=== PATIENT | male | born 1960 | race Caucasian/White ===

== ENCOUNTER 2018-11-03 05:13 | Emergency (ER) | payer OTHER ==
--- NOTE | 2018-11-03 06:06 | ED ---
General Adult HPI - General Source: patient Mode of arrival: wheelchair Limitations: no limitations <ShaeEttaquyen Mccann - Last Filed: 11/03/18 06:04> <Freddy Paez - Last Filed: 11/03/18 10:20> - General Chief complaint: GI Bleed Stated complaint: GI Bleed/Abdominal Pain Time Seen by Provider: 11/03/18 05:34 - History of Present Illness Initial comments: Dictation was produced using [employer] dictation software. please excuse any grammatical, word or spelling errors. Chief Complaint: 57-year-old male with past medical history of rectal cancer status post ileostomy, rectal surgery, colectomy presents with abdominal pain and bright red blood per rectum. History of Present Illness: Patient is a 57-year-old male with chief complaint of abdominal pain and bright red blood per rectum. Patient states he's been having intermittent bowels of GI bleeding. Patient states he was recently diagnosed with rectal cancer. July he had a rectal surgery. He reports that he had 10 cm removed from his rectum. He didn't had an ileostomy with ileostomy reversal. Patient states that his pain is mainly localized to his right abdomen. He denies any nausea or vomiting. The ROS documented in this emergency department record has been reviewed and confirmed by me. Those systems with pertinent positive or negative responses have been documented in the HPI. All other systems are other negative and/or noncontributory. PHYSICAL EXAM: General Impression: Alert and oriented x3, mild distress secondary to pain HEENT: Normocephalic atraumatic, extra-ocular movements intact, pupils equal and reactive to light bilaterally, mucous membranes moist. Cardiovascular: Heart regular rate and rhythm, S1&S2 audible, no murmurs, rubs or gallops Chest: Lungs clear to auscultation bilaterally, no rhonchi, no wheeze, no rales Abdomen: Diffuse abdominal tenderness worse in the right lower quadrant. Musculoskeletal: Pulses present and equal in all extremities, no peripheral edema Motor: Power 5/5 bilaterally, no focal deficits noted Neurological: CN II-XII grossly intact, no focal motor or sensory deficits noted Skin: Intact with no visualized rashes Psych: Normal affect and mood ED course: 57-year-old male presents with bright red blood per rectum and intermittent episodes of abdominal pain. As upon arrival shows heart rate of 102, rest of vital signs within acceptable limits. EKG interpretation: Ventricular rate 97, normal sinus rhythm, VT interval 144, care is 90, QTc 436. No VT prolongation, no QTC prolongation, no ST or T-wave changes noted. Overall, this EKG is unremarkable (Indra Kaufman) - Related Data Home Medications Medication Instructions Recorded Confirmed Docusate [Colace] 100 mg PO DAILY PRN 11/03/18 11/03/18 Ibuprofen [Motrin] 800 mg PO Q6H PRN 11/03/18 11/03/18 Lisinopril [Zestril] 10 mg PO DAILY 11/03/18 11/03/18 Loperamide HCl [Imodium A-D] 2 mg PO Q4H PRN 11/03/18 11/03/18 Allergies Allergy/AdvReac Type Severity Reaction Status Date / Time No Known Allergies Allergy Verified 11/03/18 08:51 Review of Systems ROS Other: All systems not noted in ROS Statement are negative. <Indra Kaufman - Last Filed: 11/03/18 06:04> ROS Other: All systems not noted in ROS Statement are negative. <Freddy Paez - Last Filed: 11/03/18 10:20> ROS Statement: Those systems with pertinent positive or pertinent negative responses have been documented in the HPI. Past Medical History Past Medical History: Cancer, Hypertension Additional Past Medical History / Comment(s): rectal, back pain, History of Any Multi-Drug Resistant Organisms: None Reported Past Surgical History: Appendectomy, Orthopedic Surgery Additional Past Surgical History / Comment(s): ileostomy with reversal, left elbow Past Psychological History: No Psychological Hx Reported Smoking Status: Former smoker Past Alcohol Use History: Rare Past Drug Use History: None Reported <Indra Kaufman - Last Filed: 11/03/18 06:04> General Exam Limitations: no limitations <Indra Kaufman - Last Filed: 11/03/18 06:04> Course Vital Signs 11/03/18 11/03/18 05:18 08:00 Temperature 98.9 F 97.9 F Pulse Rate 103 H 97 Respiratory 18 16 Rate Blood Pressure 155/84 166/98 O2 Sat by Pulse 98 96 Oximetry Medical Decision Making - Lab Data Result diagrams: 11/03/18 05:10 11/03/18 05:10 - Radiology Data Radiology results: report reviewed (I did review the imaging and report or is evidence of abnormal extraluminal air within an abnormal presacral soft tissue the suspected to be related to the patient's underlying rectal cancer.), image reviewed <Freddy Paez - Last Filed: 11/03/18 10:20> - Medical Decision Making I did discuss the eye with the patient. He was endorsed to me at shift change at 7 AM. This is pending lab and x-ray/CAT scan results CAT scan does show the evidence of extraluminal air within abnormal soft tissue in the presacral region. Patient will require transfer to [facility] in [place] where his surgeon Dr. Cast is at. I did discuss the case with Dr. Villalobos at [facility] emergency department was agreed to accept the patient transfer. Of note the patient has had more rectal bleeding since his arrival. He's had more abdominal pain. (Freddy Paez) - Lab Data Lab Results 11/03/18 11/03/18 11/03/18 Range/Units 05:10 05:10 05:10 WBC 7.3 (3.8-10.6) k/uL RBC 3.98 L (4.30-5.90) m/uL Hgb 10.1 L (13.0-17.5) gm/dL Hct 32.1 L (39.0-53.0) % MCV 80.7 (80.0-100.0) fL MCH 25.5 (25.0-35.0) pg MCHC 31.6 (31.0-37.0) g/dL RDW 14.7 (11.5-15.5) % Plt Count 253 (150-450) k/uL Neutrophils % 76 % Lymphocytes % 12 % Monocytes % 8 % Eosinophils % 2 % Basophils % 0 % Neutrophils # 5.6 (1.3-7.7) k/uL Lymphocytes # 0.9 L (1.0-4.8) k/uL Monocytes # 0.6 (0-1.0) k/uL Eosinophils # 0.2 (0-0.7) k/uL Basophils # 0.0 (0-0.2) k/uL Sodium 138 (137-145) mmol/L Potassium 4.0 (3.5-5.1) mmol/L Chloride 105 (98-107) mmol/L Carbon Dioxide 26 (22-30) mmol/L Anion Gap 7 mmol/L BUN 14 (9-20) mg/dL Creatinine 0.66 (0.66-1.25) mg/dL Est GFR (CKD-EPI)AfAm >90 (>60 ml/min/1.73 sqM) Est GFR (CKD-EPI)NonAf >90 (>60 ml/min/1.73 sqM) Glucose 119 H (74-99) mg/dL Calcium 8.8 (8.4-10.2) mg/dL Magnesium 2.0 (1.6-2.3) mg/dL Total Bilirubin 0.5 (0.2-1.3) mg/dL AST 15 L (17-59) U/L ALT 22 (21-72) U/L Alkaline Phosphatase 42 (38-126) U/L Total Protein 6.3 (6.3-8.2) g/dL Albumin 3.2 L (3.5-5.0) g/dL Stool Occult Blood (Negative) Blood Type A Positive Blood Type Recheck CABO Indicated Antibody Screen NEGATIVE Spec Expiration Date 11/06/2018 - 230911/03/18 Range/Units 08:09 WBC (3.8-10.6) k/uL RBC (4.30-5.90) m/uL Hgb (13.0-17.5) gm/dL Hct (39.0-53.0) % MCV (80.0-100.0) fL MCH (25.0-35.0) pg MCHC (31.0-37.0) g/dL RDW (11.5-15.5) % Plt Count (150-450) k/uL Neutrophils % % Lymphocytes % % Monocytes % % Eosinophils % % Basophils % % Neutrophils # (1.3-7.7) k/uL Lymphocytes # (1.0-4.8) k/uL Monocytes # (0-1.0) k/uL Eosinophils # (0-0.7) k/uL Basophils # (0-0.2) k/uL Sodium (137-145) mmol/L Potassium (3.5-5.1) mmol/L Chloride (98-107) mmol/L Carbon Dioxide (22-30) mmol/L Anion Gap mmol/L BUN (9-20) mg/dL Creatinine (0.66-1.25) mg/dL Est GFR (CKD-EPI)AfAm (>60 ml/min/1.73 sqM) Est GFR (CKD-EPI)NonAf (>60 ml/min/1.73 sqM) Glucose (74-99) mg/dL Calcium (8.4-10.2) mg/dL Magnesium (1.6-2.3) mg/dL Total Bilirubin (0.2-1.3) mg/dL AST (17-59) U/L ALT (21-72) U/L Alkaline Phosphatase (38-126) U/L Total Protein (6.3-8.2) g/dL Albumin (3.5-5.0) g/dL Stool Occult Blood Positive (Negative) Blood Type Blood Type Recheck Antibody Screen Spec Expiration Date Disposition <Indra Kaufman - Last Filed: 11/03/18 06:04> Is patient prescribed a controlled substance at d/c from ED?: No - Out of Hospital Transfer - Req. Specs Out of Hospital Transfer - Requested Specifics: Other Emergency Center <Freddy Paez - Last Filed: 11/03/18 10:20> Clinical Impression: Rectal bleeding, Hematochezia, Abdominal pain, Anemia, History of rectal cancer Disposition: OTHER INSTITUTION NOT DEFINED Condition: Serious Referrals: El Sheppard DO [Primary Care Provider] - 1-2 days
[2018-11-03 06:25] LABS: Basophils % (A) 0 %; Eosinophils # (A) 0.2 k/uL (0-0.7); Eosinophils % (A) 2 %; HCT 32.1 % (39.0-53.0); HGB 10.1 gm/dL (13.0-17.5); Lymphocytes # (A) 0.9 k/uL (1.0-4.8); Lymphocytes % (A) 12 %; MCH 25.5 pg (25.0-35.0); MCHC 31.6 g/dL (31.0-37.0); MCV 80.7 fL (80.0-100.0); Mean Platelet Volume 6.2; Monocytes # (A) 0.6 k/uL (0-1.0); Monocytes % (A) 8 %; Neutrophils # (A) 5.6 k/uL (1.3-7.7); Neutrophils % (A) 76 %; Platelet Count 253 k/uL (150-450); RBC 3.98 m/uL (4.30-5.90); RDW 14.7 % (11.5-15.5); WBC 7.3 k/uL (3.8-10.6)
[2018-11-03 06:36] LABS: ALT 22 U/L (21-72); AST 15 U/L (17-59); Albumin 3.2 g/dL (3.5-5.0); Alkaline Phosphatase 42 U/L (38-126); Anion Gap 7 mmol/L; Blood Urea Nitrogen 14 mg/dL (9-20); Calcium 8.8 mg/dL (8.4-10.2); Carbon Dioxide 26 mmol/L (22-30); Chloride 105 mmol/L (98-107); Glucose 119 mg/dL (74-99); Sodium 138 mmol/L (137-145); Total Bilirubin 0.5 mg/dL (0.2-1.3); Total Protein 6.3 g/dL (6.3-8.2)
[2018-11-03] MEDS ORDERED: fentaNYL (PF) 50 MCG/ML 2 ML AMP IV STA ×2 (07:34→10:18)
--- NOTE | 2018-11-03 07:35 | CT ---
EXAMINATION TYPE: CT abdomen pelvis w con DATE OF EXAM: 11/03/2018 COMPARISON: CT 08/29/2017, 08/16/2017 HISTORY: Right side swelling, pain, nausea, vomiting CT DLP: 2143.9 mGycm Automated exposure control for dose reduction was used. TECHNIQUE: Helical acquisition of images from the lung bases through the pelvis have been completed. CONTRAST: Performed without Oral Contrast and with IV Contrast, patient injected with 100 mL of Isovue 300. FINDINGS: LUNG BASES: No significant interval change is appreciated. Posterior diaphragmatic hernia on the righ t is noted, there is fat within the right lung base as on prior exam. No pleural or pericardial effus ion. AORTA: No significant abnormality is appreciated. LIVER/GB: No significant abnormality is appreciated. Colonic interposition noted anterior to the live r somewhat increased compared to prior exams. Subcentimeter hypodensity on axial image 29 within the posterior right lobe of the liver may been present on previous and is indeterminate Gallbladder is no rmal. PANCREAS: No significant abnormality is seen. SPLEEN: No significant abnormality is seen. ADRENALS: No significant abnormality is seen. KIDNEYS: Small hypodensity within the right kidney is stable laterally in likely represents cortical cyst. No hydronephrosis bilaterally. REPRODUCTIVE ORGANS: No significant interval change is seen, some calcification associated with the p rostate suspected BOWEL: Colonic stent is in place. Abnormal soft tissue present in the presacral location has develop ed in the interval. Some lucency is present within the abnormal presacral soft tissue, likely extrape ritoneal, there is soft tissue thickening of the colon along the distribution of the stent within the sigmoid. Anterior abdominal wall hernia is present in the right lower quadrant and has developed in the interval, suspect prior surgery at this level, surgical juan jose are present along the small bowel loops, no evident bowel obstruction. Bowel loops present within what may have been region of prior s urgical stoma and parastomal hernia. There are fluid-filled loops of small bowel without distention. FREE AIR: No Free Air visible. ASCITES: None visible. PELVIC ADENOPATHY: None visualized. RETROPERITONEAL ADENOPATHY: No Retroperitoneal Adenopathy visible. URINARY BLADDER: Thickening of the urinary bladder is noted, correlate to exclude cystitis versus po sttreatment change, chronic outlet obstruction OSSEOUS STRUCTURES: There are degenerative disc changes in the visualized spine. Arthropathy present in the right hip.. IMPRESSION: POSTOPERATIVE POSTPROCEDURAL CHANGES DESCRIBED. ABNORMAL EXTRALUMINAL AIR WITHIN THE ABNORMAL PRES ACRAL SOFT TISSUES, SUSPECT FINDINGS ARE RELATED TO UNDERLYING CARCINOMA. Follow-up may be of benefit .
[2018-11-03 10:30] VITALS: RESP 18
[2018-11-03 11:02] VITALS: BP 159/92; PULSE 91; TEMP 98.2
== END 2018-11-03 11:15 | disposition other institution (70) ==
LOC: EC 05:13
DX: K92.1 Melena (principal); D64.9 Anemia, unspecified; I10 Essential (primary) hypertension; Z87.891 Personal history of nicotine dependence; Z79.899 Other long term (current) drug therapy; Z85.048 Personal history of other malignant neoplasm of rectum, rectosigmoid junction, and anus; Z90.49 Acquired absence of other specified parts of digestive tract; Z98.890 Other specified postprocedural states
CPT/HCPCS: 36415; 93005; 86900; 86901; 80053; 83735; 85025; 86850; 82272; 74177; 99285; 96374; 96376; J3010; Q9967

== ENCOUNTER → 2018-11-08 | Outpatient (CLI) | payer OTHER | END | disposition home or self-care (01) | LOC: RADMRIMAIN 18:07 | PROVIDERS: ATTEND Family Medicine | DX: Z53.9 Procedure and treatment not carried out, unspecified reason (principal) ==

== ENCOUNTER → 2018-11-30 | Outpatient (CLI) | payer OTHER ==
--- NOTE | 2018-12-01 13:32 | PE ---
EXAMINATION TYPE: PET CT fusion skull to thigh DATE OF EXAM: 11/30/2018 COMPARISON: CT abdomen pelvis 11/03/2018, CT chest 06/29/2018 Prior PET/CT: None. Exam is labeled subsequent although no history is pro vided where the prior PET/CT has been performed. HISTORY: Rectal cancer TECHNIQUE: Following the intravenous administration of 13.537 mCi of F-18 FDG, whole body images are performed from the skull base to the midthigh. Images are reviewed on the computer in the coronal, axial, and sagittal planes. Reconstructed rotating images are created on independent workstation and reviewed on the computer. A localization and attenuation correction CT is performed in conjunction with the PET scan. DLP: 665.81 mGycm SCAN: Subsequent. Images are unavailable. Blood glucose: 112 mg/dL Average Mediastinum SUV: 1.26 Average Liver SUV: 2.42 FINDINGS: NECK: No suspicious uptake. There is uptake at the level of vocal cords which could be related to fo rmation during the time of the exam. THORAX: No abnormal uptake ABDOMEN: No abnormal uptake PELVIS: There is uptake within the distal sigmoid colon extending to the level the rectum. This appea rs to be the level of a stent. No suspicious uptake within adenopathy is evident. OSSEOUS STRUCTURES: No abnormal uptake LOCALIZATION CT: There is a right anterior pelvic wall herniation containing multiple loops of bowel. No obstruction is evident. COMPARISON: The ascending thoracic aorta at the level of main pulmonary artery is 3.6 cm. The main pu lmonary artery the bifurcation is 3.0 cm. Mild coronary artery calcification is present. Gestational pancreas is evident. IMPRESSION: 1. No suspicious uptake suggestive for metastatic disease. 2. There is uptake within the region of the stent which could be inflammatory in nature. Uptake withi n masslike areas are not identified.
== END ==
LOC: RADPETMAIN 15:27
PROVIDERS: ATTEND Internal Medicine Hematology & Oncology
DX: C20 Malignant neoplasm of rectum (principal)
CPT/HCPCS: 78815; A9552

== ENCOUNTER 2019-05-21 14:04 | Emergency (ER) | payer OTHER ==
[2019-05-21] MEDS ORDERED: ONDANSETRON 4 MG/2 ML VIAL IVP STA (14:57)
[2019-05-21] MEDS ORDERED: SODIUM CHLORIDE 0.9% 1,000 ML IV STA (14:57)
[2019-05-21] MEDS ORDERED: MORPHINE SULFATE 4 MG/ML SYRINGE IV STA (14:57)
[2019-05-21 15:09] LABS: Anisocytosis Slight; Basophils % (A) 0 %; Eosinophils % (A) 0 %; HCT 34.6 % (39.0-53.0); HGB 11.5 gm/dL (13.0-17.5); Lymphocytes # (A) 0.4 k/uL (1.0-4.8); Lymphocytes % (A) 4 %; MCH 26.7 pg (25.0-35.0); MCHC 33.1 g/dL (31.0-37.0); MCV 80.7 fL (80.0-100.0); Mean Platelet Volume 6.8; Monocytes # (A) 0.2 k/uL (0-1.0); Monocytes % (A) 2 %; Neutrophils # (A) 9.3 k/uL (1.3-7.7); Neutrophils % (A) 93 %; Platelet Count 281 k/uL (150-450); RBC 4.29 m/uL (4.30-5.90); RDW 17.2 % (11.5-15.5)
[2019-05-21 15:23] LABS: ALT 15 U/L (21-72); AST 18 U/L (17-59); African American GFR (CKD) >90 (>60 ml/min/1.73 sqM); Albumin 4.2 g/dL (3.5-5.0); Alkaline Phosphatase 66 U/L (38-126); Amylase 48 U/L (30-110); Anion Gap 9 mmol/L; Blood Urea Nitrogen 15 mg/dL (9-20); Calcium 9.7 mg/dL (8.4-10.2); Carbon Dioxide 23 mmol/L (22-30); Chloride 105 mmol/L (98-107); Glucose 175 mg/dL (74-99); Sodium 137 mmol/L (137-145); Total Bilirubin 0.5 mg/dL (0.2-1.3); Total Protein 7.7 g/dL (6.3-8.2)
--- NOTE | 2019-05-21 15:48 | ED ---
Nausea/Vomiting/Diarrhea HPI - General Chief complaint: Nausea/Vomiting/Diarrhea Stated complaint: N & V Time Seen by Provider: 05/21/19 14:13 Source: patient Mode of arrival: wheelchair Limitations: no limitations - History of Present Illness Initial comments: Patient is a 58-year-old male presenting to the emergency department with complaints of nausea, vomiting, abdominal pain 2 days. Patient has past medical history of rectal cancer with colon resection. Patient states the last 2 days he has been nauseous, vomiting and right sided abdominal pain. Patient has also been having diarrhea however that is his normal since his prior surgeries. Patient is denying fever although he has been having hot flashes along with chills on and off with the nausea. Patient denies any chest pain, shortness of breath. Patient denies any urinary complaints. Patient does have Donovan 10's at home that he takes twice a day for his continuous abdominal pain however he has been vomiting for the past 2 days and does not know if the pills in his system. Patient has no other complaints at this time. Upon arrival to ER, vital signs are stable. - Related Data Home Medications Medication Instructions Recorded Confirmed Lisinopril [Zestril] 10 mg PO DAILY 11/03/18 05/21/19 Loperamide HCl [Imodium A-D] 2 mg PO Q4H PRN 11/03/18 05/21/19 Diphenox-Atrop 2.5-0.025 mg 1 tab PO TID PRN 05/21/19 05/21/19 [Lomotil] Hydrocodone/Acetaminophen [Donovan 2 tab PO Q6HR PRN 05/21/19 05/21/19 10-325] Previous Rx's Medication Instructions Recorded Ondansetron Odt [Zofran Odt] 4 mg PO Q8HR PRN #10 tab 05/21/19 Allergies Allergy/AdvReac Type Severity Reaction Status Date / Time No Known Allergies Allergy Verified 05/21/19 14:41 Review of Systems ROS Statement: Those systems with pertinent positive or pertinent negative responses have been documented in the HPI. ROS Other: All systems not noted in ROS Statement are negative. Past Medical History Past Medical History: Cancer, Hypertension Additional Past Medical History / Comment(s): rectal, back pain, History of Any Multi-Drug Resistant Organisms: None Reported Past Surgical History: Appendectomy, Orthopedic Surgery Additional Past Surgical History / Comment(s): ileostomy with reversal, left elbow Past Psychological History: No Psychological Hx Reported Smoking Status: Former smoker Past Alcohol Use History: Rare Past Drug Use History: None Reported General Exam - General Exam Comments Initial Comments: GENERAL: Disheveled appearance, appears in mild distress secondary to abdominal pain, obese. HEAD: Atraumatic, normocephalic. EYES: Pupils equal round and reactive to light, extraocular movements intact, sclera anicteric, conjunctiva are normal. ENT: TMs normal, nares patent, oropharynx clear without exudates. Moist mucous membranes. NECK: Normal range of motion, supple without lymphadenopathy or JVD. LUNGS: Breath sounds clear to auscultation bilaterally and equal. No wheezes rales or rhonchi. HEART: Regular rate and rhythm without murmurs, rubs or gallops. ABDOMEN: Tenderness to palpation on the right upper quadrant and right side. There is some firmness to the right side surrounding the abdominal scars from prior surgeries. No erythema of the overlying skin. Soft, normoactive bowel sounds. No guarding, no rebound. : Deferred EXTREMITIES: Normal range of motion, no pitting or edema. No clubbing or cyanosis. NEUROLOGICAL: Cranial nerves II through XII grossly intact. Normal speech, normal gait. PSYCH: Normal mood, normal affect. SKIN: Warm, Dry, normal turgor, no rashes or lesions noted. Limitations: no limitations Course Vital Signs 05/21/19 05/21/19 05/21/19 14:06 16:42 18:02 Temperature 97.8 F 98.5 F Pulse Rate 95 77 79 Respiratory 16 16 18 Rate Blood Pressure 155/81 147/89 154/82 O2 Sat by Pulse 97 99 100 Oximetry Medical Decision Making - Medical Decision Making Patient is a 58-year-old male presenting with nausea, vomiting, abdominal pain 2 days. Patient has history of rectal cancer with resection. Upon arrival to ER, vital signs are stable. On exam patient has tenderness of the right upper quadrant. CBC, CMP are within normal limits. Lactic acid is 1.4. UA is normal, no signs of infection. CT of the abdomen shows no bowel obstruction. No suspicious or Acute findings on this study. CT was compared to previous in October 2018. Patient was given fluids, pain medication, Zofran. Patient reports improvement in symptoms. Patient will follow up with surgeon as discussed several lipoma. Patient was given copy of computed tomography scan to bring to appointment. Patient was also sent home with Zofran for nausea. Patient stable for discharge at this time. Return parameters were discussed with the patient he verbalizes understanding. Case discussed with Dr. Sesay. - Lab Data Result diagrams: 05/21/19 14:25 05/21/19 14:25 Lab Results 05/21/19 05/21/19 05/21/19 Range/Units 14:25 14:25 14:25 WBC 10.0 (3.8-10.6) k/uL RBC 4.29 L (4.30-5.90) m/uL Hgb 11.5 L (13.0-17.5) gm/dL Hct 34.6 L (39.0-53.0) % MCV 80.7 (80.0-100.0) fL MCH 26.7 (25.0-35.0) pg MCHC 33.1 (31.0-37.0) g/dL RDW 17.2 H (11.5-15.5) % Plt Count 281 (150-450) k/uL Neutrophils % 93 % Lymphocytes % 4 % Monocytes % 2 % Eosinophils % 0 % Basophils % 0 % Neutrophils # 9.3 H (1.3-7.7) k/uL Lymphocytes # 0.4 L (1.0-4.8) k/uL Monocytes # 0.2 (0-1.0) k/uL Eosinophils # 0.0 (0-0.7) k/uL Basophils # 0.0 (0-0.2) k/uL Anisocytosis Slight Sodium 137 (137-145) mmol/L Potassium 4.0 (3.5-5.1) mmol/L Chloride 105 (98-107) mmol/L Carbon Dioxide 23 (22-30) mmol/L Anion Gap 9 mmol/L BUN 15 (9-20) mg/dL Creatinine 0.80 (0.66-1.25) mg/dL Est GFR (CKD-EPI)AfAm >90 (>60 ml/min/1.73 sqM) Est GFR (CKD-EPI)NonAf >90 (>60 ml/min/1.73 sqM) Glucose 175 H (74-99) mg/dL Plasma Lactic Acid Gerry 1.4 (0.7-2.0) mmol/L Calcium 9.7 (8.4-10.2) mg/dL Total Bilirubin 0.5 (0.2-1.3) mg/dL AST 18 (17-59) U/L ALT 15 L (21-72) U/L Alkaline Phosphatase 66 (38-126) U/L Total Protein 7.7 (6.3-8.2) g/dL Albumin 4.2 (3.5-5.0) g/dL Amylase 48 (30-110) U/L Lipase 14 L (23-300) U/L Urine Color Urine Appearance (Clear) Urine pH (5.0-8.0) Ur Specific [employer] (1.001-1.035) Urine Protein (Negative) Urine Glucose (UA) (Negative) Urine Ketones (Negative) Urine Blood (Negative) Urine Nitrite (Negative) Urine Bilirubin (Negative) Urine Urobilinogen (<2.0) mg/dL Ur Leukocyte Esterase (Negative) 05/21/19 Range/Units 16:36 WBC (3.8-10.6) k/uL RBC (4.30-5.90) m/uL Hgb (13.0-17.5) gm/dL Hct (39.0-53.0) % MCV (80.0-100.0) fL MCH (25.0-35.0) pg MCHC (31.0-37.0) g/dL RDW (11.5-15.5) % Plt Count (150-450) k/uL Neutrophils % % Lymphocytes % % Monocytes % % Eosinophils % % Basophils % % Neutrophils # (1.3-7.7) k/uL Lymphocytes # (1.0-4.8) k/uL Monocytes # (0-1.0) k/uL Eosinophils # (0-0.7) k/uL Basophils # (0-0.2) k/uL Anisocytosis Sodium (137-145) mmol/L Potassium (3.5-5.1) mmol/L Chloride (98-107) mmol/L Carbon Dioxide (22-30) mmol/L Anion Gap mmol/L BUN (9-20) mg/dL Creatinine (0.66-1.25) mg/dL Est GFR (CKD-EPI)AfAm (>60 ml/min/1.73 sqM) Est GFR (CKD-EPI)NonAf (>60 ml/min/1.73 sqM) Glucose (74-99) mg/dL Plasma Lactic Acid Gerry (0.7-2.0) mmol/L Calcium (8.4-10.2) mg/dL Total Bilirubin (0.2-1.3) mg/dL AST (17-59) U/L ALT (21-72) U/L Alkaline Phosphatase (38-126) U/L Total Protein (6.3-8.2) g/dL Albumin (3.5-5.0) g/dL Amylase (30-110) U/L Lipase (23-300) U/L Urine Color Yellow Urine Appearance Clear (Clear) Urine pH 7.0 (5.0-8.0) Ur Specific [employer] >1.050 H (1.001-1.035) Urine Protein Trace H (Negative) Urine Glucose (UA) Negative (Negative) Urine Ketones Negative (Negative) Urine Blood Negative (Negative) Urine Nitrite Negative (Negative) Urine Bilirubin Negative (Negative) Urine Urobilinogen <2.0 (<2.0) mg/dL Ur Leukocyte Esterase Negative (Negative) Disposition Clinical Impression: Nausea & vomiting, Abdominal pain Disposition: HOME SELF-CARE Condition: Stable Instructions (If sedation given, give patient instructions): Abdominal Pain (ED) Additional Instructions: Please return to the Emergency Department if symptoms worsen or any other co ncerns. Follow up with surgeon as discussed. Bring CT with you. Take Zofran as needed for nausea. Prescriptions: Ondansetron Odt [Zofran Odt] 4 mg PO Q8HR PRN #10 tab PRN Reason: Nausea Is patient prescribed a controlled substance at d/c from ED?: No Referrals: Camden Meier MD [Primary Care Provider] - 1-2 days
--- NOTE | 2019-05-21 16:10 | CT ---
EXAMINATION TYPE: CT abdomen pelvis w con DATE OF EXAM: 05/21/2019 COMPARISON: CT abdomen and pelvis November 03, 2018 HISTORY: Abdominal pain with nausea and vomiting. History of rectal cancer. CT DLP: 2506.0 mGycm, Automated Exposure Control for Dose Reduction was Utilized. CONTRAST: CT scan of the abdomen and pelvis is performed without oral but with IV Contrast, patient injected wi th 100 mL of Isovue 300. FINDINGS: LUNG BASES: Posterior right diaphragmatic hernia redemonstrated. LIVER/GB: No significant abnormality is appreciated. PANCREAS: No significant abnormality is seen. SPLEEN: Splenomegaly redemonstrated measuring 13.7 cm long axis coronal image 64. ADRENALS: No significant abnormality is seen. KIDNEYS: Roughly 1.2 cm simple appearing cyst upper pole right kidney axial image 24 series 301. BOWEL: Evaluation bowel suboptimal secondary to lack of enteric contrast. No suspicious small or larg e bowel dilatation. Persistent right lower quadrant incisional hernia containing bowel that significa ntly changed from most recent CT. Surgical sutures in bowel loop at this level are redemonstrated. Persistent metallic stent in the sigmoid colon and rectum with ill-defined soft tissue presacral spac e near distal aspect of stent axial image 78 redemonstrated. This extends superiorly axial image 70. This has similar appearance to prior study. Neoplasm at this level is suspected. Slight interval prog ression cannot be excluded. No proximal obstruction noted suggesting patency of metallic stent. PROSTATE/SEMINAL VESICLES: No gross abnormality seen. LYMPH NODES: No greater than 1cm abdominal or pelvic lymph nodes are appreciated. OSSEOUS STRUCTURES: Severe superior joint space loss with [id number] formation and subchondral cyst ic change right hip is redemonstrated. OTHER: No significant additional abnormality is seen. IMPRESSION: No bowel obstruction. No suspicious new or acute findings identified on this study.
[2019-05-21 16:46] LABS: Appearance,Urine Clear (Clear); Bilirubin,Urine Negative (Negative); Blood,Urine Negative (Negative); Color,Urine Yellow; Glucose,Urine (UA) Negative (Negative); Ketones,Urine Negative (Negative); Leukocyte Esterase,Urine Negative (Negative); Nitrite,Urine Negative (Negative); Protein,Urine Trace (Negative); Urobilinogen,Urine <2.0 mg/dL (<2.0)
[2019-05-21] MEDS ORDERED: MORPHINE SULFATE 2 MG/ML SYRINGE IVP ONE (16:56)
[2019-05-21] MEDS ORDERED: METOCLOPRAMIDE 5 MG/ML 2 ML VIAL IVP STA (16:56)
[2019-05-21 17:04] LABS: Specific Gravity,Urine >1.050 (1.001-1.035)
[2019-05-21 18:03] VITALS: BP 154/82; PULSE 79; RESP 18; TEMP 98.5
== END 2019-05-21 18:02 | disposition home or self-care (01) ==
LOC: EC 14:04
DX: R10.11 Right upper quadrant pain (principal); R11.2 Nausea with vomiting, unspecified; R19.7 Diarrhea, unspecified; R68.83 Chills (without fever); I10 Essential (primary) hypertension; Z85.048 Personal history of other malignant neoplasm of rectum, rectosigmoid junction, and anus; Z90.49 Acquired absence of other specified parts of digestive tract; Z93.2 Ileostomy status; Z87.891 Personal history of nicotine dependence; Z79.899 Other long term (current) drug therapy
CPT/HCPCS: 36415; 80053; 82150; 83605; 83690; 85025; 81003; 74177; 99285; 96374; 96375 ×2; 96376; 96361 ×3; J2270 ×2; J2765; J2405; Q9967

== ENCOUNTER → 2019-10-02 | Outpatient (CLI) | payer OTHER ==
[2019-10-02 10:45] LABS: Basophils # (A) 0.1 k/uL (0-0.2); Basophils % (A) 1 %; Eosinophils # (A) 0.1 k/uL (0-0.7); Eosinophils % (A) 2 %; HCT 31.3 % (39.0-53.0); HGB 9.4 gm/dL (13.0-17.5); Hypochromasia Marked; Lymphocytes # (A) 0.9 k/uL (1.0-4.8); Lymphocytes % (A) 15 %; MCH 24.2 pg (25.0-35.0); MCHC 29.9 g/dL (31.0-37.0); MCV 80.7 fL (80.0-100.0); Mean Platelet Volume 6.6; Monocytes # (A) 0.5 k/uL (0-1.0); Monocytes % (A) 8 %; Neutrophils # (A) 4.6 k/uL (1.3-7.7); Neutrophils % (A) 72 %; Platelet Count 371 k/uL (150-450); RBC 3.87 m/uL (4.30-5.90); RDW 15.4 % (11.5-15.5); WBC 6.3 k/uL (3.8-10.6)
== END | disposition home or self-care (01) ==
LOC: LABPAT 09:14
PROVIDERS: ATTEND Surgery
DX: Z01.812 Encounter for preprocedural laboratory examination (principal); K43.0 Incisional hernia with obstruction, without gangrene; F17.200 Nicotine dependence, unspecified, uncomplicated; D64.9 Anemia, unspecified
CPT/HCPCS: 36415; 84132; 85025

== ENCOUNTER 2019-10-12 19:43 | Inpatient (IN) | payer OTHER ==
[2019-10-12] MEDS ORDERED: MORPHINE SULFATE 4 MG/ML SYRINGE IV STA (20:22)
[2019-10-12] MEDS ORDERED: PANTOPRAZOLE 40 MG/10 ML VIAL IVP STA (20:22)
[2019-10-12] MEDS ORDERED: SODIUM CHLORIDE 0.9% 1,000 ML IV STA (20:22)
[2019-10-12] MEDS ORDERED: SODIUM CHLORIDE 0.9% 500 ML 500 ML IV STA (20:22)
[2019-10-12] MEDS ORDERED: ONDANSETRON 4 MG/2 ML VIAL IVP STA (20:22)
[2019-10-12] MEDS ORDERED: MORPHINE SULFATE 4 MG/ML SYRINGE IVP PRN (20:22)
--- NOTE | 2019-10-12 20:22 | ED ---
Abdominal Pain HPI - General Chief Complaint: Abdominal Pain Stated Complaint: Abd pain Time Seen by Provider: 10/12/19 20:02 Source: patient, RN notes reviewed, old records reviewed Mode of arrival: ambulatory Limitations: no limitations - History of Present Illness Initial Comments: This is a 58-year-old male to the ER for evaluation abdominal pain with persistent nausea vomiting history of colon cancer, patient presenting for persistent nausea vomiting unable to take the medication patient is scheduled for surgery in the morning with hernia repair with Dr. Lawson. Please undulate his medications down persistent nausea vomiting MD Complaint: abdominal pain -: hour(s), days(s) Location: epigastric, suprapubic Radiation: epigastric, suprapubic Migration to: epigastric, suprapubic Severity: moderate Severity scale (1-10): 4 Quality: aching Consistency: intermittent Improves With: nothing Worsens With: nothing Associated Symptoms: nausea, vomiting, diarrhea Treatments Prior to Arrival: prescription analgesics - Related Data Home Medications Medication Instructions Recorded Confirmed Loperamide HCl [Imodium A-D] 2 mg PO Q4H PRN 11/03/18 10/08/19 Diphenox-Atrop 2.5-0.025 mg 1 tab PO TID PRN 05/21/19 10/08/19 [Lomotil] Hydrocodone/Acetaminophen [[place] 2 tab PO Q6HR PRN 05/21/19 10/08/19 10-325] Triamterene/Hydrochlorothiazid 1 each PO QAM 10/08/19 10/08/19 [Triamterene-Hctz 37.5-25 mg Tb] Allergies Allergy/AdvReac Type Severity Reaction Status Date / Time No Known Allergies Allergy Verified 10/12/19 19:47 Review of Systems ROS Statement: Those systems with pertinent positive or pertinent negative responses have been documented in the HPI. ROS Other: All systems not noted in ROS Statement are negative. Past Medical History Past Medical History: Cancer Additional Past Medical History / Comment(s): rectal, back pain, rectal/colon cancer History of Any Multi-Drug Resistant Organisms: None Reported Past Surgical History: Appendectomy, Orthopedic Surgery Additional Past Surgical History / Comment(s): ileostomy with reversal, left elbow Past Psychological History: No Psychological Hx Reported Smoking Status: Never smoker Past Alcohol Use History: Rare Past Drug Use History: None Reported General Exam Limitations: no limitations General appearance: alert, in no apparent distress Head exam: Present: atraumatic, normocephalic, normal inspection Eye exam: Present: normal appearance, PERRL, EOMI. Absent: scleral icterus, conjunctival injection, periorbital swelling ENT exam: Present: normal exam, mucous membranes moist Neck exam: Present: normal inspection. Absent: tenderness, meningismus, lymphadenopathy Respiratory exam: Present: normal lung sounds bilaterally. Absent: respiratory distress, wheezes, rales, rhonchi, stridor Cardiovascular Exam: Present: regular rate, normal rhythm, normal heart sounds. Absent: systolic murmur, diastolic murmur, rubs, gallop, clicks GI/Abdominal exam: Present: soft, normal bowel sounds. Absent: distended, tenderness, guarding, rebound, rigid Extremities exam: Present: normal inspection, full ROM, normal capillary refill. Absent: tenderness, pedal edema, joint swelling, calf tenderness Back exam: Present: normal inspection Neurological exam: Present: alert, oriented X3, CN II-XII intact Psychiatric exam: Present: normal affect, normal mood Skin exam: Present: warm, dry, intact, normal color. Absent: rash Course Vital Signs 10/12/19 19:45 Temperature 97.9 F Pulse Rate 127 H Respiratory 20 Rate Blood Pressure 155/83 O2 Sat by Pulse 97 Oximetry - Reevaluation(s) Reevaluation #1: 10/12/19 20:21 Medical records reviewed Reevaluation #2: 10/12/19 21:56 Patient still having significant pain persistent nausea and vomiting - Consultations Consultation #1: We'll admit to Dr. Lawson spoke with Dr. Trejo, Medical Decision Making - Medical Decision Making 58 male to the ER for evaluation large and small bowel ileus complication, patient does have known abdominal wall hernia scheduled for surgery tomorrow. Patient will keep surgery appointment will admit the hospital for symptom management - Lab Data Result diagrams: 10/12/19 20:23 10/12/19 20:23 Lab Results 10/12/19 10/12/19 10/12/19 Range/Units 20:23 20:23 20:23 WBC 10.0 (3.8-10.6) k/uL RBC 4.63 (4.30-5.90) m/uL Hgb 11.1 L (13.0-17.5) gm/dL Hct 36.0 L (39.0-53.0) % MCV 77.7 L (80.0-100.0) fL MCH 24.1 L (25.0-35.0) pg MCHC 31.0 (31.0-37.0) g/dL RDW 14.9 (11.5-15.5) % Plt Count 565 H (150-450) k/uL Neutrophils % 81 % Lymphocytes % 9 % Monocytes % 7 % Eosinophils % 0 % Basophils % 0 % Neutrophils # 8.1 H (1.3-7.7) k/uL Lymphocytes # 0.9 L (1.0-4.8) k/uL Monocytes # 0.7 (0-1.0) k/uL Eosinophils # 0.0 (0-0.7) k/uL Basophils # 0.0 (0-0.2) k/uL Hypochromasia Moderate PT (9.0-12.0) sec INR (<1.2) APTT (22.0-30.0) sec Sodium 135 L (137-145) mmol/L Potassium 4.2 (3.5-5.1) mmol/L Chloride 97 L (98-107) mmol/L Carbon Dioxide 24 (22-30) mmol/L Anion Gap 14 mmol/L BUN 21 H (9-20) mg/dL Creatinine 1.42 H (0.66-1.25) mg/dL Est GFR (CKD-EPI)AfAm 64 (>60 ml/min/1.73 sqM) Est GFR (CKD-EPI)NonAf 55 (>60 ml/min/1.73 sqM) Glucose 146 H (74-99) mg/dL Plasma Lactic Acid Gerry 1.5 (0.7-2.0) mmol/L Calcium 9.9 (8.4-10.2) mg/dL Total Bilirubin 0.7 (0.2-1.3) mg/dL AST 18 (17-59) U/L ALT 10 (4-49) U/L Alkaline Phosphatase 97 (38-126) U/L Creatine Kinase 36 L (55-170) U/L Total Protein 8.5 H (6.3-8.2) g/dL Albumin 4.4 (3.5-5.0) g/dL Amylase 47 (30-110) U/L Lipase 39 (23-300) U/L Urine Color Urine Appearance (Clear) Urine pH (5.0-8.0) Ur Specific [place] (1.001-1.035) Urine Protein (Negative) Urine Glucose (UA) (Negative) Urine Ketones (Negative) Urine Blood (Negative) Urine Nitrite (Negative) Urine Bilirubin (Negative) Urine Urobilinogen (<2.0) mg/dL Ur Leukocyte Esterase (Negative) Urine RBC (0-5) /hpf Urine WBC (0-5) /hpf Ur Squamous Epith Cells (0-4) /hpf Amorphous Sediment (None) /hpf Urine Bacteria (None) /hpf Hyaline Casts (0-2) /lpf Urine Mucus (None) /hpf 10/12/19 10/12/19 Range/Units 20:23 20:23 WBC (3.8-10.6) k/uL RBC (4.30-5.90) m/uL Hgb (13.0-17.5) gm/dL Hct (39.0-53.0) % MCV (80.0-100.0) fL MCH (25.0-35.0) pg MCHC (31.0-37.0) g/dL RDW (11.5-15.5) % Plt Count (150-450) k/uL Neutrophils % % Lymphocytes % % Monocytes % % Eosinophils % % Basophils % % Neutrophils # (1.3-7.7) k/uL Lymphocytes # (1.0-4.8) k/uL Monocytes # (0-1.0) k/uL Eosinophils # (0-0.7) k/uL Basophils # (0-0.2) k/uL Hypochromasia PT 11.1 (9.0-12.0) sec INR 1.1 (<1.2) APTT 25.7 (22.0-30.0) sec Sodium (137-145) mmol/L Potassium (3.5-5.1) mmol/L Chloride (98-107) mmol/L Carbon Dioxide (22-30) mmol/L Anion Gap mmol/L BUN (9-20) mg/dL Creatinine (0.66-1.25) mg/dL Est GFR (CKD-EPI)AfAm (>60 ml/min/1.73 sqM) Est GFR (CKD-EPI)NonAf (>60 ml/min/1.73 sqM) Glucose (74-99) mg/dL Plasma Lactic Acid Gerry (0.7-2.0) mmol/L Calcium (8.4-10.2) mg/dL Total Bilirubin (0.2-1.3) mg/dL AST (17-59) U/L ALT (4-49) U/L Alkaline Phosphatase (38-126) U/L Creatine Kinase (55-170) U/L Total Protein (6.3-8.2) g/dL Albumin (3.5-5.0) g/dL Amylase (30-110) U/L Lipase (23-300) U/L Urine Color Vivi Urine Appearance Slightly Cloudy (Clear) Urine pH 6.0 (5.0-8.0) Ur Specific [place] 1.030 (1.001-1.035) Urine Protein 1+ (Negative) Urine Glucose (UA) Negative (Negative) Urine Ketones Negative (Negative) Urine Blood Negative (Negative) Urine Nitrite Negative (Negative) Urine Bilirubin 1+ H (Negative) Urine Urobilinogen 2.0 (<2.0) mg/dL Ur Leukocyte Esterase Negative (Negative) Urine RBC 1 (0-5) /hpf Urine WBC 2 (0-5) /hpf Ur Squamous Epith Cells 1 (0-4) /hpf Amorphous Sediment Rare H (None) /hpf Urine Bacteria Rare H (None) /hpf Hyaline Casts 16 H (0-2) /lpf Urine Mucus Few H (None) /hpf - Radiology Data Radiology results: report reviewed (X-ray abdominal series chest social large and small bowel ileus), image reviewed Disposition Clinical Impression: Abdominal pain, Nausea & vomiting, Constipation, Abdominal hernia, Ileus Disposition: ADMITTED IP TO THIS [facility] Condition: Fair Is patient prescribed a controlled substance at d/c from ED?: No Referrals: None,Stated [REFERRING] - 1-2 days
[2019-10-12 20:45] LABS: Amorphous Sediment,Urine Rare /hpf; Bacteria,Urine Rare /hpf; Basophils % (A) 0 %; Color,Urine Amber; Eosinophils % (A) 0 %; HGB 11.1 gm/dL (13.0-17.5); Hyaline Casts,Urine 16 /lpf (0-2); Hypochromasia Moderate; Lymphocytes # (A) 0.9 k/uL (1.0-4.8); Lymphocytes % (A) 9 %; MCH 24.1 pg (25.0-35.0); MCV 77.7 fL (80.0-100.0); Mean Platelet Volume 6.6; Monocytes # (A) 0.7 k/uL (0-1.0); Monocytes % (A) 7 %; Mucus,Urine Few /hpf; Neutrophils # (A) 8.1 k/uL (1.3-7.7); Neutrophils % (A) 81 %; Platelet Count 565 k/uL (150-450); RBC 4.63 m/uL (4.30-5.90); RBC,Urine 1 /hpf (0-5); RDW 14.9 % (11.5-15.5); Squamous Epithelial Cell,Urine 1 /hpf (0-4); WBC,Urine 2 /hpf (0-5)
[2019-10-12 20:46] LABS: Appearance,Urine Slightly Cloudy (Clear); Bilirubin,Urine 1+ (Negative); Blood,Urine Negative (Negative); Glucose,Urine (UA) Negative (Negative); Ketones,Urine Negative (Negative); Protein,Urine 1+ (Negative)
[2019-10-12 20:47] LABS: Leukocyte Esterase,Urine Negative (Negative); Nitrite,Urine Negative (Negative)
[2019-10-12 20:52] LABS: INR 1.1 (<1.2); Partial Thromboplastin Time 25.7 sec (22.0-30.0); Prothrombin Time 11.1 sec (9.0-12.0)
[2019-10-12 20:53] LABS: Albumin 4.4 g/dL (3.5-5.0); Calcium 9.9 mg/dL (8.4-10.2); Potassium 4.2 mmol/L (3.5-5.1); Total Bilirubin 0.7 mg/dL (0.2-1.3); Total Protein 8.5 g/dL (6.3-8.2)
[2019-10-12] MEDS ORDERED: HYDROmorphone 1 MG/ML 1 ML SYRINGE IVP STA (21:45)
--- NOTE | 2019-10-12 21:45 | XR ---
EXAMINATION TYPE: XR abdomen acute w cxr DATE OF EXAM: 10/12/2019 COMPARISON: NONE HISTORY: Pain TECHNIQUE: 7 views FINDINGS: There is no heart failure nor confluent pneumonic infiltrate. There are some gas-filled dis tended loops of large bowel in the abdomen. I see no sign of free air. There are no pathologic calcif ications over the kidneys. There is a tubular device over the mid pelvis that should be correlated wi th the surgical history. This could be a stent. There is distended loop of small bowel in the mid abd omen. IMPRESSION: Large and small bowel ileus. No free air. No acute lung disease.
[2019-10-12] MEDS ORDERED: ONDANSETRON 4 MG/2 ML VIAL IVP PRN (21:55)
[2019-10-12] MEDS: SODIUM CHLORIDE 0.9% 1,000 ML IV STA (22:36)
[2019-10-12] MEDS: HYDROmorphone 1 MG/ML 1 ML SYRINGE IVP PRN (23:19)
[2019-10-13] MEDS: HYDROmorphone 1 MG/ML 1 ML SYRINGE IVP PRN ×7 (02:27→23:05)
[2019-10-13] MEDS: PANTOPRAZOLE 40 MG/10 ML VIAL IVP SCH (07:42)
[2019-10-13] MEDS: FAMOTIDINE 20 MG/2 ML VIAL IV SCH ×2 (09:10→21:00)
[2019-10-13] MEDS: IOPAMIDOL CONTRAST (ORAL USE) VIAL PO PRN ×2 (09:45→10:46)
--- NOTE | 2019-10-13 09:50 | P.GSHP ---
History of Present Illness H&P Date: 10/13/19 Chief Complaint: Abdominal pain 58-year-old male was known to our service. Patient has a history of rectal cancer. Underwent robotic low anterior resection. He had an ileostomy for protection of the anastomosis. At some point a stent was placed at the level of the patient's colorectal anastomosis. Apparently attempts at removing the stent have been unsuccessful. Patient has had complaints over the last several months of fecal incontinence with frequent frequent uncontrolled loose stools. Some vague abdominal pain. Increased pain at the site of a right sided abdominal wall hernia from ileostomy reversal. He was scheduled today to come in for repair incarcerated incisional hernia. Instead he came in yesterday with complaints of inability to tolerate food for the last 4 days. Frequent episodes of nausea and vomiting. Still having some intermittent loose stools. Feels more bloated. Abdominal x-rays show distended small bowel and colon. Stent visible. During our office evaluation the patient stated he was not willing to proceed with proctectomy with end ostomy. At this time the patient states he may be open to that option if an obstruction is taking place at the level of the stent. - Review of Systems Comment: The patient denies any acute changes in vision or hearing, no dysphagia or odynophagia, no chest pain or shortness of breath, no dysuria or hematuria, no headache, no runny nose, no rectal bleeding or melena, no unexplained weight loss Past Medical History Past Medical History: Cancer, Hyperlipidemia Additional Past Medical History / Comment(s): rectal, back pain, rectal/colon cancer History of Any Multi-Drug Resistant Organisms: None Reported Past Surgical History: Appendectomy, Orthopedic Surgery Additional Past Surgical History / Comment(s): ileostomy with reversal, left elbow Past Anesthesia/Blood Transfusion Reactions: No Reported Reaction Past Psychological History: No Psychological Hx Reported Smoking Status: Never smoker Past Alcohol Use History: Rare Past Drug Use History: None Reported - Past Family History Mother Family Medical History: Cancer, Diabetes Mellitus Additional Family Medical History / Comment(s): from liver cancer Father Family Medical History: Myocardial Infarction ([place]) Medications and Allergies Home Medications Medication Instructions Recorded Confirmed Type Loperamide HCl [Imodium A-D] 4 mg PO Q4H PRN 11/03/18 10/13/19 History Diphenox-Atrop 2.5-0.025 mg 1 tab PO TID PRN 05/21/19 10/13/19 History [Lomotil] Hydrocodone/Acetaminophen [[place] 2 tab PO Q6HR PRN 05/21/19 10/13/19 History 10-325] Triamterene/Hydrochlorothiazid 1 tab PO DAILY 10/08/19 10/13/19 History [Triamterene-Hctz 37.5-25 mg Tb] Allergies Allergy/AdvReac Type Severity Reaction Status Date / Time No Known Allergies Allergy Verified 10/13/19 08:35 Surgical - Exam Vital Signs Temp Pulse Resp BP Pulse Ox 97.9 F 127 H 20 155/83 97 10/12/19 19:45 10/12/19 19:45 10/12/19 19:45 10/12/19 19:45 10/12/19 19:45 Physical exam: General: Well-developed, well-nourished HEENT: Normocephalic, sclerae nonicteric Abdomen: Mildly distended, mild diffuse tenderness increase in the right side where his hernia is present, this is mostly reducible Extremities: No edema Neuro: Alert and oriented Results - Labs 10/12/19 20:23 10/12/19 20:23 Abnormal Lab Results - Last 24 Hours (Table) 10/12/19 10/12/19 10/12/19 Range/Units 20:23 20:23 20:23 Hgb 11.1 L (13.0-17.5) gm/dL Hct 36.0 L (39.0-53.0) % MCV 77.7 L (80.0-100.0) fL MCH 24.1 L (25.0-35.0) pg Plt Count 565 H (150-450) k/uL Neutrophils # 8.1 H (1.3-7.7) k/uL Lymphocytes # 0.9 L (1.0-4.8) k/uL Sodium 135 L (137-145) mmol/L Chloride 97 L (98-107) mmol/L BUN 21 H (9-20) mg/dL Creatinine 1.42 H (0.66-1.25) mg/dL Glucose 146 H (74-99) mg/dL Creatine Kinase 36 L (55-170) U/L Total Protein 8.5 H (6.3-8.2) g/dL Urine Bilirubin 1+ H (Negative) Amorphous Sediment Rare H (None) /hpf Urine Bacteria Rare H (None) /hpf Hyaline Casts 16 H (0-2) /lpf Urine Mucus Few H (None) /hpf Diabetes panel 10/12/19 Range/Units 20:23 Sodium 135 L (137-145) mmol/L Potassium 4.2 (3.5-5.1) mmol/L Chloride 97 L (98-107) mmol/L Carbon Dioxide 24 (22-30) mmol/L BUN 21 H (9-20) mg/dL Creatinine 1.42 H (0.66-1.25) mg/dL Glucose 146 H (74-99) mg/dL Calcium 9.9 (8.4-10.2) mg/dL AST 18 (17-59) U/L ALT 10 (4-49) U/L Alkaline Phosphatase 97 (38-126) U/L Total Protein 8.5 H (6.3-8.2) g/dL Albumin 4.4 (3.5-5.0) g/dL Calcium panel 10/12/19 Range/Units 20:23 Calcium 9.9 (8.4-10.2) mg/dL Albumin 4.4 (3.5-5.0) g/dL Pituitary panel 10/12/19 Range/Units 20:23 Sodium 135 L (137-145) mmol/L Potassium 4.2 (3.5-5.1) mmol/L Chloride 97 L (98-107) mmol/L Carbon Dioxide 24 (22-30) mmol/L BUN 21 H (9-20) mg/dL Creatinine 1.42 H (0.66-1.25) mg/dL Glucose 146 H (74-99) mg/dL Calcium 9.9 (8.4-10.2) mg/dL Adrenal panel 10/12/19 Range/Units 20:23 Sodium 135 L (137-145) mmol/L Potassium 4.2 (3.5-5.1) mmol/L Chloride 97 L (98-107) mmol/L Carbon Dioxide 24 (22-30) mmol/L BUN 21 H (9-20) mg/dL Creatinine 1.42 H (0.66-1.25) mg/dL Glucose 146 H (74-99) mg/dL Calcium 9.9 (8.4-10.2) mg/dL Total Bilirubin 0.7 (0.2-1.3) mg/dL AST 18 (17-59) U/L ALT 10 (4-49) U/L Alkaline Phosphatase 97 (38-126) U/L Total Protein 8.5 H (6.3-8.2) g/dL Albumin 4.4 (3.5-5.0) g/dL Assessment and Plan (1) Abdominal pain Narrative/Plan: 58-year-old male with history of rectal cancer. Rule out distal colonic obstruction at the site of the stent. We will have to postpone incisional hernia repair at this time given his presentation and admission for intractable nausea vomiting. CT abdomen and pelvis with oral IV and rectal contrast ordered. We'll consult the hospitalist as well. GI and DVT prophylaxis. IV analgesics ordered. Current Visit: Yes Status: Acute Code(s): R10.9 - UNSPECIFIED ABDOMINAL PAIN SNOMED Code(s): 83183499
[2019-10-13] MEDS: SODIUM CHLORIDE 0.9% 1,000 ML IV STA (10:44)
[2019-10-13] MEDS: KETOROLAC 30 MG/ML 1 ML VIAL IVP SCH ×3 (12:16→23:03)
--- NOTE | 2019-10-13 14:06 | CT ---
EXAMINATION TYPE: CT abdomen pelvis w con DATE OF EXAM: 10/13/2019 COMPARISON: 05/21/2019 HISTORY: Pt has history of rectal cancer with rectal stent placed. Abdominal pain. CT DLP: 2940.6 mGycm CONTRAST: CT scan of the abdomen and pelvis is performed with Oral Contrast and with IV Contrast, patient injec elkin with 100 mL of Isovue 300. FINDINGS: LUNG BASES-: No visible nodule. No infiltrate. LIVER/GB: No calcified gallstones. No space occupying hepatic lesion. Biliary tree is of normal ca liber. PANCREAS: No inflammation. No distinct mass. SPLEEN: No splenic enlargement. No lesion seen. ADRENALS: No nodule. No thickening. KIDNEYS/BLADDER: No hydronephrosis. No nephrolithiasis. Simple cyst right kidney. Urinary bladder g rossly unremarkable. BOWEL: Large anterior abdominal wall hernia to the right of midline containing several loops of small and large bowel. No evidence for obstruction. Rectal stent noted in place. Contrast is noted within the lumen of the stent. Obstruction distal to the stent is difficult to exclude. Clinical correlation is advised. No evidence for dilated bowel. Presacral soft tissue thickening. Normal bowel caliber. No inflammation. GENITAL ORGANS: No gross abnormality. LYMPH NODES: No greater than 1cm abdominal or pelvic lymph nodes are appreciated. AORTA: No significant abnormality. OSSEOUS STRUCTURES: No significant abnormality is seen. OTHER: No significant additional abnormality is seen. IMPRESSION: 1. . Rectal stent noted in place. Contrast is noted within the lumen of the stent. Obstruction distal to the stent is difficult to exclude. Clinical correlation is advised. No evidence for dilated bowel . Presacral soft tissue thickening.
[2019-10-13] MEDS: HEPARIN SODIUM,PORCINE 5,000 UNIT/ML 1 ML VIAL SQ SCH ×2 (16:28→23:04)
[2019-10-13] MEDS: SODIUM CHLORIDE 0.9% 1,000 ML IV SCH ×2 (16:29→23:14)
--- NOTE | 2019-10-13 16:41 | XR ---
EXAMINATION TYPE: XR chest 1V portable DATE OF EXAM: 10/13/2019 COMPARISON: Yesterday HISTORY: Heart failure TECHNIQUE: FINDINGS: Heart and mediastinum are normal. Lungs are clear. Diaphragm is normal. There is no heart f ailure. There is interposition of the hepatic flexure of the colon. There are no hilar masses. Bony t horax is intact. IMPRESSION: No active cardiopulmonary disease. No change.
[2019-10-13] MEDS ORDERED: PEG 3350-NA SULF,BICARB,CL/KCL 4,000 ML BOTTLE PO ONE (17:47)
--- NOTE | 2019-10-14 01:11 | CONS ---
CONSULTATION DATE OF SERVICE: 10/13/2019 REASON FOR CONSULTATION: Advice regarding hyperlipidemia with other multiple medical issues requested by Dr. Lawson. HISTORY OF PRESENT ILLNESS: This 58-year-old gentleman with past medical history of hyperlipidemia, history of rectal colon cancer, history of appendectomy, history of DJD being followed by Dr. El Sheppard in the outpatient setting previously and Dr. Verdugo currently, was admitted to [facility] with complaints of abdominal pain and also some diarrhea. The patient also had history of colon cancer. The patient also has some persistent nausea also. The patient was the patient was seen by Dr. Lawson. The patient also had an ileostomy and subsequently the patient also underwent stenting of the anastomotic site. The patient has some fecal incontinence and diarrhea also. The patient also had vague abdominal pain. CT scan of the abdomen and pelvis was done today by Dr. Lawson also which showed rectal stent noted in place and contrast noted within the lumen of the stent. Obstruction distal to the stent is difficult to exclude. The patient being closely monitored at this time. There is no history of fever, rigors. No headache, loss of consciousness, seizures at this time. PAST MEDICAL HISTORY: Of colon cancer, stenting as mentioned earlier, surgery, hyperlipidemia, history of back pain, history of appendectomy, history of degenerative joint disease. MEDICATIONS ARE: Home medications are: 1. Imodium p.r.n. 2. Triamterene hydrochlorothiazide 37.5/25 p.o. daily. 3. Diphenoxylate 2.5 t.i.d. p.r.n. 4. Hydrocodone 2 tablets q.6h p.r.n. ALLERGIES: None. FAMILY HISTORY: History of diabetes, history of liver cancer. SOCIAL HISTORY: No history of smoking. No history of alcohol intake. REVIEW OF SYSTEMS: ENT: No diminished nutrition cardiovascular no angina respiration GI mentioned earlier. GI: As mentioned nervous System numbness weakness allergy anastomosis: As mentioned hematology: As mentioned earlier. Endocrine history of diabetes hypothyroidism. CONSTITUTIONAL: As mentioned earlier. DERMATOLOGY: Negative. RHEUMATOLOGY negative. PSYCHIATRY as mentioned earlier. PHYSICAL EXAMINATION: Alert and oriented times two. Pulse is 75, blood pressure 130/70, respirations 16, temperature 97.9, pulse ox 98% on room air. Conjunctivae normal. Oral mucosa moist. Neck is no jugular venous distention. No carotid bruit. No lymph node enlargement. Cardiovascular system: No stenosis pressure in the bases. No rhonchi. No crackles. ABDOMEN: Soft, obese mild diffuse tenderness present. No guarding. No rigidity. No mass palpable. Bowel sounds diminished no ascites legs no edema no swelling. NERVOUS SYSTEM: Higher functions as mentioned earlier. Moves all 4 limbs no focal motor or sensory deficits. SKIN: No ulcer, no rashes joints no active arthropathy labs at this time shows this abdomen from the 7. ABDOMEN: Obese neck is tender. LABS: WBC 10, hemoglobin 11.1, MCV 77.7, sodium 130, potassium 4.2 creatinine is 1.42. The baseline creatinine was normal assessment. 1. Abdominal distention and pain, rule out subacute colonic obstruction. 2. History of colon cancer surgery and colonic stent/rectal stent. 3. Increased creatinine with acute renal failure with acute prerenal acute tubular necrosis. 4. Hyponatremia. 5. Anemia, microcytic. 6. Increased platelets. 7. Hyperlipidemia. 8. History of degenerative joint disease. 9. Obesity with body mass index 44.3. RECOMMENDATIONS AND DISCUSSION: This 58-year-old gentleman who presented with multiple complex medical issues, we will monitor the patient closely, continue the current management and DVT prophylaxis. Incentive spirometry. Otherwise, the acute abdominal series and CT scan are reviewed. Closely follow with Dr. Lawson. The ileus versus obstruction is being also considered. Please also had the final diagnosis #1 possible ileus thank otherwise we will continue to monitor. Chest x-ray has been ordered. There is no evidence of any infection currently, but however we will continue to monitor. IV fluids. Repeat labs in the morning. We will follow the patient closely with Dr. Lawson and thank you for letting us taking care of this patient. We will continue to monitor. Dr. Lawson is going to evaluate the CT scan of the abdomen is in of the office. MMODL / IJN: [id number] /
[2019-10-14] MEDS: HYDROmorphone 1 MG/ML 1 ML SYRINGE IVP PRN ×6 (02:05→19:28)
[2019-10-14] MEDS: KETOROLAC 30 MG/ML 1 ML VIAL IVP SCH ×3 (05:26→18:03)
[2019-10-14] MEDS: PANTOPRAZOLE 40 MG/10 ML VIAL IVP SCH (08:46)
[2019-10-14] MEDS: FAMOTIDINE 20 MG/2 ML VIAL IV SCH (08:46)
[2019-10-14 09:15] LABS: Basophils % (A) 0 %; Eosinophils # (A) 0.1 k/uL (0-0.7); Eosinophils % (A) 2 %; HCT 29.6 % (39.0-53.0); Hypochromasia Moderate; Lymphocytes % (A) 20 %; MCH 24.7 pg (25.0-35.0); MCHC 31.5 g/dL (31.0-37.0); MCV 78.3 fL (80.0-100.0); Mean Platelet Volume 7.2; Monocytes # (A) 0.6 k/uL (0-1.0); Monocytes % (A) 12 %; Neutrophils # (A) 3.1 k/uL (1.3-7.7); Neutrophils % (A) 63 %; Platelet Count 256 k/uL (150-450); RBC 3.78 m/uL (4.30-5.90); RDW 15.2 % (11.5-15.5); WBC 4.9 k/uL (3.8-10.6)
[2019-10-14 09:18] LABS: HGB 9.3 gm/dL (13.0-17.5)
[2019-10-14 10:09] LABS: ALT 8 U/L (4-49); AST 21 U/L (17-59); African American GFR (CKD) >90 (>60 ml/min/1.73 sqM); Albumin 3.6 g/dL (3.5-5.0); Alkaline Phosphatase 64 U/L (38-126); Anion Gap 9 mmol/L; Blood Urea Nitrogen 20 mg/dL (9-20); Calcium 8.9 mg/dL (8.4-10.2); Carbon Dioxide 22 mmol/L (22-30); Chloride 104 mmol/L (98-107); Glucose 85 mg/dL (74-99); Non-African American GFR(CKD) 80 (>60 ml/min/1.73 sqM); Potassium 3.6 mmol/L (3.5-5.1); Sodium 135 mmol/L (137-145); Total Bilirubin 0.5 mg/dL (0.2-1.3)
[2019-10-14] MEDS: HEPARIN SODIUM,PORCINE 5,000 UNIT/ML 1 ML VIAL SQ SCH ×2 (11:43→18:03)
[2019-10-14] MEDS: SODIUM CHLORIDE 0.9% 1,000 ML IV SCH (11:44)
[2019-10-14 12:15] LABS: Polychromasia Present
[2019-10-14 14:52] VITALS: RESP 16
[2019-10-14] MEDS ORDERED: PROPOFOL 10 MG/ML 20 ML VIAL IV ONE (14:56)
[2019-10-14] MEDS ORDERED: IV FLUID CONTINUATION 200 ML IV ONE (14:56)
--- NOTE | 2019-10-14 16:45 | P.PCN ---
Date of Procedure: 10/14/19 Procedure(s) Performed: PREOPERATIVE DIAGNOSIS: History of rectal cancer, change in bowel habits, colonic obstruction POSTOPERATIVE DIAGNOSIS: Stricture at colorectal anastomosis site PROCEDURE: Flexible proctoscopy with biopsy ANESTHESIA: MAC SURGEON: Dru Lawson M.D. SPECIMENS: Rectal stricture ENDOSCOPIC PROCEDURE: The patient was placed on the endoscopy table in the left decubitus position. The Olympus pediatric colonoscope was inserted into the anus and passed under direct visualization distal rectum where we immediately identified a colonic stent in place. The stent was actually causing occlusion of the lumen with angulation. I was able to direct the scope around the edge of that stent but as I passed the scope more proximally there was evidence of tissue ingrowth. Biopsies were taken of the tissue growing into the stent itself. This was creating a stricture and partial colonic obstruction. The stent itself at this point appears to be contributing to the obstruction. We were unable to advance the scope more proximally unfortunately. The stent was palpated with the digital exam at approximately 2-3 cm from the anal verge. The patient was taken to the recovery room in stable condition per anesthesia guidelines. RECOMMENDATIONS: At the completion of the procedure the findings were discussed in detail with the patient. I spoke to his colorectal surgeon at [facility] as well. At this point we have decided to work on transfer to their institution for definitive surgical care. Disposition: observation
--- NOTE | 2019-10-14 16:46 | P.DS ---
Providers Date of admission: 10/12/19 21:54 Expected date of discharge: 10/14/19 Attending physician: Dru Lawson Consults: 10/13/19 08:53 Consult Physician Routine Consulting Provider: Antonina Rodriguez Consult Reason/Comments: Medical management Do you want consulting provider notified?: Yes Primary care physician: Physician Nonstaff - Discharge Diagnosis(es) (1) Abdominal pain Patient admitted with intractable nausea and vomiting. Workup suggested possible distal colonic obstruction. CAT scan was performed showing contrast extending down to the rectum. There was slight luminal narrowing at the region of the splenic flexure. Patient has a history of rectal cancer and underwent previous laparoscopic [place] assisted low anterior resection. Following that a colonic stent was utilized. Patient has had progressive bowel incontinence and abdominal discomforts. Today endoscopy was performed which revealed a stricture at the anastomotic site with ingrowth into the luminal stent. Patient was thankful able to tolerate a good portion of his bowel prep however and was having liquid stools. Spoke with Dr. Cast at [facility]. Arrangements are being made for transfer to their institution for definitive surgical care given the complexity of this case. Patient is agreeable at this time. Current Visit: Yes Status: Acute Patient Condition at Discharge: Fair Plan - Discharge Summary Discharge Rx Participant: No New Discharge Prescriptions: No Action Loperamide HCl [Imodium A-D] 4 mg PO Q4H PRN PRN Reason: Loose Stool Hydrocodone/Acetaminophen [[place] 10-325] 2 tab PO Q6HR PRN PRN Reason: Pain Diphenox-Atrop 2.5-0.025 mg [Lomotil] 1 tab PO TID PRN PRN Reason: Diarrhea Triamterene/Hydrochlorothiazid [Triamterene-Hctz 37.5-25 mg Tb] 1 tab PO DAILY Discharge Medication List Loperamide HCl [Imodium A-D] 4 mg PO Q4H PRN 11/03/18 [History] Diphenox-Atrop 2.5-0.025 mg [Lomotil] 1 tab PO TID PRN 05/21/19 [History] Hydrocodone/Acetaminophen [[place] 10-325] 2 tab PO Q6HR PRN 05/21/19 [History] Triamterene/Hydrochlorothiazid [Triamterene-Hctz 37.5-25 mg Tb] 1 tab PO DAILY 10/08/19 [History] Follow up Appointment(s)/Referral(s): Dru Lawson MD [Medical Doctor] - 10/22/19 2:10 pm None,Stated [REFERRING] - 1-2 days
[2019-10-14 18:04] VITALS: BP 149/85; PULSE 78; TEMP 98.1
--- NOTE | 2019-10-15 03:31 | PN ---
PROGRESS NOTE DATE OF SERVICE: 10/14/2019 This is a 58-year-old gentleman who was admitted with abdominal distention and pain, suspected subacute colonic obstruction. The patient underwent a flexible proctoscopy with biopsy by Dr. Lawson and stricture with colorectal anastomosis noted. The patient is feeling much better. No chest pain. No palpitations. No fever. EXAM: Alert and oriented x3. Pulse 73, blood pressure 114/80, respiration 20, temperature normal, pulse ox 98% on room air. HEENT: Conjunctivae normal. Oral mucosa moist. NECK: No jugular venous distention. No lymph node enlargement. CARDIOVASCULAR: S1, S2. RESPIRATORY: Diminished breath sounds at the bases. A few scattered rhonchi. ABDOMEN: Soft. Mild diffuse discomfort. No mass palpable. LEGS: No edema, no swelling. NERVOUS SYSTEM: No focal deficits. LABS: WBC 4.2, hemoglobin 9.3, sodium is 135. ASSESSMENT: 1. Abdominal distention, pain, possibly subacute colonic obstruction secondary to stricture with colorectal anastomosis status post flexible proctoscopy and biopsy by Dr. Lawson. 2. History of colon cancer surgery and colonic stent or rectal stent. 3. Increased creatinine with acute renal failure with acute prerenal acute tubular necrosis with dehydration, present on admission, improved. 4. Hyponatremia. 5. Anemia, microcytic. 6. Increased platelets. 7. Hyperlipidemia. 8. History of degenerative joint disease. 9. Obesity with body mass index of 44.3. RECOMMENDATIONS AND DISCUSSION: Recommend to continue current medications, continue to monitor, symptomatic treatment. Otherwise, at this time I would recommend resume home medications. Closely follow with primary physician in the outpatient setting. The rest of the recommendations per surgery. Further recommendations to follow. MMODL / IJN: [id number] /
== END 2019-10-14 19:44 | disposition short-term general hospital (02) | DRG 388 ==
LOC: EC 19:43 → 6NMEDSUR 21:54
PROVIDERS: ADMIT Surgery; ATTEND Surgery
PROC: 0DBP8ZX Excision of Rectum, Via Natural or Artificial Opening Endoscopic, Diagnostic (ICD-10-PCS; principal; 2019-10-14 08:05)
DX: K56.690 Other partial intestinal obstruction (principal); N17.0 Acute kidney failure with tubular necrosis; Z68.41 Body mass index [BMI] 40.0-44.9, adult; E87.1 Hypo-osmolality and hyponatremia; Y83.2 Surgical operation with anastomosis, bypass or graft as the cause of abnormal reaction of the patient, or of later complication, without mention of misadventure at the time of the procedure; Y73.3 Surgical instruments, materials and gastroenterology and urology devices (including sutures) associated with adverse incidents; E66.01 Morbid (severe) obesity due to excess calories; E78.5 Hyperlipidemia, unspecified; D50.9 Iron deficiency anemia, unspecified; E86.0 Dehydration; K43.2 Incisional hernia without obstruction or gangrene; Z80.0 Family history of malignant neoplasm of digestive organs; Z82.49 Family history of ischemic heart disease and other diseases of the circulatory system; Z83.3 Family history of diabetes mellitus; Z85.048 Personal history of other malignant neoplasm of rectum, rectosigmoid junction, and anus; Z90.49 Acquired absence of other specified parts of digestive tract; M19.90 Unspecified osteoarthritis, unspecified site; Z79.899 Other long term (current) drug therapy
CPT/HCPCS: 36415; 45300; 71045; 74022; 74177; 80053; 81001; 82150; 82378; 82550; 83605; 83690; 85025; 85610; 85730; 87324; 88305; 96361; 96374; 96375; 99285

== ENCOUNTER 2019-11-17 13:40 | Emergency (ER) | payer OTHER ==
[2019-11-17 13:55] VITALS: TEMP 99
[2019-11-17] MEDS ORDERED: ONDANSETRON 4 MG/2 ML VIAL IVP STA (13:56)
[2019-11-17] MEDS ORDERED: HYDROmorphone 0.5 MG/0.5 ML SYRINGE IVP STA (13:56)
[2019-11-17] MEDS ORDERED: SODIUM CHLORIDE 0.9% 1,000 ML IV STA (13:56)
--- NOTE | 2019-11-17 14:24 | ED ---
Abdominal Pain HPI - General Chief Complaint: Abdominal Pain Stated Complaint: Abdominal pain Time Seen by Provider: 11/17/19 13:48 Source: patient, RN notes reviewed Mode of arrival: ambulatory Limitations: no limitations - History of Present Illness Initial Comments: This a 59-year-old male presents emergency department via EMS chief complaint of abdominal pain. Patient states this started on Sunday after he tripped getting out of his recliner and falling onto a table. Patient went to right lower sided abdominal pain. Patient does admit that he had surgery 5 weeks ago at [facility] by Dr. Ramirez. Patient states that he follows up with Dr. ramirez for postsurgical follow-up. Patient states that he cannot tolerate the pain. He's had little to no output today and his colostomy bag. Patient reports no fevers chills he still slight nausea no dysuria no hematuria denies any chest pain or shortness breath. - Related Data Home Medications Medication Instructions Recorded Confirmed Loperamide HCl [Imodium A-D] 4 mg PO Q4H PRN 11/03/18 10/13/19 Diphenox-Atrop 2.5-0.025 mg 1 tab PO TID PRN 05/21/19 10/13/19 [Lomotil] Hydrocodone/Acetaminophen [[place] 2 tab PO Q6HR PRN 05/21/19 10/13/19 10-325] Triamterene/Hydrochlorothiazid 1 tab PO DAILY 10/08/19 10/13/19 [Triamterene-Hctz 37.5-25 mg Tb] Previous Rx's Medication Instructions Recorded HYDROcodone/APAP 10-325MG [[place] 1 tab PO Q6HR PRN 3 Days #12 tab 11/17/19 10-325] Allergies Allergy/AdvReac Type Severity Reaction Status Date / Time No Known Allergies Allergy Verified 11/17/19 13:55 Review of Systems ROS Statement: Those systems with pertinent positive or pertinent negative responses have been documented in the HPI. ROS Other: All systems not noted in ROS Statement are negative. Past Medical History Past Medical History: Cancer, Hyperlipidemia Additional Past Medical History / Comment(s): rectal, back pain, rectal/colon cancer History of Any Multi-Drug Resistant Organisms: None Reported Past Surgical History: Appendectomy, Orthopedic Surgery Additional Past Surgical History / Comment(s): ileostomy with reversal, left elbow Past Anesthesia/Blood Transfusion Reactions: No Reported Reaction Past Psychological History: No Psychological Hx Reported Smoking Status: Never smoker Past Alcohol Use History: Rare Past Drug Use History: None Reported - Past Family History Mother Family Medical History: Cancer, Diabetes Mellitus Additional Family Medical History / Comment(s): from liver cancer Father Family Medical History: Myocardial Infarction ([place]) General Exam Limitations: no limitations General appearance: alert, in no apparent distress Head exam: Present: atraumatic, normocephalic, normal inspection Eye exam: Present: normal appearance, PERRL, EOMI. Absent: scleral icterus, conjunctival injection, periorbital swelling ENT exam: Present: normal exam, normal oropharynx, mucous membranes moist Respiratory exam: Present: normal lung sounds bilaterally. Absent: respiratory distress, wheezes, rales, rhonchi, stridor Cardiovascular Exam: Present: regular rate, normal rhythm, normal heart sounds. Absent: systolic murmur, diastolic murmur, rubs, gallop, clicks GI/Abdominal exam: Present: soft, tenderness (Moderate tenderness primarily the right side of the abdomen and though he does have mild diffuse there is well- healed midabdominal incision, colostomy on the left), normal bowel sounds. Absent: distended, guarding, rebound, rigid Back exam: Absent: CVA tenderness (R), CVA tenderness (L) Neurological exam: Present: alert, oriented X3 Skin exam: Present: warm, dry, intact, normal color. Absent: rash Course Vital Signs 11/17/19 11/17/19 11/17/19 13:47 13:51 14:00 Temperature 99.0 F Pulse Rate 95 86 Respiratory 20 16 Rate Blood Pressure 135/78 122/89 O2 Sat by Pulse 98 98 98 Oximetry 11/17/19 15:00 Temperature Pulse Rate 86 Respiratory 19 Rate Blood Pressure 127/88 O2 Sat by Pulse 97 Oximetry Medical Decision Making - Medical Decision Making 59-year-old male presents emergency department for fall, abdominal pain. Tremaine hoskins's CT was reviewed and reviewed by Dr. Lawson who feel there is no acute changes. Patient lab work is essentially unremarkable and at that his baseline. Patient's pain will be treated from his abdominal contusion from the fall. Patient is advised follow-up with his surgeon, primary care physician and return for any worsening symptoms. - Lab Data Result diagrams: 11/17/19 14:56 11/17/19 14:56 Lab Results 11/17/19 11/17/19 Range/Units 14:56 14:56 WBC 9.4 (3.8-10.6) k/uL RBC 4.04 L (4.30-5.90) m/uL Hgb 9.5 L (13.0-17.5) gm/dL Hct 31.4 L (39.0-53.0) % MCV 77.7 L (80.0-100.0) fL MCH 23.5 L (25.0-35.0) pg MCHC 30.2 L (31.0-37.0) g/dL RDW 15.0 (11.5-15.5) % Plt Count 413 (150-450) k/uL Neutrophils % 83 % Lymphocytes % 7 % Monocytes % 7 % Eosinophils % 0 % Basophils % 0 % Neutrophils # 7.9 H (1.3-7.7) k/uL Lymphocytes # 0.7 L (1.0-4.8) k/uL Monocytes # 0.7 (0-1.0) k/uL Eosinophils # 0.0 (0-0.7) k/uL Basophils # 0.0 (0-0.2) k/uL Hypochromasia Marked Poikilocytosis Slight Sodium 139 (137-145) mmol/L Potassium 3.7 (3.5-5.1) mmol/L Chloride 98 (98-107) mmol/L Carbon Dioxide 31 H (22-30) mmol/L Anion Gap 10 mmol/L BUN 27 H (9-20) mg/dL Creatinine 1.03 (0.66-1.25) mg/dL Est GFR (CKD-EPI)AfAm >90 (>60 ml/min/1.73 sqM) Est GFR (CKD-EPI)NonAf 81 (>60 ml/min/1.73 sqM) Glucose 140 H (74-99) mg/dL Calcium 9.6 (8.4-10.2) mg/dL Total Bilirubin 0.5 (0.2-1.3) mg/dL AST 20 (17-59) U/L ALT 12 (4-49) U/L Alkaline Phosphatase 68 (38-126) U/L Total Protein 7.8 (6.3-8.2) g/dL Albumin 4.4 (3.5-5.0) g/dL Lipase 26 (23-300) U/L Disposition Clinical Impression: Abdominal pain, Abdominal contusion Disposition: HOME SELF-CARE Condition: Stable Instructions (If sedation given, give patient instructions): Abdominal Pain (ED) Additional Instructions: Please return to the Emergency Department if symptoms worsen or any other concerns. Prescriptions: HYDROcodone/APAP 10-325MG [[place] 10-325] 1 tab PO Q6HR PRN 3 Days #12 tab PRN Reason: pain Is patient prescribed a controlled substance at d/c from ED?: Yes When asked, does pt state using other controlled substances?: Yes If prescribed controlled substance>3 days was MAPS reviewed?: Prescribed <3 Days If opioid is for acute pain is fill amount 7 days or less?: Yes If Rx opioid, was Start Talking consent form obtained?: Yes Referrals: Nonstaff,Physician [Primary Care Provider] - 1-2 days Time of Disposition: 15:57
--- NOTE | 2019-11-17 15:05 | CT ---
EXAMINATION TYPE: CT abdomen pelvis w con DATE OF EXAM: 11/17/2019 COMPARISON: 10/13/2019 HISTORY: Generalized pain. Post Op colostomy CT DLP: 2256.9 mGycm Automated exposure control for dose reduction was used. TECHNIQUE: Helical acquisition of images was performed from the lung bases through the pelvis. CONTRAST: Performed without Oral Contrast and with IV Contrast, patient injected with 100 mL of Isovue 300. FINDINGS: Lack of oral contrast limits evaluation of the hollow viscera. LUNG BASES: Faint 2 mm right middle lobe pulmonary nodule is unchanged from the prior on series 204 i mage 1. Fat-containing posterior right diaphragmatic hernia is redemonstrated. Minimal amount of prob able retroareolar gynecomastia. LIVER/GB: No focal hepatic lesion is seen. No intrahepatic biliary ductal dilatation. No radiopaque c alculi in the gallbladder on CT. PANCREAS: No significant abnormality is seen. SPLEEN: No splenomegaly. ADRENALS: No new nodule or thickening. KIDNEYS: 1.2 cm right renal cyst is seen in the superior pole. Kidneys enhance symmetrically without hydronephrosis. ADENOPATHY: No greater than 1 cm short axis lymph node in the abdomen or pelvis. OSSEOUS STRUCTURES: Advanced arthropathy of the right femoral acetabular joint with mild on the left . Overall mild multilevel degenerative disc disease of the visualized spine. Vertebral body heights a re similar to the prior. BOWEL: Rectal stent extends into the sigmoid colon. There appears to be extraluminal air in the pres acral space with a small fluid collection measuring approximately 1.9 cm however sacral soft tissue t hickening and edema posterior to this make evaluation difficult. Extraluminal air appears to be exten ding from the stent on coronal image 67. There is air however does appear to be present on the prior examination. Overall there are smaller size of the pocket of air. The sigmoid colon just proximal to the stent is nondistended with surrounding inflammatory fat stranding. Inflammatory fat stranding als o surrounds the distal transverse colon leading to the newly placed left-sided colostomy. Multifocal mesenteric fat stranding such as on image 45 could relate to fat necrosis or postoperative change. La rge right paracentral ventral hernia defect has a wide neck fissuring 8.5 cm. This contains loops of large and small bowel as seen on the prior. Mildly dilated proximal duodenum. Incisional fluid collec tion in the low abdomen on image 69 measures 3.2 x 1.9 cm and likely represents a small seroma. OTHER: Minimal atherosclerosis of the abdominal aorta and its branches. IMPRESSION: 1. EXTRALUMINAL COLLECTION OF AIR AND SOFT TISSUE THICKENING IN THE PRESACRAL SPACE IS SMALLER THAN O N THE PRIOR OF 10/13/2019. CONNECTION IS SEEN THROUGH THE RECTOSIGMOID STENT REPRESENTING A SINUS TRAC T AND LOCULATED PNEUMOPERITONEUM. ABSCESS COULD BE CONSIDERED IN THE APPROPRIATE CLINICAL SETTING. 2. POSTOPERATIVE INCISIONAL FLUID COLLECTION IN THE LOW VENTRAL MIDLINE ABDOMEN LIKELY REPRESENTS A S MALL SEROMA. 3. DILATED DILATED LOOPS OF PROXIMAL SMALL BOWEL, LIKELY ILEUS. NEW LEFT-SIDED COLOSTOMY. SIMILAR LAR GE AND SMALL BOWEL CONTAINING RIGHT PARACENTRAL VENTRAL ABDOMINAL HERNIA. 4. FAINT SUBCENTIMETER RIGHT MIDDLE LOBE PULMONARY NODULE.
[2019-11-17 15:11] LABS: Basophils % (A) 0 %; Eosinophils % (A) 0 %; HCT 31.4 % (39.0-53.0); HGB 9.5 gm/dL (13.0-17.5); Hypochromasia Marked; Lymphocytes # (A) 0.7 k/uL (1.0-4.8); Lymphocytes % (A) 7 %; MCH 23.5 pg (25.0-35.0); MCHC 30.2 g/dL (31.0-37.0); MCV 77.7 fL (80.0-100.0); Mean Platelet Volume 6.1; Monocytes # (A) 0.7 k/uL (0-1.0); Monocytes % (A) 7 %; Neutrophils # (A) 7.9 k/uL (1.3-7.7); Neutrophils % (A) 83 %; Platelet Count 413 k/uL (150-450); Poikilocytosis Slight; RBC 4.04 m/uL (4.30-5.90); WBC 9.4 k/uL (3.8-10.6)
[2019-11-17 15:17] VITALS: BP 127/88
[2019-11-17 15:17] LABS: ALT 12 U/L (4-49); AST 20 U/L (17-59); African American GFR (CKD) >90 (>60 ml/min/1.73 sqM); Albumin 4.4 g/dL (3.5-5.0); Alkaline Phosphatase 68 U/L (38-126); Anion Gap 10 mmol/L; Blood Urea Nitrogen 27 mg/dL (9-20); Calcium 9.6 mg/dL (8.4-10.2); Carbon Dioxide 31 mmol/L (22-30); Chloride 98 mmol/L (98-107); Glucose 140 mg/dL (74-99); Non-African American GFR(CKD) 81 (>60 ml/min/1.73 sqM); Potassium 3.7 mmol/L (3.5-5.1); Sodium 139 mmol/L (137-145); Total Bilirubin 0.5 mg/dL (0.2-1.3); Total Protein 7.8 g/dL (6.3-8.2)
[2019-11-17] MEDS ORDERED: HYDROmorphone 1 MG/ML 1 ML SYRINGE IVP STA (15:56)
[2019-11-17 16:40] VITALS: PULSE 82; RESP 16
== END 2019-11-17 16:37 | disposition home or self-care (01) ==
LOC: EC 13:40
DX: S30.1XXA Contusion of abdominal wall, initial encounter (principal); Z93.3 Colostomy status; Z79.899 Other long term (current) drug therapy; Z85.048 Personal history of other malignant neoplasm of rectum, rectosigmoid junction, and anus; Z90.89 Acquired absence of other organs; W01.0XXA Fall on same level from slipping, tripping and stumbling without subsequent striking against object, initial encounter
CPT/HCPCS: 36415; 80053; 83690; 85025; 74177; 99285; 96374; 96375; 96376; 96361; J2405; J1170 ×2; Q9967

== ENCOUNTER 2019-11-18 09:49 | Inpatient (IN) | payer OTHER ==
[2019-11-18] MEDS ORDERED: HYDROmorphone 1 MG/ML 1 ML SYRINGE IVP STA ×2 (10:26→11:42)
[2019-11-18] MEDS ORDERED: ONDANSETRON 4 MG/2 ML VIAL IVP STA ×2 (10:26→11:42)
[2019-11-18] MEDS ORDERED: SODIUM CHLORIDE 0.9% 1,000 ML IV STA (10:26)
[2019-11-18] MEDS ORDERED: FAMOTIDINE 20 MG/2 ML VIAL IV STA (10:27)
--- NOTE | 2019-11-18 10:30 | ED ---
General Adult HPI - General Chief complaint: Abdominal Pain Stated complaint: Vomiting Time Seen by Provider: 11/18/19 10:12 Source: patient, RN notes reviewed Mode of arrival: wheelchair Limitations: no limitations - History of Present Illness Initial comments: Patient is a pleasant 39-year-old male presenting to the emergency department with nausea vomiting and abdominal discomfort. Onset of symptoms was 3-4 days ago. Patient has vomited over 6 times daily. Patient states limited oral intake. Patient states also limited output from his colostomy bag. Patient does have diffuse abdominal discomfort. Patient did have a history of rectal cancer with removal and ileostomy. Patient did have reversal and then had colostomy. No fevers. - Related Data Home Medications Medication Instructions Recorded Confirmed Loperamide HCl [Imodium A-D] 4 mg PO Q4H PRN 11/03/18 11/18/19 Diphenox-Atrop 2.5-0.025 mg 1 tab PO TID PRN 05/21/19 11/18/19 [Lomotil] Hydrocodone/Acetaminophen [[place] 2 tab PO Q6HR PRN 05/21/19 11/18/19 10-325] Triamterene/Hydrochlorothiazid 1 tab PO DAILY 10/08/19 11/18/19 [Triamterene-Hctz 37.5-25 mg Tb] Docusate Sodium [Dok] 100 mg PO DAILY PRN 11/18/19 11/18/19 Famotidine 20 mg PO BID 11/18/19 11/18/19 Ferrous Gluconate 324 mg PO BID 11/18/19 11/18/19 Gabapentin [Neurontin] 300 mg PO TID 11/18/19 11/18/19 Simethicone Chew [Mylicon Chew] 80 mg PO BID 11/18/19 11/18/19 oxyCODONE-APAP 10-325MG [Percocet 1 tab PO Q6H PRN 11/18/19 11/18/19 10-325 mg] Allergies Allergy/AdvReac Type Severity Reaction Status Date / Time No Known Allergies Allergy Verified 11/18/19 11:30 Review of Systems ROS Statement: Those systems with pertinent positive or pertinent negative responses have been documented in the HPI. ROS Other: All systems not noted in ROS Statement are negative. Constitutional: Denies: fever Eyes: Denies: eye pain ENT: Denies: ear pain Respiratory: Denies: cough Cardiovascular: Denies: chest pain Endocrine: Denies: fatigue Gastrointestinal: Reports: abdominal pain, nausea, vomiting Genitourinary: Denies: dysuria Skin: Denies: rash Neurological: Denies: weakness Past Medical History Past Medical History: Cancer, Hyperlipidemia Additional Past Medical History / Comment(s): rectal, back pain, rectal/colon cancer History of Any Multi-Drug Resistant Organisms: None Reported Past Surgical History: Appendectomy, Orthopedic Surgery Additional Past Surgical History / Comment(s): ileostomy with reversal, left elbow colostomy Past Anesthesia/Blood Transfusion Reactions: No Reported Reaction Past Psychological History: No Psychological Hx Reported Smoking Status: Never smoker Past Alcohol Use History: Rare Past Drug Use History: None Reported - Past Family History Mother Family Medical History: Cancer, Diabetes Mellitus Additional Family Medical History / Comment(s): from liver cancer Father Family Medical History: Myocardial Infarction ([place]) General Exam Limitations: no limitations General appearance: alert, in no apparent distress, obese Head exam: Present: normocephalic Eye exam: Present: normal appearance Neck exam: Present: normal inspection Respiratory exam: Present: normal lung sounds bilaterally Cardiovascular Exam: Present: regular rate, normal rhythm Expanded Peripheral pulses: 2+: Dorsalis Pedis (R), Dorsalis Pedis (L) GI/Abdominal exam: Present: soft, tenderness (Mild to moderate diffuse tender), normal bowel sounds. Absent: distended, guarding, rebound, rigid, pulsatile mass Extremities exam: Present: normal inspection Neurological exam: Present: alert Psychiatric exam: Present: normal affect, normal mood Skin exam: Present: normal color Course Vital Signs 11/18/19 09:55 Temperature 98.0 F Pulse Rate 77 Respiratory 18 Rate Blood Pressure 148/79 O2 Sat by Pulse 97 Oximetry EKG Findings - EKG Comments: EKG Findings:: Normal sinus rhythm 78. MN 144. QRS 94. QT 392. QTC 446. Normal axis. Normal QRS. No acute ST change. Medical Decision Making - Medical Decision Making Patient reevaluated and still complaining of abdominal pain and nausea. Case discussed with Dr. Coyle, who will admit his patient. - Lab Data Result diagrams: 11/18/19 10:23 11/18/19 10:23 Lab Results 03/24/20 03/24/20 03/24/20 Range/Units 10:23 10:23 10:23 WBC 9.0 (3.8-10.6) k/uL RBC 4.07 L (4.30-5.90) m/uL Hgb 9.6 L (13.0-17.5) gm/dL Hct 31.2 L (39.0-53.0) % MCV 76.5 L (80.0-100.0) fL MCH 23.7 L (25.0-35.0) pg MCHC 30.9 L (31.0-37.0) g/dL RDW 15.7 H (11.5-15.5) % Plt Count 372 (150-450) k/uL Neutrophils % 88 % Lymphocytes % 6 % Monocytes % 4 % Eosinophils % 1 % Basophils % 0 % Neutrophils # 7.9 H (1.3-7.7) k/uL Lymphocytes # 0.5 L (1.0-4.8) k/uL Monocytes # 0.4 (0-1.0) k/uL Eosinophils # 0.1 (0-0.7) k/uL Basophils # 0.0 (0-0.2) k/uL Hypochromasia Moderate Poikilocytosis Slight Microcytosis Slight PT 10.8 (9.0-12.0) sec INR 1.0 (<1.2) APTT 23.3 (22.0-30.0) sec Sodium (137-145) mmol/L Potassium (3.5-5.1) mmol/L Chloride (98-107) mmol/L Carbon Dioxide (22-30) mmol/L Anion Gap mmol/L BUN (9-20) mg/dL Creatinine (0.66-1.25) mg/dL Est GFR (CKD-EPI)AfAm (>60 ml/min/1.73 sqM) Est GFR (CKD-EPI)NonAf (>60 ml/min/1.73 sqM) Glucose (74-99) mg/dL Calcium (8.4-10.2) mg/dL Total Bilirubin (0.2-1.3) mg/dL AST (17-59) U/L ALT (4-49) U/L Alkaline Phosphatase (38-126) U/L Total Creatine Kinase (55-170) U/L CK-MB (CK-2) (0.0-2.4) ng/mL CK-MB (CK-2) Rel Index Troponin I (0.000-0.034) ng/mL Total Protein (6.3-8.2) g/dL Albumin (3.5-5.0) g/dL Amylase (30-110) U/L Lipase (23-300) U/L Urine Color Yellow Urine Appearance Clear (Clear) Urine pH 6.0 (5.0-8.0) Ur Specific [place] 1.027 (1.001-1.035) Urine Protein Trace H (Negative) Urine Glucose (UA) Negative (Negative) Urine Ketones Negative (Negative) Urine Blood Negative (Negative) Urine Nitrite Negative (Negative) Urine Bilirubin Negative (Negative) Urine Urobilinogen <2.0 (<2.0) mg/dL Ur Leukocyte Esterase Negative (Negative) 11/18/19 11/18/19 Range/Units 10:23 10:23 WBC (3.8-10.6) k/uL RBC (4.30-5.90) m/uL Hgb (13.0-17.5) gm/dL Hct (39.0-53.0) % MCV (80.0-100.0) fL MCH (25.0-35.0) pg MCHC (31.0-37.0) g/dL RDW (11.5-15.5) % Plt Count (150-450) k/uL Neutrophils % % Lymphocytes % % Monocytes % % Eosinophils % % Basophils % % Neutrophils # (1.3-7.7) k/uL Lymphocytes # (1.0-4.8) k/uL Monocytes # (0-1.0) k/uL Eosinophils # (0-0.7) k/uL Basophils # (0-0.2) k/uL Hypochromasia Poikilocytosis Microcytosis PT (9.0-12.0) sec INR (<1.2) APTT (22.0-30.0) sec Sodium 136 L (137-145) mmol/L Potassium 3.6 (3.5-5.1) mmol/L Chloride 99 (98-107) mmol/L Carbon Dioxide 25 (22-30) mmol/L Anion Gap 12 mmol/L BUN 25 H (9-20) mg/dL Creatinine 0.97 (0.66-1.25) mg/dL Est GFR (CKD-EPI)AfAm >90 (>60 ml/min/1.73 sqM) Est GFR (CKD-EPI)NonAf 87 (>60 ml/min/1.73 sqM) Glucose 150 H (74-99) mg/dL Calcium 9.7 (8.4-10.2) mg/dL Total Bilirubin 0.7 (0.2-1.3) mg/dL AST 25 (17-59) U/L ALT 13 (4-49) U/L Alkaline Phosphatase 71 (38-126) U/L Total Creatine Kinase 42 L (55-170) U/L CK-MB (CK-2) <0.2 (0.0-2.4) ng/mL CK-MB (CK-2) Rel Index Troponin I <0.012 (0.000-0.034) ng/mL Total Protein 7.8 (6.3-8.2) g/dL Albumin 4.4 (3.5-5.0) g/dL Amylase 48 (30-110) U/L Lipase 48 (23-300) U/L Urine Color Urine Appearance (Clear) Urine pH (5.0-8.0) Ur Specific [place] (1.001-1.035) Urine Protein (Negative) Urine Glucose (UA) (Negative) Urine Ketones (Negative) Urine Blood (Negative) Urine Nitrite (Negative) Urine Bilirubin (Negative) Urine Urobilinogen (<2.0) mg/dL Ur Leukocyte Esterase (Negative) Disposition Clinical Impression: Ileus, Abdominal pain, Vomiting Disposition: ADMITTED IP TO THIS HOSP Is patient prescribed a controlled substance at d/c from ED?: No Referrals: Nonstaff,Physician [Primary Care Provider] - 1-2 days Decision Time: 11:59
[2019-11-18 10:47] LABS: Basophils % (A) 0 %; Eosinophils # (A) 0.1 k/uL (0-0.7); Eosinophils % (A) 1 %; HCT 31.2 % (39.0-53.0); HGB 9.6 gm/dL (13.0-17.5); Hypochromasia Moderate; Lymphocytes # (A) 0.5 k/uL (1.0-4.8); Lymphocytes % (A) 6 %; MCH 23.7 pg (25.0-35.0); MCHC 30.9 g/dL (31.0-37.0); MCV 76.5 fL (80.0-100.0); Mean Platelet Volume 6.2; Microcytosis Slight; Monocytes # (A) 0.4 k/uL (0-1.0); Monocytes % (A) 4 %; Neutrophils # (A) 7.9 k/uL (1.3-7.7); Neutrophils % (A) 88 %; Platelet Count 372 k/uL (150-450); Poikilocytosis Slight; RBC 4.07 m/uL (4.30-5.90); RDW 15.7 % (11.5-15.5)
[2019-11-18 10:49] LABS: Appearance,Urine Clear (Clear); Bilirubin,Urine Negative (Negative); Blood,Urine Negative (Negative); Color,Urine Yellow; Glucose,Urine (UA) Negative (Negative); Ketones,Urine Negative (Negative); Leukocyte Esterase,Urine Negative (Negative); Nitrite,Urine Negative (Negative); Protein,Urine Trace (Negative); Specific Gravity,Urine 1.027 (1.001-1.035); Urobilinogen,Urine <2.0 mg/dL (<2.0)
--- NOTE | 2019-11-18 10:53 | XR ---
EXAMINATION TYPE: XR KUB DATE OF EXAM: 11/18/2019 10:44 AM CLINICAL HISTORY: Postop colostomy with generalized pain. TECHNIQUE: Two Upright KUB images of the abdomen are obtained. COMPARISON: CT abdomen and pelvis from yesterday. FINDINGS: Scattered gas is seen in non-distended stomach epigastric region. Gas is seen in nondistend ed small and large bowel loops. Metallic rectal stent in place overlying pelvis. Left mid abdominal o stomy not well-visualized on plain film. Punctate densities left upper to mid abdomen of uncertain et iology. Surgical sutures in the bowel loop right pelvis near iliac crest correspond to the lateral ve ntral wall hernia. Lung bases remain clear. No pneumoperitoneum. IMPRESSION: Overall fairly nonobstructive bowel gas pattern remains present.
[2019-11-18 10:57] LABS: ALT 13 U/L (4-49); AST 25 U/L (17-59); African American GFR (CKD) >90 (>60 ml/min/1.73 sqM); Albumin 4.4 g/dL (3.5-5.0); Alkaline Phosphatase 71 U/L (38-126); Amylase 48 U/L (30-110); Anion Gap 12 mmol/L; Blood Urea Nitrogen 25 mg/dL (9-20); Calcium 9.7 mg/dL (8.4-10.2); Carbon Dioxide 25 mmol/L (22-30); Chloride 99 mmol/L (98-107); Glucose 150 mg/dL (74-99); Non-African American GFR(CKD) 87 (>60 ml/min/1.73 sqM); Potassium 3.6 mmol/L (3.5-5.1); Sodium 136 mmol/L (137-145); Total Bilirubin 0.7 mg/dL (0.2-1.3); Total Protein 7.8 g/dL (6.3-8.2)
[2019-11-18 11:04] LABS: Partial Thromboplastin Time 23.3 sec (22.0-30.0); Prothrombin Time 10.8 sec (9.0-12.0)
[2019-11-18 11:07] LABS: Creatine Kinase 42 U/L (55-170)
[2019-11-18 11:20] LABS: Creatine Kinase MB <0.2 ng/mL (0.0-2.4); Troponin I <0.012 ng/mL (0.000-0.034)
[2019-11-18] MEDS ORDERED: NALOXONE 0.4 MG/ML 1 ML VIAL IV PRN (12:00)
[2019-11-18] MEDS ORDERED: MAGNESIUM HYDROXIDE 2,400 MG/10 ML CUP PO PRN (14:12)
[2019-11-18] MEDS ORDERED: HYDROcodone/APAP 7.5-325MG 1 EACH TAB PO PRN (14:12)
[2019-11-18] MEDS: HYDROmorphone 1 MG/ML 1 ML SYRINGE IVP PRN ×4 (14:12→23:09)
--- NOTE | 2019-11-18 14:18 | P.GSHP ---
History of Present Illness H&P Date: 11/18/19 Chief Complaint: Abdominal pain 59-year-old male known to our service. Was recently hospitalized one month ago with partial colonic obstruction and abdominal pain. Was found to have obstruction near the level of the previous anastomosis in the low pelvis. Was transferred to [facility] and underwent open diverting loop colostomy. Had been doing fairly well. Was seen in the office last week. His juan jose were removed. Apparently yesterday early he fell at home. He says he struck the right side of his abdomen on a table. He was in the ER with abdominal pain. CAT scan was obtained which showed a small amount of air adjacent to the rectal anastomosis which was for the most part unchanged may be slightly improved from the previous. The ostomy was in place. No evidence of bowel obstruction was seen. A small amount of inflammatory change along the midline incision likely postsurgical. The hernia itself appeared without significant changes. Patient has a hernia right side of his abdomen. Comes back to the ER today once again complaining of pain in now stating that he cannot tolerate liquids. Frequent vomiting. Unable to tolerate his oral pain medications. Decreased ostomy function. X-rays were reviewed. No definite obstruction seen. States his hernia actually feels better than normal and not as large as it had previously been. - Review of Systems Comment: The patient denies any acute changes in vision or hearing, no dysphagia or odynophagia, no chest pain or shortness of breath, no dysuria or hematuria, no headache, no runny nose, no rectal bleeding or melena, no unexplained weight loss Past Medical History Past Medical History: Cancer, Hyperlipidemia Additional Past Medical History / Comment(s): rectal, back pain, rectal/colon cancer History of Any Multi-Drug Resistant Organisms: None Reported Past Surgical History: Appendectomy, Orthopedic Surgery Additional Past Surgical History / Comment(s): ileostomy with reversal, left elbow colostomy Past Anesthesia/Blood Transfusion Reactions: No Reported Reaction Past Psychological History: No Psychological Hx Reported Smoking Status: Never smoker Past Alcohol Use History: Rare Past Drug Use History: None Reported - Past Family History Mother Family Medical History: Cancer, Diabetes Mellitus Additional Family Medical History / Comment(s): from liver cancer Father Family Medical History: Myocardial Infarction ([place]) Medications and Allergies Home Medications Medication Instructions Recorded Confirmed Type Loperamide HCl [Imodium A-D] 4 mg PO Q4H PRN 11/03/18 11/18/19 History Diphenox-Atrop 2.5-0.025 mg 1 tab PO TID PRN 05/21/19 11/18/19 History [Lomotil] Hydrocodone/Acetaminophen [L[place]itte 2 tab PO Q6HR PRN 05/21/19 11/18/19 History 10-325] Triamterene/Hydrochlorothiazid 1 tab PO DAILY 10/08/19 11/18/19 History [Triamterene-Hctz 37.5-25 mg Tb] Docusate Sodium [Dok] 100 mg PO DAILY PRN 11/18/19 11/18/19 History Famotidine 20 mg PO BID 11/18/19 11/18/19 History Ferrous Gluconate 324 mg PO BID 11/18/19 11/18/19 History Gabapentin [Neurontin] 300 mg PO TID 11/18/19 11/18/19 History Simethicone Chew [Mylicon Chew] 80 mg PO BID 11/18/19 11/18/19 History oxyCODONE-APAP 10-325MG [Percocet 1 tab PO Q6H PRN 11/18/19 11/18/19 History 10-325 mg] Allergies Allergy/AdvReac Type Severity Reaction Status Date / Time No Known Allergies Allergy Verified 11/18/19 11:30 Surgical - Exam Vital Signs Temp Pulse Resp BP Pulse Ox 98.0 F 77 18 148/79 97 11/18/19 09:55 11/18/19 09:55 11/18/19 09:55 11/18/19 09:55 11/18/19 09:55 Physical exam: General: Well-developed, well-nourished HEENT: Normocephalic, sclerae nonicteric Abdomen: Mild diffuse tenderness, midline incision clean and dry, left-sided ostomy with bridge in place, hernia reducible and without significant tenderness Extremities: No edema Neuro: Alert and oriented Results - Labs 11/18/19 10:23 11/18/19 10:23 Abnormal Lab Results - Last 24 Hours (Table) 11/18/19 11/18/19 11/18/19 Range/Units 10:23 10:23 10:23 RBC 4.07 L (4.30-5.90) m/uL Hgb 9.6 L (13.0-17.5) gm/dL Hct 31.2 L (39.0-53.0) % MCV 76.5 L (80.0-100.0) fL MCH 23.7 L (25.0-35.0) pg MCHC 30.9 L (31.0-37.0) g/dL RDW 15.7 H (11.5-15.5) % Neutrophils # 7.9 H (1.3-7.7) k/uL Lymphocytes # 0.5 L (1.0-4.8) k/uL Sodium 136 L (137-145) mmol/L BUN 25 H (9-20) mg/dL Glucose 150 H (74-99) mg/dL Total Creatine Kinase (55-170) U/L Urine Protein Trace H (Negative) 11/18/19 Range/Units 10:23 RBC (4.30-5.90) m/uL Hgb (13.0-17.5) gm/dL Hct (39.0-53.0) % MCV (80.0-100.0) fL MCH (25.0-35.0) pg MCHC (31.0-37.0) g/dL RDW (11.5-15.5) % Neutrophils # (1.3-7.7) k/uL Lymphocytes # (1.0-4.8) k/uL Sodium (137-145) mmol/L BUN (9-20) mg/dL Glucose (74-99) mg/dL Total Creatine Kinase 42 L (55-170) U/L Urine Protein (Negative) Diabetes panel 11/18/19 Range/Units 10:23 Sodium 136 L (137-145) mmol/L Potassium 3.6 (3.5-5.1) mmol/L Chloride 99 (98-107) mmol/L Carbon Dioxide 25 (22-30) mmol/L BUN 25 H (9-20) mg/dL Creatinine 0.97 (0.66-1.25) mg/dL Glucose 150 H (74-99) mg/dL Calcium 9.7 (8.4-10.2) mg/dL AST 25 (17-59) U/L ALT 13 (4-49) U/L Alkaline Phosphatase 71 (38-126) U/L Total Protein 7.8 (6.3-8.2) g/dL Albumin 4.4 (3.5-5.0) g/dL Calcium panel 11/18/19 Range/Units 10:23 Calcium 9.7 (8.4-10.2) mg/dL Albumin 4.4 (3.5-5.0) g/dL Pituitary panel 11/18/19 Range/Units 10:23 Sodium 136 L (137-145) mmol/L Potassium 3.6 (3.5-5.1) mmol/L Chloride 99 (98-107) mmol/L Carbon Dioxide 25 (22-30) mmol/L BUN 25 H (9-20) mg/dL Creatinine 0.97 (0.66-1.25) mg/dL Glucose 150 H (74-99) mg/dL Calcium 9.7 (8.4-10.2) mg/dL Adrenal panel 11/18/19 Range/Units 10:23 Sodium 136 L (137-145) mmol/L Potassium 3.6 (3.5-5.1) mmol/L Chloride 99 (98-107) mmol/L Carbon Dioxide 25 (22-30) mmol/L BUN 25 H (9-20) mg/dL Creatinine 0.97 (0.66-1.25) mg/dL Glucose 150 H (74-99) mg/dL Calcium 9.7 (8.4-10.2) mg/dL Total Bilirubin 0.7 (0.2-1.3) mg/dL AST 25 (17-59) U/L ALT 13 (4-49) U/L Alkaline Phosphatase 71 (38-126) U/L Total Protein 7.8 (6.3-8.2) g/dL Albumin 4.4 (3.5-5.0) g/dL Assessment and Plan (1) Nausea & vomiting Narrative/Plan: 59-year-old male admitted with intractable pain and intractable nausea and vomiting. Continue IV hydration. Optimize analgesics. One dose of milk of magnesia order at this time. Continue clear liquids. Repeat abdominal x-rays tomorrow. Underlying bowel obstruction seems unlikely but not completely excluded. We'll follow closely. Hospitalist consult placed. Current Visit: No Status: Acute Code(s): R11.2 - NAUSEA WITH VOMITING, UNSPECIFIED SNOMED Code(s): 33219767
[2019-11-18] MEDS ORDERED: HEPARIN SODIUM,PORCINE 5,000 UNIT/ML 1 ML VIAL SQ SCH (16:00)
[2019-11-18] MEDS: KETOROLAC 30 MG/ML 1 ML VIAL IVP SCH (16:53)
[2019-11-18] MEDS: ONDANSETRON 4 MG/2 ML VIAL IVP PRN (20:13)
[2019-11-18] MEDS: SODIUM CHLORIDE 0.9% 1,000 ML IV SCH (20:37)
[2019-11-18] MEDS: oxyCODONE-APAP 10-325MG 1 EACH TAB PO PRN (21:47)
--- NOTE | 2019-11-18 22:38 | P.CONS ---
History of Present Illness - Reason for Consult Consult date: 11/18/19 Medical management of hypertension and other medical problems - Chief Complaint Abdominal pain, nausea and vomiting - History of Present Illness Patient is a 59-year-old male with a known history of colon/rectal cancer status post colectomy, history of ileostomy placement and reversal, hypertension came to ER with the complaints of intractable nausea vomiting and abdominal pain. Patient had colonic obstruction about a month ago and was transferred to [facility] where he underwent divering loop colostomy. Patient initially presented to ER after he fell at home yesterday. Patient says that she fell on on the table and hit his right side of the abdomen. Patient presented to ER wit h abdominal pain. CT of the abdomen pelvis was done which showed extraluminal collection of air and soft tissue thickening in the presacral space is smaller than on the prior.. Inflammatory change along the midline incision likely postsurgical. Patient has a hernia on the right side of the abdomen. Patient was sent home with improvement in pain while in the ER. Patient present back to the hospital due to intractable nausea vomiting and abdominal pain. Denied any blood in the vomitus. Yellowish and bile colored. Denied any aspiration. No chest pain. Patient denied any fever or chills. No cough or sputum production. No diarrhea. No leg swelling. No headache or dizziness or lightheadedness. X-rays of the abdomen showed overall nonobstructive bowel gas pattern. WBC 9.0 and hemoglobin 9.6, MCV 76.5.,platelets 372, sodium 136 and potassium 3.6 and BUN 25 Review of Systems Constitutional: Patient denies any fever or chills . No generalized weakness or weight loss. Abdomen: Patient does have nausea vomiting and abdominal pain. No diarrhea. Cardiovascular: Patient denies any chest pain or short of breath no palpitations. Respiratory: patient denied any cough is from production. No shortness of breath Neurologic: Patient denied any numbness or tingling headache. Musculoskeletal: Patient denies any complaints of joint swelling or deformity. Skin: Negative Psychiatric: Negative Endocrine: No heat or cold intolerance. No recent weight gain. Genitourinary: No dysuria or hematuria. All other 14 point ROS negative except the above Past Medical History Past Medical History: Cancer, Hyperlipidemia Additional Past Medical History / Comment(s): rectal, back pain, rectal/colon cancer History of Any Multi-Drug Resistant Organisms: None Reported Past Surgical History: Appendectomy, Orthopedic Surgery Additional Past Surgical History / Comment(s): ileostomy with reversal, left elbow colostomy Past Anesthesia/Blood Transfusion Reactions: No Reported Reaction Past Psychological History: No Psychological Hx Reported Smoking Status: Never smoker Past Alcohol Use History: Rare Past Drug Use History: None Reported - Past Family History Mother Family Medical History: Cancer, Diabetes Mellitus Additional Family Medical History / Comment(s): from liver cancer Father Family Medical History: Myocardial Infarction ([place]) Medications and Allergies Home Medications Medication Instructions Recorded Confirmed Type Loperamide HCl [Imodium A-D] 4 mg PO Q4H PRN 11/03/18 11/18/19 History Diphenox-Atrop 2.5-0.025 mg 1 tab PO TID PRN 05/21/19 11/18/19 History [Lomotil] Hydrocodone/Acetaminophen [Joanna 2 tab PO Q6HR PRN 05/21/19 11/18/19 History 10-325] Triamterene/Hydrochlorothiazid 1 tab PO DAILY 10/08/19 11/18/19 History [Triamterene-Hctz 37.5-25 mg Tb] Docusate Sodium [Dok] 100 mg PO DAILY PRN 11/18/19 11/18/19 History Famotidine 20 mg PO BID 11/18/19 11/18/19 History Ferrous Gluconate 324 mg PO BID 11/18/19 11/18/19 History Gabapentin [Neurontin] 300 mg PO TID 11/18/19 11/18/19 History Simethicone Chew [Mylicon Chew] 80 mg PO BID 11/18/19 11/18/19 History oxyCODONE-APAP 10-325MG [Percocet 1 tab PO Q6H PRN 11/18/19 11/18/19 History 10-325 mg] Allergies Allergy/AdvReac Type Severity Reaction Status Date / Time No Known Allergies Allergy Verified 11/18/19 11:30 Physical Exam Vitals: Vital Signs Temp Pulse Pulse Resp BP BP Pulse Ox 11/18/19 19:20 98.5 F 77 144/77 97 11/18/19 14:57 98.0 F 80 18 157/70 97 11/18/19 13:56 18 11/18/19 12:40 97.9 F 77 18 153/77 96 03/24/20 12:35 97.9 F 77 18 153/77 96 11/18/19 12:03 82 16 126/70 97 11/18/19 09:55 98.0 F 77 18 148/79 97 Intake and Output 11/18/19 11/18/19 11/18/19 06:59 14:59 22:59 Other: Weight 142.882 kg PHYSICAL EXAMINATION: Patient is lying in the bed comfortably, no acute distress, awake alert and oriented.. HEENT: Normocephalic. Neck is supple. Pupils reactive. Nostrils clear. Oral cavity is moist. Ears reveal no drainage. Neck reveals no JVD, carotid bruits, or thyromegaly. CHEST EXAMINATION: Trachea is central. Symmetrical expansion. Bibasilar diminished air entry. Lung dean clear to auscultation and percussion. CARDIAC: Normal S1, S2 with no gallops. No murmurs ABDOMEN: Soft. Midline incision is healing well. Bowel sounds present. Mild lower abdominal tenderness. No guarding no rigidity. No organomegaly. No abdominal bruits. Extremities: reveal no edema. No clubbing or cyanosis Neurologically awake, alert, oriented x3 with well-coordinated movements. No focal deficits noted Skin: No rash or skin lesions. Psychiatric: Coperative. Nonsuicidal Musculoskeletal: No joint swelling or deformity. Normal range of motion. Results CBC & Chem 7: 11/18/19 10:23 11/18/19 10:23 Labs: Abnormal Lab Results - Last 24 Hours (Table) 11/18/19 11/18/19 11/18/19 Range/Units 10:23 10:23 10:23 RBC 4.07 L (4.30-5.90) m/uL Hgb 9.6 L (13.0-17.5) gm/dL Hct 31.2 L (39.0-53.0) % MCV 76.5 L (80.0-100.0) fL MCH 23.7 L (25.0-35.0) pg MCHC 30.9 L (31.0-37.0) g/dL RDW 15.7 H (11.5-15.5) % Neutrophils # 7.9 H (1.3-7.7) k/uL Lymphocytes # 0.5 L (1.0-4.8) k/uL Sodium 136 L (137-145) mmol/L BUN 25 H (9-20) mg/dL Glucose 150 H (74-99) mg/dL Total Creatine Kinase (55-170) U/L Urine Protein Trace H (Negative) 11/18/19 Range/Units 10:23 RBC (4.30-5.90) m/uL Hgb (13.0-17.5) gm/dL Hct (39.0-53.0) % MCV (80.0-100.0) fL MCH (25.0-35.0) pg MCHC (31.0-37.0) g/dL RDW (11.5-15.5) % Neutrophils # (1.3-7.7) k/uL Lymphocytes # (1.0-4.8) k/uL Sodium (137-145) mmol/L BUN (9-20) mg/dL Glucose (74-99) mg/dL Total Creatine Kinase 42 L (55-170) U/L Urine Protein (Negative) Assessment and Plan Assessment: Intractable nausea and vomiting due to proximal small bowel ileus. Improved now. Abdominal pain status post fall at home on his right side of the abdomen. CT abdomen showed extraluminal air collection is smaller than previous study. Hypertension uncontrolled Microcytic iron deficiency anemia Recent history of colonic obstruction status post open diverting loop colostomy at [facility] one month ago History of colon cancer status post colectomy with history of ileostomy and reversal Hyperlipidemia DVT prophylaxis with heparin subcu Plan: Patient will be continued on IV hydration and pain management with Dilaudid. Patient was started on clear liquid diet. Symptomatic management for nausea and vomiting. Will hold hydrochlorothiazide/triamterene due to volume depletion. Will start on losartan 25 mg daily if the blood pressure is not controlled. We will check iron profile. May need IV iron infusion. Patient is already taking ferrous sulfate pills at home. Monitor his H&H. Will continue to follow with you and further recommendations based on the clinical course. Thank you for your consult.. Time with Patient: Greater than 30
[2019-11-19] MEDS: KETOROLAC 30 MG/ML 1 ML VIAL IVP SCH ×4 (00:20→17:07)
[2019-11-19] MEDS: SODIUM CHLORIDE 0.9% 1,000 ML IV SCH ×2 (00:22→17:08)
[2019-11-19] MEDS: HYDROmorphone 1 MG/ML 1 ML SYRINGE IVP PRN ×2 (02:30→06:51)
[2019-11-19] MEDS: ONDANSETRON 4 MG/2 ML VIAL IVP PRN ×4 (05:52→20:43)
[2019-11-19] MEDS: PANTOPRAZOLE 40 MG/10 ML VIAL IV SCH (06:53)
[2019-11-19] MEDS: HEPARIN SODIUM,PORCINE 5,000 UNIT/ML 1 ML VIAL SQ SCH ×2 (06:54→20:33)
[2019-11-19] MEDS: GABAPENTIN 300 MG CAP PO SCH ×3 (06:56→21:59)
[2019-11-19] MEDS: LOSARTAN 25 MG TAB PO SCH (06:56)
[2019-11-19 07:03] LABS: Basophils % (A) 0 %; Eosinophils # (A) 0.1 k/uL (0-0.7); Eosinophils % (A) 1 %; HCT 28.2 % (39.0-53.0); HGB 8.4 gm/dL (13.0-17.5); Hypochromasia Marked; Lymphocytes # (A) 1.2 k/uL (1.0-4.8); Lymphocytes % (A) 20 %; MCH 23.5 pg (25.0-35.0); MCHC 29.7 g/dL (31.0-37.0); Mean Platelet Volume 7.3; Monocytes # (A) 0.5 k/uL (0-1.0); Monocytes % (A) 8 %; Neutrophils # (A) 4.2 k/uL (1.3-7.7); Neutrophils % (A) 68 %; Platelet Count 266 k/uL (150-450); RBC 3.57 m/uL (4.30-5.90); RDW 15.5 % (11.5-15.5); WBC 6.1 k/uL (3.8-10.6)
[2019-11-19 07:16] LABS: Albumin 3.7 g/dL (3.5-5.0); Calcium 8.8 mg/dL (8.4-10.2); Potassium 3.4 mmol/L (3.5-5.1); Total Bilirubin 0.6 mg/dL (0.2-1.3); Total Protein 6.8 g/dL (6.3-8.2)
--- NOTE | 2019-11-19 08:20 | XR ---
EXAMINATION TYPE: XR abdomen 2V DATE OF EXAM: 11/19/2019 CLINICAL DATA: 59-year-old male intractable vomiting, [facility] COMPARISON: 11/18/2019 FINDINGS: Lung bases are clear. No evidence for free intraperitoneal air. Left lower quadrant colostomy is demonstrated. Numerous air-fluid levels right hemiabdomen seem to be localized to the colon. No definite dilated sm all bowel. Rectosigmoid metallic stent redemonstrated in the pelvis. 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 IMPRESSION: 1. Air-fluid levels within the right side of the abdomen appear to be primarily within the colon sugg esting progressive ileus. 2. Given surgical change here and the patient's known right ventral abdominal wall hernia, developing bowel obstruction with transition point at the hernia is not excluded at this time. Radiographic fol low-up recommended. 3. Known left lower quadrant colostomy and rectosigmoid metallic stent.
[2019-11-19] MEDS ORDERED: HYDROmorphone 0.5 MG/0.5 ML SYRINGE IVP STA (08:44)
[2019-11-19] MEDS ORDERED: ONDANSETRON 8 MG in SODIUM CHLORIDE 0.9% 50 ML IVPB ONE (08:46)
[2019-11-19] MEDS: oxyCODONE-APAP 10-325MG 1 EACH TAB PO PRN ×2 (09:16→21:59)
[2019-11-19] MEDS ORDERED: HYDROmorphone 1 MG/ML 1 ML SYRINGE IVP PRN ×2 (09:22→09:25)
[2019-11-19] MEDS ORDERED: HYDROmorphone 0.5 MG/0.5 ML SYRINGE IVP PRN (09:22)
--- NOTE | 2019-11-19 09:42 | P.PN ---
Subjective Progress Note Date: 11/19/19 Principal diagnosis: Ileus Patient had an episode of vomiting during the evening. He is having some loose stool through the ostomy. Still having some abdominal discomfort. Requesting more pain medications. Today's x-rays do show some air-fluid levels which is different from yesterday. Colonic ileus suspected per radiology. Pain seems to be more localized right lower quadrant today. Patient himself admits he has a hard time feeling the hernia. White blood cell count normal. Objective - Vital Signs Vital signs: Vital Signs Temp 98.1 F 11/19/19 06:45 Pulse 67 11/19/19 06:45 Resp 16 11/19/19 07:39 BP 148/74 11/19/19 06:45 Pulse Ox 97 11/19/19 06:45 Intake & Output 11/18/19 11/19/19 11/19/19 18:59 06:59 18:59 Intake Total 480 Balance 480 Weight 142.882 kg Intake: Oral 480 Other: # Voids 1 - Exam Abdomen: Soft, nondistended, mild right-sided tenderness, hernia difficult to palpate with certainty - Labs CBC & Chem 7: 11/19/19 06:18 11/19/19 06:18 Labs: Abnormal Lab Results - Last 24 Hours (Table) 11/18/19 11/18/19 11/18/19 Range/Units 10:23 10:23 10:23 RBC 4.07 L (4.30-5.90) m/uL Hgb 9.6 L (13.0-17.5) gm/dL Hct 31.2 L (39.0-53.0) % MCV 76.5 L (80.0-100.0) fL MCH 23.7 L (25.0-35.0) pg MCHC 30.9 L (31.0-37.0) g/dL RDW 15.7 H (11.5-15.5) % Neutrophils # 7.9 H (1.3-7.7) k/uL Lymphocytes # 0.5 L (1.0-4.8) k/uL Sodium 136 L (137-145) mmol/L Potassium (3.5-5.1) mmol/L Chloride (98-107) mmol/L BUN 25 H (9-20) mg/dL Glucose 150 H (74-99) mg/dL Total Creatine Kinase (55-170) U/L Urine Protein Trace H (Negative) 11/18/19 11/19/19 11/19/19 Range/Units 10:23 06:18 06:18 RBC 3.57 L (4.30-5.90) m/uL Hgb 8.4 L (13.0-17.5) gm/dL Hct 28.2 L (39.0-53.0) % MCV 79.0 L (80.0-100.0) fL MCH 23.5 L (25.0-35.0) pg MCHC 29.7 L (31.0-37.0) g/dL RDW (11.5-15.5) % Neutrophils # (1.3-7.7) k/uL Lymphocytes # (1.0-4.8) k/uL Sodium 135 L (137-145) mmol/L Potassium 3.4 L (3.5-5.1) mmol/L Chloride 97 L (98-107) mmol/L BUN 28 H (9-20) mg/dL Glucose 101 H (74-99) mg/dL Total Creatine Kinase 42 L (55-170) U/L Urine Protein (Negative) Assessment and Plan (1) Nausea & vomiting Narrative/Plan: Continue clear liquids. Increase activity. Ostomy nurse evaluation requested. Increase analgesics. If symptoms persist we'll repeat CAT scan. Hopefully bowel function will continue improving. Current Visit: No Status: Acute Code(s): R11.2 - NAUSEA WITH VOMITING, UNS PECIFIED SNOMED Code(s): 39870598
[2019-11-19] MEDS ORDERED: POTASSIUM CHLORIDE ER 20 MEQ TAB.ER PO STA (09:59)
[2019-11-19] MEDS ORDERED: POTASSIUM CHLORIDE 10 MEQ in WATER FOR INJECTION 1 100ML.BAG IVPB SCH (10:00)
[2019-11-19 10:35] LABS: % Iron Saturation 11.7 (15.00-50.00)
[2019-11-19] MEDS: HYDROmorphone 2 MG/ML 1 ML SYRINGE IVP PRN ×5 (11:05→23:23)
[2019-11-19 11:39] VITALS: BMI 45.1
[2019-11-19] MEDS ORDERED: Potassium Replacement Protocol 1 EACH MISC MISCELLANE PRN (12:10)
[2019-11-19] MEDS: SODIUM FERRIC GLUCONAT-SUCROSE 125 MG in SODIUM CHLORIDE 0.9% 100 ML IVPB SCH (12:40)
--- NOTE | 2019-11-19 22:29 | P.PN ---
Subjective Progress Note Date: 11/19/19 Principal diagnosis: Intractable nausea and vomiting due to ileus Patient is a 59-year-old male with a known history of colon/rectal cancer status post colectomy, history of ileostomy placement and reversal, hypertension came to ER with the complaints of intractable nausea vomiting and abdominal pain. Patient had colonic obstruction about a month ago and was transferred to [facility] where he underwent divering loop colostomy. Patient initially presented to ER after he fell at home yesterday. Patient says that she fell on on the table and hit his right side of the abdomen. Patient presented to ER with abdominal pain. CT of the abdomen pelvis was done which showed extraluminal collection of air and soft tissue thickening in the presacral space is smaller than on the prior.. Inflammatory change along the midline incision likely postsurgical. Patient has a hernia on the right side of the abdomen. Patient was sent home with improvement in pain while in the ER. Patient present back to the hospital due to intractable nausea vomiting and abdominal pain. Denied any blood in the vomitus. Yellowish and bile colored. Denied any aspiration. No chest pain. Patient denied any fever or chills. No cough or sputum production. No diarrhea. No leg swelling. No headache or dizziness or lightheadedness. X-rays of the abdomen showed overall nonobstructive bowel gas pattern. WBC 9.0 and hemoglobin 9.6, MCV 76.5.,platelets 372, sodium 136 and potassium 3. 6 and BUN 25 11/19/2019 Patient says that his nausea is better today. Wants to eat soft diet. Abd ominal pain is still present but improved compared to yesterday. Still requiring IV pain medications. Hemoglobin level is 8.4. Patient will be started on IV iron 3 dose while in the hospital due to iron deficiency. No complaints of chest pain. No episodes of vomiting today. No shortness of breath. Potassium is 3.4 which is being replaced. Abdominal x-ray showed air fluid levels within the right side of the abdomen appears to be primarily within the colon suggesting progressive ileus. Anticipate discharge next 24-48 hours with more clinical improvement. Current medications reviewed. Objective - Vital Signs Vital signs: Vital Signs Temp 98.1 F 11/19/19 06:45 Pulse 67 11/19/19 06:45 Resp 16 11/19/19 07:39 BP 148/74 11/19/19 06:45 Pulse Ox 97 11/19/19 06:45 Intake & Output 11/18/19 11/19/19 11/19/19 18:59 06:59 18:59 Intake Total 480 Balance 480 Weight 142.882 kg 142.882 kg Intake: Oral 480 Other: # Voids 1 - Exam PHYSICAL EXAMINATION: Patient is lying in the bed comfortably, no acute distress, awake alert and oriented.. HEENT: Normocephalic. Neck is supple. Pupils reactive. Nostrils clear. Oral cavity is moist. Ears reveal no drainage. Neck reveals no JVD, carotid bruits, or thyromegaly. CHEST EXAMINATION: Trachea is central. Symmetrical expansion. Bibasilar diminished air entry. Lung dean clear to auscultation and percussion. CARDIAC: Normal S1, S2 with no gallops. No murmurs ABDOMEN: Soft. Midline incision is healing well. Bowel sounds present. Mild lower abdominal tenderness. No guarding no rigidity. Left-sided colostomy bag in place. No organomegaly. No abdominal bruits. Extremities: reveal no edema. No clubbing or cyanosis Neurologically awake, alert, oriented x3 with well-coordinated movements. No focal deficits noted Skin: No rash or skin lesions. Psychiatric: Coperative. Nonsuicidal Musculoskeletal: No joint swelling or deformity. Normal range of motion. - Labs CBC & Chem 7: 11/19/19 06:18 11/19/19 06:18 Labs: Abnormal Lab Results - Last 24 Hours (Table) 11/19/19 11/19/19 Range/Units 06:18 06:18 RBC 3.57 L (4.30-5.90) m/uL Hgb 8.4 L (13.0-17.5) gm/dL Hct 28.2 L (39.0-53.0) % MCV 79.0 L (80.0-100.0) fL MCH 23.5 L (25.0-35.0) pg MCHC 29.7 L (31.0-37.0) g/dL Sodium 135 L (137-145) mmol/L Potassium 3.4 L (3.5-5.1) mmol/L Chloride 97 L (98-107) mmol/L BUN 28 H (9-20) mg/dL Glucose 101 H (74-99) mg/dL Iron 42 L (65-175) ug/dL % Saturation 11.70 L (15.00-50.00) Assessment and Plan Assessment: Intractable nausea and vomiting due to proximal small bowel ileus. Improved now. Abdominal pain status post fall at home on his right side of the abdomen. CT abdomen showed extraluminal air collection is smaller than previous study. Hypertension uncontrolled Microcytic iron deficiency anemia Recent history of colonic obstruction status post open diverting loop colostomy at [facility] one month ago History of colon cancer status post colectomy with history of ileostomy and reversal Hyperlipidemia DVT prophylaxis with heparin subcu Plan: Patient will be continued on IV hydration and pain management with Dilaudid. Patient was started on clear liquid diet. Symptomatic management for nausea and vomiting. Will hold hydrochlorothiazide/triamterene due to volume depletion. Started on losartan 25 mg daily. Patient does have iron deficiency. Started on IV iron infusion while in the hospital. Patient is already taking ferrous sulfate pills at home. Monitor his H&H. Will continue to follow with you and further recommendations based on the clinical course. Thank you for your consult.. Time with Patient: Greater than 30
[2019-11-20] MEDS: KETOROLAC 30 MG/ML 1 ML VIAL IVP SCH ×3 (00:15→13:29)
[2019-11-20] MEDS: SODIUM CHLORIDE 0.9% 1,000 ML IV SCH ×3 (00:17→20:22)
[2019-11-20] MEDS: HYDROmorphone 2 MG/ML 1 ML SYRINGE IVP PRN ×7 (02:03→22:56)
[2019-11-20] MEDS: oxyCODONE-APAP 10-325MG 1 EACH TAB PO PRN ×2 (07:30→21:19)
[2019-11-20] MEDS: GABAPENTIN 300 MG CAP PO SCH ×3 (07:32→21:20)
[2019-11-20] MEDS: LOSARTAN 25 MG TAB PO SCH (07:32)
[2019-11-20] MEDS: HEPARIN SODIUM,PORCINE 5,000 UNIT/ML 1 ML VIAL SQ SCH ×2 (07:32→19:44)
[2019-11-20] MEDS ORDERED: KETOROLAC 30 MG/ML 1 ML VIAL IM ONE (09:08)
[2019-11-20] MEDS: SODIUM FERRIC GLUCONAT-SUCROSE 125 MG in SODIUM CHLORIDE 0.9% 100 ML IVPB SCH ×2 (09:56→10:52)
[2019-11-20] MEDS: PANTOPRAZOLE 40 MG/10 ML VIAL IV SCH (09:56)
--- NOTE | 2019-11-20 11:32 | P.PN ---
<Lisa Williamson - Last Filed: 11/20/19 11:28> Subjective Progress Note Date: 11/20/19 CHIEF COMPLAINT: Ileus HISTORY OF PRESENT ILLNESS: Patient examined this morning at the bedside. Patient lost IV access overnight and was unable to receive his Dilaudid. He is reporting uncontrolled pain this morning. He reports a few episodes of emesis overnight and this morning. However, nursing did not witness this. He has a very small amount of liquid stool in his ostomy. PHYSICAL EXAM: VITAL SIGNS: Reviewed. GENERAL: Well-developed in no acute distress. HEENT: No sclera icterus. Extraocular movements grossly intact. Moist buccal mucosa. Head is atraumatic, normocephalic. ABDOMEN: Soft. Nondistended. Ostomy with small amount of liquid stool. No gas in bag. Tenderness with palpation. Right worse than left. NEUROLOGIC: Alert and oriented. Cranial nerves II through XII grossly intact. ASSESSMENT: 1. Abdominal pain PLAN: -Discussed NG tube with patient. Patient adamantly refusing -Obtain Midline IV -Pain control. Toradol x 1 IM until PIV access is obtained. Then continue Dilaudid and Toradol IV -Obtain CT abdomen pelvis with IV and oral contrast. Await results Nurse practitioner note has been reviewed by physician. Signing provider agrees with the documented findings, assessment, and plan of care. Objective - Vital Signs Vital signs: Vital Signs Temp 98.2 F 11/20/19 07:00 Pulse 72 11/20/19 08:00 Resp 17 11/20/19 08:00 BP 157/71 11/20/19 07:00 Pulse Ox 98 11/20/19 07:00 Intake & Output 11/19/19 11/20/19 11/20/19 18:59 06:59 18:59 Intake Total 600 Output Total 400 Balance 200 Weight 142.882 kg Intake: Intake, IV Titration 600 Amount Sodium Ferric Gluconat- 600 Sucrose 125 mg In Sodium Chloride 0.9% 100 ml @ 100 mls/hr IVPB DAILY [facility] Rx#:[id number] Output: Stool 400 Other: # Voids 2 - Labs CBC & Chem 7: 11/19/19 06:18 11/19/19 06:18 <Dru Lawson - Last Filed: 11/20/19 16:01> Subjective As above. Patient had increased pain this morning. Doing much better now. He did have some stool through the ostomy. He tolerated both doses of his oral contrast without significant difficulty. CAT scan reviewed. Contrast has not made it to the small bowel within the large right-sided hernia however no definitive obstruction seen. There is moderate air in the transverse colon proximal to his ostomy. We'll resume full liquid diet. Advance as tolerated. Will check an x-ray tomorrow to evaluate the extent of contrast passage. Objective - Vital Signs Vital signs: Vital Signs Temp 98.3 F 11/20/19 14:58 Pulse 60 11/20/19 14:58 Resp 17 11/20/19 14:58 BP 153/70 11/20/19 14:58 Pulse Ox 98 11/20/19 14:58 Intake & Output 11/19/19 11/20/19 11/20/19 18:59 06:59 18:59 Intake Total 600 100 Output Total 400 Balance 200 100 Weight 142.882 kg Intake: Intake, IV Titration 600 100 Amount Sodium Ferric Gluconat- 600 100 Sucrose 125 mg In Sodium Chloride 0.9% 100 ml @ 100 mls/hr IVPB DAILY [facility] Rx#:[id number] Output: Stool 400 Other: # Voids 2 - Labs CBC & Chem 7: 11/19/19 06:18 11/19/19 06:18 Assessment and Plan (1) Nausea & vomiting Current Visit: No Status: Acute Code(s): R11.2 - NAUSEA WITH VOMITING, UNSPECIFIED SNOMED Code(s): 72015157
[2019-11-20] MEDS: IOPAMIDOL CONTRAST (ORAL USE) VIAL PO PRN ×2 (13:23→14:32)
--- NOTE | 2019-11-20 15:36 | CT ---
EXAMINATION TYPE: CT abdomen pelvis w con DATE OF EXAM: 11/20/2019 COMPARISON: CT abdomen and pelvis 3 days ago and older CTs. HISTORY: abdominal pain, r/o obstruction CT DLP: 2662.6 mGycm, Automated Exposure Control for Dose Reduction was Utilized. CONTRAST: CT scan of the abdomen and pelvis is performed with oral and with IV Contrast, patient injected with 100 mL of Isovue 300. FINDINGS: LUNG BASES: Persistent posterior right basilar diaphragmatic Bochdalek type hernia. LIVER/GB: No significant abnormality is appreciated. PANCREAS: No significant abnormality is seen. SPLEEN: No significant abnormality is seen. ADRENALS: No significant abnormality is seen. KIDNEYS: Their is 1.2 cm simple appearing thin-walled cyst laterally upper to midpole level right kid yohan delayed axial image 27. BOWEL: On current study oral contrast only extends into distal small bowel loops throughout the abdom en and pelvis. There is persistent right lateral wide neck ventral wall hernia containing nondistende d small bowel loops. Surgical sutures noted involving herniated small bowel loop. No suspicious dilat ation. Persistent left mid abdominal colostomy. Persistent sigmoid rectal stump with metallic sigmoid rectal metallic stent. Persistent abnormal soft tissue presacral space possible residual neoplasm. S ome nonspecific foci of air near the distal portion of metallic stent next image 83 for reference are redemonstrated. Developing infection at this level cannot be excluded. Small air-fluid level superio r to the second 68 is unchanged from prior and could reflect sinus track and loculated pneumoperitone um versus focal abscess. PROSTATE/SEMINAL VESICLES: Prostate gland not well seen similar to prior. LYMPH NODES: No greater than 1cm abdominal or pelvic lymph nodes are appreciated. OSSEOUS STRUCTURES: Advanced degenerative change right hip joint with marked joint space loss and bon e-on-bone formation with subchondral cystic change. OTHER: Overlying midline vertical scar mid abdomen through the pelvis. Small thin-walled fluid collec tion near image 67 is fairly stable favoring postsurgical seroma. IMPRESSION: 1. No significant change from most recent prior CT. No new bowel obstruction.
[2019-11-20] MEDS: ONDANSETRON 4 MG/2 ML VIAL IVP PRN (19:56)
[2019-11-21] MEDS: HYDROmorphone 2 MG/ML 1 ML SYRINGE IVP PRN ×8 (02:01→22:44)
[2019-11-21] MEDS: SODIUM CHLORIDE 0.9% 1,000 ML IV SCH ×3 (05:06→21:17)
[2019-11-21] MEDS: oxyCODONE-APAP 10-325MG 1 EACH TAB PO PRN (06:00)
[2019-11-21] MEDS: PANTOPRAZOLE 40 MG/10 ML VIAL IV SCH (08:04)
[2019-11-21] MEDS: GABAPENTIN 300 MG CAP PO SCH ×3 (08:04→21:15)
[2019-11-21] MEDS: LOSARTAN 25 MG TAB PO SCH (08:04)
[2019-11-21] MEDS: HEPARIN SODIUM,PORCINE 5,000 UNIT/ML 1 ML VIAL SQ SCH ×2 (08:04→19:49)
--- NOTE | 2019-11-21 09:13 | P.PN ---
Subjective Progress Note Date: 11/21/19 Principal diagnosis: Ileus The patient says his ostomy appliance fell off last night. There was some liquid stool within it. Denies any significant pain currently. Had 1 episode of vomiting he states last night. He apparently was eating well yesterday afternoon. Today's x-rays show that the contrast has made into the transverse colon. No significant bowel dilation appreciated at this time. Objective - Vital Signs Vital signs: Vital Signs Temp 98.9 F 11/21/19 07:21 Pulse 94 11/21/19 08:10 Resp 20 11/21/19 08:10 BP 143/78 11/21/19 07:21 Pulse Ox 98 11/21/19 07:21 Intake & Output 11/20/19 11/21/19 11/21/19 18:59 06:59 18:59 Intake Total 100 480 Output Total 400 Balance -300 480 Intake: Intake, IV Titration 100 Amount Sodium Ferric Gluconat- 100 Sucrose 125 mg In Sodium Chloride 0.9% 100 ml @ 100 mls/hr IVPB DAILY [facility] Rx#:[id number] Oral 480 Output: Stool 400 Other: # Voids 1 - Exam Abdomen: Soft, nondistended, hernia unchanged unable to fully reduce - Labs CBC & Chem 7: 11/19/19 06:18 11/19/19 06:18 Assessment and Plan (1) Nausea & vomiting Narrative/Plan: Continue low fiber diet. Possible discharge over the weekend if he tolerates h is diet. Certainly the patient will require repair of this incarcerated incisional hernia. Would like to hold off further so that this can be performed on an elective basis with more time between the hernia repair and his recent laparotomy incision. We'll provide another dose of milk of magnesia today. Increase activity. Current Visit: No Status: Acute Code(s): R11.2 - NAUSEA WITH VOMITING, UNSPECIFIED SNOMED Code(s): 64128213
--- NOTE | 2019-11-21 09:14 | XR ---
EXAMINATION TYPE: XR abdomen 2V DATE OF EXAM: 11/21/2019 CLINICAL DATA: 59-year-old male with ileus, H COMPARISON: 11/19/2019 FINDINGS: Lung bases are clear. No evidence for free intraperitoneal air. Small air-fluid levels right mid and lower abdomen. Oral contrast has progressed into the colon no. T he descending colon is dilated at 8.0 cm with bird beak tapering noted prior to the left lower quadra nt colostomy, suspected transient given appearance on the 11/20/2019 CT. Metallic rectosigmoid stent redemonstrated in the pelvis. 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 IMPRESSION: 1. Oral contrast progressed into the colon. 2. Left lower quadrant colostomy. There is dilatation of the descending colon at 8.0 cm with bird jess k tapering noted prior to the left lower quadrant colostomy, suspected transient change given appeara nce on CT of 11/20/2019 (showing no obstructing lesion at this site). Radiographic follow-up recommend ed. 3. This dilatation along with some small air-fluid levels in the right mid and lower abdomen suspecte d to relate to ileus.
[2019-11-21] MEDS: SODIUM FERRIC GLUCONAT-SUCROSE 125 MG in SODIUM CHLORIDE 0.9% 100 ML IVPB SCH (09:32)
[2019-11-21] MEDS: ONDANSETRON 4 MG/2 ML VIAL IVP PRN ×2 (10:41→19:49)
[2019-11-21 14:59] VITALS: RESP 18
--- NOTE | 2019-11-21 23:18 | P.PN ---
Subjective Progress Note Date: 11/20/19 Principal diagnosis: Intractable nausea and vomiting due to ileus Patient is a 59-year-old male with a known history of colon/rectal cancer status post colectomy, history of ileostomy placement and reversal, hypertension came to ER with the complaints of intractable nausea vomiting and abdominal pain. Patient had colonic obstruction about a month ago and was transferred to [facility] where he underwent divering loop colostomy. Patient initially presented to ER after he fell at home yesterday. Patient says that she fell on on the table and hit his right side of the abdomen. Patient presented to ER with abdominal pain. CT of the abdomen pelvis was done which showed extraluminal collection of air and soft tissue thickening in the presacral space is smaller than on the prior.. Inflammatory change along the midline incision likely postsurgical. Patient has a hernia on the right side of the abdomen. Patient was sent home with improvement in pain while in the ER. Patient present back to the hospital due to intractable nausea vomiting and abdominal pain. Denied any blood in the vomitus. Yellowish and bile colored. Denied any aspiration. No chest pain. Patient denied any fever or chills. No cough or sputum production. No diarrhea. No leg swelling. No headache or dizziness or lightheadedness. X-rays of the abdomen showed overall nonobstructive bowel gas pattern. WBC 9.0 and hemoglobin 9.6, MCV 76.5.,platelets 372, sodium 136 and potassium 3. 6 and BUN 25 11/19/2019 Patient says that his nausea is better today. Wants to eat soft diet. Abd ominal pain is still present but improved compared to yesterday. Still requiring IV pain medications. Hemoglobin level is 8.4. Patient will be started on IV iron 3 dose while in the hospital due to iron deficiency. No complaints of chest pain. No episodes of vomiting today. No shortness of breath. Potassium is 3.4 which is being replaced. Abdominal x-ray showed air fluid levels within the right side of the abdomen appears to be primarily within the colon suggesting progressive ileus. Anticipate discharge next 24-48 hours with more clinical improvement. 11/20/2019 Patient is complaining of abdominal pain still. Patient did have episode of emesis this morning. Patient lost his IV line last night and is requesting pain medications. Colostomy bag contents minimal liquid stool. CT of the abdomen pelvis was ordered. Otherwise patient is afebrile. No complaints of chest pain or shortness breath. No headache or dizziness or lightheadedness. Current medications reviewed. Objective - Vital Signs Vital signs: Vital Signs Temp 98.2 F 11/20/19 07:00 Pulse 72 11/20/19 08:00 Resp 17 11/20/19 08:00 BP 157/71 11/20/19 07:00 Pulse Ox 98 11/20/19 07:00 Intake & Output 11/19/19 11/20/19 11/20/19 18:59 06:59 18:59 Intake Total 600 Output Total 400 Balance 200 Weight 142.882 kg Intake: Intake, IV Titration 600 Amount Sodium Ferric Gluconat- 600 Sucrose 125 mg In Sodium Chloride 0.9% 100 ml @ 100 mls/hr IVPB DAILY [facility] Rx#:[id number] Output: Stool 400 Other: # Voids 2 - Exam PHYSICAL EXAMINATION: Patient is lying in the bed comfortably, no acute distress, awake alert and oriented.. HEENT: Normocephalic. Neck is supple. Pupils reactive. Nostrils clear. Oral cavity is moist. Ears reveal no drainage. Neck reveals no JVD, carotid bruits, or thyromegaly. CHEST EXAMINATION: Trachea is central. Symmetrical expansion. Bibasilar diminished air entry. Lung dean clear to auscultation and percussion. CARDIAC: Normal S1, S2 with no gallops. No murmurs ABDOMEN: Soft. Midline incision is healing well. Bowel sounds present. Mild lower abdominal tenderness. No guarding no rigidity. Left-sided colostomy bag in place. No organomegaly. No abdominal bruits. Extremities: reveal no edema. No clubbing or cyanosis Neurologically awake, alert, oriented x3 with well-coordinated movements. No focal deficits noted Skin: No rash or skin lesions. Psychiatric: Coperative. Nonsuicidal Musculoskeletal: No joint swelling or deformity. Normal range of motion. - Labs CBC & Chem 7: 11/19/19 06:18 11/19/19 06:18 Assessment and Plan Assessment: Intractable nausea and vomiting due to proximal small bowel ileus. Improved now. Abdominal pain status post fall at home on his right side of the abdomen. CT abdomen showed extraluminal air collection is smaller than previous study. Hypertension uncontrolled Microcytic iron deficiency anemia Recent history of colonic obstruction status post open diverting loop colostomy at [facility] one month ago History of colon cancer status post colectomy with history of ileostomy and reversal Hyperlipidemia DVT prophylaxis with heparin subcu Plan: Patient will be continued on IV hydration and pain management with Dilaudid. Patient was started on clear liquid diet. Symptomatic management for nausea and vomiting. Will hold hydrochlorothiazide/triamterene due to volume depletion. Started on losartan 25 mg daily. Patient does have iron deficiency. Started on IV iron infusion while in the hospital. Patient is already taking ferrous sulfate pills at home. Monitor his H&H. Will continue to follow with you and further recommendations based on the clinical course. Thank you for your consult.. Time with Patient: Greater than 30
--- NOTE | 2019-11-21 23:21 | P.PN ---
Subjective Progress Note Date: 11/21/19 Principal diagnosis: Intractable nausea and vomiting due to ileus Patient is a 59-year-old male with a known history of colon/rectal cancer status post colectomy, history of ileostomy placement and reversal, hypertension came to ER with the complaints of intractable nausea vomiting and abdominal pain. Patient had colonic obstruction about a month ago and was transferred to [facility] where he underwent divering loop colostomy. Patient initially presented to ER after he fell at home yesterday. Patient says that she fell on on the table and hit his right side of the abdomen. Patient presented to ER with abdominal pain. CT of the abdomen pelvis was done which showed extraluminal collection of air and soft tissue thickening in the presacral space is smaller than on the prior.. Inflammatory change along the midline incision likely postsurgical. Patient has a hernia on the right side of the abdomen. Patient was sent home with improvement in pain while in the ER. Patient present back to the hospital due to intractable nausea vomiting and abdominal pain. Denied any blood in the vomitus. Yellowish and bile colored. Denied any aspiration. No chest pain. Patient denied any fever or chills. No cough or sputum production. No diarrhea. No leg swelling. No headache or dizziness or lightheadedness. X-rays of the abdomen showed overall nonobstructive bowel gas pattern. WBC 9.0 and hemoglobin 9.6, MCV 76.5.,platelets 372, sodium 136 and potassium 3. 6 and BUN 25 11/19/2019 Patient says that his nausea is better today. Wants to eat soft diet. Abd ominal pain is still present but improved compared to yesterday. Still requiring IV pain medications. Hemoglobin level is 8.4. Patient will be started on IV iron 3 dose while in the hospital due to iron deficiency. No complaints of chest pain. No episodes of vomiting today. No shortness of breath. Potassium is 3.4 which is being replaced. Abdominal x-ray showed air fluid levels within the right side of the abdomen appears to be primarily within the colon suggesting progressive ileus. Anticipate discharge next 24-48 hours with more clinical improvement. 11/20/2019 Patient is complaining of abdominal pain still. Patient did have episode of emesis this morning. Patient lost his IV line last night and is requesting pain medications. Colostomy bag contents minimal liquid stool. CT of the abdomen pelvis was ordered. Otherwise patient is afebrile. No complaints of chest pain or shortness breath. No headache or dizziness or lightheadedness. 11/21/2019 Patient says that his abdominal pain is better today. Patient did have large bowel movement in the colostomy bag. Was started on diet and will be advanced as tolerated. Patient has been afebrile. Repeat CT abdomen showed no new changes. Abdominal x-ray done today is still showing ileus. Patient does have right lateral abdominal wall hernia. No chest pain or shortness of breath. No headache or dizziness or lightheadedness. Current medications reviewed. Objective - Vital Signs Vital signs: Vital Signs Temp 98.9 F 11/21/19 07:21 Pulse 94 11/21/19 08:10 Resp 20 11/21/19 08:10 BP 143/78 11/21/19 07:21 Pulse Ox 98 11/21/19 07:21 Intake & Output 11/20/19 11/21/19 11/21/19 18:59 06:59 18:59 Intake Total 100 480 Output Total 400 Balance -300 480 Weight 142.882 kg Intake: Intake, IV Titration 100 Amount Sodium Ferric Gluconat- 100 Sucrose 125 mg In Sodium Chloride 0.9% 100 ml @ 100 mls/hr IVPB DAILY [facility] Rx#:[id number] Oral 480 Output: Stool 400 Other: # Voids 1 - Exam PHYSICAL EXAMINATION: Patient is lying in the bed comfortably, no acute distress, awake alert and oriented.. HEENT: Normocephalic. Neck is supple. Pupils reactive. Nostrils clear. Oral cavity is moist. Ears reveal no drainage. Neck reveals no JVD, carotid bruits, or thyromegaly. CHEST EXAMINATION: Trachea is central. Symmetrical expansion. Bibasilar diminished air entry. Lung dean clear to auscultation and percussion. CARDIAC: Normal S1, S2 with no gallops. No murmurs ABDOMEN: Soft. Midline incision is healing well. Bowel sounds present. Mild lower abdominal tenderness. No guarding no rigidity. Left-sided colostomy bag in place. No organomegaly. No abdominal bruits. Extremities: reveal no edema. No clubbing or cyanosis Neurologically awake, alert, oriented x3 with well-coordinated movements. No focal deficits noted Skin: No rash or skin lesions. Psychiatric: Coperative. Nonsuicidal Musculoskeletal: No joint swelling or deformity. Normal range of motion. - Labs CBC & Chem 7: 11/19/19 06:18 11/19/19 06:18 Assessment and Plan Assessment: Intractable nausea and vomiting due to proximal small bowel ileus. Improved now. Abdominal pain status post fall at home on his right side of the abdomen. CT a bdomen showed extraluminal air collection is smaller than previous study. Right-sided abdominal wall hernia Hypertension uncontrolled Microcytic iron deficiency anemia Recent history of colonic obstruction status post open diverting loop colostomy at [facility] one month ago History of colon cancer status post colectomy with history of ileostomy and reversal Hyperlipidemia DVT prophylaxis with heparin subcu Plan: Patient will be continued on IV hydration and pain management with Dilaudid. Patient was started on clear liquid diet. Symptomatic management for nausea and vomiting. Will hold hydrochlorothiazide/triamterene due to volume depletion. Started on losartan 25 mg daily. Patient does have iron deficiency. Started on IV iron infusion while in the hospital. Patient is already taking ferrous sulfate pills at home. Monitor his H&H. Will continue to follow with you and further recommendations based on the clinical course. Time with Patient: Greater than 30
[2019-11-22] MEDS: oxyCODONE-APAP 10-325MG 1 EACH TAB PO PRN ×2 (00:27→07:15)
[2019-11-22] MEDS: HYDROmorphone 2 MG/ML 1 ML SYRINGE IVP PRN ×2 (01:54→04:47)
[2019-11-22] MEDS: HEPARIN SODIUM,PORCINE 5,000 UNIT/ML 1 ML VIAL SQ SCH (07:15)
[2019-11-22] MEDS: GABAPENTIN 300 MG CAP PO SCH (07:15)
[2019-11-22] MEDS: LOSARTAN 25 MG TAB PO SCH (07:15)
[2019-11-22 07:24] VITALS: BP 185/84; PULSE 82; TEMP 97.8
[2019-11-22] MEDS ORDERED: PANTOPRAZOLE 40 MG TABLET PO SCH (07:30)
--- NOTE | 2019-12-03 00:27 | P.PN ---
Subjective Progress Note Date: 11/22/19 Principal diagnosis: Intractable nausea and vomiting due to ileus Patient is a 59-year-old male with a known history of colon/rectal cancer status post colectomy, history of ileostomy placement and reversal, hypertension came to ER with the complaints of intractable nausea vomiting and abdominal pain. Patient had colonic obstruction about a month ago and was transferred to [facility] where he underwent divering loop colostomy. Patient initially presented to ER after he fell at home yesterday. Patient says that she fell on on the table and hit his right side of the abdomen. Patient presented to ER with abdominal pain. CT of the abdomen pelvis was done which showed extraluminal collection of air and soft tissue thickening in the presacral space is smaller than on the prior.. Inflammatory change along the midline incision likely postsurgical. Patient has a hernia on the right side of the abdomen. Patient was sent home with improvement in pain while in the ER. Patient present back to the hospital due to intractable nausea vomiting and abdominal pain. Denied any blood in the vomitus. Yellowish and bile colored. Denied any aspiration. No chest pain. Patient denied any fever or chills. No cough or sputum production. No diarrhea. No leg swelling. No headache or dizziness or lightheadedness. X-rays of the abdomen showed overall nonobstructive bowel gas pattern. WBC 9.0 and hemoglobin 9.6, MCV 76.5.,platelets 372, sodium 136 and potassium 3. 6 and BUN 25 11/19/2019 Patient says that his nausea is better today. Wants to eat soft diet. Abd ominal pain is still present but improved compared to yesterday. Still requiring IV pain medications. Hemoglobin level is 8.4. Patient will be started on IV iron 3 dose while in the hospital due to iron deficiency. No complaints of chest pain. No episodes of vomiting today. No shortness of breath. Potassium is 3.4 which is being replaced. Abdominal x-ray showed air fluid levels within the right side of the abdomen appears to be primarily within the colon suggesting progressive ileus. Anticipate discharge next 24-48 hours with more clinical improvement. 11/20/2019 Patient is complaining of abdominal pain still. Patient did have episode of emesis this morning. Patient lost his IV line last night and is requesting pain medications. Colostomy bag contents minimal liquid stool. CT of the abdomen pelvis was ordered. Otherwise patient is afebrile. No complaints of chest pain or shortness breath. No headache or dizziness or lightheadedness. 11/21/2019 Patient says that his abdominal pain is better today. Patient did have large bowel movement in the colostomy bag. Was started on diet and will be advanced as tolerated. Patient has been afebrile. Repeat CT abdomen showed no new changes. Abdominal x-ray done today is still showing ileus. Patient does have right lateral abdominal wall hernia. No chest pain or shortness of breath. No headache or dizziness or lightheadedness. 11/22/2019 Patient denied any complaints of chest pain or shortness of breath. Patient does have stool in the colostomy back. Nausea much improved. Still complains of right-sided abdominal pain but much improved. No headache or dizziness or lightheadedness. No acute overnight issues. Patient has been afebrile. Possible discharge home today. Current medications reviewed. Objective - Vital Signs Vital signs: Vital Signs Temp 97.8 F 11/22/19 07:00 Pulse 82 11/22/19 07:00 Resp 18 11/22/19 07:00 BP 185/84 11/22/19 07:00 Pulse Ox 99 11/22/19 07:00 Intake & Output 11/21/19 11/22/19 11/22/19 18:59 06:59 18:59 Weight 142.882 kg Other: # Voids 1 1 # Bowel Movements 1 - Exam PHYSICAL EXAMINATION: Patient is lying in the bed comfortably, no acute distress, awake alert and oriented.. HEENT: Normocephalic. Neck is supple. Pupils reactive. Nostrils clear. Oral cavity is moist. Ears reveal no drainage. Neck reveals no JVD, carotid bruits, or thyromegaly. CHEST EXAMINATION: Trachea is central. Symmetrical expansion. Bibasilar dimin ished air entry. Lung dean clear to auscultation and percussion. CARDIAC: Normal S1, S2 with no gallops. No murmurs ABDOMEN: Soft. Midline incision is healing well. Bowel sounds present. Mild lower abdominal tenderness. No guarding no rigidity. Left-sided colostomy bag in place. No organomegaly. No abdominal bruits. Extremities: reveal no edema. No clubbing or cyanosis Neurologically awake, alert, oriented x3 with well-coordinated movements. No focal deficits noted Skin: No rash or skin lesions. Psychiatric: Coperative. Nonsuicidal Musculoskeletal: No joint swelling or deformity. Normal range of motion. - Labs CBC & Chem 7: 11/19/19 06:18 11/19/19 06:18 Assessment and Plan Assessment: Intractable nausea and vomiting due to proximal small bowel ileus. Improved now. Abdominal pain status post fall at home on his right side of the abdomen. CT abdomen showed extraluminal air collection is smaller than previous study. Right-sided abdominal wall hernia Hypertension uncontrolled Microcytic iron deficiency anemia Recent history of colonic obstruction status post open diverting loop colostomy at [facility] one month ago History of colon cancer status post colectomy with history of ileostomy and reversal Hyperlipidemia DVT prophylaxis with heparin subcu Plan: Patient will be continued on IV hydration and pain management with Dilaudid. Patient was started on clear liquid diet and advanced as tolerated.. Symptomatic management for nausea and vomiting. Will hold hydrochlorothiazide/triamterene due to volume depletion. Started on losartan 25 mg daily. Patient does have iron deficiency. Started on IV iron infusion while in the hospital. Given 3 doses. Patient is already taking ferrous sulfate pills at home. Monitor his H&H. Will continue to follow with you and further recommendations based on the clinical course. Time with Patient: Greater than 30
--- NOTE | 2019-12-03 00:30 | P.DS ---
Providers Date of admission: 11/18/19 12:01 Expected date of discharge: 11/22/19 Attending physician: Dru Lawson Consults: 11/18/19 12:00 Consult Physician Urgent Consulting Provider: Antonina Rodriguez Consult Reason/Comments: medical care Do you want consulting provider notified?: Yes Primary care physician: Physician Nonstaff Hospital Course: Discharge diagnosis Intractable nausea and vomiting due to proximal small bowel ileus. Improved now. Abdominal pain status post fall at home on his right side of the abdomen. CT abdomen showed extraluminal air collection is smaller than previous study. Right-sided abdominal wall hernia Hypertension uncontrolled Microcytic iron deficiency anemia Recent history of colonic obstruction status post open diverting loop colostomy at [facility] one month ago History of colon cancer status post colectomy with history of ileostomy and reversal Hyperlipidemia DVT prophylaxis with heparin subcu Hospital course Patient is a 59-year-old male with a known history of colon/rectal cancer status post colectomy, history of ileostomy placement and reversal, hypertension came to ER with the complaints of intractable nausea vomiting and abdominal pain. Patient had colonic obstruction about a month ago and was transferred to [facility] where he underwent divering loop colostomy. Patient initially presented to ER after he fell at home yesterday. Patient says that she fell on on the table and hit his right side of the abdomen. Patient presented to ER with abdominal pain. CT of the abdomen pelvis was done which showed extraluminal collection of air and soft tissue thickening in the presacral space is smaller than on the prior.. Inflammatory change along the midline incision likely postsurgical. Patient has a hernia on the right side of the abdomen. Patient was sent home with improvement in pain while in the ER. Patient present back to the hospital due to intractable nausea vomiting and abdominal pain. De nied any blood in the vomitus. Yellowish and bile colored. Denied any aspiration. No chest pain. Patient denied any fever or chills. No cough or sputum production. No diarrhea. No leg swelling. No headache or dizziness or lightheadedness. X-rays of the abdomen showed overall nonobstructive bowel gas pattern. WBC 9.0 and hemoglobin 9.6, MCV 76.5.,platelets 372, sodium 136 and potassium 3.6 and BUN 25 11/19/2019 Patient says that his nausea is better today. Wants to eat soft diet. Abdominal pain is still present but improved compared to yesterday. Still requiring IV pain medications. Hemoglobin level is 8.4. Patient will be started on IV iron 3 dose while in the hospital due to iron deficiency. No complaints of chest pain. No episodes of vomiting today. No shortness of breath. Potassium is 3.4 which is being replaced. Abdominal x-ray showed air fluid levels within the right side of the abdomen appears to be primarily within the colon suggesting progressive ileus. Anticipate discharge next 24-48 hours with more clinical improvement. 11/20/2019 Patient is complaining of abdominal pain still. Patient did have episode of emesis this morning. Patient lost his IV line last night and is requesting pain medications. Colostomy bag contents minimal liquid stool. CT of the abdomen pelvis was ordered. Otherwise patient is afebrile. No complaints of chest pain or shortness breath. No headache or dizziness or lightheadedness. 11/21/2019 Patient says that his abdominal pain is better today. Patient did have large bowel movement in the colostomy bag. Was started on diet and will be advanced as tolerated. Patient has been afebrile. Repeat CT abdomen showed no new changes. Abdominal x-ray done today is still showing ileus. Patient does have right lateral abdominal wall hernia. No chest pain or shortness of breath. No headache or dizziness or lightheadedness. 11/22/2019 Patient denied any complaints of chest pain or shortness of breath. Patient does have stool in the colostomy back. Nausea much improved. Still complains of right-sided abdominal pain but much improved. No headache or dizziness or lightheadedness. No acute overnight issues. Patient has been afebrile. Possible discharge home today. Patient left AMA before seen by surgery. Patient Condition at Discharge: Fair Plan - Discharge Summary New Discharge Prescriptions: Continue Loperamide HCl [Imodium A-D] 2 - 4 mg PO Q4H PRN PRN Reason: Loose Stool Diphenox-Atrop 2.5-0.025 mg [Lomotil] 1 tab PO TID PRN PRN Reason: Diarrhea Triamterene/Hydrochlorothiazid [Triamterene-Hctz 37.5-25 mg Tb] 1 tab PO DAILY Gabapentin [Neurontin] 300 mg PO TID Famotidine 20 mg PO BID Docusate Sodium [Dok] 100 mg PO DAILY PRN PRN Reason: Constipation Ferrous Gluconate 324 mg PO BID Simethicone Chew [Mylicon Chew] 80 mg PO BID PRN PRN Reason: GAS Discontinued Hydrocodone/Acetaminophen [[place] 10-325] 2 tab PO Q6HR PRN PRN Reason: Pain No Action HYDROcodone/APAP 10-325MG [[place] 10-325] 2 tab PO Q6HR PRN PRN Reason: Pain/Discomfort Discharge Medication List Loperamide HCl [Imodium A-D] 2 - 4 mg PO Q4H PRN 11/03/18 [History] Diphenox-Atrop 2.5-0.025 mg [Lomotil] 1 tab PO TID PRN 05/21/19 [History] Triamterene/Hydrochlorothiazid [Triamterene-Hctz 37.5-25 mg Tb] 1 tab PO DAILY 10/08/19 [History] Docusate Sodium [Dok] 100 mg PO DAILY PRN 11/18/19 [History] Famotidine 20 mg PO BID 11/18/19 [History] Ferrous Gluconate 324 mg PO BID 11/18/19 [History] Gabapentin [Neurontin] 300 mg PO TID 11/18/19 [History] Simethicone Chew [Mylicon Chew] 80 mg PO BID PRN 11/18/19 [History] HYDROcodone/APAP 10-325MG [[place] 10-325] 2 tab PO Q6HR PRN 12/02/19 [History] Follow up Appointment(s)/Referral(s): Dru Lawson MD [Medical Doctor] - 1 Week Nonstaff,Physician [Primary Care Provider] - 1-2 days Patient Instructions/Handouts: Low Fiber Diet (DC), Ileus (DC) Activity/Diet/Wound Care/Special Instructions: [facility]: #[phone] Discharge Disposition: Left Against Medical Advice
== END 2019-11-22 08:02 | disposition left against medical advice (07) | DRG 389 ==
LOC: EC 09:49 → 4SSUR 12:00 → OBSVTOIN 12:01 → 4SSUR 11-21 11:08
PROVIDERS: ADMIT Surgery; ATTEND Surgery
PROC: 05HF33Z Insertion of Infusion Device into Left Cephalic Vein, Percutaneous Approach (ICD-10-PCS; principal; 2019-11-20 12:30)
DX: K56.7 Ileus, unspecified (principal); K43.0 Incisional hernia with obstruction, without gangrene; D50.9 Iron deficiency anemia, unspecified; E78.5 Hyperlipidemia, unspecified; I10 Essential (primary) hypertension; W19.XXXA Unspecified fall, initial encounter; W22.03XA Walked into furniture, initial encounter; Y92.009 Unspecified place in unspecified non-institutional (private) residence as the place of occurrence of the external cause; Z79.899 Other long term (current) drug therapy; Z80.0 Family history of malignant neoplasm of digestive organs; Z82.49 Family history of ischemic heart disease and other diseases of the circulatory system; Z83.3 Family history of diabetes mellitus; Z85.048 Personal history of other malignant neoplasm of rectum, rectosigmoid junction, and anus; Z90.49 Acquired absence of other specified parts of digestive tract; Z93.3 Colostomy status
CPT/HCPCS: 36410; 36415; 74018; 74019; 74177; 76937; 80053; 81003; 82150; 82550; 82553; 83540; 83550; 83690; 84443; 84466; 84484; 85025; 85610; 85730; 87324; 93005; 96361; 96374; 96375; 96376; 99285

== ENCOUNTER 2019-12-01 09:17 | Observation (INO) | payer OTHER ==
[2019-12-01] MEDS ORDERED: SODIUM CHLORIDE 0.9% 500 ML 500 ML IV ONE (09:53)
[2019-12-01] MEDS ORDERED: HYDROmorphone 0.5 MG/0.5 ML SYRINGE IVP STA ×2 (09:53→12:35)
[2019-12-01] MEDS ORDERED: ONDANSETRON 4 MG/2 ML VIAL IVP STA ×3 (09:53→12:57)
[2019-12-01 10:25] LABS: Appearance,Urine Clear (Clear); Bilirubin,Urine Negative (Negative); Blood,Urine Negative (Negative); Color,Urine Yellow; Glucose,Urine (UA) Negative (Negative); Ketones,Urine Negative (Negative); Leukocyte Esterase,Urine Negative (Negative); Nitrite,Urine Negative (Negative); Protein,Urine Trace (Negative); Specific Gravity,Urine 1.023 (1.001-1.035); Urobilinogen,Urine <2.0 mg/dL (<2.0)
[2019-12-01 10:25] LABS: Anisocytosis Slight; Basophils % (A) 0 %; Eosinophils # (A) 0.1 k/uL (0-0.7); Eosinophils % (A) 1 %; HCT 35.6 % (39.0-53.0); Hypochromasia Moderate; Lymphocytes # (A) 0.8 k/uL (1.0-4.8); Lymphocytes % (A) 7 %; MCH 24.5 pg (25.0-35.0); MCHC 30.8 g/dL (31.0-37.0); MCV 79.5 fL (80.0-100.0); Mean Platelet Volume 6.8; Microcytosis Slight; Monocytes # (A) 0.5 k/uL (0-1.0); Monocytes % (A) 5 %; Neutrophils # (A) 9.2 k/uL (1.3-7.7); Neutrophils % (A) 86 %; Platelet Count 313 k/uL (150-450); RBC 4.48 m/uL (4.30-5.90); RDW 17.4 % (11.5-15.5); WBC 10.7 k/uL (3.8-10.6)
--- NOTE | 2019-12-01 10:31 | ED ---
Abdominal Pain HPI - General Source: patient Mode of arrival: wheelchair Limitations: physical limitation <Leigh Ann Fuentes - Last Filed: 12/01/19 14:38> <Dayanara Jones - Last Filed: 12/06/19 11:49> - General Chief Complaint: Abdominal Pain Stated Complaint: vomiting/stomach pain Time Seen by Provider: 12/01/19 09:35 - History of Present Illness Initial Comments: 59-year-old male presenting today for chief complaint of diffuse abdominal pain, vomiting x 1 day. Patient states she has had multiple abdominal surgeries within the past year. Last one approximately 1-1/2 months ago. Patient states that he has had decreased ostomy output and now has vomiting anytime he tries to eat. He states his profound nausea. Denies bloody output, dark output. Denies emesis chest pain shortness of breath. He states that the pain at time radiates to his testicles. Scrotal thickening on US no torsion. Patient CT no acute findings, appears stable. Dr. Lawson consulted who reviewed CT he states he does not see concerning findings from surgical standpoint. Patient lactic acid WNL. WBC within acceptable limits. Patient states he cannot take the pain/nausea after multiple does of medications and will be admitted for symptomatic control. Dr. Jones agreeable to this care plan and admission. (Leigh Ann Fuentes) - Related Data Home Medications Medication Instructions Recorded Confirmed Triamterene/Hydrochlorothiazid 1 tab PO DAILY 10/08/19 12/01/19 [Triamterene-Hctz 37.5-25 mg Tb] Famotidine 20 mg PO BID 11/18/19 12/01/19 Ferrous Gluconate 324 mg PO BID 11/18/19 12/01/19 Gabapentin [Neurontin] 300 mg PO TID 11/18/19 12/01/19 Simethicone Chew [Mylicon Chew] 80 mg PO BID PRN 11/18/19 12/01/19 Previous Rx's Medication Instructions Recorded HYDROcodone/APAP 10-325MG [[place] 2 each PO Q6H PRN #20 tab 12/03/19 10-325] Ondansetron [Zofran] 4 mg PO Q8HR PRN #60 tab 12/03/19 Polyethylene Glycol 3350 [Miralax] 17 gm PO BID PRN #527 gm 12/03/19 Allergies Allergy/AdvReac Type Severity Reaction Status Date / Time No Known Allergies Allergy Verified 12/01/19 12:04 Review of Systems ROS Other: All systems not noted in ROS Statement are negative. <Leigh Ann Fuentes - Last Filed: 12/01/19 14:38> ROS Other: All systems not noted in ROS Statement are negative. <Dayanara Jones - Last Filed: 12/06/19 11:49> ROS Statement: Those systems with pertinent positive or pertinent negative responses have been documented in the HPI. Past Medical History Past Medical History: Cancer Additional Past Medical History / Comment(s): rectal, back pain, rectal/colon cancer History of Any Multi-Drug Resistant Organisms: None Reported Past Surgical History: Appendectomy, Orthopedic Surgery Additional Past Surgical History / Comment(s): ileostomy with reversal, left elbow, colostomy Past Anesthesia/Blood Transfusion Reactions: No Reported Reaction Past Psychological History: No Psychological Hx Reported Smoking Status: Never smoker Past Alcohol Use History: Rare Past Drug Use History: None Reported - Past Family History Mother Family Medical History: Cancer, Diabetes Mellitus Additional Family Medical History / Comment(s): from liver cancer Father Family Medical History: Myocardial Infarction ([place]) <Leigh Ann Fuentes - Last Filed: 12/01/19 14:38> General Exam Limitations: physical limitation <Leigh Ann Fuentes - Last Filed: 12/01/19 14:38> - General Exam Comments Initial Comments: General: The patient is awake and alert,appears uncomfortable. Eye: +3 mm pupils are equal, round and reactive to light, extra-ocular movements are intact. No nystagmus. There is normal conjunctiva bilaterally. No signs of icterus. Ears, nose, mouth and throat: There are moist mucous membranes and no oral lesions. Neck: The neck is supple, there is no tenderness or JVD. Cardiovascular: There is a regular rate and rhythm. No murmur, rub or gallop is appreciated. Respiratory: Lungs are clear to auscultation, respirations are non-labored, breath sounds are equal. No wheezes, stridor, rales, or rhonchi. Gastrointestinal: Ostomy bag left side of abdomen, there is abdomen without masses or organomegaly noted. There is no rebound or guarding present. Musculoskeletal: Normal ROM, no tenderness. Strength 5/5. Sensation intact. Radial pulses equal bilaterally 2+. Neurological: A&O x 3. CN II-XII intact grossly, There are no obvious motor or sensory deficits. Coordination appears grossly intact. Speech is normal. Skin: Skin is warm and dry and no rashes or lesions are noted. No LE edema. Psychiatric: Cooperative, appropriate mood & affect, normal judgment. (Leigh Ann Fuentes) Course Vital Signs 12/01/19 12/01/19 12/01/19 09:25 11:26 14:23 Temperature 98.2 F Pulse Rate 103 H 74 98 Respiratory 18 16 18 Rate Blood Pressure 142/93 141/73 136/88 O2 Sat by Pulse 96 98 100 Oximetry Medical Decision Making - Lab Data Result diagrams: 12/01/19 10:01 12/01/19 10:01 <Leigh Ann Fuentes - Last Filed: 12/01/19 14:38> - Lab Data Result diagrams: 12/03/19 06:07 12/03/19 06:07 <Dayanara Jones - Last Filed: 12/06/19 11:49> - Medical Decision Making 59-year-old male presenting today for chief complaint of intractable developing nausea/abdominal pain ongoing for the past day. CT revealed no significant acute findings. We did discuss the case with Dr. Coyle who wanted patient medically admitted if he was unable to control symptoms in the emergency Department. Otherwise there is no surgical intervention warranted at this time. Patient states that he does not want to go home and does not feel safe he states that he'll be right back in the emergency department. I will admit intra ctable nausea and abdominal pain despite IV analgesics and and antiemetics. Dr. Jones who spoke with Dr Khanna is agreeable to admission and care plan. (Leigh Ann Fuentes) I was available for consultation in the emergency department. The history and physical exam were done by the midlevel provider. I was consulted for this patients care. I reviewed the case with the midlevel provider and based on their presentation of the patient, I agree with the assessment, medical decision making and plan of care as documented. Chart was dictated using [employer] dictation software. Attempts were made to correct any dictation errors however some typographical errors may persist. (Dayanara Jones) - Lab Data Lab Results 12/01/19 12/01/19 12/01/19 Range/Units 09:35 10:01 10:01 WBC 10.7 H (3.8-10.6) k/uL RBC 4.48 (4.30-5.90) m/uL Hgb 11.0 L (13.0-17.5) gm/dL Hct 35.6 L (39.0-53.0) % MCV 79.5 L (80.0-100.0) fL MCH 24.5 L (25.0-35.0) pg MCHC 30.8 L (31.0-37.0) g/dL RDW 17.4 H (11.5-15.5) % Plt Count 313 (150-450) k/uL Neutrophils % 86 % Lymphocytes % 7 % Monocytes % 5 % Eosinophils % 1 % Basophils % 0 % Neutrophils # 9.2 H (1.3-7.7) k/uL Lymphocytes # 0.8 L (1.0-4.8) k/uL Monocytes # 0.5 (0-1.0) k/uL Eosinophils # 0.1 (0-0.7) k/uL Basophils # 0.0 (0-0.2) k/uL Hypochromasia Moderate Anisocytosis Slight Microcytosis Slight Sodium 136 L (137-145) mmol/L Potassium 4.3 (3.5-5.1) mmol/L Chloride 102 (98-107) mmol/L Carbon Dioxide 22 (22-30) mmol/L Anion Gap 12 mmol/L BUN 20 (9-20) mg/dL Creatinine 0.90 (0.66-1.25) mg/dL Est GFR (CKD-EPI)AfAm >90 (>60 ml/min/1.73 sqM) Est GFR (CKD-EPI)NonAf >90 (>60 ml/min/1.73 sqM) Glucose 160 H (74-99) mg/dL Plasma Lactic Acid Gerry (0.7-2.0) mmol/L Calcium 10.0 (8.4-10.2) mg/dL Phosphorus 3.6 (2.5-4.5) mg/dL Magnesium 2.1 (1.6-2.3) mg/dL Total Bilirubin 0.3 (0.2-1.3) mg/dL AST 17 (17-59) U/L ALT 9 (4-49) U/L Alkaline Phosphatase 75 (38-126) U/L Total Protein 8.0 (6.3-8.2) g/dL Albumin 4.5 (3.5-5.0) g/dL Amylase 55 (30-110) U/L Lipase 30 (23-300) U/L Urine Color Yellow Urine Appearance Clear (Clear) Urine pH 5.0 (5.0-8.0) Ur Specific [place] 1.023 (1.001-1.035) Urine Protein Trace H (Negative) Urine Glucose (UA) Negative (Negative) Urine Ketones Negative (Negative) Urine Blood Negative (Negative) Urine Nitrite Negative (Negative) Urine Bilirubin Negative (Negative) Urine Urobilinogen <2.0 (<2.0) mg/dL Ur Leukocyte Esterase Negative (Negative) Acetone, Qual Negative (Negative) 12/01/19 12/03/19 12/03/19 Range/Units 12:24 06:07 06:07 WBC 4.5 (3.8-10.6) k/uL RBC 3.64 L (4.30-5.90) m/uL Hgb 9.0 L D (13.0-17.5) gm/dL Hct 29.1 L (39.0-53.0) % MCV 79.8 L (80.0-100.0) fL MCH 24.7 L (25.0-35.0) pg MCHC 30.9 L (31.0-37.0) g/dL RDW 17.4 H (11.5-15.5) % Plt Count 195 (150-450) k/uL Neutrophils % 65 % Lymphocytes % 21 % Monocytes % 11 % Eosinophils % 2 % Basophils % 0 % Neutrophils # 2.9 (1.3-7.7) k/uL Lymphocytes # 0.9 L (1.0-4.8) k/uL Monocytes # 0.5 (0-1.0) k/uL Eosinophils # 0.1 (0-0.7) k/uL Basophils # 0.0 (0-0.2) k/uL Hypochromasia Moderate Anisocytosis Slight Microcytosis Slight Sodium 134 L (137-145) mmol/L Potassium 4.2 (3.5-5.1) mmol/L Chloride 105 (98-107) mmol/L Carbon Dioxide 26 (22-30) mmol/L Anion Gap 3 mmol/L BUN 16 (9-20) mg/dL Creatinine 0.76 (0.66-1.25) mg/dL Est GFR (CKD-EPI)AfAm >90 (>60 ml/min/1.73 sqM) Est GFR (CKD-EPI)NonAf >90 (>60 ml/min/1.73 sqM) Glucose 115 H (74-99) mg/dL Plasma Lactic Acid Gerry 0.9 (0.7-2.0) mmol/L Calcium 8.7 (8.4-10.2) mg/dL Phosphorus (2.5-4.5) mg/dL Magnesium (1.6-2.3) mg/dL Total Bilirubin (0.2-1.3) mg/dL AST (17-59) U/L ALT (4-49) U/L Alkaline Phosphatase (38-126) U/L Total Protein (6.3-8.2) g/dL Albumin (3.5-5.0) g/dL Amylase (30-110) U/L Lipase (23-300) U/L Urine Color Urine Appearance (Clear) Urine pH (5.0-8.0) Ur Specific [place] (1.001-1.035) Urine Protein (Negative) Urine Glucose (UA) (Negative) Urine Ketones (Negative) Urine Blood (Negative) Urine Nitrite (Negative) Urine Bilirubin (Negative) Urine Urobilinogen (<2.0) mg/dL Ur Leukocyte Esterase (Negative) Acetone, Qual (Negative) Disposition Is patient prescribed a controlled substance at d/c from ED?: No Time of Disposition: 14:14 Decision to Admit Reason: Admit from EC Decision Date: 12/01/19 Decision Time: 14:14 <Leigh Ann Fuentes - Last Filed: 12/01/19 14:38> <Dayanara Jones - Last Filed: 12/06/19 11:49> Clinical Impression: Abdominal pain, Nausea & vomiting, Intractable abdominal pain Disposition: ADMITTED IP TO THIS [facility] Condition: Stable
[2019-12-01 10:40] LABS: ALT 9 U/L (4-49); AST 17 U/L (17-59); African American GFR (CKD) >90 (>60 ml/min/1.73 sqM); Albumin 4.5 g/dL (3.5-5.0); Alkaline Phosphatase 75 U/L (38-126); Amylase 55 U/L (30-110); Anion Gap 12 mmol/L; Blood Urea Nitrogen 20 mg/dL (9-20); Carbon Dioxide 22 mmol/L (22-30); Chloride 102 mmol/L (98-107); Glucose 160 mg/dL (74-99); Magnesium 2.1 mg/dL (1.6-2.3); Non-African American GFR(CKD) >90 (>60 ml/min/1.73 sqM); Phosphorus 3.6 mg/dL (2.5-4.5); Potassium 4.3 mmol/L (3.5-5.1); Sodium 136 mmol/L (137-145); Total Bilirubin 0.3 mg/dL (0.2-1.3)
--- NOTE | 2019-12-01 11:11 | CT ---
EXAMINATION TYPE: CT abdomen pelvis w con DATE OF EXAM: 12/01/2019 COMPARISON: 11/20/2019 HISTORY: Abdominal pain, acute nonlocalized CT DLP: 1923.4 mGycm Automated exposure control for dose reduction was used. TECHNIQUE: Helical acquisition of images was performed from the lung bases through the pelvis. CONTRAST: Performed without Oral Contrast and with IV Contrast, patient injected with 100 ml mL of Isovue 300. FINDINGS: LUNG BASES: Lung bases are clear. Persistent Bochdalek and Morgagni hernias. Initially seen faint rig ht middle lobe nodules not seen on today's exam. LIVER/GB: No significant abnormality is appreciated. No cholelithiasis on CT. PANCREAS: Pancreatic parenchyma atrophy of the pancreatic head and uncinate process. No ductal dilata tion seen. SPLEEN: No splenomegaly. ADRENALS: No nodularity or thickening. KIDNEYS: 1.2 cm right superior pole renal cyst. No hydronephrosis of either kidney. ADENOPATHY: No greater than 1 cm short axis lymph nodes seen in the abdomen or pelvis. OSSEOUS STRUCTURES: Advanced arthropathy of the right hip is seen with [id number] articulation and cranial lateral subluxation. Mild multilevel degenerative change of the spine. BOWEL: There remains a wide necked right paracentral is enteric fat, small bowel, and large bowel co ntaining ventral abdominal hernia with a neck measuring 8.3 cm. And surgical sutures are seen of one of the herniated loops of small bowel. Left mid abdominal colostomy is redemonstrated. Postsurgical f at stranding of the ventral lateral midline abdomen. Similar-appearing fat stranding of the near midl ine and left paracentral mesenteric fat such as on image 43. Rectosigmoid stent is present with air intraluminally and debris intraluminally. Mild fat stranding i s seen surrounding the stent although unchanged from the prior. Again there is perforation or sinus t ract of the superior aspect of the distal stent on sagittal image 85. This is also unchanged in the p rior and contiguous with abnormal soft tissue thickening of the presacral space. IMPRESSION: 1. Stable presacral soft tissue density with air seen extraluminally outside of the distal aspect of the rectosigmoid stent. Air could be loculated pneumoperitoneum or sinus tract to a presacral fluid c ollection/possible abscess in the appropriate clinical setting. However findings are unchanged from t he prior of 11/20/2019 and 11/17/2019. 2. Minimal fat stranding of the sigmoid colon and in the left paracentral mesentery also unchanged fr om the prior. Reactive fat stranding of the sigmoid colon is suspected and developing fat necrosis of the mesentery is suspected. 3. Similar large and small bowel containing right paracentral ventral hernia as well as diaphragmatic hernias.
[2019-12-01] MEDS ORDERED: PIPERACILLIN-TAZOBACTAM 3.375 GM in SODIUM CHLORIDE 0.9% 100 ML IVPB STA (11:27)
--- NOTE | 2019-12-01 12:31 | US ---
EXAMINATION TYPE: US scrotum with doppler. TECHNIQUE: Grayscale and color Doppler Duplex imaging performed of the scrotum. DATE OF EXAM: 12/01/2019 COMPARISON: NONE CLINICAL HISTORY: 59-year-old male testicular pain. FINDINGS: EXAM MEASUREMENTS: TESTICLES: Right Testicle: 4.7 X 2.1 X 2.9 cm Left Testicle: 4.2 X 2.0 X 2.9 cm The testicular parenchyma appears mildly heterogeneous bilaterally without focal lesion. EPIDIDYMIS HEAD: Right Epididymis: 1.0 cm Left Epididymis: 1.0 cm Doppler performed to assess for testicular vascularity; good bilateral color flow and waveforms are s een. There is no evidence of testicular torsion. Presence of hydroceles: No Presence of varicoceles: No Mild scrotal skin thickening. IMPRESSION: 1. Testicles are symmetric without hyperemia. Also, no sonographic evidence for testicular torsion. H owever, there is mild heterogeneity to the testicular parenchyma probably technical due to mild scrot al skin thickening. Follow-up as clinically indicated. 2. No sizable hydrocele or varicocele.
[2019-12-01] MEDS ORDERED: NALOXONE 0.4 MG/ML 1 ML VIAL IV PRN (14:12)
[2019-12-01] MEDS: SODIUM CHLORIDE 0.9% 1,000 ML IV SCH (14:21)
[2019-12-01] MEDS: HYDROmorphone 0.5 MG/0.5 ML SYRINGE IVP PRN ×3 (17:01→23:02)
[2019-12-01] MEDS: ONDANSETRON 4 MG/2 ML VIAL IVP PRN (19:35)
[2019-12-02] MEDS: SODIUM CHLORIDE 0.9% 1,000 ML IV SCH ×3 (00:59→19:24)
[2019-12-02] MEDS: HYDROmorphone 0.5 MG/0.5 ML SYRINGE IVP PRN ×4 (01:59→11:36)
[2019-12-02] MEDS: ONDANSETRON 4 MG/2 ML VIAL IVP PRN ×2 (03:52→11:42)
[2019-12-02] MEDS ORDERED: MAGNESIUM CITRATE 296 ML BOTTLE PO ONE (10:07)
--- NOTE | 2019-12-02 10:07 | P.GSCN ---
History of Present Illness Consult date: 12/02/19 Reason for Consult: Abdominal pain History of present illness: 59-year-old male known to our service. Patient with history of rectal carcinoma . Underwent low anterior resection. Developed a stricture at the anastomotic site. Developed a hernia at his temporary ileostomy site. Stricture was treated with a stent. Unfortunately the stent he has led to partial obstruction at the anastomosis. This resulted in the patient recently having a diverting loop colostomy at [facility] approximately 6 weeks ago. Patient was hospitalized 9 days ago with similar complaints of pain. He had fallen. Pain was more on the right side at that time. He did have episodes of nausea vomiting and decreased ostomy output at that time as well. His workup last visit did not demonstrate any definite obstruction at his large incisional hernia. His ostomy output improved during his last visit. He was tolerating a diet and actually left the hospital AGAINST MEDICAL ADVICE. Patient returns now with complaints of pain again. Decreased ostomy output and frequent episodes of vomiting. No witnessed vomiting in the hospital. Ostomy does have minimal loose stool. Patient states the stools he was having through the ostomy were larger and more firm. CAT scan from yesterday was reviewed. There is some formed stool in the transverse colon and I suspect the patient has issues with constipation contributing to his pain, decreased ostomy output, and nausea and vomiting. Review of Systems The patient denies any acute changes in vision or hearing, no dysphagia or odynophagia, no chest pain or shortness of breath, no dysuria or hematuria, no headache, no runny nose, no rectal bleeding or melena, no unexplained weight loss Past Medical History Past Medical History: Cancer, GERD/Reflux, Osteoarthritis (OA) Additional Past Medical History / Comment(s): Pt recently admitted to [facility] on 11/18/19 with a fall/struck R side abdomin/abdominal pain/vomiting/decrease ostomy function/incisional abdominal hernia. Other hx: Rectal cancer approximately 2 yrs ago with colectomy/ileostomy then reversal/chem pills and radiation, recent partial colonic obstruction-pt sent to [place] and had diverting loop colostomy, chronic low back pain, arthritis in multiple joints, neuropathy bilateral feet/toes and R hand, iron deficiency anemia. History of Any Multi-Drug Resistant Organisms: None Reported Past Surgical History: Appendectomy, Bowel Resection, Orthopedic Surgery, Tonsillectomy Additional Past Surgical History / Comment(s): Colectomy/ileostomy with reversal, diverting loop colostomy, colonoscopies, L elbow bursa surgery Past Anesthesia/Blood Transfusion Reactions: No Reported Reaction Past Psychological History: No Psychological Hx Reported Additional Psychological History / Comment(s): Pt resides in an apartment alone. He has home care thru [facility] but states they have not been very reliable. Pt has a cane which he uses prn. He drives. Smoking Status: Former smoker Past Alcohol Use History: Rare Additional Past Alcohol Use History / Comment(s): Pt started smoking as a teen and quit in 1998. Past Drug Use History: None Reported - Past Family History Mother Family Medical History: Cancer, Diabetes Mellitus Additional Family Medical History / Comment(s): from liver cancer Father Family Medical History: Myocardial Infarction ([place]) Additional Family Medical History / Comment(s): Pt has not spoken to his father in years and does not know much of his medical hx. Medications and Allergies Home Medications Medication Instructions Recorded Confirmed Type Loperamide HCl [Imodium A-D] 2 - 4 mg PO Q4H PRN 11/03/18 12/01/19 History Diphenox-Atrop 2.5-0.025 mg 1 tab PO TID PRN 05/21/19 12/01/19 History [Lomotil] Triamterene/Hydrochlorothiazid 1 tab PO DAILY 10/08/19 12/01/19 History [Triamterene-Hctz 37.5-25 mg Tb] Docusate Sodium [Dok] 100 mg PO DAILY PRN 11/18/19 12/01/19 History Famotidine 20 mg PO BID 11/18/19 12/01/19 History Ferrous Gluconate 324 mg PO BID 11/18/19 12/01/19 History Gabapentin [Neurontin] 300 mg PO TID 11/18/19 12/01/19 History Simethicone Chew [Mylicon Chew] 80 mg PO BID PRN 11/18/19 12/01/19 History oxyCODONE-APAP 10-325MG [Percocet 1 tab PO Q6H PRN 11/18/19 12/01/19 History 10-325 mg] Allergies Allergy/AdvReac Type Severity Reaction Status Date / Time No Known Allergies Allergy Verified 12/01/19 12:04 Surgical - Exam Vital Signs Temp Pulse Resp BP Pulse Ox 98.2 F 103 H 18 142/93 96 12/01/19 09:25 12/01/19 09:25 12/01/19 09:25 12/01/19 09:25 12/01/19 09:25 Physical exam: General: Well-developed, well-nourished HEENT: Normocephalic, sclerae nonicteric Abdomen: Mild tenderness diffusely, nondistended, ostomy appliance intact, minimal output Extremities: No edema Neuro: Alert and oriented Results - Labs 12/01/19 10:01 12/01/19 10:01 Abnormal Lab Results - Last 24 Hours (Table) 12/01/19 12/01/19 12/01/19 Range/Units 09:35 10:01 10:01 WBC 10.7 H (3.8-10.6) k/uL Hgb 11.0 L (13.0-17.5) gm/dL Hct 35.6 L (39.0-53.0) % MCV 79.5 L (80.0-100.0) fL MCH 24.5 L (25.0-35.0) pg MCHC 30.8 L (31.0-37.0) g/dL RDW 17.4 H (11.5-15.5) % Neutrophils # 9.2 H (1.3-7.7) k/uL Lymphocytes # 0.8 L (1.0-4.8) k/uL Sodium 136 L (137-145) mmol/L Glucose 160 H (74-99) mg/dL Urine Protein Trace H (Negative) Diabetes panel 12/01/19 Range/Units 10:01 Sodium 136 L (137-145) mmol/L Potassium 4.3 (3.5-5.1) mmol/L Chloride 102 (98-107) mmol/L Carbon Dioxide 22 (22-30) mmol/L BUN 20 (9-20) mg/dL Creatinine 0.90 (0.66-1.25) mg/dL Glucose 160 H (74-99) mg/dL Calcium 10.0 (8.4-10.2) mg/dL AST 17 (17-59) U/L ALT 9 (4-49) U/L Alkaline Phosphatase 75 (38-126) U/L Total Protein 8.0 (6.3-8.2) g/dL Albumin 4.5 (3.5-5.0) g/dL Calcium panel 12/01/19 Range/Units 10:01 Calcium 10.0 (8.4-10.2) mg/dL Phosphorus 3.6 (2.5-4.5) mg/dL Albumin 4.5 (3.5-5.0) g/dL Pituitary panel 12/01/19 Range/Units 10:01 Sodium 136 L (137-145) mmol/L Potassium 4.3 (3.5-5.1) mmol/L Chloride 102 (98-107) mmol/L Carbon Dioxide 22 (22-30) mmol/L BUN 20 (9-20) mg/dL Creatinine 0.90 (0.66-1.25) mg/dL Glucose 160 H (74-99) mg/dL Calcium 10.0 (8.4-10.2) mg/dL Adrenal panel 12/01/19 Range/Units 10:01 Sodium 136 L (137-145) mmol/L Potassium 4.3 (3.5-5.1) mmol/L Chloride 102 (98-107) mmol/L Carbon Dioxide 22 (22-30) mmol/L BUN 20 (9-20) mg/dL Creatinine 0.90 (0.66-1.25) mg/dL Glucose 160 H (74-99) mg/dL Calcium 10.0 (8.4-10.2) mg/dL Total Bilirubin 0.3 (0.2-1.3) mg/dL AST 17 (17-59) U/L ALT 9 (4-49) U/L Alkaline Phosphatase 75 (38-126) U/L Total Protein 8.0 (6.3-8.2) g/dL Albumin 4.5 (3.5-5.0) g/dL Assessment and Plan (1) Abdominal pain Narrative/Plan: 59-year-old male with ongoing issues with abdominal pain. Suspect his current issues are exacerbated by constipation. We'll provide partial dose of magnesium citrate. Will evaluate his ostomy site with ostomy nurse later today or tomorrow. We believe he may still have a bridge present beneath the loop ostomy. Continue optimizing pain control. No surgical intervention planned at this time. Current Visit: Yes Status: Acute Code(s): R10.9 - UNSPECIFIED ABDOMINAL PAIN SNOMED Code(s): 78779596
[2019-12-02] MEDS ORDERED: KETOROLAC 30 MG/ML 1 ML VIAL IVP PRN ×2 (11:07→11:30)
[2019-12-02] MEDS ORDERED: DOCUSATE 100 MG CAP PO PRN (11:09)
[2019-12-02] MEDS ORDERED: SIMETHICONE 80 MG CHEWABLE PO PRN (11:09)
[2019-12-02] MEDS ORDERED: oxyCODONE-APAP 10-325MG 1 EACH TAB PO PRN (11:09)
[2019-12-02 11:32] VITALS: BMI 46.0
--- NOTE | 2019-12-02 11:49 | P.HPIM ---
History of Present Illness 59-year-old the female had a history of rectal carcinoma underwent anterior resection in the past which was subsequently complicated by obstruction at the anastomotic site patient underwent a colostomy after that. Patient was recently discharged from the hospital actually left AGAINST MEDICAL ADVICE came in with complaints of severe abdominal pain without any output from the ostomy CAT scan of the abdomen was opted which showed some pneumoperitoneum from his previous surgeries which is not new. Patient had very minimal stool last night. Patient is on multiple medications that can cause constipation including the very high doses of narcotics at home in spite of extensive counseling patient still doesn't want to quit taking narcotics patient is also on Lomotil and Imodium apparently has not been taking his medications. Patient was evaluated by general surgery and they started him on magnesium citrate. Patient had multiple episodes of vomiting at home no vomiting here. Patient was comparing of severe abdominal pain mostly in the left lower quadrant area where she where he has a colostomy bag. Patient is morbidly obese. Review of Systems REVIEW OF SYSTEMS: CONSTITUTIONAL: No fever, no malaise, no fatigue. HEENT: No recent visual problems or hearing problems. Denied any sore throat. CARDIOVASCULAR: No chest pain, orthopnea, PND, no palpitations, no syncope. PULMONARY: No shortness of breath, no cough, no hemoptysis. GASTROINTESTINAL: As mentioned in HPI NEUROLOGICAL: No headaches, no weakness, no numbness. HEMATOLOGICAL: Denies any bleeding or petechiae. GENITOURINARY: Denies any burning micturition, frequency, or urgency. MUSCULOSKELETAL/RHEUMATOLOGICAL: Denies any joint pain, swelling, or any muscle pain. ENDOCRINE: Denies any polyuria or polydipsia. The rest of the 14-point review of systems is negative. Past Medical History Past Medical History: Cancer, GERD/Reflux, Osteoarthritis (OA) Additional Past Medical History / Comment(s): Pt recently admitted to [facility] on 11/18/19 with a fall/struck R side abdomin/abdominal pain/vomiting/decrease ostomy function/incisional abdominal hernia. Other hx: Rectal cancer approximately 2 yrs ago with colectomy/ileostomy then reversal/chem pills and radiation, recent partial colonic obstruction-pt sent to [facility] and had diverting loop colostomy, chronic low back pain, arthritis in multiple joints, neuropathy bilateral feet/toes and R hand, iron deficiency anemia. History of Any Multi-Drug Resistant Organisms: None Reported Past Surgical History: Appendectomy, Bowel Resection, Orthopedic Surgery, Tonsillectomy Additional Past Surgical History / Comment(s): Colectomy/ileostomy with reversal, diverting loop colostomy, colonoscopies, L elbow bursa surgery Past Anesthesia/Blood Transfusion Reactions: No Reported Reaction Past Psychological History: No Psychological Hx Reported Additional Psychological History / Comment(s): Pt resides in an apartment alone. He has home care thru [facility] but states they have not been very reliable. Pt has a cane which he uses prn. He drives. Smoking Status: Former smoker Past Alcohol Use History: Rare Additional Past Alcohol Use History / Comment(s): Pt started smoking as a teen and quit in 1998. Past Drug Use History: None Reported - Past Family History Mother Family Medical History: Cancer, Diabetes Mellitus Additional Family Medical History / Comment(s): from liver cancer Father Family Medical History: Myocardial Infarction ([place]) Additional Family Medical History / Comment(s): Pt has not spoken to his father in years and does not know much of his medical hx. Medications and Allergies Home Medications Medication Instructions Recorded Confirmed Type Loperamide HCl [Imodium A-D] 2 - 4 mg PO Q4H PRN 11/03/18 12/01/19 History Diphenox-Atrop 2.5-0.025 mg 1 tab PO TID PRN 05/21/19 12/01/19 History [Lomotil] Triamterene/Hydrochlorothiazid 1 tab PO DAILY 10/08/19 12/01/19 History [Triamterene-Hctz 37.5-25 mg Tb] Docusate Sodium [Dok] 100 mg PO DAILY PRN 11/18/19 12/01/19 History Famotidine 20 mg PO BID 11/18/19 12/01/19 History Ferrous Gluconate 324 mg PO BID 11/18/19 12/01/19 History Gabapentin [Neurontin] 300 mg PO TID 11/18/19 12/01/19 History Simethicone Chew [Mylicon Chew] 80 mg PO BID PRN 11/18/19 12/01/19 History oxyCODONE-APAP 10-325MG [Percocet 1 tab PO Q6H PRN 11/18/19 12/01/19 History 10-325 mg] Allergies Allergy/AdvReac Type Severity Reaction Status Date / Time No Known Allergies Allergy Verified 12/01/19 12:04 Physical Exam Vitals: Vital Signs Temp Pulse Pulse Resp BP BP Pulse Ox 12/02/19 05:00 98.1 F 70 18 134/70 98 12/01/19 21:00 98.3 F 80 16 148/82 97 12/01/19 17:01 98.2 F 86 17 125/78 99 12/01/19 14:23 98 18 136/88 100 Intake and Output 12/01/19 12/02/19 12/02/19 22:59 06:59 14:59 Intake Total 980 800 Balance 980 800 Intake: Intake, IV Titration 400 800 Amount Sodium Chloride 0.9% 1, 400 800 000 ml @ 100 mls/hr IV . Q10H [facility] Rx#:[id number] Oral 580 Other: Voiding Method Toilet Weight 141.521 kg 141.521 kg PHYSICAL EXAMINATION: GENERAL: The patient is alert and oriented x3, not in any acute distress. Obese HEENT: Pupils are round and equally reacting to light. EOMI. No scleral icterus. No conjunctival pallor. Normocephalic, atraumatic. No pharyngeal erythema. No thyromegaly. CARDIOVASCULAR: S1 and S2 present. No murmurs, rubs, or gallops. PULMONARY: Chest is clear to auscultation, no wheezing or crackles. ABDOMEN: Soft, patient has an intact colostomy with sluggish bowel sounds and tenderness MUSCULOSKELETAL: No joint swelling or deformity. EXTREMITIES: No cyanosis, clubbing, or pedal edema. NEUROLOGICAL: Gross neurological examination did not reveal any focal deficits. SKIN: No rashes. Results CBC & Chem 7: 12/01/19 10:01 12/01/19 10:01 Thrombosis Risk Factor Assmnt - Choose All That Apply Any of the Below Risk Factors Present?: Yes Each Factor Represents 1 point: Age 41-60 years, Obesity (BMI >25) Other Risk Factors: Yes Each Risk Factor Represents 2 Points: Malignancy Other congenital or acquired thrombophilia - If yes, enter type in comment: No Thrombosis Risk Factor Assessment Total Risk Factor Score: 4 Thrombosis Risk Factor Assessment Level: Moderate Risk Assessment and Plan Plan: -Abdominal pain secondary to constipation: Patient was started on magnesium citrate, Dilaudid will be discontinued patient was started on his home dose of [place] and alert Toradol in spite of extensive counseling patient still wants to take his [place]. Patient will be continued on IV fluids -Rectal sigmoid cancer: For which patient follows with oncology as an outpatient. -Morbid obesity -Gastroesophageal reflux disease -Peripheral neuropathy from his chronic back pain from his obesity -Hypertension hold off on diuretics as patient is actually receiving IV fluids at this time -DVT prophylaxis with Lovenox subcutaneous
[2019-12-02] MEDS: HYDROcodone/APAP 10-325MG 1 EACH TAB PO PRN ×2 (13:17→19:24)
[2019-12-02] MEDS: ENOXAPARIN 40 MG/0.4 ML SYRINGE SQ SCH (16:27)
[2019-12-02] MEDS: GABAPENTIN 300 MG CAP PO SCH ×2 (16:27→22:59)
[2019-12-02] MEDS: FAMOTIDINE 20 MG TAB PO SCH (19:25)
[2019-12-03] MEDS: HYDROcodone/APAP 10-325MG 1 EACH TAB PO PRN ×2 (01:37→08:15)
[2019-12-03] MEDS: ONDANSETRON 4 MG/2 ML VIAL IVP PRN (01:38)
[2019-12-03 07:35] LABS: African American GFR (CKD) >90 (>60 ml/min/1.73 sqM); Anion Gap 3 mmol/L; Blood Urea Nitrogen 16 mg/dL (9-20); Calcium 8.7 mg/dL (8.4-10.2); Carbon Dioxide 26 mmol/L (22-30); Chloride 105 mmol/L (98-107); Glucose 115 mg/dL (74-99); Non-African American GFR(CKD) >90 (>60 ml/min/1.73 sqM); Potassium 4.2 mmol/L (3.5-5.1); Sodium 134 mmol/L (137-145)
[2019-12-03 08:09] LABS: Anisocytosis Slight; Basophils % (A) 0 %; Eosinophils # (A) 0.1 k/uL (0-0.7); Eosinophils % (A) 2 %; HCT 29.1 % (39.0-53.0); Hypochromasia Moderate; Lymphocytes # (A) 0.9 k/uL (1.0-4.8); Lymphocytes % (A) 21 %; MCH 24.7 pg (25.0-35.0); MCHC 30.9 g/dL (31.0-37.0); MCV 79.8 fL (80.0-100.0); Mean Platelet Volume 7.9; Microcytosis Slight; Monocytes # (A) 0.5 k/uL (0-1.0); Monocytes % (A) 11 %; Neutrophils # (A) 2.9 k/uL (1.3-7.7); Neutrophils % (A) 65 %; Platelet Count 195 k/uL (150-450); RBC 3.64 m/uL (4.30-5.90); RDW 17.4 % (11.5-15.5); WBC 4.5 k/uL (3.8-10.6)
[2019-12-03] MEDS: GABAPENTIN 300 MG CAP PO SCH (08:16)
[2019-12-03] MEDS: ENOXAPARIN 40 MG/0.4 ML SYRINGE SQ SCH (08:16)
[2019-12-03] MEDS: FAMOTIDINE 20 MG TAB PO SCH (08:16)
[2019-12-03] MEDS: SODIUM CHLORIDE 0.9% 1,000 ML IV SCH (08:20)
--- NOTE | 2019-12-03 10:46 | P.PN ---
Subjective Progress Note Date: 12/03/19 Principal diagnosis: Abdominal pain Patient evaluated at the bedside with ostomy nurse. No nausea vomiting overnight. Pain is improved. He did have a large volume of liquid stool through the colostomy. Labs noted. Objective - Vital Signs Vital signs: Vital Signs Temp 97.8 F 12/03/19 05:00 Pulse 77 12/03/19 08:40 Resp 18 12/03/19 08:40 BP 133/83 12/03/19 05:00 Pulse Ox 100 12/03/19 05:00 Intake & Output 12/02/19 12/03/19 12/03/19 18:59 06:59 18:59 Intake Total 1200 1100 Output Total 100 0 Balance 1100 1100 0 Weight 141.521 kg Intake: Intake, IV Titration 800 1100 Amount Sodium Chloride 0.9% 1, 800 1100 000 ml @ 100 mls/hr IV . Q10H [facility] Rx#:[id number] Oral 400 Output: Stool 100 0 Other: Voiding Method Toilet Toilet - Exam Abdomen: Soft, nondistended, mild tenderness, ostomy bag removed, no peristomal skin excoriation, no bridge in place, ostomy itself retracted somewhat, digital evaluation of proximal and distal limb reveal no obstruction for a distance of approximately 5 cm, no hard stools encountered - Labs CBC & Chem 7: 12/03/19 06:07 12/03/19 06:07 Labs: Abnormal Lab Results - Last 24 Hours (Table) 12/03/19 12/03/19 Range/Units 06:07 06:07 RBC 3.64 L (4.30-5.90) m/uL Hgb 9.0 L D (13.0-17.5) gm/dL Hct 29.1 L (39.0-53.0) % MCV 79.8 L (80.0-100.0) fL MCH 24.7 L (25.0-35.0) pg MCHC 30.9 L (31.0-37.0) g/dL RDW 17.4 H (11.5-15.5) % Lymphocytes # 0.9 L (1.0-4.8) k/uL Sodium 134 L (137-145) mmol/L Glucose 115 H (74-99) mg/dL Microbiology - Last 24 Hours (Table) 12/01/19 12:24 Blood Culture - Preliminary Blood No Growth after 24 hours Assessment and Plan (1) Abdominal pain Narrative/Plan: Continue oral analgesics. Increase diet. May discharge her tolerates. Stressed to the patient that daily stool softeners and increased hydration is required post discharge. Prescription for Zofran will be provided. Current Visit: Yes Status: Acute Code(s): R10.9 - UNSPECIFIED ABDOMINAL PAIN SNOMED Code(s): 42876849
[2019-12-03 11:47] VITALS: BP 161/81; PULSE 68; RESP 17; TEMP 98
--- NOTE | 2019-12-03 12:49 | P.DS ---
Providers Date of admission: 12/03/19 08:51 Expected date of discharge: 12/03/19 Attending physician: Jered Dykes Primary care physician: Physician Nonstaff Hospital Course: Final Diagnosis -Abdominal pain secondary to constipation -Rectal sigmoid cancer -Morbid obesity -Gastroesophageal reflux disease -Peripheral neuropathy from his chronic back pain from his obesity -Hypertension -DVT prophylaxis Discharge disposition Patient is being discharged in a stable condition with guarded prognosis to home and will have [facility] setting. Patient will follow- up with Dr. lawson in the outpatient setting along with primary care provider upon discharge. Total time taken 35 minutes. History of present illness This is a 59-year-old male who was recently admitted with severe abdominal pain without any output from the ostomy and was being closely monitored. Patient was seen and evaluated Dr. Lawson. Patient was also seen and thoroughly educated by the ileostomy nurse Fanny Villarreal. Patient states he had a horrible experience with [facility] and is requesting [facility] upon discharge. Patient is also requesting a hospital bed due to his recent surgeries and cancer and inability to get in and out of his own bed. Patient also chronically takes a lot of pain medications which is most likely the cause of constipation and discussed with the patient at length about minimizing those medications. Patient also instructed to discontinue Lomotil and Imodium and was given a prescription for MiraLAX and is to continue with his daily. Patient also instructed to increase his oral intake and activity as tolerated and not just lay in the bed all day. Patient had some stool output that was yellowish brown in the ostomy bag with no hard stool noted and is instructed to continue with a low fiber diet. Patient will follow-up with Dr. lawson in the outpatient setting in 1-2 weeks. Currently no reports of chest pain, palpitations, or shortness of breath. Patient is afebrile. No reports of nausea or vomiting and patient is tolerating diet. Patient will be discharged home this afternoon. On exam vital signs are stable. Temp is 98F, pulse is 68, respirations are 17, blood pressure is 161/81, oxygen saturation is 98% on room air. Cardio S1, S2 are present. Respiratory system shows clear to auscultation. Abdomen is soft, obese, and nontender. Left side ostomy noted with brownish yellow stool. Nervous system shows no focal deficits. Please refer to medication reconciliation sheet for a list of medications. Health Concerns: Colostomy Care recommendations Please refer to detailed notes in Colostomy care instructions for Home Care Last pouching system change: 12.02.2019 Current ostomy Care Instructions as of 12.02.2019: No sting prep to peristomal skin (around the stoma) ([facility]) Mandy seal around stoma (5 from hospital) Additional Mandy into skin creases Convatec flange #[id number] (May need additional convex flange) (4 from [facility]) [facility]c [id number] Drain the pouch in the bathroom when the pouch is 1/2 to 1/3 full Change the entire pouching system every 3-5 days unless otherwise directed by your doctor Best time of the day to change as a routine pouching system change is in the lead etl developer Mr Sevilla is receiving ostomy care supplies from [facility] and also samples will be sent from [facility] [place] directly to home in 5-7 days Home Health please establish potential new script for osotmy supplies as Mr Sevilla progresses and what works for his ostomy care the best Patient Condition at Discharge: Stable Plan - Discharge Summary Discharge Rx Participant: No New Discharge Prescriptions: New Ondansetron [Zofran] 4 mg PO Q8HR PRN #60 tab PRN Reason: Nausea And Vomiting Polyethylene Glycol 3350 [Miralax] 17 gm PO BID PRN #527 gm PRN Reason: Constipation HYDROcodone/APAP 10-325MG [[place] 10-325] 2 each PO Q6H PRN #20 tab PRN Reason: Pain Continue Triamterene/Hydrochlorothiazid [Triamterene-Hctz 37.5-25 mg Tb] 1 tab PO DAILY Gabapentin [Neurontin] 300 mg PO TID Famotidine 20 mg PO BID Ferrous Gluconate 324 mg PO BID Simethicone Chew [Mylicon Chew] 80 mg PO BID PRN PRN Reason: GAS Discontinued Loperamide HCl [Imodium A-D] 2 - 4 mg PO Q4H PRN PRN Reason: Loose Stool Diphenox-Atrop 2.5-0.025 mg [Lomotil] 1 tab PO TID PRN PRN Reason: Diarrhea Docusate Sodium [Dok] 100 mg PO DAILY PRN PRN Reason: Constipation HYDROcodone/APAP 10-325MG [[place] 10-325] 2 tab PO Q6HR PRN PRN Reason: Pain/Discomfort Discharge Medication List Triamterene/Hydrochlorothiazid [Triamterene-Hctz 37.5-25 mg Tb] 1 tab PO DAILY 10/08/19 [History] Famotidine 20 mg PO BID 11/18/19 [History] Ferrous Gluconate 324 mg PO BID 11/18/19 [History] Gabapentin [Neurontin] 300 mg PO TID 11/18/19 [History] Simethicone Chew [Mylicon Chew] 80 mg PO BID PRN 11/18/19 [History] HYDROcodone/APAP 10-325MG [[place] 10-325] 2 each PO Q6H PRN #20 tab 12/03/19 [Rx] Ondansetron [Zofran] 4 mg PO Q8HR PRN #60 tab 12/03/19 [Rx] Polyethylene Glycol 3350 [Miralax] 17 gm PO BID PRN #527 gm 12/03/19 [Rx] Follow up Appointment(s)/Referral(s): Dru Lawson MD [Medical Doctor] - 12/10/19 11:30 am (This is a phone appointment Dr. Lawson will be calling you at this time, the number may come up as blocked) [facility],Equipment [NON-STAFF] - [facility], [NON-STAFF] - Patient Instructions/Handouts: Hydrocodone/Acetaminophen (By mouth), Ondansetron (By mouth), Polyethylene Glycol 3350 (By mouth), Abdominal Pain (ED) Activity/Diet/Wound Care/Special Instructions: [facility] will deliver a hospital bed to patient's house after discharge. DIET lOW FIBER Activity limited until seen by Dr. Ontiveros Disposition: HOME WITH HOME HEALTH SERVICES
== END 2019-12-03 12:48 | disposition home health service (06) ==
LOC: EC 09:17 → 5NMEDONC 15:54 → OBSVTOIN 12-03 08:51 → INTOOBSV 12-03 08:51 → UNDODISIN 12-03 12:48
PROVIDERS: ADMIT Internal Medicine; ATTEND Internal Medicine
DX: K59.00 Constipation, unspecified (principal); Z93.3 Colostomy status; K21.9 Gastro-esophageal reflux disease without esophagitis; G62.9 Polyneuropathy, unspecified; D50.9 Iron deficiency anemia, unspecified; G89.29 Other chronic pain; M54.5 Low back pain; K43.9 Ventral hernia without obstruction or gangrene; K44.9 Diaphragmatic hernia without obstruction or gangrene; M19.90 Unspecified osteoarthritis, unspecified site; E66.01 Morbid (severe) obesity due to excess calories; Z68.42 Body mass index [BMI] 45.0-49.9, adult; I10 Essential (primary) hypertension; Z91.14 Patient's other noncompliance with medication regimen; Z79.891 Long term (current) use of opiate analgesic; Z79.899 Other long term (current) drug therapy; Z90.49 Acquired absence of other specified parts of digestive tract; Z98.890 Other specified postprocedural states; Z85.048 Personal history of other malignant neoplasm of rectum, rectosigmoid junction, and anus; Z87.891 Personal history of nicotine dependence; Z92.3 Personal history of irradiation; Z91.81 History of falling; Z82.49 Family history of ischemic heart disease and other diseases of the circulatory system; Z83.3 Family history of diabetes mellitus; Z80.0 Family history of malignant neoplasm of digestive organs
CPT/HCPCS: 96376 ×4; 96361 ×2; 96366 ×2; 96372 ×2; 96375 ×2; 96365; 99285; 36415; 80053; 80048; 82150; 82009; 83605; 83690; 83735; 84100; 85025 ×2; 81003; 87040; 93975; 76870; 74177; G0378 ×3; J2543; J2405 ×3; J1650 ×2; J1885; J1170 ×2; Q9967; 96374

== ENCOUNTER 2019-12-13 21:06 | Inpatient (IN) | payer OTHER ==
[2019-12-13] MEDS ORDERED: SODIUM CHLORIDE 0.9% 1,000 ML IV STA (21:21)
[2019-12-13] MEDS ORDERED: HYDROmorphone 1 MG/ML 1 ML SYRINGE IVP STA ×2 (21:21→22:59)
[2019-12-13] MEDS ORDERED: diphenhydrAMINE 50 MG/ML 1 ML VIAL IVP STA (21:21)
[2019-12-13] MEDS ORDERED: ONDANSETRON 4 MG/2 ML VIAL IVP STA (21:21)
--- NOTE | 2019-12-13 21:49 | ED ---
Abdominal Pain HPI - General Source: patient Mode of arrival: wheelchair Limitations: no limitations <Magdalena Altamirano - Last Filed: 12/13/19 23:38> <Dayanara Jones - Last Filed: 12/15/19 23:40> - General Chief Complaint: Abdominal Pain Stated Complaint: Vomiting Time Seen by Provider: 12/13/19 21:14 - History of Present Illness Initial Comments: 59-year-old male patient with past medical history significant for rectal cancer with colostomy placed 5 weeks ago presents to the emergency department today for evaluation of right lower abdominal pain. Patient also reporting vomiting for the last 3-4 days. States he is unable to keep down any food or fluids. He is having minimal output in his colostomy. Denies any bloody or black output. Patient states he has been having similar symptoms including the abdominal pain and vomiting intermittently over the last 2 years. Patient states that he is having chills but denies any fever. Denies any chest pain or shortness of breath. Denies cough or congestion. Patient did speak with his surgeon Dr. Lawson prior to coming in and states that he wanted him admitted. Patient denies any recent rash, cough, back pain, numbness, tingling, dizziness, weakness, hematuria, dysuria, urinary urgency, urinary frequency, headache, visual changes, or any other complaints. (Magdalena Altamirano) - Related Data Home Medications Medication Instructions Recorded Confirmed Triamterene/Hydrochlorothiazid 1 tab PO DAILY 10/08/19 12/14/19 [Triamterene-Hctz 37.5-25 mg Tb] Famotidine 20 mg PO BID PRN 11/18/19 12/14/19 Simethicone Chew [Mylicon Chew] 80 mg PO BID PRN 11/18/19 12/14/19 Docusate [Colace] 100 mg PO DAILY PRN 12/14/19 12/14/19 HYDROcodone/APAP 10-325MG [[place] 2 tab PO Q6H PRN 12/14/19 12/14/19 10-325] Ondansetron [Zofran ODT] 4 mg PO Q6H PRN 12/14/19 12/14/19 Previous Rx's Medication Instructions Recorded Polyethylene Glycol 3350 [Miralax] 17 gm PO BID PRN #527 gm 12/03/19 Allergies Allergy/AdvReac Type Severity Reaction Status Date / Time No Known Allergies Allergy Verified 12/14/19 09:08 Review of Systems ROS Other: All systems not noted in ROS Statement are negative. <Magdalena Altamirano - Last Filed: 12/13/19 23:38> ROS Other: All systems not noted in ROS Statement are negative. <Dayanara Jones - Last Filed: 12/15/19 23:40> ROS Statement: Those systems with pertinent positive or pertinent negative responses have been documented in the HPI. Past Medical History Past Medical History: Cancer, GERD/Reflux, Osteoarthritis (OA) Additional Past Medical History / Comment(s): Pt recently admitted to [facility] on with a fall/struck R side abdomin/abdominal pain/vomiting/decrease ostomy function/incisional abdominal hernia. Other hx: Rectal cancer approximately 2 yrs ago with colectomy/ileostomy then reversal/chem pills and radiation, recent partial colonic obstruction-pt sent to [place] and had diverting loop colostomy, chronic low back pain, arthritis in multiple joints, neuropathy bilateral feet/toes and R hand, iron deficiency anemia. History of Any Multi-Drug Resistant Organisms: None Reported Past Surgical History: Appendectomy, Bowel Resection, Orthopedic Surgery, Tonsillectomy Additional Past Surgical History / Comment(s): Colectomy/ileostomy with reversal, diverting loop colostomy, colonoscopies, L elbow bursa surgery Past Anesthesia/Blood Transfusion Reactions: No Reported Reaction Past Psychological History: No Psychological Hx Reported Smoking Status: Former smoker Past Alcohol Use History: Rare Past Drug Use History: None Reported - Past Family History Mother Family Medical History: Cancer, Diabetes Mellitus Additional Family Medical History / Comment(s): from liver cancer Father Family Medical History: Myocardial Infarction ([place]) Additional Family Medical History / Comment(s): Pt has not spoken to his father in years and does not know much of his medical hx. <Magdalena Altamirano - Last Filed: 12/13/19 23:38> General Exam Limitations: no limitations General appearance: alert, in no apparent distress, other (This is a well-developed, well-nourished adult male patient in mild distress related to pain. Vital signs upon presentation are temperature 98.2F, pulse 107, respirations 18, blood pressure 154/90, pulse ox 99% on room air.) Eye exam: Present: normal appearance, PERRL, EOMI. Absent: scleral icterus, conjunctival injection, periorbital swelling ENT exam: Present: normal exam, normal oropharynx, mucous membranes moist Respiratory exam: Present: normal lung sounds bilaterally. Absent: respiratory distress, wheezes, rales, rhonchi, stridor Cardiovascular Exam: Present: regular rate, normal rhythm, normal heart sounds. Absent: systolic murmur, diastolic murmur, rubs, gallop, clicks GI/Abdominal exam: Present: soft, tenderness (Tenderness over the entirety of the abdomen), normal bowel sounds. Absent: distended, guarding, rebound, rigid Neurological exam: Present: alert, oriented X3, CN II-XII intact Psychiatric exam: Present: normal affect, normal mood Skin exam: Present: warm, dry, intact, normal color. Absent: rash <Magdalena Altamirano - Last Filed: 12/13/19 23:38> Course Vital Signs 12/13/19 12/13/19 21:07 23:09 Temperature 98.2 F Pulse Rate 107 H 91 Respiratory 18 18 Rate Blood Pressure 154/90 118/69 O2 Sat by Pulse 99 99 Oximetry Medical Decision Making - Lab Data Result diagrams: 12/13/19 21:32 12/13/19 21:32 - EKG Data -: EKG Interpreted by Ma - Radiology Data Radiology results: report reviewed, image reviewed <Magdalena Altamirano - Last Filed: 12/13/19 23:38> - Lab Data Result diagrams: 12/13/19 21:32 12/13/19 21:32 <Dayanara Jones - Last Filed: 12/15/19 23:40> - Medical Decision Making 59-year-old male patient presents to the emergency department today for evaluation of abdominal pain and vomiting. Physical examination did reveal generalized abdominal tenderness. Minimal output in his colostomy. Vital signs were stable with no major abnormalities. Labs reviewed and are relatively unremarkable. Patient continued to have pain and vomiting. He will be admitted for intractable nausea and vomiting. Dr. Lawson will be consulted. Patient is agreeable to this plan. He was admitted to Dr. Dykes on 12/03/19, he will be returned to this service. (Bantle,Magdalena M) I was available for consultation in the emergency department. The history and physical exam were done by the midlevel provider. I was consulted for this patients care. I reviewed the case with the midlevel provider and based on their presentation of the patient, I agree with the assessment, medical decision making and plan of care as documented. Chart was dictated using [email or web address] dictation software. Attempts were made to correct any dictation errors however some typographical errors may persist. Patient was seen during a national state of emergency due to the Covid-19 pandemic. (Dayanara Jones) - Lab Data Lab Results 12/13/19 12/13/19 12/13/19 Range/Units 21:32 21:32 21:32 WBC 9.6 (3.8-10.6) k/uL RBC 4.91 (4.30-5.90) m/uL Hgb 12.2 L D (13.0-17.5) gm/dL Hct 39.1 (39.0-53.0) % MCV 79.6 L (80.0-100.0) fL MCH 24.8 L (25.0-35.0) pg MCHC 31.2 (31.0-37.0) g/dL RDW 17.3 H (11.5-15.5) % Plt Count 353 (150-450) k/uL Neutrophils % 79 % Lymphocytes % 10 % Monocytes % 8 % Eosinophils % 1 % Basophils % 0 % Neutrophils # 7.6 (1.3-7.7) k/uL Lymphocytes # 0.9 L (1.0-4.8) k/uL Monocytes # 0.8 (0-1.0) k/uL Eosinophils # 0.1 (0-0.7) k/uL Basophils # 0.0 (0-0.2) k/uL Hypochromasia Slight Anisocytosis Slight Microcytosis Slight Sodium 138 (137-145) mmol/L Potassium 3.8 (3.5-5.1) mmol/L Chloride 100 (98-107) mmol/L Carbon Dioxide 23 (22-30) mmol/L Anion Gap 15 mmol/L BUN 22 H (9-20) mg/dL Creatinine 1.04 (0.66-1.25) mg/dL Est GFR (CKD-EPI)AfAm >90 (>60 ml/min/1.73 sqM) Est GFR (CKD-EPI)NonAf 80 (>60 ml/min/1.73 sqM) Glucose 148 H (74-99) mg/dL Calcium 10.2 (8.4-10.2) mg/dL Total Bilirubin 0.5 (0.2-1.3) mg/dL AST 19 (17-59) U/L ALT 11 (4-49) U/L Alkaline Phosphatase 68 (38-126) U/L Troponin I (0.000-0.034) ng/mL Total Protein 8.6 H (6.3-8.2) g/dL Albumin 5.0 (3.5-5.0) g/dL Amylase 53 (30-110) U/L Lipase 40 (23-300) U/L Urine Color Yellow Urine Appearance Clear (Clear) Urine pH 5.5 (5.0-8.0) Ur Specific [place] 1.021 (1.001-1.035) Urine Protein Trace H (Negative) Urine Glucose (UA) Negative (Negative) Urine Ketones Negative (Negative) Urine Blood Negative (Negative) Urine Nitrite Negative (Negative) Urine Bilirubin Negative (Negative) Urine Urobilinogen <2.0 (<2.0) mg/dL Ur Leukocyte Esterase Negative (Negative) 12/13/19 Range/Units 21:32 WBC (3.8-10.6) k/uL RBC (4.30-5.90) m/uL Hgb (13.0-17.5) gm/dL Hct (39.0-53.0) % MCV (80.0-100.0) fL MCH (25.0-35.0) pg MCHC (31.0-37.0) g/dL RDW (11.5-15.5) % Plt Count (150-450) k/uL Neutrophils % % Lymphocytes % % Monocytes % % Eosinophils % % Basophils % % Neutrophils # (1.3-7.7) k/uL Lymphocytes # (1.0-4.8) k/uL Monocytes # (0-1.0) k/uL Eosinophils # (0-0.7) k/uL Basophils # (0-0.2) k/uL Hypochromasia Anisocytosis Microcytosis Sodium (137-145) mmol/L Potassium (3.5-5.1) mmol/L Chloride (98-107) mmol/L Carbon Dioxide (22-30) mmol/L Anion Gap mmol/L BUN (9-20) mg/dL Creatinine (0.66-1.25) mg/dL Est GFR (CKD-EPI)AfAm (>60 ml/min/1.73 sqM) Est GFR (CKD-EPI)NonAf (>60 ml/min/1.73 sqM) Glucose (74-99) mg/dL Calcium (8.4-10.2) mg/dL Total Bilirubin (0.2-1.3) mg/dL AST (17-59) U/L ALT (4-49) U/L Alkaline Phosphatase (38-126) U/L Troponin I <0.012 (0.000-0.034) ng/mL Total Protein (6.3-8.2) g/dL Albumin (3.5-5.0) g/dL Amylase (30-110) U/L Lipase (23-300) U/L Urine Color Urine Appearance (Clear) Urine pH (5.0-8.0) Ur Specific [place] (1.001-1.035) Urine Protein (Negative) Urine Glucose (UA) (Negative) Urine Ketones (Negative) Urine Blood (Negative) Urine Nitrite (Negative) Urine Bilirubin (Negative) Urine Urobilinogen (<2.0) mg/dL Ur Leukocyte Esterase (Negative) - EKG Data EKG Comments: EKG obtained at 2120 shows sinus tachycardia at a ventricular rate of 118, VA interval 128, QRS duration 90, QT 324, QTC 454. No evidence of ST elevation or depression. (Magdalena Altamirano) - Radiology Data KUB x-ray was performed. Report was reviewed in its entirety. Impression by Dr. Ho shows nonacute abdomen. No bowel obstruction. No adverse change compared to last exam. (Magdalena Altamirano) Disposition Decision to Admit Reason: Admit from EC Decision Date: 12/13/19 Decision Time: 23:17 <Magdalena Altamirano - Last Filed: 12/13/19 23:38> <Dayanara Jones - Last Filed: 12/15/19 23:40> Clinical Impression: Intractable abdominal pain, Intractable vomiting Disposition: ADMITTED IP TO THIS [facility] Condition: Serious
[2019-12-13 22:00] LABS: Anisocytosis Slight; Basophils % (A) 0 %; Eosinophils # (A) 0.1 k/uL (0-0.7); Eosinophils % (A) 1 %; HCT 39.1 % (39.0-53.0); Hypochromasia Slight; Lymphocytes # (A) 0.9 k/uL (1.0-4.8); Lymphocytes % (A) 10 %; MCH 24.8 pg (25.0-35.0); MCHC 31.2 g/dL (31.0-37.0); MCV 79.6 fL (80.0-100.0); Mean Platelet Volume 6.8; Microcytosis Slight; Monocytes # (A) 0.8 k/uL (0-1.0); Monocytes % (A) 8 %; Neutrophils # (A) 7.6 k/uL (1.3-7.7); Neutrophils % (A) 79 %; Platelet Count 353 k/uL (150-450); RBC 4.91 m/uL (4.30-5.90); RDW 17.3 % (11.5-15.5); WBC 9.6 k/uL (3.8-10.6)
[2019-12-13 22:05] LABS: Appearance,Urine Clear (Clear); Bilirubin,Urine Negative (Negative); Blood,Urine Negative (Negative); Color,Urine Yellow; Glucose,Urine (UA) Negative (Negative); Ketones,Urine Negative (Negative); Leukocyte Esterase,Urine Negative (Negative); Nitrite,Urine Negative (Negative); PH, Urine 5.5 (5.0-8.0); Protein,Urine Trace (Negative); Specific Gravity,Urine 1.021 (1.001-1.035); Urobilinogen,Urine <2.0 mg/dL (<2.0)
[2019-12-13 22:11] LABS: ALT 11 U/L (4-49); AST 19 U/L (17-59); African American GFR (CKD) >90 (>60 ml/min/1.73 sqM); Alkaline Phosphatase 68 U/L (38-126); Amylase 53 U/L (30-110); Anion Gap 15 mmol/L; Blood Urea Nitrogen 22 mg/dL (9-20); Calcium 10.2 mg/dL (8.4-10.2); Carbon Dioxide 23 mmol/L (22-30); Chloride 100 mmol/L (98-107); Glucose 148 mg/dL (74-99); Non-African American GFR(CKD) 80 (>60 ml/min/1.73 sqM); Potassium 3.8 mmol/L (3.5-5.1); Sodium 138 mmol/L (137-145); Total Bilirubin 0.5 mg/dL (0.2-1.3); Total Protein 8.6 g/dL (6.3-8.2)
[2019-12-13 22:13] LABS: HGB 12.2 gm/dL (13.0-17.5)
--- NOTE | 2019-12-13 22:21 | XR ---
EXAMINATION TYPE: XR KUB DATE OF EXAM: 12/13/2019 COMPARISON: 11/21/2019 HISTORY: Abdominal pain TECHNIQUE: FINDINGS: 2 views upright were obtained. Bowel gas pattern is normal. There is no sign of intestinal obstruction or pneumoperitoneum. Fecal pattern is normal. Lung bases are clear. There are no patholog ic calcifications. There is a stent apparently in the sigmoid colon. IMPRESSION: Nonacute abdomen. No bowel obstruction. No adverse change compared to last exam.
[2019-12-13] MEDS ORDERED: ONDANSETRON 4 MG/2 ML VIAL IVP PRN (23:00)
[2019-12-13] MEDS ORDERED: NALOXONE 0.4 MG/ML 1 ML VIAL IV PRN (23:00)
[2019-12-13] MEDS: SODIUM CHLORIDE 0.9% 1,000 ML IV SCH (23:07)
[2019-12-14] MEDS: HYDROmorphone 1 MG/ML 1 ML SYRINGE IVP PRN ×6 (01:46→21:21)
[2019-12-14] MEDS ORDERED: POLYETHYLENE GLYCOL 3350 17 GM POWD.PACK PO PRN (11:21)
[2019-12-14] MEDS ORDERED: SIMETHICONE 80 MG CHEWABLE PO PRN (11:21)
[2019-12-14] MEDS ORDERED: DOCUSATE 100 MG CAP PO PRN (11:21)
[2019-12-14] MEDS ORDERED: ONDANSETRON ODT 4 MG TAB PO PRN (11:21)
[2019-12-14] MEDS: ONDANSETRON 4 MG/2 ML VIAL IVP PRN ×3 (12:11→21:21)
[2019-12-14] MEDS: HYDROcodone/APAP 10-325MG 1 EACH TAB PO PRN ×2 (12:29→19:25)
--- NOTE | 2019-12-14 12:34 | P.HPIM ---
History of Present Illness 59-year-old with history of rectal cancer in a colostomy in his cancer is in remission came in with compensative multiple episodes of nausea vomiting. Patient had a KUB x-ray which did not show any bowel obstruction. Patient denied any fever chills. Patient has multiple hospitalizations for similar complaints in the past at the time patient was treated for constipation and patient was discharged home patient this time says he is not constipated he didn't move his bowels today. Patient didn't have any vomiting that wasn't ev idenced by nursing staff but is still complaining of nausea patient was started on Zofran patient is also on Protonix. Patient denied any fever fever chills. Patient has nonspecific diffuse abdominal pain which is moderate in severity without any significant subjective tenderness Review of Systems REVIEW OF SYSTEMS: CONSTITUTIONAL: No fever, no malaise, no fatigue. HEENT: No recent visual problems or hearing problems. Denied any sore throat. CARDIOVASCULAR: No chest pain, orthopnea, PND, no palpitations, no syncope. PULMONARY: No shortness of breath, no cough, no hemoptysis. GASTROINTESTINAL: As mentioned in HPI NEUROLOGICAL: No headaches, no weakness, no numbness. HEMATOLOGICAL: Denies any bleeding or petechiae. GENITOURINARY: Denies any burning micturition, frequency, or urgency. MUSCULOSKELETAL/RHEUMATOLOGICAL: Denies any joint pain, swelling, or any muscle pain. ENDOCRINE: Denies any polyuria or polydipsia. The rest of the 14-point review of systems is negative. Past Medical History Past Medical History: Cancer, GERD/Reflux, Osteoarthritis (OA) Additional Past Medical History / Comment(s): Pt recently admitted to [facility] on 12/01/19 with a fall/struck R side abdomin/abdominal pain/vomiting/decrease ostomy function/incisional abdominal hernia. Other hx: Rectal cancer approximately 2 yrs ago with colectomy/ileostomy then reversal/chem pills and radiation, recent partial colonic obstruction-pt sent to [place] and had diverting loop colostomy, chronic low back pain, arthritis in multiple joints, neuropathy bilateral feet/toes and R hand, iron deficiency anemia. History of Any Multi-Drug Resistant Organisms: None Reported Past Surgical History: Appendectomy, Bowel Resection, Orthopedic Surgery, Tonsillectomy Additional Past Surgical History / Comment(s): Colectomy/ileostomy with reve rsal, diverting loop colostomy, colonoscopies, L elbow bursa surgery Past Anesthesia/Blood Transfusion Reactions: No Reported Reaction Past Psychological History: No Psychological Hx Reported Additional Psychological History / Comment(s): Pt resides in an apartment alone. He has home care thru [facility] but states they have not been very reliable. Pt has a cane which he uses prn. He drives. Smoking Status: Former smoker Past Alcohol Use History: Rare Additional Past Alcohol Use History / Comment(s): Pt started smoking as a teen and quit in 1998. Past Drug Use History: None Reported - Past Family History Mother Family Medical History: Cancer, Diabetes Mellitus Additional Family Medical History / Comment(s): from liver cancer Father Family Medical History: Myocardial Infarction ([place]) Additional Family Medical History / Comment(s): Pt has not spoken to his father in years and does not know much of his medical hx. Medications and Allergies Home Medications Medication Instructions Recorded Confirmed Type Triamterene/Hydrochlorothiazid 1 tab PO DAILY 10/08/19 12/14/19 History [Triamterene-Hctz 37.5-25 mg Tb] Famotidine 20 mg PO BID PRN 11/18/19 12/14/19 History Simethicone Chew [Mylicon Chew] 80 mg PO BID PRN 11/18/19 12/14/19 History Polyethylene Glycol 3350 [Miralax] 17 gm PO BID PRN #527 gm 12/03/19 12/14/19 Rx Docusate [Colace] 100 mg PO DAILY PRN 12/14/19 12/14/19 History HYDROcodone/APAP 10-325MG [[place] 2 tab PO Q6H PRN 12/14/19 12/14/19 History 10-325] Ondansetron [Zofran ODT] 4 mg PO Q6H PRN 12/14/19 12/14/19 History Allergies Allergy/AdvReac Type Severity Reaction Status Date / Time No Known Allergies Allergy Verified 12/14/19 09:08 Physical Exam Vitals: Vital Signs Temp Pulse Pulse Resp BP BP Pulse Ox 12/14/19 11:16 98.1 F 71 16 137/83 98 12/14/19 07:56 73 16 12/14/19 05:23 97.9 F 73 16 130/77 97 12/14/19 00:22 96.7 F L 99 16 133/81 90 L 12/13/19 23:09 91 18 118/69 99 12/13/19 21:07 98.2 F 107 H 18 154/90 99 Intake and Output 12/13/19 12/14/19 12/14/19 22:59 06:59 14:59 Intake Total 600 Balance 600 Intake: Intake, IV Titration 600 Amount Sodium Chloride 0.9% 1, 600 000 ml @ 75 mls/hr IV . [id number] [facility] Rx#:[id number] Other: Voiding Method Toilet Toilet Weight 141.521 kg 134 kg PHYSICAL EXAMINATION: GENERAL: The patient is alert and oriented x3, not in any acute distress. Obese HEENT: Pupils are round and equally reacting to light. EOMI. No scleral icterus. No conjunctival pallor. Normocephalic, atraumatic. No pharyngeal erythema. No thyromegaly. CARDIOVASCULAR: S1 and S2 present. No murmurs, rubs, or gallops. PULMONARY: Chest is clear to auscultation, no wheezing or crackles. ABDOMEN: Soft, nontender, nondistended, normoactive bowel sounds. No palpable organomegaly. Patient has a colostomy bag on the left side MUSCULOSKELETAL: No joint swelling or deformity. EXTREMITIES: No cyanosis, clubbing, or pedal edema. NEUROLOGICAL: Gross neurological examination did not reveal any focal deficits. SKIN: No rashes. Results CBC & Chem 7: 12/13/19 21:32 12/13/19 21:32 Labs: Abnormal Lab Results - Last 24 Hours (Table) 12/13/19 12/13/19 12/13/19 Range/Units 21:32 21:32 21:32 Hgb 12.2 L D (13.0-17.5) gm/dL MCV 79.6 L (80.0-100.0) fL MCH 24.8 L (25.0-35.0) pg RDW 17.3 H (11.5-15.5) % Lymphocytes # 0.9 L (1.0-4.8) k/uL BUN 22 H (9-20) mg/dL Glucose 148 H (74-99) mg/dL Total Protein 8.6 H (6.3-8.2) g/dL Urine Protein Trace H (Negative) Thrombosis Risk Factor Assmnt - Choose All That Apply Each Factor Represents 1 point: Age 41-60 years, Obesity (BMI >25) Other Risk Factors: No Other congenital or acquired thrombophilia - If yes, enter type in comment: No Thrombosis Risk Factor Assessment Total Risk Factor Score: 2 Thrombosis Risk Factor Assessment Level: Low Risk Assessment and Plan Plan: -Nausea vomiting: Vomiting resolved patient will be started on Protonix, etiology is not clear no evidence of bowel obstruction. Patient will be treated symptomatically there may be a psychosomatic competent. General surgery was consulted. -Recommend rectosigmoid cancer status post colectomy with a colostomy bag patient doesn't have a much of stool in that bad today. -Morbid obesity -Gastroesophageal reflux disease -Chronic low back pain with neuropathy Hypertension -DVT prophylaxis with subcutaneous heparin
[2019-12-14 12:41] VITALS: BMI 43.6
--- NOTE | 2019-12-14 13:30 | P.GSCN ---
History of Present Illness Consult date: 12/14/19 Reason for Consult: Nausea, abdominal pain History of present illness: Is a 59-year-old male with history of rectal cancer. Patient has had complaints of nausea and abdominal pain. Apparently has a known incisional hernia. Patient states his pain was worsened yesterday. He was admitted through the emergency room for complaints of abdominal pain. His abdominal x-ray shows a nonspecific abdomen. Patient a previous CAT scan performed in November 30. He has evidence of a rectosigmoid stent. He also has a large paracentral ventral hernia containing small bowel. Past Medical History Past Medical History: Cancer, GERD/Reflux, Osteoarthritis (OA) Additional Past Medical History / Comment(s): Pt recently admitted to [facility] on 12/01/19 with a fall/struck R side abdomin/abdominal pain/vomiting/decrease ostomy function/incisional abdominal hernia. Other hx: Rectal cancer approximately 2 yrs ago with colectomy/ileostomy then reversal/chem pills and radiation, recent partial colonic obstruction-pt sent to [place] and had diverting loop colostomy, chronic low back pain, arthritis in multiple joints, neuropathy bilateral feet/toes and R hand, iron deficiency anemia. History of Any Multi-Drug Resistant Organisms: None Reported Past Surgical History: Appendectomy, Bowel Resection, Orthopedic Surgery, Tonsillectomy Additional Past Surgical History / Comment(s): Colectomy/ileostomy with revers al, diverting loop colostomy, colonoscopies, L elbow bursa surgery Past Anesthesia/Blood Transfusion Reactions: No Reported Reaction Past Psychological History: No Psychological Hx Reported Additional Psychological History / Comment(s): Pt resides in an apartment alone. He has home care thru [facility] but states they have not been very reliable. Pt has a cane which he uses prn. He drives. Smoking Status: Former smoker Past Alcohol Use History: Rare Additional Past Alcohol Use History / Comment(s): Pt started smoking as a teen and quit in 1998. Past Drug Use History: None Reported - Past Family History Mother Family Medical History: Cancer, Diabetes Mellitus Additional Family Medical History / Comment(s): from liver cancer Father Family Medical History: Myocardial Infarction (IA) Additional Family Medical History / Comment(s): Pt has not spoken to his father in years and does not know much of his medical hx. Medications and Allergies Home Medications Medication Instructions Recorded Confirmed Type Triamterene/Hydrochlorothiazid 1 tab PO DAILY 10/08/19 12/14/19 History [Triamterene-Hctz 37.5-25 mg Tb] Famotidine 20 mg PO BID PRN 11/18/19 12/14/19 History Simethicone Chew [Mylicon Chew] 80 mg PO BID PRN 11/18/19 12/14/19 History Polyethylene Glycol 3350 [Miralax] 17 gm PO BID PRN #527 gm 12/03/19 12/14/19 Rx Docusate [Colace] 100 mg PO DAILY PRN 12/14/19 12/14/19 History HYDROcodone/APAP 10-325MG [[place] 2 tab PO Q6H PRN 12/14/19 12/14/19 History 10-325] Ondansetron [Zofran ODT] 4 mg PO Q6H PRN 12/14/19 12/14/19 History Allergies Allergy/AdvReac Type Severity Reaction Status Date / Time No Known Allergies Allergy Verified 12/14/19 09:08 Surgical - Exam Vital Signs Temp Pulse Resp BP Pulse Ox 98.2 F 107 H 18 154/90 99 12/13/19 21:07 12/13/19 21:07 12/13/19 21:07 12/13/19 21:07 12/13/19 21:07 - General well developed, no distress - Eyes PERRL - ENT normal pinna - Neck no masses - Respiratory normal expansion - Cardiovascular Rhythm: regular - Abdomen Mild tenderness throughout. Patient has multiple well-healed laparotomy scars. Abdomen: soft Results - Labs 12/13/19 21:32 12/13/19 21:32 Abnormal Lab Results - Last 24 Hours (Table) 12/13/19 12/13/19 12/13/19 Range/Units 21:32 21:32 21:32 Hgb 12.2 L D (13.0-17.5) gm/dL MCV 79.6 L (80.0-100.0) fL MCH 24.8 L (25.0-35.0) pg RDW 17.3 H (11.5-15.5) % Lymphocytes # 0.9 L (1.0-4.8) k/uL BUN 22 H (9-20) mg/dL Glucose 148 H (74-99) mg/dL Total Protein 8.6 H (6.3-8.2) g/dL Urine Protein Trace H (Negative) Diabetes panel 12/13/19 Range/Units 21:32 Sodium 138 (137-145) mmol/L Potassium 3.8 (3.5-5.1) mmol/L Chloride 100 (98-107) mmol/L Carbon Dioxide 23 (22-30) mmol/L BUN 22 H (9-20) mg/dL Creatinine 1.04 (0.66-1.25) mg/dL Glucose 148 H (74-99) mg/dL Calcium 10.2 (8.4-10.2) mg/dL AST 19 (17-59) U/L ALT 11 (4-49) U/L Alkaline Phosphatase 68 (38-126) U/L Total Protein 8.6 H (6.3-8.2) g/dL Albumin 5.0 (3.5-5.0) g/dL Calcium panel 12/13/19 Range/Units 21:32 Calcium 10.2 (8.4-10.2) mg/dL Albumin 5.0 (3.5-5.0) g/dL Pituitary panel 12/13/19 Range/Units 21:32 Sodium 138 (137-145) mmol/L Potassium 3.8 (3.5-5.1) mmol/L Chloride 100 (98-107) mmol/L Carbon Dioxide 23 (22-30) mmol/L BUN 22 H (9-20) mg/dL Creatinine 1.04 (0.66-1.25) mg/dL Glucose 148 H (74-99) mg/dL Calcium 10.2 (8.4-10.2) mg/dL Adrenal panel 12/13/19 Range/Units 21:32 Sodium 138 (137-145) mmol/L Potassium 3.8 (3.5-5.1) mmol/L Chloride 100 (98-107) mmol/L Carbon Dioxide 23 (22-30) mmol/L BUN 22 H (9-20) mg/dL Creatinine 1.04 (0.66-1.25) mg/dL Glucose 148 H (74-99) mg/dL Calcium 10.2 (8.4-10.2) mg/dL Total Bilirubin 0.5 (0.2-1.3) mg/dL AST 19 (17-59) U/L ALT 11 (4-49) U/L Alkaline Phosphatase 68 (38-126) U/L Total Protein 8.6 H (6.3-8.2) g/dL Albumin 5.0 (3.5-5.0) g/dL Assessment and Plan Assessment: Chronic pain Nausea Patient will be observed. Dr. Coyle will reevaluate the patient in the a.m.
[2019-12-14] MEDS: HEPARIN SODIUM,PORCINE 5,000 UNIT/ML 1 ML VIAL SQ SCH (15:50)
[2019-12-14] MEDS: PANTOPRAZOLE 40 MG/10 ML VIAL IVP SCH (15:55)
[2019-12-14] MEDS: SODIUM CHLORIDE 0.9% 1,000 ML IV SCH (16:01)
[2019-12-15] MEDS: SODIUM CHLORIDE 0.9% 1,000 ML IV SCH ×2 (00:31→14:00)
[2019-12-15] MEDS: HEPARIN SODIUM,PORCINE 5,000 UNIT/ML 1 ML VIAL SQ SCH ×3 (01:28→17:36)
[2019-12-15] MEDS: ONDANSETRON 4 MG/2 ML VIAL IVP PRN ×6 (01:29→21:52)
[2019-12-15] MEDS: HYDROmorphone 1 MG/ML 1 ML SYRINGE IVP PRN ×6 (01:29→21:52)
[2019-12-15] MEDS: HYDROcodone/APAP 10-325MG 1 EACH TAB PO PRN ×4 (03:02→23:01)
[2019-12-15] MEDS: PANTOPRAZOLE 40 MG/10 ML VIAL IVP SCH (08:28)
--- NOTE | 2019-12-15 09:51 | P.PN ---
<Lisa Williamson - Last Filed: 12/15/19 09:47> Subjective Progress Note Date: 12/15/19 CHIEF COMPLAINT: Abdominal pain HISTORY OF PRESENT ILLNESS: Patient examined this morning at the bedside. Patient reports persistent pain to right lower quadrant. He reports nausea. Denies emesis. He states he only had a very small amount of liquid out of his ostomy for the last two days. He is requiring IV narcotics to control his pain. PHYSICAL EXAM: VITAL SIGNS: Reviewed. GENERAL: Well-developed in no acute distress. HEENT: No sclera icterus. Extraocular movements grossly intact. Moist buccal mucosa. Head is atraumatic, normocephalic. ABDOMEN: Soft. Nondistended. Tenderness with palpation to right lower quadrant. Old healed surgical scars. Ostomy noted without gas or stool. NEUROLOGIC: Alert and oriented. Cranial nerves II through XII grossly intact. ASSESSMENT: 1. Abdominal pain, nausea 2. History of rectal cancer PLAN: -Continue clear liquid diet as tolerated -Continue antiemetics -Pain control. Continue IV Dilaudid -Patient will be re-evaluated by Dr. Lawson this afternoon. Nurse practitioner note has been reviewed by physician. Signing provider agrees with the documented findings, assessment, and plan of care. Objective - Vital Signs Vital signs: Vital Signs Temp 97.9 F 12/15/19 04:29 Pulse 76 12/15/19 04:29 Resp 16 12/15/19 04:29 BP 162/72 12/15/19 04:29 Pulse Ox 99 12/15/19 04:29 Intake & Output 12/14/19 12/15/19 12/15/19 18:59 06:59 18:59 Intake Total 160 1490 Balance 160 1490 Weight 134 kg Intake: IV 900 Sodium Chloride 0.9% 1, 900 000 ml @ 75 mls/hr IV . [id number] [facility] Rx#:[id number] Oral 160 590 Other: Voiding Method Toilet Toilet # Voids 3 2 - Labs CBC & Chem 7: 12/13/19 21:32 12/13/19 21:32 <Dru Lawson - Last Filed: 12/15/19 10:12> Subjective As above. Patient with ongoing nausea. No emesis since he presented to the hospital. Ostomy function remains diminished. Etiology of the patient's recurrent outs of nausea and vomiting with decreased bowel function unclear but could be related to the patient's incisional hernia. We'll repeat CT abdomen and pelvis with contrast at this time. Objective - Vital Signs Vital signs: Vital Signs Temp 97.9 F 12/15/19 04:29 Pulse 76 12/15/19 04:29 Resp 16 12/15/19 04:29 BP 162/72 12/15/19 04:29 Pulse Ox 99 12/15/19 04:29 Intake & Output 12/14/19 12/15/19 12/15/19 18:59 06:59 18:59 Intake Total 160 1490 Balance 160 1490 Weight 134 kg Intake: IV 900 Sodium Chloride 0.9% 1, 900 000 ml @ 75 mls/hr IV . [id number] [facility] Rx#:[id number] Oral 160 590 Other: Voiding Method Toilet Toilet # Voids 3 2 - Labs CBC & Chem 7: 12/13/19 21:32 12/13/19 21:32
[2019-12-15] MEDS: IOPAMIDOL CONTRAST (ORAL USE) VIAL PO PRN ×2 (11:04→12:12)
--- NOTE | 2019-12-15 13:33 | P.PN ---
Subjective Progress Note Date: 12/15/19 Principal diagnosis: 59-year-old with history of rectal cancer in a colostomy in his cancer is in remission came in with compensative multiple episodes of nausea vomiting. Patient had a KUB x-ray which did not show any bowel obstruction. Patient denied any fever chills. Patient has multiple hospitalizations for similar complaints in the past at the time patient was treated for constipation and patient was discharged home patient this time says he is not constipated he didn 't move his bowels today. Patient didn't have any vomiting that wasn't evidenced by nursing staff but is still complaining of nausea patient was started on Zofran patient is also on Protonix. Patient denied any fever fever chills. Patient has nonspecific diffuse abdominal pain which is moderate in severity without any significant subjective tenderness 12/15/2019 Patient is seen and evaluated in follow-up today. Patient states he continues to have nausea although no vomiting associated. Patient states he also is having almost no output in the colostomy and told nursing staff that he drained a small amount of liquid stool last night with no output today noted. Patient continues to have abdominal discomfort and is awaiting CT of the abdomen and pelvis. Surgery is following. Currently no reports of chest pain, shortness of breath, or palpitations. Patient is afebrile. Objective - Vital Signs Vital signs: Vital Signs Temp 97.6 F 12/15/19 13:00 Pulse 82 12/15/19 13:00 Resp 16 12/15/19 13:00 BP 140/67 12/15/19 13:00 Pulse Ox 99 12/15/19 13:00 Intake & Output 12/14/19 12/15/19 12/15/19 18:59 06:59 18:59 Intake Total 160 1490 650 Balance 160 1490 650 Weight 134 kg Intake: IV 900 650 Sodium Chloride 0.9% 1, 900 650 000 ml @ 75 mls/hr IV . [id number] [facility] Rx#:[id number] Oral 160 590 Other: Voiding Method Toilet Toilet # Voids 3 2 2 - Exam GENERAL: The patient is alert and oriented x3, not in any acute distress. Obese HEENT: Pupils are round and equally reacting to light. EOMI. No scleral icterus. No conjunctival pallor. Normocephalic, atraumatic. No pharyngeal erythema. No thyromegaly. CARDIOVASCULAR: S1 and S2 present. No murmurs, rubs, or gallops. PULMONARY: Chest is clear to auscultation, no wheezing or crackles. ABDOMEN: Soft, nontender, nondistended, normoactive bowel sounds. No palpable organomegaly. Patient has a colostomy bag on the left side MUSCULOSKELETAL: No joint swelling or deformity. EXTREMITIES: No cyanosis, clubbing, or pedal edema. NEUROLOGICAL: Gross neurological examination did not reveal any focal deficits. SKIN: No rashes. - Labs CBC & Chem 7: 12/13/19 21:32 12/13/19 21:32 Assessment and Plan Assessment: -Nausea vomiting: Vomiting resolved patient will be started on Protonix, etiology is not clear no evidence of bowel obstruction. Patient will be treated symptomatically there may be a psychosomatic component. Surgery is following and awaiting report of the CAT scan of the abdomen pelvis. -Recent rectosigmoid cancer status post colectomy with a colostomy bag. No output noted in the colostomy bag today -Morbid obesity -Gastroesophageal reflux disease -Chronic low back pain with neuropathy -Hypertension -DVT prophylaxis with subcutaneous heparin Plan: Continue with current medications, management, and symptomatic treatment. Awaiting CT abdomen pelvis. Surgery is following. To continue with clear liquids at this time. Further recommendations to follow. Avoid IV narcotics as much as possible.
--- NOTE | 2019-12-15 13:43 | P.PN ---
Progress Note - Text Progress Note Date: 12/15/19 Patient went for CAT scan this morning with contrast. CAT scan was reviewed with the radiologist by phone. Patient does have some dilated small bowel loops proximally again raising the suspicion that partial small bowel obstruction is contributing to his intermittent episodes of intractable nausea vomiting and diminished ostomy output. No high-grade obstruction is seen at this point. Patient with 4 admissions in the last month with repetitive CAT scans not showing high-grade obstruction. At this point after speaking with the patient in detail I believe its best to proceed with repair of this incarcerated incisional hernia with mesh in the hopes that it will prevent these recurrent e pisodes of suspected bowel obstructions. Risks of bleeding, infection, recurrence, bladder and bowel injury, numbness, nerve injury, possible need for bowel resection were discussed with the patient. The patient understands and wishes to proceed.
--- NOTE | 2019-12-15 13:49 | CT ---
EXAMINATION TYPE: CT abdomen pelvis w con DATE OF EXAM: 12/15/2019 COMPARISON: 12/01/2019, 11/17/2019, 10/13/2019 INDICATION: obstruction, hernia DLP: 2248.4 mGycm, Automated exposure control for dose reduction was used. CONTRAST: 100 mL of Isovue 300. Study performed with Oral Contrast TECHNIQUE: Axial images were obtained from above the diaphragm to the pubic rami in the axial plane a t 5 mm thick sections. Reconstructed images are reviewed on the computer in the coronal plane. FINDINGS: Limited CT sections are obtained the lung bases. The lung bases are clear. There is reflux in the d istal esophagus during this exam. CT ABDOMEN: Liver: Normal Spleen: Normal Pancreas: Normal Adrenal glands: The adrenal glands are normal. Gallbladder: Normal Kidneys: There is a 1.9 cm hypodense area within the posterior inferior left kidney this may be proje ctional. This is not as well identified on prior examinations consider follow-up with ultrasound. No hydronephrosis is present. There is a 1.4 cm cyst on the posterior lateral right kidney measuring 1 2 Hounsfield units. Delayed images were obtained through the kidneys, this hypodense area within the posterior lateral right inferior kidney has a more normal appearance on the delayed images. Aorta: Mild Vascular calcification is within the aorta. Inferior vena cava: Normal. CT PELVIS: There is a large right anterior abdominal wall hernia containing multiple loops of small bowel. Estim ated opening on this examination is 7.8 cm. Multiple contrast filled loops of small bowel are present which have slight prominence. A small bowel anastomosis is in the lateral right hernia but does not appear obstructed at the anastomosis. These small bowel loops however are prominent and greater than present on the 11/17/2019 examination but less prominent than the 10/13/2019 and 12/01/2019 comparisons. It is noted by history the patient has been nothing by mouth for 2 days which may be decompressing po ssible mild small bowel obstruction through this region. In the coronal plane the proximal jejunal lo ops of bowel have slight prominence and extends towards the hernia. The distal ileal loops of bowel a ppear decompressed in relation to the jejunum. Oral contrast extends to the cecum. Transverse colon appears normal. The descending colon is decompre ssed to the ostomy. The ostomy loops of bowel are patent and nondilated left lower quadrant. There is some mild mesenteric inflammatory change in the left upper quadrant of the abdomen within th e mesentery. Example image series 3 image 41. This measures approximately 6 cm. This could be relate d to some mesenteric entrapment within the abdominal cavity. This has been present previously on 11/16 and 12/01/2019 but is not evident in 10/13/2019. Some beam hardening artifact from the dense degenerative hips may be present causing some limitation in the lower pelvis for evaluation. There is a rectal stent present within the proximal rectum extending to the sigmoid colon to nearly t he descending colon. Proximal portion appears normal. Adjacent to the distal portion is a small amoun t of air, present previously. There appear to be diffuse inflammatory changes within the perirectal f at. These findings been present on 12/01/2019 exam and 11/17/2019 exam. Phlegmon formation would be with in the differential. Discrete abscess is not identified. Appendix: Not identified. Suspicious dilated tubular structure is not identified. Urinary bladder: Normal. Genitourinary structures: Prostate is not well visualized but does not appear enlarged. Osseous structures: No suspicious lytic or sclerotic lesions. Advanced degenerative changes with dest ruction are evident at the right hip. Some degenerative changes at the left hip. Degenerative disc ch anges are present L5-S1. Communications: Preliminary results were discussed with Dr. Lawson by Dr. Calix by telephone approxi mately 1330 hours 12/15/2019. IMPRESSIONS: 1. 1.9 cm hypodense area within the posterior lateral inferior pole right kidney may be projectional . This is not clearly identified previously, the renal contours may be similar to prior exams. Consid er follow-up with ultrasound. 2. Some prominence of the small bowel loops within the right upper quadrant compared to the intra-abd ominal ileum. Partial small bowel obstruction should be considered. This does not appear to be relate d to the anastomosis within the hernia sac but may be related to the hernia itself. 3. Chronic changes at the distal aspect of the rectal stent. Phlegmon should be considered. Discrete abscess formation is not identified.
[2019-12-16] MEDS: HEPARIN SODIUM,PORCINE 5,000 UNIT/ML 1 ML VIAL SQ SCH ×4 (00:07→23:04)
[2019-12-16] MEDS: HYDROmorphone 1 MG/ML 1 ML SYRINGE IVP PRN ×6 (01:55→22:20)
[2019-12-16] MEDS: ONDANSETRON 4 MG/2 ML VIAL IVP PRN ×2 (01:55→06:05)
[2019-12-16] MEDS: HYDROcodone/APAP 10-325MG 1 EACH TAB PO PRN ×3 (04:56→23:04)
[2019-12-16] MEDS: SODIUM CHLORIDE 0.9% 1,000 ML IV SCH ×2 (04:57→20:20)
[2019-12-16] MEDS ORDERED: DEXAMETHASONE SOD PHOSPHATE 10 MG/ML 1 ML VIAL IV ONE (06:27)
[2019-12-16] MEDS ORDERED: ONDANSETRON 4 MG/2 ML VIAL IVP ONE (06:27)
[2019-12-16] MEDS ORDERED: HYDROmorphone 0.5 MG/0.5 ML SYRINGE IVP PRN (06:27)
[2019-12-16] MEDS: PANTOPRAZOLE 40 MG/10 ML VIAL IVP SCH (10:04)
[2019-12-16] MEDS ORDERED: IV FLUID CONTINUATION 1,000 ML IV ONE (11:05)
[2019-12-16] MEDS ORDERED: ceFAZolin 3 GM in SODIUM CHLORIDE 0.9% 100 ML IVPB STA (12:07)
[2019-12-16] MEDS ORDERED: HYDROmorphone (PF) 1 MG/ML ONE (12:17)
[2019-12-16] MEDS ORDERED: LIDOCAINE 1% INJ 10MG/ML (20 ML MDV) ONE (12:17)
[2019-12-16] MEDS ORDERED: KETAMINE 10 MG/ML 20 ML VIAL ONE (12:17)
[2019-12-16] MEDS ORDERED: GLYCOPYRROLATE 0.2 MG/ML 2 ML VIAL ONE (12:17)
[2019-12-16] MEDS ORDERED: MIDAZOLAM 2 MG/2 ML VIAL ONE (12:17)
[2019-12-16] MEDS ORDERED: PROPOFOL 10 MG/ML 20 ML VIAL IV ONE (12:17)
[2019-12-16] MEDS ORDERED: NEOSTIGMINE 1 MG/ML 10 ML VIAL ONE (12:17)
[2019-12-16] MEDS ORDERED: ROCURONIUM BROMIDE 10 MG/ML 5 ML VIAL IV ONE (12:17)
[2019-12-16] MEDS ORDERED: fentaNYL (PF) 50 MCG/ML 2 ML AMP ONE (12:17)
[2019-12-16] MEDS ORDERED: SUCCINYLCHOLINE CHLORIDE 100 MG/5 ML SYR IV ONE (12:17)
[2019-12-16] MEDS ORDERED: LACTATED RINGERS 1,000 ML IV ONE (12:22)
[2019-12-16] MEDS ORDERED: BUPIVACAIN-EPI 0.25%-1:200,000 30 ML VIAL SQ ONE (13:50)
[2019-12-16] MEDS ORDERED: HYDROmorphone 1 MG/ML 1 ML SYRINGE IVP PRN (14:44)
[2019-12-16] MEDS ORDERED: HYDROmorphone 1 MG/ML 1 ML SYRINGE IVP ONE ×7 (14:45→15:55)
[2019-12-16] MEDS ORDERED: NALOXONE 0.4 MG/ML 1 ML VIAL IV PRN (14:45)
[2019-12-16] MEDS ORDERED: KETOROLAC 30 MG/ML 1 ML VIAL IVP ONE ×2 (14:50→16:00)
--- NOTE | 2019-12-16 14:51 | P.OP ---
Date of Procedure: 12/16/19 Procedure(s) Performed: PREOPERATIVE DIAGNOSIS: Incarcerated incisional hernia POSTOPERATIVE DIAGNOSIS: Same PROCEDURE: Incarcerated incisional hernia repair with mesh, enterolysis SURGEON: Renny EBL: 50 mL ANESTHESIA: Gen. COMPLICATIONS: None OPERATIVE PROCEDURE: Patient placed on the operating table in the supine position. Preoperative Ocasio catheter was placed. Abdomen was prepped and draped in usual sterile fashion. A Ray-Verna was placed over the colostomy and an Tegaderm was placed over that. Following that the Ioban was utilized. The previous transverse incision in the right mid quadrant was re-incised lengthening medially and laterally. Dissection through the subcutaneous fat took place. The large hernia sac was encountered. There were actually 2 defects in the fascia as suspected from the preoperative CAT scan. The hernia sac was carefully dissected back to the fascia. This was fully excised. The portion of attenuated fascia between the 2 defects was excised as well. Lysis of adhesions between the hernia sac and the small bowel loops took place using both sharp dissection and blunt dissection. No serosal tears were seen. There was viability noted to the bowel. There was no definite site of obstruction identified. I would estimate approximately 12 inches of bowel was present within the hernia sac however. The hernia defect then was measured. This was oval-shaped and oriented horizontally. This measured 9 x 6 cm. The 11 x 14 cm Ventrio mesh was utilized. This was placed beneath the fascia and secured to the fascia using trans-fascial 0 Ethibond sutures. Following that the midline fascia was reapproximated using [id number] #2 Ethibond sutures. A drain was placed anterior to the fascial closure exiting through the right lower quadrant. This was sutured to the skin using a 3-0 silk stitch. The subcutaneous tissues were closed using 2-0 and 3-0 Vicryl sutures. The skin was closed using juan jose. Sterile dressings were applied. DISPOSITION: Stable to recovery room
--- NOTE | 2019-12-16 15:04 | P.PN ---
Subjective Progress Note Date: 12/16/19 Principal diagnosis: 59-year-old with history of rectal cancer in a colostomy in his cancer is in remission came in with compensative multiple episodes of nausea vomiting. Patient had a KUB x-ray which did not show any bowel obstruction. Patient denied any fever chills. Patient has multiple hospitalizations for similar complaints in the past at the time patient was treated for constipation and patient was discharged home patient this time says he is not constipated he didn 't move his bowels today. Patient didn't have any vomiting that wasn't evidenced by nursing staff but is still complaining of nausea patient was started on Zofran patient is also on Protonix. Patient denied any fever fever chills. Patient has nonspecific diffuse abdominal pain which is moderate in severity without any significant subjective tenderness 12/15/2019 Patient is seen and evaluated in follow-up today. Patient states he continues to have nausea although no vomiting associated. Patient states he also is having almost no output in the colostomy and told nursing staff that he drained a small amount of liquid stool last night with no output today noted. Patient continues to have abdominal discomfort and is awaiting CT of the abdomen and pelvis. Surgery is following. Currently no reports of chest pain, shortness of breath, or palpitations. Patient is afebrile. 12/16/2019 Patient is seen and evaluated in follow-up today and continues to have abdominal discomfort and underwent CT of the abdomen and pelvis showing a large right anterior abdominal wall hernia containing multiple loops of small bowel. Patient is scheduled to undergo hernia repair in the morning with Dr. talbert. Patient continues to have very minimal liquid stool output noted in the colostomy. Currently no reports of chest pain, shortness of breath, or palpitations. Patient is afebrile. No reports of vomiting the patient continues to have nausea. Patient requesting pain medications often before at scheduled time. Patient stated to have increased amounts of pain medication ready status post surgery as he was told he will be having extreme amounts of pain. Patient appears to be pain seeking at times. Objective - Vital Signs Vital signs: Vital Signs Temp 97.1 F L 12/16/19 11:13 Pulse 82 12/16/19 11:13 Resp 18 12/16/19 11:13 BP 134/65 12/16/19 11:13 Pulse Ox 98 12/16/19 11:13 Intake & Output 12/15/19 12/16/19 12/16/19 18:59 06:59 18:59 Intake Total 650 900 Balance 650 900 Weight 134 kg Intake: IV 650 900 Sodium Chloride 0.9% 1, 650 900 000 ml @ 75 mls/hr IV . [id number] [facility] Rx#:[id number] Other: Voiding Method Toilet # Voids 2 3 # Bowel Movements 3 - Exam GENERAL: The patient is alert and oriented x3, not in any acute distress. Obese HEENT: Pupils are round and equally reacting to light. EOMI. No scleral icterus. No conjunctival pallor. Normocephalic, atraumatic. No pharyngeal erythema. No thyromegaly. CARDIOVASCULAR: S1 and S2 present. No murmurs, rubs, or gallops. PULMONARY: Chest is clear to auscultation, no wheezing or crackles. ABDOMEN: Soft, nontender, nondistended, normoactive bowel sounds. No palpable organomegaly. Patient has a colostomy bag on the left side with a minimal amount of liquid brown stool noted MUSCULOSKELETAL: No joint swelling or deformity. EXTREMITIES: No cyanosis, clubbing, or pedal edema. NEUROLOGICAL: Gross neurological examination did not reveal any focal deficits. SKIN: No rashes. - Labs CBC & Chem 7: 12/13/19 21:32 12/13/19 21:32 Assessment and Plan Assessment: -Nausea vomiting: Vomiting resolved patient will be started on Protonix, etiology is not clear no evidence of bowel obstruction. Patient will be treated symptomatically there may be a psychosomatic component. Surgery is following and awaiting to undergo hernia repair as noted on CAT scan with Dr. talbert -Recent rectosigmoid cancer status post colectomy with a colostomy bag. Scant a mount of liquid brown stool noted in the colostomy bag today -Morbid obesity -Gastroesophageal reflux disease -Chronic low back pain with neuropathy -Hypertension -DVT prophylaxis with subcutaneous heparin Plan: Continue with current medications, management, and symptomatic treatment. Awaiting incisional hernia repair with Dr. Talbert today. Surgery is following. Patient is nothing by mouth. Further recommendations to follow. Avoid IV narcotics as much as possible.
[2019-12-16] MEDS ORDERED: fentaNYL (PF) 50 MCG/ML 2 ML AMP IVP ONE ×2 (15:05→15:14)
[2019-12-16] MEDS ORDERED: HYDROmorphone 0.5 MG/0.5 ML SYRINGE IVP ONE (16:10)
[2019-12-16] MEDS ORDERED: SODIUM CHLORIDE 0.9% 1,000 ML IV ONE (16:15)
[2019-12-16] MEDS: KETOROLAC 30 MG/ML 1 ML VIAL IVP SCH ×2 (16:45→23:04)
[2019-12-16] MEDS: LACTATED RINGERS 1,000 ML IV SCH (19:11)
[2019-12-17] MEDS: HYDROmorphone 1 MG/ML 1 ML SYRINGE IVP PRN ×12 (00:20→23:28)
[2019-12-17] MEDS: HYDROcodone/APAP 10-325MG 1 EACH TAB PO PRN ×3 (05:30→20:18)
[2019-12-17] MEDS: KETOROLAC 30 MG/ML 1 ML VIAL IVP SCH ×4 (05:30→23:26)
[2019-12-17] MEDS: LACTATED RINGERS 1,000 ML IV SCH (05:32)
[2019-12-17] MEDS: SODIUM CHLORIDE 0.9% 1,000 ML IV SCH ×2 (06:29→20:20)
[2019-12-17 07:08] LABS: Anisocytosis Slight; Basophils % (A) 0 %; Eosinophils % (A) 0 %; HCT 31.8 % (39.0-53.0); Hypochromasia Moderate; Lymphocytes # (A) 0.4 k/uL (1.0-4.8); Lymphocytes % (A) 5 %; MCH 25.3 pg (25.0-35.0); MCHC 31.4 g/dL (31.0-37.0); MCV 80.7 fL (80.0-100.0); Mean Platelet Volume 7.3; Monocytes # (A) 0.5 k/uL (0-1.0); Monocytes % (A) 6 %; Neutrophils # (A) 7.3 k/uL (1.3-7.7); Neutrophils % (A) 88 %; Platelet Count 185 k/uL (150-450); RBC 3.94 m/uL (4.30-5.90); RDW 16.8 % (11.5-15.5); WBC 8.3 k/uL (3.8-10.6)
[2019-12-17 07:17] LABS: African American GFR (CKD) >90 (>60 ml/min/1.73 sqM); Anion Gap 8 mmol/L; Blood Urea Nitrogen 9 mg/dL (9-20); Calcium 8.9 mg/dL (8.4-10.2); Carbon Dioxide 23 mmol/L (22-30); Chloride 104 mmol/L (98-107); Glucose 134 mg/dL (74-99); Non-African American GFR(CKD) >90 (>60 ml/min/1.73 sqM); Potassium 4.2 mmol/L (3.5-5.1); Sodium 135 mmol/L (137-145)
[2019-12-17] MEDS: HEPARIN SODIUM,PORCINE 5,000 UNIT/ML 1 ML VIAL SQ SCH ×3 (08:45→23:28)
[2019-12-17] MEDS: PANTOPRAZOLE 40 MG/10 ML VIAL IVP SCH (08:46)
--- NOTE | 2019-12-17 10:08 | P.PN ---
<Lisa Williamson Carter - Last Filed: 12/17/19 10:06> Subjective Progress Note Date: 12/17/19 CHIEF COMPLAINT: Abdominal pain HISTORY OF PRESENT ILLNESS: Patient is status post repair of incarcerated incisional hernia with mesh and enterolysis. POD #1. Patient examined at the bedside this morning. Patient reports uncontrolled pain overnight and this morning. Patient refused epidural insertion yesterday. Still refusing epidural this morning despite his pain. He is tolerating clear liquid diet. Reports minimal nausea. No vomiting. Ostomy with small amount of stool noted. Vital s igns stable. Heart rate low 100s. He is afebrile. WBC 8.3. Hemoglobin 10.0. PHYSICAL EXAM: VITAL SIGNS: Reviewed. GENERAL: Well-developed in no acute distress. HEENT: No sclera icterus. Extraocular movements grossly intact. Moist buccal mucosa. Head is atraumatic, normocephalic. ABDOMEN: Soft. Nondistended. Dressing clean dry and intact. JANET drain with serosanguineous drainage. Ostomy with small amount of stool noted. Abdominal binder present. NEUROLOGIC: Alert and oriented. Cranial nerves II through XII grossly intact. ASSESSMENT: 1. Abdominal pain, nausea 2. History of rectal cancer 3. Incarcerated incisional hernia PLAN: -Continue clear liquid diet as tolerated -Pain control. Patient refusing epidural. Continue IV Dilaudid and IV Toradol -Add incentive spirometry -Increase activity as tolerated. Patient reporting he does not think he can get OOB today and into the chair. Will consult PT/OT -Monitor JANET drain output -Continue harrison catheter for today. Anticipate discontinuing catheter tomorrow Nurse practitioner note has been reviewed by physician. Signing provider agrees with the documented findings, assessment, and plan of care. Objective - Vital Signs Vital signs: Vital Signs Temp 98.1 F 12/17/19 05:00 Pulse 102 H 12/17/19 05:00 Resp 18 12/17/19 05:00 BP 152/78 12/17/19 05:00 Pulse Ox 95 12/17/19 05:00 Intake & Output 12/16/19 12/17/19 12/17/19 18:59 06:59 18:59 Intake Total 2300 1140 Output Total 400 775 Balance 1900 365 Weight 134 kg Intake: IV 2300 900 Sodium Chloride 0.9% 1, 300 900 000 ml @ 75 mls/hr IV . [id number] [facility] Rx#:[id number] Oral 240 Output: Gastric Drainage 0 Drainage 75 Right Abdomen 75 Urine 350 700 Uretheral (Harrison) 700 Estimated Blood Loss 50 Other: Voiding Method Toilet Indwelling Catheter # Voids 3 - Labs CBC & Chem 7: 12/17/19 05:49 12/17/19 05:49 Labs: Abnormal Lab Results - Last 24 Hours (Table) 12/17/19 12/17/19 Range/Units 05:49 05:49 RBC 3.94 L (4.30-5.90) m/uL Hgb 10.0 L D (13.0-17.5) gm/dL Hct 31.8 L (39.0-53.0) % RDW 16.8 H (11.5-15.5) % Lymphocytes # 0.4 L (1.0-4.8) k/uL Sodium 135 L (137-145) mmol/L Glucose 134 H (74-99) mg/dL <Dru Lawson - Last Filed: 12/17/19 18:47> Subjective As above. Patient's pain has improved since surgery. Liquid stools and ostomy. Some nausea but no vomiting. He is hungry. Will advance diet. Continue increasing activity. Harrison catheter will be removed. Objective - Vital Signs Vital signs: Vital Signs Temp 97.9 F 12/17/19 11:41 Pulse 88 12/17/19 11:41 Resp 18 12/17/19 11:41 BP 139/75 12/17/19 11:41 Pulse Ox 95 12/17/19 11:41 Intake & Output 12/16/19 12/17/19 12/17/19 18:59 06:59 18:59 Intake Total 2300 1140 600 Output Total 160 334 6779 Balance 1900 365 -740 Weight 134 kg 134 kg Intake: IV 2300 900 600 Sodium Chloride 0.9% 1, 300 900 600 000 ml @ 75 mls/hr IV . [id number] [facility] Rx#:[id number] Oral 240 Output: Gastric Drainage 0 Drainage 75 40 Right Abdomen 75 40 Urine 445 180 2139 Uretheral (Harrison) 700 1300 Estimated Blood Loss 50 Other: Voiding Method Toilet Indwelling Catheter Indwelling Catheter # Voids 3 - Labs CBC & Chem 7: 12/17/19 05:49 12/17/19 05:49 Labs: Abnormal Lab Results - Last 24 Hours (Table) 12/17/19 12/17/19 Range/Units 05:49 05:49 RBC 3.94 L (4.30-5.90) m/uL Hgb 10.0 L D (13.0-17.5) gm/dL Hct 31.8 L (39.0-53.0) % RDW 16.8 H (11.5-15.5) % Lymphocytes # 0.4 L (1.0-4.8) k/uL Sodium 135 L (137-145) mmol/L Glucose 134 H (74-99) mg/dL
[2019-12-17] MEDS: SENNOSIDES 8.6 MG TAB PO SCH ×2 (10:56→20:18)
--- NOTE | 2019-12-17 13:01 | P.PN ---
Subjective Progress Note Date: 12/17/19 Principal diagnosis: 59-year-old with history of rectal cancer in a colostomy in his cancer is in remission came in with compensative multiple episodes of nausea vomiting. Patient had a KUB x-ray which did not show any bowel obstruction. Patient denied any fever chills. Patient has multiple hospitalizations for similar complaints in the past at the time patient was treated for constipation and patient was discharged home patient this time says he is not constipated he didn 't move his bowels today. Patient didn't have any vomiting that wasn't evidenced by nursing staff but is still complaining of nausea patient was started on Zofran patient is also on Protonix. Patient denied any fever fever chills. Patient has nonspecific diffuse abdominal pain which is moderate in severity without any significant subjective tenderness 12/15/2019 Patient is seen and evaluated in follow-up today. Patient states he continues to have nausea although no vomiting associated. Patient states he also is having almost no output in the colostomy and told nursing staff that he drained a small amount of liquid stool last night with no output today noted. Patient continues to have abdominal discomfort and is awaiting CT of the abdomen and pelvis. Surgery is following. Currently no reports of chest pain, shortness of breath, or palpitations. Patient is afebrile. 12/16/2019 Patient is seen and evaluated in follow-up today and continues to have abdominal discomfort and underwent CT of the abdomen and pelvis showing a large right anterior abdominal wall hernia containing multiple loops of small bowel. Patient is scheduled to undergo hernia repair in the morning with Dr. talbert. Patient continues to have very minimal liquid stool output noted in the colostomy. Currently no reports of chest pain, shortness of breath, or palpitations. Patient is afebrile. No reports of vomiting the patient continues to have nausea. Patient requesting pain medications often before at scheduled time. Patient stated to have increased amounts of pain medication ready status post surgery as he was told he will be having extreme amounts of pain. Patient appears to be pain seeking at times. 12/17/2019 Patient is seen in follow-up today status post car serrated incisional hernia repair and is being closely monitored. Patient continues to have severe abdominal discomfort noted on the right lower and mid abdominal area. Patient remains on clear liquids and states he has not been eating very much as he has continued nausea with no active vomiting. Patient continues to request pain medications and is currently receiving IV Dilaudid every 2 hours as needed. Currently no reports of chest pain, shortness of breath, or palpitations. Patient is afebrile. Discussed with the patient about increasing activity as tolerated and getting up out of the bed and he states he is unable to due to the severe amount of pain. Patient also instructed to continue using incentive spi rometer at least 10 times every hour while awake and patient states he does not like to use the incentive spirometer. Discussed with the patient about the risks versus benefits and patient verbalizes understanding. Recent labs and vital signs within normal limits. Objective - Vital Signs Vital signs: Vital Signs Temp 97.9 F 12/17/19 11:41 Pulse 88 12/17/19 11:41 Resp 18 12/17/19 11:41 BP 139/75 12/17/19 11:41 Pulse Ox 95 12/17/19 11:41 Intake & Output 12/16/19 12/17/19 12/17/19 18:59 06:59 18:59 Intake Total 2300 1140 Output Total 400 775 Balance 1900 365 Weight 134 kg 134 kg Intake: IV 2300 900 Sodium Chloride 0.9% 1, 300 900 000 ml @ 75 mls/hr IV . [id number] [facility] Rx#:[id number] Oral 240 Output: Gastric Drainage 0 Drainage 75 Right Abdomen 75 Urine 350 700 Uretheral (Ocasio) 700 Estimated Blood Loss 50 Other: Voiding Method Toilet Indwelling Catheter Indwelling Catheter # Voids 3 - Exam GENERAL: The patient is alert and oriented x3, not in any acute distress. Obese HEENT: Pupils are round and equally reacting to light. EOMI. No scleral icterus. No conjunctival pallor. Normocephalic, atraumatic. No pharyngeal erythema. No thyromegaly. CARDIOVASCULAR: S1 and S2 present. No murmurs, rubs, or gallops. PULMONARY: Chest is clear to auscultation, no wheezing or crackles. ABDOMEN: Soft, tender upon palpation, obese, nondistended, hypoactive bowel sounds. No palpable organomegaly. Patient has a colostomy bag on the left side with a minimal amount of liquid brown stool noted. JANET drain noted of the right lower quadrant MUSCULOSKELETAL: No joint swelling or deformity. EXTREMITIES: No cyanosis, clubbing, or pedal edema. NEUROLOGICAL: Gross neurological examination did not reveal any focal deficits. SKIN: No rashes. - Labs CBC & Chem 7: 12/17/19 05:49 12/17/19 05:49 Labs: Abnormal Lab Results - Last 24 Hours (Table) 12/17/19 12/17/19 Range/Units 05:49 05:49 RBC 3.94 L (4.30-5.90) m/uL Hgb 10.0 L D (13.0-17.5) gm/dL Hct 31.8 L (39.0-53.0) % RDW 16.8 H (11.5-15.5) % Lymphocytes # 0.4 L (1.0-4.8) k/uL Sodium 135 L (137-145) mmol/L Glucose 134 H (74-99) mg/dL Assessment and Plan Assessment: -Nausea vomiting: Vomiting resolved patient will be started on Protonix, e tiology is not clear no evidence of bowel obstruction. Patient will be treated symptomatically there may be a psychosomatic component. Surgery is following. Patient underwent incarcerated incisional hernia repair with Dr. 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 Scant amount of liquid brown stool noted in the colostomy bag today -Morbid obesity -Gastroesophageal reflux disease -Chronic low back pain with neuropathy -Hypertension -DVT prophylaxis with subcutaneous heparin Plan: Continue with current medications, management, and symptomatic treatment. Postop day #1 for incisional hernia repair. Discussed with the patient at length about increasing activity and getting up out of the bed along with the use of incentive spirometer at least 10 times every hour while awake. Surgery is following. Patient diet is now clear liquids and tolerating with intermittent periods of nausea. No active vomiting noted. Further recommendations to follow. Avoid IV narcotics as much as possible.
[2019-12-18] MEDS: HYDROmorphone 1 MG/ML 1 ML SYRINGE IVP PRN ×10 (01:28→22:40)
[2019-12-18] MEDS: HYDROcodone/APAP 10-325MG 1 EACH TAB PO PRN ×4 (02:30→22:33)
[2019-12-18] MEDS: KETOROLAC 30 MG/ML 1 ML VIAL IVP SCH ×2 (05:48→11:14)
[2019-12-18] MEDS: SODIUM CHLORIDE 0.9% 1,000 ML IV SCH (07:50)
[2019-12-18] MEDS: PANTOPRAZOLE 40 MG/10 ML VIAL IVP SCH (07:51)
[2019-12-18] MEDS: SENNOSIDES 8.6 MG TAB PO SCH ×2 (07:51→20:17)
[2019-12-18] MEDS: HEPARIN SODIUM,PORCINE 5,000 UNIT/ML 1 ML VIAL SQ SCH ×2 (07:51→16:00)
[2019-12-18] MEDS: LACTATED RINGERS 1,000 ML IV SCH (07:52)
--- NOTE | 2019-12-18 09:22 | P.PN ---
<Lisa Williamson Carter - Last Filed: 12/18/19 09:15> Subjective Progress Note Date: 12/18/19 CHIEF COMPLAINT: Abdominal pain HISTORY OF PRESENT ILLNESS: Patient is status post repair of incarcerated incisional hernia with mesh and enterolysis. POD #2. Patient examined at the bedside this morning. Patient reports abdominal pain this morning but states it is slightly improved from yesterday. He is receiving [place] and Dilaudid. Ocasio catheter was removed yesterday. Patient is voiding without difficulty. He is tolerating diet without nausea or vomiting. Ostomy with stool noted. He has been ambulating in the room. Vital signs stable. He is afebrile. PHYSICAL EXAM: VITAL SIGNS: Reviewed. GENERAL: Well-developed in no acute distress. HEENT: No sclera icterus. Extraocular movements grossly intact. Moist buccal mucosa. Head is atraumatic, normocephalic. ABDOMEN: Soft. Nondistended. Dressing clean dry and intact. JANET drain with serosanguineous drainage. Ostomy with stool and gas noted. Abdominal binder present. NEUROLOGIC: Alert and oriented. Cranial nerves II through XII grossly intact. ASSESSMENT: 1. Abdominal pain, nausea 2. History of rectal cancer 3. Incarcerated incisional hernia PLAN: -Continue diet as tolerated -Pain control. Patient refused epidural. Continue IV Dilaudid and [place]. Patient refusing Toradol. -Incentive spirometry -Continue activity as tolerated -Monitor JANET drain output -Patient requesting to speak with Fanny Villarreal today regarding his ostomy. Voicemail left for Fanny regarding request. Nurse practitioner note has been reviewed by physician. Signing provider agrees with the documented findings, assessment, and plan of care. Objective - Vital Signs Vital signs: Vital Signs Temp 97.8 F 12/18/19 05:00 Pulse 87 12/18/19 05:00 Resp 18 12/18/19 05:00 BP 177/87 12/18/19 05:00 Pulse Ox 94 L 12/18/19 05:00 Intake & Output 12/17/19 12/18/19 12/18/19 18:59 06:59 18:59 Intake Total 600 1190 Output Total 1340 Balance -740 1190 Weight 134 kg Intake: IV 600 600 Sodium Chloride 0.9% 1, 600 600 000 ml @ 75 mls/hr IV . [id number] [facility] Rx#:[id number] Oral 590 Output: Drainage 40 Right Abdomen 40 Urine 1300 Uretheral (Ocasio) 1300 Other: Voiding Method Indwelling Catheter Indwelling Catheter Urinal - Labs CBC & Chem 7: 12/17/19 05:49 12/17/19 05:49 <Dru Lawson - Last Filed: 12/18/19 12:54> Subjective As above. Patient seems to be doing better. Pain is better controlled. He is out of bed in the chair. Tolerating diet. Start weaning pain meds tomorrow. Objective - Vital Signs Vital signs: Vital Signs Temp 97.5 F L 12/18/19 11:49 Pulse 77 12/18/19 11:49 Resp 17 12/18/19 11:49 BP 172/78 12/18/19 11:49 Pulse Ox 96 12/18/19 11:49 Intake & Output 12/17/19 12/18/19 12/18/19 18:59 06:59 18:59 Intake Total 600 1190 Output Total 1340 Balance -740 1190 Weight 134 kg 134 kg Intake: IV 600 600 Sodium Chloride 0.9% 1, 600 600 000 ml @ 75 mls/hr IV . [id number] [facility] Rx#:[id number] Oral 590 Output: Drainage 40 Right Abdomen 40 Urine 1300 Uretheral (Ocasio) 1300 Other: Voiding Method Indwelling Catheter Indwelling Catheter Urinal - Labs CBC & Chem 7: 12/17/19 05:49 12/17/19 05:49
--- NOTE | 2019-12-18 10:27 | P.PN ---
Subjective Progress Note Date: 12/18/19 Principal diagnosis: 59-year-old with history of rectal cancer in a colostomy in his cancer is in remission came in with compensative multiple episodes of nausea vomiting. Patient had a KUB x-ray which did not show any bowel obstruction. Patient denied any fever chills. Patient has multiple hospitalizations for similar complaints in the past at the time patient was treated for constipation and patient was discharged home patient this time says he is not constipated he didn 't move his bowels today. Patient didn't have any vomiting that wasn't evidenced by nursing staff but is still complaining of nausea patient was started on Zofran patient is also on Protonix. Patient denied any fever fever chills. Patient has nonspecific diffuse abdominal pain which is moderate in severity without any significant subjective tenderness 12/15/2019 Patient is seen and evaluated in follow-up today. Patient states he continues to have nausea although no vomiting associated. Patient states he also is having almost no output in the colostomy and told nursing staff that he drained a small amount of liquid stool last night with no output today noted. Patient continues to have abdominal discomfort and is awaiting CT of the abdomen and pelvis. Surgery is following. Currently no reports of chest pain, shortness of breath, or palpitations. Patient is afebrile. 12/16/2019 Patient is seen and evaluated in follow-up today and continues to have abdominal discomfort and underwent CT of the abdomen and pelvis showing a large right anterior abdominal wall hernia containing multiple loops of small bowel. Patient is scheduled to undergo hernia repair in the morning with Dr. talbert. Patient continues to have very minimal liquid stool output noted in the colostomy. Currently no reports of chest pain, shortness of breath, or palpitations. Patient is afebrile. No reports of vomiting the patient continues to have nausea. Patient requesting pain medications often before at scheduled time. Patient stated to have increased amounts of pain medication ready status post surgery as he was told he will be having extreme amounts of pain. Patient appears to be pain seeking at times. 12/17/2019 Patient is seen in follow-up today status post car serrated incisional hernia repair and is being closely monitored. Patient continues to have severe abdominal discomfort noted on the right lower and mid abdominal area. Patient remains on clear liquids and states he has not been eating very much as he has continued nausea with no active vomiting. Patient continues to request pain medications and is currently receiving IV Dilaudid every 2 hours as needed. Currently no reports of chest pain, shortness of breath, or palpitations. Patient is afebrile. Discussed with the patient about increasing activity as tolerated and getting up out of the bed and he states he is unable to due to the severe amount of pain. Patient also instructed to continue using incentive spi rometer at least 10 times every hour while awake and patient states he does not like to use the incentive spirometer. Discussed with the patient about the risks versus benefits and patient verbalizes understanding. Recent labs and vital signs within normal limits. 12/18/2019 Patient is seen and evaluated in follow-up after just walking down to the nursing station and down the entire hallway requesting pain medications with a steady gait. Patient has been up in the chair and abdominal binder is noted. Patient continues to have severe 10/10 pain he states and has been receiving Dilaudid every 2 hours although requesting it every hour and a half along with [place] 2 tabs every 6 hours and requesting that as well. Patient also has Toradol ordered but is refusing. Patient is on a dysphagia 3 chopped diet and tolerating with no reports of nausea or vomiting noted. Patient does have some stool and gas noted in the ostomy. Patient requesting another consult with Fanny Villarreal ostomy nurse. No reports of chest pain, shortness of breath, or palpitations. Patient is afebrile. JANET drain noted with serosanguinous fluid. Objective - Vital Signs Vital signs: Vital Signs Temp 97.8 F 12/18/19 05:00 Pulse 87 12/18/19 05:00 Resp 18 12/18/19 05:00 BP 177/87 12/18/19 05:00 Pulse Ox 94 L 12/18/19 05:00 Intake & Output 12/17/19 12/18/19 12/18/19 18:59 06:59 18:59 Intake Total 600 1190 Output Total 1340 Balance -740 1190 Weight 134 kg Intake: IV 600 600 Sodium Chloride 0.9% 1, 600 600 000 ml @ 75 mls/hr IV . [id number] [facility] Rx#:[id number] Oral 590 Output: Drainage 40 Right Abdomen 40 Urine 1300 Uretheral (Ocasio) 1300 Other: Voiding Method Indwelling Catheter Indwelling Catheter Urinal - Exam GENERAL: The patient is alert and oriented x3, not in any acute distress. Obese HEENT: Pupils are round and equally reacting to light. EOMI. No scleral icterus. No conjunctival pallor. Normocephalic, atraumatic. No pharyngeal erythema. No thyromegaly. CARDIOVASCULAR: S1 and S2 present. No murmurs, rubs, or gallops. PULMONARY: Chest is clear to auscultation, no wheezing or crackles. ABDOMEN: Soft, tender upon palpation, obese, nondistended, positive bowel sounds noted. No palpable organomegaly. Patient has a colostomy bag on the left side with liquid brown stool noted. JANET drain noted of the right lower quadrant of serosanguineous fluid MUSCULOSKELETAL: No joint swelling or deformity. EXTREMITIES: No cyanosis, clubbing, or pedal edema. NEUROLOGICAL: Gross neurological examination did not reveal any focal deficits. SKIN: No rashes. - Labs CBC & Chem 7: 12/17/19 05:49 12/17/19 05:49 Assessment and Plan Assessment: -Nausea vomiting: Vomiting resolved Patient underwent incarcerated incisional hernia repair with Dr. 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 liquid brown stool and gas noted in the colostomy bag today -Morbid obesity -Gastroesophageal reflux disease -Chronic low back pain with neuropathy -Hypertension -DVT prophylaxis with subcutaneous heparin Plan: Continue with current medications, management, and symptomatic treatment. Postop day #2 for incisional hernia repair. Patient has been increasing activity and has been up and out of the bed with no issues. Patient is using abdominal binder. Ocasio catheter removed and patient has been urinating with no reports of dysuria or retention. Surgery is following. Patient diet advanced to dysphagia 3 chopped and tolerating with no reports of nausea or vomiting. Patient continues to request IV pain medication along with [place] sooner than recommended and has attempted to fire current nurse as he states she has not been bringing his pain medications on time. Patient often becoming belligerent with staff about pain medications. Patient requesting another consult with Fanny Villarreal ostomy nurse and is pending at this time. Further recommendations to follow. Avoid IV narcotics as much as possible. Possible discharge in 24-48 hours.
[2019-12-19] MEDS: HEPARIN SODIUM,PORCINE 5,000 UNIT/ML 1 ML VIAL SQ SCH ×4 (00:04→22:43)
[2019-12-19] MEDS: HYDROcodone/APAP 10-325MG 1 EACH TAB PO PRN ×4 (00:04→22:43)
[2019-12-19] MEDS: HYDROmorphone 1 MG/ML 1 ML SYRINGE IVP PRN ×11 (01:06→23:43)
[2019-12-19] MEDS: SODIUM CHLORIDE 0.9% 1,000 ML IV SCH ×2 (04:04→12:26)
[2019-12-19] MEDS: PANTOPRAZOLE 40 MG/10 ML VIAL IVP SCH (07:39)
[2019-12-19] MEDS: SENNOSIDES 8.6 MG TAB PO SCH ×2 (07:39→21:26)
[2019-12-19] MEDS: LACTATED RINGERS 1,000 ML IV SCH (07:40)
--- NOTE | 2019-12-19 09:28 | P.PN ---
<Lisa Williamson - Last Filed: 12/19/19 11:03> Subjective Progress Note Date: 12/19/19 CHIEF COMPLAINT: Abdominal pain HISTORY OF PRESENT ILLNESS: Patient is status post repair of incarcerated incisional hernia with mesh and enterolysis. POD #3. Patient examined at the bedside this morning. Patient reports improvement in pain overall. He is receiving [place] and Dilaudid. Patient states he is not ready to have his Dilaudid dosing decreased today. He is ambulating in his room. Tolerating diet. No nausea or vomiting. Ostomy with stool noted. Vital signs stable. He is afebrile. PHYSICAL EXAM: VITAL SIGNS: Reviewed. GENERAL: Well-developed in no acute distress. HEENT: No sclera icterus. Extraocular movements grossly intact. Moist buccal mucosa. Head is atraumatic, normocephalic. ABDOMEN: Soft. Nondistended. Dressing clean dry and intact. JAENT drain with serosanguineous drainage. Ostomy with stool and gas noted. Abdominal binder present. NEUROLOGIC: Alert and oriented. Cranial nerves II through XII grossly intact. ASSESSMENT: 1. Abdominal pain, nausea 2. History of rectal cancer 3. Incarcerated incisional hernia PLAN: -Continue diet as tolerated -Pain control. Patient refused epidural and Toradol. Continue IV Dilaudid and [place]. Patient states he is not ready to have his dilaudid dosing decreased today. He is agreeable to decreasing this tomorrow. Will decrease Dilaudid from Q2 hours to Q3 hours starting tomorrow -Incentive spirometry -Continue activity as tolerated -Monitor JANET drain output -Spoke with Dayanara Williamson RN, who will come see patient today regarding his ostomy per his request Nurse practitioner note has been reviewed by physician. Signing provider agrees with the documented findings, assessment, and plan of care. Objective - Vital Signs Vital signs: Vital Signs Temp 98 F 12/19/19 04:51 Pulse 81 12/19/19 04:51 Resp 18 12/19/19 04:51 BP 164/89 12/19/19 04:51 Pulse Ox 97 12/19/19 04:51 Intake & Output 12/18/19 12/19/19 12/19/19 18:59 06:59 18:59 Intake Total 160 220 Output Total 70 Balance 160 150 Weight 134 kg Intake: Intake, IV Titration 160 220 Amount Lactated Ringers 1,000 ml 160 220 @ 20 mls/hr IV .Q24H [facility] Rx#:[id number] Output: Drainage 70 Right Abdomen 70 Other: Voiding Method Urinal Urinal - Labs CBC & Chem 7: 12/17/19 05:49 12/17/19 05:49 <Dru Lawson - Last Filed: 12/19/19 11:12> Subjective Patient doing better today. Pain is improving. No nausea or vomiting. Ostomy function. Begin weaning Dilaudid tomorrow. Anticipate discharge Sunday. Hopefully can discharge drain before removal. Objective - Vital Signs Vital signs: Vital Signs Temp 98 F 12/19/19 04:51 Pulse 81 12/19/19 04:51 Resp 18 12/19/19 04:51 BP 164/89 12/19/19 04:51 Pulse Ox 97 12/19/19 04:51 Intake & Output 12/18/19 12/19/19 12/19/19 18:59 06:59 18:59 Intake Total 160 220 Output Total 70 Balance 160 150 Weight 134 kg Intake: Intake, IV Titration 160 220 Amount Lactated Ringers 1,000 ml 160 220 @ 20 mls/hr IV .Q24H [facility] Rx#:[id number] Output: Drainage 70 Right Abdomen 70 Other: Voiding Method Urinal Urinal Urinal - Labs CBC & Chem 7: 12/17/19 05:49 12/17/19 05:49
[2019-12-19] MEDS: TRIAMTERENE-HCTZ 37.5-25MG 1 EACH TAB PO SCH (13:11)
--- NOTE | 2019-12-19 15:39 | P.PN ---
Subjective Progress Note Date: 12/19/19 Principal diagnosis: 59-year-old with history of rectal cancer in a colostomy in his cancer is in remission came in with compensative multiple episodes of nausea vomiting. Patient had a KUB x-ray which did not show any bowel obstruction. Patient denied any fever chills. Patient has multiple hospitalizations for similar complaints in the past at the time patient was treated for constipation and patient was discharged home patient this time says he is not constipated he didn 't move his bowels today. Patient didn't have any vomiting that wasn't evidenced by nursing staff but is still complaining of nausea patient was started on Zofran patient is also on Protonix. Patient denied any fever fever chills. Patient has nonspecific diffuse abdominal pain which is moderate in severity without any significant subjective tenderness 12/15/2019 Patient is seen and evaluated in follow-up today. Patient states he continues to have nausea although no vomiting associated. Patient states he also is having almost no output in the colostomy and told nursing staff that he drained a small amount of liquid stool last night with no output today noted. Patient continues to have abdominal discomfort and is awaiting CT of the abdomen and pelvis. Surgery is following. Currently no reports of chest pain, shortness of breath, or palpitations. Patient is afebrile. 12/16/2019 Patient is seen and evaluated in follow-up today and continues to have abdominal discomfort and underwent CT of the abdomen and pelvis showing a large right anterior abdominal wall hernia containing multiple loops of small bowel. Patient is scheduled to undergo hernia repair in the morning with Dr. talbert. Patient continues to have very minimal liquid stool output noted in the colostomy. Currently no reports of chest pain, shortness of breath, or palpitations. Patient is afebrile. No reports of vomiting the patient continues to have nausea. Patient requesting pain medications often before at scheduled time. Patient stated to have increased amounts of pain medication ready status post surgery as he was told he will be having extreme amounts of pain. Patient appears to be pain seeking at times. 12/17/2019 Patient is seen in follow-up today status post car serrated incisional hernia repair and is being closely monitored. Patient continues to have severe abdominal discomfort noted on the right lower and mid abdominal area. Patient remains on clear liquids and states he has not been eating very much as he has continued nausea with no active vomiting. Patient continues to request pain medications and is currently receiving IV Dilaudid every 2 hours as needed. Currently no reports of chest pain, shortness of breath, or palpitations. Patient is afebrile. Discussed with the patient about increasing activity as tolerated and getting up out of the bed and he states he is unable to due to the severe amount of pain. Patient also instructed to continue using incentive spi rometer at least 10 times every hour while awake and patient states he does not like to use the incentive spirometer. Discussed with the patient about the risks versus benefits and patient verbalizes understanding. Recent labs and vital signs within normal limits. 12/18/2019 Patient is seen and evaluated in follow-up after just walking down to the nursing station and down the entire hallway requesting pain medications with a steady gait. Patient has been up in the chair and abdominal binder is noted. Patient continues to have severe 10/10 pain he states and has been receiving Dilaudid every 2 hours although requesting it every hour and a half along with [place] 2 tabs every 6 hours and requesting that as well. Patient also has Toradol ordered but is refusing. Patient is on a dysphagia 3 chopped diet and tolerating with no reports of nausea or vomiting noted. Patient does have some stool and gas noted in the ostomy. Patient requesting another consult with Fanny Villarreal ostomy nurse. No reports of chest pain, shortness of breath, or palpitations. Patient is afebrile. JANET drain noted with serosanguinous fluid. 12/19/2019 Patient is seen in follow-up today and has been increasing activity as tolerated. Patient has been up to the bathroom and has been sitting in the chair and states he feels better in the chair. Patient continues to use abdominal binder. Patient continues to be an IV pain medications along with oral narcotics and discussed with the patient at length about lengthening the time in between IV narcotic use as he will not be going home with this. Patient verbalized understanding. Patient states he tends to have more pain when increasing activity although knows he has to keep moving in order to get better. Some brown loose stool noted in the ostomy and patient is tolerating diet. No reports of nausea or vomiting noted. Patient currently denies any chest pain, shortness of breath, or palpitations. Patient is afebrile. Will continue to monitor closely. Will repeat a.m. labs. JANET drain noted and will monitor output closely. Objective - Vital Signs Vital signs: Vital Signs Temp 97.5 F L 12/19/19 11:02 Pulse 78 12/19/19 11:02 Resp 16 12/19/19 11:02 BP 141/68 12/19/19 11:02 Pulse Ox 98 12/19/19 11:02 Intake & Output 12/18/19 12/19/19 12/19/19 18:59 06:59 18:59 Intake Total 160 220 Output Total 70 15 Balance 160 150 -15 Weight 134 kg Intake: Intake, IV Titration 160 220 Amount Lactated Ringers 1,000 ml 160 220 @ 20 mls/hr IV .Q24H [facility] Rx#:[id number] Output: Drainage 70 15 Right Abdomen 70 15 Other: Voiding Method Urinal Urinal Urinal # Voids 2 - Exam GENERAL: The patient is alert and oriented x3, not in any acute distress. Obese HEENT: Pupils are round and equally reacting to light. EOMI. No scleral icterus. No conjunctival pallor. Normocephalic, atraumatic. No pharyngeal erythema. No thyromegaly. CARDIOVASCULAR: S1 and S2 present. No murmurs, rubs, or gallops. PULMONARY: Chest is clear to auscultation, no wheezing or crackles. ABDOMEN: Soft, tender upon palpation, obese, nondistended, positive bowel sounds noted. No palpable organomegaly. Patient has a colostomy bag on the left side with liquid brown stool noted. JANET drain noted of the right lower quadrant of serosanguineous fluid MUSCULOSKELETAL: No joint swelling or deformity. EXTREMITIES: No cyanosis, clubbing, or pedal edema. NEUROLOGICAL: Gross neurological examination did not reveal any focal deficits. SKIN: No rashes. - Labs CBC & Chem 7: 12/17/19 05:49 12/17/19 05:49 Assessment and Plan Assessment: -Nausea vomiting: Vomiting resolved Patient underwent incarcerated incisional hernia repair with Dr. 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 liquid brown stool and gas noted in the colostomy bag today -Morbid obesity -Gastroesophageal reflux disease -Chronic low back pain with neuropathy -Hypertension -DVT prophylaxis with subcutaneous heparin Plan: Continue with current medications, management, and symptomatic treatment. Postop day #3 for incisional hernia repair. Patient has been increasing activity and has been up and out of the bed with no issues. Patient is using abdominal binder. Surgery is following. Patient diet advanced to dysphagia 3 chopped and tolerating with no reports of nausea or vomiting. Patient continues to request IV pain medication along with Bryan sooner than recommended. Patient states he is stretching the use of IV narcotics out a little longer. Discussed with the patient at length about limiting the amount of IV narcotics as he will not be going home with these upon discharge. Will increase the length between dosages starting tomorrow. Further recommendations to follow. Avoid IV narcotics as much as possible.
[2019-12-19] MEDS: ONDANSETRON 4 MG/2 ML VIAL IVP PRN (21:29)
[2019-12-20] MEDS: HYDROmorphone 1 MG/ML 1 ML SYRINGE IVP PRN ×7 (02:49→20:43)
[2019-12-20] MEDS: SODIUM CHLORIDE 0.9% 1,000 ML IV SCH ×2 (02:51→12:27)
[2019-12-20] MEDS: LACTATED RINGERS 1,000 ML IV SCH (05:15)
[2019-12-20] MEDS ORDERED: HYDROmorphone 1 MG/ML 1 ML SYRINGE IVP PRN (06:00)
[2019-12-20] MEDS: HYDROcodone/APAP 10-325MG 1 EACH TAB PO PRN ×3 (06:08→18:16)
[2019-12-20 06:29] LABS: African American GFR (CKD) >90 (>60 ml/min/1.73 sqM); Anion Gap 8 mmol/L; Anisocytosis Slight; Basophils % (A) 0 %; Blood Urea Nitrogen 12 mg/dL (9-20); Calcium 9.6 mg/dL (8.4-10.2); Carbon Dioxide 31 mmol/L (22-30); Chloride 98 mmol/L (98-107); Eosinophils # (A) 0.1 k/uL (0-0.7); Eosinophils % (A) 2 %; Glucose 100 mg/dL (74-99); HCT 32.4 % (39.0-53.0); Hypochromasia Marked; Lymphocytes # (A) 0.8 k/uL (1.0-4.8); Lymphocytes % (A) 16 %; MCH 25.3 pg (25.0-35.0); MCHC 30.8 g/dL (31.0-37.0); Mean Platelet Volume 6.8; Monocytes # (A) 0.5 k/uL (0-1.0); Monocytes % (A) 9 %; Neutrophils # (A) 3.4 k/uL (1.3-7.7); Neutrophils % (A) 71 %; Non-African American GFR(CKD) >90 (>60 ml/min/1.73 sqM); Platelet Count 193 k/uL (150-450); Potassium 4.6 mmol/L (3.5-5.1); RBC 3.95 m/uL (4.30-5.90); RDW 17.2 % (11.5-15.5); Sodium 137 mmol/L (137-145); WBC 4.8 k/uL (3.8-10.6)
[2019-12-20] MEDS: TRIAMTERENE-HCTZ 37.5-25MG 1 EACH TAB PO SCH (08:03)
[2019-12-20] MEDS: SENNOSIDES 8.6 MG TAB PO SCH ×2 (08:03→20:43)
[2019-12-20] MEDS: PANTOPRAZOLE 40 MG/10 ML VIAL IVP SCH (08:03)
[2019-12-20] MEDS: HEPARIN SODIUM,PORCINE 5,000 UNIT/ML 1 ML VIAL SQ SCH ×2 (08:03→15:46)
--- NOTE | 2019-12-20 13:04 | P.PN ---
Subjective Progress Note Date: 12/20/19 CHIEF COMPLAINT: Incarcerated incisional hernia HISTORY OF PRESENT ILLNESS: The patient is a 59-year-old male status post repair of incarcerated incisional hernia, 12/16/2019. He is postoperative day 4. He is tolerating diet. He has chronic pain syndrome. He complains of constant incisional pain. He does report the abdominal binder did help however prohibited output from his ostomy bag. He has discontinued his abdominal binder. Currently he is being weaned off Dilaudid IV. Patient reports moderate pain since decreasing his scheduled Dilaudid of every 1 hour to every 3 hours. ROS: No reports of nausea and vomiting. Has bowel movements via ostomy. No fevers or chills. No new chest pain. PHYSICAL EXAM: VITAL SIGNS: Reviewed CONSTITUTIONAL: Well developed and in no acute distress. EYES: Conjuctivae without sclera icterus. Extraocular movements grossly intact. HEAD, EARS, NOSE, THROAT: Moist buccal mucosa. Head is atraumatic, normocephalic. Hears conversational speech. No nasal drainage. NECK: Supple. No RESPIRATORY: Non-labored respirations and equal bilateral excursions. CARDIOVASCULAR: Palpable 2+ radial pulses. ABDOMEN: Patient discontinued abdominal binder. Incision intact. Ostomy patent. MUSCULOSKELETAL: No gross deformity of the lower extremities noted. SKIN: Good skin turgor. Well perfused. NEUROLOGIC: Cranial nerves II through XII grossly intact. No focal or lateralizing signs. PSYCH: Appropriate affect. Alert and oriented to person, place and time. CLINICAL LABS: White blood cell count normal ASSESSMENT: 1. Incisional hernia status post repair 2. Personal history of rectal cancer with ostomy now reversed 3. Chronic pain needs PLAN: 1. He has complex chronic pain needs where he may benefit from a pain specialist. 2. In the interim, continued Dilaudid per weaning schedule Objective - Vital Signs Vital signs: Vital Signs Temp 98.9 F 12/20/19 12:13 Pulse 84 12/20/19 12:13 Resp 14 12/20/19 12:13 BP 137/70 12/20/19 12:13 Pulse Ox 96 12/20/19 12:13 Intake & Output 12/19/19 12/20/19 12/20/19 18:59 06:59 18:59 Intake Total 545 Output Total 80 50 Balance -80 495 Intake: Intake, IV Titration 545 Amount Sodium Chloride 0.9% 1, 545 000 ml @ 75 mls/hr IV . [id number] [facility] Rx#:[id number] Output: Drainage 30 50 Right Abdomen 30 50 Urine 50 Other: Voiding Method Urinal Urinal Urinal # Voids 2 1 - Labs CBC & Chem 7: 12/20/19 05:40 12/20/19 05:40 Labs: Abnormal Lab Results - Last 24 Hours (Table) 12/20/19 12/20/19 Range/Units 05:40 05:40 RBC 3.95 L (4.30-5.90) m/uL Hgb 10.0 L (13.0-17.5) gm/dL Hct 32.4 L (39.0-53.0) % MCHC 30.8 L (31.0-37.0) g/dL RDW 17.2 H (11.5-15.5) % Lymphocytes # 0.8 L (1.0-4.8) k/uL Carbon Dioxide 31 H (22-30) mmol/L Glucose 100 H (74-99) mg/dL Assessment and Plan (1) Incisional hernia of anterior abdominal wall with obstruction Current Visit: Yes Status: Acute Code(s): K43.0 - INCISIONAL HERNIA WITH OBSTRUCTION, WITHOUT GANGRENE SNOMED Code(s): 742821849 (2) Chronic pain syndrome Current Visit: Yes Status: Acute Code(s): G89.4 - CHRONIC PAIN SYNDROME SNOMED Code(s): 054066947 (3) History of rectal cancer Current Visit: Yes Status: Acute Code(s): Z85.048 - PRSNL HX OF MALIG NEOPLM OF RECTUM, RECTOSIG JUNCT, AND ANUS SNOMED Code(s): 053503082 (4) Morbid obesity due to excess calories Current Visit: Yes Status: Acute Code(s): E66.01 - MORBID (SEVERE) OBESITY DUE TO EXCESS CALORIES SNOMED Code(s): 585539662 (5) BMI 40.0-44.9, adult Current Visit: Yes Status: Acute Code(s): Z68.41 - BODY MASS INDEX (BMI) 40.0-44.9, ADULT SNOMED Code(s): 102124903 (6) History of creation of ostomy Current Visit: Yes Status: Acute Code(s): Z93.9 - ARTIFICIAL OPENING STATUS, UNSPECIFIED SNOMED Code(s): 328929280
[2019-12-21] MEDS: HEPARIN SODIUM,PORCINE 5,000 UNIT/ML 1 ML VIAL SQ SCH ×4 (00:12→23:54)
[2019-12-21] MEDS: HYDROcodone/APAP 10-325MG 1 EACH TAB PO PRN ×5 (00:12→23:54)
[2019-12-21] MEDS: HYDROmorphone 1 MG/ML 1 ML SYRINGE IVP PRN ×8 (00:59→22:52)
[2019-12-21] MEDS: SODIUM CHLORIDE 0.9% 1,000 ML IV SCH ×2 (04:03→17:03)
[2019-12-21] MEDS: LACTATED RINGERS 1,000 ML IV SCH (05:14)
[2019-12-21] MEDS: SENNOSIDES 8.6 MG TAB PO SCH ×2 (07:36→20:44)
[2019-12-21] MEDS: PANTOPRAZOLE 40 MG/10 ML VIAL IVP SCH (07:37)
[2019-12-21] MEDS: TRIAMTERENE-HCTZ 37.5-25MG 1 EACH TAB PO SCH (07:43)
[2019-12-21] MEDS: ONDANSETRON 4 MG/2 ML VIAL IVP PRN ×3 (13:50→23:54)
--- NOTE | 2019-12-21 16:44 | P.PN ---
Subjective Progress Note Date: 12/21/19 CHIEF COMPLAINT: Incarcerated incisional hernia HISTORY OF PRESENT ILLNESS: The patient is a 59-year-old male status post repair of incarcerated incisional hernia, 12/16/2019. He is postoperative day 5. He reports difficulty with pain management however at the time of my assessment, he reports improvement of his pain management with oral [place] including Dilaudid. He reports his pain is worse with movement. He was offered additional alternatives including assessment with pain specialist and/or Toradol for which he declined. ROS: No reports of nausea and vomiting. Has bowel movements via ostomy. No fevers or chills. No new chest pain. PHYSICAL EXAM: VITAL SIGNS: Reviewed CONSTITUTIONAL: Well developed and in no acute distress. EYES: Conjuctivae without sclera icterus. Extraocular movements grossly intact. HEAD, EARS, NOSE, THROAT: Moist buccal mucosa. Head is atraumatic, no rmocephalic. Hears conversational speech. No nasal drainage. NECK: Supple. No RESPIRATORY: Non-labored respirations and equal bilateral excursions. CARDIOVASCULAR: Palpable 2+ radial pulses. ABDOMEN: Dressing clean dry and intact. Ostomy. An function. MUSCULOSKELETAL: No gross deformity of the lower extremities noted. SKIN: Good skin turgor. Well perfused. NEUROLOGIC: Cranial nerves II through XII grossly intact. No focal or lateralizing signs. PSYCH: Appropriate affect. Alert and oriented to person, place and time. CLINICAL LABS: White blood cell count normal ASSESSMENT: 1. Incisional hernia status post repair 2. Personal history of rectal cancer with ostomy now reversed 3. Chronic pain syndrome PLAN: 1. His at home pain needs were assessed where he confirms having adequate pain management for home. 2. Continue current pain regimen. Objective - Vital Signs Vital signs: Vital Signs Temp 97.8 F 12/21/19 12:13 Pulse 81 12/21/19 12:13 Resp 16 12/21/19 12:13 BP 134/62 12/21/19 12:13 Pulse Ox 95 12/21/19 12:13 Intake & Output 12/20/19 12/21/19 12/21/19 18:59 06:59 18:59 Intake Total 600 140 600 Output Total 50 Balance 600 140 550 Weight 134 kg Intake: IV 600 140 600 Sodium Chloride 0.9% 1, 600 140 600 000 ml @ 75 mls/hr IV . [id number] [facility] Rx#:[id number] Output: Urine 50 Other: Voiding Method Urinal Urinal Urinal # Voids 2 3 2 - Labs CBC & Chem 7: 12/20/19 05:40 12/20/19 05:40 Assessment and Plan (1) Incisional hernia of anterior abdominal wall with obstruction Current Visit: Yes Status: Acute Code(s): K43.0 - INCISIONAL HERNIA WITH OB STRUCTION, WITHOUT GANGRENE SNOMED Code(s): 720372663 (2) Chronic pain syndrome Current Visit: Yes Status: Acute Code(s): G89.4 - CHRONIC PAIN SYNDROME SNOMED Code(s): 537696940 (3) History of rectal cancer Current Visit: Yes Status: Acute Code(s): Z85.048 - PRSNL HX OF MALIG NEOPLM OF RECTUM, RECTOSIG JUNCT, AND ANUS SNOMED Code(s): 970488520 (4) Morbid obesity due to excess calories Current Visit: Yes Status: Acute Code(s): E66.01 - MORBID (SEVERE) OBESITY DUE TO EXCESS CALORIES SNOMED Code(s): 562308072 (5) BMI 40.0-44.9, adult Current Visit: Yes Status: Acute Code(s): Z68.41 - BODY MASS INDEX (BMI) 40.0-44.9, ADULT SNOMED Code(s): 463770574 (6) History of creation of ostomy Current Visit: Yes Status: Acute Code(s): Z93.9 - ARTIFICIAL OPENING STATUS, UNSPECIFIED SNOMED Code(s): 381848673
[2019-12-22] MEDS: LACTATED RINGERS 1,000 ML IV SCH (01:23)
--- NOTE | 2019-12-22 01:38 | P.PN ---
Subjective Progress Note Date: 12/20/19 Principal diagnosis: incarcerated incisional hernia repair 59-year-old with history of rectal cancer in a colostomy in his cancer is in remission came in with compensative multiple episodes of nausea vomiting. Patient had a KUB x-ray which did not show any bowel obstruction. Patient denied any fever chills. Patient has multiple hospitalizations for similar complaints in the past at the time patient was treated for constipation and patient was discharged home patient this time says he is not constipated he didn't move his bowels today. Patient didn't have any vomiting that wasn't evidenced by nursing staff but is still complaining of nausea patient was started on Zofran patient is also on Protonix. Patient denied any fever fever chills. Patient has nonspecific diffuse abdominal pain which is moderate in severity without any significant subjective tenderness 12/15/2019 Patient is seen and evaluated in follow-up today. Patient states he continues to have nausea although no vomiting associated. Patient states he also is having almost no output in the colostomy and told nursing staff that he drained a small amount of liquid stool last night with no output today noted. Patient continues to have abdominal discomfort and is awaiting CT of the abdomen and pe lvis. Surgery is following. Currently no reports of chest pain, shortness of breath, or palpitations. Patient is afebrile. 12/16/2019 Patient is seen and evaluated in follow-up today and continues to have abdominal discomfort and underwent CT of the abdomen and pelvis showing a large right anterior abdominal wall hernia containing multiple loops of small bowel. Patient is scheduled to undergo hernia repair in the morning with Dr. talbert. Patient continues to have very minimal liquid stool output noted in the colostomy. Currently no reports of chest pain, shortness of breath, or palpitations. Patient is afebrile. No reports of vomiting the patient continues to have nausea. Patient requesting pain medications often before at scheduled time. Patient stated to have increased amounts of pain medication ready status post surgery as he was told he will be having extreme amounts of pain. Patient appears to be pain seeking at times. 12/17/2019 Patient is seen in follow-up today status post car serrated incisional hernia repair and is being closely monitored. Patient continues to have severe abdominal discomfort noted on the right lower and mid abdominal area. Patient remains on clear liquids and states he has not been eating very much as he has continued nausea with no active vomiting. Patient continues to request pain medications and is currently receiving IV Dilaudid every 2 hours as needed. Currently no reports of chest pain, shortness of breath, or palpitations. Patient is afebrile. Discussed with the patient about increasing activity as tolerated and getting up out of the bed and he states he is unable to due to the severe amount of pain. Patient also instructed to continue using incentive spirometer at least 10 times every hour while awake and patient states he does not like to use the incentive spirometer. Discussed with the patient about the risks versus benefits and patient verbalizes understanding. Recent labs and vital signs within normal limits. 12/18/2019 Patient is seen and evaluated in follow-up after just walking down to the nursing station and down the entire hallway requesting pain medications with a steady gait. Patient has been up in the chair and abdominal binder is noted. Patient continues to have severe 10/10 pain he states and has been receiving Dilaudid every 2 hours although requesting it every hour and a half along with [place] 2 tabs every 6 hours and requesting that as well. Patient also has Toradol ordered but is refusing. Patient is on a dysphagia 3 chopped diet and tolerating with no reports of nausea or vomiting noted. Patient does have some stool and gas noted in the ostomy. Patient requesting another consult with Fanny Villarreal ostomy nurse. No reports of chest pain, shortness of breath, or palpitations. Patient is afebrile. JANET drain noted with serosanguinous fluid. 12/19/2019 Patient is seen in follow-up today and has been increasing activity as tolerated. Patient has been up to the bathroom and has been sitting in the chair and states he feels better in the chair. Patient continues to use abdominal binder. Patient continues to be an IV pain medications along with oral narcotics and discussed with the patient at length about lengthening the time in between IV narcotic use as he will not be going home with this. Patient verbalized understanding. Patient states he tends to have more pain when increasing activity although knows he has to keep moving in order to get better. Some brown loose stool noted in the ostomy and patient is tolerating diet. No reports of nausea or vomiting noted. Patient currently denies any chest pain, shortness of breath, or palpitations. Patient is afebrile. Will continue to monitor closely. Will repeat a.m. labs. JANET drain noted and will monitor output closely. 12/20/2019 Patient is currently sitting in a chair comfortably. Still complaining of constant incisional pain. No complaints of chest pain or shortness of breath. We will avoid IV narcotic pain medications. Abdominal binder was discontinued. Patient has been afebrile. No nausea vomiting or diarrhea. Tolerating oral diet. General surgery is following. Current medications reviewed. Objective - Vital Signs Vital signs: Vital Signs Temp 98.0 F 12/20/19 20:30 Pulse 87 12/20/19 20:30 Resp 16 12/20/19 20:30 BP 148/83 12/20/19 20:30 Pulse Ox 97 12/20/19 20:30 Intake & Output 12/20/19 12/20/19 12/21/19 06:59 18:59 06:59 Intake Total 545 600 Output Total 50 Balance 495 600 Intake: IV 600 Sodium Chloride 0.9% 1, 600 000 ml @ 75 mls/hr IV . [id number] [facility] Rx#:[id number] Intake, IV Titration 545 Amount Sodium Chloride 0.9% 1, 545 000 ml @ 75 mls/hr IV . [id number] [facility] Rx#:[id number] Output: Drainage 50 Right Abdomen 50 Other: Voiding Method Urinal Urinal # Voids 1 2 - Exam GENERAL: The patient is alert and oriented x3, not in any acute distress. Obese HEENT: Pupils are round and equally reacting to light. EOMI. No scleral icterus. No conjunctival pallor. Normocephalic, atraumatic. No pharyngeal erythema. No thyromegaly. CARDIOVASCULAR: S1 and S2 present. No murmurs, rubs, or gallops. PULMONARY: Chest is clear to auscultation, no wheezing or crackles. ABDOMEN: Soft, tender upon palpation, obese, nondistended, positive bowel sounds noted. No palpable organomegaly. Patient has a colostomy bag on the left side with liquid brown stool noted. JANET drain noted of the right lower quadrant of serosanguineous fluid MUSCULOSKELETAL: No joint swelling or deformity. EXTREMITIES: No cyanosis, clubbing, or pedal edema. NEUROLOGICAL: Gross neurological examination did not reveal any focal deficits. SKIN: No rashes. - Labs CBC & Chem 7: 12/20/19 05:40 12/20/19 05:40 Labs: Abnormal Lab Results - Last 24 Hours (Table) 12/20/19 12/20/19 Range/Units 05:40 05:40 RBC 3.95 L (4.30-5.90) m/uL Hgb 10.0 L (13.0-17.5) gm/dL Hct 32.4 L (39.0-53.0) % MCHC 30.8 L (31.0-37.0) g/dL RDW 17.2 H (11.5-15.5) % Lymphocytes # 0.8 L (1.0-4.8) k/uL Carbon Dioxide 31 H (22-30) mmol/L Glucose 100 H (74-99) mg/dL Assessment and Plan Assessment: -Nausea vomiting: Vomiting resolved Patient underwent incarcerated incisional hernia repair with Dr. 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 liquid brown stool and gas noted in the colostomy bag today -Morbid obesity -Gastroesophageal reflux disease -Chronic low back pain with neuropathy -Hypertension -DVT prophylaxis with subcutaneous heparin Plan: Continue with current medications, management, and symptomatic treatment. Postop day #4 for incisional hernia repair. Patient has been increasing activity and has been up and out of the bed with no issues. Patient is using abdominal binder. Surgery is following. Patient diet advanced to dysphagia 3 chopped and tolerating with no reports of nausea or vomiting. Patient continues to request IV pain medication along with [place] sooner than recommended. Patient states he is stretching the use of IV narcotics out a little longer. Discussed with the patient at length about limiting the amount of IV narcotics as he will not be going home with these upon discharge. Will increase the length between dosages starting tomorrow. Further recommendations to follow. Avoid IV narcotics as much as possible. Time with Patient: Greater than 30
--- NOTE | 2019-12-22 01:42 | P.PN ---
Subjective Progress Note Date: 12/21/19 Principal diagnosis: incarcerated incisional hernia repair 59-year-old with history of rectal cancer in a colostomy in his cancer is in remission came in with compensative multiple episodes of nausea vomiting. Patient had a KUB x-ray which did not show any bowel obstruction. Patient denied any fever chills. Patient has multiple hospitalizations for similar complaints in the past at the time patient was treated for constipation and patient was discharged home patient this time says he is not constipated he didn't move his bowels today. Patient didn't have any vomiting that wasn't evidenced by nursing staff but is still complaining of nausea patient was started on Zofran patient is also on Protonix. Patient denied any fever fever chills. Patient has nonspecific diffuse abdominal pain which is moderate in severity without any significant subjective tenderness 12/15/2019 Patient is seen and evaluated in follow-up today. Patient states he continues to have nausea although no vomiting associated. Patient states he also is having almost no output in the colostomy and told nursing staff that he drained a small amount of liquid stool last night with no output today noted. Patient continues to have abdominal discomfort and is awaiting CT of the abdomen and pe lvis. Surgery is following. Currently no reports of chest pain, shortness of breath, or palpitations. Patient is afebrile. 12/16/2019 Patient is seen and evaluated in follow-up today and continues to have abdominal discomfort and underwent CT of the abdomen and pelvis showing a large right anterior abdominal wall hernia containing multiple loops of small bowel. Patient is scheduled to undergo hernia repair in the morning with Dr. talbert. Patient continues to have very minimal liquid stool output noted in the colostomy. Currently no reports of chest pain, shortness of breath, or palpitations. Patient is afebrile. No reports of vomiting the patient continues to have nausea. Patient requesting pain medications often before at scheduled time. Patient stated to have increased amounts of pain medication ready status post surgery as he was told he will be having extreme amounts of pain. Patient appears to be pain seeking at times. 12/17/2019 Patient is seen in follow-up today status post car serrated incisional hernia repair and is being closely monitored. Patient continues to have severe abdominal discomfort noted on the right lower and mid abdominal area. Patient remains on clear liquids and states he has not been eating very much as he has continued nausea with no active vomiting. Patient continues to request pain medications and is currently receiving IV Dilaudid every 2 hours as needed. Currently no reports of chest pain, shortness of breath, or palpitations. Patient is afebrile. Discussed with the patient about increasing activity as tolerated and getting up out of the bed and he states he is unable to due to the severe amount of pain. Patient also instructed to continue using incentive spirometer at least 10 times every hour while awake and patient states he does not like to use the incentive spirometer. Discussed with the patient about the risks versus benefits and patient verbalizes understanding. Recent labs and vital signs within normal limits. 12/18/2019 Patient is seen and evaluated in follow-up after just walking down to the nursing station and down the entire hallway requesting pain medications with a steady gait. Patient has been up in the chair and abdominal binder is noted. Patient continues to have severe 10/10 pain he states and has been receiving Dilaudid every 2 hours although requesting it every hour and a half along with [place] 2 tabs every 6 hours and requesting that as well. Patient also has Toradol ordered but is refusing. Patient is on a dysphagia 3 chopped diet and tolerating with no reports of nausea or vomiting noted. Patient does have some stool and gas noted in the ostomy. Patient requesting another consult with Fanny Villarreal ostomy nurse. No reports of chest pain, shortness of breath, or palpitations. Patient is afebrile. JANET drain noted with serosanguinous fluid. 12/19/2019 Patient is seen in follow-up today and has been increasing activity as tolerated. Patient has been up to the bathroom and has been sitting in the chair and states he feels better in the chair. Patient continues to use abdominal binder. Patient continues to be an IV pain medications along with oral narcotics and discussed with the patient at length about lengthening the time in between IV narcotic use as he will not be going home with this. Patient verbalized understanding. Patient states he tends to have more pain when increasing activity although knows he has to keep moving in order to get better. Some brown loose stool noted in the ostomy and patient is tolerating diet. No reports of nausea or vomiting noted. Patient currently denies any chest pain, shortness of breath, or palpitations. Patient is afebrile. Will continue to monitor closely. Will repeat a.m. labs. JANET drain noted and will monitor output closely. 12/20/2019 Patient is currently sitting in a chair comfortably. Still complaining of constant incisional pain. No complaints of chest pain or shortness of breath. We will avoid IV narcotic pain medications. Abdominal binder was discontinued. Patient has been afebrile. No nausea vomiting or diarrhea. Tolerating oral diet. General surgery is following. 12/21/2019 Patient is still complaining of incisional pain. Requesting IV pain medications. Currently on [place] 10 every 6 hours and also Dilaudid 1 mg daily 3. Patient is to see pain specialist. General surgery is on board. Otherwise patient was advised to increase activity. Output in the colostomy bag was n oted. Patient has been afebrile. Follow-up repeat labs tomorrow. Anticipate discharge in next 1-2 days. Current medications reviewed. Objective - Vital Signs Vital signs: Vital Signs Temp 97.9 F 12/21/19 21:25 Pulse 99 12/21/19 21:25 Resp 20 12/21/19 21:25 BP 169/98 12/21/19 21:25 Pulse Ox 95 12/21/19 21:25 Intake & Output 12/21/19 12/21/19 12/22/19 06:59 18:59 06:59 Intake Total 140 600 Output Total 50 Balance 140 550 Weight 134 kg Intake: IV 140 600 Sodium Chloride 0.9% 1, 140 600 000 ml @ 75 mls/hr IV . [id number] [facility] Rx#:[id number] Output: Urine 50 Other: Voiding Method Urinal Urinal # Voids 3 2 - Exam GENERAL: The patient is alert and oriented x3, not in any acute distress. Obese HEENT: Pupils are round and equally reacting to light. EOMI. No scleral icterus. No conjunctival pallor. Normocephalic, atraumatic. No pharyngeal erythema. No thyromegaly. CARDIOVASCULAR: S1 and S2 present. No murmurs, rubs, or gallops. PULMONARY: Chest is clear to auscultation, no wheezing or crackles. ABDOMEN: Soft, tender upon palpation, obese, nondistended, positive bowel sounds noted. No palpable organomegaly. Patient has a colostomy bag on the left side with liquid brown stool noted. JANET drain noted of the right lower quadrant of serosanguineous fluid MUSCULOSKELETAL: No joint swelling or deformity. EXTREMITIES: No cyanosis, clubbing, or pedal edema. NEUROLOGICAL: Gross neurological examination did not reveal any focal deficits. SKIN: No rashes. - Labs CBC & Chem 7: 12/20/19 05:40 12/20/19 05:40 Assessment and Plan Assessment: -Nausea vomiting: Vomiting resolved Patient underwent incarcerated incisional hernia repair with Dr. 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 liquid brown stool and gas noted in the colostomy bag today -Morbid obesity -Gastroesophageal reflux disease -Chronic low back pain with neuropathy -Hypertension -DVT prophylaxis with subcutaneous heparin Plan: Continue with current medications, management, and symptomatic treatment. Postop day #5 for incisional hernia repair. Patient has been increasing activity and has been up and out of the bed with no issues. diet advanced to dysphagia 3 chopped and tolerating with no reports of nausea or vomiting. Patient continues to request IV pain medication along with [place] sooner than recommended. Patient states he is stretching the use of IV narcotics out a li ttle longer. Discussed with the patient at length about limiting the amount of IV narcotics as he will not be going home with these upon discharge. Will increase the length between dosages. Further recommendations to follow. Avoid IV narcotics as much as possible. Time with Patient: Greater than 30
[2019-12-22] MEDS: HYDROmorphone 1 MG/ML 1 ML SYRINGE IVP PRN ×7 (03:17→23:28)
[2019-12-22] MEDS: ONDANSETRON 4 MG/2 ML VIAL IVP PRN ×2 (03:17→11:07)
[2019-12-22 06:25] LABS: Anisocytosis Slight; Basophils % (A) 0 %; Eosinophils % (A) 0 %; HCT 34.4 % (39.0-53.0); HGB 10.3 gm/dL (13.0-17.5); Hypochromasia Marked; Lymphocytes # (A) 0.5 k/uL (1.0-4.8); Lymphocytes % (A) 8 %; MCH 24.5 pg (25.0-35.0); MCV 81.8 fL (80.0-100.0); Mean Platelet Volume 6.9; Monocytes # (A) 0.6 k/uL (0-1.0); Monocytes % (A) 9 %; Neutrophils # (A) 5.5 k/uL (1.3-7.7); Neutrophils % (A) 82 %; Platelet Count 246 k/uL (150-450); RBC 4.21 m/uL (4.30-5.90); RDW 16.7 % (11.5-15.5); WBC 6.7 k/uL (3.8-10.6)
[2019-12-22 06:34] LABS: African American GFR (CKD) >90 (>60 ml/min/1.73 sqM); Anion Gap 8 mmol/L; Blood Urea Nitrogen 13 mg/dL (9-20); Calcium 9.6 mg/dL (8.4-10.2); Carbon Dioxide 30 mmol/L (22-30); Chloride 96 mmol/L (98-107); Glucose 136 mg/dL (74-99); Non-African American GFR(CKD) >90 (>60 ml/min/1.73 sqM); Potassium 4.2 mmol/L (3.5-5.1); Sodium 134 mmol/L (137-145)
[2019-12-22] MEDS: SENNOSIDES 8.6 MG TAB PO SCH ×2 (07:05→20:51)
[2019-12-22] MEDS: HEPARIN SODIUM,PORCINE 5,000 UNIT/ML 1 ML VIAL SQ SCH ×3 (07:05→23:27)
[2019-12-22] MEDS: TRIAMTERENE-HCTZ 37.5-25MG 1 EACH TAB PO SCH (07:06)
[2019-12-22] MEDS ORDERED: PANTOPRAZOLE 40 MG TABLET PO SCH (09:00)
--- NOTE | 2019-12-22 09:40 | P.PN ---
Subjective Progress Note Date: 12/22/19 Principal diagnosis: Incarcerated hernia Patient was doing well up until yesterday afternoon or evening when he began experiencing nausea and subsequent he had some vomiting. Feels nauseated still. Ostomy function has been diminished. JANET drain output minimal. Labs noted. No fevers. No tachycardia. Objective - Vital Signs Vital signs: Vital Signs Temp 98.8 F 12/22/19 05:00 Pulse 95 12/22/19 05:00 Resp 12 12/22/19 05:00 BP 161/84 12/22/19 05:00 Pulse Ox 96 12/22/19 05:00 Intake & Output 12/21/19 12/22/19 12/22/19 18:59 06:59 18:59 Intake Total 600 1200 Output Total 50 200 Balance 550 1000 Weight 134 kg Intake: IV 600 900 Sodium Chloride 0.9% 1, 600 900 000 ml @ 75 mls/hr IV . [id number] [facility] Rx#:[id number] Oral 300 Output: Drainage 0 Right Abdomen 0 Urine 50 Stool 0 Oral Regurgitation 200 Other: Voiding Method Urinal Urinal # Voids 2 1 - Exam Abdomen: Soft, nondistended, dressing clean and dry, JANET serous, mild incisional tenderness, ostomy with small amount of stool - Labs CBC & Chem 7: 12/22/19 05:39 12/22/19 05:39 Labs: Abnormal Lab Results - Last 24 Hours (Table) 12/22/19 12/22/19 Range/Units 05:39 05:39 RBC 4.21 L (4.30-5.90) m/uL Hgb 10.3 L (13.0-17.5) gm/dL Hct 34.4 L (39.0-53.0) % MCH 24.5 L (25.0-35.0) pg MCHC 30.0 L (31.0-37.0) g/dL RDW 16.7 H (11.5-15.5) % Lymphocytes # 0.5 L (1.0-4.8) k/uL Sodium 134 L (137-145) mmol/L Chloride 96 L (98-107) mmol/L Glucose 136 H (74-99) mg/dL Assessment and Plan (1) Incisional hernia of anterior abdominal wall with obstruction Narrative/Plan: Patient with episodes of nausea and vomiting. Check abdominal x-rays. Switch to clear liquids for now. We'll remove JANET drain given the minimal output. Continue ambulation. Current Visit: Yes Status: Acute Code(s): K43.0 - INCISIONAL HERNIA WITH OBSTRUCTION, WITHOUT GANGRENE SNOMED Code(s): 888661031
[2019-12-22] MEDS: SODIUM CHLORIDE 0.9% 1,000 ML IV SCH ×2 (10:25→23:28)
--- NOTE | 2019-12-22 11:44 | XR ---
EXAMINATION TYPE: XR abdomen 2V DATE OF EXAM: 12/22/2019 11:27 AM CLINICAL HISTORY: Recent hernia surgery. Nausea and vomiting and right-sided abdominal pain today. TECHNIQUE: Single supine KUB image of the abdomen is obtained. COMPARISON: 12/13/2019. FINDINGS: Rectal stent is seen. Contrast from the recent CT has progressed in the colon. There are di lated loops of small bowel measuring up to 4.2 cm. Mild progression from the prior x-ray of 12/13/2019 . Evaluation for pneumoperitoneum is somewhat limited given the right basilar airspace disease. No bay spicious calcification in the abdomen or pelvis. Scattered air-fluid levels in the midline abdomen. R ectal sutures are incidentally noted. Moderate degenerative changes spine. Left-sided ostomy is seen. Advanced degenerative change of the right hip. IMPRESSION: 1. Progression in caliber of small bowel in comparison to the prior 12/13/2019. Small bowel obstructio n versus postop ileus are considerations. 2. Advanced arthropathy of the right hip. 3. Right basilar airspace disease may be on the basis of postoperative atelectasis.
[2019-12-22] MEDS: METOCLOPRAMIDE 5 MG/ML 2 ML VIAL IVP SCH ×3 (12:00→23:28)
[2019-12-22] MEDS: HYDROcodone/APAP 10-325MG 1 EACH TAB PO PRN (12:00)
[2019-12-22] MEDS ORDERED: MAGNESIUM CITRATE 296 ML BOTTLE PO ONE (13:05)
--- NOTE | 2019-12-22 14:22 | XR ---
EXAMINATION TYPE: XR chest 1V portable DATE OF EXAM: 12/22/2019 Comparison: 10/13/2019 Clinical History: 59-year-old male pneumonia Findings: Heart normal size. Aorta and pulmonary vasculature within normal limits. Redemonstrated Chilaiditi sy ndrome. Low lung volumes. Strandy lower lung atelectasis. No consolidation or pleural effusion otherw ise seen. Impression: Hypoventilatory changes. Chilaiditi syndrome. Some strandy lower lung atelectasis.
[2019-12-22 14:51] LABS: ALT 8 U/L (4-49); AST 14 U/L (17-59); African American GFR (CKD) >90 (>60 ml/min/1.73 sqM); Albumin 3.9 g/dL (3.5-5.0); Alkaline Phosphatase 54 U/L (38-126); Anion Gap 8 mmol/L; Blood Urea Nitrogen 15 mg/dL (9-20); Calcium 9.4 mg/dL (8.4-10.2); Carbon Dioxide 30 mmol/L (22-30); Chloride 96 mmol/L (98-107); Glucose 114 mg/dL (74-99); Non-African American GFR(CKD) >90 (>60 ml/min/1.73 sqM); Potassium 4.1 mmol/L (3.5-5.1); Sodium 134 mmol/L (137-145); Total Bilirubin 0.5 mg/dL (0.2-1.3); Total Protein 6.9 g/dL (6.3-8.2)
--- NOTE | 2019-12-22 15:18 | P.PN ---
Subjective Progress Note Date: 12/22/19 Principal diagnosis: 59-year-old with history of rectal cancer in a colostomy in his cancer is in remission came in with compensative multiple episodes of nausea vomiting. Patient had a KUB x-ray which did not show any bowel obstruction. Patient denied any fever chills. Patient has multiple hospitalizations for similar complaints in the past at the time patient was treated for constipation and patient was discharged home patient this time says he is not constipated he didn 't move his bowels today. Patient didn't have any vomiting that wasn't evidenced by nursing staff but is still complaining of nausea patient was started on Zofran patient is also on Protonix. Patient denied any fever fever chills. Patient has nonspecific diffuse abdominal pain which is moderate in severity without any significant subjective tenderness 12/15/2019 Patient is seen and evaluated in follow-up today. Patient states he continues to have nausea although no vomiting associated. Patient states he also is having almost no output in the colostomy and told nursing staff that he drained a small amount of liquid stool last night with no output today noted. Patient continues to have abdominal discomfort and is awaiting CT of the abdomen and pelvis. Surgery is following. Currently no reports of chest pain, shortness of breath, or palpitations. Patient is afebrile. 12/16/2019 Patient is seen and evaluated in follow-up today and continues to have abdominal discomfort and underwent CT of the abdomen and pelvis showing a large right anterior abdominal wall hernia containing multiple loops of small bowel. Patient is scheduled to undergo hernia repair in the morning with Dr. talbert. Patient continues to have very minimal liquid stool output noted in the colostomy. Currently no reports of chest pain, shortness of breath, or palpitations. Patient is afebrile. No reports of vomiting the patient continues to have nausea. Patient requesting pain medications often before at scheduled time. Patient stated to have increased amounts of pain medication ready status post surgery as he was told he will be having extreme amounts of pain. Patient appears to be pain seeking at times. 12/17/2019 Patient is seen in follow-up today status post car serrated incisional hernia repair and is being closely monitored. Patient continues to have severe abdominal discomfort noted on the right lower and mid abdominal area. Patient remains on clear liquids and states he has not been eating very much as he has continued nausea with no active vomiting. Patient continues to request pain medications and is currently receiving IV Dilaudid every 2 hours as needed. Currently no reports of chest pain, shortness of breath, or palpitations. Patient is afebrile. Discussed with the patient about increasing activity as tolerated and getting up out of the bed and he states he is unable to due to the severe amount of pain. Patient also instructed to continue using incentive spi rometer at least 10 times every hour while awake and patient states he does not like to use the incentive spirometer. Discussed with the patient about the risks versus benefits and patient verbalizes understanding. Recent labs and vital signs within normal limits. 12/18/2019 Patient is seen and evaluated in follow-up after just walking down to the nursing station and down the entire hallway requesting pain medications with a steady gait. Patient has been up in the chair and abdominal binder is noted. Patient continues to have severe 10/10 pain he states and has been receiving Dilaudid every 2 hours although requesting it every hour and a half along with Ceres 2 tabs every 6 hours and requesting that as well. Patient also has Toradol ordered but is refusing. Patient is on a dysphagia 3 chopped diet and tolerating with no reports of nausea or vomiting noted. Patient does have some stool and gas noted in the ostomy. Patient requesting another consult with Fanny Villarreal ostomy nurse. No reports of chest pain, shortness of breath, or palpitations. Patient is afebrile. JANET drain noted with serosanguinous fluid. 12/19/2019 Patient is seen in follow-up today and has been increasing activity as tolerated. Patient has been up to the bathroom and has been sitting in the chair and states he feels better in the chair. Patient continues to use abdominal binder. Patient continues to be an IV pain medications along with oral narcotics and discussed with the patient at length about lengthening the time in between IV narcotic use as he will not be going home with this. Patient verbalized understanding. Patient states he tends to have more pain when increasing activity although knows he has to keep moving in order to get better. Some brown loose stool noted in the ostomy and patient is tolerating diet. No reports of nausea or vomiting noted. Patient currently denies any chest pain, shortness of breath, or palpitations. Patient is afebrile. Will continue to monitor closely. Will repeat a.m. labs. JANET drain noted and will monitor output closely. 12/20/2019 Patient is currently sitting in a chair comfortably. Still complaining of constant incisional pain. No complaints of chest pain or shortness of breath. We will avoid IV narcotic pain medications. Abdominal binder was discontinued. Patient has been afebrile. No nausea vomiting or diarrhea. Tolerating oral diet. General surgery is following. 12/21/2019 Patient is still complaining of incisional pain. Requesting IV pain medications. Currently on Ceres 10 every 6 hours and also Dilaudid 1 mg daily 3. Patient is to see pain specialist. General surgery is on board. Otherwise patient was advised to increase activity. Output in the colostomy bag was noted. Patient has been afebrile. Follow-up repeat labs tomorrow. Anticipate discharge in next 1-2 days. 12/22/2019 Patient is seen and evaluated in follow-up and states he has had some increased nausea and vomiting since last night and has not been tolerating diet. Surgery is following. Patient continues to have incisional pain and low output in the ostomy and is refusing anything by mouth at this time. Patient states he feels increasing pain and generalized weakness. Patient states he is having some shortness of breath and feels it is due to the pain in his abdomen. Patient underwent abdominal x-ray showing a progression in the caliber of small bowel in comparison to the previous x-ray with consideration of possible small bowel obstruction versus postop ileus along with advanced arthropathy of the right hip and some right basilar airspace disease which may be likely due to postoperative atelectasis. 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 Discussed With the patient about the importance of using the marian ntive spirometer although he states he does not like to use it. No reports of chest pain. Patient is afebrile. Review of systems: Constitutional: Reports generalized weakness and fatigue, no reports of fevers or chills Cardiovascular: No reports of chest pain or palpitations Respiratory: Reports mild shortness of breath, no reports of cough GI: Reports nausea, vomiting, decreased colostomy output : No reports of dysuria or retention Neurovascular: Reports generalized weakness, no reports of numbness Active Medications Hydrocodone Bitart/Acetaminophen (Ceres 5-325) 1 each PO Q6HR PRN PRN Reason: Pain Heparin Sodium (Porcine) (Heparin) 5,000 unit SQ Q8HR [facility] Last Admin: 12/22/19 07:05 Dose: 5,000 unit Documented by: Hydromorphone HCl (Dilaudid) 1 mg IVP Q3HR PRN PRN Reason: Pain Last Admin: 12/22/19 13:40 Dose: 1 mg Documented by: Sodium Chloride (Saline 0.9%) 1,000 mls @ 75 mls/hr IV .[id number] [facility] Last Admin: 12/22/19 10:25 Dose: 75 mls/hr Documented by: Lactated Ringer's (Lactated Ringers) 1,000 mls @ 20 mls/hr IV .Q24H [facility] Last Admin: 12/22/19 01:23 Dose: Not Given Documented by: Metoclopramide HCl (Reglan) 10 mg IVP Q6HR [facility] Last Admin: 12/22/19 12:00 Dose: 10 mg Documented by: Naloxone HCl (Narcan) 0.2 mg IV Q2M PRN PRN Reason: Opioid Reversal Ondansetron HCl (Zofran Odt) 4 mg PO Q6H PRN PRN Reason: Nausea Ondansetron HCl (Zofran) 4 mg IVP Q4HR PRN PRN Reason: Nausea And Vomiting Last Admin: 12/22/19 11:07 Dose: 4 mg Documented by: Pantoprazole Sodium (Protonix) 40 mg IVP BID [facility] Polyethylene Glycol (Miralax) 17 gm PO BID PRN PRN Reason: Constipation Senna (Senokot) 8.6 mg PO BID [facility] Last Admin: 12/22/19 07:05 Dose: 8.6 mg Documented by: Simethicone (Mylicon Chew) 80 mg PO BID PRN PRN Reason: GAS Triamterene/HCTZ (Maxzide-25) 1 each PO DAILY [facility] Last Admin: 12/22/19 07:06 Dose: 1 each Documented by: : No reports of dysuria or retention Neurovascular: Reports generalized weakness, no reports of numbness Objective - Vital Signs Vital signs: Vital Signs Temp 98.8 F 12/22/19 05:00 Pulse 95 12/22/19 05:00 Resp 12 12/22/19 05:00 BP 161/84 12/22/19 05:00 Pulse Ox 96 12/22/19 05:00 Intake & Output 12/21/19 12/22/19 12/22/19 18:59 06:59 18:59 Intake Total 600 1200 Output Total 50 200 Balance 550 1000 Weight 134 kg Intake: IV 600 900 Sodium Chloride 0.9% 1, 600 900 000 ml @ 75 mls/hr IV . [id number] [facility] Rx#:[id number] Oral 300 Output: Drainage 0 Right Abdomen 0 Urine 50 Stool 0 Oral Regurgitation 200 Other: Voiding Method Urinal Urinal # Voids 2 1 - Exam GENERAL: The patient is alert and oriented x3, awake. Obese. Temp is 98.8F, pulse is 95, respirations are 12, blood pressure is 161/84, oxygen saturation is 96% on room air. HEENT: Pupils are round and equally reacting to light. EOMI. No scleral icterus. No conjunctival pallor. Normocephalic, atraumatic. No pharyngeal erythema. No thyromegaly. CARDIOVASCULAR: S1 and S2 present. No murmurs, rubs, or gallops. PULMONARY: Diminished breath sounds at the bases with no wheezing or crackles noted. ABDOMEN: Soft, tender upon palpation, obese, nondistended, positive bowel sounds noted. No palpable organomegaly. Patient has a colostomy bag on the left side with minimal liquid brown stool noted. JANET drain noted of the right lower quadrant of minimal serous fluid, scheduled to be removed today. MUSCULOSKELETAL: No joint swelling or deformity. EXTREMITIES: No cyanosis, clubbing, or pedal edema. NEUROLOGICAL: Gross neurological examination did not reveal any focal deficits. SKIN: No rashes. - Labs CBC & Chem 7: 12/22/19 05:39 12/22/19 14:00 Labs: Abnormal Lab Results - Last 24 Hours (Table) 12/22/19 12/22/19 12/22/19 Range/Units 05:39 05:39 14:00 RBC 4.21 L (4.30-5.90) m/uL Hgb 10.3 L (13.0-17.5) gm/dL Hct 34.4 L (39.0-53.0) % MCH 24.5 L (25.0-35.0) pg MCHC 30.0 L (31.0-37.0) g/dL RDW 16.7 H (11.5-15.5) % Lymphocytes # 0.5 L (1.0-4.8) k/uL Sodium 134 L 134 L (137-145) mmol/L Chloride 96 L 96 L (98-107) mmol/L Glucose 136 H 114 H (74-99) mg/dL AST 14 L (17-59) U/L Assessment and Plan Assessment: -Nausea vomiting: Patient underwent incarcerated incisional hernia repair with Dr. 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 Minimal liquid brown stool noted in the colostomy bag today -Morbid obesity -Gastroesophageal reflux disease -Chronic low back pain with neuropathy -Hypertension -DVT prophylaxis with subcutaneous heparin Plan: Continue with current medications, management, and symptomatic treatment. Posto p day #6 for incisional hernia repair. Patient having increasing abdominal discomfort along with nausea and vomiting that started last night. Patient underwent abdominal and chest x-ray as mentioned previously. Surgery following. Discussed with the patient about continuing to use incentive spirometer at least 10 times every hour while awake and the importance of it. Patient's diet decreased to clear liquids patient has been refusing all by mouth food and medications. Further recommendations to follow.
[2019-12-22] MEDS: PANTOPRAZOLE 40 MG/10 ML VIAL IVP SCH ×2 (15:51→20:52)
[2019-12-22] MEDS ORDERED: PANTOPRAZOLE 40 MG/10 ML VIAL IVP SCH (21:00)
[2019-12-23] MEDS: HYDROmorphone 1 MG/ML 1 ML SYRINGE IVP PRN ×7 (03:42→23:00)
[2019-12-23] MEDS: METOCLOPRAMIDE 5 MG/ML 2 ML VIAL IVP SCH ×4 (05:54→23:00)
[2019-12-23] MEDS: LACTATED RINGERS 1,000 ML IV SCH (06:48)
[2019-12-23 08:00] LABS: Anisocytosis Slight; Basophils % (A) 0 %; Eosinophils # (A) 0.1 k/uL (0-0.7); Eosinophils % (A) 2 %; HCT 32.3 % (39.0-53.0); HGB 9.8 gm/dL (13.0-17.5); Hypochromasia Marked; Lymphocytes # (A) 0.8 k/uL (1.0-4.8); Lymphocytes % (A) 17 %; MCH 25.1 pg (25.0-35.0); MCHC 30.4 g/dL (31.0-37.0); MCV 82.5 fL (80.0-100.0); Mean Platelet Volume 7.3; Monocytes # (A) 0.4 k/uL (0-1.0); Monocytes % (A) 8 %; Neutrophils # (A) 3.4 k/uL (1.3-7.7); Neutrophils % (A) 72 %; Platelet Count 182 k/uL (150-450); RBC 3.91 m/uL (4.30-5.90); RDW 16.7 % (11.5-15.5); WBC 4.7 k/uL (3.8-10.6)
--- NOTE | 2019-12-23 08:08 | CDI ---
Documentation Clarification Form Date: 12/23/2019 07:57:13 AM From: Mikala PayneSimpsonTYLER pereira, CCDS Admit Date: 12/15/2019 02:06:00 PM Patient Name: Jose Sevilla Visit Number: [id number] Discharge Date: ATTENTION: The Clinical Documentation Specialists (CDI) and [facility] Coding Staff appreciate your assistance in clarifying documentation. Please respond to the clarification below the line at the bottom and electronically sign. The CDI & [facility] Coding staff will review the response and follow-up if needed. Please note: Queries are made part of the Legal Health Record. If you have any questions, please contact the author of this message via ITS. Dr. Antonina Rodriguez: Patient is a 59 yo male with a history of rectal cancer in remission, status post colostomy who presented to the on 12/12 with abdominal pain & intractable nausea, vomiting & chills, no fever or SOB. Admitted as Observation. Coronavirus test was done on 12/21: Not detected. Patient history/risk factors: Rectal Cancer, GERD, Hypertension, Polyneuropathy, Osteoarthritis, Former smoker. Clinical Indicators: Diagnosed with an incarcerated incisional abdominal wall hernia without obstruction on 12/14, admitted as Inpatient and underwent repair of hernia with mesh on 12/15. VS 12/14: stable. Labs 12/12 (OBS): Hgb 12.2*, BUN 22^, Glucose 148^. 12/16: Hgb 10.0*, Na 135*, Glucose 134^. COVID 19 12/21: Negative Treatment 12/12: IV Dilaudid, IV Zofran, IV fluid bolus 1,000 mls @ 999/hr. 12/15: IV Decadron, IV Zofran, IV Cefazolin, IV Dilaudid, IV Fentanyl, IV Toradol. Consult: Surgery for repair of incisional hernia. In order to capture the severity of condition, please clarify if the above treatment/clinical indicators signify: COVID-19 Suspected COVID-19 ruled out Other, please specify Unable to determine (Last Form Revision: October 2019) COVID-19 [facility]
--- NOTE | 2019-12-23 08:26 | XR ---
EXAMINATION TYPE: XR abdomen 2V DATE OF EXAM: 12/23/2019 CLINICAL DATA: 59-year-old male nausea and vomiting, [facility] COMPARISON: 12/22/2019 FINDINGS: There seems to be persistent colon interposed below the right hemidiaphragm. Air-fluid levels at the hepatic flexure of the colon and throughout small bowel loops. Small bowel is dilated up to 6.0 cm ve rsus 6.3 cm, previously. Moderate stool left side of the colon. Metallic rectal stent remains in place. End-stage degenerative change of the right hip. IMPRESSION: Gassy abdomen with air-fluid levels throughout the colon and small bowel. Small bowel loops measure u p to 6.0 cm versus 6.3 cm, previously. Given involvement of the colon as well, marked generalized ile us is favored over obstruction.
[2019-12-23] MEDS: SENNOSIDES 8.6 MG TAB PO SCH ×2 (09:25→20:49)
[2019-12-23] MEDS: HEPARIN SODIUM,PORCINE 5,000 UNIT/ML 1 ML VIAL SQ SCH ×3 (09:25→23:00)
[2019-12-23] MEDS: TRIAMTERENE-HCTZ 37.5-25MG 1 EACH TAB PO SCH (09:26)
[2019-12-23] MEDS: PANTOPRAZOLE 40 MG/10 ML VIAL IVP SCH ×2 (09:26→20:50)
[2019-12-23] MEDS ORDERED: MAGNESIUM CITRATE 296 ML BOTTLE PO ONE (09:31)
--- NOTE | 2019-12-23 09:33 | P.PN ---
Subjective Progress Note Date: 12/23/19 Principal diagnosis: Incarcerated hernia Patient with no further vomiting since yesterday. He did drink one quarter of his citrate of magnesia yesterday without vomiting or significant increase in pain. He did have some firmer stool in the ostomy bag. Reviewing the x-rays from yesterday does suggest some constipation with in the colon just proximal to his loop colostomy. Some dilated small bowel loops and dilated colonic loops also noted. JANET drain out. He is afebrile. Objective - Vital Signs Vital signs: Vital Signs Temp 97.9 F 12/23/19 04:31 Pulse 82 12/23/19 08:25 Resp 18 12/23/19 08:25 BP 139/73 12/23/19 04:31 Pulse Ox 96 12/23/19 04:31 Intake & Output 12/22/19 12/23/19 12/23/19 18:59 06:59 18:59 Intake Total 600 825 Output Total 0 Balance 600 825 0 Intake: IV 600 825 Sodium Chloride 0.9% 1, 600 825 000 ml @ 75 mls/hr IV . [id number] [facility] Rx#:[id number] Output: Stool 0 Other: Voiding Method Urinal Urinal # Voids 3 - Exam Abdomen: Soft, mild tenderness, mild distention, ostomy with stool - Labs CBC & Chem 7: 12/23/19 06:00 12/22/19 14:00 Labs: Abnormal Lab Results - Last 24 Hours (Table) 12/22/19 12/23/19 Range/Units 14:00 06:00 RBC 3.91 L (4.30-5.90) m/uL Hgb 9.8 L (13.0-17.5) gm/dL Hct 32.3 L (39.0-53.0) % MCHC 30.4 L (31.0-37.0) g/dL RDW 16.7 H (11.5-15.5) % Lymphocytes # 0.8 L (1.0-4.8) k/uL Sodium 134 L (137-145) mmol/L Chloride 96 L (98-107) mmol/L Glucose 114 H (74-99) mg/dL AST 14 L (17-59) U/L Assessment and Plan (1) Incisional hernia of anterior abdominal wall with obstruction Narrative/Plan: X-rays yesterday reviewed. Constipation proximal to the ostomy appear to be continuing to his symptoms. He tolerated one quarter bottle of magnesium citrate. We'll provide one half bottle today and see how he tolerates that. Continue other stool softeners. Increase diet to full liquids. Current Visit: Yes Status: Acute Code(s): K43.0 - INCISIONAL HERNIA WITH OBSTRUCTION, WITHOUT GANGRENE SNOMED Code(s): 269350141
[2019-12-23] MEDS: ONDANSETRON 4 MG/2 ML VIAL IVP PRN ×2 (10:21→16:39)
[2019-12-23] MEDS: SODIUM CHLORIDE 0.9% 1,000 ML IV SCH ×2 (13:14→20:52)
[2019-12-23] MEDS: HYDROcodone/APAP 5-325MG 1 EACH TAB PO PRN (14:30)
--- NOTE | 2019-12-23 14:47 | P.PN ---
Subjective Progress Note Date: 12/23/19 Principal diagnosis: 59-year-old with history of rectal cancer in a colostomy in his cancer is in remission came in with compensative multiple episodes of nausea vomiting. Patient had a KUB x-ray which did not show any bowel obstruction. Patient denied any fever chills. Patient has multiple hospitalizations for similar complaints in the past at the time patient was treated for constipation and patient was discharged home patient this time says he is not constipated he didn 't move his bowels today. Patient didn't have any vomiting that wasn't evidenced by nursing staff but is still complaining of nausea patient was started on Zofran patient is also on Protonix. Patient denied any fever fever chills. Patient has nonspecific diffuse abdominal pain which is moderate in severity without any significant subjective tenderness 12/15/2019 Patient is seen and evaluated in follow-up today. Patient states he continues to have nausea although no vomiting associated. Patient states he also is having almost no output in the colostomy and told nursing staff that he drained a small amount of liquid stool last night with no output today noted. Patient continues to have abdominal discomfort and is awaiting CT of the abdomen and pelvis. Surgery is following. Currently no reports of chest pain, shortness of breath, or palpitations. Patient is afebrile. 12/16/2019 Patient is seen and evaluated in follow-up today and continues to have abdominal discomfort and underwent CT of the abdomen and pelvis showing a large right anterior abdominal wall hernia containing multiple loops of small bowel. Patient is scheduled to undergo hernia repair in the morning with Dr. talbert. Patient continues to have very minimal liquid stool output noted in the colostomy. Currently no reports of chest pain, shortness of breath, or palpitations. Patient is afebrile. No reports of vomiting the patient continues to have nausea. Patient requesting pain medications often before at scheduled time. Patient stated to have increased amounts of pain medication ready status post surgery as he was told he will be having extreme amounts of pain. Patient appears to be pain seeking at times. 12/17/2019 Patient is seen in follow-up today status post car serrated incisional hernia repair and is being closely monitored. Patient continues to have severe abdominal discomfort noted on the right lower and mid abdominal area. Patient remains on clear liquids and states he has not been eating very much as he has continued nausea with no active vomiting. Patient continues to request pain medications and is currently receiving IV Dilaudid every 2 hours as needed. Currently no reports of chest pain, shortness of breath, or palpitations. Patient is afebrile. Discussed with the patient about increasing activity as tolerated and getting up out of the bed and he states he is unable to due to the severe amount of pain. Patient also instructed to continue using incentive spi rometer at least 10 times every hour while awake and patient states he does not like to use the incentive spirometer. Discussed with the patient about the risks versus benefits and patient verbalizes understanding. Recent labs and vital signs within normal limits. 12/18/2019 Patient is seen and evaluated in follow-up after just walking down to the nursing station and down the entire hallway requesting pain medications with a steady gait. Patient has been up in the chair and abdominal binder is noted. Patient continues to have severe 10/10 pain he states and has been receiving Dilaudid every 2 hours although requesting it every hour and a half along with [place] 2 tabs every 6 hours and requesting that as well. Patient also has Toradol ordered but is refusing. Patient is on a dysphagia 3 chopped diet and tolerating with no reports of nausea or vomiting noted. Patient does have some stool and gas noted in the ostomy. Patient requesting another consult with Fanny Villarreal ostomy nurse. No reports of chest pain, shortness of breath, or palpitations. Patient is afebrile. JANET drain noted with serosanguinous fluid. 12/19/2019 Patient is seen in follow-up today and has been increasing activity as tolerated. Patient has been up to the bathroom and has been sitting in the chair and states he feels better in the chair. Patient continues to use abdominal binder. Patient continues to be an IV pain medications along with oral narcotics and discussed with the patient at length about lengthening the time in between IV narcotic use as he will not be going home with this. Patient verbalized understanding. Patient states he tends to have more pain when increasing activity although knows he has to keep moving in order to get better. Some brown loose stool noted in the ostomy and patient is tolerating diet. No reports of nausea or vomiting noted. Patient currently denies any chest pain, shortness of breath, or palpitations. Patient is afebrile. Will continue to monitor closely. Will repeat a.m. labs. JANET drain noted and will monitor output closely. 12/20/2019 Patient is currently sitting in a chair comfortably. Still complaining of constant incisional pain. No complaints of chest pain or shortness of breath. We will avoid IV narcotic pain medications. Abdominal binder was discontinued. Patient has been afebrile. No nausea vomiting or diarrhea. Tolerating oral diet. General surgery is following. 12/21/2019 Patient is still complaining of incisional pain. Requesting IV pain medications. Currently on [place] 10 every 6 hours and also Dilaudid 1 mg daily 3. Patient is to see pain specialist. General surgery is on board. Otherwise patient was advised to increase activity. Output in the colostomy bag was noted. Patient has been afebrile. Follow-up repeat labs tomorrow. Anticipate discharge in next 1-2 days. 12/22/2019 Patient is seen and evaluated in follow-up and states he has had some increased nausea and vomiting since last night and has not been tolerating diet. Surgery is following. Patient continues to have incisional pain and low output in the ostomy and is refusing anything by mouth at this time. Patient states he feels increasing pain and generalized weakness. Patient states he is having some shortness of breath and feels it is due to the pain in his abdomen. Patient underwent abdominal x-ray showing a progression in the caliber of small bowel in comparison to the previous x-ray with consideration of possible small bowel obstruction versus postop ileus along with advanced arthropathy of the right hip and some right basilar airspace disease which may be likely due to postoperative atelectasis. 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 Discussed With the patient about the importance of using the marian ntive spirometer although he states he does not like to use it. No reports of chest pain. Patient is afebrile. 12/23/2019 Patient is seen in follow-up today and reports continued abdominal discomfort and has been refusing diet. Patient also reports minimal stool output of the ostomy although this morning's abdominal x-ray shows moderate stool noted at the left side of the colon along with gas and air-fluid levels throughout the colon and small bowel. Patient has been refusing to allow nursing staff to assess and evaluate the stool output although there is gas and brown stool noted in the ostomy. Patient states he has intermittent nausea and vomiting has resolved but has not been eating. Patient's activity has decreased in patient remains in bed most of the day and refuses to get out of the bed stating his abdominal pain is too severe. Patient has been refusing oral narcotic medications and requesting only IV medications. Per nursing staff patient did request his [place] this aft ernoon shortly after receiving Dilaudid. Surgery is evaluating the patient and recommending a repeated episode of citrate of magnesia along with Senokot to maintain current bowel regimen. Will continue to monitor closely. Review of systems: Constitutional: Reports generalized weakness and fatigue, no reports of fevers or chills Cardiovascular: No reports of chest pain or palpitations Respiratory: No reports of shortness of breath, no reports of cough GI: Reports nausea, no reports of vomiting, reports continued decreased colostomy output : No reports of dysuria or retention Neurovascular: Reports generalized weakness, no reports of numbness Active Medications Hydrocodone Bitart/Acetaminophen ([place] 5-325) 1 each PO Q6HR PRN PRN Reason: Pain Last Admin: 12/23/19 14:30 Dose: 1 each Documented by: Heparin Sodium (Porcine) (Heparin) 5,000 unit SQ Q8HR [facility] Last Admin: 12/23/19 09:25 Dose: 5,000 unit Documented by: Hydromorphone HCl (Dilaudid) 1 mg IVP Q3HR PRN PRN Reason: Pain Last Admin: 12/23/19 13:27 Dose: 1 mg Documented by: Sodium Chloride (Saline 0.9%) 1,000 mls @ 75 mls/hr IV .[id number] [facility] Last Admin: 12/23/19 13:14 Dose: 75 mls/hr Documented by: Lactated Ringer's (Lactated Ringers) 1,000 mls @ 20 mls/hr IV .Q24H [facility] Last Admin: 12/23/19 06:48 Dose: Not Given Documented by: Magnesium Hydroxide (Milk Of Magnesia) 2,400 mg PO DAILY [facility] Metoclopramide HCl (Reglan) 10 mg IVP Q6HR [facility] Last Admin: 12/23/19 13:14 Dose: 10 mg Documented by: Naloxone HCl (Narcan) 0.2 mg IV Q2M PRN PRN Reason: Opioid Reversal Ondansetron HCl (Zofran Odt) 4 mg PO Q6H PRN PRN Reason: Nausea Ondansetron HCl (Zofran) 4 mg IVP Q4HR PRN PRN Reason: Nausea And Vomiting Last Admin: 12/23/19 10:21 Dose: 4 mg Documented by: Pantoprazole Sodium (Protonix) 40 mg IVP BID [facility] Last Admin: 12/23/19 09:26 Dose: 40 mg Documented by: Polyethylene Glycol (Miralax) 17 gm PO BID PRN PRN Reason: Constipation Senna (Senokot) 8.6 mg PO BID [facility] Last Admin: 12/23/19 09:25 Dose: 8.6 mg Documented by: Simethicone (Mylicon Chew) 80 mg PO BID PRN PRN Reason: GAS Triamterene/HCTZ (Maxzide-25) 1 each PO DAILY [facility] Last Admin: 12/23/19 09:26 Dose: 1 each Documented by: Objective - Vital Signs Vital signs: Vital Signs Temp 98.4 F 12/23/19 12:19 Pulse 93 12/23/19 12:19 Resp 17 12/23/19 12:19 BP 171/82 12/23/19 12:19 Pulse Ox 98 12/23/19 12:19 Intake & Output 12/22/19 12/23/19 12/23/19 18:59 06:59 18:59 Intake Total 600 825 240 Output Total 0 Balance 600 825 240 Intake: IV 600 825 Sodium Chloride 0.9% 1, 600 825 000 ml @ 75 mls/hr IV . [id number] [facility] Rx#:[id number] Oral 240 Output: Stool 0 Other: Voiding Method Urinal Urinal # Voids 3 3 - Exam GENERAL: The patient is alert and oriented x3, awake. Obese. Temp is 97.9F, pulse is 80, respirations are 18, blood pressure is 139/73, oxygen saturation is 96% on room air. HEENT: Pupils are round and equally reacting to light. EOMI. No scleral icterus. No conjunctival pallor. Normocephalic, atraumatic. No pharyngeal erythema. No thyromegaly. CARDIOVASCULAR: S1 and S2 present. No murmurs, rubs, or gallops. PULMONARY: Diminished breath sounds at the bases with no wheezing or crackles noted. ABDOMEN: Soft, tender upon palpation, obese, nondistended, positive bowel sounds noted. No palpable organomegaly. Patient has a colostomy bag on the left side with small semi-formed brown stool noted along with gas. MUSCULOSKELETAL: No joint swelling or deformity. EXTREMITIES: No cyanosis, clubbing, or pedal edema. NEUROLOGICAL: Gross neurological examination did not reveal any focal deficits. SKIN: No rashes. - Labs CBC & Chem 7: 12/23/19 06:00 12/22/19 14:00 Labs: Abnormal Lab Results - Last 24 Hours (Table) 12/22/19 12/23/19 Range/Units 14:00 06:00 RBC 3.91 L (4.30-5.90) m/uL Hgb 9.8 L (13.0-17.5) gm/dL Hct 32.3 L (39.0-53.0) % MCHC 30.4 L (31.0-37.0) g/dL RDW 16.7 H (11.5-15.5) % Lymphocytes # 0.8 L (1.0-4.8) k/uL Sodium 134 L (137-145) mmol/L Chloride 96 L (98-107) mmol/L Glucose 114 H (74-99) mg/dL AST 14 L (17-59) U/L Assessment and Plan Assessment: -Nausea vomiting: Patient underwent incarcerated incisional hernia repair with Dr. Talbert postop day 7 -Recent rectosigmoid cancer status post colectomy with a colostomy bag. Small semi-formed brown stool noted in the colostomy bag today -Covid 19 ruled out, testing was negative -Morbid obesity -Gastroesophageal reflux disease -Chronic low back pain with neuropathy -Hypertension -DVT prophylaxis with subcutaneous heparin Plan: Continue with current medications, management, and symptomatic treatment. P ostop day #7 for incisional hernia repair. Repeat abdominal x-ray continues to show gassy abdomen with air-fluid levels throughout the colon and small bowel with small bowel loops with possible generalized ileus favored over obstruction with some constipation. Surgery following. Patient to continue with bowel regimen and advancing diet to full liquids as vomiting has resolved. Discussed with the patient about continuing to use incentive spirometer at least 10 times every hour while awake and the importance of it. Further recommendations to follow.
[2019-12-24] MEDS: HYDROcodone/APAP 5-325MG 1 EACH TAB PO PRN ×3 (02:02→14:57)
[2019-12-24] MEDS: HYDROmorphone 1 MG/ML 1 ML SYRINGE IVP PRN ×6 (04:50→21:09)
[2019-12-24] MEDS: LACTATED RINGERS 1,000 ML IV SCH (05:48)
[2019-12-24 06:42] LABS: Anisocytosis Slight; Basophils % (A) 0 %; Eosinophils # (A) 0.1 k/uL (0-0.7); Eosinophils % (A) 2 %; HCT 31.2 % (39.0-53.0); HGB 9.6 gm/dL (13.0-17.5); Hypochromasia Marked; Lymphocytes # (A) 0.6 k/uL (1.0-4.8); Lymphocytes % (A) 14 %; MCH 25.1 pg (25.0-35.0); MCHC 30.6 g/dL (31.0-37.0); Mean Platelet Volume 7.3; Monocytes # (A) 0.5 k/uL (0-1.0); Monocytes % (A) 10 %; Neutrophils # (A) 3.3 k/uL (1.3-7.7); Neutrophils % (A) 72 %; Platelet Count 186 k/uL (150-450); RBC 3.81 m/uL (4.30-5.90); RDW 16.6 % (11.5-15.5); WBC 4.6 k/uL (3.8-10.6)
--- NOTE | 2019-12-24 09:21 | P.PN ---
<Lisa Williamson - Last Filed: 12/24/19 09:18> Subjective Progress Note Date: 12/24/19 CHIEF COMPLAINT: Abdominal pain HISTORY OF PRESENT ILLNESS: Patient is status post repair of incarcerated incisional hernia with mesh and enterolysis. Patient examined at the bedside this morning. Patient reports pain is tolerable. Receiving IV Dilaudid and [place]. He is tolerating full liquid diet. However, his intake remains very poor. No nausea or vomiting. Ostomy was changed yesterday per patient because it came apart. He reports stool in his ostomy last night. Vital signs stable. He is afebrile. PHYSICAL EXAM: VITAL SIGNS: Reviewed. GENERAL: Well-developed in no acute distress. HEENT: No sclera icterus. Extraocular movements grossly intact. Moist buccal mucosa. Head is atraumatic, normocephalic. ABDOMEN: Soft. Nondistended. Dressing clean dry and intact. Ostomy intact. NEUROLOGIC: Alert and oriented. Cranial nerves II through XII grossly intact. ASSESSMENT: 1. Abdominal pain, nausea 2. History of rectal cancer 3. Incarcerated incisional hernia 4. Ileus PLAN: -Continue diet -Pain control -Incentive spirometry -Continue activity as tolerated Nurse practitioner note has been reviewed by physician. Signing provider agrees with the documented findings, assessment, and plan of care. Objective - Vital Signs Vital signs: Vital Signs Temp 98.3 F 12/24/19 05:00 Pulse 89 12/24/19 05:00 Resp 18 12/24/19 05:00 BP 157/80 12/24/19 05:00 Pulse Ox 98 12/24/19 05:00 Intake & Output 12/23/19 12/24/19 12/24/19 18:59 06:59 18:59 Intake Total 240 1500 Output Total 700 Balance -460 1500 Intake: IV 900 Sodium Chloride 0.9% 1, 900 000 ml @ 75 mls/hr IV . [id number] [facility] Rx#:[id number] Oral 240 600 Output: Urine 100 Stool 600 Other: Voiding Method Urinal Urinal # Voids 4 2 # Bowel Movements 2 1 - Labs CBC & Chem 7: 12/24/19 06:05 12/22/19 14:00 Labs: Abnormal Lab Results - Last 24 Hours (Table) 12/24/19 Range/Units 06:05 RBC 3.81 L (4.30-5.90) m/uL Hgb 9.6 L (13.0-17.5) gm/dL Hct 31.2 L (39.0-53.0) % MCHC 30.6 L (31.0-37.0) g/dL RDW 16.6 H (11.5-15.5) % Lymphocytes # 0.6 L (1.0-4.8) k/uL <Dru Lawson - Last Filed: 12/24/19 15:21> Subjective As above. Patient with little appetite. Pain is about the same. Did have more ostomy output last night. No significant stool currently. We'll check CT abdomen and pelvis to rule out worsening obstruction. If that study appears improved advance diet. Discussed pain medication with the patient. We will discontinue IV narcotics tomorrow pending CAT scan results. Objective - Vital Signs Vital signs: Vital Signs Temp 98.3 F 12/24/19 05:00 Pulse 93 12/24/19 08:00 Resp 18 12/24/19 08:00 BP 157/80 12/24/19 05:00 Pulse Ox 98 12/24/19 05:00 Intake & Output 12/23/19 12/24/19 12/24/19 18:59 06:59 18:59 Intake Total 240 1500 600 Output Total 700 300 Balance -460 1500 300 Intake: IV 900 600 Sodium Chloride 0.9% 1, 900 600 000 ml @ 75 mls/hr IV . [id number] [facility] Rx#:[id number] Oral 240 600 Output: Urine 100 Stool 600 300 Other: Voiding Method Urinal Urinal Urinal # Voids 4 2 # Bowel Movements 2 1 - Labs CBC & Chem 7: 12/24/19 06:05 12/22/19 14:00 Labs: Abnormal Lab Results - Last 24 Hours (Table) 12/24/19 Range/Units 06:05 RBC 3.81 L (4.30-5.90) m/uL Hgb 9.6 L (13.0-17.5) gm/dL Hct 31.2 L (39.0-53.0) % MCHC 30.6 L (31.0-37.0) g/dL RDW 16.6 H (11.5-15.5) % Lymphocytes # 0.6 L (1.0-4.8) k/uL Assessment and Plan (1) Incisional hernia of anterior abdominal wall with obstruction Current Visit: Yes Status: Acute Code(s): K43.0 - INCISIONAL HERNIA WITH OBSTRUCTION, WITHOUT GANGRENE SNOMED Code(s): 993384155
[2019-12-24] MEDS: HEPARIN SODIUM,PORCINE 5,000 UNIT/ML 1 ML VIAL SQ SCH ×2 (09:32→17:55)
[2019-12-24] MEDS: METOCLOPRAMIDE 5 MG/ML 2 ML VIAL IVP SCH ×4 (09:32→23:59)
[2019-12-24] MEDS: SENNOSIDES 8.6 MG TAB PO SCH ×2 (09:32→21:08)
[2019-12-24] MEDS: TRIAMTERENE-HCTZ 37.5-25MG 1 EACH TAB PO SCH (09:34)
[2019-12-24] MEDS: PANTOPRAZOLE 40 MG/10 ML VIAL IVP SCH ×2 (09:34→21:08)
[2019-12-24] MEDS: MAGNESIUM HYDROXIDE 2,400 MG/10 ML CUP PO SCH (09:41)
[2019-12-24] MEDS: SODIUM CHLORIDE 0.9% 1,000 ML IV SCH (12:12)
--- NOTE | 2019-12-24 15:07 | P.PN ---
Subjective Progress Note Date: 12/24/19 Principal diagnosis: 59-year-old with history of rectal cancer in a colostomy in his cancer is in remission came in with compensative multiple episodes of nausea vomiting. Patient had a KUB x-ray which did not show any bowel obstruction. Patient denied any fever chills. Patient has multiple hospitalizations for similar complaints in the past at the time patient was treated for constipation and patient was discharged home patient this time says he is not constipated he didn 't move his bowels today. Patient didn't have any vomiting that wasn't evidenced by nursing staff but is still complaining of nausea patient was started on Zofran patient is also on Protonix. Patient denied any fever fever chills. Patient has nonspecific diffuse abdominal pain which is moderate in severity without any significant subjective tenderness 12/15/2019 Patient is seen and evaluated in follow-up today. Patient states he continues to have nausea although no vomiting associated. Patient states he also is having almost no output in the colostomy and told nursing staff that he drained a small amount of liquid stool last night with no output today noted. Patient continues to have abdominal discomfort and is awaiting CT of the abdomen and pelvis. Surgery is following. Currently no reports of chest pain, shortness of breath, or palpitations. Patient is afebrile. 12/16/2019 Patient is seen and evaluated in follow-up today and continues to have abdominal discomfort and underwent CT of the abdomen and pelvis showing a large right anterior abdominal wall hernia containing multiple loops of small bowel. Patient is scheduled to undergo hernia repair in the morning with Dr. talbert. Patient continues to have very minimal liquid stool output noted in the colostomy. Currently no reports of chest pain, shortness of breath, or palpitations. Patient is afebrile. No reports of vomiting the patient continues to have nausea. Patient requesting pain medications often before at scheduled time. Patient stated to have increased amounts of pain medication ready status post surgery as he was told he will be having extreme amounts of pain. Patient appears to be pain seeking at times. 12/17/2019 Patient is seen in follow-up today status post car serrated incisional hernia repair and is being closely monitored. Patient continues to have severe abdominal discomfort noted on the right lower and mid abdominal area. Patient remains on clear liquids and states he has not been eating very much as he has continued nausea with no active vomiting. Patient continues to request pain medications and is currently receiving IV Dilaudid every 2 hours as needed. Currently no reports of chest pain, shortness of breath, or palpitations. Patient is afebrile. Discussed with the patient about increasing activity as tolerated and getting up out of the bed and he states he is unable to due to the severe amount of pain. Patient also instructed to continue using incentive spi rometer at least 10 times every hour while awake and patient states he does not like to use the incentive spirometer. Discussed with the patient about the risks versus benefits and patient verbalizes understanding. Recent labs and vital signs within normal limits. 12/18/2019 Patient is seen and evaluated in follow-up after just walking down to the nursing station and down the entire hallway requesting pain medications with a steady gait. Patient has been up in the chair and abdominal binder is noted. Patient continues to have severe 10/10 pain he states and has been receiving Dilaudid every 2 hours although requesting it every hour and a half along with [place] 2 tabs every 6 hours and requesting that as well. Patient also has Toradol ordered but is refusing. Patient is on a dysphagia 3 chopped diet and tolerating with no reports of nausea or vomiting noted. Patient does have some stool and gas noted in the ostomy. Patient requesting another consult with Fanny Villarreal ostomy nurse. No reports of chest pain, shortness of breath, or palpitations. Patient is afebrile. JANET drain noted with serosanguinous fluid. 12/19/2019 Patient is seen in follow-up today and has been increasing activity as tolerated. Patient has been up to the bathroom and has been sitting in the chair and states he feels better in the chair. Patient continues to use abdominal binder. Patient continues to be an IV pain medications along with oral narcotics and discussed with the patient at length about lengthening the time in between IV narcotic use as he will not be going home with this. Patient verbalized understanding. Patient states he tends to have more pain when increasing activity although knows he has to keep moving in order to get better. Some brown loose stool noted in the ostomy and patient is tolerating diet. No reports of nausea or vomiting noted. Patient currently denies any chest pain, shortness of breath, or palpitations. Patient is afebrile. Will continue to monitor closely. Will repeat a.m. labs. JANET drain noted and will monitor output closely. 12/20/2019 Patient is currently sitting in a chair comfortably. Still complaining of constant incisional pain. No complaints of chest pain or shortness of breath. We will avoid IV narcotic pain medications. Abdominal binder was discontinued. Patient has been afebrile. No nausea vomiting or diarrhea. Tolerating oral diet. General surgery is following. 12/21/2019 Patient is still complaining of incisional pain. Requesting IV pain medications. Currently on [place] 10 every 6 hours and also Dilaudid 1 mg daily 3. Patient is to see pain specialist. General surgery is on board. Otherwise patient was advised to increase activity. Output in the colostomy bag was noted. Patient has been afebrile. Follow-up repeat labs tomorrow. Anticipate discharge in next 1-2 days. 12/22/2019 Patient is seen and evaluated in follow-up and states he has had some increased nausea and vomiting since last night and has not been tolerating diet. Surgery is following. Patient continues to have incisional pain and low output in the ostomy and is refusing anything by mouth at this time. Patient states he feels increasing pain and generalized weakness. Patient states he is having some shortness of breath and feels it is due to the pain in his abdomen. Patient underwent abdominal x-ray showing a progression in the caliber of small bowel in comparison to the previous x-ray with consideration of possible small bowel obstruction versus postop ileus along with advanced arthropathy of the right hip and some right basilar airspace disease which may be likely due to postoperative atelectasis. 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 Discussed With the patient about the importance of using the marian ntive spirometer although he states he does not like to use it. No reports of chest pain. Patient is afebrile. 12/23/2019 Patient is seen in follow-up today and reports continued abdominal discomfort and has been refusing diet. Patient also reports minimal stool output of the ostomy although this morning's abdominal x-ray shows moderate stool noted at the left side of the colon along with gas and air-fluid levels throughout the colon and small bowel. Patient has been refusing to allow nursing staff to assess and evaluate the stool output although there is gas and brown stool noted in the ostomy. Patient states he has intermittent nausea and vomiting has resolved but has not been eating. Patient's activity has decreased in patient remains in bed most of the day and refuses to get out of the bed stating his abdominal pain is too severe. Patient has been refusing oral narcotic medications and requesting only IV medications. Per nursing staff patient did request his [place]fu this aft ernoon shortly after receiving Dilaudid. Surgery is evaluating the patient and recommending a repeated episode of citrate of magnesia along with Senokot to maintain current bowel regimen. Will continue to monitor closely. 12/24/2019 Patient is seen in follow-up today and continues to report abdominal discomfort with generalized weakness and fatigue. Patient states that he has been having nausea but the vomiting has resolved. Patient has had stool output noted in the ostomy. Patient is tolerating clear liquids but has not been eating and is only been taking sips of water. Patient has been refusing to get out of the bed as he states the abdominal discomfort is severe when attempting to move. Discussed with the patient at length about getting up and increasing activity and patient states he does not have the energy to do so. Discussed with the patient about eating and the importance of nutrition to maintain proper energy levels and promote healing. Patient states he has no appetite and does not care for any of the food here. Patient does not have a recorded history of depression and denies any suicidal ideation at this time although is repeatedly asking to leave the windows closed, lights off and door shut. Surgery is following. Will continue monitor closely. Review of systems: Constitutional: Reports generalized weakness and fatigue, no reports of fevers or chills Cardiovascular: No reports of chest pain or palpitations Respiratory: No reports of shortness of breath, no reports of cough GI: Reports nausea, no reports of vomiting, reports continued decreased col ostomy output : No reports of dysuria or retention Neurovascular: Reports generalized weakness, no reports of numbness Active Medications Hydrocodone Bitart/Acetaminophen ([place]fu 5-325) 1 each PO Q6HR PRN PRN Reason: Pain Last Admin: 12/24/19 14:57 Dose: 1 each Documented by: Heparin Sodium (Porcine) (Heparin) 5,000 unit SQ Q8HR JOY Last Admin: 12/24/19 09:32 Dose: 5,000 unit Documented by: Hydromorphone HCl (Dilaudid) 1 mg IVP Q3HR PRN PRN Reason: Pain Last Admin: 12/24/19 14:58 Dose: 1 mg Documented by: Sodium Chloride (Saline 0.9%) 1,000 mls @ 75 mls/hr IV .[id number] [facility] Last Admin: 12/24/19 12:12 Dose: 75 mls/hr Documented by: Lactated Ringer's (Lactated Ringers) 1,000 mls @ 20 mls/hr IV .Q24H [facility] Last Admin: 12/24/19 05:48 Dose: Not Given Documented by: Magnesium Hydroxide (Milk Of Magnesia) 2,400 mg PO DAILY [facility] Last Admin: 12/24/19 09:41 Dose: Not Given Documented by: Metoclopramide HCl (Reglan) 10 mg IVP Q6HR [facility] Last Admin: 12/24/19 12:08 Dose: 10 mg Documented by: Naloxone HCl (Narcan) 0.2 mg IV Q2M PRN PRN Reason: Opioid Reversal Ondansetron HCl (Zofran Odt) 4 mg PO Q6H PRN PRN Reason: Nausea Ondansetron HCl (Zofran) 4 mg IVP Q4HR PRN PRN Reason: Nausea And Vomiting Last Admin: 12/23/19 16:39 Dose: 4 mg Documented by: Pantoprazole Sodium (Protonix) 40 mg IVP BID [facility] Last Admin: 12/24/19 09:34 Dose: 40 mg Documented by: Polyethylene Glycol (Miralax) 17 gm PO BID PRN PRN Reason: Constipation Senna (Senokot) 8.6 mg PO BID [facility] Last Admin: 12/24/19 09:32 Dose: 8.6 mg Documented by: Simethicone (Mylicon Chew) 80 mg PO BID PRN PRN Reason: GAS Triamterene/HCTZ (Maxzide-25) 1 each PO DAILY [facility] Last Admin: 12/24/19 09:34 Dose: 1 each Documented by: Objective - Vital Signs Vital signs: Vital Signs Temp 98.3 F 12/24/19 05:00 Pulse 93 12/24/19 08:00 Resp 18 12/24/19 08:00 BP 157/80 12/24/19 05:00 Pulse Ox 98 12/24/19 05:00 Intake & Output 12/23/19 12/24/19 12/24/19 18:59 06:59 18:59 Intake Total 240 1500 Output Total 700 300 Balance -460 1500 -300 Intake: IV 900 Sodium Chloride 0.9% 1, 900 000 ml @ 75 mls/hr IV . [id number] JOY Rx#:[id number] Oral 240 600 Output: Urine 100 Stool 600 300 Other: Voiding Method Urinal Urinal Urinal # Voids 4 2 # Bowel Movements 2 1 - Exam GENERAL: The patient is alert and oriented x3, awake. Obese. Temp is 98.3F, p ulse is 89, respirations are 18, blood pressure is 157/80, oxygen saturation is 98% on room air. HEENT: Pupils are round and equally reacting to light. EOMI. No scleral icterus. No conjunctival pallor. Normocephalic, atraumatic. No pharyngeal erythema. No thyromegaly. CARDIOVASCULAR: S1 and S2 present. No murmurs, rubs, or gallops. PULMONARY: Diminished breath sounds at the bases with no wheezing or crackles noted. ABDOMEN: Soft, tender upon palpation, obese, nondistended, positive bowel sounds noted. No palpable organomegaly. Patient has a colostomy bag on the left side with semi-formed brown stool noted along with gas. MUSCULOSKELETAL: No joint swelling or deformity. EXTREMITIES: No cyanosis, clubbing, or pedal edema. NEUROLOGICAL: Gross neurological examination did not reveal any focal deficits. SKIN: No rashes. - Labs CBC & Chem 7: 12/24/19 06:05 12/22/19 14:00 Labs: Abnormal Lab Results - Last 24 Hours (Table) 12/24/19 Range/Units 06:05 RBC 3.81 L (4.30-5.90) m/uL Hgb 9.6 L (13.0-17.5) gm/dL Hct 31.2 L (39.0-53.0) % MCHC 30.6 L (31.0-37.0) g/dL RDW 16.6 H (11.5-15.5) % Lymphocytes # 0.6 L (1.0-4.8) k/uL Assessment and Plan Assessment: -Nausea vomiting: Patient underwent incarcerated incisional hernia repair with Dr. 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 semi- formed brown stool noted in the colostomy bag today -Covid 19 ruled out, testing was negative -Morbid obesity -Gastroesophageal reflux disease -Chronic low back pain with neuropathy -Hypertension -DVT prophylaxis with subcutaneous heparin Plan: Continue with current medications, management, and symptomatic treatment. Postop day #8 for incisional hernia repair. Surgery following. Patient to continue with bowel regimen and advancing diet to full liquids as vomiting has resolved. Discussed with the patient about continuing to use incentive spirometer at least 10 times every hour while awake and the importance of it. Also discussed with the patient about increasing activity in the importance of eating. Patient states he does not have an appetite and does not care for the food here. Further recommendations to follow. Possible discharge in 24-48 hours.
[2019-12-24] MEDS: IOPAMIDOL CONTRAST (ORAL USE) VIAL PO PRN ×2 (15:40→16:33)
--- NOTE | 2019-12-24 17:52 | CT ---
EXAMINATION TYPE: CT abdomen pelvis w con DATE OF EXAM: 12/24/2019 COMPARISON: 12/15/2019 and 11/20/2019 HISTORY: bowel obstruction. Abdominal pain. CT DLP: 2228.1 mGycm Automated exposure control for dose reduction was used. TECHNIQUE: Helical acquisition of images was performed from the lung bases through the pelvis. CONTRAST: Performed with Oral Contrast and with IV Contrast, patient injected with 100 mL of Isovue 300. FINDINGS: LUNG BASES: Posterior right fat containing diaphragmatic hernia is present. LIVER/GB: Liver is of unremarkable enhancement and morphology. No radiopaque gallstones in the gallbl adder. Minimal nonspecific fat stranding at the inferior right hepatic margin also near the adjacent loops of small bowel and large bowel. PANCREAS: Pancreatic parenchymal atrophy is seen throughout. No ductal dilatation. SPLEEN: Spleen is slightly prominent in size measuring 13.3 cm in craniocaudal dimension although johnson s not yet meet criteria for splenomegaly. ADRENALS: No significant abnormality is seen. KIDNEYS: Probable right renal cyst with pseudoenhancement is redemonstrated measuring proximally 1.4 cm of the superior pole. Cystic nature could be confirmed with ultrasound. No hydronephrosis of eithe r kidney. FREE AIR: Extraluminal air is again redemonstrated adjacent to the rectal stent as seen on multiple p rior exams. ADENOPATHY: No greater than 1 cm short axis lymph node in the abdomen or pelvis. OSSEOUS STRUCTURES: Then advanced degenerative change with destruction is seen of the right hip and to a lesser degree of the left hip with degenerative disc disease of the spine. There is irregularity of the anterior margin of the sacrum abutting the presacral space soft tissue thickening and air. BOWEL: There is redemonstration of extraluminal air adjacent to the rectal and sigmoid stent as well as thickening of the presacral space stable in measurement from the prior exam measuring approximate ly 3.1 cm in greatest thickness on series 3 image 76. There has been surgical closure of the previously seen right abdominal wall bowel containing hernia w ith inflammatory fat stranding of the abdominal wall and mesenteric fat including at the inferior mar gin of the liver, presumed to be postsurgical. No well-defined fluid collection at this time. Likely early fat necrosis within the left paracentral abdomen on series 3 image 50. Left-sided ostomy remain s. Mildly dilated loops of small bowel are seen within the right sided abdomen measuring up to 3.5 cm. O ral contrast progresses through the majority of the small bowel loops however oral contrast has not y et extend to the colon. Anastomotic site at the anterior margin the liver is seen. No distinct transi tion point is noted. Again rectal stent is noted to be filled with debris. IMPRESSION: 1. MILDLY DILATED LOOPS OF SMALL BOWEL MEASURE UP TO 3.5 CM. CONTRAST DOES NOT YET EXTEND INTO THE NO NDILATED COLON. NO TRANSITION POINT SEEN. FINDINGS ARE FAVORED TO REPRESENT POSTSURGICAL ILEUS WITH R ECENT RIGHT VENTRAL ABDOMINAL WALL HERNIA CLOSURE. SERIAL ABDOMINAL RADIOGRAPHS COULD ENSURE PROGRESS ION OF CONTRAST INTO THE COLON EXCLUDING OBSTRUCTION. 2. SIMILAR FINDINGS OF PRESACRAL SPACE THICKENING AND POSSIBLE SINUS TRACT. SUBTLE IRREGULARITY OF TH E ANTERIOR CORTEX OF THE SACRUM IS ALSO SEEN THAT MAY BE REACTIVE OR RELATE TO OSTEOMYELITIS IN THE A PPROPRIATE CLINICAL SETTING. 3. POSTSURGICAL CHANGE OF THE VENTRAL ABDOMEN AND MESENTERY WITH PROBABLE FAT NECROSIS IN THE LEFT PA RACENTRAL ABDOMEN UNCHANGED FROM THE PRIOR.
[2019-12-25] MEDS: LACTATED RINGERS 1,000 ML IV SCH (00:02)
[2019-12-25] MEDS: METOCLOPRAMIDE 5 MG/ML 2 ML VIAL IVP SCH ×5 (00:02→23:28)
[2019-12-25] MEDS: HYDROmorphone 1 MG/ML 1 ML SYRINGE IVP PRN ×3 (00:14→07:32)
[2019-12-25] MEDS: TRIAMTERENE-HCTZ 37.5-25MG 1 EACH TAB PO SCH (07:30)
[2019-12-25] MEDS: HEPARIN SODIUM,PORCINE 5,000 UNIT/ML 1 ML VIAL SQ SCH ×4 (07:31→23:28)
[2019-12-25] MEDS: PANTOPRAZOLE 40 MG/10 ML VIAL IVP SCH ×2 (07:31→20:01)
[2019-12-25] MEDS: MAGNESIUM HYDROXIDE 2,400 MG/10 ML CUP PO SCH (07:31)
[2019-12-25] MEDS: HYDROcodone/APAP 5-325MG 1 EACH TAB PO PRN (07:31)
[2019-12-25] MEDS: SENNOSIDES 8.6 MG TAB PO SCH ×2 (07:32→20:00)
[2019-12-25 09:34] LABS: Anisocytosis Slight; Basophils % (A) 0 %; Eosinophils # (A) 0.2 k/uL (0-0.7); Eosinophils % (A) 3 %; HCT 33.2 % (39.0-53.0); HGB 10.3 gm/dL (13.0-17.5); Hypochromasia Marked; Lymphocytes # (A) 0.7 k/uL (1.0-4.8); Lymphocytes % (A) 12 %; MCH 25.7 pg (25.0-35.0); MCHC 31.1 g/dL (31.0-37.0); MCV 82.8 fL (80.0-100.0); Mean Platelet Volume 6.9; Monocytes # (A) 0.5 k/uL (0-1.0); Monocytes % (A) 8 %; Neutrophils # (A) 4.6 k/uL (1.3-7.7); Neutrophils % (A) 76 %; Platelet Count 231 k/uL (150-450); RBC 4.01 m/uL (4.30-5.90); RDW 16.3 % (11.5-15.5); WBC 6.1 k/uL (3.8-10.6)
--- NOTE | 2019-12-25 09:48 | P.PN ---
<WilliamsonLisa Carter - Last Filed: 12/25/19 09:46> Subjective Progress Note Date: 12/25/19 CHIEF COMPLAINT: Abdominal pain HISTORY OF PRESENT ILLNESS: Patient is status post repair of incarcerated incisional hernia with mesh and enterolysis. Patient examined at the bedside this morning. Patient reports pain is tolerable. Patient continues to report decreased oral intake. Denies nausea or vomiting. Ostomy changed this morning with the help of Fanny Villarreal. Patient reports stool in ostomy prior to appliance being changed. CT scan from yesterday reviewed by Dr. Lawson. Vital s igns stable. PHYSICAL EXAM: VITAL SIGNS: Reviewed. GENERAL: Well-developed in no acute distress. HEENT: No sclera icterus. Extraocular movements grossly intact. Moist buccal mucosa. Head is atraumatic, normocephalic. ABDOMEN: Soft. Nondistended. Dressing clean dry and intact. Ostomy intact. NEUROLOGIC: Alert and oriented. Cranial nerves II through XII grossly intact. ASSESSMENT: 1. Abdominal pain, nausea 2. History of rectal cancer 3. Incarcerated incisional hernia 4. Ileus PLAN: -Advance diet -Pain control. Discontinue Dilaudid. Continue [place] PRN -Incentive spirometry -Continue activity as tolerated Nurse practitioner note has been reviewed by physician. Signing provider agrees with the documented findings, assessment, and plan of care. Objective - Vital Signs Vital signs: Vital Signs Temp 98.3 F 12/25/19 04:00 Pulse 90 12/25/19 07:45 Resp 20 12/25/19 07:45 BP 126/78 12/25/19 04:00 Pulse Ox 94 L 12/25/19 04:00 Intake & Output 12/24/19 12/25/19 12/25/19 18:59 06:59 18:59 Intake Total 600 1900 Output Total 600 40 Balance 0 1900 -40 Intake: IV 600 600 Sodium Chloride 0.9% 1, 600 600 000 ml @ 75 mls/hr IV . [id number] JOY Rx#:[id number] Intake, IV Titration 600 Amount Sodium Chloride 0.9% 1, 600 000 ml @ 75 mls/hr IV . [id number] JOY Rx#:[id number] Oral 700 Output: Stool 600 40 Other: Voiding Method Urinal Urinal Urinal # Voids 2 # Bowel Movements 2 - Labs CBC & Chem 7: 12/25/19 09:09 12/22/19 14:00 Labs: Abnormal Lab Results - Last 24 Hours (Table) 12/25/19 Range/Units 09:09 RBC 4.01 L (4.30-5.90) m/uL Hgb 10.3 L (13.0-17.5) gm/dL Hct 33.2 L (39.0-53.0) % RDW 16.3 H (11.5-15.5) % Lymphocytes # 0.7 L (1.0-4.8) k/uL <Dru Lawson - Last Filed: 12/25/19 13:18> Subjective As above. Computed tomography scan reviewed. No definite obstruction or source of abdominal pain identified at this time. Still having some liquid stool. Appetite remains diminished. Patient begging for Dilaudid at this point. I informed him that at this point we will try controlling his pain with oral analgesics only. I did offer NSAIDs including Toradol but he refuses. We'll continue [place] only. Monitor appetite and oral intake. Objective - Vital Signs Vital signs: Vital Signs Temp 98.3 F 12/25/19 04:00 Pulse 90 12/25/19 07:45 Resp 20 12/25/19 07:45 BP 126/78 12/25/19 04:00 Pulse Ox 94 L 12/25/19 04:00 Intake & Output 12/24/19 12/25/19 12/25/19 18:59 06:59 18:59 Intake Total 600 1900 Output Total 600 40 Balance 0 1900 -40 Intake: IV 600 600 Sodium Chloride 0.9% 1, 600 600 000 ml @ 75 mls/hr IV . [id number] JOY Rx#:[id number] Intake, IV Titration 600 Amount Sodium Chloride 0.9% 1, 600 000 ml @ 75 mls/hr IV . [id number] JOY Rx#:[id number] Oral 700 Output: Stool 600 40 Other: Voiding Method Urinal Urinal Urinal # Voids 2 # Bowel Movements 2 - Labs CBC & Chem 7: 12/25/19 09:09 12/25/19 09:09 Labs: Abnormal Lab Results - Last 24 Hours (Table) 12/25/19 12/25/19 Range/Units 09:09 09:09 RBC 4.01 L (4.30-5.90) m/uL Hgb 10.3 L (13.0-17.5) gm/dL Hct 33.2 L (39.0-53.0) % RDW 16.3 H (11.5-15.5) % Lymphocytes # 0.7 L (1.0-4.8) k/uL Sodium 135 L (137-145) mmol/L Glucose 131 H (74-99) mg/dL Assessment and Plan (1) Incisional hernia of anterior abdominal wall with obstruction Current Visit: Yes Status: Acute Code(s): K43.0 - INCISIONAL HERNIA WITH OBSTRUCTION, WITHOUT GANGRENE SNOMED Code(s): 652143309
[2019-12-25 09:49] LABS: African American GFR (CKD) >90 (>60 ml/min/1.73 sqM); Anion Gap 8 mmol/L; Blood Urea Nitrogen 10 mg/dL (9-20); Calcium 9.4 mg/dL (8.4-10.2); Carbon Dioxide 28 mmol/L (22-30); Chloride 99 mmol/L (98-107); Glucose 131 mg/dL (74-99); Non-African American GFR(CKD) >90 (>60 ml/min/1.73 sqM); Potassium 4.1 mmol/L (3.5-5.1); Sodium 135 mmol/L (137-145)
[2019-12-25] MEDS: HYDROcodone/APAP 10-325MG 1 EACH TAB PO PRN ×3 (11:06→22:40)
[2019-12-25] MEDS: ONDANSETRON 4 MG/2 ML VIAL IVP PRN ×3 (13:02→20:43)
--- NOTE | 2019-12-25 15:46 | P.PN ---
Subjective Progress Note Date: 12/25/19 Principal diagnosis: 59-year-old with history of rectal cancer in a colostomy in his cancer is in remission came in with compensative multiple episodes of nausea vomiting. Patient had a KUB x-ray which did not show any bowel obstruction. Patient denied any fever chills. Patient has multiple hospitalizations for similar complaints in the past at the time patient was treated for constipation and patient was discharged home patient this time says he is not constipated he didn 't move his bowels today. Patient didn't have any vomiting that wasn't evidenced by nursing staff but is still complaining of nausea patient was started on Zofran patient is also on Protonix. Patient denied any fever fever chills. Patient has nonspecific diffuse abdominal pain which is moderate in severity without any significant subjective tenderness 12/15/2019 Patient is seen and evaluated in follow-up today. Patient states he continues to have nausea although no vomiting associated. Patient states he also is having almost no output in the colostomy and told nursing staff that he drained a small amount of liquid stool last night with no output today noted. Patient continues to have abdominal discomfort and is awaiting CT of the abdomen and pelvis. Surgery is following. Currently no reports of chest pain, shortness of breath, or palpitations. Patient is afebrile. 12/16/2019 Patient is seen and evaluated in follow-up today and continues to have abdominal discomfort and underwent CT of the abdomen and pelvis showing a large right anterior abdominal wall hernia containing multiple loops of small bowel. Patient is scheduled to undergo hernia repair in the morning with Dr. talbert. Patient continues to have very minimal liquid stool output noted in the colostomy. Currently no reports of chest pain, shortness of breath, or palpitations. Patient is afebrile. No reports of vomiting the patient continues to have nausea. Patient requesting pain medications often before at scheduled time. Patient stated to have increased amounts of pain medication ready status post surgery as he was told he will be having extreme amounts of pain. Patient appears to be pain seeking at times. 12/17/2019 Patient is seen in follow-up today status post car serrated incisional hernia repair and is being closely monitored. Patient continues to have severe abdominal discomfort noted on the right lower and mid abdominal area. Patient remains on clear liquids and states he has not been eating very much as he has continued nausea with no active vomiting. Patient continues to request pain medications and is currently receiving IV Dilaudid every 2 hours as needed. Currently no reports of chest pain, shortness of breath, or palpitations. Patient is afebrile. Discussed with the patient about increasing activity as tolerated and getting up out of the bed and he states he is unable to due to the severe amount of pain. Patient also instructed to continue using incentive spi rometer at least 10 times every hour while awake and patient states he does not like to use the incentive spirometer. Discussed with the patient about the risks versus benefits and patient verbalizes understanding. Recent labs and vital signs within normal limits. 12/18/2019 Patient is seen and evaluated in follow-up after just walking down to the nursing station and down the entire hallway requesting pain medications with a steady gait. Patient has been up in the chair and abdominal binder is noted. Patient continues to have severe 10/10 pain he states and has been receiving Dilaudid every 2 hours although requesting it every hour and a half along with [place] 2 tabs every 6 hours and requesting that as well. Patient also has Toradol ordered but is refusing. Patient is on a dysphagia 3 chopped diet and tolerating with no reports of nausea or vomiting noted. Patient does have some stool and gas noted in the ostomy. Patient requesting another consult with Fanny Villarreal ostomy nurse. No reports of chest pain, shortness of breath, or palpitations. Patient is afebrile. JANET drain noted with serosanguinous fluid. 12/19/2019 Patient is seen in follow-up today and has been increasing activity as tolerated. Patient has been up to the bathroom and has been sitting in the chair and states he feels better in the chair. Patient continues to use abdominal binder. Patient continues to be an IV pain medications along with oral narcotics and discussed with the patient at length about lengthening the time in between IV narcotic use as he will not be going home with this. Patient verbalized understanding. Patient states he tends to have more pain when increasing activity although knows he has to keep moving in order to get better. Some brown loose stool noted in the ostomy and patient is tolerating diet. No reports of nausea or vomiting noted. Patient currently denies any chest pain, shortness of breath, or palpitations. Patient is afebrile. Will continue to monitor closely. Will repeat a.m. labs. JANET drain noted and will monitor output closely. 12/20/2019 Patient is currently sitting in a chair comfortably. Still complaining of constant incisional pain. No complaints of chest pain or shortness of breath. We will avoid IV narcotic pain medications. Abdominal binder was discontinued. Patient has been afebrile. No nausea vomiting or diarrhea. Tolerating oral diet. General surgery is following. 12/21/2019 Patient is still complaining of incisional pain. Requesting IV pain medications. Currently on [place] 10 every 6 hours and also Dilaudid 1 mg daily 3. Patient is to see pain specialist. General surgery is on board. Otherwise patient was advised to increase activity. Output in the colostomy bag was noted. Patient has been afebrile. Follow-up repeat labs tomorrow. Anticipate discharge in next 1-2 days. 12/22/2019 Patient is seen and evaluated in follow-up and states he has had some increased nausea and vomiting since last night and has not been tolerating diet. Surgery is following. Patient continues to have incisional pain and low output in the ostomy and is refusing anything by mouth at this time. Patient states he feels increasing pain and generalized weakness. Patient states he is having some shortness of breath and feels it is due to the pain in his abdomen. Patient underwent abdominal x-ray showing a progression in the caliber of small bowel in comparison to the previous x-ray with consideration of possible small bowel obstruction versus postop ileus along with advanced arthropathy of the right hip and some right basilar airspace disease which may be likely due to postoperative atelectasis. 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 Discussed With the patient about the importance of using the marian ntive spirometer although he states he does not like to use it. No reports of chest pain. Patient is afebrile. 12/23/2019 Patient is seen in follow-up today and reports continued abdominal discomfort and has been refusing diet. Patient also reports minimal stool output of the ostomy although this morning's abdominal x-ray shows moderate stool noted at the left side of the colon along with gas and air-fluid levels throughout the colon and small bowel. Patient has been refusing to allow nursing staff to assess and evaluate the stool output although there is gas and brown stool noted in the ostomy. Patient states he has intermittent nausea and vomiting has resolved but has not been eating. Patient's activity has decreased in patient remains in bed most of the day and refuses to get out of the bed stating his abdominal pain is too severe. Patient has been refusing oral narcotic medications and requesting only IV medications. Per nursing staff patient did request his [place] this aft ernoon shortly after receiving Dilaudid. Surgery is evaluating the patient and recommending a repeated episode of citrate of magnesia along with Senokot to maintain current bowel regimen. Will continue to monitor closely. 12/24/2019 Patient is seen in follow-up today and continues to report abdominal discomfort with generalized weakness and fatigue. Patient states that he has been having nausea but the vomiting has resolved. Patient has had stool output noted in the ostomy. Patient is tolerating clear liquids but has not been eating and is only been taking sips of water. Patient has been refusing to get out of the bed as he states the abdominal discomfort is severe when attempting to move. Discussed with the patient at length about getting up and increasing activity and patient states he does not have the energy to do so. Discussed with the patient about eating and the importance of nutrition to maintain proper energy levels and promote healing. Patient states he has no appetite and does not care for any of the food here. Patient does not have a recorded history of depression and denies any suicidal ideation at this time although is repeatedly asking to leave the windows closed, lights off and door shut. Surgery is following. Will continue monitor closely. 12/25/2019 Patient is seen and evaluated in follow-up today and has been slowly increasing activity and is up in the chair at this time. Patient continues to have abdominal discomfort and having more discomfort with the abdominal binder and refusing to use the binder at this time. Patient's intake continues to be poor and requesting an advance in diet. Diet will be advanced to low fiber diet and will monitor closely. Patient continues to request that no one enters the room, door remain shut, window remains closed and is very tearful at times. A psychiatry consult was placed and is pending at this time. Patient denies any suicidal ideations although is expressing feelings of depression and anxiety. Surgery is following. Patient underwent a repeat CT of the abdomen yesterday showing no definite obstruction noted. Patient continues to have some liquid stool noted in the ostomy and states he was having issues with the ostomy bag leaking and unclicking throughout the night. Fanny Villarreal ostomy nurse in to see the patient with continued education on ostomy care. Review of systems: Constitutional: Reports generalized weakness and fatigue, no reports of fevers or chills Cardiovascular: No reports of chest pain or palpitations Respiratory: No reports of shortness of breath, no reports of cough GI: Reports intermittent nausea, no reports of vomiting : No reports of dysuria or retention Neurovascular: Reports generalized weakness, no reports of numbness Active Medications Hydrocodone Bitart/Acetaminophen ([place] 10) 2 each PO Q6H PRN PRN Reason: Pain Last Admin: 12/25/19 11:06 Dose: 2 each Documented by: Heparin Sodium (Porcine) (Heparin) 5,000 unit SQ Q8HR [facility] Last Admin: 12/25/19 07:31 Dose: 5,000 unit Documented by: Sodium Chloride (Saline 0.9%) 1,000 mls @ 75 mls/hr IV .[id number] [facility] Last Admin: 12/25/19 00:00 Dose: 75 mls/hr Documented by: Lactated Ringer's (Lactated Ringers) 1,000 mls @ 20 mls/hr IV .Q24H [facility] Last Admin: 12/25/19 00:02 Dose: Not Given Documented by: Magnesium Hydroxide (Milk Of Magnesia) 2,400 mg PO DAILY [facility] Last Admin: 12/25/19 07:31 Dose: Not Given Documented by: Metoclopramide HCl (Reglan) 10 mg IVP Q6HR [facility] Last Admin: 12/25/19 10:35 Dose: Not Given Documented by: Naloxone HCl (Narcan) 0.2 mg IV Q2M PRN PRN Reason: Opioid Reversal Ondansetron HCl (Zofran Odt) 4 mg PO Q6H PRN PRN Reason: Nausea Ondansetron HCl (Zofran) 4 mg IVP Q4HR PRN PRN Reason: Nausea And Vomiting Last Admin: 12/25/19 13:02 Dose: 4 mg Documented by: Pantoprazole Sodium (Protonix) 40 mg IVP BID [facility] Last Admin: 12/25/19 07:31 Dose: 40 mg Documented by: Polyethylene Glycol (Miralax) 17 gm PO BID PRN PRN Reason: Constipation Senna (Senokot) 8.6 mg PO BID [facility] Last Admin: 12/25/19 07:32 Dose: Not Given Documented by: Simethicone (Mylicon Chew) 80 mg PO BID PRN PRN Reason: GAS Triamterene/HCTZ (Maxzide-25) 1 each PO DAILY [facility] Last Admin: 12/25/19 07:30 Dose: 1 each Documented by: Objective - Vital Signs Vital signs: Vital Signs Temp 98.3 F 12/25/19 04:00 Pulse 90 12/25/19 07:45 Resp 20 12/25/19 07:45 BP 126/78 12/25/19 04:00 Pulse Ox 94 L 12/25/19 04:00 Intake & Output 12/24/19 12/25/19 12/25/19 18:59 06:59 18:59 Intake Total 600 1900 Output Total 600 40 Balance 0 1900 -40 Intake: IV 600 600 Sodium Chloride 0.9% 1, 600 600 000 ml @ 75 mls/hr IV . [id number] [facility] Rx#:[id number] Intake, IV Titration 600 Amount Sodium Chloride 0.9% 1, 600 000 ml @ 75 mls/hr IV . [id number] [facility] Rx#:[id number] Oral 700 Output: Stool 600 40 Other: Voiding Method Urinal Urinal Urinal # Voids 2 # Bowel Movements 2 - Exam GENERAL: The patient is alert and oriented x3, awake. Obese. Temp is 98.3F, pulse is 90, respirations are 20, blood pressure is 126/78, oxygen saturation is 94% on room air. HEENT: Pupils are round and equally reacting to light. EOMI. No scleral icterus. No conjunctival pallor. Normocephalic, atraumatic. No pharyngeal erythema. No thyromegaly. CARDIOVASCULAR: S1 and S2 present. No murmurs, rubs, or gallops. PULMONARY: Diminished breath sounds at the bases with no wheezing or crackles noted. ABDOMEN: Soft, tender upon palpation of the right mid quadrant area, obese, nondistended, positive bowel sounds noted. No palpable organomegaly. Patient has a colostomy bag on the left side with diffuse brown stool noted along with gas. MUSCULOSKELETAL: No joint swelling or deformity. EXTREMITIES: No cyanosis, clubbing, or pedal edema. NEUROLOGICAL: Gross neurological examination did not reveal any focal deficits. SKIN: No rashes. - Labs CBC & Chem 7: 12/25/19 09:09 12/25/19 09:09 Labs: Abnormal Lab Results - Last 24 Hours (Table) 12/25/19 12/25/19 Range/Units 09:09 09:09 RBC 4.01 L (4.30-5.90) m/uL Hgb 10.3 L (13.0-17.5) gm/dL Hct 33.2 L (39.0-53.0) % RDW 16.3 H (11.5-15.5) % Lymphocytes # 0.7 L (1.0-4.8) k/uL Sodium 135 L (137-145) mmol/L Glucose 131 H (74-99) mg/dL Assessment and Plan Assessment: -Nausea vomiting: Patient underwent incarcerated incisional hernia repair with Dr. Talbert postop day 9 -Recent rectosigmoid cancer status post colectomy with a colostomy bag. Loose brown stool noted in the colostomy bag today -Covid 19 ruled out, testing was negative -Possible depression/anxiety -Morbid obesity -Gastroesophageal reflux disease -Chronic low back pain with neuropathy -Hypertension -DVT prophylaxis with subcutaneous heparin Plan: Continue with current medications, management, and symptomatic treatment. Postop day #9 for incisional hernia repair. Surgery following. Patient to continue with bowel regimen and advancing diet to low fiber. Discussed with the patient about continuing to use incentive spirometer at least 10 times every hour while awake and the importance of it. Also discussed with the patient about increasing activity in the importance of eating. Diet is being advanced and will continue to monitor intake. Psychiatry consulted and pending at this time. IV pain medications have been discontinued and to continue with oral analgesics at this time. Further recommendations to follow. Possible discharge in 24-48 hours.
[2019-12-25] MEDS: SODIUM CHLORIDE 0.9% 1,000 ML IV SCH ×2 (17:02)
[2019-12-26] MEDS: ONDANSETRON 4 MG/2 ML VIAL IVP PRN ×2 (00:33→04:25)
[2019-12-26] MEDS: METOCLOPRAMIDE 5 MG/ML 2 ML VIAL IVP SCH ×2 (04:23→08:13)
[2019-12-26] MEDS: HYDROcodone/APAP 10-325MG 1 EACH TAB PO PRN ×2 (04:25→09:22)
[2019-12-26] MEDS: HEPARIN SODIUM,PORCINE 5,000 UNIT/ML 1 ML VIAL SQ SCH (08:02)
[2019-12-26] MEDS: TRIAMTERENE-HCTZ 37.5-25MG 1 EACH TAB PO SCH (08:02)
[2019-12-26] MEDS: MAGNESIUM HYDROXIDE 2,400 MG/10 ML CUP PO SCH (08:02)
[2019-12-26] MEDS: SENNOSIDES 8.6 MG TAB PO SCH (08:02)
[2019-12-26] MEDS: PANTOPRAZOLE 40 MG/10 ML VIAL IVP SCH (08:02)
[2019-12-26] MEDS: SODIUM CHLORIDE 0.9% 1,000 ML IV SCH (08:03)
[2019-12-26] MEDS: LACTATED RINGERS 1,000 ML IV SCH (08:03)
[2019-12-26 08:12] VITALS: BP 157/84; PULSE 72; RESP 16; TEMP 97.7
--- NOTE | 2019-12-26 09:03 | P.CN ---
Psychiatric Consult - . Consult date: 12/26/19 Consult:: 12/26/19 08:34 IDENTIFYING DATA: This patient is a 59-year-old male, who currently lives alone in an apartment has no kids is and collects Social Security. HISTORY OF PRESENT ILLNESS: The patient presented to the hospital with intractable nausea and vomiting as he has a history of rectal cancer. Patient has had multiple hospitalizations for similar complaints. He has abdominal pain and was having poor oral intake and was apparently noted to be tearful at times and irritable and also requesting that people don't come into his room and keep the door shut. Psychiatry is consulted for "possible depression and anxiety". He appeared to be somewhat irritable and question as to why resume writer was coming to speak with him this morning. Patient did however agree to be interviewed. He states that "I'm just bored here and wanted go home". He states that he has been through the surgery about 2 weeks ago and states that he is feeling a bit better today. He states that he was able to tolerate his food this morning and feels less nauseous and less pain today. He claims that he does have some "down days" however also try to minimize it and states that "so does everybody else". He endorsed very mild anxiety and states that it is doing better. He states that he does have some friends as support for him back home however says that he has no other family in the area. He states that his sleep has been fine and he claims that his appetite has been improving. He denies any worthlessness hopelessness or guilt. He claims that he was tearful the other day because there was a complication with his bag and he had stool all over himself. At this time patient denies any suicidal or homical ideations, intent or plan. Patient denies any auditory, visual hallucinations and denies any paranoia or delusions. Patients denies using any recreational drugs including cigarettes and alcohol. Patient endorsed future plans that he has when he gets out of the hospital. PAST PSYCHIATRIC HISTORY: Patient denies any psychiatric history or any outpatient psychiatric follow-up. He states that he's never been on any psychiatric medications in the past. He denies any hospitalizations or any suicide attempts in the past. PAST MEDICAL HISTORY: Rectal cancer, GERD, osteoporosis, hypertension. ALLERGIES: as per EMR. CHEMICAL DEPENDENCY HISTORY: as per HPI. FAMILY PSYCHIATRIC/SUBSTANCE USE HISTORY: denies SOCIAL HISTORY: He states that he was born and raised in [place] and currently lives in [facility] in an apartment and states that he completed high school. 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 He denies having any kids is and currently lives alone in apartment and collects Social Security. MENTAL STATUS EXAM: General Appearance: Patient appears to be stated age is alert, irritable at times and demanding. Patient appears to have fair hygiene and grooming wearing hospital gown with fair eye contact. Behavior: Patient is calmly lying in bed without any agitated behavior. Guarded at times and demanding. Speech: Patient's speech is fluent and nonpressured. Mood/Affect: Patient reports their mood is "fine now", affect is congruent and constricted. Suicidality/Homicidality: Patient denies having any suicidal or homicidal ideation intent or plan. Perceptions: Patient denies any visual hallucinations and denies any auditory hallucinations Though content/process: There is no evidence of any delusional thought content and thought process is linear and goal-directed. Future oriented. Memory and concentration: AOX3, grossly intact for the purposes of this session. Can spell "WORLD" backwards Judgment and insight: Limited IMPRESSIONS: Adjustment disorder with depressed mood PLAN: -At this time patient DOES NOT meet criteria for inpatient psychiatric admission. Irritability and demanding traits are likely related to personality and circumstances of being in the hospital and going through surgery/pain along with attempting to adjust to his new medical/physical condition. -Would recommend the following medication changes/additions: Would not recommend antidepressant medications at this time and patient endorsed that he did not want to be started on new medications. -Psychiatry will sign off at this point, please contact with any questions. 12/26/19 08:49
--- NOTE | 2019-12-26 11:05 | P.PN ---
Subjective Progress Note Date: 12/26/19 Principal diagnosis: Incarcerated hernia Patient seems to be doing better today. Tolerated diet without nausea or vomiting. Ostomy with liquid stools. He is very anxious now to be discharged. Still having some abdominal discomfort although he believes he can tolerate and manage his pain better at home. He is afebrile. Psychiatric consult identified and appreciated. Objective - Vital Signs Vital signs: Vital Signs Temp 97.7 F 12/26/19 07:38 Pulse 72 12/26/19 07:38 Resp 16 12/26/19 07:38 BP 157/84 12/26/19 07:38 Pulse Ox 99 12/26/19 07:38 Intake & Output 12/25/19 12/26/19 12/26/19 18:59 06:59 18:59 Intake Total 600 Output Total 180 Balance 420 Weight 134 kg Intake: IV 600 Sodium Chloride 0.9% 1, 600 000 ml @ 75 mls/hr IV . [id number] [facility] Rx#:[id number] Output: Urine 100 Stool 80 Other: Voiding Method Urinal Urinal # Voids 2 2 - Exam Abdomen: Soft, nondistended, incision clean and dry, mild tenderness, ostomy functioning - Labs CBC & Chem 7: 12/25/19 09:09 12/25/19 09:09 Assessment and Plan (1) Incisional hernia of anterior abdominal wall with obstruction Narrative/Plan: Patient seems to be doing better at this time. Recommend that he continue his stool softeners post discharge. He will resume his oral [place] at home. Follow- up in the office 1 week. Current Visit: Yes Status: Acute Code(s): K43.0 - INCISIONAL HERNIA WITH OBSTRUCTION, WITHOUT GANGRENE SNOMED Code(s): 701766102
--- NOTE | 2019-12-26 13:04 | P.DS ---
Providers Date of admission: 12/15/19 14:06 Expected date of discharge: 12/26/19 Attending physician: Jered Dykes Consults: 12/13/19 23:00 Consult Physician Routine Consulting Provider: Dru Lawson Consult Reason/Comments: Intractable abdominal pain; Intractable vomiting Do you want consulting provider notified?: Yes 12/16/19 19:08 Consult to Anesthesia Routine Consulting Provider: Anesthesia,Services Consult Reason/Comments: epidural for pain managment 12/25/19 12:02 Consult Physician Urgent Consulting Provider: Vj Pitts Consult Reason/Comments: possible depression/ anxiety Do you want consulting provider notified?: Yes Primary care physician: Stated None Hospital Course: Final diagnosis -Nausea vomiting -Status post incarcerated incisional hernia repair -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 Patient will continue with home care in the outpatient setting. Patient will follow-up with Dr. Connors in the outpatient setting upon discharge. Patient also instructed to follow-up with surgery Dr. Lawson in the outpatient setting in 1 week as scheduled. Total time taken is 35 minutes. History of present illness This is a 59-year-old male who came in and was admitted with multiple episodes of nausea and vomiting along with extreme abdominal discomfort and was being closely monitored. Surgery following. Patient has a history of multiple hospitalizations for similar complaints along with constipation and decreased output from the ostomy. During hospitalization patient underwent CT of the abdomen showing a large right anterior abdominal wall hernia containing multiple loops of the small bowel and patient underwent incarcerated incisional hernia repair with Dr. Lawson. Patient was on clear liquids and started on a bowel regimen and was slowly advanced in diet although patient continued to have increased episodes of nausea with some vomiting. Repeat abdominal x-rays showed no concerns for obstruction. Patient continued to show depressive like symptoms although states he was not suicidal or homicidal. Evaluated by psychiatry recommending outpatient follow-up. Patient refusing any antidepressant medications. Patient's diet was advanced and tolerating showing semi-formed stool output noted of the colostomy. Will continue with milk of magnesia along with Senokot and instructed to decrease narcotic medication use in the outpatient setting. Patient will continue with home care and will be following surgery in the outpatient setting along with primary care provider Dr. Connors out of [place]. Currently patient denies any chest pain, shortness of breath, or palpitations. Patient is afebrile. No reports of nausea or vomiting and patient is tolerating diet. Patient will be discharged today. Guarded prognosis. On exam vital signs are stable. Temp is 97.7 F, pulse is 72, respirations are 16, blood pressure is 157/84 and oxygen saturation is 99% on room air. Cardio S1, S2 are muffled. Respiratory system shows diminished breath sounds at the bases no wheezing or rhonchi noted. Abdomen is soft, obese, and nontender. Abdominal incision is dry with no surrounding erythema noted. Nervous system shows no focal deficits. Please refer to medication reconciliation sheet for a list of medications. Patient Condition at Discharge: Stable Plan - Discharge Summary Discharge Rx Participant: No New Discharge Prescriptions: New Magnesium Hydroxide [Milk of Magnesia Concentrate] 2,400 mg PO DAILY #120 ml Sennosides [Senokot] 8.6 mg PO BID #30 tab Continue Triamterene/Hydrochlorothiazid [Triamterene-Hctz 37.5-25 mg Tb] 1 tab PO DAILY Famotidine 20 mg PO BID PRN PRN Reason: stomach acid Simethicone Chew [Mylicon Chew] 80 mg PO BID PRN PRN Reason: GAS Polyethylene Glycol 3350 [Miralax] 17 gm PO BID PRN #527 gm PRN Reason: Constipation Ondansetron [Zofran ODT] 4 mg PO Q6H PRN PRN Reason: Nausea Docusate [Colace] 100 mg PO DAILY PRN PRN Reason: Constipation HYDROcodone/APAP 10-325MG [[place] 10-325] 2 tab PO Q6H PRN #16 tab PRN Reason: Pain Discharge Medication List Triamterene/Hydrochlorothiazid [Triamterene-Hctz 37.5-25 mg Tb] 1 tab PO DAILY 10/08/19 [History] Famotidine 20 mg PO BID PRN 11/18/19 [History] Simethicone Chew [Mylicon Chew] 80 mg PO BID PRN 11/18/19 [History] Polyethylene Glycol 3350 [Miralax] 17 gm PO BID PRN #527 gm 12/03/19 [Rx] Docusate [Colace] 100 mg PO DAILY PRN 12/14/19 [History] Ondansetron [Zofran ODT] 4 mg PO Q6H PRN 12/14/19 [History] HYDROcodone/APAP 10-325MG [[place] 10-325] 2 tab PO Q6H PRN #16 tab 12/26/19 [Rx] Magnesium Hydroxide [Milk of Magnesia Concentrate] 2,400 mg PO DAILY #120 ml 12/26/19 [Rx] Sennosides [Senokot] 8.6 mg PO BID #30 tab 12/26/19 [Rx] Follow up Appointment(s)/Referral(s): Dru Lawson MD [Medical Doctor] - 01/01/20 9:00 am [facility], [NON-STAFF] - As Needed Patient Instructions/Handouts: Hydrocodone/Acetaminophen (By mouth), Magnesium Hydroxide (By mouth), Colostomy Care (GEN) Activity/Diet/Wound Care/Special Instructions: Colostomy Care Recommendations Last Appliance pouching system change: 12.25.2019 In hospital ostomy supplies: Coloplast Convex flange cut to fit #[id number] (3) from hospital Ostomy belts (4) from hospital No sting prep (12) from the hospital Osotmy powder(1) Mandy seals (4) from the hospital Mr skelton utilizes [employer] brand at home, Home Health please arrnage the necessary equivalent supplies for home Continue current diet Activity Limited until follow-up Follow-up with primary care provider upon discharge Follow-up with surgery in the outpatient setting Continue with home care Discharge Disposition: HOME WITH HOME HEALTH SERVICES
[2019-12-26] MEDS ORDERED: PANTOPRAZOLE 40 MG TABLET PO SCH (21:00)
== END 2019-12-26 12:03 | disposition home health service (06) | DRG 336 ==
LOC: EC 21:06 → 5NMEDONC 23:00 → OBSVTOIN 12-15 14:06
PROVIDERS: ADMIT Internal Medicine; ATTEND Internal Medicine
PROC: 0WUF0JZ Supplement Abdominal Wall with Synthetic Substitute, Open Approach (ICD-10-PCS; principal; 2019-12-16 12:00)
PROC: 0DN80ZZ Release Small Intestine, Open Approach (ICD-10-PCS; principal; 2019-12-16 12:00)
DX: K43.0 Incisional hernia with obstruction, without gangrene (principal); Z68.41 Body mass index [BMI] 40.0-44.9, adult; J98.11 Atelectasis; K56.7 Ileus, unspecified; Q43.3 Congenital malformations of intestinal fixation; E66.01 Morbid (severe) obesity due to excess calories; Z20.828 Contact with and (suspected) exposure to other viral communicable diseases; K66.0 Peritoneal adhesions (postprocedural) (postinfection); F43.21 Adjustment disorder with depressed mood; I10 Essential (primary) hypertension; G62.9 Polyneuropathy, unspecified; K21.9 Gastro-esophageal reflux disease without esophagitis; M19.90 Unspecified osteoarthritis, unspecified site; M54.5 Low back pain; G89.4 Chronic pain syndrome; D50.9 Iron deficiency anemia, unspecified; Z93.3 Colostomy status; Z79.899 Other long term (current) drug therapy; Z85.048 Personal history of other malignant neoplasm of rectum, rectosigmoid junction, and anus; Z87.891 Personal history of nicotine dependence; Z90.49 Acquired absence of other specified parts of digestive tract; Z98.890 Other specified postprocedural states; Z80.0 Family history of malignant neoplasm of digestive organs; Z83.3 Family history of diabetes mellitus; Z82.49 Family history of ischemic heart disease and other diseases of the circulatory system
CPT/HCPCS: 36415; 71045; 74018; 74019; 74177; 80048; 80053; 81003; 82150; 83690; 84484; 85025; 87635; 88302; 93005; 96361; 96374; 96375; 96376; 99285

== ENCOUNTER 2020-03-01 16:04 | Inpatient (IN) | payer OTHER ==
[2020-03-01] MEDS ORDERED: ONDANSETRON 4 MG/2 ML VIAL IVP STA (16:39)
[2020-03-01] MEDS ORDERED: SODIUM CHLORIDE 0.9% 1,000 ML IV STA ×2 (16:39)
[2020-03-01] MEDS ORDERED: MORPHINE SULFATE 4 MG/ML SYRINGE IV STA (16:39)
[2020-03-01] MEDS ORDERED: PANTOPRAZOLE 40 MG/10 ML VIAL IVP STA (16:39)
--- NOTE | 2020-03-01 16:39 | ED ---
Abdominal Pain HPI - General Chief Complaint: Abdominal Pain Stated Complaint: vomiting Time Seen by Provider: 03/01/20 16:39 Source: patient, RN notes reviewed, old records reviewed Mode of arrival: wheelchair Limitations: no limitations - History of Present Illness Initial Comments: This is a 59-year-old male DF for evaluation patient presents today for evaluation regards to abdominal pain. Patient has history of severe abdominal pain history of cancer multiple abdominal surgeries. Mild nausea with vomiting vomiting no fevers. Patient also admits to diarrhea currently. Denies known sick contacts or patients with Diogo SANCHEZ Complaint: abdominal pain, other (Diarrhea) -: days(s) (3) Location: diffuse Radiation: none Migration to: epigastric, suprapubic Severity: severe Severity scale (1-10): 8 Quality: aching Consistency: constant Improves With: nothing Worsens With: nothing Associated Symptoms: nausea, vomiting, diarrhea - Related Data Home Medications Medication Instructions Recorded Confirmed Triamterene/Hydrochlorothiazid 1 tab PO DAILY 10/08/19 12/14/19 [Triamterene-Hctz 37.5-25 mg Tb] Famotidine 20 mg PO BID PRN 11/18/19 12/14/19 Simethicone Chew [Mylicon Chew] 80 mg PO BID PRN 11/18/19 12/14/19 Docusate [Colace] 100 mg PO DAILY PRN 12/14/19 12/14/19 Ondansetron [Zofran ODT] 4 mg PO Q6H PRN 12/14/19 12/14/19 Previous Rx's Medication Instructions Recorded Polyethylene Glycol 3350 [Miralax] 17 gm PO BID PRN #527 gm 12/03/19 HYDROcodone/APAP 10-325MG [[place] 2 tab PO Q6H PRN #16 tab 12/26/19 10-325] Magnesium Hydroxide [Milk of 2,400 mg PO DAILY #120 ml 12/26/19 Magnesia Concentrate] Sennosides [Senokot] 8.6 mg PO BID #30 tab 12/26/19 Allergies Allergy/AdvReac Type Severity Reaction Status Date / Time No Known Allergies Allergy Verified 03/01/20 16:16 Review of Systems ROS Statement: Those systems with pertinent positive or pertinent negative responses have been documented in the HPI. ROS Other: All systems not noted in ROS Statement are negative. Past Medical History Past Medical History: Cancer, GERD/Reflux, Osteoarthritis (OA) Additional Past Medical History / Comment(s): Pt recently admitted to [facility] on 12/01/19 with a fall/struck R side abdomin/abdominal pain/vomiting/decrease ostomy function/incisional abdominal hernia. Other hx: Rectal cancer approximately 2 yrs ago with colectomy/ileostomy then reversal/chem pills and radiation, recent partial colonic obstruction-pt sent to [facility] and had diverting loop colostomy, chronic low back pain, arthritis in multiple joints, neuropathy bilateral feet/toes and R hand, iron deficiency anemia. History of Any Multi-Drug Resistant Organisms: None Reported Past Surgical History: Appendectomy, Bowel Resection, Orthopedic Surgery, Tonsillectomy Additional Past Surgical History / Comment(s): Colectomy/ileostomy with reversal, diverting loop colostomy, colonoscopies, L elbow bursa surgery, double hernioa repair Past Anesthesia/Blood Transfusion Reactions: No Reported Reaction Past Psychological History: No Psychological Hx Reported Smoking Status: Former smoker Past Alcohol Use History: Rare Past Drug Use History: None Reported - Past Family History Mother Family Medical History: Cancer, Diabetes Mellitus Additional Family Medical History / Comment(s): from liver cancer Father Family Medical History: Myocardial Infarction ([place]) Additional Family Medical History / Comment(s): Pt has not spoken to his father in years and does not know much of his medical hx. General Exam Limitations: no limitations General appearance: alert, in no apparent distress Head exam: Present: atraumatic, normocephalic, normal inspection Eye exam: Present: normal appearance, PERRL, EOMI. Absent: scleral icterus, conjunctival injection, periorbital swelling ENT exam: Present: normal exam, mucous membranes moist Neck exam: Present: normal inspection. Absent: tenderness, meningismus, lymphad enopathy Respiratory exam: Present: normal lung sounds bilaterally. Absent: respiratory distress, wheezes, rales, rhonchi, stridor Cardiovascular Exam: Present: normal rhythm, tachycardia, normal heart sounds. Absent: systolic murmur, diastolic murmur, rubs, gallop, clicks GI/Abdominal exam: Present: soft, normal bowel sounds. Absent: distended, tenderness, guarding, rebound, rigid Extremities exam: Present: normal inspection, full ROM, normal capillary refill. Absent: tenderness, pedal edema, joint swelling, calf tenderness Back exam: Present: normal inspection Neurological exam: Present: alert, oriented X3, CN II-XII intact Psychiatric exam: Present: normal affect, normal mood Skin exam: Present: warm, dry, intact, normal color. Absent: rash Course Vital Signs 03/01/20 03/01/20 16:16 17:18 Temperature 98.4 F Pulse Rate 126 H 102 H Respiratory 16 20 Rate Blood Pressure 127/78 O2 Sat by Pulse 95 97 Oximetry - Reevaluation(s) Reevaluation #1: 03/01/20 17:14 Medical records reviewed Reevaluation #2: 03/01/20 19:32 Patient still having intractable pain here in the ER - Consultations Consultation #1: Spoke with sound agrees to admit Medical Decision Making - Medical Decision Making 59 male DF for evaluation intractable abdominal pain with nausea vomiting [place] for observation survey she regarding symptomatic therapy - Lab Data Result diagrams: 03/01/20 17:14 03/01/20 17:14 Lab Results 03/01/20 03/01/20 03/01/20 Range/Units 17:14 17:14 17:14 WBC 12.2 H (3.8-10.6) k/uL RBC 5.24 (4.30-5.90) m/uL Hgb 13.2 (13.0-17.5) gm/dL Hct 41.9 (39.0-53.0) % MCV 80.0 (80.0-100.0) fL MCH 25.3 (25.0-35.0) pg MCHC 31.6 (31.0-37.0) g/dL RDW 15.2 (11.5-15.5) % Plt Count 363 (150-450) k/uL Neutrophils % 88 % Lymphocytes % 6 % Monocytes % 4 % Eosinophils % 2 % Basophils % 0 % Neutrophils # 10.8 H (1.3-7.7) k/uL Lymphocytes # 0.7 L (1.0-4.8) k/uL Monocytes # 0.4 (0-1.0) k/uL Eosinophils # 0.2 (0-0.7) k/uL Basophils # 0.0 (0-0.2) k/uL Hypochromasia Slight Sodium 136 L (137-145) mmol/L Potassium 4.8 (3.5-5.1) mmol/L Chloride 101 (98-107) mmol/L Carbon Dioxide 20 L (22-30) mmol/L Anion Gap 15 mmol/L BUN 24 H (9-20) mg/dL Creatinine 1.25 (0.66-1.25) mg/dL Est GFR (CKD-EPI)AfAm 74 (>60 ml/min/1.73 sqM) Est GFR (CKD-EPI)NonAf 64 (>60 ml/min/1.73 sqM) Glucose 153 H (74-99) mg/dL Plasma Lactic Acid Gerry 1.3 (0.7-2.0) mmol/L Calcium 10.4 H (8.4-10.2) mg/dL Total Bilirubin 1.1 (0.2-1.3) mg/dL AST 30 (17-59) U/L ALT 12 (4-49) U/L Alkaline Phosphatase 67 (38-126) U/L Total Protein 8.6 H (6.3-8.2) g/dL Albumin 5.1 H (3.5-5.0) g/dL Amylase 51 (30-110) U/L Lipase 32 (23-300) U/L - Radiology Data Radiology results: report reviewed (CT pelvis does show a lot of old chronic changes possible abscess by rectal stent), image reviewed Disposition Clinical Impression: Nausea & vomiting, Abdominal pain, Morbid obesity due to excess calories, Intractable vomiting, Ileus, Intractable abdominal pain Disposition: ADMITTED IP TO THIS [facility] Condition: Good Is patient prescribed a controlled substance at d/c from ED?: No Referrals: Josiah Connors DO [Primary Care Provider] - 1-2 days
[2020-03-01 17:33] LABS: Basophils % (A) 0 %; Eosinophils # (A) 0.2 k/uL (0-0.7); Eosinophils % (A) 2 %; HCT 41.9 % (39.0-53.0); HGB 13.2 gm/dL (13.0-17.5); Hypochromasia Slight; Lymphocytes # (A) 0.7 k/uL (1.0-4.8); Lymphocytes % (A) 6 %; MCH 25.3 pg (25.0-35.0); MCHC 31.6 g/dL (31.0-37.0); Mean Platelet Volume 6.3; Monocytes # (A) 0.4 k/uL (0-1.0); Monocytes % (A) 4 %; Neutrophils # (A) 10.8 k/uL (1.3-7.7); Neutrophils % (A) 88 %; Platelet Count 363 k/uL (150-450); RBC 5.24 m/uL (4.30-5.90); RDW 15.2 % (11.5-15.5); WBC 12.2 k/uL (3.8-10.6)
[2020-03-01 17:42] LABS: Albumin 5.1 g/dL (3.5-5.0); Calcium 10.4 mg/dL (8.4-10.2); Potassium 4.8 mmol/L (3.5-5.1); Total Bilirubin 1.1 mg/dL (0.2-1.3); Total Protein 8.6 g/dL (6.3-8.2)
[2020-03-01] MEDS ORDERED: HYDROmorphone 1 MG/ML 1 ML SYRINGE IVP STA (18:05)
--- NOTE | 2020-03-01 19:22 | CT ---
EXAMINATION TYPE: CT abdomen pelvis w con DATE OF EXAM: 03/01/2020 COMPARISON: 12/24/2019 INDICATION: ABDOMINAL PAIN AND VOMITING DLP: 2439.9 mGycm, Automated exposure control for dose reduction was used. CONTRAST: 100 mL of Isovue 300. Study performed without Oral Contrast TECHNIQUE: Axial images were obtained from above the diaphragm to the pubic rami in the axial plane a t 5 mm thick sections. Reconstructed images are reviewed on the computer in the coronal plane. FINDINGS: Limited CT sections are obtained the lung bases. The lung bases are clear. CT ABDOMEN: Liver: Normal Spleen: Normal Pancreas: Normal Adrenal glands: The adrenal glands are normal. Gallbladder: Normal Kidneys: No masses are evident. No hydronephrosis is present. There is a 1.3 cm cyst measuring -5 H [place] units within the lateral mid right kidney. Delayed images were obtained through the kidney s, which remain unremarkable. Aorta: Normal Inferior vena cava: Normal. CT PELVIS: Postsurgical changes within loops of bowel are evident. There is a rectal stent present. There is pre sacral soft tissue thickening. Just posterior and superior to the stent is a slightly hypodense colle ction with a couple tiny amounts of air likely is a small abscess. Image 201 image 64. This measures 2.3 cm in diameter. Of the sacrum at this level has a slightly irregular border. Osteomyelitis is not excluded. Findings appear similar to the November exam There is an ostomy in the left lower quadrant. Small bowel loops in the right lower quadrant are slig htly prominent without significant dilatation. Remaining loops of bowel appear decompressed. The mesenteric fat changes in the left upper quadrant are stable. Appendix: Absent Urinary bladder: Decompressed. Urinary bladder as visualized appears unremarkable. Genitourinary structures: Prostate is small or possibly absent. Osseous structures: No suspicious lytic or sclerotic lesions. IMPRESSIONS: 1. Chronic presacral thickening contains a slightly hypodense area with a couple small amounts of ai r adjacent to the distal rectal stent could be a small 2.3 cm abscess. 2. Mild left right small bowel ileus versus normal bowel. No transition point or additional changes s uggest obstruction are evident. 3. Stable right renal cyst
[2020-03-01] MEDS ORDERED: HYDROmorphone 0.5 MG/0.5 ML SYRINGE IVP STA (21:33)
[2020-03-01] MEDS: HYDROmorphone 1 MG/ML 1 ML SYRINGE IVP PRN (23:29)
--- NOTE | 2020-03-02 00:48 | P.HPIM ---
History of Present Illness H&P Date: 03/01/20 Patient is a 59-year-old male with a PMH of rectal cancer in remission, incisional hernia status post repair 11/2019, status post colostomy presented to the ED with complaints of abdominal pain. He reports that ever since undergoing his colostomy formation, he has had a chronic constant diffuse abdominal pain, rated at 8 out of 10, radiating throughout the abdomen, improves with [place] at home. He notes that despite using his [place], he has episodes where his pain is significantly worsened, with no alleviating features. The patient notes that during these episodes of heightened pain, he also has associated nausea with intractable vomiting. He reports multiple daily episodes of emesis with i nability to tolerate liquids or solids for the past 3-4 days. Denied hematemesis or bloody stools. Denied diarrhea, chest pain, or shortness of breath. Denied cough, fever, or chills. The patient is also very concerned about his colostomy bag since it has been interfering with his life and wants to know if it could be reversed. In the emergency room, a CT abdomen and pelvis revealed findings suspicious for a possible chronic presacral abscess, mild small bowel ileus along with a stable right renal cyst. Laboratory evaluation revealed a WBC count of 12.2, hemoglobin 13.2, platelets 363, sodium 136, potassium 4.8, CO2 20, BUN 24, creatinine 1.25, lactic acid 1.3, alkaline phosphatase 67, with calcium 10.4. Review of Systems Pertinent positives and negatives as discussed in HPI, a complete review of systems was performed and all other systems are negative. Past Medical History Past Medical History: Cancer, GERD/Reflux, Osteoarthritis (OA) Additional Past Medical History / Comment(s): Pt recently admitted to [facility] on 12/01/19 with a fall/struck R side abdomin/abdominal pain/vomiting/decrease ostomy function/incisional abdominal hernia. Other hx: Rectal cancer approximately 2 yrs ago with colectomy/ileostomy then reversal/chem pills and radiation, recent partial colonic obstruction-pt sent to [facility] and had diverting loop colostomy, chronic low back pain, arthritis in multiple joints, neuropathy bilateral feet/toes and R hand, iron deficiency anemia. History of Any Multi-Drug Resistant Organisms: None Reported Past Surgical History: Appendectomy, Bowel Resection, Orthopedic Surgery, Tonsillectomy Additional Past Surgical History / Comment(s): Colectomy/ileostomy with reversal, diverting loop colostomy, colonoscopies, L elbow bursa surgery, double hernioa repair Past Anesthesia/Blood Transfusion Reactions: No Reported Reaction Past Psychological History: No Psychological Hx Reported Smoking Status: Former smoker Past Alcohol Use History: Rare Past Drug Use History: None Reported - Past Family History Mother Family Medical History: Cancer, Diabetes Mellitus Additional Family Medical History / Comment(s): from liver cancer Father Family Medical History: Myocardial Infarction ([place]) Additional Family Medical History / Comment(s): Pt has not spoken to his father in years and does not know much of his medical hx. Medications and Allergies Home Medications Medication Instructions Recorded Confirmed Type Triamterene/Hydrochlorothiazid 1 tab PO DAILY 10/08/19 03/01/20 History [Triamterene-Hctz 37.5-25 mg Tb] Docusate [Colace] 100 mg PO DAILY 12/14/19 03/01/20 History Ondansetron [Zofran ODT] 4 mg PO TID PRN 12/14/19 03/01/20 History HYDROcodone/APAP 10-325MG [[place] 2 tab PO Q6H PRN #16 tab 12/26/19 03/01/20 Rx 10-325] Allergies Allergy/AdvReac Type Severity Reaction Status Date / Time No Known Allergies Allergy Verified 03/01/20 19:49 Physical Exam Vitals: Vital Signs Temp Pulse Resp BP Pulse Ox 03/01/20 20:15 82 16 128/86 99 03/01/20 17:18 102 H 20 97 03/01/20 16:16 98.4 F 126 H 16 127/78 95 Intake and Output 03/01/20 03/01/20 03/02/20 14:59 22:59 06:59 Other: Weight 140.614 kg General: non toxic, no distress, appears at stated age, morbidly obese Derm: no unusual rashes/lesions no unusual ecchymoses, warm, dry Head: atraumatic, normocephalic, symmetric Eyes: EOMI, no lid lag, anicteric sclera, pupils equal round reactive to light ENT: Nose and ears atraumatic, no thrush, no pharyngeal erythema Neck: No thyromegaly, no cervical lymphadenopathy, trachea midline, supple Mouth: no lip lesion, mucus membranes moist Cardiovascular: S1S2 reg, no murmur, positive posterior tibial pulse bilateral, no edema, capillary refill less than 2 seconds Lungs: CTA bilateral, no rhonchi, no rales , no accessory muscle use Abdominal: soft, colostomy bag without stool, diffuse mild abdominal tenderness to palpation, no guarding, no appreciable organomegaly, normal bowel sounds Ext: no gross muscle atrophy, muscle strength 5 out of 5 in all 4 extremities grossly, no contractures, Neuro: CN II-XI grossly intact, light touch intact all 4 extremities, finger to nose within normal limits, Psych: Alert, oriented, appropriate affect Results CBC & Chem 7: 03/01/20 17:14 03/01/20 17:14 Labs: Abnormal Lab Results - Last 24 Hours (Table) 03/01/20 03/01/20 Range/Units 17:14 17:14 WBC 12.2 H (3.8-10.6) k/uL Neutrophils # 10.8 H (1.3-7.7) k/uL Lymphocytes # 0.7 L (1.0-4.8) k/uL Sodium 136 L (137-145) mmol/L Carbon Dioxide 20 L (22-30) mmol/L BUN 24 H (9-20) mg/dL Glucose 153 H (74-99) mg/dL Calcium 10.4 H (8.4-10.2) mg/dL Total Protein 8.6 H (6.3-8.2) g/dL Albumin 5.1 H (3.5-5.0) g/dL Assessment and Plan Plan: Abdominal pain with intractable nausea and vomiting, unclear etiology due to the chronicity of the pain -Unclear significance of the presacral findings -Continue with pain control with Dilaudid -Anti-emetics -Consult surgery -Hold off on antibiotics for now History of rectal cancer status post chemotherapy and radiation -Now in remission as per patient Leukocytosis -Possibly secondary to dehydration and acute distress -Monitor for now Prerenal azotemia -Likely due to dehydration and poor oral intake -Continue with IV fluids Hypercalcemia, likely due to dehydration -Monitor BMP for now DVT prophylaxis -Lovenox The patient is admitted with an anticipated less than 2 midnight stay for evaluation of abdominal pain CODE STATUS: Full Code Discussed with: Patient Anticipated discharge date: 1-[address]: Home A total of 35 minutes was spent on the care of this complex patient more than 50% of the time was spent in counseling and care coordination.
[2020-03-02] MEDS: ONDANSETRON 4 MG/2 ML VIAL IVP PRN ×3 (01:22→16:47)
[2020-03-02] MEDS: HYDROmorphone 1 MG/ML 1 ML SYRINGE IVP PRN ×5 (03:59→20:35)
[2020-03-02 07:04] LABS: HCT 36.7 % (39.0-53.0); HGB 11.4 gm/dL (13.0-17.5); Hypochromasia Marked; MCH 25.8 pg (25.0-35.0); MCHC 31.1 g/dL (31.0-37.0); MCV 82.8 fL (80.0-100.0); Mean Platelet Volume 6.7; Platelet Count 256 k/uL (150-450); RBC 4.44 m/uL (4.30-5.90); RDW 15.1 % (11.5-15.5); WBC 8.7 k/uL (3.8-10.6)
[2020-03-02 07:24] LABS: Calcium 9.6 mg/dL (8.4-10.2); Potassium 4.1 mmol/L (3.5-5.1)
[2020-03-02] MEDS: DOCUSATE 100 MG CAP PO SCH ×2 (08:38→08:44)
[2020-03-02] MEDS: ENOXAPARIN 40 MG/0.4 ML SYRINGE SQ SCH (08:44)
[2020-03-02] MEDS ORDERED: TRIAMTERENE-HCTZ 37.5-25MG 1 EACH TAB PO SCH (09:00)
--- NOTE | 2020-03-02 11:23 | P.GSCN ---
<Lisa Williamson - Last Filed: 03/02/20 11:05> History of Present Illness Consult date: 03/02/20 Reason for Consult: Abdominal pain Requesting physician: Luis Hopkins History of present illness: CHIEF COMPLAINT: Abdominal pain HISTORY OF PRESENT ILLNESS: 59-year-old male with history of rectal cancer who has a colostomy and a previous rectal stent. Patient recently underwent incarcerated incisional hernia repair with mesh on 12/16/[address] Lawson. Patient presented to the ER with a chief complaint of abdominal pain. He reports the pain is generalized over his entire abdomen. He reports decreased oral intake for the past few days. Reports he has had stool output from his ostomy. PAST MEDICAL HISTORY: See list. PAST SURGICAL HISTORY: See list. SOCIAL HISTORY: No illicit drug use. REVIEW OF SYSTEMS: CONSTITUTIONAL: Denies fever or chills. HEENT: Denies blurred vision, vision changes, or eye pain. Denies hemoptysis CARDIOVASCULAR: Denies chest pain or pressure. RESPIRATORY: No shortness of breath. GASTROINTESTINAL: Refer to [facility] for pertinent findings HEMATOLOGIC: Denies bleeding disorders. GENITOURINARY: Denies any blood in urine. SKIN: Denies pruitis. Denies rash. PHYSICAL EXAM: VITAL SIGNS: Reviewed. GENERAL: Well-developed in no acute distress. HEENT: No sclera icterus. Extraocular movements grossly intact. Moist buccal mucosa. Head is atraumatic, normocephalic. ABDOMEN: Soft. Nondistended. Mild tenderness. Ostomy noted. NEUROLOGIC: Alert and oriented. Cranial nerves II through XII grossly intact. LABORATORY DATA: WBC 8.7. Hemoglobin 11.4. Platelet count 256. IMAGING: CT abdomen and pelvis: Chronic presacral thickening contains a slightly hypodense area with a couple small amounts of air adjacent to the distal rectal stent could be small 2.3cm abscess. Mild left right small bowel ileus versus normal bowel. No transition point or additional changes suggestive of obstruction. ASSESSMENT: 1. Acute on chronic abdominal pain 2. History of incisional hernia repair, November 2019 3. History of rectal cancer with rectal stent and colostomy PLAN: Full liquid diet as tolerated Patient requesting to have colostomy reversed. Patient encouraged to follow up with his surgeon who performed colostomy at Dr Lawson will re-evaluate patient this afternoon. Further recommendations pending. Nurse practitioner note has been reviewed by physician. Signing provider agrees with the documented findings, assessment, and plan of care. Past Medical History Past Medical History: Cancer, GERD/Reflux, Osteoarthritis (OA) Additional Past Medical History / Comment(s): Pt recently admitted to [facility] on 12/01/19 with a fall/struck R side abdomin/abdominal pain/vomiting/decrease ostomy function/incisional abdominal hernia. Other hx: Rectal cancer approximately 2 yrs ago with colectomy/ileostomy then reversal/chem pills and radiation, recent partial colonic obstruction-pt sent to [place] and had diverting loop colostomy, chronic low back pain, arthritis in multiple joints, neuropathy bilateral feet/toes and R hand, iron deficiency anemia. History of Any Multi-Drug Resistant Organisms: None Reported Past Surgical History: Appendectomy, Bowel Resection, Orthopedic Surgery, Tonsillectomy Additional Past Surgical History / Comment(s): Colectomy/ileostomy with reversal, diverting loop colostomy, colonoscopies, L elbow bursa surgery, double hernioa repair Past Anesthesia/Blood Transfusion Reactions: No Reported Reaction Past Psychological History: No Psychological Hx Reported Smoking Status: Former smoker Past Alcohol Use History: Rare Past Drug Use History: None Reported - Past Family History Mother Family Medical History: Cancer, Diabetes Mellitus Additional Family Medical History / Comment(s): from liver cancer Father Family Medical History: Myocardial Infarction (MD) Additional Family Medical History / Comment(s): Pt has not spoken to his father in years and does not know much of his medical hx. Medications and Allergies Home Medications Medication Instructions Recorded Confirmed Type Triamterene/Hydrochlorothiazid 1 tab PO DAILY 10/08/19 03/01/20 History [Triamterene-Hctz 37.5-25 mg Tb] Docusate [Colace] 100 mg PO DAILY 12/14/19 03/01/20 History Ondansetron [Zofran ODT] 4 mg PO TID PRN 12/14/19 03/01/20 History HYDROcodone/APAP 10-325MG [[place] 2 tab PO Q6H PRN #16 tab 12/26/19 03/01/20 Rx 10-325] Allergies Allergy/AdvReac Type Severity Reaction Status Date / Time No Known Allergies Allergy Verified 03/01/20 19:49 Surgical - Exam Vital Signs Temp Pulse Resp BP Pulse Ox 98.4 F 126 H 16 127/78 95 03/01/20 16:16 03/01/20 16:16 03/01/20 16:16 03/01/20 16:16 03/01/20 16:16 Results - Labs 03/02/20 06:51 03/02/20 06:51 Abnormal Lab Results - Last 24 Hours (Table) 03/01/20 03/01/20 03/02/20 Range/Units 17:14 17:14 06:51 WBC 12.2 H (3.8-10.6) k/uL Hgb 11.4 L (13.0-17.5) gm/dL Hct 36.7 L (39.0-53.0) % Neutrophils # 10.8 H (1.3-7.7) k/uL Lymphocytes # 0.7 L (1.0-4.8) k/uL Sodium 136 L (137-145) mmol/L Carbon Dioxide 20 L (22-30) mmol/L BUN 24 H (9-20) mg/dL Creatinine (0.66-1.25) mg/dL Glucose 153 H (74-99) mg/dL Calcium 10.4 H (8.4-10.2) mg/dL Total Protein 8.6 H (6.3-8.2) g/dL Albumin 5.1 H (3.5-5.0) g/dL 03/02/20 Range/Units 06:51 WBC (3.8-10.6) k/uL Hgb (13.0-17.5) gm/dL Hct (39.0-53.0) % Neutrophils # (1.3-7.7) k/uL Lymphocytes # (1.0-4.8) k/uL Sodium 134 L (137-145) mmol/L Carbon Dioxide (22-30) mmol/L BUN 27 H (9-20) mg/dL Creatinine 1.48 H (0.66-1.25) mg/dL Glucose 125 H (74-99) mg/dL Calcium (8.4-10.2) mg/dL Total Protein (6.3-8.2) g/dL Albumin (3.5-5.0) g/dL Diabetes panel 03/01/20 03/02/20 Range/Units 17:14 06:51 Sodium 136 L 134 L (137-145) mmol/L Potassium 4.8 4.1 (3.5-5.1) mmol/L Chloride 101 99 (98-107) mmol/L Carbon Dioxide 20 L 24 (22-30) mmol/L BUN 24 H 27 H (9-20) mg/dL Creatinine 1.25 1.48 H (0.66-1.25) mg/dL Glucose 153 H 125 H (74-99) mg/dL Calcium 10.4 H 9.6 (8.4-10.2) mg/dL AST 30 (17-59) U/L ALT 12 (4-49) U/L Alkaline Phosphatase 67 (38-126) U/L Total Protein 8.6 H (6.3-8.2) g/dL Albumin 5.1 H (3.5-5.0) g/dL Calcium panel 03/01/20 03/02/20 Range/Units 17:14 06:51 Calcium 10.4 H 9.6 (8.4-10.2) mg/dL Albumin 5.1 H (3.5-5.0) g/dL Pituitary panel 03/01/20 03/02/20 Range/Units 17:14 06:51 Sodium 136 L 134 L (137-145) mmol/L Potassium 4.8 4.1 (3.5-5.1) mmol/L Chloride 101 99 (98-107) mmol/L Carbon Dioxide 20 L 24 (22-30) mmol/L BUN 24 H 27 H (9-20) mg/dL Creatinine 1.25 1.48 H (0.66-1.25) mg/dL Glucose 153 H 125 H (74-99) mg/dL Calcium 10.4 H 9.6 (8.4-10.2) mg/dL Adrenal panel 03/01/20 03/02/20 Range/Units 17:14 06:51 Sodium 136 L 134 L (137-145) mmol/L Potassium 4.8 4.1 (3.5-5.1) mmol/L Chloride 101 99 (98-107) mmol/L Carbon Dioxide 20 L 24 (22-30) mmol/L BUN 24 H 27 H (9-20) mg/dL Creatinine 1.25 1.48 H (0.66-1.25) mg/dL Glucose 153 H 125 H (74-99) mg/dL Calcium 10.4 H 9.6 (8.4-10.2) mg/dL Total Bilirubin 1.1 (0.2-1.3) mg/dL AST 30 (17-59) U/L ALT 12 (4-49) U/L Alkaline Phosphatase 67 (38-126) U/L Total Protein 8.6 H (6.3-8.2) g/dL Albumin 5.1 H (3.5-5.0) g/dL <Dru Lawson - Last Filed: 03/02/20 13:44> History of Present Illness History of present illness: As above. Continue stool softeners. Etiology for the patient's ongoing nausea and pain unclear. Previously he had symptoms like this when he was constipated however CAT scan not showing any significant stool burden currently. May discharge home if patient tolerates diet and pain is improved. Plan outpatient referral to tertiary care colorectal post discharge to discuss future ostomy reversal. Surgical - Exam Vital Signs Temp Pulse Resp BP Pulse Ox 98.4 F 126 H 16 127/78 95 03/01/20 16:16 03/01/20 16:16 03/01/20 16:16 03/01/20 16:16 03/01/20 16:16 Results - Labs 03/02/20 06:51 03/02/20 06:51 Abnormal Lab Results - Last 24 Hours (Table) 03/01/20 03/01/20 03/02/20 Range/Units 17:14 17:14 06:51 WBC 12.2 H (3.8-10.6) k/uL Hgb 11.4 L (13.0-17.5) gm/dL Hct 36.7 L (39.0-53.0) % Neutrophils # 10.8 H (1.3-7.7) k/uL Lymphocytes # 0.7 L (1.0-4.8) k/uL Sodium 136 L (137-145) mmol/L Carbon Dioxide 20 L (22-30) mmol/L BUN 24 H (9-20) mg/dL Creatinine (0.66-1.25) mg/dL Glucose 153 H (74-99) mg/dL Calcium 10.4 H (8.4-10.2) mg/dL Total Protein 8.6 H (6.3-8.2) g/dL Albumin 5.1 H (3.5-5.0) g/dL 03/02/20 Range/Units 06:51 WBC (3.8-10.6) k/uL Hgb (13.0-17.5) gm/dL Hct (39.0-53.0) % Neutrophils # (1.3-7.7) k/uL Lymphocytes # (1.0-4.8) k/uL Sodium 134 L (137-145) mmol/L Carbon Dioxide (22-30) mmol/L BUN 27 H (9-20) mg/dL Creatinine 1.48 H (0.66-1.25) mg/dL Glucose 125 H (74-99) mg/dL Calcium (8.4-10.2) mg/dL Total Protein (6.3-8.2) g/dL Albumin (3.5-5.0) g/dL Diabetes panel 03/01/20 03/02/20 Range/Units 17:14 06:51 Sodium 136 L 134 L (137-145) mmol/L Potassium 4.8 4.1 (3.5-5.1) mmol/L Chloride 101 99 (98-107) mmol/L Carbon Dioxide 20 L 24 (22-30) mmol/L BUN 24 H 27 H (9-20) mg/dL Creatinine 1.25 1.48 H (0.66-1.25) mg/dL Glucose 153 H 125 H (74-99) mg/dL Calcium 10.4 H 9.6 (8.4-10.2) mg/dL AST 30 (17-59) U/L ALT 12 (4-49) U/L Alkaline Phosphatase 67 (38-126) U/L Total Protein 8.6 H (6.3-8.2) g/dL Albumin 5.1 H (3.5-5.0) g/dL Calcium panel 03/01/20 03/02/20 Range/Units 17:14 06:51 Calcium 10.4 H 9.6 (8.4-10.2) mg/dL Albumin 5.1 H (3.5-5.0) g/dL Pituitary panel 03/01/20 03/02/20 Range/Units 17:14 06:51 Sodium 136 L 134 L (137-145) mmol/L Potassium 4.8 4.1 (3.5-5.1) mmol/L Chloride 101 99 (98-107) mmol/L Carbon Dioxide 20 L 24 (22-30) mmol/L BUN 24 H 27 H (9-20) mg/dL Creatinine 1.25 1.48 H (0.66-1.25) mg/dL Glucose 153 H 125 H (74-99) mg/dL Calcium 10.4 H 9.6 (8.4-10.2) mg/dL Adrenal panel 03/01/20 03/02/20 Range/Units 17:14 06:51 Sodium 136 L 134 L (137-145) mmol/L Potassium 4.8 4.1 (3.5-5.1) mmol/L Chloride 101 99 (98-107) mmol/L Carbon Dioxide 20 L 24 (22-30) mmol/L BUN 24 H 27 H (9-20) mg/dL Creatinine 1.25 1.48 H (0.66-1.25) mg/dL Glucose 153 H 125 H (74-99) mg/dL Calcium 10.4 H 9.6 (8.4-10.2) mg/dL Total Bilirubin 1.1 (0.2-1.3) mg/dL AST 30 (17-59) U/L ALT 12 (4-49) U/L Alkaline Phosphatase 67 (38-126) U/L Total Protein 8.6 H (6.3-8.2) g/dL Albumin 5.1 H (3.5-5.0) g/dL
--- NOTE | 2020-03-02 13:35 | P.PN ---
Subjective Progress Note Date: 03/02/20 Principal diagnosis: Abdominal pain Patient was seen and examined. No acute events overnight. Patient reports 7-8 out of 10 severity generalized abdominal pain is diffuse throughout his abdomen. Patient reports rectal pain. He denies any difficulty urinating or dysuria. He said he gets this once in a while. He also reports some nausea but no vomiting. He denies any chest pain, shortness breath or palpitations. No fever or chills. Wanting his colostomy reversed. Objective - Vital Signs Vital signs: Vital Signs Temp 97.8 F 03/02/20 08:00 Pulse 70 03/02/20 08:00 Resp 16 03/02/20 08:00 BP 114/72 03/02/20 08:00 Pulse Ox 96 03/02/20 08:00 Intake & Output 03/01/20 03/02/20 03/02/20 18:59 06:59 18:59 Weight 140.614 kg 140.6 kg Other: # Voids 1 # Bowel Movements 1 - Exam General: [non toxic], [no distress], [appears at stated age] Derm: [warm], [dry] Head: [atraumatic], [normocephalic], [symmetric] Eyes: [EOMI], [no lid lag], [anicteric sclera] Mouth: [no lip lesion], [mucus membranes moist] Cardiovascular: [S1S2 reg], [no murmur], [positive DP pulse bilateral], Lungs: [CTA bilateral], [no rhonchi, no rales] , [no accessory muscle use] Abdominal: [soft], [generalized tenderness in all 4 quadrants without rebound], [no guarding], [no appreciable organomegaly], colostomy intact without stool left side Ext: [no gross muscle atrophy], [no edema], [no contractures] Neuro: [no focal neuro deficits] Psych: [Alert], [oriented], [appropriate affect] - Labs CBC & Chem 7: 03/02/20 06:51 03/02/20 06:51 Labs: Abnormal Lab Results - Last 24 Hours (Table) 03/01/20 03/01/20 03/02/20 Range/Units 17:14 17:14 06:51 WBC 12.2 H (3.8-10.6) k/uL Hgb 11.4 L (13.0-17.5) gm/dL Hct 36.7 L (39.0-53.0) % Neutrophils # 10.8 H (1.3-7.7) k/uL Lymphocytes # 0.7 L (1.0-4.8) k/uL Sodium 136 L (137-145) mmol/L Carbon Dioxide 20 L (22-30) mmol/L BUN 24 H (9-20) mg/dL Creatinine (0.66-1.25) mg/dL Glucose 153 H (74-99) mg/dL Calcium 10.4 H (8.4-10.2) mg/dL Total Protein 8.6 H (6.3-8.2) g/dL Albumin 5.1 H (3.5-5.0) g/dL 03/02/20 Range/Units 06:51 WBC (3.8-10.6) k/uL Hgb (13.0-17.5) gm/dL Hct (39.0-53.0) % Neutrophils # (1.3-7.7) k/uL Lymphocytes # (1.0-4.8) k/uL Sodium 134 L (137-145) mmol/L Carbon Dioxide (22-30) mmol/L BUN 27 H (9-20) mg/dL Creatinine 1.48 H (0.66-1.25) mg/dL Glucose 125 H (74-99) mg/dL Calcium (8.4-10.2) mg/dL Total Protein (6.3-8.2) g/dL Albumin (3.5-5.0) g/dL Assessment and Plan Assessment: Abdominal pain with intractable nausea and vomiting, unclear etiology due to the chronicity of the pain -Unclear significance of the presacral findings -Continue with pain control with Dilaudid -Anti-emetics -Consult surgery -Hold off on antibiotics for now Acute kidney injury -BUN 27, creatinine 1.47 -Likely due to dehydration -Continue IV hydration and avoid nephrotoxins -Repeat BMP tomorrow morning History of rectal cancer status post chemotherapy and radiation -Now in remission as per patient DVT prophylaxis -Lovenox Resolved: Leukcytosis, Hypercalcemia
[2020-03-02] MEDS: SODIUM CHLORIDE 0.9% 1,000 ML IV SCH (16:29)
[2020-03-03] MEDS: HYDROmorphone 1 MG/ML 1 ML SYRINGE IVP PRN ×6 (00:36→21:39)
[2020-03-03] MEDS: ONDANSETRON 4 MG/2 ML VIAL IVP PRN ×4 (01:16→21:38)
[2020-03-03] MEDS: SODIUM CHLORIDE 0.9% 1,000 ML IV SCH ×2 (04:34→18:09)
[2020-03-03] MEDS: ENOXAPARIN 40 MG/0.4 ML SYRINGE SQ SCH ×2 (07:33→07:34)
[2020-03-03] MEDS: DOCUSATE 100 MG CAP PO SCH (07:33)
--- NOTE | 2020-03-03 12:24 | P.PN ---
Subjective Progress Note Date: 03/03/20 Principal diagnosis: Abdominal pain Patient was seen and examined. No acute events overnight. Patient reports 8 out of 10 severity generalized abdominal pain is diffuse throughout his abdomen. Patient reports rectal pain. He denies any difficulty urinating or dysuria. Pain is slightly improved from yesterday though still very persistent. He also reports some nausea but no vomiting. He denies any chest pain, shortness breath or palpitations. No fever or chills. Wanting his colostomy reversed. Objective - Vital Signs Vital signs: Vital Signs Temp 97.7 F 03/03/20 08:00 Pulse 77 03/03/20 08:00 Resp 19 03/03/20 08:00 BP 116/77 03/03/20 08:00 Pulse Ox 97 03/03/20 08:00 Intake & Output 03/02/20 03/03/20 03/03/20 18:59 06:59 18:59 Weight 139.8 kg Other: # Voids 1 # Bowel Movements 1 - Exam General: [non toxic], [no distress], [appears at stated age] Derm: [warm], [dry] Head: [atraumatic], [normocephalic], [symmetric] Eyes: [EOMI], [no lid lag], [anicteric sclera] Mouth: [no lip lesion], [mucus membranes moist] Cardiovascular: [S1S2 reg], [no murmur], [positive DP pulse bilateral], Lungs: [CTA bilateral], [no rhonchi, no rales] , [no accessory muscle use] Abdominal: [soft], [generalized tenderness in all 4 quadrants without rebound], [no guarding], [no appreciable organomegaly], colostomy intact without stool left side Ext: [no gross muscle atrophy], [no edema], [no contractures] Neuro: [no focal neuro deficits] Psych: [Alert], [oriented], [appropriate affect] - Labs CBC & Chem 7: 03/02/20 06:51 03/02/20 06:51 Assessment and Plan Assessment: Abdominal pain with intractable nausea and vomiting, unclear etiology due to the chronicity of the pain, possible radiation-induced prostatitis -Unclear significance of the presacral findings -Change Dilaudid from 1 mg every 4 hours as needed to every 3 hours and add [place] 10 2 tabs every 6 hours scheduled -Check urinalysis reflux to urine culture -Anti-emetics -Consult surgery -Hold off on antibiotics for now Acute kidney injury -BUN 27, creatinine 1.48 -Likely due to dehydration -Continue IV hydration and avoid nephrotoxins -Repeat BMP tomorrow morning Anemia -Likely dilutional, continue to monitor History of rectal cancer status post chemotherapy and radiation -Now in remission as per patient DVT prophylaxis -Lovenox Resolved: Leukcytosis, Hypercalcemia
[2020-03-03] MEDS: HYDROcodone/APAP 10-325MG 1 EACH TAB PO PRN ×2 (13:42→20:17)
[2020-03-03] MEDS ORDERED: ONDANSETRON 4 MG/2 ML VIAL IVP PRN (14:43)
--- NOTE | 2020-03-03 18:33 | PN ---
PROGRESS NOTE INTERVAL HISTORY: Patient is doing well today. Pain seems to be somewhat improved. His white blood cell count yesterday was normalized. The patient says he still feels nauseated, however. No vomiting. Tolerating liquid diet currently. Abdomen: Soft, nondistended. Mild tenderness. No palpable hernias. IMPRESSION/PLAN: [id number] male with ongoing abdominal pain. Etiology unclear. Patient quite anxious overall. Patient interested in colostomy reversal, which is unfortunately not possible at this time. Will arrange outpatient colorectal surgery evaluation. May discharge if tolerates diet and pain control. MMODL / IJN: [id number] /
[2020-03-03 20:16] LABS: Appearance,Urine Cloudy (Clear); Bacteria,Urine Rare /hpf; Bilirubin,Urine Negative (Negative); Blood,Urine Negative (Negative); Color,Urine Yellow; Glucose,Urine (UA) Negative (Negative); Hyaline Casts,Urine 1 /lpf (0-2); Ketones,Urine Negative (Negative); Leukocyte Esterase,Urine Negative (Negative); Mucus,Urine Few /hpf; Nitrite,Urine Negative (Negative); PH, Urine 5.5 (5.0-8.0); Protein,Urine Trace (Negative); RBC,Urine 1 /hpf (0-5); Specific Gravity,Urine 1.028 (1.001-1.035); Urobilinogen,Urine <2.0 mg/dL (<2.0); WBC,Urine 2 /hpf (0-5)
[2020-03-04] MEDS: HYDROcodone/APAP 10-325MG 1 EACH TAB PO SCH ×3 (05:42→14:33)
[2020-03-04] MEDS: SODIUM CHLORIDE 0.9% 1,000 ML IV SCH (06:26)
[2020-03-04 06:36] LABS: Basophils % (A) 0 %; Eosinophils # (A) 0.2 k/uL (0-0.7); Eosinophils % (A) 3 %; HCT 33.1 % (39.0-53.0); HGB 10.3 gm/dL (13.0-17.5); Hypochromasia Marked; Lymphocytes # (A) 0.9 k/uL (1.0-4.8); Lymphocytes % (A) 17 %; MCH 25.9 pg (25.0-35.0); MCHC 31.2 g/dL (31.0-37.0); Mean Platelet Volume 6.9; Monocytes # (A) 0.5 k/uL (0-1.0); Monocytes % (A) 9 %; Neutrophils # (A) 3.9 k/uL (1.3-7.7); Neutrophils % (A) 69 %; Platelet Count 199 k/uL (150-450); RBC 3.99 m/uL (4.30-5.90); RDW 14.8 % (11.5-15.5); WBC 5.6 k/uL (3.8-10.6)
[2020-03-04 06:46] LABS: African American GFR (CKD) >90 (>60 ml/min/1.73 sqM); Anion Gap 8 mmol/L; Blood Urea Nitrogen 18 mg/dL (9-20); Calcium 8.6 mg/dL (8.4-10.2); Carbon Dioxide 25 mmol/L (22-30); Chloride 99 mmol/L (98-107); Glucose 102 mg/dL (74-99); Non-African American GFR(CKD) 88 (>60 ml/min/1.73 sqM); Potassium 4.4 mmol/L (3.5-5.1); Sodium 132 mmol/L (137-145)
[2020-03-04] MEDS: HYDROmorphone 1 MG/ML 1 ML SYRINGE IVP PRN ×3 (06:56→13:36)
[2020-03-04] MEDS: DOCUSATE 100 MG CAP PO SCH (08:03)
--- NOTE | 2020-03-04 15:35 | P.PN ---
Subjective Patient still complaining of abdominal pain, nausea, and vomiting. He tolerated this morning that he vomited his breakfast. Nursing staff did not confirm that. I would reassess him in the afternoon and he informed me that he was unable to keep his lunch down. He is having output from ileostomy. He said that his abdominal pain is better compared to yesterday. He denies any fever or chills. Objective - Vital Signs Vital signs: Vital Signs Temp 97.7 F 03/04/20 11:52 Pulse 68 03/04/20 11:52 Resp 12 03/04/20 11:52 BP 109/73 03/04/20 11:52 Pulse Ox 97 03/04/20 11:52 Intake & Output 03/03/20 03/04/20 03/04/20 18:59 06:59 18:59 Other: Voiding Method Toilet Toilet # Voids 2 1 # Bowel Movements 1 - Exam General: The patient is awake and alert, in no distress Eye: there is normal conjunctiva bilaterally. Neck: The neck is supple, there is no JVD. Cardiovascular: Normal S1-S2, no S3-S4, no murmurs. Respiratory: Lungs clear to auscultation bilaterally Gastrointestinal: Abdomen is soft, nontender. Ostomy in place. Musculoskeletal: There is no pedal edema. Neurological:. Speech is normal. Skin: Skin is warm and dry - Labs CBC & Chem 7: 03/04/20 06:12 03/04/20 06:12 Labs: Abnormal Lab Results - Last 24 Hours (Table) 03/03/20 03/04/20 03/04/20 Range/Units 19:50 06:12 06:12 RBC 3.99 L (4.30-5.90) m/uL Hgb 10.3 L (13.0-17.5) gm/dL Hct 33.1 L (39.0-53.0) % Lymphocytes # 0.9 L (1.0-4.8) k/uL Sodium 132 L (137-145) mmol/L Glucose 102 H (74-99) mg/dL Urine Protein Trace H (Negative) Urine Bacteria Rare H (None) /hpf Urine Mucus Few H (None) /hpf Assessment and Plan Assessment: Abdominal pain with intractable nausea and vomiting, unclear etiology due to the chronicity of the pain -Computed tomography scan of the abdomen that has not reviewed by general surgery -Unclear significance of the presacral findings -Change Dilaudid from 1 mg every 4 hours as needed to every 3 hours and add [place] 10 2 tabs every 6 hours scheduled -urinalysis unremarkable -Anti-emetics -Surgery following closely, appreciate recommendation. Patient cleared for discharge home when stable. Acute kidney injury -resolved with IV fluid hydration Anemia -Likely dilutional, continue to monitor History of rectal cancer status post chemotherapy and radiation -Now in remission as per patient DVT prophylaxis -Lovenox
--- NOTE | 2020-03-05 07:40 | P.DS ---
Providers Date of admission: 03/04/20 09:35 Expected date of discharge: 03/05/20 Attending physician: Luis Hopkins MD Consults: 03/02/20 04:08 Consult Physician Routine Consulting Provider: Dru Lawson Reason/Comments: abdominal pain with colostomy Do you want consulting provider notified?: Yes, Notify in am Primary care physician: Josiah Connors DO Hospital Course: This is a 59-year-old male with past medical history noted below who presented to the hospital with vague abdominal pain and reported nausea. Patient was placed on observation. No actual source of his pain was identified. Patient was adamant that he is not comfortable to go home and wanted to stay in the hospital for pain management. After discontinuing his IV pain medication, patient decided to leave the hospital AGAINST MEDICAL ADVICE. His list of his medical problems. Abdominal pain with intractable nausea and vomiting, unclear etiology due to the chronicity of the pain -Computed tomography scan of the abdomen that has not reviewed by general surgery -Unclear significance of the presacral findings -urinalysis unremarkable -Surgery following closely, appreciate recommendation. Patient cleared for discharge home when stable. Acute kidney injury -resolved with IV fluid hydration Anemia -Likely dilutional, continue to monitor History of rectal cancer status post chemotherapy and radiation -Now in remission as per patient Patient Condition at Discharge: Fair Plan - Discharge Summary Discharge Rx Participant: No New Discharge Prescriptions: No Action Triamterene/Hydrochlorothiazid [Triamterene-Hctz 37.5-25 mg Tb] 1 tab PO DAILY Ondansetron [Zofran ODT] 4 mg PO TID PRN PRN Reason: Nausea Docusate [Colace] 100 mg PO DAILY HYDROcodone/APAP 10-325MG [[place] 10-325] 2 tab PO Q6H PRN #16 tab PRN Reason: Pain Discharge Medication List Triamterene/Hydrochlorothiazid [Triamterene-Hctz 37.5-25 mg Tb] 1 tab PO DAILY 10/08/19 [History] Docusate [Colace] 100 mg PO DAILY 12/14/19 [History] Ondansetron [Zofran ODT] 4 mg PO TID PRN 12/14/19 [History] HYDROcodone/APAP 10-325MG [[place] 10-325] 2 tab PO Q6H PRN #16 tab 12/26/19 [Rx] Follow up Appointment(s)/Referral(s): Josiah Connors DO [Primary Care Provider] - 1-2 days Discharge Disposition: Left Against Medical Advice
[2020-03-05 08:14] VITALS: BP 109/73; PULSE 68; RESP 12; TEMP 97.7
== END 2020-03-04 16:55 | disposition left against medical advice (07) | DRG 392 ==
LOC: EC 16:04 → 1SOBS 19:26 → OBSVTOIN 03-04 09:35
PROVIDERS: ADMIT Internal Medicine; ATTEND Internal Medicine
PROC: 05HF33Z Insertion of Infusion Device into Left Cephalic Vein, Percutaneous Approach (ICD-10-PCS; principal; 2020-03-02 10:50)
DX: R10.84 Generalized abdominal pain (principal); Z68.41 Body mass index [BMI] 40.0-44.9, adult; N17.9 Acute kidney failure, unspecified; Z11.59 Encounter for screening for other viral diseases; E66.01 Morbid (severe) obesity due to excess calories; Z93.3 Colostomy status; R19.7 Diarrhea, unspecified; K21.9 Gastro-esophageal reflux disease without esophagitis; G89.29 Other chronic pain; G62.9 Polyneuropathy, unspecified; M54.5 Low back pain; M15.9 Polyosteoarthritis, unspecified; D72.829 Elevated white blood cell count, unspecified; E86.0 Dehydration; R79.89 Other specified abnormal findings of blood chemistry; E83.52 Hypercalcemia; R11.2 Nausea with vomiting, unspecified; K62.89 Other specified diseases of anus and rectum; D50.9 Iron deficiency anemia, unspecified; Z79.899 Other long term (current) drug therapy; Z85.048 Personal history of other malignant neoplasm of rectum, rectosigmoid junction, and anus; Z90.49 Acquired absence of other specified parts of digestive tract; Z98.890 Other specified postprocedural states; Z87.891 Personal history of nicotine dependence; Z92.21 Personal history of antineoplastic chemotherapy; Z92.3 Personal history of irradiation; Z83.3 Family history of diabetes mellitus; Z80.0 Family history of malignant neoplasm of digestive organs; Z82.49 Family history of ischemic heart disease and other diseases of the circulatory system
CPT/HCPCS: 36410; 74177; 76937; 80048; 80053; 81001; 82150; 83605; 83690; 85025; 85027; 96361; 96374; 96375; 99285

== ENCOUNTER 2020-05-11 16:02 | Inpatient (IN) | payer OTHER ==
[2020-05-11] MEDS ORDERED: METOCLOPRAMIDE 5 MG/ML 2 ML VIAL IVP STA (16:12)
[2020-05-11] MEDS ORDERED: SODIUM CHLORIDE 0.9% 1,000 ML IV STA (16:12)
[2020-05-11] MEDS ORDERED: FAMOTIDINE 20 MG/2 ML VIAL IV STA (16:13)
[2020-05-11] MEDS ORDERED: HYDROmorphone 1 MG/ML 1 ML SYRINGE IVP STA (16:13)
--- NOTE | 2020-05-11 16:15 | ED ---
General Adult HPI - General Stated complaint: Nausea Vomiting Time Seen by Provider: 05/11/20 16:05 Source: patient, EMS, RN notes reviewed, old records reviewed Mode of arrival: EMS Limitations: no limitations - History of Present Illness Initial comments: Patient is a pleasant 59-year-old male presenting to the emergency Department with complaints of nausea vomiting and abdominal discomfort. Onset of symptoms was around 36 hours ago. Patient has had nausea with around 15 episodes of emesis. Patient has had some diarrhea, up to 10 times. Patient has abdominal discomfort, more in the lower abdomen. Patient has had similar episodes approximate 6 or 8 times. Patient was in the hospital here month ago. Patient was also in [place] however etiology has been undetermined. No fever. - Related Data Home Medications Medication Instructions Recorded Confirmed Triamterene/Hydrochlorothiazid 1 tab PO DAILY 10/08/19 03/01/20 [Triamterene-Hctz 37.5-25 mg Tb] Docusate [Colace] 100 mg PO DAILY 12/14/19 03/01/20 Ondansetron [Zofran ODT] 4 mg PO TID PRN 12/14/19 03/01/20 Previous Rx's Medication Instructions Recorded HYDROcodone/APAP 10-325MG [[place] 2 tab PO Q6H PRN #16 tab 12/26/19 10-325] Allergies Allergy/AdvReac Type Severity Reaction Status Date / Time No Known Allergies Allergy Verified 05/11/20 16:17 Review of Systems ROS Statement: Those systems with pertinent positive or pertinent negative responses have been documented in the HPI. ROS Other: All systems not noted in ROS Statement are negative. Constitutional: Denies: fever Eyes: Denies: eye pain ENT: Denies: ear pain Respiratory: Denies: cough Cardiovascular: Denies: chest pain Endocrine: Denies: fatigue Gastrointestinal: Reports: as per HPI, abdominal pain, nausea, vomiting, diarrhea Genitourinary: Denies: dysuria Musculoskeletal: Denies: back pain Skin: Denies: rash Neurological: Denies: weakness Past Medical History Past Medical History: Cancer, GERD/Reflux, Osteoarthritis (OA) Additional Past Medical History / Comment(s): Pt recently admitted to [facility] on 12/01/19 with a fall/struck R side abdomin/abdominal pain/vomiting/decrease ostomy function/incisional abdominal hernia. Other hx: Rectal cancer approximately 2 yrs ago with colectomy/ileostomy then reversal/chem pills and radiation, recent partial colonic obstruction-pt sent to [place] and had divert ing loop colostomy, chronic low back pain, arthritis in multiple joints, neuropathy bilateral feet/toes and R hand, iron deficiency anemia. History of Any Multi-Drug Resistant Organisms: None Reported Past Surgical History: Appendectomy, Bowel Resection, Orthopedic Surgery, Tonsillectomy Additional Past Surgical History / Comment(s): Colectomy/ileostomy with reversal, diverting loop colostomy, colonoscopies, L elbow bursa surgery, double hernioa repair Past Anesthesia/Blood Transfusion Reactions: No Reported Reaction Past Psychological History: No Psychological Hx Reported Past Alcohol Use History: Rare Past Drug Use History: None Reported - Past Family History Mother Family Medical History: Cancer, Diabetes Mellitus Additional Family Medical History / Comment(s): from liver cancer Father Family Medical History: Myocardial Infarction ([place]) Additional Family Medical History / Comment(s): Pt has not spoken to his father in years and does not know much of his medical hx. General Exam Limitations: no limitations General appearance: alert, in no apparent distress, obese Head exam: Present: normocephalic Eye exam: Present: normal appearance, PERRL ENT exam: Present: normal oropharynx Neck exam: Present: normal inspection Respiratory exam: Present: normal lung sounds bilaterally Cardiovascular Exam: Present: regular rate, normal rhythm Expanded Peripheral pulses: 2+: Dorsalis Pedis (R), Dorsalis Pedis (L) GI/Abdominal exam: Present: soft, tenderness (Moderate tenderness lower abdomen). Absent: distended Extremities exam: Present: normal inspection Neurological exam: Present: alert Psychiatric exam: Present: normal affect, normal mood Skin exam: Present: normal color Course Vital Signs 05/11/20 05/11/20 16:18 17:50 Temperature 100.1 F H 98.0 F Pulse Rate 95 99 Respiratory 18 18 Rate Blood Pressure 133/78 124/89 O2 Sat by Pulse 96 97 Oximetry Medical Decision Making - Medical Decision Making Patient was reevaluated and states some improvement with pain medication. Patient states he does not feel well and does not feel he go home. Case was discussed with Dr. Coyle who did not feel patient needed surgical admission but would consult if medicine was going to admit. Case was discussed with Dr. Rodriguez, covering for hospital call, who will admit. Patient was updated. - Lab Data Result diagrams: 05/11/20 16:31 05/11/20 16:31 Lab Results 05/11/20 05/11/20 05/11/20 Range/Units 16:31 16:31 16:31 WBC 7.9 (3.8-10.6) k/uL RBC 4.59 (4.30-5.90) m/uL Hgb 11.5 L (13.0-17.5) gm/dL Hct 36.9 L (39.0-53.0) % MCV 80.3 (80.0-100.0) fL MCH 25.0 (25.0-35.0) pg MCHC 31.2 (31.0-37.0) g/dL RDW 14.1 (11.5-15.5) % Plt Count 418 (150-450) k/uL Neutrophils % 79 % Lymphocytes % 8 % Monocytes % 11 % Eosinophils % 0 % Basophils % 0 % Neutrophils # 6.2 (1.3-7.7) k/uL Lymphocytes # 0.6 L (1.0-4.8) k/uL Monocytes # 0.9 (0-1.0) k/uL Eosinophils # 0.0 (0-0.7) k/uL Basophils # 0.0 (0-0.2) k/uL Hypochromasia Slight PT 10.8 (9.0-12.0) sec INR 1.0 (<1.2) APTT 24.0 (22.0-30.0) sec Sodium 137 (137-145) mmol/L Potassium 4.0 (3.5-5.1) mmol/L Chloride 96 L (98-107) mmol/L Carbon Dioxide 29 (22-30) mmol/L Anion Gap 12 mmol/L BUN 23 H (9-20) mg/dL Creatinine 0.95 (0.66-1.25) mg/dL Est GFR (CKD-EPI)AfAm >90 (>60 ml/min/1.73 sqM) Est GFR (CKD-EPI)NonAf 89 (>60 ml/min/1.73 sqM) Glucose 164 H (74-99) mg/dL Calcium 9.9 (8.4-10.2) mg/dL Total Bilirubin 0.6 (0.2-1.3) mg/dL AST 17 (17-59) U/L ALT 11 (4-49) U/L Alkaline Phosphatase 68 (38-126) U/L Total Protein 7.9 (6.3-8.2) g/dL Albumin 4.2 (3.5-5.0) g/dL Amylase 35 (30-110) U/L Lipase 27 (23-300) U/L - Radiology Data Radiology results: report reviewed (Computed tomography scan of the abdomen pelvis shows no acute process) Disposition Clinical Impression: Abdominal pain Disposition: ADMITTED IP TO THIS HOSP Is patient prescribed a controlled substance at d/c from ED?: No Referrals: Josiah Connors DO [Primary Care Provider] - 1-2 days Decision Time: 19:03
[2020-05-11 16:48] LABS: Basophils % (A) 0 %; Eosinophils % (A) 0 %; HCT 36.9 % (39.0-53.0); HGB 11.5 gm/dL (13.0-17.5); Hypochromasia Slight; Lymphocytes # (A) 0.6 k/uL (1.0-4.8); Lymphocytes % (A) 8 %; MCHC 31.2 g/dL (31.0-37.0); MCV 80.3 fL (80.0-100.0); Mean Platelet Volume 6.5; Monocytes # (A) 0.9 k/uL (0-1.0); Monocytes % (A) 11 %; Neutrophils # (A) 6.2 k/uL (1.3-7.7); Neutrophils % (A) 79 %; Platelet Count 418 k/uL (150-450); RBC 4.59 m/uL (4.30-5.90); RDW 14.1 % (11.5-15.5); WBC 7.9 k/uL (3.8-10.6)
[2020-05-11 16:57] LABS: Prothrombin Time 10.8 sec (9.0-12.0)
[2020-05-11 17:00] LABS: ALT 11 U/L (4-49); AST 17 U/L (17-59); African American GFR (CKD) >90 (>60 ml/min/1.73 sqM); Albumin 4.2 g/dL (3.5-5.0); Alkaline Phosphatase 68 U/L (38-126); Amylase 35 U/L (30-110); Anion Gap 12 mmol/L; Blood Urea Nitrogen 23 mg/dL (9-20); Calcium 9.9 mg/dL (8.4-10.2); Carbon Dioxide 29 mmol/L (22-30); Chloride 96 mmol/L (98-107); Glucose 164 mg/dL (74-99); Non-African American GFR(CKD) 89 (>60 ml/min/1.73 sqM); Sodium 137 mmol/L (137-145); Total Bilirubin 0.6 mg/dL (0.2-1.3); Total Protein 7.9 g/dL (6.3-8.2)
--- NOTE | 2020-05-11 17:09 | CT ---
EXAMINATION TYPE: CT abdomen pelvis w con DATE OF EXAM: 05/11/2020 COMPARISON: 03/01/2020 HISTORY: Abdominal pain, vomiting CT DLP: 2317.2 mGycm Automated exposure control for dose reduction was used. CONTRAST: Performed with IV Contrast, patient injected with 100 mL of Isovue 300. Lung bases are clear. There is no pleural effusion. Heart size is normal. There is no pericardial eff usion. There are surgical clips at the hepatic flexure of the colon. Spleen is intact. Stomach is int act. There is no pancreatic mass. Gallbladder appears normal. The bile ducts are not dilated. There i s a large lipoma at the right posterior lung base adjacent to the diaphragm and posterior pleura. There is no adrenal mass. Kidneys show satisfactory contrast opacification. There is no hydronephrosi s. Delayed images show normal renal excretion. There is no retroperitoneal adenopathy. Ureters are no t dilated. There is 4 cm somewhat rounded fat density mass in the anterior abdomen on the left side t hat is probably omental lipoma. There is 1.5 cm cyst lateral right kidney. There is increased subcutaneous density on the left side consistent with previous ostomy. There is st ent in the sigmoid colon. There is gas down to the rectum. I see no sign of a bowel obstruction. Ther e is no mesenteric edema. The vertebra have normal alignment. There is T12 30% anterior wedging uncha nged. There is disc space narrowing at L5-S1 with spurring. I see no focal bone destruction. The bony pelvis is intact. There is sclerosis and destructive changes at the right hip joint consistent with chronic avascular necrosis. IMPRESSION: There is reversal of the left side colostomy compared to old exam. No evidence of bowel obstruction. There is lipoma of the omentum on the left side and also lipoma of the pleura in the right lower lobe unchanged compared to old exam.
[2020-05-11] MEDS ORDERED: NALOXONE 0.4 MG/ML 1 ML VIAL IV PRN (19:03)
[2020-05-11] MEDS ORDERED: HYDROmorphone 0.5 MG/0.5 ML SYRINGE IVP PRN (19:03)
[2020-05-11] MEDS: HYDROmorphone 1 MG/ML 1 ML SYRINGE IVP PRN ×2 (19:10→21:21)
[2020-05-11] MEDS ORDERED: TEMAZEPAM 15 MG CAP PO PRN (19:39)
[2020-05-11] MEDS ORDERED: ALPRAZolam 0.25 MG TAB PO PRN (19:39)
--- NOTE | 2020-05-11 20:11 | XR ---
EXAMINATION TYPE: XR chest 1V portable DATE OF EXAM: 05/11/2020 COMPARISON: 12/22/2019 HISTORY: Short of breath TECHNIQUE: FINDINGS: There is no heart failure nor confluent pneumonic infiltrate. Costophrenic angles are clear . There are no hilar masses. IMPRESSION: No active cardiopulmonary disease. Normal heart. No adverse change.
--- NOTE | 2020-05-11 20:19 | HP ---
HISTORY AND PHYSICAL DATE OF SERVICE: 05/11/2020 CHIEF COMPLAINTS: Nausea, vomiting and abdominal pain. HISTORY OF PRESENT ILLNESS: This 59-year-old gentleman with a past medical history of multiple medical problems, including recurrent nausea, vomiting, history of incarcerated incisional hernia repair, history of rectosigmoid cancer with colectomy and colostomy bag, history of depression, GERD, chronic low back pain, hypertension, being followed by Dr. Connors in the outpatient setting, was admitted a couple of months ago. The patient had multiple surgeries. Dr. Lawson is following the patient in the outpatient setting. The patient was complaining of nausea, vomiting, diarrhea for the last 4 or 5 days with severe abdominal pain which is diffusely situated. The hemoglobin is 11.5. The patient had a CT scan of the abdomen and pelvis in the ER which was reviewed personally by me and showed reversal of left-sided colostomy compared to the old exam. No evidence of any bowel obstruction. Lipoma of the omentum on the left side and lipoma of the pleura on the right lower lobe, unchanged. No acute findings are noted. There is no history of any fever, rigor or chills. No history of headache, loss of consciousness, seizures. PAST MEDICAL HISTORY: History of multiple abdominal surgeries, history of GERD, history of DJD, incisional abdominal hernias, appendectomy, bowel resection. HOME MEDICATIONS: 1. Simethicone 40 mg daily p.r.n. 2. Pepcid 20 mg p.o. b.i.d. 3. Triamterene/hydrochlorothiazide 37.5/25 mg p.o. daily. 4. Prilosec 20 mg p.o. daily. 5. [place] 10 mg two tablets q.6 p.r.n. 6. Colace 100 mg daily p.r.n. ALLERGIES: NONE. FAMILY HISTORY: History of diabetes mellitus and liver cancer in the family. SOCIAL HISTORY: Previous history of smoking. No current smoking or alcohol intake. REVIEW OF SYSTEMS: ENT: No diminished hearing. No diminished vision. CARDIOVASCULAR SYSTEM: No angina, palpitations. RESPIRATORY SYSTEM: No cough, hemoptysis. GI: As mentioned earlier. : No dysuria or retention. NERVOUS SYSTEM: No numbness, weakness. ALLERGY/IMMUNOLOGY: No asthma, hayfever. MUSCULOSKELETAL: As mentioned earlier. HEMATOLOGY/ONCOLOGY: No history of anemia. ENDOCRINE: No history of diabetes, hypothyroidism. CONSTITUTIONAL: As mentioned earlier. DERMATOLOGY: Negative. RHEUMATOLOGY: Negative. PSYCHIATRY: As mentioned earlier. PHYSICAL EXAMINATION: Patient alert and oriented x3. Pulse 92, blood pressure 146/80, respiration 18, temperature 98 degrees, T-max 100.1, pulse ox 98% on room air. HEENT: Conjunctivae normal. Oral mucosa moist. NECK: No jugular venous distention. No carotid bruit. No lymph node enlargement. CARDIOVASCULAR SYSTEM: S1, S2 muffled. No S3. No S4. RESPIRATORY SYSTEM: Breath sounds diminished at the bases. No rhonchi. No crackles. ABDOMEN: Soft. Status post multiple abdominal surgeries. Healed scars present. Diffuse tenderness present. No guarding. No rigidity. No mass palpable. No ascites. Bowel sounds diminished. LEGS: No edema. No swelling. NERVOUS SYSTEM: Higher functions as mentioned earlier. Moves all 4 limbs. No focal motor or sensory deficit. LYMPHATICS: No lymph node palpable in neck, axillae or groin. SKIN: No ulcer, rash, bleeding. JOINTS: No active deforming arthropathy. LABS: WBC 7.2, hemoglobin 11.5, sodium 137, potassium 4, glucose 164. ASSESSMENT: 1. Diffuse abdominal pain, nausea, vomiting, diarrhea; possibly viral gastroenteritis. 2. Fever, for evaluation. 3. Anemia, normocytic anemia of chronic disease. 4. History of colon cancer, status post colectomy, colostomy reversal. 5. Gastroesophageal reflux disease. 6. Degenerative joint disease. 7. History of incisional hernia repair. 8. History of partial colonic obstruction, treated at [facility] with diverting loop colostomy. 9. History of chronic low back pain. 10.History of degenerative joint disease. 11.History of tonsillectomy. 12.Remote history of nicotine dependence. 13.Obesity with body mass index 45. 14.FULL CODE. RECOMMENDATIONS AND DISCUSSION: In this 59-year-old gentleman who presented with multiple complex medical issues, we will monitor the patient closely, continue the current medications, continue symptomatic treatment. Will initiate the home medications and keep the patient n.p.o. Surgical consultation. CT scan noted. The patient was tested for COVID in the past, but I would probably repeat the COVID testing also. Continue to monitor. Prognosis guarded because of multiple complex medical issues. Further recommendations to follow. A copy of this dictation is being forwarded to Dr. Connors, who is the primary physician. MMODL / IJN: [id number] /
[2020-05-11] MEDS: SODIUM CHLORIDE 0.9% 1,000 ML IV SCH (21:21)
[2020-05-12] MEDS: HYDROmorphone 1 MG/ML 1 ML SYRINGE IVP PRN ×9 (00:18→23:58)
[2020-05-12] MEDS: ONDANSETRON 4 MG/2 ML VIAL IVP PRN ×2 (01:27→16:02)
[2020-05-12] MEDS: SIMETHICONE 40 MG/0.6 ML DROPS 2,000 MG/30 ML BOTTLE PO PRN (01:28)
[2020-05-12] MEDS: SODIUM CHLORIDE 0.9% 1,000 ML IV SCH ×3 (03:13→14:14)
[2020-05-12] MEDS: PANTOPRAZOLE 40 MG/10 ML VIAL IV SCH (07:51)
[2020-05-12] MEDS: TRIAMTERENE-HCTZ 37.5-25MG 1 EACH TAB PO SCH (07:51)
[2020-05-12 09:10] LABS: Basophils % (A) 1 %; Eosinophils % (A) 1 %; HCT 32.4 % (39.0-53.0); Hypochromasia Marked; Lymphocytes % (A) 19 %; MCH 24.9 pg (25.0-35.0); MCHC 30.3 g/dL (31.0-37.0); MCV 82.4 fL (80.0-100.0); Mean Platelet Volume 6.6; Monocytes # (A) 0.7 k/uL (0-1.0); Monocytes % (A) 14 %; Neutrophils # (A) 3.3 k/uL (1.3-7.7); Neutrophils % (A) 63 %; Platelet Count 280 k/uL (150-450); RBC 3.94 m/uL (4.30-5.90); RDW 14.1 % (11.5-15.5); WBC 5.2 k/uL (3.8-10.6)
[2020-05-12 09:20] LABS: HGB 9.8 gm/dL (13.0-17.5)
[2020-05-12 09:25] LABS: African American GFR (CKD) >90 (>60 ml/min/1.73 sqM); Anion Gap 8 mmol/L; Blood Urea Nitrogen 23 mg/dL (9-20); Calcium 9.1 mg/dL (8.4-10.2); Carbon Dioxide 28 mmol/L (22-30); Chloride 100 mmol/L (98-107); Glucose 122 mg/dL (74-99); Non-African American GFR(CKD) >90 (>60 ml/min/1.73 sqM); Potassium 3.9 mmol/L (3.5-5.1); Sodium 136 mmol/L (137-145)
--- NOTE | 2020-05-12 13:43 | P.GSCN ---
<Korin Rasmussen - Last Filed: 05/12/20 13:27> History of Present Illness Consult date: 05/12/20 History of present illness: CHIEF COMPLAINT: Abdominal pain with nausea, vomiting and diarrhea HISTORY OF PRESENT ILLNESS: This is a 59-year-old male with history of rectal cancer with lower anterior resection with chemo and radiation treatment. He developed a stricture at the anastomotic site and developed a hernia at his temporary ileostomy site. Stricture was treated with a stent. Unfortunately the stent lead to partial obstruction at the anastomosis. The patient then required a diverting loop colostomy at [facility]. Patient had the colostomy reversed in February at [facility]. Patient presents to the emergency room with complaints of nausea, vomiting, diarrhea and abdominal pain. Patient is had symptoms over the last 4 days. He does report the pain is located in the lower abdomen. Patient had computed tomography scan of the abdomen completed which was reviewed by Dr. Lawson. No evidence of obstruction. Patient does report having chills. He did have a low-grade temp of 100.1. He has had similar symptoms in the past. Patient denies any recent traveling or sick cont acts. PAST MEDICAL HISTORY: See list. PAST SURGICAL HISTORY: See list. MEDICATIONS: See list. ALLERGIES: See list. SOCIAL HISTORY: No illicit drug use. REVIEW OF SYSTEMS: CONSTITUTIONAL: Denies fever or chills. HEENT: Denies blurred vision, vision changes, or eye pain. Denies hemoptysis CARDIOVASCULAR: Denies chest pain or pressure. RESPIRATORY: No shortness of breath. GASTROINTESTINAL: See HPI for pertinent findings HEMATOLOGIC: Denies bleeding disorders. GENITOURINARY: Denies any blood in urine or increased urinary frequency. SKIN: Denies pruitis. Denies rash. PHYSICAL EXAM: VITAL SIGNS: Reviewed GENERAL: Well-developed in no acute distress. HEENT: No sclera icterus. Extraocular movements grossly intact. Moist buccal mucosa. Head is atraumatic, normocephalic. No nasal drainage. ABDOMEN: Soft. Obese. Nondistended. Diffuse tenderness with palpation NEUROLOGIC: Alert and oriented. Cranial nerves II through XII grossly intact. LABORATORY DATA: WBC 5.2 hemoglobin 9.8 platelets 280 AST 17 ALT 11 lipase 27 IMAGING: Computed tomography scan there is reversal of the left side colostomy compares to old exam. No evidence of bowel obstruction. There is lipoma of the omentum on the left side and also lipoma of the pleural right lower lobe unchanged. ASSESSMENT: 1. Abdominal pain 2. Nausea, vomiting and diarrhea 3. Morbid obesity 4. History of rectal cancer status post lower anterior resection with chemo and radiation treatment. 5. History of Bowel obstruction with diverting loop colostomy. Status post reversal of colostomy in February at [facility] PLAN: -Start patient on a clear liquid diet -No plans for surgical intervention Physician [employer] note has been reviewed by physician. Signing provider agrees with the documented findings, assessment, and plan of care. Past Medical History Past Medical History: Cancer, GERD/Reflux, Osteoarthritis (OA) Additional Past Medical History / Comment(s): Pt admitted to [facility] on 12/01/19 with a fall/struck R side abdomin/abdominal pain/vomiting/decrease ostomy function/incisional abdominal hernia. Other hx: Rectal cancer 2017 with colectomy/ileostomy then reversal/chemo pills and radiation, partial colonic obstruction-pt sent to [place] and had diverting loop colostomy, chronic low back pain, arthritis in multiple joints, neuropathy bilateral feet/toes and R hand, iron deficiency anemia. History of Any Multi-Drug Resistant Organisms: None Reported Past Surgical History: Appendectomy, Bowel Resection, Orthopedic Surgery, Tonsillectomy Additional Past Surgical History / Comment(s): Colectomy/ileostomy with reversal, diverting loop colostomy, colonoscopies, L elbow bursa surgery, double hernia repair Past Anesthesia/Blood Transfusion Reactions: No Reported Reaction Past Psychological History: No Psychological Hx Reported Additional Psychological History / Comment(s): Pt resides in an apartment alone. Pt has a cane which he uses prn. He drives. Smoking Status: Former smoker Past Alcohol Use History: Rare Past Drug Use History: None Reported - Past Family History Mother Family Medical History: Cancer, Diabetes Mellitus Additional Family Medical History / Comment(s): from liver cancer Father Family Medical History: Myocardial Infarction ([place]) Additional Family Medical History / Comment(s): Pt has not spoken to his father in years and does not know much of his medical hx. Medications and Allergies Home Medications Medication Instructions Recorded Confirmed Type Triamterene/Hydrochlorothiazid 1 tab PO DAILY 10/08/19 05/11/20 History [Triamterene-Hctz 37.5-25 mg Tb] Docusate [Colace] 100 mg PO DAILY PRN 12/14/19 05/11/20 History HYDROcodone/APAP 10-325MG [[place] 2 tab PO Q6H PRN #16 tab 12/26/19 05/11/20 Rx 10-325] Famotidine [Pepcid] 20 mg PO BID 05/11/20 05/11/20 History Omeprazole [PriLOSEC] 20 mg PO BID-W/MEALS 05/11/20 05/11/20 History Simethicone [Infants' Mylicon] 40 mg PO DAILY PRN 05/11/20 05/11/20 History Allergies Allergy/AdvReac Type Severity Reaction Status Date / Time No Known Allergies Allergy Verified 05/11/20 20:45 Surgical - Exam Vital Signs Temp Pulse Resp BP Pulse Ox 100.1 F H 95 18 133/78 96 05/11/20 16:18 05/11/20 16:18 05/11/20 16:18 05/11/20 16:18 05/11/20 16:18 Results - Labs 05/12/20 08:42 05/12/20 08:42 Abnormal Lab Results - Last 24 Hours (Table) 05/11/20 05/11/20 05/11/20 Range/Units 16:31 16:31 16:31 RBC (4.30-5.90) m/uL Hgb 11.5 L (13.0-17.5) gm/dL Hct 36.9 L (39.0-53.0) % MCH (25.0-35.0) pg MCHC (31.0-37.0) g/dL Lymphocytes # 0.6 L (1.0-4.8) k/uL ESR 96 H (0-15) mm/hr Sodium (137-145) mmol/L Chloride 96 L (98-107) mmol/L BUN 23 H (9-20) mg/dL Glucose 164 H (74-99) mg/dL C-Reactive Protein (<10.0) mg/L 05/11/20 05/12/20 05/12/20 Range/Units 16:31 08:42 08:42 RBC 3.94 L (4.30-5.90) m/uL Hgb 9.8 L D (13.0-17.5) gm/dL Hct 32.4 L (39.0-53.0) % MCH 24.9 L (25.0-35.0) pg MCHC 30.3 L (31.0-37.0) g/dL Lymphocytes # (1.0-4.8) k/uL ESR (0-15) mm/hr Sodium 136 L (137-145) mmol/L Chloride (98-107) mmol/L BUN 23 H (9-20) mg/dL Glucose 122 H (74-99) mg/dL C-Reactive Protein 56.1 H (<10.0) mg/L Diabetes panel 05/11/20 05/12/20 Range/Units 16:31 08:42 Sodium 137 136 L (137-145) mmol/L Potassium 4.0 3.9 (3.5-5.1) mmol/L Chloride 96 L 100 (98-107) mmol/L Carbon Dioxide 29 28 (22-30) mmol/L BUN 23 H 23 H (9-20) mg/dL Creatinine 0.95 0.82 (0.66-1.25) mg/dL Glucose 164 H 122 H (74-99) mg/dL Calcium 9.9 9.1 (8.4-10.2) mg/dL AST 17 (17-59) U/L ALT 11 (4-49) U/L Alkaline Phosphatase 68 (38-126) U/L Total Protein 7.9 (6.3-8.2) g/dL Albumin 4.2 (3.5-5.0) g/dL Calcium panel 05/11/20 05/12/20 Range/Units 16:31 08:42 Calcium 9.9 9.1 (8.4-10.2) mg/dL Albumin 4.2 (3.5-5.0) g/dL Pituitary panel 05/11/20 05/12/20 Range/Units 16:31 08:42 Sodium 137 136 L (137-145) mmol/L Potassium 4.0 3.9 (3.5-5.1) mmol/L Chloride 96 L 100 (98-107) mmol/L Carbon Dioxide 29 28 (22-30) mmol/L BUN 23 H 23 H (9-20) mg/dL Creatinine 0.95 0.82 (0.66-1.25) mg/dL Glucose 164 H 122 H (74-99) mg/dL Calcium 9.9 9.1 (8.4-10.2) mg/dL Adrenal panel 05/11/20 05/12/20 Range/Units 16:31 08:42 Sodium 137 136 L (137-145) mmol/L Potassium 4.0 3.9 (3.5-5.1) mmol/L Chloride 96 L 100 (98-107) mmol/L Carbon Dioxide 29 28 (22-30) mmol/L BUN 23 H 23 H (9-20) mg/dL Creatinine 0.95 0.82 (0.66-1.25) mg/dL Glucose 164 H 122 H (74-99) mg/dL Calcium 9.9 9.1 (8.4-10.2) mg/dL Total Bilirubin 0.6 (0.2-1.3) mg/dL AST 17 (17-59) U/L ALT 11 (4-49) U/L Alkaline Phosphatase 68 (38-126) U/L Total Protein 7.9 (6.3-8.2) g/dL Albumin 4.2 (3.5-5.0) g/dL <Dru Lawson - Last Filed: 05/12/20 18:22> History of Present Illness History of present illness: As above. Patient with nausea vomiting and diarrhea. Apparently colostomy was recently reversed. CAT scan shows no obvious abnormalities. We'll follow. Surgical - Exam Vital Signs Temp Pulse Resp BP Pulse Ox 100.1 F H 95 18 133/78 96 05/11/20 16:18 05/11/20 16:18 05/11/20 16:18 05/11/20 16:18 05/11/20 16:18 Results - Labs 05/12/20 08:42 05/12/20 08:42 Abnormal Lab Results - Last 24 Hours (Table) 05/11/20 05/11/20 05/12/20 Range/Units 16:31 16:31 08:42 RBC 3.94 L (4.30-5.90) m/uL Hgb 9.8 L D (13.0-17.5) gm/dL Hct 32.4 L (39.0-53.0) % MCH 24.9 L (25.0-35.0) pg MCHC 30.3 L (31.0-37.0) g/dL ESR 96 H (0-15) mm/hr Sodium (137-145) mmol/L BUN (9-20) mg/dL Glucose (74-99) mg/dL C-Reactive Protein 56.1 H (<10.0) mg/L Urine Opiates Screen (NotDetected) 05/12/20 05/12/20 Range/Units 08:42 Unknown RBC (4.30-5.90) m/uL Hgb (13.0-17.5) gm/dL Hct (39.0-53.0) % MCH (25.0-35.0) pg MCHC (31.0-37.0) g/dL ESR (0-15) mm/hr Sodium 136 L (137-145) mmol/L BUN 23 H (9-20) mg/dL Glucose 122 H (74-99) mg/dL C-Reactive Protein (<10.0) mg/L Urine Opiates Screen Detected H (NotDetected) Diabetes panel 05/12/20 Range/Units 08:42 Sodium 136 L (137-145) mmol/L Potassium 3.9 (3.5-5.1) mmol/L Chloride 100 (98-107) mmol/L Carbon Dioxide 28 (22-30) mmol/L BUN 23 H (9-20) mg/dL Creatinine 0.82 (0.66-1.25) mg/dL Glucose 122 H (74-99) mg/dL Calcium 9.1 (8.4-10.2) mg/dL Calcium panel 05/12/20 Range/Units 08:42 Calcium 9.1 (8.4-10.2) mg/dL Pituitary panel 05/12/20 Range/Units 08:42 Sodium 136 L (137-145) mmol/L Potassium 3.9 (3.5-5.1) mmol/L Chloride 100 (98-107) mmol/L Carbon Dioxide 28 (22-30) mmol/L BUN 23 H (9-20) mg/dL Creatinine 0.82 (0.66-1.25) mg/dL Glucose 122 H (74-99) mg/dL Calcium 9.1 (8.4-10.2) mg/dL Adrenal panel 09/16/20 Range/Units 08:42 Sodium 136 L (137-145) mmol/L Potassium 3.9 (3.5-5.1) mmol/L Chloride 100 (98-107) mmol/L Carbon Dioxide 28 (22-30) mmol/L BUN 23 H (9-20) mg/dL Creatinine 0.82 (0.66-1.25) mg/dL Glucose 122 H (74-99) mg/dL Calcium 9.1 (8.4-10.2) mg/dL
[2020-05-12 14:59] VITALS: BMI 45.0
--- NOTE | 2020-05-12 15:11 | PN ---
PROGRESS NOTE DATE OF SERVICE: 05/12/2020 This is a 59-year-old gentleman, admitted with diffuse abdominal pain, nausea, vomiting, is being evaluated for enteritis. The patient also had some fever. The patient also had elevated ESR and CRP also. Dr. Lawson has seen the patient previously. Patient had multiple surgeries previously including diverting colostomy. Patient is being closely monitored and empiric treatment has been offered. PAST MEDICAL HISTORY: Reviewed. REVIEW OF SYSTEMS: CARDIOVASCULAR SYSTEM: No angina. RESPIRATION: As mentioned earlier. GI: As mentioned earlier. : No dysuria. NERVOUS SYSTEM; No numbness or weakness. CURRENT MEDICATIONS: Reviewed include: 1. Echo. 2. Xanax. 3. Dilaudid. 4. Narcan. 5. Zofran. 6. Protonix. 7. Restoril. 8. Maxzide. PHYSICAL EXAM: Patient is alert oriented x3. Pulse 70, blood pressure 130/76, respiration 14, temperature 97.7, pulse ox 98% on room air. HEENT: Oral mucosa moist. NECK: No jugular venous distention. No lymph node enlargement. CARDIOVASCULAR SYSTEM: S1, S2, muffled. RESPIRATION: Breath sounds diminished at the bases, a few scattered rhonchi, no crackles. ABDOMEN: Soft, mild diffuse discomfort. LEGS: No edema. No swelling. NERVOUS SYSTEM: No focal deficits. LABS: WBC 5.8, hemoglobin is 9.2, sodium 136. ASSESSMENT: 1. Diffuse abdominal pain, nausea, vomiting, diarrhea, possibly acute enteritis or acute colitis. 2. Fever for evaluation. 3. Anemia, normocytic anemia of chronic disease. 4. History of colon cancer, status post colectomy and colostomy reversal. 5. Gastroesophageal reflux disease. 6. Degenerative joint disease. 7. History of incisional hernia repair. 8. History of partial colonic obstruction treated at [facility] with diverting loop colostomy. 9. History of chronic low back pain. 10.History of degenerative joint disease. 11.History of tonsillectomy. 12.Remote history of nicotine dependence. 13.Obesity with body mass index of 45. 14.FULL CODE. RECOMMENDATION: Recommend to continue current medications, continue symptomatic treatment, otherwise will follow closely with Surgery. Will also obtain Gastroenterology consultation. Monitor blood sugars closely and continue the current medications. Guarded prognosis. Further recommendations to follow. Cut down the IV fluids. MMODL / IJN: [id number] /
[2020-05-12] MEDS: HYDROcodone/APAP 10-325MG 1 EACH TAB PO PRN ×2 (15:59→21:06)
[2020-05-12 16:56] LABS: Appearance,Urine Clear (Clear); Bilirubin,Urine Negative (Negative); Blood,Urine Negative (Negative); Color,Urine Yellow; Glucose,Urine (UA) Negative (Negative); Ketones,Urine Negative (Negative); Leukocyte Esterase,Urine Negative (Negative); Nitrite,Urine Negative (Negative); Protein,Urine Negative (Negative)
[2020-05-12 17:17] LABS: Phencyclidine Screen,Urine Not Detected (NotDetected); Urn Cannabinoid Scrn Not Detected (NotDetected)
[2020-05-12 17:18] LABS: Amphetamine Screen,Urine Not Detected (NotDetected); Barbiturate Screen,Urine Not Detected (NotDetected); Benzodiazepines Screen,Urine Not Detected (NotDetected); Cocaine Screen,Urine Not Detected (NotDetected); Methadone Screen, Urine Not Detected (NotDetected); Opiate Screen,Urine Detected (NotDetected); Oxycodone Screen, Urine Not Detected (NotDetected); Tricyclic Antidepressant,Urine Not Detected (NotDetected)
[2020-05-13] MEDS: HYDROcodone/APAP 10-325MG 1 EACH TAB PO PRN ×4 (02:59→20:49)
[2020-05-13] MEDS: HYDROmorphone 1 MG/ML 1 ML SYRINGE IVP PRN ×7 (03:00→21:41)
[2020-05-13] MEDS: ONDANSETRON 4 MG/2 ML VIAL IVP PRN ×2 (07:01)
[2020-05-13] MEDS: PANTOPRAZOLE 40 MG/10 ML VIAL IV SCH (08:46)
[2020-05-13 08:55] LABS: Basophils % (A) 1 %; Eosinophils # (A) 0.1 k/uL (0-0.7); Eosinophils % (A) 2 %; HCT 29.4 % (39.0-53.0); HGB 9.2 gm/dL (13.0-17.5); Hypochromasia Moderate; Lymphocytes # (A) 0.8 k/uL (1.0-4.8); Lymphocytes % (A) 16 %; MCH 25.1 pg (25.0-35.0); MCHC 31.2 g/dL (31.0-37.0); MCV 80.3 fL (80.0-100.0); Mean Platelet Volume 6.2; Monocytes # (A) 0.5 k/uL (0-1.0); Monocytes % (A) 10 %; Neutrophils # (A) 3.3 k/uL (1.3-7.7); Neutrophils % (A) 69 %; Platelet Count 207 k/uL (150-450); RBC 3.66 m/uL (4.30-5.90); RDW 14.3 % (11.5-15.5); WBC 4.7 k/uL (3.8-10.6)
[2020-05-13 09:11] LABS: African American GFR (CKD) >90 (>60 ml/min/1.73 sqM); Anion Gap 6 mmol/L; Blood Urea Nitrogen 14 mg/dL (9-20); Calcium 8.8 mg/dL (8.4-10.2); Carbon Dioxide 29 mmol/L (22-30); Chloride 100 mmol/L (98-107); Glucose 101 mg/dL (74-99); Non-African American GFR(CKD) >90 (>60 ml/min/1.73 sqM); Potassium 3.9 mmol/L (3.5-5.1); Sodium 135 mmol/L (137-145)
[2020-05-13] MEDS: SODIUM CHLORIDE 0.9% 1,000 ML IV SCH (10:15)
[2020-05-13] MEDS: TRIAMTERENE-HCTZ 37.5-25MG 1 EACH TAB PO SCH (10:16)
--- NOTE | 2020-05-13 12:51 | P.PN ---
Subjective Progress Note Date: 05/13/20 Principal diagnosis: Abdominal pain Patient still having pain. He states he needs to "get over the hump of pain ". He is very concerned about being discharged before his pain is resolved. Patient does admit that he has been taking too much pain medications both at home and during his hospital stay. C. diff was negative. Consult GI has been placed. He has not vomiting. Appetite remains diminished. Tolerating some liquids. White blood cell count remains normal. Objective - Vital Signs Vital signs: Vital Signs Temp 98.1 F 05/13/20 09:00 Pulse 79 05/13/20 09:00 Resp 20 05/13/20 09:00 BP 126/65 05/13/20 09:00 Pulse Ox 97 05/13/20 09:00 Intake & Output 05/12/20 05/13/20 05/13/20 18:59 06:59 18:59 Weight 138.346 kg Other: Voiding Method Toilet Toilet # Voids 2 1 # Bowel Movements 2 1 - Exam Abdomen: Soft, nondistended, mild tenderness at recent incision site, no erythema - Labs CBC & Chem 7: 05/13/20 08:40 05/13/20 08:40 Labs: Abnormal Lab Results - Last 24 Hours (Table) 05/12/20 05/13/20 05/13/20 Range/Units Unknown 08:40 08:40 RBC 3.66 L (4.30-5.90) m/uL Hgb 9.2 L (13.0-17.5) gm/dL Hct 29.4 L (39.0-53.0) % Lymphocytes # 0.8 L (1.0-4.8) k/uL Sodium 135 L (137-145) mmol/L Glucose 101 H (74-99) mg/dL Urine Opiates Screen Detected H (NotDetected) Assessment and Plan (1) Abdominal pain Narrative/Plan: Patient with chronic pain. No abnormalities on recent CAT scan to explain his symptoms. Advance diet as tolerated. No surgical intervention planned. If the patient's pain recurs I did notify the patient he should follow up with his surgical team at [facility] to discuss further. Await GI evaluation. Current Visit: Yes Status: Acute Code(s): R10.9 - UNSPECIFIED ABDOMINAL PAIN SNOMED Code(s): 01294265
--- NOTE | 2020-05-13 13:12 | PN ---
PROGRESS NOTE DATE OF SERVICE: 05/13/2020 This is a 59-year-old gentleman who was admitted with abdominal pain, has been evaluated for inflammatory bowel disease. Surgery and gastroenterology following the patient. No chest pain. No palpitations. Patient still has abdominal pain. No diarrhea is reported. PHYSICAL EXAMINATION: Alert and oriented. Pulse 79, blood pressure 120/62, respiration 20, temperature 98.1, pulse ox 97% on room air. HEENT: Conjunctivae normal. NECK: No jugular venous distension. CARDIOVASCULAR SYSTEM: S1, S2, muffled. RESPIRATION: Breath sounds diminished at the bases, no rhonchi, no crackles. ABDOMEN: Soft, mild diffuse tenderness. LEGS: No edema, no swelling. LABS: WBC is 4.2, hemoglobin 9.2, sodium is 135. ASSESSMENT: 1. Diffuse abdominal pain, nausea and diarrhea, possibly acute enteritis or acute colitis, rule out inflammatory bowel disease. 2. Fever for evaluation. 3. Anemia, normocytic anemia of chronic disease. 4. History of colon cancer, status post colectomy and colostomy reversal. 5. GERD. 6. DJD. 7. History of incisional hernia repair. 8. History of partial colonic obstruction treated at [facility] with diverting loop colostomy. 9. History of chronic low back pain. 10.History of tonsillectomy. 11.Remote history of nicotine dependence. 12.Obesity with body mass index of 45. 13.FULL CODE. RECOMMENDATION: Recommend to continue current medications, current management and symptomatic treatment, otherwise, continue with the pain medications. Sedimentation rate and CRP are elevated. Will await the evaluation by Gastroenterology. Guarded prognosis. Further recommendations to follow. MMODL / IJN: [id number] /
[2020-05-13] MEDS: KETOROLAC 15 MG/ML 1 ML VIAL IVP SCH ×2 (13:28→20:50)
[2020-05-13] MEDS ORDERED: DICYCLOMINE 20 MG TAB PO PRN (14:04)
[2020-05-13] MEDS ORDERED: DICYCLOMINE 10 MG CAP PO PRN (14:07)
--- NOTE | 2020-05-14 00:01 | CONS ---
CONSULTATION DATE OF DICTATION: 05/13/2020 REASON FOR CONSULTATION: Nausea, vomiting, abdominal pain and diarrhea. HISTORY OF PRESENT ILLNESS: The patient is a 59-year-old pleasant white male who was diagnosed with rectal cancer towards the end of 2016 and subsequently underwent chemo radiation followed by low anterior resection with a temporary ileostomy at [facility]. 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 Since his initial surgery, the patient has been having severe lower abdominal pain with intermittent episodes of nausea, vomiting, and diarrhea. He is being followed by at [facility]/Colorectal Surgery Department. The patient states that the pain is mostly in the lower abdominal area with no aggravating or relieving factors. He has nausea, vomiting once or twice a week and some days more intense. He usually has diarrhea with bowel movements 4 to 5 a day which are loose to watery in consistency, but no rectal bleeding. Pain is always in the suprapubic and left lower quadrant area. Occasionally it radiates to the epigastric area. On review of the records, he did have a flexible sigmoidoscopy by Dr. Lawson in September of this year that showed presence of colonic metal stent of the anastomosis with partial occlusion. During this hospitalization, the patient did have a CT of the abdomen and pelvis done that showed no evidence of bowel obstruction. PAST MEDICAL HISTORY: Rectal cancer status post chemo radiation followed by surgery as described above, history of gastroesophageal reflux disease, degenerative joint disease, abdominal hernia repair. PAST SURGICAL HISTORY: Abdominal hernia repair, appendectomy, low anterior resection with initial ileostomy subsequently reversal of the ileostomy. HOME MEDICATIONS: Home medications include Pepcid, simethicone, triamterene hydrochlorothiazide, [place], Colace, Prilosec. ALLERGIES: None. SOCIAL HISTORY: No smoking. No alcohol use. FAMILY HISTORY: Mother has diabetes mellitus. Father had liver cancer. REVIEW OF SYSTEMS: CARDIOPULMONARY: He denies any chest pain or shortness of breath. GENITOURINARY: No dysuria or hematuria. MUSCULOSKELETAL: Unremarkable. SKIN: Unremarkable. ENDOCRINE: Unremarkable. PSYCHIATRIC: Unremarkable. NEUROLOGY: Unremarkable. ENT/VISION: Unremarkable. CONSTITUTIONAL: A 50 pound weight loss. No fever, chills, night sweats. ONCOLOGY: As mentioned above. PHYSICAL EXAMINATION: He appears comfortable. No apparent distress. Vital signs are stable. Blood pressure 138/84, pulse rate 86 per minute and afebrile. HEENT EXAMINATION: Unremarkable. Conjunctivae pink. Sclerae anicteric. Oral cavity, no lesions. NECK: No JVD or lymph node enlargement. CHEST: Clear to auscultation. HEART: Regular rate and rhythm. ABDOMEN: Soft, it was nontender, nondistended. There was minimal tenderness in the left lower quadrant area. Rest of the abdomen is benign. EXTREMITIES: No pedal edema. SKIN: No rashes. NEUROLOGIC: Alert and oriented x3. No focal deficits. LABS: WBC 4.7, hemoglobin 9.2, platelets normal. Basic metabolic panel is within normal limits. AST and ALT of , respectively. T-bilirubin and alkaline phosphatase normal. Amylase and lipase are normal. BUN 14, creatinine 0.80. CT of the abdomen and pelvis done in the emergency room yesterday evidence of stent in the sigmoid colon, no evidence of bowel obstruction, no mesenteric edema noted. IMPRESSION: 1. Chronic lower abdominal pain with intermittent episodes of nausea, vomiting, and diarrhea for the last 2 years duration. The patient symptoms have been going on since his initial surgery about a year and a half ago. 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 He underwent reversal of his ileostomy a month ago at [facility]. Recent CAT scan of the abdomen done yesterday did not show any evidence of bowel obstruction and patent colonic stent. Etiology of his abdominal pain remains unclear at this time. 2. History of rectal cancer, status post chemo radiation followed by low anterior resection a year ago at [facility]. 3. Normocytic anemia. 4. Gastroesophageal reflux disease. 5. History of hypertension. RECOMMENDATIONS: 1. Will give him a trial of Bentyl 10 mg 4 times daily as needed. 2. Continue with high-fiber diet and fiber supplements as needed. 3. If he continues to have persistent symptoms, may benefit from a flexible sigmoidoscopy. 4. Advance diet as tolerated. 5. The plan was discussed with the patient as well as Dr. Lawson. Thank you for this consultation. MMODL / IJN: [id number] /
[2020-05-14] MEDS: SODIUM CHLORIDE 0.9% 1,000 ML IV SCH ×3 (00:36→15:47)
[2020-05-14] MEDS: HYDROmorphone 1 MG/ML 1 ML SYRINGE IVP PRN ×5 (00:39→12:43)
[2020-05-14] MEDS: KETOROLAC 15 MG/ML 1 ML VIAL IVP SCH ×4 (01:23→20:33)
[2020-05-14] MEDS: HYDROcodone/APAP 10-325MG 1 EACH TAB PO PRN ×4 (02:32→21:30)
[2020-05-14] MEDS: ONDANSETRON 4 MG/2 ML VIAL IVP PRN (07:48)
[2020-05-14] MEDS: TRIAMTERENE-HCTZ 37.5-25MG 1 EACH TAB PO SCH (08:54)
[2020-05-14] MEDS: PANTOPRAZOLE 40 MG/10 ML VIAL IV SCH (08:54)
[2020-05-14] MEDS: SIMETHICONE 40 MG/0.6 ML DROPS 2,000 MG/30 ML BOTTLE PO PRN ×2 (08:55→17:28)
--- NOTE | 2020-05-14 11:22 | P.PN ---
<Korin Rasmussen - Last Filed: 05/14/20 11:08> Subjective Progress Note Date: 05/14/20 CHIEF COMPLAINT: Abdominal pain HISTORY OF PRESENT ILLNESS: Patient is still reporting lower abdominal pain. He is reporting nausea and no vomiting. He reports 2 episodes of diarrhea yesterday that were small. He is asking if his diet can be advanced. He is currently on clears. He would like to eat a grilled cheese sandwich. He is afebrile. GI service added Jaspal. PHYSICAL EXAM: VITAL SIGNS: Reviewed. GENERAL: Well-developed in no acute distress. HEENT: No sclera icterus. Extraocular movements grossly intact. Moist buccal mucosa. Head is atraumatic, normocephalic. ABDOMEN: Soft. Mild lower abdominal tenderness. Nondistended NEUROLOGIC: Alert and oriented. Cranial nerves II through XII grossly intact. ASSESSMENT: 1. Abdominal pain: Patient with chronic pain. No abnormalities on recent CAT scan to explain his symptoms. 2. Nausea, vomiting and diarrhea 3. Morbid obesity 4. History of rectal cancer status post lower anterior resection with chemo and radiation treatment. 5. History of Bowel obstruction with diverting loop colostomy. Status post reversal of colostomy in February at [facility] PLAN: -Advance diet to a low fiber diet -No surgical intervention planned -Discussed decreasing the amount of pain medications patient takes -If pain continues to recur patient has been informed that he should follow-up with his surgical team at [facility] to discuss further Physician Assembly Lead Person note has been reviewed by physician. Signing provider agrees with the documented findings, assessment, and plan of care. Objective - Vital Signs Vital signs: Vital Signs Temp 98 F 05/14/20 09:00 Pulse 71 05/14/20 09:00 Resp 18 05/14/20 09:00 BP 120/59 05/14/20 09:00 Pulse Ox 97 05/14/20 09:00 Intake & Output 05/13/20 05/14/20 05/14/20 18:59 06:59 18:59 Intake Total 340 480 600 Balance 340 480 600 Intake: Oral 240 480 600 Other 100 Other: Voiding Method Toilet # Voids 1 # Bowel Movements 1 - Labs CBC & Chem 7: 05/13/20 08:40 05/13/20 08:40 Labs: Microbiology - Last 24 Hours (Table) 05/13/20 12:20 Stool Culture - Preliminary Stool <Dru Lawson - Last Filed: 05/14/20 14:13> Subjective As above. Patient still having pain although admits now that he does have an issue with narcotic dependence. He is tolerating small volumes of food. He did have a bowel movement. Stools remain loose. Continue Bentyl. No surgical intervention planned. Objective - Vital Signs Vital signs: Vital Signs Temp 98 F 05/14/20 09:00 Pulse 71 05/14/20 09:00 Resp 18 05/14/20 09:00 BP 120/59 05/14/20 09:00 Pulse Ox 97 05/14/20 09:00 Intake & Output 05/13/20 05/14/20 05/14/20 18:59 06:59 18:59 Intake Total 340 480 800 Balance 340 480 800 Intake: Oral 240 480 800 Other 100 Other: Voiding Method Toilet # Voids 1 # Bowel Movements 1 - Labs CBC & Chem 7: 05/14/20 11:30 05/14/20 11:30 Labs: Abnormal Lab Results - Last 24 Hours (Table) 05/14/20 05/14/20 Range/Units 11:30 11:30 RBC 3.98 L (4.30-5.90) m/uL Hgb 9.8 L (13.0-17.5) gm/dL Hct 32.1 L (39.0-53.0) % MCH 24.5 L (25.0-35.0) pg MCHC 30.4 L (31.0-37.0) g/dL Lymphocytes # 0.7 L (1.0-4.8) k/uL Sodium 135 L (137-145) mmol/L Microbiology - Last 24 Hours (Table) 05/13/20 12:20 Stool Culture - Preliminary Stool Assessment and Plan (1) Abdominal pain Current Visit: Yes Status: Acute Code(s): R10.9 - UNSPECIFIED ABDOMINAL PAIN SNOMED Code(s): 18359644
[2020-05-14 11:49] LABS: Basophils % (A) 1 %; Eosinophils # (A) 0.1 k/uL (0-0.7); Eosinophils % (A) 3 %; HCT 32.1 % (39.0-53.0); HGB 9.8 gm/dL (13.0-17.5); Hypochromasia Moderate; Lymphocytes # (A) 0.7 k/uL (1.0-4.8); Lymphocytes % (A) 15 %; MCH 24.5 pg (25.0-35.0); MCHC 30.4 g/dL (31.0-37.0); MCV 80.6 fL (80.0-100.0); Mean Platelet Volume 6.5; Monocytes # (A) 0.4 k/uL (0-1.0); Monocytes % (A) 9 %; Neutrophils # (A) 3.2 k/uL (1.3-7.7); Neutrophils % (A) 71 %; Platelet Count 217 k/uL (150-450); RBC 3.98 m/uL (4.30-5.90); RDW 14.4 % (11.5-15.5); WBC 4.5 k/uL (3.8-10.6)
[2020-05-14 12:02] LABS: African American GFR (CKD) >90 (>60 ml/min/1.73 sqM); Anion Gap 8 mmol/L; Blood Urea Nitrogen 10 mg/dL (9-20); Calcium 8.8 mg/dL (8.4-10.2); Carbon Dioxide 27 mmol/L (22-30); Chloride 100 mmol/L (98-107); Glucose 92 mg/dL (74-99); Non-African American GFR(CKD) >90 (>60 ml/min/1.73 sqM); Potassium 3.6 mmol/L (3.5-5.1); Sodium 135 mmol/L (137-145)
--- NOTE | 2020-05-14 12:35 | P.PN ---
Subjective Progress Note Date: 05/14/20 Principal diagnosis: Nausea, vomiting, abdominal pain and diarrhea This is a 59-year-old male who was diagnosed with rectal cancer to 2016 subsequently underwent chemoradiation followed by low anterior resection with temporary ileostomy at [facility]. 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 Since his initial surgery he has been having complaints of nausea, vomiting, and diarrhea. He states he goes small amounts up to 10 times a day. He is being followed at [facility] with a colorectal surgeon. He also had a flexible sigmoidoscopy by Dr. Coyle in September 2019 that showed presence of the colonic metal stent of the anastomosis with partial occlusion. He states today he still has diffuse abdominal pain, he is not having any vomiting, still has some small loose bowel movements. Objective - Vital Signs Vital signs: Vital Signs Temp 98 F 05/14/20 09:00 Pulse 71 05/14/20 09:00 Resp 18 05/14/20 09:00 BP 120/59 05/14/20 09:00 Pulse Ox 97 05/14/20 09:00 Intake & Output 05/13/20 05/14/20 05/14/20 18:59 06:59 18:59 Intake Total 340 480 600 Balance 340 480 600 Intake: Oral 240 480 600 Other 100 Other: Voiding Method Toilet # Voids 1 # Bowel Movements 1 - Exam General appearance: The patient is alert, oriented, in no acute distress. HET: Head is normocephalic and atraumatic. [place]. Sclerae anicteric. Neck: Supple without lymphadenopathy. Trachea midline. Abdomen: Soft, use tenderness, nondistended with bowel sounds. No palpable organomegaly or masses. Extremities: Normal skin color and turgor. No pedal edema. Skin: No rashes Neurological: No focal deficits. Alert and oriented 3. - Labs CBC & Chem 7: 05/14/20 11:30 05/14/20 11:30 Labs: Abnormal Lab Results - Last 24 Hours (Table) 05/14/20 05/14/20 Range/Units 11:30 11:30 RBC 3.98 L (4.30-5.90) m/uL Hgb 9.8 L (13.0-17.5) gm/dL Hct 32.1 L (39.0-53.0) % MCH 24.5 L (25.0-35.0) pg MCHC 30.4 L (31.0-37.0) g/dL Lymphocytes # 0.7 L (1.0-4.8) k/uL Sodium 135 L (137-145) mmol/L Microbiology - Last 24 Hours (Table) 05/13/20 12:20 Stool Culture - Preliminary Stool Assessment and Plan Assessment: 1. Chronic lower abdominal pain with intermittent episodes nausea, vomiting, and diarrhea for last 2 years duration. The patient symptoms have been going on since her initial surgery about a year and apical. 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 He underwent reversal of his ileostomy a month ago at [facility]. Recent CAT scan of the abdomen done yesterday did not show any evidence of bowel obstruction and patent colonic stent. Etiology of his abdominal pain remains unclear at this time. 2. History of rectal cancer, status post chemoradiation followed by low anterior resection a year ago at [facility]. 3. Normocytic anemia 4. Gastroesophageal reflux disease. 5. History of hypertension Plan: 1. Trial of Bentyl 10 mg 4 times daily, will decrease to BID and send script for home 2. Continue with high-fiber diet and fiber supplements as needed 3. If he continues to have persistent symptoms, may benefit from a flexible sigmoid endoscopy in the future 4. Advance diet as tolerated 5. The plan was discussed with the patient as well as Dr. Lawson 6. Thank you For this consultation The impression and plan of care has been dictated as directed. Dr. Karissa Johnson I performed a history and examination of this patient, discussed the same with the dictator. I agree with the dictator's note ,documented as a scribe. Any additional findings or plans will be noted.
[2020-05-14] MEDS ORDERED: DICYCLOMINE 10 MG CAP PO SCH (13:00)
[2020-05-14] MEDS ORDERED: DICYCLOMINE 10 MG CAP PO PRN (15:01)
--- NOTE | 2020-05-14 16:23 | P.PN ---
Subjective Progress Note Date: 05/14/20 Principal diagnosis: Nausea, vomiting, diarrhea/abdominal pain 59-year-old male who was diagnosed with rectal cancer to 2017 subsequently underwent chemoradiation followed by low anterior resection with temporary ileostomy at [facility]. 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 Since his initial surgery he has been having complaints of nausea, vomiting, and diarrhea. He states he goes small amounts up to 10 times a day. He is being followed at [facility] with a colorectal surgeon. He also had a flexible sigmoidoscopy by Dr. Coyle in September 2019 that showed presence of the colonic metal stent of the anastomosis with partial occlusion. 05/14/2020 Patient is seen and evaluated in room at bedside; continues to complain of severe abdominal pain; workup including CT of the abdomen done this admission shows patent colonic stent and no evidence of bowel obstruction; patient is being followed by surgery and GI; patient reports that he discussed his care with Dr. Rodriguez yesterday and he anticipates feeling better tomorrow and will be able to go home tomorrow; patient requests all his pain medications to continue as currently ordered; we had detailed discussion about pain management and advised patient that he has to be tapered off of IV pain medications in preparation for discharge tomorrow; he then requests pain medications to continue as they are till tonight with tapered to started tonight when he will be sleeping and won't be able to feel the pain Patient does not appear to be any acute distress at this time; we will proceed to Dilaudid from every 3 to every 6 hours; patient recommended outpatient follow-up with pain management Objective - Vital Signs Vital signs: Vital Signs Temp 98 F 05/14/20 09:00 Pulse 71 05/14/20 09:00 Resp 18 05/14/20 09:00 BP 120/59 05/14/20 09:00 Pulse Ox 97 05/14/20 09:00 Intake & Output 05/13/20 05/14/20 05/14/20 18:59 06:59 18:59 Intake Total 340 480 600 Balance 340 480 600 Intake: Oral 240 480 600 Other 100 Other: Voiding Method Toilet # Voids 1 # Bowel Movements 1 - Exam General appearance: The patient is alert, oriented, in no acute distress. HET: Head is normocephalic and atraumatic. [place]. Sclerae anicteric. Neck: Supple without lymphadenopathy. Trachea midline. Abdomen: Soft, mild diffuse tenderness, nondistended with bowel sounds. No palpable organomegaly or masses. Extremities: Normal skin color and turgor. No pedal edema. Skin: No rashes Neurological: No focal deficits. Alert and oriented 3. - Labs CBC & Chem 7: 05/14/20 11:30 05/14/20 11:30 Labs: Abnormal Lab Results - Last 24 Hours (Table) 05/14/20 05/14/20 Range/Units 11:30 11:30 RBC 3.98 L (4.30-5.90) m/uL Hgb 9.8 L (13.0-17.5) gm/dL Hct 32.1 L (39.0-53.0) % MCH 24.5 L (25.0-35.0) pg MCHC 30.4 L (31.0-37.0) g/dL Lymphocytes # 0.7 L (1.0-4.8) k/uL Sodium 135 L (137-145) mmol/L Microbiology - Last 24 Hours (Table) 05/13/20 12:20 Stool Culture - Preliminary Stool Assessment and Plan Assessment: 1. Chronic lower abdominal pain with intermittent episodes nausea, vomiting, and diarrhea for last 2 years duration. The patient symptoms have been going on since her initial surgery about a year and apical. 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 He underwent reversal of his ileostomy a month ago at [facility]. Recent CAT scan of the abdomen done this admission did not show any evidence of bowel obstruction and patent colonic stent. Etiology of his abdominal pain remains unclear at this time. 2. History of rectal cancer, status post chemoradiation followed by low anterior resection a year ago at [facility]. 3. Normocytic anemia; stable at baseline 4. Gastroesophageal reflux disease. 5. History of hypertension Plan: 1. Trial of Bentyl 10 mg 4 times daily 2. Continue with high-fiber diet and fiber supplements as needed 3. If he continues to have persistent symptoms, may benefit from a flexible sigmoid endoscopy 4. Advance diet as tolerated
[2020-05-15] MEDS: KETOROLAC 15 MG/ML 1 ML VIAL IVP SCH ×3 (01:14→12:39)
[2020-05-15] MEDS: HYDROmorphone 1 MG/ML 1 ML SYRINGE IVP PRN ×3 (01:15→12:49)
[2020-05-15 03:08] VITALS: RESP 16
[2020-05-15] MEDS: SIMETHICONE 40 MG/0.6 ML DROPS 2,000 MG/30 ML BOTTLE PO PRN (05:38)
[2020-05-15] MEDS: HYDROcodone/APAP 10-325MG 1 EACH TAB PO PRN ×2 (08:23→14:01)
[2020-05-15] MEDS: TRIAMTERENE-HCTZ 37.5-25MG 1 EACH TAB PO SCH (08:52)
--- NOTE | 2020-05-15 10:22 | PN ---
PROGRESS NOTE DATE OF DICTATION: May 15, 2020 Patient is a 59-year-old pleasant white male admitted to the hospital with severe lower abdominal pain and persistent diarrhea with intermittent nausea, vomiting. He has history of rectal cancer status post radiation and chemo followed by surgery and recently underwent reversal of surgery a month ago. He has a colonic stent at the site of anastomotic stricture that was placed a year ago at [facility]. The patient was started on Bentyl 10 mg 4 times daily and his symptoms are slightly improved. He still has some nausea, vomiting. Still has abdominal pain. PHYSICAL EXAMINATION: Appears comfortable. VITAL SIGNS: Stable. Blood pressure 129/84, pulse rate 71, temperature 98.4. HEENT examination unremarkable. Conjunctivae pink. Sclerae anicteric. Oral cavity no lesions. Neck no JVD. No lymph node enlargement. Chest was clear to auscultation. HEART: Regular rate and rhythm. ABDOMEN: Soft. Bowel sounds are positive. Mild tenderness in the left lower quadrant and suprapubic area. Extremities: No pedal edema. NEUROLOGIC: Alert and oriented x3. No focal deficits. LABS: From today WBC 4.5, hemoglobin 9.8, platelets normal. Basic metabolic panel is within normal limits. IMPRESSION: 1. Persistent lower abdominal pain for the last 2 years duration. Symptoms started after his initial surgery for rectal cancer. He had multiple surgeries since then including colonic stent placement for anastomotic stricture done about a year ago. During this hospitalization, CT of the abdomen did not show any evidence of colonic obstruction. The patient was started on Bentyl 10 mg 4 times daily to be taken as needed and she is feeling better. 2. Nausea and vomiting, improving. 3. History of rectal cancer as described above. RECOMMENDATIONS: 1. Continue with pain medications as needed. 2. Bentyl as needed. 3. Advance diet as tolerated. 4. Increase ambulation. 5. He can be discharged home today and was advised to follow up with his [place] doctor in 1-2 weeks following discharge from the hospital. MMODL / IJN: [id number] /
[2020-05-15 14:07] VITALS: BP 117/58; PULSE 85; TEMP 98
== END 2020-05-15 15:10 | disposition home or self-care (01) | DRG 392 ==
LOC: EC 16:02 → 1SOBS 19:03 → OBSVTOIN 05-12 11:48
PROVIDERS: ADMIT Hospitalist; ATTEND Hospitalist
DX: R10.9 Unspecified abdominal pain (principal); Z68.42 Body mass index [BMI] 45.0-49.9, adult; F11.20 Opioid dependence, uncomplicated; R11.2 Nausea with vomiting, unspecified; R19.7 Diarrhea, unspecified; D17.5 Benign lipomatous neoplasm of intra-abdominal organs; D63.8 Anemia in other chronic diseases classified elsewhere; E66.01 Morbid (severe) obesity due to excess calories; G89.29 Other chronic pain; I10 Essential (primary) hypertension; M54.9 Dorsalgia, unspecified; K21.9 Gastro-esophageal reflux disease without esophagitis; Z80.0 Family history of malignant neoplasm of digestive organs; Z82.49 Family history of ischemic heart disease and other diseases of the circulatory system; Z83.3 Family history of diabetes mellitus; Z85.048 Personal history of other malignant neoplasm of rectum, rectosigmoid junction, and anus; Z87.891 Personal history of nicotine dependence; Z90.49 Acquired absence of other specified parts of digestive tract; Z20.828 Contact with and (suspected) exposure to other viral communicable diseases; Z92.21 Personal history of antineoplastic chemotherapy; Z92.3 Personal history of irradiation; Z90.89 Acquired absence of other organs; Z96.89 Presence of other specified functional implants; D50.9 Iron deficiency anemia, unspecified; M15.9 Polyosteoarthritis, unspecified; Z60.2 Problems related to living alone; G62.9 Polyneuropathy, unspecified
CPT/HCPCS: 36415; 71045; 74177; 80048; 80053; 80306; 81003; 82150; 83690; 85025; 85610; 85652; 85730; 86140; 87045; 87046; 87324; 96361; 96374; 96375; 96376; 99285

== ENCOUNTER 2020-05-27 13:51 | Inpatient (IN) | payer OTHER ==
[2020-05-27] MEDS ORDERED: SODIUM CHLORIDE 0.9% 1,000 ML IV STA (14:42)
[2020-05-27] MEDS ORDERED: ONDANSETRON 4 MG/2 ML VIAL IVP STA (14:42)
[2020-05-27] MEDS ORDERED: HYDROmorphone 0.5 MG/0.5 ML SYRINGE IVP STA ×3 (14:42→18:01)
--- NOTE | 2020-05-27 14:45 | ED ---
General Adult HPI - General Chief complaint: Abdominal Pain Stated complaint: Abdominal Pain Time Seen by Provider: 05/27/20 14:19 Source: patient, RN notes reviewed Mode of arrival: wheelchair Limitations: no limitations - History of Present Illness Initial comments: 59-year-old male with a past medical history of colon cancer with resection, GERD presents to the emergency room for a chief complaint of abdominal pain. Patient reports he has had significant lower abdominal pain for the past 3 days. States he has not been able to keep down fluids. Patient reports it is his whole abdomen. Patient denies diarrhea. Does admit to nausea vomiting. Denies melena or hematochezia. Patient has no other complaints at this time including shortness of breath, chest pain, headache, or visual changes. - Related Data Home Medications Medication Instructions Recorded Confirmed Triamterene/Hydrochlorothiazid 1 tab PO DAILY 10/08/19 05/27/20 [Triamterene-Hctz 37.5-25 mg Tb] Docusate [Colace] 100 mg PO DAILY PRN 12/14/19 05/27/20 Famotidine [Pepcid] 20 mg PO BID 05/11/20 05/27/20 Omeprazole [PriLOSEC] 20 mg PO BID-W/MEALS 05/11/20 05/27/20 Simethicone [Infants' Mylicon] 40 mg PO DAILY PRN 05/11/20 05/27/20 Ondansetron [Zofran ODT] 4 mg PO Q6H PRN 05/27/20 05/27/20 Previous Rx's Medication Instructions Recorded HYDROcodone/APAP 10-325MG [Maxwell 2 tab PO Q6H PRN #16 tab 12/26/19 10-325] Dicyclomine [Bentyl] 10 mg PO BID PRN #60 cap 05/14/20 Allergies Allergy/AdvReac Type Severity Reaction Status Date / Time No Known Allergies Allergy Verified 05/27/20 16:34 Review of Systems ROS Statement: Those systems with pertinent positive or pertinent negative responses have been documented in the HPI. ROS Other: All systems not noted in ROS Statement are negative. Past Medical History Past Medical History: Cancer, GERD/Reflux, Osteoarthritis (OA) Additional Past Medical History / Comment(s): Pt admitted to [facility] on 12/01/19 with a fall/struck R side abdomin/abdominal pain/vomiting/decrease ostomy function/incisional abdominal hernia. Other hx: Rectal cancer 2017 with colectomy/ileostomy then reversal/chemo pills and radiation, partial colonic obstruction-pt sent to [facility] and had diverting loop colostomy, chronic low back pain, arthritis in multiple joints, neuropathy bilateral feet/toes and R hand, iron deficiency anemia. History of Any Multi-Drug Resistant Organisms: None Reported Past Surgical History: Appendectomy, Bowel Resection, Orthopedic Surgery, Tonsillectomy Additional Past Surgical History / Comment(s): Colectomy/ileostomy with reversal, diverting loop colostomy, colonoscopies, L elbow bursa surgery, double hernia repair Past Anesthesia/Blood Transfusion Reactions: No Reported Reaction Past Psychological History: No Psychological Hx Reported Smoking Status: Former smoker Past Alcohol Use History: Rare Past Drug Use History: None Reported - Past Family History Mother Family Medical History: Cancer, Diabetes Mellitus Additional Family Medical History / Comment(s): from liver cancer Father Family Medical History: Myocardial Infarction ([place]) Additional Family Medical History / Comment(s): Pt has not spoken to his father in years and does not know much of his medical hx. General Exam Limitations: no limitations General appearance: alert, in no apparent distress Head exam: Present: atraumatic, normocephalic, normal inspection Eye exam: Present: normal appearance, PERRL, EOMI. Absent: scleral icterus, conjunctival injection, periorbital swelling ENT exam: Present: normal exam, mucous membranes moist Neck exam: Present: normal inspection, full ROM. Absent: tenderness, meningismus, lymphadenopathy Respiratory exam: Present: normal lung sounds bilaterally. Absent: respiratory distress, wheezes, rales, rhonchi, stridor Cardiovascular Exam: Present: regular rate, normal rhythm, normal heart sounds. Absent: systolic murmur, diastolic murmur, rubs, gallop, clicks GI/Abdominal exam: Present: soft, tenderness (Generalized abdominal tenderness.), normal bowel sounds. Absent: distended, guarding, rebound, rigid Neurological exam: Present: alert Course Vital Signs 05/27/20 05/27/20 05/27/20 14:07 15:34 16:02 Temperature 100.1 F H 1000 F H 100.0 F H Pulse Rate 118 H 112 H Respiratory 18 16 Rate Blood Pressure 114/78 145/91 O2 Sat by Pulse 97 98 Oximetry 05/27/20 16:48 Temperature 99.8 F H Pulse Rate 103 H Respiratory 14 Rate Blood Pressure 139/90 O2 Sat by Pulse 96 Oximetry Medical Decision Making - Medical Decision Making Patient presents with a low-grade fever here in the emergency room. CBC shows a normal white blood cell count. CMP does show evidence of dehydration with a BUN to creatinine ratio of 22. Urinalysis is unremarkable. CT abdomen and pelvis shows improving subcutaneous inflammatory change and a prior ostomy port. At this time origin of fever is unknown. Given patient's comp located history and current associated abdominal pain he will be admitted with the surgery consultation on board. - Lab Data Result diagrams: 05/27/20 15:26 05/27/20 15:26 Lab Results 05/27/20 05/27/20 05/27/20 Range/Units 15:26 15:26 15:26 WBC 9.5 (3.8-10.6) k/uL RBC 4.57 (4.30-5.90) m/uL Hgb 11.2 L (13.0-17.5) gm/dL Hct 35.6 L (39.0-53.0) % MCV 78.0 L (80.0-100.0) fL MCH 24.4 L (25.0-35.0) pg MCHC 31.3 (31.0-37.0) g/dL RDW 14.6 (11.5-15.5) % Plt Count 454 H D (150-450) k/uL Neutrophils % 80 % Lymphocytes % 10 % Monocytes % 9 % Eosinophils % 0 % Basophils % 0 % Neutrophils # 7.6 (1.3-7.7) k/uL Lymphocytes # 0.9 L (1.0-4.8) k/uL Monocytes # 0.9 (0-1.0) k/uL Eosinophils # 0.0 (0-0.7) k/uL Basophils # 0.0 (0-0.2) k/uL Hypochromasia Slight Sodium 135 L (137-145) mmol/L Potassium 4.0 (3.5-5.1) mmol/L Chloride 98 (98-107) mmol/L Carbon Dioxide 23 (22-30) mmol/L Anion Gap 14 mmol/L BUN 24 H (9-20) mg/dL Creatinine 1.07 (0.66-1.25) mg/dL Est GFR (CKD-EPI)AfAm 89 (>60 ml/min/1.73 sqM) Est GFR (CKD-EPI)NonAf 77 (>60 ml/min/1.73 sqM) Glucose 146 H (74-99) mg/dL Plasma Lactic Acid Gerry 2.1 H* (0.7-2.0) mmol/L Calcium 10.1 (8.4-10.2) mg/dL Total Bilirubin 0.9 (0.2-1.3) mg/dL AST 17 (17-59) U/L ALT 9 (4-49) U/L Alkaline Phosphatase 69 (38-126) U/L Total Protein 8.0 (6.3-8.2) g/dL Albumin 4.3 (3.5-5.0) g/dL Amylase 36 (30-110) U/L Lipase 20 L (23-300) U/L Urine Color Urine Appearance (Clear) Urine pH (5.0-8.0) Ur Specific [place] (1.001-1.035) Urine Protein (Negative) Urine Glucose (UA) (Negative) Urine Ketones (Negative) Urine Blood (Negative) Urine Nitrite (Negative) Urine Bilirubin (Negative) Urine Urobilinogen (<2.0) mg/dL Ur Leukocyte Esterase (Negative) 05/27/20 Range/Units 16:48 WBC (3.8-10.6) k/uL RBC (4.30-5.90) m/uL Hgb (13.0-17.5) gm/dL Hct (39.0-53.0) % MCV (80.0-100.0) fL MCH (25.0-35.0) pg MCHC (31.0-37.0) g/dL RDW (11.5-15.5) % Plt Count (150-450) k/uL Neutrophils % % Lymphocytes % % Monocytes % % Eosinophils % % Basophils % % Neutrophils # (1.3-7.7) k/uL Lymphocytes # (1.0-4.8) k/uL Monocytes # (0-1.0) k/uL Eosinophils # (0-0.7) k/uL Basophils # (0-0.2) k/uL Hypochromasia Sodium (137-145) mmol/L Potassium (3.5-5.1) mmol/L Chloride (98-107) mmol/L Carbon Dioxide (22-30) mmol/L Anion Gap mmol/L BUN (9-20) mg/dL Creatinine (0.66-1.25) mg/dL Est GFR (CKD-EPI)AfAm (>60 ml/min/1.73 sqM) Est GFR (CKD-EPI)NonAf (>60 ml/min/1.73 sqM) Glucose (74-99) mg/dL Plasma Lactic Acid Gerry (0.7-2.0) mmol/L Calcium (8.4-10.2) mg/dL Total Bilirubin (0.2-1.3) mg/dL AST (17-59) U/L ALT (4-49) U/L Alkaline Phosphatase (38-126) U/L Total Protein (6.3-8.2) g/dL Albumin (3.5-5.0) g/dL Amylase (30-110) U/L Lipase (23-300) U/L Urine Color Yellow Urine Appearance Clear (Clear) Urine pH 6.0 (5.0-8.0) Ur Specific [place] >1.050 H (1.001-1.035) Urine Protein Trace H (Negative) Urine Glucose (UA) Negative (Negative) Urine Ketones Negative (Negative) Urine Blood Negative (Negative) Urine Nitrite Negative (Negative) Urine Bilirubin Negative (Negative) Urine Urobilinogen 2.0 (<2.0) mg/dL Ur Leukocyte Esterase Negative (Negative) Disposition Clinical Impression: Abdominal pain, Fever Disposition: ADMITTED IP TO THIS HOSP Is patient prescribed a controlled substance at d/c from ED?: No Referrals: Josiah Connors DO [Primary Care Provider] - 1-2 days Time of Disposition: 18:03
[2020-05-27] MEDS ORDERED: ACETAMINOPHEN TAB 500 MG TAB PO STA (15:58)
[2020-05-27 16:22] LABS: Albumin 4.3 g/dL (3.5-5.0); Calcium 10.1 mg/dL (8.4-10.2); Total Bilirubin 0.9 mg/dL (0.2-1.3)
[2020-05-27 16:35] LABS: Basophils % (A) 0 %; Eosinophils % (A) 0 %; HCT 35.6 % (39.0-53.0); HGB 11.2 gm/dL (13.0-17.5); Hypochromasia Slight; Lymphocytes # (A) 0.9 k/uL (1.0-4.8); Lymphocytes % (A) 10 %; MCH 24.4 pg (25.0-35.0); MCHC 31.3 g/dL (31.0-37.0); Mean Platelet Volume 6.4; Monocytes # (A) 0.9 k/uL (0-1.0); Monocytes % (A) 9 %; Neutrophils # (A) 7.6 k/uL (1.3-7.7); Neutrophils % (A) 80 %; RBC 4.57 m/uL (4.30-5.90); RDW 14.6 % (11.5-15.5); WBC 9.5 k/uL (3.8-10.6)
[2020-05-27 16:39] LABS: Platelet Count 454 k/uL (150-450)
--- NOTE | 2020-05-27 16:41 | CT ---
EXAMINATION TYPE: CT abdomen pelvis w con DATE OF EXAM: 05/27/2020 COMPARISON: 05/11/2020 INDICATION: generalized abdominal pain DLP: 2549.2 mGycm, Automated exposure control for dose reduction was used. CONTRAST: 100 mL of Isovue 300. Study performed without Oral Contrast TECHNIQUE: Axial images were obtained from above the diaphragm to the pubic rami in the axial plane a t 5 mm thick sections. Reconstructed images are reviewed on the computer in the coronal plane. FINDINGS: Limited CT sections are obtained the lung bases. The lung bases are clear. CT ABDOMEN: Liver: Normal Spleen: Normal Pancreas: Mild atrophy with some mild fatty infiltration Adrenal glands: The adrenal glands are normal. Gallbladder: Normal Kidneys: No masses are evident. No hydronephrosis is present. No cysts are present. Delayed images were obtained through the kidneys, which remain unremarkable. Aorta: Vascular calcification is within the aorta. Inferior vena cava: Normal. CT PELVIS: There is improving inflammatory change in the talus tissues left lower quadrant. Recto sig moid stent is evident. Loops of bowel within the abdomen and pelvis are normal. There are loops of bowel which are incom pletely distended or lack oral contrast limiting their evaluation. Appendix: Not identified. No suspicious tubular structures or inflammatory changes are evident. Urinary bladder: Normal. Genitourinary structures: Prostate is normal Osseous structures: No suspicious lytic or sclerotic lesions. There are advanced degenerative changes at the right hip. Degenerative disc changes are at L5-S1. Some facet hypertrophy is present L5-S1 IMPRESSIONS: 1. Sigmoid stent remains in position. 2. Improving subcutaneous inflammatory change and a prior ostomy port
[2020-05-27 17:48] LABS: Appearance,Urine Clear (Clear); Bilirubin,Urine Negative (Negative); Blood,Urine Negative (Negative); Color,Urine Yellow; Glucose,Urine (UA) Negative (Negative); Ketones,Urine Negative (Negative); Leukocyte Esterase,Urine Negative (Negative); Nitrite,Urine Negative (Negative); Protein,Urine Trace (Negative)
[2020-05-27 17:49] LABS: Specific Gravity,Urine >1.050 (1.001-1.035)
[2020-05-27] MEDS ORDERED: NALOXONE 0.4 MG/ML 1 ML VIAL IV PRN (17:59)
[2020-05-27] MEDS ORDERED: HYDROmorphone 0.5 MG/0.5 ML SYRINGE IVP PRN (17:59)
[2020-05-27] MEDS: SODIUM CHLORIDE 0.9% 1,000 ML IV SCH (20:57)
[2020-05-27] MEDS: HYDROcodone/APAP 5-325MG 1 EACH TAB PO PRN (22:16)
[2020-05-27] MEDS ORDERED: DICYCLOMINE 10 MG CAP PO PRN (22:58)
[2020-05-27] MEDS ORDERED: DOCUSATE 100 MG CAP PO PRN (22:58)
[2020-05-27] MEDS: HYDROmorphone 0.5 MG/0.5 ML SYRINGE IVP PRN (23:42)
[2020-05-28] MEDS: HYDROmorphone 0.5 MG/0.5 ML SYRINGE IVP PRN ×11 (01:43→22:00)
[2020-05-28] MEDS: ONDANSETRON 4 MG/2 ML VIAL IVP PRN ×3 (02:11→18:06)
--- NOTE | 2020-05-28 03:01 | HP ---
HISTORY AND PHYSICAL CHIEF COMPLAINT: Abdominal pain. HISTORY OF PRESENT ILLNESS: This 59-year-old gentleman with a past medical history of colon cancer, GERD, history of sigmoid stent, history of appendectomy, history of bowel resection being followed by Dr. Connors and Dr. Lawson in the outpatient setting had multiple admissions for abdominal pain. The patient was complaining of abdominal pain in the lower part of the abdomen. The patient for the last 3 days the patient is unable to keep down fluids and the pain is radiating to the whole abdomen. There is no history of hematochezia or melena. Patient called Dr. Lawson's office and directed to [facility] for further evaluation and treatment. A CAT scan of the abdomen showed sigmoid stent remains in position, improving subcutaneous inflammatory changes and a prior ostomy port was also noted. There is no history of fever, rigors, chills at this time. PAST MEDICAL HISTORY: History of GERD, DJD, history of appendectomy, history of bowel resection, sigmoid stent. MEDICATIONS: Medications are: 1. Zofran. 2. Triamterene. 3. Simethicone. 4. Omeprazole. 5. Hydrocodone. 6. Pepcid. 7. Colace. 8. Bentyl. ALLERGIES: None. FAMILY HISTORY: History of cancer, diabetes mellitus in the family, liver cancer. SOCIAL HISTORY: Previous history of smoking. No history of current smoking or alcohol intake. REVIEW OF SYSTEMS: ENT: No diminished hearing or diminished vision. CARDIOVASCULAR SYSTEM: No angina. RESPIRATORY SYSTEM: No cough. GI: No nausea. : No dysuria. NERVOUS SYSTEM: No numbness or weakness. ALLERGY/IMMUNOLOGY: No asthma. MUSCULOSKELETAL: As mentioned earlier. HEMATOLOGY/ONCOLOGY: No history of anemia. ENDOCRINE: No history of diabetes or hypothyroidism. CONSTITUTIONAL: As mentioned earlier. DERMATOLOGY: Negative. RHEUMATOLOGY: Negative. PSYCHIATRY: As mentioned earlier. PHYSICAL EXAMINATION: The patient is alert and oriented x3. Pulse is 92, blood pressure 132/83, respiration 14, temperature 100 degrees, pulse ox 98% on room air. HEENT: Conjunctivae normal. NECK: No jugular venous distention. CARDIOVASCULAR: S1, S2 muffled. RESPIRATORY: Breath sounds diminished at the bases. No rhonchi, no crackles. ABDOMEN: Soft. Mild diffuse tenderness present. Abdomen is obese. No guarding or rigidity. No mass palpable. LEGS: No edema. No swelling. NERVOUS SYSTEM: No focal deficits. LABS: WBC 9.5, hemoglobin 11.2. Sodium is 135. Lactic acid 2.1. ASSESSMENT: 1. Diffuse abdominal pain, rule out acute diverticulitis or ischemic bowel. 2. Fever. 3. Chronic abdominal pain. 4. Hyponatremia. 5. Elevated lactic acid. 6. Anemia, microcytic. 7. Increased platelets. 8. Gastroesophageal reflux disease. 9. Degenerative joint disease. 10.History of colon cancer and surgery, bowel resection. 11.History of colectomy, ileostomy, which was reversed. 12.History of sigmoid stent. 13.History of bowel resection. 14.Obesity with body mass of 45.2. 15.FULL CODE. RECOMMENDATIONS AND DISCUSSION: This 59-year-old gentleman presented with multiple complex medical issues, we will monitor the patient closely. Continue the current medications. Continue symptomatic treatment. At this time I will obtain cultures and use empiric antibiotic treatment, symptomatic treatment. Otherwise, closely follow with Dr. Lawson. Guarded prognosis because of multiple complex medical issues. Resume home medications. Further recommendations to follow. I discussed with the patient. A copy of dictation forwarded to Dr. Connors. MMLYLA / MELISSAN: [id number] /
[2020-05-28] MEDS: HYDROcodone/APAP 5-325MG 1 EACH TAB PO PRN ×4 (03:46→21:59)
[2020-05-28] MEDS: TRIAMTERENE-HCTZ 37.5-25MG 1 EACH TAB PO SCH (07:47)
[2020-05-28] MEDS: FAMOTIDINE 20 MG TAB PO SCH ×2 (07:47→19:57)
[2020-05-28] MEDS ORDERED: SIMETHICONE 40 MG/0.6 ML DROPS 2,000 MG/30 ML BOTTLE PO PRN (09:00)
[2020-05-28] MEDS: SODIUM CHLORIDE 0.9% 1,000 ML IV SCH ×3 (09:58→19:58)
--- NOTE | 2020-05-28 11:49 | P.GSCN ---
<Korin Rasmussen - Last Filed: 05/28/20 11:37> History of Present Illness Consult date: 05/28/20 History of present illness: CHIEF COMPLAINT: Abdominal pain with vomiting and diarrhea x 3 days HISTORY OF PRESENT ILLNESS: This is a 59-year-old male with a known history of rectal cancer with lower anterior resection with chemo and radiation treatment. He developed stricture at the anastomotic site and developed hernia at his temporary ileostomy site. Stricture was treated with a stent which is still retained. Unfortunately the stent lead to partial obstruction at the anastomosis. The patient then required diverting loop colostomy at [facility]. Patient had colostomy reversed in February at [place]. Patient was recently hospitalized and [facility] in April with abdominal pain nausea, vomiting and diarrhea. He returns again with diffuse abdominal pain with nausea, vomiting and diarrhea for 3 days. Patient also has been having low-grade temperatures of 100.1. Patient denies any sick contacts or any recent traveling. He reports that his emesis is mostly bile or food products. His last episode of emesis was yesterday. He's had multiple episodes of diarrhea. He does report a few streaks of blood in both the emesis and stools. Patient had computed tomography scan of the abdomen and pelvis showing sigmoid stent remains in position. Improving subcutaneous inflammatory change and a prior ostomy port. White count normal at 9.5 lactic was 2.1 and now normalized. PAST MEDICAL HISTORY: See list. PAST SURGICAL HISTORY: See list. MEDICATIONS: See list. ALLERGIES: See list. SOCIAL HISTORY: No illicit drug use. REVIEW OF SYSTEMS: CONSTITUTIONAL: Denies fever or chills. HEENT: Denies blurred vision, vision changes, or eye pain. Denies hemoptysis CARDIOVASCULAR: Denies chest pain or pressure. RESPIRATORY: No shortness of breath. GASTROINTESTINAL: See HPI for pertinent findings HEMATOLOGIC: Denies bleeding disorders. GENITOURINARY: Denies any blood in urine or increased urinary frequency. SKIN: Denies pruitis. Denies rash. PHYSICAL EXAM: VITAL SIGNS: Reviewed GENERAL: Well-developed in no acute distress. HEENT: No sclera icterus. Extraocular movements grossly intact. Moist buccal mucosa. Head is atraumatic, normocephalic. No nasal drainage. ABDOMEN: Soft. Obese. Nondistended. Diffuse abdominal tenderness NEUROLOGIC: Alert and oriented. Cranial nerves II through XII grossly intact. LABORATORY DATA: WBC 9.5 hemoglobin 11.2 platelets are 454 sodium 135 potassium 4.0 BUN 24 creatinine 1.07 lactic 2.1 down to 0.8 AST 17 ALT 9 lipase 20 UA negative IMAGING: Computed tomography scan of abdomen and pelvis showing sigmoid stent remains in position and improving subcutaneous inflammatory change and a prior ostomy port ASSESSMENT: 1. Abdominal pain with nausea, vomiting and diarrhea. Computed tomography scan showed no evidence of obstruction. Did reveal improving subcutaneous inflammatory change. 2. Morbid obesity 3. History of rectal cancer status post low anterior resection with chemo and radiation treatments 4. History of bowel obstruction with diverting loop colostomy. Status post reversal of colostomy in February at [facility] PLAN: -Recommend consult during infectious disease regarding fever -Start patient on a clear liquid diet -No plans for surgical intervention Physician [employer] Technician note has been reviewed by physician. Signing provider agrees with the documented findings, assessment, and plan of care. Past Medical History Past Medical History: Cancer, GERD/Reflux, Osteoarthritis (OA) Additional Past Medical History / Comment(s): Pt admitted to [facility] on 12/01/19 with a fall/struck R side abdomin/abdominal pain/vomiting/decrease ostomy function/incisional abdominal hernia. Other hx: Rectal cancer 2017 with c olectomy/ileostomy then reversal/chemo pills and radiation, partial colonic obstruction-pt sent to [place] and had diverting loop colostomy, chronic low back pain, arthritis in multiple joints, neuropathy bilateral feet/toes and R hand, iron deficiency anemia. History of Any Multi-Drug Resistant Organisms: None Reported Past Surgical History: Appendectomy, Bowel Resection, Orthopedic Surgery, Tonsillectomy Additional Past Surgical History / Comment(s): Colectomy/ileostomy with reversal, diverting loop colostomy, colonoscopies, L elbow bursa surgery, double hernia repair Past Anesthesia/Blood Transfusion Reactions: No Reported Reaction Past Psychological History: No Psychological Hx Reported Additional Psychological History / Comment(s): Pt resides in an apartment alone. Pt has a cane which he uses prn. He drives. Smoking Status: Former smoker Past Alcohol Use History: Rare Additional Past Alcohol Use History / Comment(s): Pt started smoking as a teen and quit in 1998. Past Drug Use History: None Reported - Past Family History Mother Family Medical History: Cancer, Diabetes Mellitus Additional Family Medical History / Comment(s): from liver cancer Father Family Medical History: Myocardial Infarction ([place]) Additional Family Medical History / Comment(s): Pt has not spoken to his father in years and does not know much of his medical hx. Medications and Allergies Home Medications Medication Instructions Recorded Confirmed Type Triamterene/Hydrochlorothiazid 1 tab PO DAILY 10/08/19 05/27/20 History [Triamterene-Hctz 37.5-25 mg Tb] Docusate [Colace] 100 mg PO DAILY PRN 12/14/19 05/27/20 History HYDROcodone/APAP 10-325MG [[place] 2 tab PO Q6H PRN #16 tab 12/26/19 05/27/20 Rx 10-325] Famotidine [Pepcid] 20 mg PO BID 05/11/20 05/27/20 History Omeprazole [PriLOSEC] 20 mg PO BID-W/MEALS 05/11/20 05/27/20 History Simethicone [Infants' Mylicon] 40 mg PO DAILY PRN 05/11/20 05/27/20 History Dicyclomine [Bentyl] 10 mg PO BID PRN #60 cap 05/14/20 05/27/20 Rx Ondansetron [Zofran ODT] 4 mg PO Q6H PRN 05/27/20 05/27/20 History Allergies Allergy/AdvReac Type Severity Reaction Status Date / Time No Known Allergies Allergy Verified 05/27/20 16:34 Surgical - Exam Vital Signs Temp Pulse Resp BP Pulse Ox 100.1 F H 118 H 18 114/78 97 05/27/20 14:07 05/27/20 14:07 05/27/20 14:07 05/27/20 14:07 05/27/20 14:07 Results - Labs 05/27/20 15:26 05/27/20 15:26 Abnormal Lab Results - Last 24 Hours (Table) 05/27/20 05/27/20 05/27/20 Range/Units 15:26 15:26 15:26 Hgb 11.2 L (13.0-17.5) gm/dL Hct 35.6 L (39.0-53.0) % MCV 78.0 L (80.0-100.0) fL MCH 24.4 L (25.0-35.0) pg Plt Count 454 H D (150-450) k/uL Lymphocytes # 0.9 L (1.0-4.8) k/uL Sodium 135 L (137-145) mmol/L BUN 24 H (9-20) mg/dL Glucose 146 H (74-99) mg/dL Plasma Lactic Acid Gerry 2.1 H* (0.7-2.0) mmol/L Lipase 20 L (23-300) U/L Ur Specific [place] (1.001-1.035) Urine Protein (Negative) 05/27/20 Range/Units 16:48 Hgb (13.0-17.5) gm/dL Hct (39.0-53.0) % MCV (80.0-100.0) fL MCH (25.0-35.0) pg Plt Count (150-450) k/uL Lymphocytes # (1.0-4.8) k/uL Sodium (137-145) mmol/L BUN (9-20) mg/dL Glucose (74-99) mg/dL Plasma Lactic Acid Gerry (0.7-2.0) mmol/L Lipase (23-300) U/L Ur Specific [place] >1.050 H (1.001-1.035) Urine Protein Trace H (Negative) Diabetes panel 05/27/20 Range/Units 15:26 Sodium 135 L (137-145) mmol/L Potassium 4.0 (3.5-5.1) mmol/L Chloride 98 (98-107) mmol/L Carbon Dioxide 23 (22-30) mmol/L BUN 24 H (9-20) mg/dL Creatinine 1.07 (0.66-1.25) mg/dL Glucose 146 H (74-99) mg/dL Calcium 10.1 (8.4-10.2) mg/dL AST 17 (17-59) U/L ALT 9 (4-49) U/L Alkaline Phosphatase 69 (38-126) U/L Total Protein 8.0 (6.3-8.2) g/dL Albumin 4.3 (3.5-5.0) g/dL Calcium panel 05/27/20 Range/Units 15:26 Calcium 10.1 (8.4-10.2) mg/dL Albumin 4.3 (3.5-5.0) g/dL Pituitary panel 05/27/20 Range/Units 15:26 Sodium 135 L (137-145) mmol/L Potassium 4.0 (3.5-5.1) mmol/L Chloride 98 (98-107) mmol/L Carbon Dioxide 23 (22-30) mmol/L BUN 24 H (9-20) mg/dL Creatinine 1.07 (0.66-1.25) mg/dL Glucose 146 H (74-99) mg/dL Calcium 10.1 (8.4-10.2) mg/dL Adrenal panel 05/27/20 Range/Units 15:26 Sodium 135 L (137-145) mmol/L Potassium 4.0 (3.5-5.1) mmol/L Chloride 98 (98-107) mmol/L Carbon Dioxide 23 (22-30) mmol/L BUN 24 H (9-20) mg/dL Creatinine 1.07 (0.66-1.25) mg/dL Glucose 146 H (74-99) mg/dL Calcium 10.1 (8.4-10.2) mg/dL Total Bilirubin 0.9 (0.2-1.3) mg/dL AST 17 (17-59) U/L ALT 9 (4-49) U/L Alkaline Phosphatase 69 (38-126) U/L Total Protein 8.0 (6.3-8.2) g/dL Albumin 4.3 (3.5-5.0) g/dL <Dru Lawson - Last Filed: 05/28/20 14:07> History of Present Illness History of present illness: As above. Patient well known to our service. Patient presents with recurrent pain and fevers. Has been tolerating diet. Has been having bowel function. CAT scan reviewed. Patient with continuous inflammatory changes around the stent in the pelvis. This could be the source of recent fevers. Consider infectious disease consult. No surgical intervention planned at this time. Surgical - Exam Vital Signs Temp Pulse Resp BP Pulse Ox 100.1 F H 118 H 18 114/78 97 05/27/20 14:07 05/27/20 14:07 05/27/20 14:07 05/27/20 14:07 05/27/20 14:07 Results - Labs 05/27/20 15:26 05/27/20 15:26 Abnormal Lab Results - Last 24 Hours (Table) 05/27/20 05/27/20 05/27/20 Range/Units 15:26 15:26 15:26 Hgb 11.2 L (13.0-17.5) gm/dL Hct 35.6 L (39.0-53.0) % MCV 78.0 L (80.0-100.0) fL MCH 24.4 L (25.0-35.0) pg Plt Count 454 H D (150-450) k/uL Lymphocytes # 0.9 L (1.0-4.8) k/uL Sodium 135 L (137-145) mmol/L BUN 24 H (9-20) mg/dL Glucose 146 H (74-99) mg/dL Plasma Lactic Acid Gerry 2.1 H* (0.7-2.0) mmol/L Lipase 20 L (23-300) U/L Ur Specific [place] (1.001-1.035) Urine Protein (Negative) 05/27/20 Range/Units 16:48 Hgb (13.0-17.5) gm/dL Hct (39.0-53.0) % MCV (80.0-100.0) fL MCH (25.0-35.0) pg Plt Count (150-450) k/uL Lymphocytes # (1.0-4.8) k/uL Sodium (137-145) mmol/L BUN (9-20) mg/dL Glucose (74-99) mg/dL Plasma Lactic Acid Gerry (0.7-2.0) mmol/L Lipase (23-300) U/L Ur Specific [place] >1.050 H (1.001-1.035) Urine Protein Trace H (Negative) Diabetes panel 05/27/20 Range/Units 15:26 Sodium 135 L (137-145) mmol/L Potassium 4.0 (3.5-5.1) mmol/L Chloride 98 (98-107) mmol/L Carbon Dioxide 23 (22-30) mmol/L BUN 24 H (9-20) mg/dL Creatinine 1.07 (0.66-1.25) mg/dL Glucose 146 H (74-99) mg/dL Calcium 10.1 (8.4-10.2) mg/dL AST 17 (17-59) U/L ALT 9 (4-49) U/L Alkaline Phosphatase 69 (38-126) U/L Total Protein 8.0 (6.3-8.2) g/dL Albumin 4.3 (3.5-5.0) g/dL Calcium panel 05/27/20 Range/Units 15:26 Calcium 10.1 (8.4-10.2) mg/dL Albumin 4.3 (3.5-5.0) g/dL Pituitary panel 05/27/20 Range/Units 15:26 Sodium 135 L (137-145) mmol/L Potassium 4.0 (3.5-5.1) mmol/L Chloride 98 (98-107) mmol/L Carbon Dioxide 23 (22-30) mmol/L BUN 24 H (9-20) mg/dL Creatinine 1.07 (0.66-1.25) mg/dL Glucose 146 H (74-99) mg/dL Calcium 10.1 (8.4-10.2) mg/dL Adrenal panel 05/27/20 Range/Units 15:26 Sodium 135 L (137-145) mmol/L Potassium 4.0 (3.5-5.1) mmol/L Chloride 98 (98-107) mmol/L Carbon Dioxide 23 (22-30) mmol/L BUN 24 H (9-20) mg/dL Creatinine 1.07 (0.66-1.25) mg/dL Glucose 146 H (74-99) mg/dL Calcium 10.1 (8.4-10.2) mg/dL Total Bilirubin 0.9 (0.2-1.3) mg/dL AST 17 (17-59) U/L ALT 9 (4-49) U/L Alkaline Phosphatase 69 (38-126) U/L Total Protein 8.0 (6.3-8.2) g/dL Albumin 4.3 (3.5-5.0) g/dL
[2020-05-28] MEDS: PIPERACILLIN-TAZOBACTAM 3.375 GM in SODIUM CHLORIDE 0.9% 100 ML IVPB SCH ×2 (11:55→19:57)
[2020-05-28] MEDS: LOPERAMIDE 2 MG CAP PO PRN (16:08)
[2020-05-28 17:29] LABS: INR 1.1 (<1.2); Prothrombin Time 11.4 sec (9.0-12.0)
--- NOTE | 2020-05-28 18:29 | PN ---
PROGRESS NOTE DATE OF SERVICE: 05/28/2020 This 59 -year-old gentleman with past medical history of multiple medical problems admitted with abdominal pain. The patient had colostomy and ileostomy with reversal also. Patient had surgery. Dr. Lawson is following the patient closely. The patient is started on empiric antibiotics for possibly diverticulitis also. Past medical history reviewed. REVIEW OF SYSTEMS: Cardiovascular system: No angina. RESPIRATORY: As mentioned earlier. GI: As mentioned earlier. : No dysuria. NERVOUS SYSTEM: No numbness or weakness. CURRENT MEDICATIONS: Reviewed and include: Nov[place], Bentyl, Colace, Pepcid, Dilaudid, Imodium, Narcan, Zofran and Zosyn, Maxzide. PHYSICAL EXAM: Patient is alert, oriented x3. Pulse 72, blood pressure 120/70, respiration 20, temp 98.4. Pulse ox 98% on room air. HEENT: Conjunctivae normal. NECK: No JVD. CARDIOVASCULAR SYSTEM: S1, S2 muffled. RESPIRATORY SYSTEM: Breath sounds diminished at the bases. A few rhonchi. No crackles. ABDOMEN: Soft, obese, mild diffuse tenderness especially lower part. LEGS are no edema. No swelling. NERVOUS SYSTEM: No focal deficits. LABS: WBC 9.3, hemoglobin 11.2, sodium 135, C difficile negative. ASSESSMENT: 1. Diffuse lower abdominal pain, rule out acute diverticulitis, rule out ischemic bowel. 2. Fever. 3. Chronic abdominal pain. 4. Hyponatremia. 5. Elevated lactic acid. 6. Anemia, microcytic. 7. Increased platelets. 8. Gastroesophageal reflux disease. 9. Degenerative joint disease. 10.History of colon cancer surgery, bowel resection. 11.Colectomy, colostomy and ileostomy which was reversed. 12.History of sigmoid stent. 13.History of bowel resection. 14.Obesity with body mass index of 45.9. 15.FULL CODE. RECOMMENDATIONS AND DISCUSSION: Recommend to continue current medications, symptomatic treatment and continue with antibiotics. Surgical impression appreciated. Guarded prognosis. We will order sed rate and ERCP also. Further recommendations to follow. DVT prophylaxis. Proton pump inhibitors. MMODL / IJN: [id number] /
[2020-05-29] MEDS: HYDROmorphone 0.5 MG/0.5 ML SYRINGE IVP PRN ×12 (00:05→22:57)
[2020-05-29] MEDS: HYDROcodone/APAP 5-325MG 1 EACH TAB PO PRN ×4 (04:27→22:57)
[2020-05-29] MEDS: PIPERACILLIN-TAZOBACTAM 3.375 GM in SODIUM CHLORIDE 0.9% 100 ML IVPB SCH ×3 (04:28→20:54)
[2020-05-29 05:31] LABS: Basophils % (A) 0 %; Eosinophils # (A) 0.1 k/uL (0-0.7); Eosinophils % (A) 2 %; HCT 29.1 % (39.0-53.0); Hypochromasia Marked; Lymphocytes # (A) 0.7 k/uL (1.0-4.8); Lymphocytes % (A) 17 %; MCH 24.6 pg (25.0-35.0); MCHC 30.6 g/dL (31.0-37.0); MCV 80.4 fL (80.0-100.0); Mean Platelet Volume 6.8; Monocytes # (A) 0.4 k/uL (0-1.0); Monocytes % (A) 9 %; Neutrophils % (A) 71 %; Platelet Count 259 k/uL (150-450); RBC 3.62 m/uL (4.30-5.90); RDW 14.6 % (11.5-15.5); WBC 4.2 k/uL (3.8-10.6)
[2020-05-29 05:34] LABS: HGB 8.9 gm/dL (13.0-17.5)
[2020-05-29] MEDS: ONDANSETRON 4 MG/2 ML VIAL IVP PRN (06:30)
[2020-05-29] MEDS: FAMOTIDINE 20 MG TAB PO SCH ×2 (08:42→20:55)
[2020-05-29] MEDS: TRIAMTERENE-HCTZ 37.5-25MG 1 EACH TAB PO SCH (08:43)
[2020-05-29] MEDS: LOPERAMIDE 2 MG CAP PO PRN (08:51)
[2020-05-29 09:12] LABS: African American GFR (CKD) 109.5 (60.0-200.0); Anion Gap 7.4 mmol/L (4.00-12.00); BUN/Creat Ratio 16.67 Ratio (12.00-20.00); Calcium 8.6 mg/dL (8.7-10.3); Carbon Dioxide 27.6 mmol/L (21.6-31.8); Non-African American GFR(CKD) 94.5 (60.0-200.0); Potassium 3.6 mmol/L (3.5-5.5)
--- NOTE | 2020-05-29 09:45 | P.PN ---
Progress Note - Text Progress Note Date: 05/29/20 The patient resting comfortably in his bed. He is requesting pain medication. On exam vital signs are stable. Abdomen is soft. There is some tenderness in the lower quadrants. History of rectal cancer with chronic abdominal pain. No surgical intervention is planned. Patient denies by the medical service.
[2020-05-29] MEDS: SODIUM CHLORIDE 0.9% 1,000 ML IV SCH ×2 (14:48→20:58)
--- NOTE | 2020-05-29 17:37 | PN ---
PROGRESS NOTE DATE OF SERVICE: 05/29/2020 This 59-year-old gentleman who was admitted with diffuse abdominal pain is being closely monitored. The patient evaluated for colitis. No chest pain. No palpitations. No fever. PHYSICAL EXAMINATION: Alert and oriented times three. Pulse 65, blood pressure 133/78, respiration 18. Temperature 97.8, pulse ox 97% on room air. HEENT: Conjunctivae normal. NECK: No JVD. CARDIOVASCULAR: S1, S2 muffled. RESPIRATORY SYSTEM: Breath sounds diminished at the bases. No rhonchi. No crackles. ABDOMEN: Soft. Mild diffuse tenderness present. LEGS are no edema. No swelling. NERVOUS SYSTEM: No focal deficits. LABS: Hemoglobin 8.9. ESR is 99. C-reactive protein 61.6. Abdominal and pelvis CT scan showed sigmoid stent inversion improving subcutaneous inflammatory changes. ASSESSMENT: 1. Diffuse lower abdominal pain, possibly diverticulitis, rule out ischemic bowel or colitis. 2. Continued fever. 3. Chronic abdominal pain. 4. Hyponatremia. 5. Inflammatory changes around the previous ostomy sites subcutaneously. 6. Elevated lactic acid. 7. Anemia microcytic. 8. Increased platelets. 9. Gastroesophageal reflux disease. 10.Degenerative joint disease. 11.History of colon cancer surgery with resection. 12.Colectomy, colostomy, ileostomy which was reversed. 13.History of sigmoid stent. 14.History of bowel resection. 15.Obesity with body mass index of 45.9. 16.FULL CODE. RECOMMENDATIONS AND DISCUSSION: I recommend to continue current medications, continue to monitor. Symptomatic treatment. Otherwise, at this time, I would recommend continue the current antibiotics. Closely follow with surgery. I would also obtain a gastroenterology consultation as well. Further recommendations to follow. MMODL / IJN: [id number] /
[2020-05-30] MEDS: HYDROmorphone 0.5 MG/0.5 ML SYRINGE IVP PRN ×10 (01:01→21:58)
[2020-05-30] MEDS: PIPERACILLIN-TAZOBACTAM 3.375 GM in SODIUM CHLORIDE 0.9% 100 ML IVPB SCH ×3 (03:11→20:03)
[2020-05-30] MEDS: HYDROcodone/APAP 5-325MG 1 EACH TAB PO PRN ×4 (05:13→23:26)
[2020-05-30 05:26] LABS: Basophils % (A) 0 %; Eosinophils # (A) 0.1 k/uL (0-0.7); Eosinophils % (A) 3 %; HCT 29.3 % (39.0-53.0); HGB 9.2 gm/dL (13.0-17.5); Hypochromasia Moderate; Lymphocytes # (A) 0.9 k/uL (1.0-4.8); Lymphocytes % (A) 18 %; MCH 25.1 pg (25.0-35.0); MCHC 31.3 g/dL (31.0-37.0); MCV 80.4 fL (80.0-100.0); Mean Platelet Volume 6.1; Monocytes # (A) 0.5 k/uL (0-1.0); Monocytes % (A) 10 %; Neutrophils # (A) 3.2 k/uL (1.3-7.7); Neutrophils % (A) 68 %; Platelet Count 268 k/uL (150-450); RBC 3.64 m/uL (4.30-5.90); RDW 14.7 % (11.5-15.5); WBC 4.7 k/uL (3.8-10.6)
[2020-05-30] MEDS: SODIUM CHLORIDE 0.9% 1,000 ML IV SCH ×2 (06:20→15:17)
[2020-05-30] MEDS: TRIAMTERENE-HCTZ 37.5-25MG 1 EACH TAB PO SCH (08:09)
[2020-05-30] MEDS: FAMOTIDINE 20 MG TAB PO SCH ×2 (08:09→20:00)
--- NOTE | 2020-05-30 09:49 | P.PN ---
Progress Note - Text Progress Note Date: 05/30/20 The patient still complaining of intense abdominal pain. He is also asking for more to eat. On exam her lesser stable. Abdomen soft. Metastatic colon cancer. Chronic abdominal pain. Patient will have his diet advanced.
[2020-05-30] MEDS: DICYCLOMINE 10 MG CAP PO SCH ×3 (11:27→21:58)
[2020-05-30 11:33] LABS: African American GFR (CKD) 109.5 (60.0-200.0); Anion Gap 8.9 mmol/L (4.00-12.00); Calcium 8.7 mg/dL (8.7-10.3); Carbon Dioxide 26.1 mmol/L (21.6-31.8); Non-African American GFR(CKD) 94.5 (60.0-200.0); Potassium 3.8 mmol/L (3.5-5.5)
[2020-05-30] MEDS: methylPREDNISolone SOD SUCCI 125 MG/2 ML VIAL IV SCH ×3 (12:44→23:27)
--- NOTE | 2020-05-30 13:42 | CONS ---
CONSULTATION DATE OF DICTATION: May 30, 2020. REASON FOR CONSULTATION: Abdominal pain, nausea, vomiting, and diarrhea. HISTORY OF PRESENT ILLNESS: The patient is a 59-year-old white male who was diagnosed with rectal cancer in July of 2019 and subsequently underwent chemoradiation followed by a low anterior resection at [facility]. Subsequently he developed anastomotic stricture for which he underwent a stent placement. Around the same time, he had a temporary ileostomy and that was subsequently reversed. For the last 2 years, he has been having continuous chronic lower abdominal pain associated with nausea, vomiting, diarrhea requiring multiple hospitalizations. He follows with Dr. Lawson on an outpatient basis. At one point, he had a flexible sigmoidoscopy by Dr. Lawson the early part of this year that showed obstruction of the stent from tumor growth. Subsequently, he was seen at [facility]. The patient cannot give all complete details. He was just discharged from the hospital 2 weeks ago at which time he was admitted with the same symptoms. Now he presents with lower abdominal cramping pain, nausea, vomiting, bowel movements anywhere from 10-12 a day which are loose to watery in consistency. No blood or mucus in the stool. He denies any fever, chills, night sweats. He did have a CT of the abdomen and pelvis done 3 days ago that showed sigmoid stent in place, improving subcutaneous inflammatory changes at the prior ostomy site. PAST MEDICAL HISTORY: Significant for rectal cancer diagnosed in July of 2018, history of degenerative joint disease, hypertension, hyperlipidemia, gastroesophageal reflux disease. MEDICATIONS: At home, Zofran, Triamterene, hydrochlorothiazide, simethicone, omeprazole, hydrocodone, Pepcid, Colace, Bentyl. ALLERGIES: None. SOCIAL HISTORY: No smoking. No alcohol use. FAMILY HISTORY: Dad has diabetes mellitus. REVIEW OF SYSTEMS: CARDIOPULMONARY: No chest pain or shortness of breath. : No dysuria or hematuria. MUSCULOSKELETAL unremarkable other than chronic back pain. NEUROLOGY unremarkable. PSYCHIATRIC unremarkable. ENT/VISION: Unremarkable. CONSTITUTIONAL: No recent weight loss. No fever, chills, or night sweats. GI as mentioned above. HEMATOLOGY as mentioned above. ONCOLOGY as mentioned above. PHYSICAL EXAMINATION: He appears comfortable. No apparent distress. Vital signs stable blood pressure is 133/75, pulse rate 65, temperature 97.8. HEENT examination unremarkable. Conjunctivae pink. Sclerae anicteric. Oral cavity no lesions. NECK no JVD or lymph node enlargement. CHEST was clear to auscultation. HEART: Regular rate and rhythm. ABDOMEN: Obese. Bowel sounds are positive. No organomegaly. EXTREMITIES: No pedal edema. SKIN no rashes. NEUROLOGIC: Alert and oriented x3. No focal deficits. LABS: WBC 4.7, hemoglobin 9.2, platelets normal. Basic metabolic panel is within normal limits. C-difficile toxin is negative. CRP is 61.6. IMPRESSION: 1. Chronic lower abdominal pain associated with nausea, vomiting, and diarrhea of unclear etiology. Patient has been having these symptoms for the last 2 years since his surgery with low anterior resection at [facility] sometime in early part of 2019. 2. Stenosis of the anastomosis, status post stent placement at [facility] a year ago. Recent CT scan of the abdomen did not show any colonic obstruction and stent was in place. 3. History of rectal cancer diagnosed in July of 2018, status post chemo radiation followed by surgery. RECOMMENDATIONS: 1. Start on Bentyl 10 mg 4 times daily. 2. Continue with symptomatic and supportive care. 3. Advance diet as tolerated. 4. Pain medications as needed. 5. We will follow with you closely. Thank you for this consultation. MMODL / IJN: [id number] /
[2020-05-30] MEDS: LOPERAMIDE 2 MG CAP PO PRN ×2 (15:20→21:58)
--- NOTE | 2020-05-30 16:35 | PN ---
PROGRESS NOTE DATE OF SERVICE: 05/30/2020 This is a 59-year-old gentleman admitted with diffuse abdominal pain. The patient had rather chronic abdominal pain. Patient has seen multiple consultants. Dr. Lawson and Dr. Johnson saw the patient. Dr. Johnson possibly recommended testing previously which the patient refused. Bentyl was initiated by Dr. Johnson. ESR and CRP are elevated. Empiric steroids have been initiated. No chest pain. No palpitations. No fever. PHYSICAL EXAMINATION: GENERAL: Patient is alert and oriented times three. VITAL SIGNS: Pulse 76, blood pressure 134/70, respirations 15, temperature 97.2, pulse ox 98% on room air HEENT: Conjunctivae normal. NECK: No jugular venous distention. RESPIRATORY: Breath sounds diminished at the bases. No rhonchi, no crackles. HEART: S1 and S2, muffled. ABDOMEN: Soft, obese, mild diffuse tenderness in the lower quadrants. EXTREMITIES: No edema, no swelling. NERVOUS: No focal deficits. LABS: Hemoglobin 9.2. C difficile is negative. ASSESSMENT: 1. Diffuse lower abdominal pain, possible diverticulitis, possibly colitis. 2. Continued fever. 3. Chronic abdominal pain. 4. Hyponatremia. 5. Inflammatory changes around the previous ostomy site subcutaneously. 6. Elevated lactic acid. 7. Anemia, microcytic. 8. Increased platelets. 9. Gastroesophageal reflux disease. 10.Degenerative joint disease. 11.History of colon cancer surgery with resection. 12.History of colectomy, colostomy, ileostomy which was reversed. 13.History of sigmoid stent. 14.History of bowel resection. 15.Obesity with body mass index of 44.9. 16.FULL CODE. RECOMMENDATIONS AND DISCUSSION: I recommend to continue current medications, continue with monitoring and symptomatic treatment. Otherwise, at this time, Bentyl was initiated and IV steroids. Monitor blood sugars closely. Closely follow with Dr. Johnson. Further recommendations to follow. Monitor Accu-Cheks. MMODL / IJN: [id number] /
[2020-05-30 17:27] LABS: Glucose,Whole Blood 204 mg/dL (75-99)
[2020-05-30] MEDS: INSULIN ASPART (NovoLOG) 100 UNIT/ML VIAL SQ SCH ×2 (17:33→20:12)
[2020-05-30 20:04] LABS: Glucose,Whole Blood 223 mg/dL (75-99)
[2020-05-30 21:27] VITALS: RESP 16
[2020-05-31] MEDS: HYDROmorphone 0.5 MG/0.5 ML SYRINGE IVP PRN ×6 (02:05→10:18)
[2020-05-31] MEDS: SODIUM CHLORIDE 0.9% 1,000 ML IV SCH (02:08)
[2020-05-31] MEDS: PIPERACILLIN-TAZOBACTAM 3.375 GM in SODIUM CHLORIDE 0.9% 100 ML IVPB SCH (04:11)
[2020-05-31 05:06] LABS: Basophils % (A) 0 %; Eosinophils # (A) 0.1 k/uL (0-0.7); Eosinophils % (A) 2 %; HCT 31.8 % (39.0-53.0); HGB 9.9 gm/dL (13.0-17.5); Hypochromasia Marked; Lymphocytes # (A) 0.4 k/uL (1.0-4.8); Lymphocytes % (A) 8 %; MCH 25.3 pg (25.0-35.0); MCHC 31.2 g/dL (31.0-37.0); Mean Platelet Volume 6.8; Monocytes % (A) 1 %; Neutrophils # (A) 4.4 k/uL (1.3-7.7); Neutrophils % (A) 89 %; Platelet Count 316 k/uL (150-450); RBC 3.92 m/uL (4.30-5.90); RDW 14.5 % (11.5-15.5); WBC 4.9 k/uL (3.8-10.6)
[2020-05-31 05:09] VITALS: BP 158/89; PULSE 74; TEMP 98.4
[2020-05-31] MEDS: methylPREDNISolone SOD SUCCI 125 MG/2 ML VIAL IV SCH (05:36)
[2020-05-31] MEDS: HYDROcodone/APAP 5-325MG 1 EACH TAB PO PRN ×2 (05:36→11:27)
[2020-05-31 07:18] LABS: Glucose,Whole Blood 233 mg/dL (75-99)
[2020-05-31] MEDS: INSULIN ASPART (NovoLOG) 100 UNIT/ML VIAL SQ SCH (08:03)
[2020-05-31] MEDS: TRIAMTERENE-HCTZ 37.5-25MG 1 EACH TAB PO SCH (08:04)
[2020-05-31] MEDS: FAMOTIDINE 20 MG TAB PO SCH (08:04)
[2020-05-31] MEDS: DICYCLOMINE 10 MG CAP PO SCH (08:04)
[2020-05-31] MEDS: LOPERAMIDE 2 MG CAP PO PRN (08:10)
--- NOTE | 2020-05-31 12:29 | P.PN ---
Subjective Progress Note Date: 05/31/20 Principal diagnosis: Chronic abdominal pain Patient says his pain has improved. He is tolerating his diet. He is having some bowel movements. He states he is going home. Objective - Vital Signs Vital signs: Vital Signs Temp 98.4 F 05/31/20 05:00 Pulse 74 05/31/20 05:00 Resp 16 05/31/20 05:00 BP 158/89 05/31/20 05:00 Pulse Ox 94 L 05/31/20 05:00 Intake & Output 05/30/20 05/31/20 05/31/20 18:59 06:59 18:59 Intake Total 980 590 Balance 980 590 Intake: Intake, IV Titration 800 Amount Sodium Chloride 0.9% 1, 800 000 ml @ 100 mls/hr IV . Q10H JOY Rx#:[id number] Oral 180 590 Other: Voiding Method Toilet # Voids 2 - Exam Abdomen: Soft, nondistended, mild diffuse tenderness - Labs CBC & Chem 7: 05/31/20 04:52 05/30/20 05:07 Labs: Abnormal Lab Results - Last 24 Hours (Table) 05/30/20 05/30/20 05/31/20 Range/Units 17:26 20:04 04:52 RBC 3.92 L (4.30-5.90) m/uL Hgb 9.9 L (13.0-17.5) gm/dL Hct 31.8 L (39.0-53.0) % Lymphocytes # 0.4 L (1.0-4.8) k/uL POC Glucose (mg/dL) 204 H 223 H (75-99) mg/dL 05/31/20 Range/Units 07:17 RBC (4.30-5.90) m/uL Hgb (13.0-17.5) gm/dL Hct (39.0-53.0) % Lymphocytes # (1.0-4.8) k/uL POC Glucose (mg/dL) 233 H (75-99) mg/dL Assessment and Plan (1) Abdominal pain Narrative/Plan: 59-year-old male with chronic abdominal pain. Patient with indwelling stent with perianastomotic inflammatory changes that is chronic. No further fevers. White blood cell count normal. No surgical intervention planned. Anticipate discharge today. Status: Acute Code(s): R10.9 - UNSPECIFIED ABDOMINAL PAIN SNOMED Code(s): 59209353
[2020-05-31 13:04] LABS: African American GFR (CKD) 114.9 (60.0-200.0); Anion Gap 9.8 mmol/L (4.00-12.00); BUN/Creat Ratio 13.75 Ratio (12.00-20.00); Calcium 8.8 mg/dL (8.7-10.3); Carbon Dioxide 20.2 mmol/L (21.6-31.8); Non-African American GFR(CKD) 99.2 (60.0-200.0); Potassium 4.3 mmol/L (3.5-5.5)
--- NOTE | 2020-06-01 05:09 | DS ---
DISCHARGE SUMMARY DATE OF SERVICE: 05/31/2020 FINAL DIAGNOSES: 1. Diffuse lower abdominal pain, possibly diverticulitis, possibly colitis. 2. Continued fever, improved. 3. Chronic abdominal pain. 4. Hyponatremia. 5. Inflammatory changes around the previous ostomy site subcutaneously on the CT scan. 6. Elevated lactic acid, improved. 7. Anemia, microcytic. 8. Increased platelets. 9. Gastroesophageal reflux disease. 10.Degenerative joint disease. 11.History of colon cancer surgery with resection. 12.History of colectomy, colostomy, ileostomy, which was reversed. 13.History of sigmoid stent. 14.History of bowel resection. 15.Obesity with body mass index of 45.9. 16.FULL CODE. DISCHARGE DISPOSITION: The patient will be discharged in stable condition with guarded prognosis. HISTORY OF PRESENT ILLNESS: This 59-year-old gentleman with a past medical history of multiple medical problems admitted with abdominal pain. Patient was seen by Dr. Lawson and Dr. Johnson. The patient was also treated with empiric antibiotics and IV steroids for persistent inflammation. The Sed rate was elevated up to 99 and CRP was 61.6. Cultures are negative. C diff is negative. On exam, vitals are stable. CARDIOVASCULAR: S1, S2 muffled. ABDOMEN: Soft. NERVOUS SYSTEM: No focal deficits. Recommend the patient to follow up with Dr. Johnson closely for possible endoscopies and evaluation for colitis or conditions such as Crohn disease at this time. DISCHARGE ADVICE AND MEDICATIONS: 1. Diet is soft, bland, low residue as tolerated. 2. Follow up with Dr. Connors as mentioned. 3. Follow up with Dr. Johnson as recommended. 4. Follow up with Dr. Lawson, surgeon, as recommended. Medications are: 1. Colace 100 mg daily p.r.n. 2. Simethicone daily. 3. Pepcid 20 mg p.o. b.i.d. 4. Prilosec 20 mg p.o. b.i.d. 5. Triamterene hydrochlorothiazide 1 tablet p.o. daily. 6. Zofran 4 mg q.6 p.r.n. 7. Augmentin 1 p.o. b.i.d. for 3 days. 8. Bentyl 10 mg p.o. b.i.d. p.r.n. 9. [place] 10 mg q.6 p.r.n. 10.Prednisone 40 mg daily for 5 days, 30 for 5 days, 20 for 3 days and 10 for 3 days. Follow up labs CBC and BMP with Dr. Connors. Once again the patient will be discharged in stable condition with guarded prognosis. MMODL / IJN: [id number] /
== END 2020-05-31 12:23 | disposition home or self-care (01) | DRG 392 ==
LOC: EC 13:51 → 6NMEDSUR 17:56 → OBSVTOIN 05-28 09:40
PROVIDERS: ADMIT Hospitalist; ATTEND Hospitalist
DX: K57.32 Diverticulitis of large intestine without perforation or abscess without bleeding (principal); E87.1 Hypo-osmolality and hyponatremia; Z68.42 Body mass index [BMI] 45.0-49.9, adult; K52.9 Noninfective gastroenteritis and colitis, unspecified; D50.9 Iron deficiency anemia, unspecified; E66.01 Morbid (severe) obesity due to excess calories; E78.5 Hyperlipidemia, unspecified; E86.0 Dehydration; G89.29 Other chronic pain; I10 Essential (primary) hypertension; K21.9 Gastro-esophageal reflux disease without esophagitis; R50.9 Fever, unspecified; M19.90 Unspecified osteoarthritis, unspecified site; Z80.0 Family history of malignant neoplasm of digestive organs; Z82.49 Family history of ischemic heart disease and other diseases of the circulatory system; Z83.3 Family history of diabetes mellitus; Z85.048 Personal history of other malignant neoplasm of rectum, rectosigmoid junction, and anus; Z87.891 Personal history of nicotine dependence; Z90.49 Acquired absence of other specified parts of digestive tract; Z92.21 Personal history of antineoplastic chemotherapy; Z93.3 Colostomy status; Z90.89 Acquired absence of other organs; Z98.890 Other specified postprocedural states
CPT/HCPCS: 36415; 74177; 80048; 80053; 81003; 82150; 83036; 83605; 83690; 85025; 85610; 85652; 86140; 87324; 96361; 96374; 96375; 96376; 99285

== ENCOUNTER 2020-06-14 15:01 | Inpatient (IN) | payer OTHER ==
[2020-06-14] MEDS ORDERED: HYDROmorphone 1 MG/ML 1 ML SYRINGE IVP STA (15:37)
[2020-06-14] MEDS ORDERED: ONDANSETRON 4 MG/2 ML VIAL IVP STA (15:37)
[2020-06-14] MEDS ORDERED: SODIUM CHLORIDE 0.9% 1,000 ML IV STA (15:37)
[2020-06-14 16:07] LABS: Appearance,Urine Clear (Clear); Bilirubin,Urine Negative (Negative); Blood,Urine Negative (Negative); Color,Urine Yellow; Glucose,Urine (UA) Negative (Negative); Ketones,Urine Negative (Negative); Leukocyte Esterase,Urine Negative (Negative); Nitrite,Urine Negative (Negative); Protein,Urine Trace (Negative); Specific Gravity,Urine 1.027 (1.001-1.035); Urobilinogen,Urine <2.0 mg/dL (<2.0)
[2020-06-14 16:14] LABS: Partial Thromboplastin Time 24.5 sec (22.0-30.0); Prothrombin Time 10.2 sec (9.0-12.0)
[2020-06-14 16:18] LABS: ALT 13 U/L (4-49); AST 24 U/L (17-59); African American GFR (CKD) >90 (>60 ml/min/1.73 sqM); Albumin 4.1 g/dL (3.5-5.0); Alkaline Phosphatase 57 U/L (38-126); Anion Gap 11 mmol/L; Blood Urea Nitrogen 26 mg/dL (9-20); Calcium 9.6 mg/dL (8.4-10.2); Carbon Dioxide 22 mmol/L (22-30); Chloride 93 mmol/L (98-107); Glucose 137 mg/dL (74-99); Lipase 39 U/L (23-300); Non-African American GFR(CKD) 84 (>60 ml/min/1.73 sqM); Potassium 3.8 mmol/L (3.5-5.1); Sodium 126 mmol/L (137-145); Total Protein 7.3 g/dL (6.3-8.2)
--- NOTE | 2020-06-14 16:23 | ED ---
Abdominal Pain HPI - General Chief Complaint: Abdominal Pain Stated Complaint: sob/abd pain Time Seen by Provider: 06/14/20 15:31 Source: patient Mode of arrival: ambulatory Limitations: no limitations - History of Present Illness Initial Comments: 59-year-old male patient presents to the emergency department today for evaluation of generalized abdominal pain worse on the right side. Patient is also reporting shortness of breath especially with physical activity. Patient states he's been feeling unwell since discharged after being admitted at the [facility] [place] for similar complaints. Patient has had multiple surgeries to his abdomen including colectomy with placement of an ileostomy and then subsequent reversal. States he has not followed up with his general surgeon because they have no idea what is causing his pain. Patient states he has been nauseated but denies any vomiting. States he is only able to eat about 1 meal per day. States his stool has been loose, denies hematochezia or melena. Denies any difficulty with urination. Denies any fever or chills. States he does have a prescription for [place] and takes 2 tablets of 10/325 every 6 hours, this is not helping his pain at all. Patient states that shortness breath s tarted couple of weeks ago. States he gets short of breath even when he just crosses the room. He denies any increased swelling to his extremities. Denies cough or congestion. Denies chest pain. Patient denies any recent rash, diarrhea, constipation, back pain, numbness, tingling, dizziness, weakness, hematuria, dysuria, urinary urgency, urinary frequency, headache, visual changes, or any other complaints. - Related Data Home Medications Medication Instructions Recorded Confirmed Triamterene/Hydrochlorothiazid 1 tab PO DAILY 10/08/19 06/14/20 [Triamterene-Hctz 37.5-25 mg Tb] Docusate [Colace] 100 mg PO DAILY PRN 12/14/19 06/14/20 Famotidine [Pepcid] 20 mg PO BID PRN 05/11/20 06/14/20 Ondansetron [Zofran ODT] 4 mg PO DAILY PRN 05/27/20 06/14/20 Previous Rx's Medication Instructions Recorded HYDROcodone/APAP 10-325MG [[place] 2 tab PO Q6H PRN #16 tab 12/26/19 10-325] Allergies Allergy/AdvReac Type Severity Reaction Status Date / Time No Known Allergies Allergy Verified 06/14/20 16:18 Review of Systems ROS Statement: Those systems with pertinent positive or pertinent negative responses have been documented in the HPI. ROS Other: All systems not noted in ROS Statement are negative. Past Medical History Past Medical History: Cancer, GERD/Reflux, Osteoarthritis (OA) Additional Past Medical History / Comment(s): Pt admitted to [facility] on 12/01/19 with a fall/struck R side abdomin/abdominal pain/vomiting/decrease ostomy function/incisional abdominal hernia. Other hx: Rectal cancer 2017 with colectomy/ileostomy then reversal/chemo pills and radiation, partial colonic obstruction-pt sent to [facility] and had diverting loop colostomy, chronic low back pain, arthritis in multiple joints, neuropathy bilateral feet/toes and R hand, iron deficiency anemia. History of Any Multi-Drug Resistant Organisms: None Reported Past Surgical History: Appendectomy, Bowel Resection, Orthopedic Surgery, Tonsillectomy Additional Past Surgical History / Comment(s): Colectomy/ileostomy with reversal, diverting loop colostomy, colonoscopies, L elbow bursa surgery, double hernia repair Past Anesthesia/Blood Transfusion Reactions: No Reported Reaction Past Psychological History: No Psychological Hx Reported Smoking Status: Former smoker Past Alcohol Use History: Rare Past Drug Use History: None Reported - Past Family History Mother Family Medical History: Cancer, Diabetes Mellitus Additional Family Medical History / Comment(s): from liver cancer Father Family Medical History: Myocardial Infarction (CT) Additional Family Medical History / Comment(s): Pt has not spoken to his father in years and does not know much of his medical hx. General Exam Limitations: no limitations General appearance: alert, in no apparent distress, other (This is a well- developed, well-nourished adult male patient in no acute distress. Vital signs upon presentation are temperature 98.8F, pulse 119, respirations 20, blood pressure 143/85, pulse ox 97% on room air.) Eye exam: Present: normal appearance, PERRL, EOMI. Absent: scleral icterus, conjunctival injection, periorbital swelling ENT exam: Present: normal exam, normal oropharynx, mucous membranes moist Respiratory exam: Present: normal lung sounds bilaterally. Absent: respiratory distress, wheezes, rales, rhonchi, stridor Cardiovascular Exam: Present: normal rhythm, tachycardia, normal heart sounds. Absent: systolic murmur, diastolic murmur, rubs, gallop, clicks GI/Abdominal exam: Present: soft, tenderness (Generalized tenderness worse over the right side), normal bowel sounds. Absent: distended, guarding, rebound, rigid Neurological exam: Present: alert, oriented X3, CN II-XII intact Psychiatric exam: Present: normal affect, normal mood Skin exam: Present: warm, dry, intact, normal color. Absent: rash Course Vital Signs 06/14/20 06/14/20 15:16 18:33 Temperature 98.8 F Pulse Rate 119 H 105 H Respiratory 20 17 Rate Blood Pressure 143/85 151/88 O2 Sat by Pulse 97 98 Oximetry Medical Decision Making - Medical Decision Making 59-year-old male patient presents to the emergency department today for evaluation of generalized abdominal pain worse on the right side. Patient did have generalized abdominal tenderness. Labs reviewed and did reveal mildly elevated white blood cell count. Lactic acid is 3.1. Sodium is 126. KUB x-ray did show colonic gaseous distention concerning for ileus versus pseudoobstruction. Patient has had 9 CT scans over the last year so we did not repeat this today. He will be admitted to the hospital for further evaluation and monitoring. Surgery will be consulted. We'll provide IV fluids to replace sodium. He verbalizes understanding and agrees with this plan. - Lab Data Result diagrams: 06/14/20 15:40 06/14/20 15:40 Lab Results 06/14/20 06/14/20 06/14/20 Range/Units 15:40 15:40 15:40 WBC 8.4 (3.8-10.6) k/uL RBC 4.69 (4.30-5.90) m/uL Hgb 12.3 L (13.0-17.5) gm/dL Hct 39.1 (39.0-53.0) % MCV 83.3 (80.0-100.0) fL MCH 26.1 (25.0-35.0) pg MCHC 31.3 (31.0-37.0) g/dL RDW 16.8 H (11.5-15.5) % Plt Count 327 (150-450) k/uL Neutrophils % 75 % Lymphocytes % 10 % Monocytes % 12 % Eosinophils % 1 % Basophils % 0 % Neutrophils # 6.3 (1.3-7.7) k/uL Lymphocytes # 0.8 L (1.0-4.8) k/uL Monocytes # 1.0 (0-1.0) k/uL Eosinophils # 0.1 (0-0.7) k/uL Basophils # 0.0 (0-0.2) k/uL Hypochromasia Slight Anisocytosis Slight PT 10.2 (9.0-12.0) sec INR 1.0 (<1.2) APTT 24.5 (22.0-30.0) sec Sodium (137-145) mmol/L Potassium (3.5-5.1) mmol/L Chloride (98-107) mmol/L Carbon Dioxide (22-30) mmol/L Anion Gap mmol/L BUN (9-20) mg/dL Creatinine (0.66-1.25) mg/dL Est GFR (CKD-EPI)AfAm (>60 ml/min/1.73 sqM) Est GFR (CKD-EPI)NonAf (>60 ml/min/1.73 sqM) Glucose (74-99) mg/dL Lactic Ac Sepsis Rflx Plasma Lactic Acid Gerry (0.7-2.0) mmol/L Calcium (8.4-10.2) mg/dL Total Bilirubin (0.2-1.3) mg/dL AST (17-59) U/L ALT (4-49) U/L Alkaline Phosphatase (38-126) U/L Troponin I (0.000-0.034) ng/mL Total Protein (6.3-8.2) g/dL Albumin (3.5-5.0) g/dL Lipase (23-300) U/L Urine Color Yellow Urine Appearance Clear (Clear) Urine pH 6.0 (5.0-8.0) Ur Specific [place] 1.027 (1.001-1.035) Urine Protein Trace H (Negative) Urine Glucose (UA) Negative (Negative) Urine Ketones Negative (Negative) Urine Blood Negative (Negative) Urine Nitrite Negative (Negative) Urine Bilirubin Negative (Negative) Urine Urobilinogen <2.0 (<2.0) mg/dL Ur Leukocyte Esterase Negative (Negative) 06/14/20 06/14/20 06/14/20 Range/Units 15:40 15:40 15:40 WBC (3.8-10.6) k/uL RBC (4.30-5.90) m/uL Hgb (13.0-17.5) gm/dL Hct (39.0-53.0) % MCV (80.0-100.0) fL MCH (25.0-35.0) pg MCHC (31.0-37.0) g/dL RDW (11.5-15.5) % Plt Count (150-450) k/uL Neutrophils % % Lymphocytes % % Monocytes % % Eosinophils % % Basophils % % Neutrophils # (1.3-7.7) k/uL Lymphocytes # (1.0-4.8) k/uL Monocytes # (0-1.0) k/uL Eosinophils # (0-0.7) k/uL Basophils # (0-0.2) k/uL Hypochromasia Anisocytosis PT (9.0-12.0) sec INR (<1.2) APTT (22.0-30.0) sec Sodium 126 L (137-145) mmol/L Potassium 3.8 (3.5-5.1) mmol/L Chloride 93 L (98-107) mmol/L Carbon Dioxide 22 (22-30) mmol/L Anion Gap 11 mmol/L BUN 26 H (9-20) mg/dL Creatinine 0.99 (0.66-1.25) mg/dL Est GFR (CKD-EPI)AfAm >90 (>60 ml/min/1.73 sqM) Est GFR (CKD-EPI)NonAf 84 (>60 ml/min/1.73 sqM) Glucose 137 H (74-99) mg/dL Lactic Ac Sepsis Rflx Plasma Lactic Acid Gerry 3.1 H* (0.7-2.0) mmol/L Calcium 9.6 (8.4-10.2) mg/dL Total Bilirubin 1.0 (0.2-1.3) mg/dL AST 24 (17-59) U/L ALT 13 (4-49) U/L Alkaline Phosphatase 57 (38-126) U/L Troponin I <0.012 (0.000-0.034) ng/mL Total Protein 7.3 (6.3-8.2) g/dL Albumin 4.1 (3.5-5.0) g/dL Lipase 39 (23-300) U/L Urine Color Urine Appearance (Clear) Urine pH (5.0-8.0) Ur Specific [place] (1.001-1.035) Urine Protein (Negative) Urine Glucose (UA) (Negative) Urine Ketones (Negative) Urine Blood (Negative) Urine Nitrite (Negative) Urine Bilirubin (Negative) Urine Urobilinogen (<2.0) mg/dL Ur Leukocyte Esterase (Negative) 06/14/20 Range/Units 16:20 WBC (3.8-10.6) k/uL RBC (4.30-5.90) m/uL Hgb (13.0-17.5) gm/dL Hct (39.0-53.0) % MCV (80.0-100.0) fL MCH (25.0-35.0) pg MCHC (31.0-37.0) g/dL RDW (11.5-15.5) % Plt Count (150-450) k/uL Neutrophils % % Lymphocytes % % Monocytes % % Eosinophils % % Basophils % % Neutrophils # (1.3-7.7) k/uL Lymphocytes # (1.0-4.8) k/uL Monocytes # (0-1.0) k/uL Eosinophils # (0-0.7) k/uL Basophils # (0-0.2) k/uL Hypochromasia Anisocytosis PT (9.0-12.0) sec INR (<1.2) APTT (22.0-30.0) sec Sodium (137-145) mmol/L Potassium (3.5-5.1) mmol/L Chloride (98-107) mmol/L Carbon Dioxide (22-30) mmol/L Anion Gap mmol/L BUN (9-20) mg/dL Creatinine (0.66-1.25) mg/dL Est GFR (CKD-EPI)AfAm (>60 ml/min/1.73 sqM) Est GFR (CKD-EPI)NonAf (>60 ml/min/1.73 sqM) Glucose (74-99) mg/dL Lactic Ac Sepsis Rflx Y Plasma Lactic Acid Gerry (0.7-2.0) mmol/L Calcium (8.4-10.2) mg/dL Total Bilirubin (0.2-1.3) mg/dL AST (17-59) U/L ALT (4-49) U/L Alkaline Phosphatase (38-126) U/L Troponin I (0.000-0.034) ng/mL Total Protein (6.3-8.2) g/dL Albumin (3.5-5.0) g/dL Lipase (23-300) U/L Urine Color Urine Appearance (Clear) Urine pH (5.0-8.0) Ur Specific [place] (1.001-1.035) Urine Protein (Negative) Urine Glucose (UA) (Negative) Urine Ketones (Negative) Urine Blood (Negative) Urine Nitrite (Negative) Urine Bilirubin (Negative) Urine Urobilinogen (<2.0) mg/dL Ur Leukocyte Esterase (Negative) - Radiology Data Radiology results: report reviewed, image reviewed Two-view x-ray of the chest is obtained. Report was reviewed in its entirety. Impression by Lisha Goetz shows no acute cardiopulmonary process. Colonic gaseous distention. X-ray of the abdomen is obtained. Report was reviewed in its entirety. Impression by Dr. Russell shows markedly gaseous colonic distention may relate to ileus versus colonic pseudoobstruction. Disposition Clinical Impression: Abdominal pain, Dyspnea Disposition: ADMITTED IP TO THIS [facility] Condition: Serious Decision to Admit Reason: Admit from Decision Date: 06/14/20 Decision Time: 18:10
[2020-06-14 16:37] LABS: Anisocytosis Slight; Basophils % (A) 0 %; Eosinophils # (A) 0.1 k/uL (0-0.7); Eosinophils % (A) 1 %; HCT 39.1 % (39.0-53.0); HGB 12.3 gm/dL (13.0-17.5); Hypochromasia Slight; Lymphocytes # (A) 0.8 k/uL (1.0-4.8); Lymphocytes % (A) 10 %; MCH 26.1 pg (25.0-35.0); MCHC 31.3 g/dL (31.0-37.0); MCV 83.3 fL (80.0-100.0); Mean Platelet Volume 6.4; Monocytes % (A) 12 %; Neutrophils # (A) 6.3 k/uL (1.3-7.7); Neutrophils % (A) 75 %; Platelet Count 327 k/uL (150-450); RBC 4.69 m/uL (4.30-5.90); RDW 16.8 % (11.5-15.5); WBC 8.4 k/uL (3.8-10.6)
--- NOTE | 2020-06-14 16:43 | XR ---
EXAMINATION TYPE: XR chest 2V DATE OF EXAM: 06/14/2020 COMPARISON: 05/11/2020. HISTORY: Shortness of breath. TECHNIQUE: Frontal and lateral views of the chest are obtained. FINDINGS: There is no focal air space opacity, pleural effusion, or pneumothorax seen. The cardiac silhouette size is within normal limits. The osseous structures are intact. There is colonic gaseou s distention noted. IMPRESSION: No acute cardiopulmonary process. Colonic gaseous distention.
--- NOTE | 2020-06-14 17:41 | XR ---
EXAM: Abdomen radiograph. HISTORY: Pain. TECHNIQUE: Supine AP view. COMPARISON: 70 radiographic FINDINGS: There is marked gaseous distention of the visualized colonic loops. There is paucity of small bowel g as. There are no pathologic calcifications. No acute osseous abnormality seen. Stent overlying the pe lvis is noted. There is severe osteoarthritis of the right hip with superimposed osteonecrosis. IMPRESSION: Marked gaseous colonic distention may relate to ileus versus colonic pseudoobstruction.
[2020-06-14] MEDS ORDERED: NALOXONE 0.4 MG/ML 1 ML VIAL IV PRN (18:08)
[2020-06-14] MEDS: HYDROmorphone 1 MG/ML 1 ML SYRINGE IVP PRN ×2 (18:29→21:45)
[2020-06-14] MEDS ORDERED: LEVOFLOXACIN 500MG-D5W PMX 500 MG in DEXTROSE/WATER 1 100ML.BAG IVPB STA (20:21)
--- NOTE | 2020-06-14 20:30 | US ---
EXAMINATION TYPE: US gallbladder DATE OF EXAM: 06/14/2020 COMPARISON: CT CLINICAL HISTORY: right sided abd pain. Right-sided abdominal pain x several years. Hx appendectomy. EXAM MEASUREMENTS: Liver Length: 18.7 cm Gallbladder Wall: 0.28 cm CBD: 0.39 cm Right Kidney: 11.9 x 4.9 x 5.1 cm Very limited exam due to gas and patient body habitus. Pancreas: Not visualized. Liver: Limited. Measures enlarged. Appears to have a slightly increased echogenicity. Gallbladder: Limited. Visualized internal echoes suggestive of biliary sludge. No definite gallstones . Evidence for sonographic Lawrence's sign: Reported positive. CBD: Limited, measured at 0.39 cm. Right Kidney: Cortex appears thin. IMPRESSION: Biliary sludge with reported positive sonographic sign. Otherwise no significant gallbladder wall thi ckening or pericholecystic fluid. Findings are equivocal for acute cholecystitis. Hepatomegaly with steatosis.
[2020-06-14] MEDS: SODIUM CHLORIDE 0.9% 1,000 ML IV SCH (20:55)
[2020-06-14] MEDS: PANTOPRAZOLE 40 MG/10 ML VIAL IVP SCH (21:45)
--- NOTE | 2020-06-14 23:20 | HP ---
HISTORY AND PHYSICAL DATE OF SERVICE: 06/14/2020 CHIEF COMPLAINT: Abdominal pain. HISTORY OF PRESENT ILLNESS: This 59-year-old gentleman with a past medical history of multiple medical problems, including history of GERD, history of DJD, history of abdominal pain, vomiting, history of decreased ostomy function, history of colectomy, ileostomy reversal, history of bowel resection, being followed by Dr. Connors in the outpatient setting, was recently admitted to [facility] with features of abdominal pain. The patient was treated symptomatically. Dr. Lawson was also consulted. The possibility of diverticulitis and colitis was suspected. Inflammatory changes were also noted. The patient was treated with empiric antibiotics currently. The patient went home and subsequently now the patient is complaining of abdominal pain which is mostly in the upper abdomen, and the patient is admitted for further evaluation and treatment. There is no history of any fever, rigor or chills. No history of headache, loss of consciousness, seizures. KUB x-ray showed marked gaseous colonic distention, possibly colonic pseudo-obstruction, and a gallbladder ultrasound was also done which showed biliary sludge and reported positive sonographic sign also. PAST MEDICAL HISTORY: GERD, DJD, history of appendectomy, bowel resection, history of recent colitis. MEDICATIONS: 1. Triamterene. 2. Zofran. 3. [place]. 4. Pepcid. 5. Colace. ALLERGIES: NONE. FAMILY HISTORY: History of diabetes mellitus and liver cancer. SOCIAL HISTORY: Previous history of smoking. No current smoking or alcohol intake. REVIEW OF SYSTEMS: ENT: No diminished hearing. No diminished vision. CARDIOVASCULAR SYSTEM: No angina, palpitations. RESPIRATORY SYSTEM: As mentioned earlier. GI: As mentioned earlier. : No dysuria or retention. NERVOUS SYSTEM: No numbness, weakness. ALLERGY/IMMUNOLOGY: No asthma, hayfever. MUSCULOSKELETAL: As mentioned earlier. HEMATOLOGY/ONCOLOGY: No history of anemia. ENDOCRINE: No history of diabetes, hypothyroidism. CONSTITUTIONAL: As mentioned earlier. DERMATOLOGY: Negative. RHEUMATOLOGY: Negative. PSYCHIATRY: As mentioned earlier. PHYSICAL EXAMINATION: Patient alert and oriented x3. Pulse 102, blood pressure 150/70, respiration 18, temperature 99 degrees, pulse ox 98% on room air. HEENT: Conjunctivae normal. Oral mucosa moist. NECK: No jugular venous distention. No carotid bruit. No lymph node enlargement. CARDIOVASCULAR SYSTEM: S1, S2 muffled. RESPIRATORY SYSTEM: Breath sounds diminished at the bases. A few scattered rhonchi. No crackles. ABDOMEN: Soft, obese. Mild diffuse tenderness in the upper abdomen present. No guarding. No mass palpable. LEGS: No edema. No swelling. NERVOUS SYSTEM: Higher functions as mentioned earlier. Moves all 4 limbs. No focal motor or sensory deficit. LYMPHATICS: No lymph node palpable in neck, axillae or groin. SKIN: No ulcer, rash, bleeding. JOINTS: No active deforming arthropathy. LABS: Labs at this time show WBC 8.2, hemoglobin 12.2, sodium 126. Lactic acid 3.1. ASSESSMENT: 1. Upper abdominal pain, possible acute cholecystitis with possible sepsis, present on admission. 2. Hyponatremia. 3. Elevated lactic acid, possibly secondary to sepsis. 4. History of recent admission for abdominal pain, possible diverticulitis and colitis. 5. Chronic abdominal pain. 6. History of gastroesophageal reflux disease. 7. History of degenerative joint disease. 8. History of colon cancer with surgery and resection. 9. History of colectomy, colostomy, ileostomy which was reversed. 10.History of sigmoid stent. 11.History of bowel resection. 12.Obesity with body mass index of 45.8. 13.Appendectomy. 14.History of bilateral peripheral neuropathy. 15.History of double hernia repair. 16.Remote history of nicotine dependence. 17.FULL CODE. RECOMMENDATIONS AND DISCUSSION: In this 59-year-old gentleman who presented with multiple complex medical issues, we will monitor the patient closely, continue the current medications, continue symptomatic treatment. Will initiate empiric antibiotics. Surgical consultation with Dr. Lawson. Otherwise, prognosis guarded because of the multiple complex medical issues. Further recommendations to follow. A copy of this dictation is being forwarded to Dr. Connors, who is the primary physician. See orders for details. MMODL / IJN: [id number] /
[2020-06-15] MEDS: PIPERACILLIN-TAZOBACTAM 3.375 GM in SODIUM CHLORIDE 0.9% 100 ML IVPB SCH ×3 (00:46→15:49)
[2020-06-15] MEDS: HYDROmorphone 1 MG/ML 1 ML SYRINGE IVP PRN ×5 (00:47→12:58)
[2020-06-15 06:50] LABS: Anisocytosis Slight; Basophils % (A) 0 %; Eosinophils # (A) 0.1 k/uL (0-0.7); Eosinophils % (A) 1 %; HCT 32.1 % (39.0-53.0); HGB 10.3 gm/dL (13.0-17.5); Hypochromasia Slight; Lymphocytes # (A) 0.7 k/uL (1.0-4.8); Lymphocytes % (A) 15 %; MCH 27.1 pg (25.0-35.0); MCV 84.5 fL (80.0-100.0); Mean Platelet Volume 6.4; Monocytes # (A) 0.7 k/uL (0-1.0); Monocytes % (A) 14 %; Neutrophils # (A) 3.4 k/uL (1.3-7.7); Neutrophils % (A) 68 %; Platelet Count 204 k/uL (150-450); RDW 16.8 % (11.5-15.5)
[2020-06-15] MEDS: HEPARIN SODIUM,PORCINE 5,000 UNIT/ML 1 ML VIAL SQ SCH ×2 (08:41→20:59)
[2020-06-15] MEDS: PANTOPRAZOLE 40 MG/10 ML VIAL IVP SCH (08:41)
[2020-06-15] MEDS: HYDROcodone/APAP 10-325MG 1 EACH TAB PO PRN ×3 (08:52→20:58)
[2020-06-15] MEDS ORDERED: TRIAMTERENE-HCTZ 37.5-25MG 1 EACH TAB PO SCH (09:00)
[2020-06-15] MEDS: ONDANSETRON 4 MG/2 ML VIAL IVP PRN (09:08)
[2020-06-15 09:24] LABS: African American GFR (CKD) 109.5 (60.0-200.0); Anion Gap 9.1 mmol/L (4.00-12.00); Calcium 8.9 mg/dL (8.7-10.3); Carbon Dioxide 25.9 mmol/L (21.6-31.8); Non-African American GFR(CKD) 94.5 (60.0-200.0); Potassium 3.6 mmol/L (3.5-5.5)
--- NOTE | 2020-06-15 10:44 | CT ---
EXAMINATION TYPE: CT abdomen pelvis wo con DATE OF EXAM: 06/15/2020 HISTORY: Abdominal pain, history of multiple prior bowel surgeries. CT DLP: 1581.2 mGycm. Automated Exposure Control for Dose Reduction was Utilized. TECHNIQUE: CT scan of the abdomen and pelvis is performed without oral or IV contrast. COMPARISON: CT abdomen and pelvis 19 days ago and multiple older studies. FINDINGS: Within the limitations of a non-contrast study, the following observations are made. LUNG BASES: Persistent posterior right basilar diaphragmatic Bochdalek type hernia. LIVER/GB: Gallbladder has distended margins on current study. No surrounding fat stranding or suspici ous fluid. PANCREAS: Mild/moderate generalized atrophy involving pancreatic head redemonstrated. SPLEEN: No significant abnormality is seen. ADRENALS: No significant abnormality is seen. KIDNEYS: Some cortical thinning in both kidneys. Roughly 1.5 cm thin-walled cyst upper to mid pole of the right kidney coronal image 82 redemonstrated. BOWEL: Suboptimal evaluation of bowel without enteric contrast. Stomach poorly distended and thus sub optimally evaluated. No suspicious small bowel dilatation. Surgical sutures seen anteriorly near hepa tic flexure. There is fecal prominent mid to distal transverse colon up to level of surgical sutures near splenic flexure. Additional prominent fecal filled left colon noted. There is metallic sigmoid c olonic stent with abnormal soft tissue distal aspect of stent involving presacral space redemonstrate d. Occasional scattered pelvic phleboliths. GENITAL ORGANS: No gross abnormality seen. LYMPH NODES: No greater than 1cm abdominal or pelvic lymph nodes are appreciated. OSSEOUS STRUCTURES: No significant abnormality is seen. OTHER: Scar tissue left mid abdomen anteriorly redemonstrated at site of prior ostomy. Persists in a nterior left mid abdominal mass containing fat with thin soft tissue rim axial image 47 measuring 4.2 cm transversely favor benign fatty intraperitoneal lesion. IMPRESSION: No bowel obstruction. Moderate mid to distal colonic fecal stasis. Persistent sigmoid rec penny metallic stent. Persistent abnormal concentric soft tissue at distal aspect of stent could reflec t neoplasm. No significant change from most recent CT.
[2020-06-15] MEDS: SODIUM CHLORIDE 0.9% 1,000 ML IV SCH (13:00)
--- NOTE | 2020-06-15 13:22 | P.GSCN ---
History of Present Illness Consult date: 06/15/20 History of present illness: CHIEF COMPLAINT: Abdominal pain HISTORY OF PRESENT ILLNESS: this is a 59-year-old male with a known history of rectal cancer with a lower anterior resection who had chemo and radiation treatment. He developed stricture at the anastomotic site And developed hernia at his temporary ileostomy site. Stricture was treated with a stentwhich is still retained. Unfortunately the stent didn't lead to a partial obstruction at the anastomosis and patient required a diverting loop colostomy at [facility]. Colostomy was reversed February 2020 at [place]. Patient has recurrent admissions for his chronic abdominal pain. He presents again this admission with abdominal pain. During his last hospitalization he was treated for possible colitis. He does report that his abdominal pain is most are mostly upper abdominal pain. He denies any fever, chills or sweats. He did have a gallbladder ultrasound which showed biliary sludge and positive Lawrence sign. Computed tomography scan abdomen shows no bowel obstruction. Moderate mid to distal colonic fecal stasis. Persistent sigmoid rectal metallic stent. Persistent abnormal concentric soft tissue at distal aspect of stent could reflect neoplasm. Patient seen and examined with Dr. Tucker most recent CT. PAST MEDICAL HISTORY: See list. PAST SURGICAL HISTORY: See list. MEDICATIONS: See list. ALLERGIES: See list. SOCIAL HISTORY: No illicit drug use. REVIEW OF SYSTEMS: CONSTITUTIONAL: Denies fever or chills. HEENT: Denies blurred vision, vision changes, or eye pain. Denies hemoptysis CARDIOVASCULAR: Denies chest pain or pressure. RESPIRATORY: No shortness of breath. GASTROINTESTINAL: See HPI for pertinent findings HEMATOLOGIC: Denies bleeding disorders. GENITOURINARY: Denies any blood in urine or increased urinary frequency. SKIN: Denies pruitis. Denies rash. PHYSICAL EXAM: VITAL SIGNS: Reviewed GENERAL: Well-developed in no acute distress. HEENT: No sclera icterus. Extraocular movements grossly intact. Moist buccal mucosa. Head is atraumatic, normocephalic. No nasal drainage. ABDOMEN: Soft. Nondistended. NEUROLOGIC: Alert and oriented. Cranial nerves II through XII grossly intact. LABORATORY DATA: WBC 5.0 hemoglobin 10.3 sodium is 127 Lactic acid 3.1 down to 1.1 LFTs normal lipase normal UA negative IMAGING: gallbladder ultrasound which showed biliary sludge and positive Lawrence sign. Computed tomography scan abdomen shows no bowel obstruction. Moderate mid to distal colonic fecal stasis. Persistent sigmoid rectal metallic stent. Persistent abnormal concentric soft tissue at distal aspect of stent could reflect neoplasm. ASSESSMENT: 1. Abdominal pain no evidence of Bowel obstruction on CAT scan. 2. Moderate mid to distal colonic fecal stasis Noted on computed tomography scan 3. Morbid obesity 4. History of rectal cancer status post lower anterior resection with chemo and radiation treatment 5. History of bowel obstruction with diverting loop colostomy. Status post reversal of colostomy in February 2020 at [facility] PLAN: -advance diet to a full liquid diet -Soap Skye enema ordered Thank you for this consultation Physician Dolly Operator note has been reviewed by physician. Signing provider agrees with the documented findings, assessment, and plan of care. Past Medical History Past Medical History: Cancer, GERD/Reflux, Osteoarthritis (OA) Additional Past Medical History / Comment(s): Pt admitted to [facility] on 12/01/19 with a fall/struck R side abdomin/abdominal pain/vomiting/decrease ostomy function/incisional abdominal hernia. Other hx: Rectal cancer 2017 with colectomy/ileostomy then reversal/chemo pills and radiation, partial colonic obstruction-pt sent to [facility] and had diverting loop colostomy, chronic low back pain, arthritis in multiple joints, neuropathy bilateral feet/toes and R hand, iron deficiency anemia. History of Any Multi-Drug Resistant Organisms: None Reported Past Surgical History: Appendectomy, Bowel Resection, Orthopedic Surgery, Tonsillectomy Additional Past Surgical History / Comment(s): Colectomy/ileostomy with revers al, diverting loop colostomy, colonoscopies, L elbow bursa surgery, double hernia repair Past Anesthesia/Blood Transfusion Reactions: No Reported Reaction Past Psychological History: No Psychological Hx Reported Additional Psychological History / Comment(s): Pt resides in an apartment alone. Pt has a cane which he uses prn. He drives. Smoking Status: Never smoker Past Alcohol Use History: Rare Additional Past Alcohol Use History / Comment(s): Pt started smoking as a teen and quit in 1998. Past Drug Use History: None Reported - Past Family History Mother Family Medical History: Cancer, Diabetes Mellitus Additional Family Medical History / Comment(s): from liver cancer Father Family Medical History: Myocardial Infarction ([place]) Additional Family Medical History / Comment(s): Pt has not spoken to his father in years and does not know much of his medical hx. Medications and Allergies Home Medications Medication Instructions Recorded Confirmed Type Triamterene/Hydrochlorothiazid 1 tab PO DAILY 10/08/19 06/14/20 History [Triamterene-Hctz 37.5-25 mg Tb] Docusate [Colace] 100 mg PO DAILY PRN 12/14/19 06/14/20 History HYDROcodone/APAP 10-325MG [Texline 2 tab PO Q6H PRN #16 tab 12/26/19 06/14/20 Rx 10-325] Famotidine [Pepcid] 20 mg PO BID PRN 05/11/20 06/14/20 History Ondansetron [Zofran ODT] 4 mg PO DAILY PRN 05/27/20 06/14/20 History Allergies Allergy/AdvReac Type Severity Reaction Status Date / Time No Known Allergies Allergy Verified 06/14/20 16:18 Surgical - Exam Vital Signs Temp Pulse Resp BP Pulse Ox 98.8 F 119 H 20 143/85 97 06/14/20 15:16 06/14/20 15:16 06/14/20 15:16 06/14/20 15:16 06/14/20 15:16 Results - Labs 06/15/20 06:10 06/15/20 06:10 Abnormal Lab Results - Last 24 Hours (Table) 06/14/20 06/14/20 06/14/20 Range/Units 15:40 15:40 15:40 RBC (4.30-5.90) m/uL Hgb 12.3 L (13.0-17.5) gm/dL Hct (39.0-53.0) % RDW 16.8 H (11.5-15.5) % Lymphocytes # 0.8 L (1.0-4.8) k/uL Sodium 126 L (137-145) mmol/L Chloride 93 L (98-107) mmol/L BUN 26 H (9-20) mg/dL Glucose 137 H (74-99) mg/dL Plasma Lactic Acid Gerry (0.7-2.0) mmol/L Urine Protein Trace H (Negative) 06/14/20 06/15/20 06/15/20 Range/Units 15:40 06:10 06:10 RBC 3.80 L (4.30-5.90) m/uL Hgb 10.3 L (13.0-17.5) gm/dL Hct 32.1 L (39.0-53.0) % RDW 16.8 H (11.5-15.5) % Lymphocytes # 0.7 L (1.0-4.8) k/uL Sodium 127 L (137-145) mmol/L Chloride 92 L (98-107) mmol/L BUN (9-20) mg/dL Glucose 123 H (74-99) mg/dL Plasma Lactic Acid Gerry 3.1 H* (0.7-2.0) mmol/L Urine Protein (Negative) Diabetes panel 06/14/20 06/15/20 Range/Units 15:40 06:10 Sodium 126 L 127 L (137-145) mmol/L Potassium 3.8 3.6 (3.5-5.1) mmol/L Chloride 93 L 92 L (98-107) mmol/L Carbon Dioxide 22 25.9 (22-30) mmol/L BUN 26 H 18.0 (9-20) mg/dL Creatinine 0.99 0.9 (0.66-1.25) mg/dL Glucose 137 H 123 H (74-99) mg/dL Calcium 9.6 8.9 (8.4-10.2) mg/dL AST 24 (17-59) U/L ALT 13 (4-49) U/L Alkaline Phosphatase 57 (38-126) U/L Total Protein 7.3 (6.3-8.2) g/dL Albumin 4.1 (3.5-5.0) g/dL Calcium panel 06/14/20 06/15/20 Range/Units 15:40 06:10 Calcium 9.6 8.9 (8.4-10.2) mg/dL Albumin 4.1 (3.5-5.0) g/dL Pituitary panel 06/14/20 06/15/20 Range/Units 15:40 06:10 Sodium 126 L 127 L (137-145) mmol/L Potassium 3.8 3.6 (3.5-5.1) mmol/L Chloride 93 L 92 L (98-107) mmol/L Carbon Dioxide 22 25.9 (22-30) mmol/L BUN 26 H 18.0 (9-20) mg/dL Creatinine 0.99 0.9 (0.66-1.25) mg/dL Glucose 137 H 123 H (74-99) mg/dL Calcium 9.6 8.9 (8.4-10.2) mg/dL Adrenal panel 06/14/20 06/15/20 Range/Units 15:40 06:10 Sodium 126 L 127 L (137-145) mmol/L Potassium 3.8 3.6 (3.5-5.1) mmol/L Chloride 93 L 92 L (98-107) mmol/L Carbon Dioxide 22 25.9 (22-30) mmol/L BUN 26 H 18.0 (9-20) mg/dL Creatinine 0.99 0.9 (0.66-1.25) mg/dL Glucose 137 H 123 H (74-99) mg/dL Calcium 9.6 8.9 (8.4-10.2) mg/dL Total Bilirubin 1.0 (0.2-1.3) mg/dL AST 24 (17-59) U/L ALT 13 (4-49) U/L Alkaline Phosphatase 57 (38-126) U/L Total Protein 7.3 (6.3-8.2) g/dL Albumin 4.1 (3.5-5.0) g/dL
--- NOTE | 2020-06-15 16:22 | P.PN ---
Subjective 72-year-old male was admitted for severe abdominal pain patient Points the pain mostly to the lower quadrants but he sees diffuse. He did not characterize the pain. Patient was ordered by general surgery patient the ultrasound also showed EKG local cholecystitis. Patient is does have significant colonic distention and constipation. Patient does take [place] on Regular basis and he doesn't believe these medications are making him constipated he believes his previous surgery from his rectal cancer and radiation therapy is doing that. Patient is on Dilaudid every 3 hours which she is using every 3 hours I started him on Toradol and discontinue Dilaudid although patient is not happy with that. Constitutional: Denied any fatigue denied any fever. Cardio vascular: denied any chest pain, palpitations Gastrointestinal denied any nausea vomiting Pulmonary: As mentioned in HPI Neurologic denied any new focal deficits All inpatient medications were reviewed and appropriate changes in these medications as dictated in the interval history and assessment and plan. Objective - Vital Signs Vital signs: Vital Signs Temp 97.3 F L 06/15/20 15:00 Pulse 91 06/15/20 16:00 Resp 20 06/15/20 16:00 BP 143/81 06/15/20 15:00 Pulse Ox 97 06/15/20 15:00 Intake & Output 06/14/20 06/15/20 06/15/20 18:59 06:59 18:59 Intake Total 200 Balance 200 Weight 140.614 kg 140.614 kg Intake: Oral 200 Other: Voiding Method Toilet # Voids 4 1 # Bowel Movements 3 - Exam PHYSICAL EXAMINATION: GENERAL: The patient is alert and oriented x3, not in any acute distress. Morbidly obese HEENT: Pupils are round and equally reacting to light. EOMI. No scleral icterus. No conjunctival pallor. Normocephalic, atraumatic. No pharyngeal erythema. No thyromegaly. CARDIOVASCULAR: S1 and S2 present. No murmurs, rubs, or gallops. PULMONARY: Chest is clear to auscultation, no wheezing or crackles. ABDOMEN: Soft, nontender, nondistended, normoactive bowel sounds. No palpable organomegaly. MUSCULOSKELETAL: No joint swelling or deformity. EXTREMITIES: No cyanosis, clubbing, or pedal edema. NEUROLOGICAL: Gross neurological examination did not reveal any focal deficits. SKIN: No rashes. - Labs CBC & Chem 7: 06/15/20 06:10 06/15/20 06:10 Labs: Abnormal Lab Results - Last 24 Hours (Table) 06/14/20 06/14/20 06/14/20 Range/Units 15:40 15:40 15:40 RBC (4.30-5.90) m/uL Hgb 12.3 L (13.0-17.5) gm/dL Hct (39.0-53.0) % RDW 16.8 H (11.5-15.5) % Lymphocytes # 0.8 L (1.0-4.8) k/uL Sodium 126 L (137-145) mmol/L Chloride 93 L (98-107) mmol/L BUN 26 H (9-20) mg/dL Glucose 137 H (74-99) mg/dL Plasma Lactic Acid Gerry 3.1 H* (0.7-2.0) mmol/L 06/15/20 06/15/20 Range/Units 06:10 06:10 RBC 3.80 L (4.30-5.90) m/uL Hgb 10.3 L (13.0-17.5) gm/dL Hct 32.1 L (39.0-53.0) % RDW 16.8 H (11.5-15.5) % Lymphocytes # 0.7 L (1.0-4.8) k/uL Sodium 127 L (137-145) mmol/L Chloride 92 L (98-107) mmol/L BUN (9-20) mg/dL Glucose 123 H (74-99) mg/dL Plasma Lactic Acid Gerry (0.7-2.0) mmol/L Assessment and Plan Plan: -Severe abdominal pain: Mostly secondary to constipation Gen. surgery evaluated the patient patient has possibility of cholecystitis on the computed tomography scan. Although clinically patient doesn't appear to have cholecystitis. I'll leave the decision of continuing or discontinuing Zosyn to general surgery -Severe constipation: I spent significant amount of time counseling the patient and that opiates discuss constipation patient is not willing to accept that and still wanted Dilaudid. She does have chronic abdominal pain and patient declined soapsuds enema. -History of rectal cancer status post colectomy colostomy ileostomy and reversal of colostomy. Patient is status post radiation therapy as well as -Gastroesophageal reflux disease -Hyponatremia secondary to diuretics is receiving these diuretics will be discontinued and patient will continued on IV fluids and recheck basic metabolic profile tomorrow. It's needed patient probably need to be started on KIEL inhibitor for blood pressure. -Hypertension DVT prophylaxis with the subcutaneous heparin
[2020-06-16] MEDS: PIPERACILLIN-TAZOBACTAM 3.375 GM in SODIUM CHLORIDE 0.9% 100 ML IVPB SCH ×3 (00:24→15:43)
[2020-06-16] MEDS: KETOROLAC 15 MG/ML 1 ML VIAL IVP PRN ×3 (00:37→21:44)
[2020-06-16] MEDS: ONDANSETRON 4 MG/2 ML VIAL IVP PRN ×3 (00:37→21:47)
[2020-06-16] MEDS: HYDROcodone/APAP 10-325MG 1 EACH TAB PO PRN ×2 (02:58→08:36)
[2020-06-16] MEDS: HEPARIN SODIUM,PORCINE 5,000 UNIT/ML 1 ML VIAL SQ SCH ×2 (08:35→20:27)
[2020-06-16] MEDS: PANTOPRAZOLE 40 MG/10 ML VIAL IVP SCH (08:46)
--- NOTE | 2020-06-16 10:55 | P.PN ---
Subjective Progress Note Date: 06/16/20 CHIEF COMPLAINT: Abdominal pain HISTORY OF PRESENT ILLNESS: Patient evaluated for abdominal pain. No evidence of bowel Obstruction on CAT scan. There was evidence of fecal stasis. Patient refused soapsuds enema. He does report having bowel movement. He still reporting abdominal pain. He is refusing medications. He is refusing To be examined. PHYSICAL EXAM: VITAL SIGNS: Reviewed. Patient refused to be examined ASSESSMENT: 1. Abdominal pain no evidence of Bowel obstruction on CAT scan. 2. Moderate mid to distal colonic fecal stasis Noted on computed tomography scan 3. Morbid obesity 4. History of rectal cancer status post lower anterior resection with chemo and radiation treatment 5. History of bowel obstruction with diverting loop colostomy. Status post reversal of colostomy in February 2020 at [facility] PLAN: -Continue full liquid diet -Consult oncology for cancer pain control Physician Ride Attendant note has been reviewed by physician. Signing provider agrees with the documented findings, assessment, and plan of care. Objective - Vital Signs Vital signs: Vital Signs Temp 98.0 F 06/16/20 07:00 Pulse 78 06/16/20 07:00 Resp 18 06/16/20 03:18 BP 129/85 06/16/20 07:00 Pulse Ox 98 06/16/20 07:00 Intake & Output 06/15/20 06/16/20 06/16/20 18:59 06:59 18:59 Intake Total 200 Balance 200 Intake: Oral 200 Other: Voiding Method Toilet Toilet # Voids 1 2 - Labs CBC & Chem 7: 06/15/20 06:10 06/15/20 06:10 Labs: Microbiology - Last 24 Hours (Table) 06/14/20 20:52 Blood Culture - Preliminary Blood No Growth after 24 hours
[2020-06-16] MEDS: HYDROmorphone 0.5 MG/0.5 ML SYRINGE IVP PRN ×3 (12:46→20:28)
[2020-06-16] MEDS: SODIUM CHLORIDE 0.9% 1,000 ML IV SCH (13:51)
[2020-06-16 14:00] LABS: African American GFR (CKD) >90 (>60 ml/min/1.73 sqM); Anion Gap 5 mmol/L; Blood Urea Nitrogen 15 mg/dL (9-20); Calcium 7.9 mg/dL (8.4-10.2); Carbon Dioxide 26 mmol/L (22-30); Chloride 98 mmol/L (98-107); Glucose 92 mg/dL (74-99); Non-African American GFR(CKD) >90 (>60 ml/min/1.73 sqM); Potassium 3.7 mmol/L (3.5-5.1); Sodium 129 mmol/L (137-145)
--- NOTE | 2020-06-16 17:39 | P.CONS ---
History of Present Illness - Reason for Consult Consult date: 06/16/20 History of rectal Cancer, Pain Requesting physician: Shmuel E Sheet - Chief Complaint Pain - History of Present Illness Son presented to Dr Karissa Johnson for Colonoscopy after Cologuard testing was positive. He stated having few episodes of blood per rectum. 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 The patient denied constipation , changes in bowel habits or abdominal pain. He denied anorexia or weight loss. CT Scan of abdomen/pelvis (done at [facility] 08/16/17) was unremarkable. The patient denied having family history of Colorectal cancer, his mother of metastatic Pancreatic Ca. He smoked 2 PPD X 20 years, quit years ago, denied ETOH use. He is diabled due to chronic back & R hip pain attributed to severe DJD. 09/20/17: Had EUS (Dr Kearns [facility]) > T3N1 disease. Seen by Dr Guido at [facility]: High-risk for surgery. 10/31/17: Tolerating concurrent Radiation therapy/Xeloda very well. He was evaluated by Dr Ramirez at [facility] > will have Colonoscopy/EUS then surgery. 05/28/18: Had LAR on 01/09/2018 ( Dr Ramirez [facility])> T2 (3.1cm) No (0-18)Mo. He had SBO to follow, still having severe abdominal pain> on Methadone by pain clinic at [facility]. 12/03/18: C/O rapidly progressive diffuse abdominal pain. CT Scan revealed inflamatory process around stent. PET Scan negative for malignancy, CEA normal. Cocoa 10 Q8 hours effective. 04/29/19: C/O stools incontinence thought to be 2nd to colonic stent. Attempts to remove stent by Dr Garnica failed. He continues to have intermitent abdominal pain, on Cocoa 10 Q 6 hours PRN. 07/03/19: Feels well, continues to have stools incontinence. Loosing weight (Diet modification) 02/24/20: C/O persistent severe pelvic pain attributed to rectal stent, he wants stent removed and colostomy reversed, which he was told by Dr Lawson & boby that it can't be done. He had incarcerated hernia surgery by Dr Lawson. CT scans in Sep & november 2019 did not show recurrences. He was last seen in January by Dr. Meier and at that time a second surgical opinion was offered, although patient did not follow-up. His largest complaint is pain and he feels this is due to the irreversible surgical intervention. he has been maintained on Cocoa 10/325 during this time, however he now presents to hospital with worsening abdominal pain and complaints of SOB. CT abdomen and Pelvis re-demonstrates persistent soft tissue area, however per the report does not quantify if this appears to be progressed or worsened from prior imaging. Will ask radiology to define comparison for evaluation of recurrent malignancy. Review of Systems All systems: negative Constitutional: Reports as per HPI Past Medical History Past Medical History: Cancer, GERD/Reflux, Osteoarthritis (OA) Additional Past Medical History / Comment(s): Pt admitted to [facility] on 12/01/19 with a fall/struck R side abdomin/abdominal pain/vomiting/decrease ostomy function/incisional abdominal hernia. Other hx: Rectal cancer 2017 with colectomy/ileostomy then reversal/chemo pills and radiation, partial colonic obstruction-pt sent to [facility] and had diverting loop colostomy, chronic low back pain, arthritis in multiple joints, neuropathy bilateral feet/toes and R hand, iron deficiency anemia. History of Any Multi-Drug Resistant Organisms: None Reported Past Surgical History: Appendectomy, Bowel Resection, Orthopedic Surgery, Tonsillectomy Additional Past Surgical History / Comment(s): Colectomy/ileostomy with reversal, diverting loop colostomy, colonoscopies, L elbow bursa surgery, double hernia repair Past Anesthesia/Blood Transfusion Reactions: No Reported Reaction Past Psychological History: No Psychological Hx Reported Additional Psychological History / Comment(s): Pt resides in an apartment alone. Pt has a cane which he uses prn. He drives. Smoking Status: Never smoker Past Alcohol Use History: Rare Additional Past Alcohol Use History / Comment(s): Pt started smoking as a teen and quit in 1998. Past Drug Use History: None Reported - Past Family History Mother Family Medical History: Cancer, Diabetes Mellitus Additional Family Medical History / Comment(s): from liver cancer Father Family Medical History: Myocardial Infarction ([place]) Additional Family Medical History / Comment(s): Pt has not spoken to his father in years and does not know much of his medical hx. Medications and Allergies Home Medications Medication Instructions Recorded Confirmed Type Triamterene/Hydrochlorothiazid 1 tab PO DAILY 10/08/19 06/14/20 History [Triamterene-Hctz 37.5-25 mg Tb] Docusate [Colace] 100 mg PO DAILY PRN 12/14/19 06/14/20 History HYDROcodone/APAP 10-325MG [Cocoa 2 tab PO Q6H PRN #16 tab 12/26/19 06/14/20 Rx 10-325] Famotidine [Pepcid] 20 mg PO BID PRN 05/11/20 06/14/20 History Ondansetron [Zofran ODT] 4 mg PO DAILY PRN 05/27/20 06/14/20 History Allergies Allergy/AdvReac Type Severity Reaction Status Date / Time No Known Allergies Allergy Verified 06/14/20 16:18 Physical Exam Vitals: Vital Signs Temp Pulse Resp BP Pulse Ox 06/16/20 13:54 98.1 F 83 17 114/73 97 06/16/20 07:00 98.0 F 78 129/85 98 06/16/20 03:18 98.8 F 84 18 126/79 97 06/15/20 19:10 98.5 F 89 18 168/83 99 Intake and Output 06/16/20 06/16/20 06/16/20 06:59 14:59 22:59 Other: Voiding Method Toilet # Voids 2 1 # Bowel Movements 1 - Constitutional General appearance: cooperative, no acute distress - EENT Eyes: EOMI, PERRLA ENT: NA/AT, normal oropharynx - Neck Neck: normal ROM - Respiratory Respiratory: bilateral: diminished (bibasilar) - Cardiovascular Rhythm: regular Heart sounds: normal: S1, S2 - Gastrointestinal ostomy with fecal material General gastrointestinal: distended, tenderness - Integumentary Integumentary: pale - Neurologic Neurologic: CNII-XII intact - Musculoskeletal Musculoskeletal: generalized weakness, strength equal bilaterally - Psychiatric Psychiatric: A&O x's 3, appropriate affect, intact judgment & insight Results CBC & Chem 7: 06/15/20 06:10 06/16/20 13:13 Labs: Abnormal Lab Results - Last 24 Hours (Table) 06/16/20 Range/Units 13:13 Sodium 129 L (137-145) mmol/L Calcium 7.9 L (8.4-10.2) mg/dL Microbiology - Last 24 Hours (Table) 06/14/20 20:52 Blood Culture - Preliminary Blood No Growth after [address] scan - abdomen: report reviewed CT scan - pelvis: report reviewed Assessment and Plan (1) Abdominal pain Current Visit: Yes Status: Acute Code(s): R10.9 - UNSPECIFIED ABDOMINAL PAIN SNOMED Code(s): 08271272 (2) Hyponatremia Current Visit: Yes Status: Acute Code(s): E87.1 - HYPO-OSMOLALITY AND HYPONATREMIA SNOMED Code(s): 90286274 (3) BMI 40.0-44.9, adult Current Visit: No Status: Acute Code(s): Z68.41 - SNOMED Code(s): 733079541 (4) Chronic pain syndrome Current Visit: No Status: Acute Code(s): G89.4 - CHRONIC PAIN SYNDROME SNOMED Code(s): 945659694 (5) Constipation Current Visit: No Status: Acute Code(s): K59.00 - CONSTIPATION, UNSPECIFIED SNOMED Code(s): 49088044 (6) History of creation of ostomy Current Visit: No Status: Acute Code(s): Z93.9 - SNOMED Code(s): 173853615 (7) History of rectal cancer Current Visit: No Status: Acute Code(s): Z85.048 - SNOMED Code(s): 076443742 Plan: Recurrent hospitalizations for pain related to surgical intervention needed at time of cancer diagnosis. Overall me Sevilla has a picture of chronic pain and will require further outpatient pain managment. He will need referral to outpati ent pain managment to continue on treatment options and remote computer terminal operator management as this is does not appear to be progressive cancer, but rather pain that is chronic from prior surgical intervention needed. Will start long acting MS Contin Increase Bowel Regimen COntinue on Cocoa as currently prescribed, although if not controlling for immediate relief will try oxycodone. Re-evaluate after MS Contin intiated. Pghyscian Attest: I have completed the full history and physcial and agree with above dictation, dictated as a scribe
[2020-06-16] MEDS ORDERED: MORPHINE SULFATE IR 15 MG TABLET PO PRN (18:23)
[2020-06-16] MEDS: SENNOSIDES-DOCUSATE SODIUM 1 EACH TAB PO SCH (20:27)
[2020-06-16] MEDS: polyethylene glycoL 3350 17 GM POWD.PACK PO SCH (20:27)
[2020-06-16] MEDS: MORPHINE SULFATE ER 15 MG TABLET PO SCH (23:57)
[2020-06-17] MEDS: PIPERACILLIN-TAZOBACTAM 3.375 GM in SODIUM CHLORIDE 0.9% 100 ML IVPB SCH ×4 (00:01→23:00)
[2020-06-17] MEDS: HYDROmorphone 0.5 MG/0.5 ML SYRINGE IVP PRN ×4 (00:01→16:43)
[2020-06-17] MEDS: KETOROLAC 15 MG/ML 1 ML VIAL IVP PRN ×3 (02:52→18:56)
[2020-06-17] MEDS: PANTOPRAZOLE 40 MG/10 ML VIAL IVP SCH (08:15)
[2020-06-17] MEDS: SODIUM CHLORIDE 0.9% 1,000 ML IV SCH (08:17)
[2020-06-17 08:20] LABS: Reticulocyte % 2.5 % (0.5-2.0)
[2020-06-17] MEDS: MORPHINE SULFATE ER 15 MG TABLET PO SCH ×3 (08:20→23:00)
[2020-06-17] MEDS: SENNOSIDES-DOCUSATE SODIUM 1 EACH TAB PO SCH ×2 (08:20→20:08)
[2020-06-17] MEDS: HEPARIN SODIUM,PORCINE 5,000 UNIT/ML 1 ML VIAL SQ SCH (08:20)
--- NOTE | 2020-06-17 11:28 | P.PN ---
Subjective This is a pleasant 59 years old male with history of rectal cancer since 2017 status post colectomy status ileostomy with reversal. Status post amanda moradiotherapy. Other chronic medical problems include GERD, osteoarthritis and chronic low back pain, iron deficiency anemia. Patient was admitted on 06/14 for abdominal pain, has been evaluated by surgery's team and they recommended conservative management Also patient is on chronic narcotic medication however he was asking to keep the Dilaudid, when Dilaudid was stopped he got upset and he stopped talking on refusing blood work on examination. Because of that attending was switched and they came to see the patient. Patient was crying in pain stating that he has chronic abdominal pain for more than a year about 5/10+ minus, however for a week he has pain about 10/10, he denies gross patient as he states he has 5-6 bowel movement even today with decent amount as per patient. Patient was refusing blood work he was refusing examination because he was asking specifically about Dilaudid, I explained the risks of these opioid medication including but not limited to the risk of respiratory depression and/or and he verbalized understanding and acceptance. Patient can start him on small dose of 0.5 every 4 hours and then tapered down to his level of home narcotics with [place] 10 mg 2 tablets every 6 hours as needed and he agrees. On examination her abdomen looks soft but gene ralized tenderness. CAT scan of the abdomen on admission showing no bowel obstruction. Colonic fecal stasis. Rectosigmoid metallic stent. Concentric soft tissue mass at the distal aspect of the stent suspicious for neoplasm. No significant change from most recent CT pain is periumbilical, moderate in severity, nonspecific in character, surgery team already on the case and they recommended no surgical intervention. We are going to consult oncology team as he follows up with Dr. guerrero office follow-up as an outpatient MAPS was checked today and he was taken [place] 10-[address] guerrero, his last prescription was from 05/31/20. Objective - Vital Signs Vital signs: Vital Signs Temp 98.0 F 06/16/20 07:00 Pulse 78 06/16/20 07:00 Resp 18 06/16/20 03:18 BP 129/85 06/16/20 07:00 Pulse Ox 98 06/16/20 07:00 Intake & Output 06/15/20 06/16/2006/16/20 18:59 06:59 18:59 Intake Total 200 Balance 200 Intake: Oral 200 Other: Voiding Method Toilet Toilet # Voids 1 2 - Exam GENERAL: The patient is alert and oriented x3, not in any acute distress. Obese HEENT: Pupils are round and equally reacting to light. EOMI. No scleral icterus. No conjunctival pallor. Normocephalic, atraumatic. No pharyngeal erythema. No thyromegaly. CARDIOVASCULAR: S1 and S2 present. No murmurs, rubs, or gallops. PULMONARY: Chest is clear to auscultation, no wheezing or crackles. -ABDOMEN: Soft, generalized mild abdominal tenderness with no guarding or rebound tenderness, nontender, nondistended, normoactive bowel sounds. No palpable organomegaly. MUSCULOSKELETAL: No joint swelling or deformity. EXTREMITIES: No cyanosis, clubbing, or pedal edema. NEUROLOGICAL: Gross neurological examination did not reveal any focal deficits. SKIN: No rashes. no petechiae. - Labs CBC & Chem 7: 06/15/20 06:10 06/16/20 13:13 Labs: Microbiology - Last 24 Hours (Table) 06/14/20 20:52 Blood Culture - Preliminary Blood No Growth after 24 hours Assessment and Plan Assessment: -Abdominal pain with evidence of bowel obstruction and fecal states he's on CAT scan, surgery team R following the case closely. Continue with IV fluid and antibiotic -Evidence of concentrated soft tissue mass by the end of the rectal stent, consult oncology -rectal cancer since 2017 status post colectomy status ileostomy with reversal. Status post chemoradiotherapy -Noneadherance therapy -GERD -Osteoarthritis DVT prophylaxis: Heparin GI prophylaxis: Protonix Prognosis is guarded
--- NOTE | 2020-06-17 11:36 | P.PN ---
Subjective This is a pleasant 59 years old male with history of rectal cancer since 2017 status post colectomy status ileostomy with reversal. Status post amanda moradiotherapy. Other chronic medical problems include GERD, osteoarthritis and chronic low back pain, iron deficiency anemia. Patient was admitted on 06/14 for abdominal pain, has been evaluated by surgery's team and they recommended conservative management Also patient is on chronic narcotic medication however he was asking to keep the Dilaudid, when Dilaudid was stopped he got upset and he stopped talking on refusing blood work on examination. Because of that attending was switched and they came to see the patient. Patient was crying in pain stating that he has chronic abdominal pain for more than a year about 5/10+ minus, however for a week he has pain about 10/10, he denies gross patient as he states he has 5-6 bowel movement even today with decent amount as per patient. Patient was refusing blood work he was refusing examination because he was asking specifically about Dilaudid, I explained the risks of these opioid medication including but not limited to the risk of respiratory depression and/or and he verbalized understanding and acceptance. Patient can start him on small dose of 0.5 every 4 hours and then tapered down to his level of home narcotics with [place] 10 mg 2 tablets every 6 hours as needed and he agrees. On examination her abdomen looks soft but gene ralized tenderness. CAT scan of the abdomen on admission showing no bowel obstruction. Colonic fecal stasis. Rectosigmoid metallic stent. Concentric soft tissue mass at the distal aspect of the stent suspicious for neoplasm. No significant change from most recent CT pain is periumbilical, moderate in severity, nonspecific in character, surgery team already on the case and they recommended no surgical intervention. We are going to consult oncology team as he follows up with Dr. guerrero office follow-up as an outpatient MAPS was checked today and he was taken [place] 10-[address] guerrero, his last prescription was from 05/31/20. 06/17/2020 Patient is awake and alert, he still complaining of from loose bowel movement about 5-6 times but I think thus related to have bowel obstruction however we will check for C. diff He clinically looks same as yesterday. We told the patient that we're going to taper his Dilaudid down to every 8 hours Hemodynamically stable Refused labs by patient but I talked to him and he agrees to do the blood work today and they're pending. Also patient refusing some of his medication Lexapro 10 is heparin, explained the risk and benefits for him Oncology input is appreciated and I going to review the CT of the abdomen and pelvis for persistent soft tissue area to see if this is progressed from prior imaging and for evaluation of recurrence of malignancy Objective - Vital Signs Vital signs: Vital Signs Temp 98.1 F 06/16/20 13:54 Pulse 83 06/16/20 13:54 Resp 17 06/16/20 13:54 BP 114/73 06/16/20 13:54 Pulse Ox 97 06/16/20 13:54 Intake & Output 06/15/20 06/16/20 06/16/20 18:59 06:59 18:59 Intake Total 200 Balance 200 Intake: Oral 200 Other: Voiding Method Toilet Toilet # Voids 1 2 1 # Bowel Movements 1 - Exam GENERAL: The patient is alert and oriented x3, not in any acute distress. Obese HEENT: Pupils are round and equally reacting to light. EOMI. No scleral icterus. No conjunctival pallor. Normocephalic, atraumatic. No pharyngeal erythema. No thyromegaly. CARDIOVASCULAR: S1 and S2 present. No murmurs, rubs, or gallops. PULMONARY: Chest is clear to auscultation, no wheezing or crackles. -ABDOMEN: Soft, generalized mild abdominal tenderness with no guarding or rebound tenderness, nontender, nondistended, normoactive bowel sounds. No palpable organomegaly. MUSCULOSKELETAL: No joint swelling or deformity. EXTREMITIES: No cyanosis, clubbing, or pedal edema. NEUROLOGICAL: Gross neurological examination did not reveal any focal deficits. SKIN: No rashes. no petechiae. - Labs CBC & Chem 7: 06/15/20 06:10 06/16/20 13:13 Labs: Abnormal Lab Results - Last 24 Hours (Table) 06/16/20 Range/Units 13:13 Sodium 129 L (137-145) mmol/L Calcium 7.9 L (8.4-10.2) mg/dL Microbiology - Last 24 Hours (Table) 06/14/20 20:52 Blood Culture - Preliminary Blood No Growth after 24 hours Assessment and Plan Assessment: -Abdominal pain with evidence of bowel obstruction and fecal states he's on CAT scan, surgery team R following the case closely. Continue with IV fluid and antibiotic -Evidence of concentrated soft tissue mass by the end of the rectal stent, consult oncology for the going to review the CT with radiology team to see any evidence of recurrent cancer -rectal cancer since 2017 status post colectomy status ileostomy with reversal. Status post chemoradiotherapy -Noneadherance therapy, I talked to the patient is still refuses some of the medication however he agrees for Eliquis for DVT prophylaxis and the labs from today -GERD -Osteoarthritis DVT prophylaxis: Heparin, patient refused the subcutaneous heparin however he agrees for Eliquis 2.5 for DVT prophylaxis after explained the risks and benefits for him GI prophylaxis: Protonix Prognosis is guarded
[2020-06-17] MEDS: APIXABAN 2.5 MG TABLET PO SCH ×2 (12:12→20:08)
[2020-06-17 14:59] LABS: Ferritin 127.1 ng/mL (22.0-322.0)
[2020-06-17 15:39] LABS: % Iron Saturation 3.92 (15.00-50.00); African American GFR (CKD) 109.5 (60.0-200.0); Anion Gap 6.4 mmol/L (4.00-12.00); BUN/Creat Ratio 16.67 Ratio (12.00-20.00); Calcium 8.5 mg/dL (8.7-10.3); Carbon Dioxide 27.6 mmol/L (21.6-31.8); Non-African American GFR(CKD) 94.5 (60.0-200.0); Potassium 3.8 mmol/L (3.5-5.5)
--- NOTE | 2020-06-17 17:28 | P.PN ---
Subjective Progress Note Date: 06/17/20 Principal diagnosis: pain Objective - Vital Signs Vital signs: Vital Signs Temp 98.4 F 06/17/20 15:00 Pulse 84 06/17/20 15:00 Resp 20 06/17/20 15:00 BP 117/74 06/17/20 15:00 Pulse Ox 96 06/17/20 15:00 Intake & Output 06/16/20 06/17/20 06/17/20 18:59 06:59 18:59 Intake Total 800 Balance 800 Intake: Intake, IV Titration 800 Amount Sodium Chloride 0.9% 1, 800 000 ml @ 50 mls/hr IV . Q20H [facility] Rx#:[id number] Other: Voiding Method Toilet Toilet # Voids 1 2 2 # Bowel Movements 1 - Exam - Constitutional General appearance: cooperative, no acute distress - EENT Eyes: EOMI, PERRLA ENT: NA/AT, normal oropharynx - Neck Neck: normal ROM - Respiratory Respiratory: bilateral: diminished (bibasilar) - Cardiovascular Rhythm: regular Heart sounds: normal: S1, S2 - Gastrointestinal ostomy with fecal material General gastrointestinal: distended, tenderness - Integumentary Integumentary: pale - Neurologic Neurologic: CNII-XII intact - Musculoskeletal Musculoskeletal: generalized weakness, strength equal bilaterally - Psychiatric Psychiatric: A&O x's 3, appropriate affect, intact judgment & insight - Labs CBC & Chem 7: 06/15/20 06:10 06/17/20 07:45 Labs: Abnormal Lab Results - Last 24 Hours (Table) 06/17/20 06/17/20 Range/Units 07:45 07:45 Retic Count 2.5 H (0.5-2.0) % Sodium 133 L (135-145) mmol/L Calcium 8.5 L (8.7-10.3) mg/dL Iron 10 L (65-175) ug/dL % Saturation 3.92 L (15.00-50.00) Microbiology - Last 24 Hours (Table) 06/14/20 20:52 Blood Culture - Preliminary Blood No Growth after 48 hours Assessment and Plan (1) Abdominal pain Current Visit: Yes Status: Acute Code(s): R10.9 - UNSPECIFIED ABDOMINAL PAIN SNOMED Code(s): 35223610 (2) Hyponatremia Current Visit: Yes Status: Acute Code(s): E87.1 - HYPO-OSMOLALITY AND HYPONATREMIA SNOMED Code(s): 19837417 (3) BMI 40.0-44.9, adult Current Visit: No Status: Acute Code(s): Z68.41 - BODY MASS INDEX [BMI]40.0- 44.9, ADULT SNOMED Code(s): 479226768 (4) Chronic pain syndrome Current Visit: No Status: Acute Code(s): G89.4 - CHRONIC PAIN SYNDROME SNOMED Code(s): 179841201 (5) Constipation Current Visit: No Status: Acute Code(s): K59.00 - CONSTIPATION, UNSPECIFIED SNOMED Code(s): 70113234 (6) History of creation of ostomy Current Visit: No Status: Acute Code(s): Z93.9 - ARTIFICIAL OPENING STATUS, UNSPECIFIED SNOMED Code(s): 359252709 (7) History of rectal cancer Current Visit: No Status: Acute Code(s): Z85.048 - PRSNL HX OF MALIG NEOPLM OF RECTUM, RECTOSIG JUNCT, AND ANUS SNOMED Code(s): 842373165 Plan: Recurrent hospitalizations for pain related to surgical intervention needed at time of cancer diagnosis. Overall me Sevilla has a picture of chronic pain and will require further outpatient pain managment. He will need referral to outpatient pain managment to continue on treatment options and superintendent container terminal management as this is does not appear to be progressive cancer, but rather pain that is chronic from prior surgical intervention needed. Cont long acting MS Contin Increase Bowel Regimen Continue on [place] as currently prescribed, although if not controlling for immediate relief will try oxycodone. Re-evaluate after MS Contin intiated. Anemia: - Component iron deficiency likely absorption - supp PET scan as outpatient Surgery possible GI work-up if possible? Physician Attest: I have completed the full history and physicial and agree with above dictation, dictated as a scribe
[2020-06-17] MEDS: SODIUM FERRIC GLUCONAT-SUCROSE 125 MG in SODIUM CHLORIDE 0.9% 100 ML IVPB SCH (17:58)
[2020-06-17] MEDS: polyethylene glycoL 3350 17 GM POWD.PACK PO SCH (20:08)
[2020-06-18] MEDS: HYDROmorphone 0.5 MG/0.5 ML SYRINGE IVP PRN ×2 (01:10→14:53)
[2020-06-18] MEDS: ONDANSETRON 4 MG/2 ML VIAL IVP PRN ×2 (01:10→09:01)
[2020-06-18] MEDS: KETOROLAC 15 MG/ML 1 ML VIAL IVP PRN (06:15)
[2020-06-18] MEDS: MORPHINE SULFATE ER 15 MG TABLET PO SCH (09:02)
[2020-06-18] MEDS: PANTOPRAZOLE 40 MG/10 ML VIAL IVP SCH (09:03)
[2020-06-18] MEDS: APIXABAN 2.5 MG TABLET PO SCH (09:03)
[2020-06-18] MEDS: SODIUM FERRIC GLUCONAT-SUCROSE 125 MG in SODIUM CHLORIDE 0.9% 100 ML IVPB SCH (09:03)
[2020-06-18] MEDS: PIPERACILLIN-TAZOBACTAM 3.375 GM in SODIUM CHLORIDE 0.9% 100 ML IVPB SCH ×2 (09:04→15:57)
[2020-06-18] MEDS: SENNOSIDES-DOCUSATE SODIUM 1 EACH TAB PO SCH (09:04)
--- NOTE | 2020-06-18 14:15 | P.PN ---
Subjective Progress Note Date: 06/18/20 CHIEF COMPLAINT: Abdominal pain HISTORY OF PRESENT ILLNESS: Patient evaluated for abdominal pain. No evidence of bowel Obstruction on CAT scan. There was evidence of fecal stasis. Patient refused soapsuds enema. He does report having bowel movement. Past bowel movement was yesterday morning. He is currently on a full liquid diet. Denies any nausea or vomiting. Still reporting abdominal pain that is not controlled with current pain medication. Initially patient had been refusing MS Contin. He has started to take it. But is still complaining of abdominal pain. Afebrile. WBC 5.0 PHYSICAL EXAM: VITAL SIGNS: Reviewed. GENERAL: Well-developed in no acute distress. HEENT: No sclera icterus. Extraocular movements grossly intact. Moist buccal mucosa. Head is atraumatic, normocephalic. No nasal drainage. ABDOMEN: Soft. Nondistended. NEUROLOGIC: Alert and oriented. Cranial nerves II through XII grossly intact. ASSESSMENT: 1. Abdominal pain no evidence of Bowel obstruction on CAT scan. 2. Moderate mid to distal colonic fecal stasis Noted on computed tomography scan 3. Morbid obesity 4. History of rectal cancer status post lower anterior resection with chemo and radiation treatment 5. History of bowel obstruction with diverting loop colostomy. Status post reversal of colostomy in February 2020 at [facility] PLAN: -Continue full liquid diet -Recommend that patient follows up with his surgeon out of [facility] Physician Professional Development Instructor note has been reviewed by physician. Signing provider agrees with the documented findings, assessment, and plan of care. Objective - Vital Signs Vital signs: Vital Signs Temp 99.4 F 06/18/20 06:55 Pulse 84 06/18/20 08:00 Resp 17 06/18/20 08:00 BP 128/86 06/18/20 06:55 Pulse Ox 96 06/18/20 06:55 Intake & Output 06/17/20 06/18/20 06/18/20 18:59 06:59 18:59 Intake Total 1200 Balance 1200 Intake: Intake, IV Titration 900 Amount Sodium Chloride 0.9% 1, 800 000 ml @ 50 mls/hr IV . Q20H [facility] Rx#:[id number] Sodium Ferric Gluconat- 100 Sucrose 125 mg In Sodium Chloride 0.9% 100 ml @ 100 mls/hr IVPB DAILY [facility] Rx#:[id number] Oral 300 Other: Voiding Method Toilet Toilet Toilet # Voids 2 2 - Labs CBC & Chem 7: 06/15/20 06:10 06/17/20 07:45 Labs: Abnormal Lab Results - Last 24 Hours (Table) 06/17/20 Range/Units 07:45 Sodium 133 L (135-145) mmol/L Calcium 8.5 L (8.7-10.3) mg/dL Iron 10 L (65-175) ug/dL % Saturation 3.92 L (15.00-50.00) Microbiology - Last 24 Hours (Table) 06/14/20 20:52 Blood Culture - Preliminary Blood No Growth after 72 hours
[2020-06-18 15:19] VITALS: BP 128/84; PULSE 97; RESP 17; TEMP 99.1
[2020-06-18 15:36] LABS: ALT 7 U/L (4-49); AST 13 U/L (17-59); African American GFR (CKD) >90 (>60 ml/min/1.73 sqM); Albumin 2.8 g/dL (3.5-5.0); Alkaline Phosphatase 41 U/L (38-126); Anion Gap 4 mmol/L; Blood Urea Nitrogen 12 mg/dL (9-20); Calcium 8.6 mg/dL (8.4-10.2); Carbon Dioxide 25 mmol/L (22-30); Chloride 101 mmol/L (98-107); Globulin 2.8 g/dL; Glucose 110 mg/dL (74-99); Non-African American GFR(CKD) >90 (>60 ml/min/1.73 sqM); Potassium 3.8 mmol/L (3.5-5.1); Sodium 130 mmol/L (137-145); Total Bilirubin 0.5 mg/dL (0.2-1.3); Total Protein 5.6 g/dL (6.3-8.2)
[2020-06-18 15:57] LABS: Anisocytosis Slight; Basophils % (A) 0 %; Eosinophils # (A) 0.1 k/uL (0-0.7); Eosinophils % (A) 1 %; HCT 31.2 % (39.0-53.0); HGB 9.5 gm/dL (13.0-17.5); Hypochromasia Moderate; Lymphocytes # (A) 0.5 k/uL (1.0-4.8); Lymphocytes % (A) 14 %; MCHC 30.4 g/dL (31.0-37.0); MCV 85.4 fL (80.0-100.0); Mean Platelet Volume 6.4; Monocytes # (A) 0.4 k/uL (0-1.0); Monocytes % (A) 13 %; Neutrophils # (A) 2.3 k/uL (1.3-7.7); Neutrophils % (A) 69 %; Platelet Count 191 k/uL (150-450); RBC 3.65 m/uL (4.30-5.90); RDW 16.7 % (11.5-15.5); WBC 3.3 k/uL (3.8-10.6)
--- NOTE | 2020-06-18 18:03 | PN ---
PROGRESS NOTE DATE OF SERVICE: 06/18/2020 This 59-year-old gentleman admitted with abdominal pain also had an abnormal CT scan. The patient is on empiric medications. The patient is also complaining of severe pain. Surgery and Gastroenterology are following the patient closely. Past medical history reviewed. REVIEW OF SYSTEMS: CARDIOVASCULAR SYSTEM: No angina, palpitations. RESPIRATORY SYSTEM: As mentioned earlier. GI: As mentioned earlier. : No dysuria or retention. NERVOUS SYSTEM: No numbness, weakness. CURRENT MEDICATIONS: Reviewed. They include [place], Eliquis, iron sulfate, MS-IR, MS Contin, Protonix. Doses of medication noted. PHYSICAL EXAMINATION: The patient is alert, oriented x3. Pulse is 84, blood pressure 128/83, respirations 17, temperature 99.4, pulse ox 96% on room air. HEENT: Conjunctivae normal. NECK: No jugular venous distention. CARDIOVASCULAR SYSTEM: S1, S2 muffled. RESPIRATORY SYSTEM: Breath sounds diminished at the bases. A few scattered rhonchi and crackles. ABDOMEN: Soft. Mild diffuse discomfort. No palpitations. No guarding. No rigidity. No mass palpable. Obese. LEGS: No edema. No swelling. NERVOUS SYSTEM: No focal deficit. LABS: WBC 3.3, hemoglobin 9.5. Sodium is 130. ASSESSMENT: 1. Diffuse abdominal pain, possibly secondary to bowel obstruction and fecal stasis. 2. Evidence of soft tissue mass in the rectal stent. 3. History of rectal cancer. 4. History of nonradiation therapy. 5. Gastroesophageal reflux disease. 6. Degenerative joint disease. RECOMMENDATIONS AND DISCUSSION: I recommend to continue current medications, continue symptomatic treatment. As mentioned earlier, would recommend a gastroenterology consultation and further evaluation, including possible endoscopies. Prognosis extremely guarded because of the multiple complex medical issues. Further recommendations to follow. MMODL / IJN: [id number] /
--- NOTE | 2020-06-18 22:22 | P.PN ---
Subjective Progress Note Date: 06/18/20 Principal diagnosis: pain Patient seen today and he was upset that his IV dilaudid was decreased and plan was trying to convert to PO for planning of discharge for tomorrow. ALthough patient has refused care and recommendations this hospitalization and is planning on leaving AMA at this time. He was provided a long acting morphine during hospitalization to assist with increased pain episode although he states the only help is 1mg dilaudid every 2-3 hours, when this was decreased he declined further treatment and stay. Objective - Vital Signs Vital signs: Vital Signs Temp 99.1 F 06/18/20 15:00 Pulse 97 06/18/20 15:00 Resp 17 06/18/20 15:00 BP 128/84 06/18/20 15:00 Pulse Ox 96 06/18/20 15:00 Intake & Output 06/18/20 06/18/20 06/19/20 06:59 18:59 06:59 Intake Total 1200 200 Balance 1200 200 Intake: Intake, IV Titration 900 200 Amount Piperacillin-Tazobactam 3 100 .375 gm In Sodium Chloride 0.9% 100 ml @ 25 mls/hr IVPB Q8HR [facility] Rx# :[id number] Sodium Chloride 0.9% 1, 800 000 ml @ 50 mls/hr IV . Q20H [facility] Rx#:[id number] Sodium Ferric Gluconat- 100 100 Sucrose 125 mg In Sodium Chloride 0.9% 100 ml @ 100 mls/hr IVPB DAILY [facility] Rx#:[id number] Oral 300 Other: Voiding Method Toilet Toilet # Voids 2 - Exam - Constitutional General appearance: cooperative, no acute distress - EENT Eyes: EOMI, PERRLA ENT: NA/AT, normal oropharynx - Neck Neck: normal ROM - Respiratory Respiratory: bilateral: diminished (bibasilar) - Cardiovascular Rhythm: regular Heart sounds: normal: S1, S2 - Gastrointestinal ostomy with fecal material General gastrointestinal: distended, tenderness - Integumentary Integumentary: pale - Neurologic Neurologic: CNII-XII intact - Musculoskeletal Musculoskeletal: generalized weakness, strength equal bilaterally - Psychiatric Psychiatric: A&O x's 3, appropriate affect, intact judgment & insight - Labs CBC & Chem 7: 06/18/20 14:58 06/18/20 14:58 Labs: Abnormal Lab Results - Last 24 Hours (Table) 06/18/20 06/18/20 06/18/20 Range/Units 14:58 14:58 14:58 WBC 3.3 L (3.8-10.6) k/uL RBC 3.65 L (4.30-5.90) m/uL Hgb 9.5 L (13.0-17.5) gm/dL Hct 31.2 L (39.0-53.0) % MCHC 30.4 L (31.0-37.0) g/dL RDW 16.7 H (11.5-15.5) % Lymphocytes # 0.5 L (1.0-4.8) k/uL Sodium 130 L (137-145) mmol/L Glucose 110 H (74-99) mg/dL AST 13 L (17-59) U/L C-Reactive Protein 86.5 H (<10.0) mg/L Total Protein 5.6 L (6.3-8.2) g/dL Albumin 2.8 L (3.5-5.0) g/dL Microbiology - Last 24 Hours (Table) 06/14/20 20:52 Blood Culture - Preliminary Blood No Growth after 72 hours Assessment and Plan (1) Abdominal pain Status: Acute Code(s): R10.9 - UNSPECIFIED ABDOMINAL PAIN SNOMED Code(s): 65655694 (2) Hyponatremia Status: Acute Code(s): E87.1 - HYPO-OSMOLALITY AND HYPONATREMIA SNOMED Code(s): 03267510 (3) BMI 40.0-44.9, adult Status: Acute Code(s): Z68.41 - BODY MASS INDEX [BMI]40.0-44.9, ADULT SNOMED Code(s): 708024258 (4) Chronic pain syndrome Status: Acute Code(s): G89.4 - CHRONIC PAIN SYNDROME SNOMED Code(s): 222438378 (5) Constipation Status: Acute Code(s): K59.00 - CONSTIPATION, UNSPECIFIED SNOMED Code(s): 98450531 (6) History of creation of ostomy Status: Acute Code(s): Z93.9 - ARTIFICIAL OPENING STATUS, UNSPECIFIED SNOMED Code(s): 407040699 (7) History of rectal cancer Status: Acute Code(s): Z85.048 - PRSNL HX OF MALIG NEOPLM OF RECTUM, RECTOSIG JUNCT, AND ANUS SNOMED Code(s): 189338115 Plan: Recurrent hospitalizations for pain related to surgical intervention needed at time of cancer diagnosis. Overall me Sevilla has a picture of chronic pain and will require further outpatient pain managment. He will need referral to outpatient pain managment to continue on treatment options and long-term manage ment as this is does not appear to be progressive cancer, but rather pain that is chronic from prior surgical intervention needed. Cont long acting MS Contin Increase Bowel Regimen Continue on [place] as currently prescribed, although if not controlling for immediate relief will try oxycodone. Re-evaluate after MS Contin intiated. Anemia: - Component iron deficiency likely absorption - supp PET scan as outpatient Surgery possible GI work-up if possible? Patient is leaving AMA Pain medication education provided although still reluctant to listen and understand Advised chronic pain services after discharge.
--- NOTE | 2020-06-19 08:12 | DS ---
DISCHARGE SUMMARY DATE OF SERVICE: 06/18/2020 FINAL DIAGNOSES: 1. Abdominal pain possibly secondary to bowel obstruction with fecal stasis. 2. Concentrated soft tissue mass in the end of the rectal stent. 3. History of rectal cancer. 4. History of nonradiation therapy. 5. Gastroesophageal reflux disease. 6. Degenerative joint disease. DISCHARGE DISPOSITION: The patient left the hospital AGAINST MEDICAL ADVICE. HISTORY OF PRESENT ILLNESS: This 59-year-old gentleman with past medical history of multiple medical problems admitted with multiple medical issues as mentioned earlier. Patient in significant pain. Gastroenterology was consulted, but however the patient left the hospital AGAINST MEDICAL ADVICE. The prognosis was extremely guarded throughout hospitalization. Please refer to the multiple progress notes and consults for more information. MMODL / IJN: [id number] /
--- NOTE | 2020-06-22 06:13 | CDI ---
Documentation Clarification Form Date: 06/22/2020 04:59:00 AM From: Sudha Carter Phone: If you have a question about this query, please contact Reyna Francisco, Tow Boat Captain at [phone] between 8am and 5pm. Admit Date: 06/14/2020 05:59:00 PM Patient Name: Jose Sevilla Visit Number: [id number] Discharge Date: 06/18/2020 04:17:00 PM ATTENTION: The Clinical Documentation Specialists (CDI) and [facility] Coding Staff appreciate your assistance in clarifying documentation. Please respond to the clarification below the line at the bottom and electronically sign. The CDI & [facility] Coding staff will review the response and follow-up if needed. Please note: Queries are made part of the Legal Health Record. If you have any questions, please contact the author of this message via ITS. Dr. Antonina Rodriguez H and P documents Upper abdominal pain, possible acute cholecystitis with possible sepsis POA. The diagnosis of sepsis not carried through chart. Please clarify if patient had sepsis or was it ruled out. History/Risk Factors: Rectal stent, abdominal pain, history of rectal cancer hx of radiation/chemo, fecal stasis and incontinence of stool. WBC 8.4 Lactic acid: 3.1 Vitals signs on admission: 98.8 F, 119 bpm., 143/85, 97 RA Treatment: Oxycodone continue on [place], soapsuds enema, liquid diet In your professional opinion, please clarify if patient had sepsis documented in H and P or was this ruled out. Condition Sepsis ruled out SIRS, without underlying infectious process Sepsis Severe Sepsis Other, please specify Unable to determine SIRS Criteria (2 or more of the following may indicate SIRS): -Temperature < 96.8F (36C) or > 101.0F (38.3C) -Heart Rate > 90 bpm -Respiratory Rate > 20 breaths/min or PaCO2 < 32 mmHg -White Blood Cell Count > 12,000 or < 4,000 cells/mm3 or > 10% bands -Lactate >2.0 mmol/L (>4.0 is equivalent to septic shock) Unable to determine MTDD
--- NOTE | 2020-06-22 06:23 | CDI ---
Documentation Clarification Form Date: 06/22/2020 05:13:00 AM From: Sudha Carter Phone: If you have a question about this query, please contact Reyna Francisco Inshore Undersea Warfare Officer at [phone] between 8am and 5pm. Admit Date: 06/14/2020 05:59:00 PM Patient Name: Jose Sevilla Visit Number: [id number] Discharge Date: 06/18/2020 04:17:00 PM ATTENTION: The Clinical Documentation Specialists (CDI) and [facility] Coding Staff appreciate your assistance in clarifying documentation. Please respond to the clarification below the line at the bottom and electronically sign. The CDI & [facility] Coding staff will review the response and follow-up if needed. Please note: Queries are made part of the Legal Health Record. If you have any questions, please contact the author of this message via ITS. Dr. Antonina Rodriguez The patient presented with severe abdominal pain. H and P documents possible acute cholecystitis with sepsis POA. Acute cholecystitis not carried through to [facility]. Please clarify if patient had acute cholecystitis. History/Risk Factors: History of rectal cancer with rectal stent. Colostomy with reversal Radiology findings: Gallbladder ultrasound sludge. Findings are equivocal for acute cholecystitis. Vital Signs: 98.8 F 119 bpm, 20, 143/85, 97% RA In your professional opinion, can you please clarify if patient had acute cholecystitis or was it ruled out? Acute cholecystitis Acute cholecystitis ruled out Other, please specify Unable to determine Acute cholecystitis ruled out MTDD
== END 2020-06-18 16:17 | disposition left against medical advice (07) | DRG 389 ==
LOC: EC 15:01 → 4SSUR 17:59
PROVIDERS: ADMIT Hospitalist; ATTEND Hospitalist
DX: K56.41 Fecal impaction (principal); Z68.42 Body mass index [BMI] 45.0-49.9, adult; E87.1 Hypo-osmolality and hyponatremia; K62.4 Stenosis of anus and rectum; K62.89 Other specified diseases of anus and rectum; Z85.048 Personal history of other malignant neoplasm of rectum, rectosigmoid junction, and anus; E66.01 Morbid (severe) obesity due to excess calories; G89.4 Chronic pain syndrome; K21.9 Gastro-esophageal reflux disease without esophagitis; M16.11 Unilateral primary osteoarthritis, right hip; M47.9 Spondylosis, unspecified; G62.9 Polyneuropathy, unspecified; R15.9 Full incontinence of feces; Z79.891 Long term (current) use of opiate analgesic; Z80.0 Family history of malignant neoplasm of digestive organs; Z82.49 Family history of ischemic heart disease and other diseases of the circulatory system; Z83.3 Family history of diabetes mellitus; Z87.891 Personal history of nicotine dependence; Z90.49 Acquired absence of other specified parts of digestive tract; Z92.21 Personal history of antineoplastic chemotherapy; Z92.3 Personal history of irradiation; Z91.81 History of falling; D50.8 Other iron deficiency anemias; Z90.89 Acquired absence of other organs; Z60.2 Problems related to living alone
CPT/HCPCS: 36415; 71046; 74018; 74176; 76705; 80048; 80053; 81003; 82378; 82607; 82728; 83540; 83550; 83605; 83615; 83690; 83921; 84484; 85025; 85045; 85610; 85652; 85730; 86140; 87040; 93005; 96361; 96374; 96375; 96376; 99285

== ENCOUNTER 2020-06-25 04:47 | Observation (INO) | payer OTHER ==
[2020-06-25] MEDS ORDERED: SODIUM CHLORIDE 0.9% 1,000 ML IV STA ×2 (04:57)
[2020-06-25] MEDS ORDERED: SODIUM CHLORIDE 0.9% 500 ML 500 ML IV STA (04:57)
[2020-06-25] MEDS ORDERED: ONDANSETRON 4 MG/2 ML VIAL IVP STA (04:57)
[2020-06-25] MEDS ORDERED: MORPHINE SULFATE 4 MG/ML SYRINGE IV STA (04:57)
[2020-06-25] MEDS ORDERED: HYDROmorphone 1 MG/ML 1 ML SYRINGE IVP STA ×2 (05:02→06:15)
[2020-06-25] MEDS ORDERED: HYDROmorphone 1 MG/ML 1 ML SYRINGE IVP PRN (05:02)
--- NOTE | 2020-06-25 05:15 | ED ---
Nausea/Vomiting/Diarrhea HPI - General Chief complaint: Nausea/Vomiting/Diarrhea Stated complaint: SOB, Vomiting Time Seen by Provider: 06/25/20 04:49 Source: patient, RN notes reviewed, old records reviewed Mode of arrival: ambulatory Limitations: no limitations - History of Present Illness Initial comments: This 59-year-old male DF for evaluation patient is 2 hours of severe abdominal pain nausea vomiting. Patient has multiple ER visits for similar complaints. Complex surgical history with significant cancer ostomy repeat surgeries. No fevers. The persistent nausea vomiting with abdominal pain. These are symptoms that he has had an the past MD complaint: nausea, vomiting, diarrhea, abdominal pain -: days(s) Description of Vomiting: watery, bilious Description of Diarrhea: water Associated Abdominal Pain: Yes Location: diffuse Radiation: none Severity: moderate Severity scale (1-10): 4 Quality: cramping, aching Consistency: constant Improves with: none Worsens with: none Associated Symptoms: chest pain, loss of appetite, nausea/vomiting, weakness - Related Data Home Medications Medication Instructions Recorded Confirmed Triamterene/Hydrochlorothiazid 1 tab PO DAILY 10/08/19 06/25/20 [Triamterene-Hctz 37.5-25 mg Tb] Docusate [Colace] 100 mg PO DAILY PRN 12/14/19 06/25/20 Famotidine [Pepcid] 20 mg PO BID PRN 05/11/20 06/25/20 Ondansetron [Zofran ODT] 4 mg PO DAILY PRN 05/27/20 06/25/20 Previous Rx's Medication Instructions Recorded HYDROcodone/APAP 10-325MG [[place] 2 tab PO Q6H PRN #16 tab 12/26/19 10-325] Morphine Sulfate ER [Ms Contin] 15 mg PO Q8H 14 Days #42 tab 06/25/20 Allergies Allergy/AdvReac Type Severity Reaction Status Date / Time No Known Allergies Allergy Verified 06/25/20 07:40 Review of Systems ROS Statement: Those systems with pertinent positive or pertinent negative responses have been documented in the HPI. ROS Other: All systems not noted in ROS Statement are negative. Past Medical History Past Medical History: Cancer, GERD/Reflux, Osteoarthritis (OA) Additional Past Medical History / Comment(s): Pt admitted to [facility] on 12/01/19 with a fall/struck R side abdomin/abdominal pain/vomiting/decrease ostomy function/incisional abdominal hernia. Other hx: Rectal cancer 2017 with colectomy/ileostomy then reversal/chemo pills and radiation, partial colonic obstruction-pt sent to [place] and had diverting loop colostomy, chronic low back pain, arthritis in multiple joints, neuropathy bilateral feet/toes and R hand, iron deficiency anemia. History of Any Multi-Drug Resistant Organisms: None Reported Past Surgical History: Appendectomy, Bowel Resection, Orthopedic Surgery, Tonsillectomy Additional Past Surgical History / Comment(s): Colectomy/ileostomy with reversal, diverting loop colostomy, colonoscopies, L elbow bursa surgery, double hernia repair Past Anesthesia/Blood Transfusion Reactions: No Reported Reaction Past Psychological History: No Psychological Hx Reported Smoking Status: Never smoker Past Alcohol Use History: Rare Past Drug Use History: None Reported - Past Family History Mother Family Medical History: Cancer, Diabetes Mellitus Additional Family Medical History / Comment(s): from liver cancer Father Family Medical History: Myocardial Infarction ([place]) Additional Family Medical History / Comment(s): Pt has not spoken to his father in years and does not know much of his medical hx. General Exam Limitations: no limitations General appearance: alert, in no apparent distress Head exam: Present: atraumatic, normocephalic, normal inspection Eye exam: Present: normal appearance, PERRL, EOMI. Absent: scleral icterus, conjunctival injection, periorbital swelling ENT exam: Present: normal exam, mucous membranes moist Neck exam: Present: normal inspection. Absent: tenderness, meningismus, lymphadenopathy Respiratory exam: Present: normal lung sounds bilaterally. Absent: respiratory distress, wheezes, rales, rhonchi, stridor Cardiovascular Exam: Present: normal rhythm, tachycardia, normal heart sounds. Absent: systolic murmur, diastolic murmur, rubs, gallop, clicks GI/Abdominal exam: Present: soft, tenderness, normal bowel sounds. Absent: distended, guarding, rebound, rigid Extremities exam: Present: normal inspection, full ROM, normal capillary refill. Absent: tenderness, pedal edema, joint swelling, calf tenderness Back exam: Present: normal inspection Neurological exam: Present: alert, oriented X3, CN II-XII intact Psychiatric exam: Present: normal affect, normal mood Skin exam: Present: warm, dry, intact, normal color. Absent: rash Course Vital Signs 06/25/20 06/25/20 04:51 06:13 Temperature 98.5 F Pulse Rate 131 H 100 Respiratory 20 18 Rate Blood Pressure 134/74 128/80 O2 Sat by Pulse 98 98 Oximetry - Reevaluation(s) Reevaluation #1: Medical record is reviewed patient does have improvement of symptoms in the ER, well-known to the ER Patient informed of findings and results, questions are answered Patient will be admitted for further evaluation Medical Decision Making - Medical Decision Making 89 male was facility for severe abdominal pain. Patient is cancer pain abdominal pain. Patient is ileus on x-ray. Patient be admitted for symptomatic treatment - Lab Data Result diagrams: 06/25/20 05:18 06/25/20 05:18 Lab Results 06/25/20 06/25/20 06/25/20 Range/Units 05:18 05:18 05:18 WBC 6.9 (3.8-10.6) k/uL RBC 4.20 L (4.30-5.90) m/uL Hgb 10.8 L (13.0-17.5) gm/dL Hct 35.5 L (39.0-53.0) % MCV 84.5 (80.0-100.0) fL MCH 25.8 (25.0-35.0) pg MCHC 30.5 L (31.0-37.0) g/dL RDW 16.3 H (11.5-15.5) % Plt Count 445 D (150-450) k/uL Neutrophils % 81 % Lymphocytes % 9 % Monocytes % 8 % Eosinophils % 1 % Basophils % 0 % Neutrophils # 5.5 (1.3-7.7) k/uL Lymphocytes # 0.6 L (1.0-4.8) k/uL Monocytes # 0.6 (0-1.0) k/uL Eosinophils # 0.1 (0-0.7) k/uL Basophils # 0.0 (0-0.2) k/uL Hypochromasia Slight Anisocytosis Slight Sodium 131 L (137-145) mmol/L Potassium 4.2 (3.5-5.1) mmol/L Chloride 99 (98-107) mmol/L Carbon Dioxide 22 (22-30) mmol/L Anion Gap 10 mmol/L BUN 20 (9-20) mg/dL Creatinine 0.81 (0.66-1.25) mg/dL Est GFR (CKD-EPI)AfAm >90 (>60 ml/min/1.73 sqM) Est GFR (CKD-EPI)NonAf >90 (>60 ml/min/1.73 sqM) Glucose 151 H (74-99) mg/dL Plasma Lactic Acid Gerry 1.6 (0.7-2.0) mmol/L Calcium 9.5 (8.4-10.2) mg/dL Phosphorus 4.1 (2.5-4.5) mg/dL Magnesium 1.9 (1.6-2.3) mg/dL Total Bilirubin 0.8 (0.2-1.3) mg/dL AST 26 (17-59) U/L ALT 10 (4-49) U/L Alkaline Phosphatase 62 (38-126) U/L Creatine Kinase 25 L (55-170) U/L Troponin I (0.000-0.034) ng/mL NT-Pro-B Natriuret Pep pg/mL Total Protein 7.2 (6.3-8.2) g/dL Albumin 3.5 (3.5-5.0) g/dL 06/25/20 06/25/20 Range/Units 05:18 05:18 WBC (3.8-10.6) k/uL RBC (4.30-5.90) m/uL Hgb (13.0-17.5) gm/dL Hct (39.0-53.0) % MCV (80.0-100.0) fL MCH (25.0-35.0) pg MCHC (31.0-37.0) g/dL RDW (11.5-15.5) % Plt Count (150-450) k/uL Neutrophils % % Lymphocytes % % Monocytes % % Eosinophils % % Basophils % % Neutrophils # (1.3-7.7) k/uL Lymphocytes # (1.0-4.8) k/uL Monocytes # (0-1.0) k/uL Eosinophils # (0-0.7) k/uL Basophils # (0-0.2) k/uL Hypochromasia Anisocytosis Sodium (137-145) mmol/L Potassium (3.5-5.1) mmol/L Chloride (98-107) mmol/L Carbon Dioxide (22-30) mmol/L Anion Gap mmol/L BUN (9-20) mg/dL Creatinine (0.66-1.25) mg/dL Est GFR (CKD-EPI)AfAm (>60 ml/min/1.73 sqM) Est GFR (CKD-EPI)NonAf (>60 ml/min/1.73 sqM) Glucose (74-99) mg/dL Plasma Lactic Acid Gerry (0.7-2.0) mmol/L Calcium (8.4-10.2) mg/dL Phosphorus (2.5-4.5) mg/dL Magnesium (1.6-2.3) mg/dL Total Bilirubin (0.2-1.3) mg/dL AST (17-59) U/L ALT (4-49) U/L Alkaline Phosphatase (38-126) U/L Creatine Kinase (55-170) U/L Troponin I <0.012 (0.000-0.034) ng/mL NT-Pro-B Natriuret Pep 326 pg/mL Total Protein (6.3-8.2) g/dL Albumin (3.5-5.0) g/dL - EKG Data -: EKG Interpreted by Me (AG sinus tach 103 TX 132 QRS 88 QTc 437) - Radiology Data Radiology results: report reviewed (X-ray abdominal series shows positive ileus, GALLBLADDER IS POSITIVE FOR POSITIVE CHOLECYSTITIS), image reviewed Disposition Clinical Impression: Morbid obesity due to excess calories, Abdominal pain, Nausea & vomiting, Intractable abdominal pain, Vomiting, Ileus, Chronic pain syndrome, Cholecystitis Disposition: ADMITTED IP TO THIS HOSP Condition: Fair Is patient prescribed a controlled substance at d/c from ED?: No
[2020-06-25 05:52] LABS: Anisocytosis Slight; Basophils % (A) 0 %; Eosinophils # (A) 0.1 k/uL (0-0.7); Eosinophils % (A) 1 %; HCT 35.5 % (39.0-53.0); HGB 10.8 gm/dL (13.0-17.5); Hypochromasia Slight; Lymphocytes # (A) 0.6 k/uL (1.0-4.8); Lymphocytes % (A) 9 %; MCH 25.8 pg (25.0-35.0); MCHC 30.5 g/dL (31.0-37.0); MCV 84.5 fL (80.0-100.0); Mean Platelet Volume 6.5; Monocytes # (A) 0.6 k/uL (0-1.0); Monocytes % (A) 8 %; Neutrophils # (A) 5.5 k/uL (1.3-7.7); Neutrophils % (A) 81 %; RDW 16.3 % (11.5-15.5); WBC 6.9 k/uL (3.8-10.6)
[2020-06-25 05:53] LABS: Platelet Count 445 k/uL (150-450)
[2020-06-25 05:56] LABS: ALT 10 U/L (4-49); AST 26 U/L (17-59); African American GFR (CKD) >90 (>60 ml/min/1.73 sqM); Albumin 3.5 g/dL (3.5-5.0); Alkaline Phosphatase 62 U/L (38-126); Anion Gap 10 mmol/L; Blood Urea Nitrogen 20 mg/dL (9-20); Calcium 9.5 mg/dL (8.4-10.2); Carbon Dioxide 22 mmol/L (22-30); Chloride 99 mmol/L (98-107); Creatine Kinase 25 U/L (55-170); Glucose 151 mg/dL (74-99); Magnesium 1.9 mg/dL (1.6-2.3); Non-African American GFR(CKD) >90 (>60 ml/min/1.73 sqM); Phosphorus 4.1 mg/dL (2.5-4.5); Sodium 131 mmol/L (137-145); Total Bilirubin 0.8 mg/dL (0.2-1.3); Total Protein 7.2 g/dL (6.3-8.2)
--- NOTE | 2020-06-25 06:16 | XR ---
EXAM: XR Abdomen, 2 Views and XR Chest, 1 View CLINICAL HISTORY: ITS.REASON XR Reason: pain TECHNIQUE: Frontal view of the chest, frontal view of the abdomen/pelvis and upright or decubitus view of the abdomen. COMPARISON: 06/14/2020 FINDINGS: Lungs: Unremarkable. No consolidation. Pleural space: Unremarkable. No pneumothorax. Heart: Unremarkable. No cardiomegaly. Mediastinum: Unremarkable. Intraperitoneal space: Multiple interposed dilated air filled bowel loops under the hemidiaphragms. Gastrointestinal tract: Dilated air-filled small and large bowel loops with colon measuring up to 8.5 cm paucity of air or stool in the distal colon and stent in place in the mid-pelvis. Bones/joints: Severe degenerative changes of the right hip with subchondral cysts and extensive remodeling of the right acetabular roof. IMPRESSION: Dilated air-filled small and large bowel loops with paucity of air or stool in the distal colon and stent in place in the mid-pelvis which may be due to bowel obstruction. CT may be obtained for more sensitive evaluation of a transition point if clinically indicated.
[2020-06-25 06:21] LABS: Potassium 4.2 mmol/L (3.5-5.1)
--- NOTE | 2020-06-25 07:43 | P.EN ---
Patient admitted under our service from ED, and came to see the patient this morning however he wants a different doctor as he signed AMA from our service about one week ago Discussed with the staff and bedside nurse to Contact physician bus and sys integration senior manager to transfer service
--- NOTE | 2020-06-25 09:30 | P.GSCN ---
History of Present Illness Consult date: 06/25/20 Reason for Consult: Abdominal pain History of present illness: This is a 59-year-old male who was admitted through the emergency room with comp laints of abdominal and. Patient has an extensive surgical history with previous colon resection reversal colostomy and then rectal stent placement. His surgeon is at [facility]. The patient has had multiple admissions through the emergency room for abdominal pain. Patient requires narcotics. Currently being treated by Dr. guerrero. The patient states that he is not follow-up at [place] because he does not like his doctor there. He is asking for pain medication. Past Medical History Past Medical History: Cancer, GERD/Reflux, Hypertension, Osteoarthritis (OA) Additional Past Medical History / Comment(s): Pt admitted to [facility] on 12/01/19 with a fall/struck R side abdomin/abdominal pain/vomiting/decrease ostomy func tion/incisional abdominal hernia. Other hx: Rectal cancer 2017 with colectomy/ileostomy then reversal/chemo pills and radiation, partial colonic obstruction-pt sent to [place] and had diverting loop colostomy, chronic low back pain, arthritis in multiple joints, neuropathy bilateral feet/toes and R hand, iron deficiency anemia. History of Any Multi-Drug Resistant Organisms: None Reported Past Surgical History: Appendectomy, Bowel Resection, Orthopedic Surgery, Tonsillectomy Additional Past Surgical History / Comment(s): Colectomy/ileostomy with reversal, diverting loop colostomy, colonoscopies, L elbow bursa surgery, double hernia repair Past Anesthesia/Blood Transfusion Reactions: No Reported Reaction Past Psychological History: No Psychological Hx Reported Additional Psychological History / Comment(s): Pt resides in an apartment alone. Pt has a cane which he uses prn. He drives. Smoking Status: Former smoker Past Alcohol Use History: Rare Additional Past Alcohol Use History / Comment(s): Pt started smoking as a teen and quit in 1998. Past Drug Use History: None Reported - Past Family History Mother Family Medical History: Cancer, Diabetes Mellitus Additional Family Medical History / Comment(s): from liver cancer Father Family Medical History: Myocardial Infarction ([place]) Additional Family Medical History / Comment(s): Pt has not spoken to his father in years and does not know much of his medical hx. Medications and Allergies Home Medications Medication Instructions Recorded Confirmed Type Triamterene/Hydrochlorothiazid 1 tab PO DAILY 10/08/19 06/25/20 History [Triamterene-Hctz 37.5-25 mg Tb] Docusate [Colace] 100 mg PO DAILY PRN 12/14/19 06/25/20 History HYDROcodone/APAP 10-325MG [[place] 2 tab PO Q6H PRN #16 tab 12/26/19 06/25/20 Rx 10-325] Famotidine [Pepcid] 20 mg PO BID PRN 05/11/20 06/25/20 History Ondansetron [Zofran ODT] 4 mg PO DAILY PRN 05/27/20 06/25/20 History Allergies Allergy/AdvReac Type Severity Reaction Status Date / Time No Known Allergies Allergy Verified 06/25/20 07:40 Surgical - Exam Vital Signs Temp Pulse Resp BP Pulse Ox 98.5 F 131 H 20 134/74 98 06/25/20 04:51 06/25/20 04:51 06/25/20 04:51 06/25/20 04:51 06/25/20 04:51 - General well developed, no distress - Eyes PERRL - ENT normal pinna - Neck no masses - Respiratory normal expansion - Cardiovascular Rhythm: regular - Abdomen Mild tenderness throughout there is a well-healed laparotomy scar is Abdomen: soft Results - Labs 06/25/20 05:18 06/25/20 05:18 Abnormal Lab Results - Last 24 Hours (Table) 06/25/20 06/25/20 Range/Units 05:18 05:18 RBC 4.20 L (4.30-5.90) m/uL Hgb 10.8 L (13.0-17.5) gm/dL Hct 35.5 L (39.0-53.0) % MCHC 30.5 L (31.0-37.0) g/dL RDW 16.3 H (11.5-15.5) % Lymphocytes # 0.6 L (1.0-4.8) k/uL Sodium 131 L (137-145) mmol/L Glucose 151 H (74-99) mg/dL Creatine Kinase 25 L (55-170) U/L Diabetes panel 06/25/20 Range/Units 05:18 Sodium 131 L (137-145) mmol/L Potassium 4.2 (3.5-5.1) mmol/L Chloride 99 (98-107) mmol/L Carbon Dioxide 22 (22-30) mmol/L BUN 20 (9-20) mg/dL Creatinine 0.81 (0.66-1.25) mg/dL Glucose 151 H (74-99) mg/dL Calcium 9.5 (8.4-10.2) mg/dL AST 26 (17-59) U/L ALT 10 (4-49) U/L Alkaline Phosphatase 62 (38-126) U/L Total Protein 7.2 (6.3-8.2) g/dL Albumin 3.5 (3.5-5.0) g/dL Calcium panel 06/25/20 Range/Units 05:18 Calcium 9.5 (8.4-10.2) mg/dL Phosphorus 4.1 (2.5-4.5) mg/dL Albumin 3.5 (3.5-5.0) g/dL Pituitary panel 06/25/20 Range/Units 05:18 Sodium 131 L (137-145) mmol/L Potassium 4.2 (3.5-5.1) mmol/L Chloride 99 (98-107) mmol/L Carbon Dioxide 22 (22-30) mmol/L BUN 20 (9-20) mg/dL Creatinine 0.81 (0.66-1.25) mg/dL Glucose 151 H (74-99) mg/dL Calcium 9.5 (8.4-10.2) mg/dL Adrenal panel 06/25/20 Range/Units 05:18 Sodium 131 L (137-145) mmol/L Potassium 4.2 (3.5-5.1) mmol/L Chloride 99 (98-107) mmol/L Carbon Dioxide 22 (22-30) mmol/L BUN 20 (9-20) mg/dL Creatinine 0.81 (0.66-1.25) mg/dL Glucose 151 H (74-99) mg/dL Calcium 9.5 (8.4-10.2) mg/dL Total Bilirubin 0.8 (0.2-1.3) mg/dL AST 26 (17-59) U/L ALT 10 (4-49) U/L Alkaline Phosphatase 62 (38-126) U/L Total Protein 7.2 (6.3-8.2) g/dL Albumin 3.5 (3.5-5.0) g/dL Assessment and Plan Assessment: Chronic abdominal pain most likely related to his colon cancer. The patient is a complicated surgical patient. He apparently has fired Dr. Rodriguez's group. I have recommended he transferred himself to [facility] where his surgeons are. No surgical intervention is planned with myself.
--- NOTE | 2020-06-25 10:02 | US ---
EXAMINATION TYPE: US gallbladder DATE OF EXAM: 06/25/2020 COMPARISON: CT abdomen pelvis 06/15/2020. Ultrasound gallbladder 06/14/2020. CLINICAL HISTORY: Abdominal pain. EXAM MEASUREMENTS: Liver Length: 18.3 cm Gallbladder Wall: 0.2 cm CBD: 0.7 cm Right Kidney: 10.5 x 4.3 x 5.0 cm *overlying bowel gas and inability for patient to tolerate tests limits exam Pancreas: Obscured due to bowel gas. Liver: left lobe not imaged due to gas, intercostal imaging only, limited views demonstrate no discr ete abnormality. Gallbladder: Limited views of the gallbladder. Gallbladder sludge but no wall thickening or signific ant pericholecystic fluid seen, limited views. Joinery Machinist reports positive sonographic Lawrence sign. CBD: upper limits of normal at 7 mm. Right Kidney: No hydronephrosis. IMPRESSION: 1. Suboptimal visualization due to overlying bowel gas and patient body habitus. 2. Limited views of the gallbladder demonstrate biliary sludge with positive sonographic Lawrence sign. There is no gallbladder wall thickening or significant pericholecystic fluid. Findings are again equ ivocal for acute cholecystitis. If there is persistent clinical concern recommend nuclear medicine HI DA scan. 3. Common bile duct at upper limits of normal measuring 7 mm.
[2020-06-25] MEDS ORDERED: DOCUSATE 100 MG CAP PO PRN (10:52)
--- NOTE | 2020-06-25 10:55 | P.HPIM ---
History of Present Illness This is a pleasant 59 years old male with history of rectal cancer since 2017 status post colectomy status ileostomy with reversal. Status post chemoradiotherapy. Other chronic medical problems include GERD, osteoarthritis and chronic low back pain, iron deficiency anemia. Patient was admitted on 06/14 for abdominal pain, has been evaluated by surgery's team and they recommended conservative management, Last time patient was insistent on the 10 Dilaudid 1 mg every 2-3 hours, and when it was tapered down the patient got upset and left AMA, prior to that he refused care, examination and labs when his Dilaudid was stopped. This time he presents because of same abdominal pain, is across his middle abdomen going down to the rectum felt like sharp associated with vomiting several times and he cannot keep nothing down At that time MAPS was checked today and he was taken Monroe 10-[address] guerrero, his last prescription was from 05/31/20. MAPS was checked today, and he was prescribed 120 tablets for [address]Han bonds on 06/08 Also that time he has been evaluated by surgery team with no evidence of bowel obstruction per their evaluation and they recommended that the patient follow-up with his surgeon at [facility] [phone] However patient wants to make his own appointments upon discharge Vital signs stable, labs including CBC and BMP and liver enzymes were unremarkable except for mild hyponatremia with sodium 131, mild anemia with hemoglobin 10.8, which is at baseline, chronic lymphopenia Review of Systems Review of systems CONSTITUTIONAL: No fever, no malaise, no fatigue. HEENT: No recent visual problems or hearing problems. Denied any sore throat. CARDIOVASCULAR: No orthopnea, PND, no palpitations, no syncope. PULMONARY: No shortness of breath, no cough, no hemoptysis. GASTROINTESTINAL: No diarrhea, . Normoactive bowel sounds. NEUROLOGICAL: No headaches, no weakness, no numbness. HEMATOLOGICAL: Denies any bleeding or petechiae. GENITOURINARY: Denies any burning micturition, frequency, or urgency. MUSCULOSKELETAL/RHEUMATOLOGICAL: Denies any joint pain, swelling, or any muscle pain. ENDOCRINE: Denies any polyuria or polydipsia. Past Medical History Past Medical History: Cancer, GERD/Reflux, Hypertension, Osteoarthritis (OA) Additional Past Medical History / Comment(s): Pt admitted to [facility] on 12/01/19 with a fall/struck R side abdomin/abdominal pain/vomiting/decrease ostomy function/incisional abdominal hernia. Other hx: Rectal cancer 2017 with colectomy/ileostomy then reversal/chemo pills and radiation, partial colonic obstruction-pt sent to [facility] and had diverting loop colostomy, chronic low back pain, arthritis in multiple joints, neuropathy bilateral feet/toes and R hand, iron deficiency anemia. History of Any Multi-Drug Resistant Organisms: None Reported Past Surgical History: Appendectomy, Bowel Resection, Orthopedic Surgery, Tonsillectomy Additional Past Surgical History / Comment(s): Colectomy/ileostomy with reversal, diverting loop colostomy, colonoscopies, L elbow bursa surgery, double hernia repair Past Anesthesia/Blood Transfusion Reactions: No Reported Reaction Past Psychological History: No Psychological Hx Reported Additional Psychological History / Comment(s): Pt resides in an apartment alone. Pt has a cane which he uses prn. He drives. Smoking Status: Former smoker Past Alcohol Use History: Rare Additional Past Alcohol Use History / Comment(s): Pt started smoking as a teen and quit in 1998. Past Drug Use History: None Reported - Past Family History Mother Family Medical History: Cancer, Diabetes Mellitus Additional Family Medical History / Comment(s): from liver cancer Father Family Medical History: Myocardial Infarction ([place]) Additional Family Medical History / Comment(s): Pt has not spoken to his father in years and does not know much of his medical hx. Medications and Allergies Home Medications Medication Instructions Recorded Confirmed Type Triamterene/Hydrochlorothiazid 1 tab PO DAILY 10/08/19 06/25/20 History [Triamterene-Hctz 37.5-25 mg Tb] Docusate [Colace] 100 mg PO DAILY PRN 12/14/19 06/25/20 History HYDROcodone/APAP 10-325MG [Monroe 2 tab PO Q6H PRN #16 tab 12/26/19 06/25/20 Rx 10-325] Famotidine [Pepcid] 20 mg PO BID PRN 05/11/20 06/25/20 History Ondansetron [Zofran ODT] 4 mg PO DAILY PRN 05/27/20 06/25/20 History Allergies Allergy/AdvReac Type Severity Reaction Status Date / Time No Known Allergies Allergy Verified 06/25/20 07:40 Physical Exam Vitals: Vital Signs Temp Pulse Pulse Resp BP BP Pulse Ox 06/25/20 08:17 98.3 F 92 16 134/83 96 06/25/20 06:50 98.4 F 105 H 18 153/88 98 06/25/20 06:13 100 18 128/80 98 06/25/20 04:51 98.5 F 131 H 20 134/74 98 Intake and Output 06/24/20 06/25/20 06/25/20 22:59 06:59 14:59 Other: Voiding Method Toilet Weight 136.078 kg -GENERAL: The patient is alert and oriented x3, not in any acute distress. Morbidly obese HEENT: Pupils are round and equally reacting to light. EOMI. No scleral icterus. No conjunctival pallor. Normocephalic, atraumatic. No pharyngeal erythema. No thyromegaly. CARDIOVASCULAR: S1 and S2 present. No murmurs, rubs, or gallops. PULMONARY: Chest is clear to auscultation, no wheezing or crackles. -ABDOMEN: Soft, mild periumbilical tenderness, no rebound tenderness or guard ing, nondistended, normoactive bowel sounds. No palpable organomegaly. MUSCULOSKELETAL: No joint swelling or deformity. EXTREMITIES: No cyanosis, clubbing, or pedal edema. NEUROLOGICAL: Gross neurological examination did not reveal any focal deficits. SKIN: No rashes. no petechiae. Results CBC & Chem 7: 06/25/20 05:18 06/25/20 05:18 Labs: Abnormal Lab Results - Last 24 Hours (Table) 06/25/20 06/25/20 Range/Units 05:18 05:18 RBC 4.20 L (4.30-5.90) m/uL Hgb 10.8 L (13.0-17.5) gm/dL Hct 35.5 L (39.0-53.0) % MCHC 30.5 L (31.0-37.0) g/dL RDW 16.3 H (11.5-15.5) % Lymphocytes # 0.6 L (1.0-4.8) k/uL Sodium 131 L (137-145) mmol/L Glucose 151 H (74-99) mg/dL Creatine Kinase 25 L (55-170) U/L Thrombosis Risk Factor Assmnt - Choose All That Apply Each Factor Represents 1 point: Obesity (BMI >25), Swollen legs (current) Other congenital or acquired thrombophilia - If yes, enter type in comment: No Thrombosis Risk Factor Assessment Total Risk Factor Score: 2 Thrombosis Risk Factor Assessment Level: Low Risk Assessment and Plan Assessment: -Abdominal pain with evidence of no bowel obstruction and fecal states CAT scan (06/15), surgery team R following the case and indicated the patient for discharge and follow-up with his surgeon at [facility] patient agrees to continue taking his Monroe 10-325 mg, 2 tablets every 6 hours. I talked to the patient and he agrees not to prescribe IV Dilaudid for him this time -Recurrent nausea vomiting and inability to eat, continue IV fluids -Evidence of concentrated soft tissue mass by the end of the rectal stent, last time oncology team recommended PET scan as an outpatient -History of fecal stasis -History of rectal cancer since 2017 status post colectomy status post ileostomy with reversal. Status post chemoradiotherapy -Noneadherance therapy, I talked to the patient is still refuses some of the medication however he agrees for Eliquis for DVT prophylaxis and the labs from today -GERD -Osteoarthritis DVT prophylaxis: GI prophylaxis: Protonix Prognosis is guarded Disposition: Once patient nausea vomiting improve and able to eat, and once oncologist/thimble press operator team. The patient for discharge, we can discharge the patient and asked him to follow-up as an outpatient with his PCP, oncologist/ thimble press operator and his surgeon at [facility]
[2020-06-25] MEDS ORDERED: SODIUM CHLORIDE 0.9% 1,000 ML IV SCH (11:00)
[2020-06-25] MEDS: PANTOPRAZOLE 40 MG/10 ML VIAL IVP SCH (11:07)
[2020-06-25] MEDS: HYDROcodone/APAP 10-325MG 1 EACH TAB PO PRN ×3 (11:08→22:38)
[2020-06-25 11:44] LABS: Appearance,Urine Clear (Clear); Bilirubin,Urine Negative (Negative); Blood,Urine Negative (Negative); Color,Urine Yellow; Glucose,Urine (UA) Negative (Negative); Ketones,Urine Negative (Negative); Leukocyte Esterase,Urine Negative (Negative); Nitrite,Urine Negative (Negative); PH, Urine 5.5 (5.0-8.0); Protein,Urine Trace (Negative); Specific Gravity,Urine 1.028 (1.001-1.035); Urobilinogen,Urine <2.0 mg/dL (<2.0)
--- NOTE | 2020-06-25 12:21 | P.CONS ---
History of Present Illness - Reason for Consult Consult date: 06/25/20 History of Rectal cancer and Chronic Pain Requesting physician: Martin Sesay - Chief Complaint Pain - History of Present Illness Son presented to Dr Karissa Johnson for Colonoscopy after Cologuard testing was positive. He stated having few episodes of blood per rectum. 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 The patient denied constipation , changes in bowel habits or abdominal pain. He denied anorexia or weight loss. CT Scan of abdomen/pelvis (done at [facility] 08/16/17) was unremarkable. The patient denied having family history of Colorectal cancer, his mother of metastatic Pancreatic Ca. He smoked 2 PPD X 20 years, quit years ago, denied ETOH use. He is diabled due to chronic back & R hip pain attributed to severe DJD. 09/20/17: Had EUS (Dr Kearns [facility]) > T3N1 disease. Seen by Dr Guido at [facility]: High-risk for surgery. 10/31/17: Tolerating concurrent Radiation therapy/Xeloda very well. He was evaluated by Dr Ramirez at [facility] > will have Colonoscopy/EUS then surgery. 05/28/18: Had LAR on 01/09/2018 ( Dr Ramirez [facility])> T2 (3.1cm) No (0-18)Mo. He had SBO to follow, still having severe abdominal pain> on Methadone by pain clinic at [facility]. 12/03/18: C/O rapidly progressive diffuse abdominal pain. CT Scan revealed inflamatory process around stent. PET Scan negative for malignancy, CEA normal. Sleepy Eye 10 Q8 hours effective. 04/29/19: C/O stools incontinence thought to be 2nd to colonic stent. Attempts to remove stent by Dr Garnica failed. He continues to have intermitent abdominal pain, on Sleepy Eye 10 Q 6 hours PRN. 07/03/19: Feels well, continues to have stools incontinence. Loosing weight (Diet modification) 02/24/20: C/O persistent severe pelvic pain attributed to rectal stent, he wants stent removed and colostomy reversed, which he was told by Zelda Lawson & boby that it can't be done. He had incarcerated hernia surgery by Dr Lawson. CT scans in Sep & november 2019 did not show recurrences. He was recently admitted for the same and left AMA after attempting conversion to PO medications from his IV dilaudid. Last admission long acting MS contin added to regimen, when he left he did not receive this script. We recommended follow-up with chronic pain management services as outpatient, as well as, continue follow-up at [facility] with Dr. Garnica for any potential surgical intervention. He is not adherent to medical recommendations and last visit refused all intervention, stating he needs the IV dilaudid then it will improve and I will be fine on Sleepy Eye" Education regarding Extended release and follow-up with pain services as he has no definitive signs of recurrence or metastatic disease at this time. Recommendations for outpatient PET scan to ensure no recurrence. His flairs are recurrent. He also has component of iron deficiency anemia and IV iron x2 ordered. Review of Systems All systems: negative Constitutional: Reports as per HPI Past Medical History Past Medical History: Cancer, GERD/Reflux, Hypertension, Osteoarthritis (OA) Additional Past Medical History / Comment(s): Pt admitted to [facility] on 12/01/19 with a fall/struck R side abdomin/abdominal pain/vomiting/decrease ostomy func tion/incisional abdominal hernia. Other hx: Rectal cancer 2017 with colectomy/ileostomy then reversal/chemo pills and radiation, partial colonic obstruction-pt sent to [facility] and had diverting loop colostomy, chronic low back pain, arthritis in multiple joints, neuropathy bilateral feet/toes and R hand, iron deficiency anemia. History of Any Multi-Drug Resistant Organisms: None Reported Past Surgical History: Appendectomy, Bowel Resection, Orthopedic Surgery, Tonsillectomy Additional Past Surgical History / Comment(s): Colectomy/ileostomy with reversal, diverting loop colostomy, colonoscopies, L elbow bursa surgery, double hernia repair Past Anesthesia/Blood Transfusion Reactions: No Reported Reaction Past Psychological History: No Psychological Hx Reported Additional Psychological History / Comment(s): Pt resides in an apartment alone. Pt has a cane which he uses prn. He drives. Smoking Status: Former smoker Past Alcohol Use History: Rare Additional Past Alcohol Use History / Comment(s): Pt started smoking as a teen and quit in 1998. Past Drug Use History: None Reported - Past Family History Mother Family Medical History: Cancer, Diabetes Mellitus Additional Family Medical History / Comment(s): from liver cancer Father Family Medical History: Myocardial Infarction ([place]) Additional Family Medical History / Comment(s): Pt has not spoken to his father in years and does not know much of his medical hx. Medications and Allergies Home Medications Medication Instructions Recorded Confirmed Type Triamterene/Hydrochlorothiazid 1 tab PO DAILY 10/08/19 06/25/20 History [Triamterene-Hctz 37.5-25 mg Tb] Docusate [Colace] 100 mg PO DAILY PRN 12/14/19 06/25/20 History HYDROcodone/APAP 10-325MG [Sleepy Eye 2 tab PO Q6H PRN #16 tab 12/26/19 06/25/20 Rx 10-325] Famotidine [Pepcid] 20 mg PO BID PRN 05/11/20 06/25/20 History Ondansetron [Zofran ODT] 4 mg PO DAILY PRN 05/27/20 06/25/20 History Morphine Sulfate ER [Ms Contin] 15 mg PO Q8H 14 Days #42 tab 06/25/20 Rx Allergies Allergy/AdvReac Type Severity Reaction Status Date / Time No Known Allergies Allergy Verified 06/25/20 07:40 Physical Exam Vitals: Vital Signs Temp Pulse Pulse Resp BP BP Pulse Ox 06/25/20 08:17 98.3 F 92 16 134/83 96 06/25/20 06:50 98.4 F 105 H 18 153/88 98 06/25/20 06:13 100 18 128/80 98 06/25/20 04:51 98.5 F 131 H 20 134/74 98 Intake and Output 06/24/20 06/25/20 06/25/20 22:59 06:59 14:59 Other: Voiding Method Toilet Weight 136.078 kg - Exam - Constitutional General appearance: cooperative, no acute distress - EENT Eyes: EOMI, PERRLA ENT: NA/AT, normal oropharynx - Neck Neck: normal ROM - Respiratory Respiratory: bilateral: diminished (bibasilar) - Cardiovascular Rhythm: regular Heart sounds: normal: S1, S2 - Gastrointestinal ostomy with fecal material General gastrointestinal: distended, tenderness - Integumentary Integumentary: pale - Neurologic Neurologic: CNII-XII intact - Musculoskeletal Musculoskeletal: generalized weakness, strength equal bilaterally - Psychiatric Psychiatric: A&O x's 3, appropriate affect, intact judgment & insight Results CBC & Chem 7: 06/25/20 05:18 06/25/20 05:18 Labs: Abnormal Lab Results - Last 24 Hours (Table) 06/25/20 06/25/20 06/25/20 Range/Units 05:18 05:18 11:25 RBC 4.20 L (4.30-5.90) m/uL Hgb 10.8 L (13.0-17.5) gm/dL Hct 35.5 L (39.0-53.0) % MCHC 30.5 L (31.0-37.0) g/dL RDW 16.3 H (11.5-15.5) % Lymphocytes # 0.6 L (1.0-4.8) k/uL Sodium 131 L (137-145) mmol/L Glucose 151 H (74-99) mg/dL Creatine Kinase 25 L (55-170) U/L Urine Protein Trace H (Negative) CT scan - abdomen: report reviewed Assessment and Plan Plan: Recurrent hospitalizations for pain related to surgical intervention needed at time of cancer diagnosis. Overall me Sevilla has a picture of chronic pain and will require further outpatient pain managment. He will need referral to outpatient pain management to continue on treatment options and custodial management as this is does not appear to be progressive cancer, but rather pain that is chronic from prior surgical intervention needed. Chronic Pain with intermittent flares: Restart long acting MS Contin Chronic Constipation: Likely secondary to daily narcotic use Increase Bowel Regimen Continue on Sleepy Eye as currently prescribed, although if not controlling for immediate relief will try oxycodone. Re-evaluate after MS Contin intiated. Anemia: - Component iron deficiency likely absorption - supp IV ordered PET scan as outpatient to confirm no definitive recurrence Pain Services at discharge with Dr. Motley Long Acting MS Contin at discharge Increase bowel regimen Physcian Attest: I have completed the full history and physical and agree with above dictation and plan, dictated as a scribe.
[2020-06-25] MEDS: SODIUM FERRIC GLUCONAT-SUCROSE 125 MG in SODIUM CHLORIDE 0.9% 100 ML IVPB SCH (12:35)
[2020-06-25] MEDS: MORPHINE SULFATE ER 15 MG TABLET PO SCH ×2 (15:14→23:00)
[2020-06-25] MEDS: ONDANSETRON 4 MG/2 ML VIAL IVP PRN ×2 (15:17→22:58)
[2020-06-25] MEDS: SODIUM CHLORIDE 0.9% 1,000 ML IV SCH (15:51)
[2020-06-25] MEDS: SENNOSIDES-DOCUSATE SODIUM 1 EACH TAB PO SCH (20:02)
[2020-06-25] MEDS: HEPARIN SODIUM,PORCINE 5,000 UNIT/ML 1 ML VIAL SQ SCH (20:06)
[2020-06-26] MEDS: HYDROcodone/APAP 10-325MG 1 EACH TAB PO PRN ×4 (04:48→22:40)
[2020-06-26] MEDS: ONDANSETRON 4 MG/2 ML VIAL IVP PRN ×4 (04:51→22:40)
[2020-06-26] MEDS: MORPHINE SULFATE ER 15 MG TABLET PO SCH ×3 (07:41→23:22)
[2020-06-26] MEDS: SODIUM CHLORIDE 0.9% 1,000 ML IV SCH ×2 (07:43→18:49)
[2020-06-26] MEDS: SENNOSIDES-DOCUSATE SODIUM 1 EACH TAB PO SCH ×2 (08:34→20:52)
[2020-06-26] MEDS: HEPARIN SODIUM,PORCINE 5,000 UNIT/ML 1 ML VIAL SQ SCH ×3 (08:35→20:38)
[2020-06-26] MEDS: PANTOPRAZOLE 40 MG/10 ML VIAL IVP SCH (08:35)
[2020-06-26] MEDS ORDERED: TRIAMTERENE-HCTZ 37.5-25MG 1 EACH TAB PO SCH (09:00)
[2020-06-26] MEDS ORDERED: polyethylene glycoL 3350 17 GM POWD.PACK PO SCH (09:00)
[2020-06-26] MEDS: SODIUM FERRIC GLUCONAT-SUCROSE 125 MG in SODIUM CHLORIDE 0.9% 100 ML IVPB SCH (09:23)
[2020-06-26 15:32] VITALS: TEMP 98.4
--- NOTE | 2020-06-26 16:20 | P.PN ---
Subjective Progress Note Date: 06/26/20 CHIEF COMPLAINT: Abdominal pain HISTORY OF PRESENT ILLNESS: The patient is a 59-year-old male previous history of incarcerated incisional hernia, 12/16/2019 including multiple abdominal surgeries. He is admitted secondary to chronic abdominal pain. Per discussion with nurse, patient ran out of his pain medications and came to the hospital. "Only Dilaudid works!" He has not been seen by a pain specialist. ROS: No fevers or chills. No new chest pain. PHYSICAL EXAM: VITAL SIGNS: Reviewed CONSTITUTIONAL: Well developed and in no acute distress. EYES: Conjuctivae without sclera icterus. Extraocular movements grossly intact. HEAD, EARS, NOSE, THROAT: Moist buccal mucosa. Head is atraumatic, normocephalic. Hears conversational speech. No nasal drainage. NECK: Supple. No RESPIRATORY: Non-labored respirations and equal bilateral excursions. CARDIOVASCULAR: Palpable 2+ radial pulses. ABDOMEN: Patient holding abdomen. No peritonitis. MUSCULOSKELETAL: No gross deformity of the lower extremities noted. SKIN: Good skin turgor. Well perfused. NEUROLOGIC: Cranial nerves II through XII grossly intact. No focal or lateralizing signs. PSYCH: Appropriate affect. Alert and oriented to person, place and time. CLINICAL LABS: White blood cell count normal, 6.9. STUDIES: Ultrasound of the gallbladder independent review demonstrates poor penetration into the liver. Findings of small stones. No evidence of acute cholecystitis. ASSESSMENT: 1. History multiple abdominal surgeries 2. Personal history of rectal cancer with ostomy now reversed 3. Chronic pain needs 4. Gallbladder sludge PLAN: 1. Recommend pain specialist management with consultation 2. At this time no acute surgical intervention Objective - Vital Signs Vital signs: Vital Signs Temp 97.9 F 06/26/20 08:26 Pulse 87 06/26/20 08:26 Resp 18 06/26/20 08:26 BP 132/62 06/26/20 08:26 Pulse Ox 97 06/26/20 08:26 Intake & Output 06/25/20 06/26/20 06/26/20 18:59 06:59 18:59 Other: Voiding Method Toilet Toilet # Voids 1 1 1 - Labs CBC & Chem 7: 06/25/20 05:18 06/25/20 05:18 Assessment and Plan (1) Intractable abdominal pain Current Visit: Yes Status: Acute Code(s): R10.9 - UNSPECIFIED ABDOMINAL PAIN SNOMED Code(s): 85466439 (2) Morbid obesity due to excess calories Current Visit: Yes Status: Acute Code(s): E66.01 - MORBID (SEVERE) OBESITY DUE TO EXCESS CALORIES SNOMED Code(s): 184131825 (3) BMI 40.0-44.9, adult Current Visit: No Status: Acute Code(s): Z68.41 - BODY MASS INDEX [BMI]40.0- 44.9, ADULT SNOMED Code(s): 185445751 (4) Chronic pain syndrome Current Visit: No Status: Acute Code(s): G89.4 - CHRONIC PAIN SYNDROME SNOMED Code(s): 777192898
[2020-06-26 20:41] VITALS: BP 128/74; PULSE 86; RESP 15
--- NOTE | 2020-06-26 21:48 | P.PN ---
Subjective Progress Note Date: 06/26/20 Principal diagnosis: Chronic Pain Mr. Sevilla is a 59 years old male with history of rectal cancer since 2017 status post colectomy status ileostomy with reversal. Status post chemoradiotherapy. Other chronic medical problems include GERD, osteoarthritis and chronic low back pain, iron deficiency anemia. Patient was admitted on 06/14 for abdominal pain, has been evaluated by surgery's team and they recommended conservative management, Last time patient was insistent on the 10 Dilaudid 1 mg every 2-3 hours, and when it was tapered down the patient got upset and left AMA, prior to that he refused care, examination and labs when his Dilaudid was stopped. This time he presents because of same abdominal pain, is across his middle abdomen going down to the rectum felt like sharp associated with vomiting several times and he cannot keep nothing down At that time MAPS was checked today and he was taken [place] 10-[address] guerrero, his last prescription was from 05/31/20. MAPS was checked today, and he was prescribed 120 tablets for 15 days by on 06/08 Also that time he has been evaluated by surgery team with no evidence of bowel obstruction per their evaluation and they recommended that the patient follow-up with his surgeon at [place] [phone] However patient wants to make his own appointments upon discharge Vital signs stable, labs including CBC and BMP and liver enzymes were unremarkable except for mild hyponatremia with sodium 131, mild anemia with hemoglobin 10.8, which is at baseline, chronic lymphopenia. On 06/26/2020 -patient is comfortably lying in bed when I went to see him. Immediately after seeing me patient started to complain of abdominal pain and states that he is not getting enough of pain medications and that only Dilaudid works for his pain. Patient did not want to have any other conversation other than getting his Dilaudid. On reviewing his vitals have been stable and his labs from yesterday within normal range at his baseline. Active Medications Generic Name Dose Route Start Last Admin Trade Name Freq PRN Reason Stop Dose Admin Hydrocodone Bitart/Acetaminophen 2 each 06/25/20 10:52 06/26/20 22:40 Hydrocodone/Apap 10-325mg 1 Each Tab PO 2 each Q6H PRN Administration Pain Enoxaparin Sodium 40 mg 06/26/20 22:00 06/26/20 22:41 Enoxaparin 40 Mg/0.4 Ml Syringe SQ Not Given DAILY [facility] Sodium Chloride 1,000 mls @ 75 mls/hr 06/25/20 15:45 06/26/20 18:49 Saline 0.9% IV Not Given .[id number] JOY Morphine Sulfate 15 mg 06/25/20 16:00 06/26/20 23:22 Morphine Sulfate Er 15 Mg Tablet PO 15 mg Q8HR JOY Administration Ondansetron HCl 4 mg 06/25/20 06:05 06/26/20 22:40 Ondansetron 4 Mg/2 Ml Vial IVP 4 mg Q6HR PRN Administration Nausea And Vomiting Pantoprazole Sodium 40 mg 06/27/20 07:30 Pantoprazole 40 Mg Tablet PO AC-[id number] JOY Polyethylene Glycol 17 gm 06/26/20 09:00 06/26/20 08:35 Polyethylene Glycol 3350 17 Gm Powd.Pack PO Not Given DAILY JOY Senna/Docusate Sodium 2 each 06/25/20 21:00 06/26/20 20:52 Sennosides-Docusate Sodium 1 Each Tab PO 2 each BID JOY Administration Simethicone 80 mg 06/27/20 08:30 Simethicone 40 Mg/0.6 Ml Drops 2,000 Mg/30 Ml Bottle PO PCHS JOY Triamterene/HCTZ 1 each 06/26/20 09:00 06/26/20 08:34 Triamterene-Hctz 37.5-25mg 1 Each Tab PO 1 each DAILY JOY Administration Objective - Vital Signs Vital signs: Vital Signs Temp 97.9 F 06/26/20 08:26 Pulse 87 06/26/20 08:26 Resp 18 06/26/20 08:26 BP 132/62 06/26/20 08:26 Pulse Ox 97 06/26/20 08:26 Intake & Output 06/25/20 06/26/20 06/26/20 18:59 06:59 18:59 Other: Voiding Method Toilet Toilet # Voids 1 1 1 - Exam GENERAL: The patient is alert and oriented x3, not in any acute distress. Morbidly obese HEENT: Pupils are round and equally reacting to light. EOMI. No scleral icterus. No conjunctival pallor. Normocephalic, atraumatic. No pharyngeal erythema. No thyromegaly. CARDIOVASCULAR: S1 and S2 present. No murmurs, rubs, or gallops. PULMONARY: Chest is clear to auscultation, no wheezing or crackles. -ABDOMEN: Soft, mild periumbilical tenderness, no rebound tenderness or guarding, nondistended, normoactive bowel sounds. No palpable organomegaly. MUSCULOSKELETAL: No joint swelling or deformity. EXTREMITIES: No cyanosis, clubbing, or pedal edema. NEUROLOGICAL: Gross neurological examination did not reveal any focal deficits. SKIN: No rashes. no petechiae. - Labs CBC & Chem 7: 06/25/20 05:18 06/25/20 05:18 Assessment and Plan Assessment: Assessment: -Abdominal pain with evidence of no bowel obstruction and fecal states CAT scan (06/15), surgery team following the case and indicated the patient for d ischarge and follow-up with his surgeon at [place] patient agrees to continue taking his [place] 10-325 mg, 2 tablets every 6 hours. -Recurrent nausea vomiting and inability to eat, continue IV fluids -Evidence of concentrated soft tissue mass by the end of the rectal stent, last time oncology team recommended PET scan as an outpatient -History of fecal stasis -History of rectal cancer since 2017 status post colectomy status post ileostomy with reversal. Status post chemoradiotherapy -Noneadherance therapy -GERD -Osteoarthritis DVT prophylaxis:Lovenox GI prophylaxis: Protonix Prognosis is guarded Plan: Patient's pain seems to be chronic in nature. Patient's nausea and vomiting is improving currently. He will need outpatient follow-up with pain specialist for management of his chronic pain. Patient keeps refusing medications including DVT prophylaxis. Hematology/oncology evaluated the patient and recommended the same. Anticipate discharge in the next 24 hours.Follow-up as an outpatient with his PCP, oncologist/retail receiving clerk and his surgeon at [facility]
[2020-06-26] MEDS ORDERED: ENOXAPARIN 40 MG/0.4 ML SYRINGE SQ SCH (22:00)
[2020-06-27] MEDS: HYDROcodone/APAP 10-325MG 1 EACH TAB PO PRN (03:33)
[2020-06-27] MEDS: ONDANSETRON 4 MG/2 ML VIAL IVP PRN (03:36)
[2020-06-27] MEDS ORDERED: SIMETHICONE 40 MG/0.6 ML DROPS 2,000 MG/30 ML BOTTLE PO PRN (05:00)
[2020-06-27] MEDS ORDERED: PANTOPRAZOLE 40 MG TABLET PO SCH (07:30)
[2020-06-27] MEDS ORDERED: SIMETHICONE 40 MG/0.6 ML DROPS 2,000 MG/30 ML BOTTLE PO SCH (08:30)
== END 2020-06-27 07:00 | disposition left against medical advice (07) ==
LOC: EC 04:47 → 1SOBS 06:08
PROVIDERS: ADMIT Hospitalist; ATTEND Hospitalist
DX: R11.2 Nausea with vomiting, unspecified (principal); K62.5 Hemorrhage of anus and rectum; K21.9 Gastro-esophageal reflux disease without esophagitis; Z53.29 Procedure and treatment not carried out because of patient's decision for other reasons; M19.90 Unspecified osteoarthritis, unspecified site; G89.4 Chronic pain syndrome; M54.9 Dorsalgia, unspecified; Z96.89 Presence of other specified functional implants; D50.9 Iron deficiency anemia, unspecified; C18.9 Malignant neoplasm of colon, unspecified; G89.3 Neoplasm related pain (acute) (chronic); Z85.048 Personal history of other malignant neoplasm of rectum, rectosigmoid junction, and anus; E66.01 Morbid (severe) obesity due to excess calories; Z68.41 Body mass index [BMI] 40.0-44.9, adult; E87.1 Hypo-osmolality and hyponatremia; D72.810 Lymphocytopenia; Z92.21 Personal history of antineoplastic chemotherapy; Z92.3 Personal history of irradiation; G62.9 Polyneuropathy, unspecified; Z90.49 Acquired absence of other specified parts of digestive tract; Z98.890 Other specified postprocedural states; Z87.891 Personal history of nicotine dependence; Z80.0 Family history of malignant neoplasm of digestive organs; Z83.3 Family history of diabetes mellitus; Z82.49 Family history of ischemic heart disease and other diseases of the circulatory system; Z79.891 Long term (current) use of opiate analgesic; Z79.899 Other long term (current) drug therapy; I10 Essential (primary) hypertension; K81.9 Cholecystitis, unspecified; K82.8 Other specified diseases of gallbladder
CPT/HCPCS: 96361 ×3; 96365; 96366; 96375 ×2; 96376 ×4; 99285; 36415; 93005; 83880; 80053; 82550; 83605; 83735; 84100; 84484; 85025; 81003; 74022; 76705; G0378 ×3; J2405 ×3; J2916 ×2; J1170; C9113 ×2

== ENCOUNTER 2020-09-03 21:43 | Inpatient (IN) | payer OTHER ==
[2020-09-03] MEDS ORDERED: diphenhydrAMINE 50 MG/ML 1 ML VIAL IVP STA (22:01)
[2020-09-03] MEDS ORDERED: SODIUM CHLORIDE 0.9% 1,000 ML IV ONE (22:01)
[2020-09-03] MEDS ORDERED: HYDROmorphone 1 MG/ML 1 ML SYRINGE IVP STA ×2 (22:01→23:19)
[2020-09-03] MEDS ORDERED: ONDANSETRON 4 MG/2 ML VIAL IVP STA (22:01)
[2020-09-03 22:28] LABS: Basophils # (A) 0.1 k/uL (0-0.2); Basophils % (A) 1 %; Eosinophils # (A) 0.1 k/uL (0-0.7); Eosinophils % (A) 1 %; HCT 33.9 % (39.0-53.0); HGB 10.3 gm/dL (13.0-17.5); Lymphocytes # (A) 0.9 k/uL (1.0-4.8); Lymphocytes % (A) 12 %; MCH 25.5 pg (25.0-35.0); MCHC 30.3 g/dL (31.0-37.0); MCV 84.4 fL (80.0-100.0); Mean Platelet Volume 6.1; Monocytes # (A) 0.5 k/uL (0-1.0); Monocytes % (A) 7 %; Neutrophils # (A) 5.8 k/uL (1.3-7.7); Neutrophils % (A) 78 %; Platelet Count 438 k/uL (150-450); RBC 4.02 m/uL (4.30-5.90); RDW 14.9 % (11.5-15.5); WBC 7.5 k/uL (3.8-10.6)
[2020-09-03 22:32] LABS: ALT 13 U/L (4-49); AST 18 U/L (17-59); African American GFR (CKD) >90 (>60 ml/min/1.73 sqM); Albumin 3.8 g/dL (3.5-5.0); Alkaline Phosphatase 55 U/L (38-126); Anion Gap 9 mmol/L; Blood Urea Nitrogen 14 mg/dL (9-20); Calcium 9.7 mg/dL (8.4-10.2); Carbon Dioxide 24 mmol/L (22-30); Chloride 103 mmol/L (98-107); Glucose 119 mg/dL (74-99); Lipase 32 U/L (23-300); Non-African American GFR(CKD) >90 (>60 ml/min/1.73 sqM); Potassium 4.1 mmol/L (3.5-5.1); Sodium 136 mmol/L (137-145); Total Bilirubin 0.5 mg/dL (0.2-1.3); Total Protein 7.2 g/dL (6.3-8.2)
--- NOTE | 2020-09-03 22:59 | ED ---
Abdominal Pain HPI - General Chief Complaint: Abdominal Pain Stated Complaint: abd pain Time Seen by Provider: 09/03/20 21:49 Source: patient Mode of arrival: wheelchair Limitations: no limitations - History of Present Illness Initial Comments: 59-year-old male patient with past medical history significant for rectal cancer status post colectomy with placement of ileostomy with subsequent reversal, multiple hernia repairs, recent colostomy placement at [facility] presents to the emergency department today for evaluation of lower abdominal pain. Patient states the pain started 2-3 days ago. States he has been having vomiting. States he is unable to keep down any food or fluids. Denies any fever but states he has been chilled. States he has noticed more liquidy stools in his colostomy. Denies any hematemesis, hematochezia, or melena. Patient denies any recent rash, cough, shortness of breath, chest pain, back pain, numbness, tingling, dizziness, weakness, hematuria, dysuria, urinary urgency, urinary frequency, headache, visual changes, or any other complaints. - Related Data Home Medications Medication Instructions Recorded Confirmed Docusate [Colace] 100 mg PO DAILY PRN 12/14/19 09/03/20 Famotidine [Pepcid] 20 mg PO BID PRN 05/11/20 09/03/20 Ondansetron [Zofran ODT] 4 mg PO DAILY PRN 05/27/20 09/03/20 Triamterene-Hctz 37.5-25Mg 1 cap PO DAILY 09/03/20 09/03/20 [Dyazide 37.5-25 Capsule] Previous Rx's Medication Instructions Recorded HYDROcodone/APAP 10-325MG [[place] 2 tab PO Q6H PRN #16 tab 12/26/19 10-325] Allergies Allergy/AdvReac Type Severity Reaction Status Date / Time morphine Allergy Unknown Verified 09/03/20 22:38 Review of Systems ROS Statement: Those systems with pertinent positive or pertinent negative responses have been documented in the HPI. ROS Other: All systems not noted in ROS Statement are negative. Past Medical History Past Medical History: Cancer, GERD/Reflux, Osteoarthritis (OA) Additional Past Medical History / Comment(s): Pt admitted to [facility] on 12/01/19 with a fall/struck R side abdomin/abdominal pain/vomiting/decrease ostomy func tion/incisional abdominal hernia. Other hx: Rectal cancer 2017 with colectomy/ileostomy then reversal/chemo pills and radiation, partial colonic obstruction-pt sent to [place] and had diverting loop colostomy, chronic low back pain, arthritis in multiple joints, neuropathy bilateral feet/toes and R hand, iron deficiency anemia. History of Any Multi-Drug Resistant Organisms: None Reported Past Surgical History: Appendectomy, Bowel Resection, Orthopedic Surgery, Tonsillectomy Additional Past Surgical History / Comment(s): Colectomy/ileostomy with reversal, diverting loop colostomy, colonoscopies, L elbow bursa surgery, double hernia repair Past Anesthesia/Blood Transfusion Reactions: No Reported Reaction Past Psychological History: No Psychological Hx Reported Smoking Status: Never smoker Past Alcohol Use History: Rare Past Drug Use History: None Reported - Past Family History Mother Family Medical History: Cancer, Diabetes Mellitus Additional Family Medical History / Comment(s): from liver cancer Father Family Medical History: Myocardial Infarction ([place]) Additional Family Medical History / Comment(s): Pt has not spoken to his father in years and does not know much of his medical hx. General Exam Limitations: no limitations General appearance: alert, in no apparent distress, other (Physical well- developed, well-nourished adult male patient in no acute distress. Vital signs upon presentation are temperature 98.4F, pulse 114, respirations 20, blood pressure 141/77, pulse ox 97% on room air.) Eye exam: Present: normal appearance, PERRL, EOMI. Absent: scleral icterus, conjunctival injection, periorbital swelling ENT exam: Present: normal exam, normal oropharynx, mucous membranes moist Respiratory exam: Present: normal lung sounds bilaterally. Absent: respiratory distress, wheezes, rales, rhonchi, stridor Cardiovascular Exam: Present: regular rate, normal rhythm, normal heart sounds. Absent: systolic murmur, diastolic murmur, rubs, gallop, clicks GI/Abdominal exam: Present: soft, tenderness (Right lower and left lower quadrant tenderness), normal bowel sounds. Absent: distended, guarding, rebound, rigid Neurological exam: Present: alert, oriented X3, CN II-XII intact Psychiatric exam: Present: normal affect, normal mood Skin exam: Present: warm, dry, intact, normal color. Absent: rash Course Vital Signs 09/03/20 09/03/20 21:44 23:34 Temperature 98.4 F 98.4 F Pulse Rate 114 H 89 Respiratory 20 18 Rate Blood Pressure 141/77 133/79 O2 Sat by Pulse 97 97 Oximetry Medical Decision Making - Medical Decision Making 59 year-old male patient with history of rectal cancer s/p colectomy with ileostomy placement, subsequent reversal, and recent loop colostomy placement at [facility] about a month ago presents to the emergency department today for evaluation of abdominal pain and vomiting for the last 2-3 days. Physical examination did reveal lower abdominal tenderness. Labs reviewed and are relatively unremarkable. CT abdomen and pelvis was obtained and did show dilation of the small bowel up to 4 cm with no identified transition point consistent with ileus. This is a new finding on this patient's computed tomogra phy scan. Patient was given IV fluids, antiemetics, and pain medication. Upon reevaluation is resting comfortably in bed stating that his pain is no better. He is still reporting nausea. He does not a couple being discharged home for outpatient follow-up and requests to be admitted to the hospital. We will admit for IV fluids, he'll be nothing by mouth, pain medication will be given sparingly. - Lab Data Result diagrams: 09/03/20 22:05 09/03/20 22:05 Lab Results 09/03/20 09/03/20 Range/Units 22:05 22:05 WBC 7.5 (3.8-10.6) k/uL RBC 4.02 L (4.30-5.90) m/uL Hgb 10.3 L (13.0-17.5) gm/dL Hct 33.9 L (39.0-53.0) % MCV 84.4 (80.0-100.0) fL MCH 25.5 (25.0-35.0) pg MCHC 30.3 L (31.0-37.0) g/dL RDW 14.9 (11.5-15.5) % Plt Count 438 (150-450) k/uL MPV 6.1 Neutrophils % 78 % Lymphocytes % 12 % Monocytes % 7 % Eosinophils % 1 % Basophils % 1 % Neutrophils # 5.8 (1.3-7.7) k/uL Lymphocytes # 0.9 L (1.0-4.8) k/uL Monocytes # 0.5 (0-1.0) k/uL Eosinophils # 0.1 (0-0.7) k/uL Basophils # 0.1 (0-0.2) k/uL Sodium 136 L (137-145) mmol/L Potassium 4.1 (3.5-5.1) mmol/L Chloride 103 (98-107) mmol/L Carbon Dioxide 24 (22-30) mmol/L Anion Gap 9 mmol/L BUN 14 (9-20) mg/dL Creatinine 0.70 (0.66-1.25) mg/dL Est GFR (CKD-EPI)AfAm >90 (>60 ml/min/1.73 sqM) Est GFR (CKD-EPI)NonAf >90 (>60 ml/min/1.73 sqM) Glucose 119 H (74-99) mg/dL Calcium 9.7 (8.4-10.2) mg/dL Total Bilirubin 0.5 (0.2-1.3) mg/dL AST 18 (17-59) U/L ALT 13 (4-49) U/L Alkaline Phosphatase 55 (38-126) U/L Total Protein 7.2 (6.3-8.2) g/dL Albumin 3.8 (3.5-5.0) g/dL Lipase 32 (23-300) U/L - Radiology Data Radiology results: report reviewed, image reviewed CT abdomen and pelvis without contrast was obtained. Report was reviewed in its entirety. Impression by Dr. Ho shows dilated small bowels a change compared to old exam and probably due to small bowel ileus. No obstructing lesion seen. Disposition Clinical Impression: Ileus, Intractable abdominal pain Disposition: ADMITTED IP TO [facility] Condition: Serious Referrals: Josiah Connors DO [Primary Care Provider] - 1-2 days Decision to Admit Reason: Admit from EC Decision Date: 09/03/20 Decision Time: 23:38
--- NOTE | 2020-09-03 23:04 | CT ---
EXAMINATION TYPE: CT abdomen pelvis wo con DATE OF EXAM: 09/03/2020 COMPARISON: 06/15/2020 HISTORY: pain CT DLP: 1585 mGycm Automated exposure control for dose reduction was used. There is interposition of the hepatic flexure of the colon. There is previous surgery apparently at t he hepatic flexure of the colon. The lung bases are clear. There is no pleural effusion. There is no pericardial effusion. There is a posterior right side diaphragmatic hernia that contains fat. Unchang ed. Liver shows no focal defect. Gallbladder appears normal. Bile ducts are not dilated. Spleen is intact . The stomach is intact. There is no evidence of pancreatic mass. There is no adrenal mass. Kidneys have normal size. There is no hydronephrosis. Ureters are not dilat ed. There is no retroperitoneal adenopathy. There is a descending loop colostomy. There is previous s urgery in the rectosigmoid junction. There is a stent. Bladder distends smoothly. There is some perir ectal fluid and fat stranding. There are distended multiple gas and fluid-filled loops of small bowel in the mid abdomen. These meredith ure up to almost 4 cm. The large bowel is not dilated. I see no transition point. Lumbar vertebra have normal alignment. There is T12 anterior wedging of 25% that appears old. There i s narrowing of L5-S1 disc space with spurring. There is advanced osteoarthritis in the right hip join t. Unchanged. Bony pelvis is intact. IMPRESSION: Dilated small bowel is a change compared to old exam and probably due to small bowel ileus. No obstru cting lesion seen. There is a loop colostomy of the descending colon. There is a stent at the rectosigmoid junction unch anged. There is perirectal fat stranding and edema unchanged. Perirectal mass is possible. There is c learing of the constipation compared to old exam.
[2020-09-04] MEDS ORDERED: NALOXONE 0.4 MG/ML 1 ML VIAL IV PRN (00:25)
[2020-09-04] MEDS ORDERED: HYDROmorphone 1 MG/ML 1 ML SYRINGE IVP PRN (00:25)
[2020-09-04] MEDS: SODIUM CHLORIDE 0.9% 1,000 ML IV SCH ×3 (01:16→20:45)
[2020-09-04 02:51] LABS: Appearance,Urine Clear (Clear); Bilirubin,Urine Negative (Negative); Blood,Urine Negative (Negative); Color,Urine Yellow; Glucose,Urine (UA) Negative (Negative); Ketones,Urine Negative (Negative); Leukocyte Esterase,Urine Negative (Negative); Nitrite,Urine Negative (Negative); PH, Urine 6.5 (5.0-8.0); Protein,Urine Negative (Negative); Specific Gravity,Urine 1.018 (1.001-1.035); Urobilinogen,Urine <2.0 mg/dL (<2.0)
[2020-09-04] MEDS ORDERED: HYDROmorphone 1 MG/ML 1 ML SYRINGE IVP STA (03:07)
[2020-09-04] MEDS ORDERED: ONDANSETRON ODT 4 MG TAB PO PRN (03:09)
--- NOTE | 2020-09-04 03:24 | P.HPIM ---
History of Present Illness H&P Date: 09/03/20 Chief Complaint: intractable nausea and vomiting 59 year old male with history of rectal cancer post surgical removal , hypertension patient comes in complaining of couple day history of interactable nausea and vomiting, he has been unable to keep anything down . denies any associated fever, chills, or GI bleeding. he does report seeing occasional blood from his rectum mixed with mucus, but currently he has a colostomy, and only mucus is coming out of his rectum. he had multiple surgeries for his rectal cancer. most recent one about a month ago a [facility] by dr. Siegel for ileus , and revision of his rectal stent ended up with colostomy . his ostomoy output is diarrhea no blood, denies any coffee ground vomiting or hematamesis . however, he reports a lot of lower abd pain , chronic in nature, and he takes 2 tabs of norco 10-325 every 4-6 hours at home .without much control of his pain patient feels very sad, hopeless, lonely , denies suicidal ideation, he reports trouble sleeping due to pain. patient has been on disability due to back injury for many years now. he has no friends or family members around him blood work in the ED showed lactic acidosis and chronic anemia imaging showed dilated loops of bowel, ileus , colostomy loop descending bowel, and rectosegmoid junction stent Review of Systems Pertinent positives as noted in HPI. All other systems were reviewed and are negative Past Medical History Past Medical History: Cancer, GERD/Reflux, Osteoarthritis (OA) Additional Past Medical History / Comment(s): Pt admitted to [facility] on 12/01/19 with a fall/struck R side abdomin/abdominal pain/vomiting/decrease ostomy function/incisional abdominal hernia. Other hx: Rectal cancer 2017 with colectomy/ileostomy then reversal/chemo pills and radiation, partial colonic obstruction-pt sent to [place] and had diverting loop colostomy, chronic low back pain, arthritis in multiple joints, neuropathy bilateral feet/toes and R hand, iron deficiency anemia. History of Any Multi-Drug Resistant Organisms: None Reported Past Surgical History: Appendectomy, Bowel Resection, Orthopedic Surgery, Tonsillectomy Additional Past Surgical History / Comment(s): Colectomy/ileostomy with reversal, diverting loop colostomy, colonoscopies, L elbow bursa surgery, double hernia repair Past Anesthesia/Blood Transfusion Reactions: No Reported Reaction Past Psychological History: No Psychological Hx Reported Smoking Status: Never smoker Past Alcohol Use History: Rare Past Drug Use History: None Reported - Past Family History Mother Family Medical History: Cancer, Diabetes Mellitus Additional Family Medical History / Comment(s): from liver cancer Father Family Medical History: Myocardial Infarction ([place]) Additional Family Medical History / Comment(s): Pt has not spoken to his father in years and does not know much of his medical hx. Medications and Allergies Home Medications Medication Instructions Recorded Confirmed Type Docusate [Colace] 100 mg PO DAILY PRN 12/14/19 09/03/20 History HYDROcodone/APAP 10-325MG [[place] 2 tab PO Q6H PRN #16 tab 12/26/19 09/03/20 Rx 10-325] Famotidine [Pepcid] 20 mg PO BID PRN 05/11/20 09/03/20 History Ondansetron [Zofran ODT] 4 mg PO DAILY PRN 05/27/20 09/03/20 History Triamterene-Hctz 37.5-25Mg 1 cap PO DAILY 09/03/20 09/03/20 History [Dyazide 37.5-25 Capsule] Allergies Allergy/AdvReac Type Severity Reaction Status Date / Time morphine Allergy Unknown Verified 09/03/20 22:38 Physical Exam Vitals: Vital Signs Temp Pulse Resp BP Pulse Ox 09/03/20 23:34 98.4 F 89 18 133/79 97 09/03/20 21:44 98.4 F 114 H 20 141/77 97 Intake and Output 09/03/20 09/03/20 09/04/20 14:59 22:59 06:59 Other: Weight 136.078 kg Constitutional: No acute distress, tearful , depressed mood Eyes: Anicteric sclerae, moist conjunctiva, Pupils equal round reactive to light ENMT: NC/AT Oropharynx clear, no erythema, or exudates Neck: Supple, FROM, no masses, or JVD No carotid bruits No thyromegaly Lungs: Clear to auscultation Clear to percussion Normal respiratory effort, no accessory muscle use Cardiovascular: Heart regular in rate and rhythm, No murmurs, gallops, or rubs No peripheral edema Abdominal: Soft, colostomy bag over left LQ, with fecal content no blood slight discomfort to deep palpation of lower abd, no guarding, rebound or rigidity Abdomen moving with respiration Normoactive bowel sounds No hepatomegaly, No splenomegaly No palpable mass No abdominal wall hernia noted Skin: Normal temperature, tone, texture, turgor No induration No subcutaneous nodules No rash, lesions No ulcers Extremities: No digital cyanosis No clubbing Pedal pulses intact and symmetrical Radial pulses intact and symmetrical No calf tenderness Psychiatric: Alert and oriented to person, place and time depressed affect, tearful fair judgement Neuro Muscles Strength 4/5 in all 4 extremities Sensation to light touch grossly present throughout Cranial nerves II-XII grossly intact No focal sensory deficits Lymphatics: no palpable cervical or supraclavicular , or inguinal lymph nodes Results CBC & Chem 7: 09/03/20 22:05 09/03/20 22:05 Labs: Abnormal Lab Results - Last 24 Hours (Table) 09/03/20 09/03/20 Range/Units 22:05 22:05 RBC 4.02 L (4.30-5.90) m/uL Hgb 10.3 L (13.0-17.5) gm/dL Hct 33.9 L (39.0-53.0) % MCHC 30.3 L (31.0-37.0) g/dL Lymphocytes # 0.9 L (1.0-4.8) k/uL Sodium 136 L (137-145) mmol/L Glucose 119 H (74-99) mg/dL Assessment and Plan Assessment: intractable nausea and vomiting chronic abd pain history of rectal cancer lactic acidosis chronic anemia plan supportive care IVF hydration with normal saline symptomatic control of pain and nausea resume norco add dilaudid (patient is not tolerating PO) diet as tolerated gen surgery consutl due to concerns regarding pain at rectal stent sight, and for colostomy revision psych consult for depression resume BP meds CODE STATUS:full code DVT prophylaxis: mechanical Discussed with: Patient, ER, RN Anticipated length of stay < than [address]: home A total of 65 minutes was spent on the care of this complex patient more than 50% of the time was spent in counseling and care coordination.
[2020-09-04] MEDS: HYDROmorphone 1 MG/ML 1 ML SYRINGE IVP PRN ×6 (05:31→18:30)
[2020-09-04] MEDS: ONDANSETRON 4 MG/2 ML VIAL IVP PRN (08:19)
[2020-09-04] MEDS: TRIAMTERENE-HCTZ 37.5-25MG 1 EACH CAP PO SCH (08:28)
--- NOTE | 2020-09-04 09:30 | P.PN ---
Subjective Progress Note Date: 09/04/20 Principal diagnosis: Abdominal pain Patient is still having diffuse abdominal pain, and slightly nauseous, no vomiting. No fevers or chills. No chest pain or shortness of breath. Objective - Vital Signs Vital signs: Vital Signs Temp 98.6 F 09/04/20 08:00 Pulse 62 09/04/20 08:00 Resp 17 09/04/20 08:00 BP 134/81 09/04/20 08:00 Pulse Ox 96 09/04/20 08:00 Intake & Output 09/03/20 09/04/20 09/04/20 18:59 06:59 18:59 Intake Total 0 Balance 0 Weight 136.078 kg Intake: Oral 0 Other: # Voids 1 - Exam Constitutional: No acute distress, conversant, pleasant Eyes:Anicteric sclerae, moist conjunctiva, no lid-lag, PERRLA, ENMT: Oropharynx clear, no erythema, exudates Neck: Supple, FROM, no masses, or JVD, No carotid bruits, No thyromegaly Lungs: Clear to auscultation, Clear to percussion, Normal respiratory effort, no accessory muscle use Cardiovascular: Heart regular in rate and rhythm, No murmurs, gallops, or rubs, No peripheral edema Abdominal: Colostomy bag, abdomen tender all over, Soft, no guarding, rebound or rigidity, Normoactive bowel sounds, No hepatomegaly, No splenomegaly, No palpable mass Skin: Normal temperature, tone, texture, turgor, no induration, No subcutaneous nodules, No rash, lesions, No ulcers Extremities: No digital cyanosis, No clubbing, Pedal pulses intact and symmetrical, Radial pulses intact and symmetrical, No calf tenderness Psychiatric: Alert and oriented to person, place and time, appropriate affect, intact judgement Neuro: Muscles Strength 5/5 in all 4 extremities, Sensation to light touch grossly present throughout, Cranial nerves II-XII grossly intact, no focal sensory deficits - Labs CBC & Chem 7: 09/03/20 22:05 09/03/20 22:05 Labs: Abnormal Lab Results - Last 24 Hours (Table) 09/03/20 09/03/20 09/03/20 Range/Units 22:05 22:05 23:01 RBC 4.02 L (4.30-5.90) m/uL Hgb 10.3 L (13.0-17.5) gm/dL Hct 33.9 L (39.0-53.0) % MCHC 30.3 L (31.0-37.0) g/dL Lymphocytes # 0.9 L (1.0-4.8) k/uL Sodium 136 L (137-145) mmol/L Glucose 119 H (74-99) mg/dL Plasma Lactic Acid Gerry 2.1 H* (0.7-2.0) mmol/L Assessment and Plan Plan: Intractable nausea and vomiting/acute on chronic abd pain/history of rectal cancer IVF hydration with normal saline symptomatic control of pain and nausea resume norco and dilaudid diet as tolerated gen surgery consult to review the abdominal CT scan Lactic acidosis Resolved Chronic anemia Essential hypertension Resume meds Stable Depression Psychiatry consulted CODE STATUS:full code DVT prophylaxis: mechanical Discussed with: Patient, Anticipated discharge place: home Anticipated discharge: Tomorrow A total of 25 minutes was spent on the care of this complex patient more than 50% of the time was spent in counseling and care coordination.
--- NOTE | 2020-09-04 12:06 | P.GSCN ---
History of Present Illness Consult date: 09/04/20 Reason for Consult: Abdominal pain History of present illness: Is a 59-year-old male well-known to the surgical service. Patient history of re ctal cancer. The patient had operations at [facility] in [facility]. He recently underwent diverting colostomy at [facility] with Dr. cohen. This was performed about 6 weeks ago. Patient was admitted hospital complaints of abdominal pain. Past Medical History Past Medical History: Cancer, GERD/Reflux, Osteoarthritis (OA) Additional Past Medical History / Comment(s): Pt admitted to [facility] on 12/01/19 with a fall/struck R side abdomin/abdominal pain/vomiting/decrease ostomy function/incisional abdominal hernia. Other hx: Rectal cancer 2017 with colectomy/ileostomy then reversal/chemo pills and radiation, partial colonic obstruction-pt sent to [place] and had diverting loop colostomy, chronic low b ack pain, arthritis in multiple joints, neuropathy bilateral feet/toes and R hand, iron deficiency anemia. History of Any Multi-Drug Resistant Organisms: None Reported Past Surgical History: Appendectomy, Bowel Resection, Orthopedic Surgery, Tonsillectomy Additional Past Surgical History / Comment(s): Colectomy/ileostomy with reversal, diverting loop colostomy, colonoscopies, L elbow bursa surgery, double hernia repair Past Anesthesia/Blood Transfusion Reactions: No Reported Reaction Past Psychological History: No Psychological Hx Reported Smoking Status: Never smoker Past Alcohol Use History: Rare Past Drug Use History: None Reported - Past Family History Mother Family Medical History: Cancer, Diabetes Mellitus Additional Family Medical History / Comment(s): from liver cancer Father Family Medical History: Myocardial Infarction ([place]) Additional Family Medical History / Comment(s): Pt has not spoken to his father in years and does not know much of his medical hx. Medications and Allergies Home Medications Medication Instructions Recorded Confirmed Type Docusate [Colace] 100 mg PO DAILY PRN 12/14/19 09/03/20 History HYDROcodone/APAP 10-325MG [[place] 2 tab PO Q6H PRN #16 tab 12/26/19 09/03/20 Rx 10-325] Famotidine [Pepcid] 20 mg PO BID PRN 05/11/20 09/03/20 History Ondansetron [Zofran ODT] 4 mg PO DAILY PRN 05/27/20 09/03/20 History Triamterene-Hctz 37.5-25Mg 1 cap PO DAILY 09/03/20 09/03/20 History [Dyazide 37.5-25 Capsule] Allergies Allergy/AdvReac Type Severity Reaction Status Date / Time morphine Allergy Unknown Verified 09/03/20 22:38 Surgical - Exam Vital Signs Temp Pulse Resp BP Pulse Ox 98.4 F 114 H 20 141/77 97 09/03/20 21:44 09/03/20 21:44 09/03/20 21:44 09/03/20 21:44 09/03/20 21:44 - General well developed, well nourished, no distress - Eyes PERRL - ENT normal pinna - Neck no masses - Respiratory normal expansion - Cardiovascular Rhythm: regular - Abdomen Colostomy left lower quadrant Abdomen: soft, non tender Results - Labs 09/03/20 22:05 09/03/20 22:05 Abnormal Lab Results - Last 24 Hours (Table) 09/03/20 09/03/20 09/03/20 Range/Units 22:05 22:05 23:01 RBC 4.02 L (4.30-5.90) m/uL Hgb 10.3 L (13.0-17.5) gm/dL Hct 33.9 L (39.0-53.0) % MCHC 30.3 L (31.0-37.0) g/dL Lymphocytes # 0.9 L (1.0-4.8) k/uL Sodium 136 L (137-145) mmol/L Glucose 119 H (74-99) mg/dL Plasma Lactic Acid Gerry 2.1 H* (0.7-2.0) mmol/L Diabetes panel 09/03/20 Range/Units 22:05 Sodium 136 L (137-145) mmol/L Potassium 4.1 (3.5-5.1) mmol/L Chloride 103 (98-107) mmol/L Carbon Dioxide 24 (22-30) mmol/L BUN 14 (9-20) mg/dL Creatinine 0.70 (0.66-1.25) mg/dL Glucose 119 H (74-99) mg/dL Calcium 9.7 (8.4-10.2) mg/dL AST 18 (17-59) U/L ALT 13 (4-49) U/L Alkaline Phosphatase 55 (38-126) U/L Total Protein 7.2 (6.3-8.2) g/dL Albumin 3.8 (3.5-5.0) g/dL Calcium panel 09/03/20 Range/Units 22:05 Calcium 9.7 (8.4-10.2) mg/dL Albumin 3.8 (3.5-5.0) g/dL Pituitary panel 09/03/20 Range/Units 22:05 Sodium 136 L (137-145) mmol/L Potassium 4.1 (3.5-5.1) mmol/L Chloride 103 (98-107) mmol/L Carbon Dioxide 24 (22-30) mmol/L BUN 14 (9-20) mg/dL Creatinine 0.70 (0.66-1.25) mg/dL Glucose 119 H (74-99) mg/dL Calcium 9.7 (8.4-10.2) mg/dL Adrenal panel 09/03/20 Range/Units 22:05 Sodium 136 L (137-145) mmol/L Potassium 4.1 (3.5-5.1) mmol/L Chloride 103 (98-107) mmol/L Carbon Dioxide 24 (22-30) mmol/L BUN 14 (9-20) mg/dL Creatinine 0.70 (0.66-1.25) mg/dL Glucose 119 H (74-99) mg/dL Calcium 9.7 (8.4-10.2) mg/dL Total Bilirubin 0.5 (0.2-1.3) mg/dL AST 18 (17-59) U/L ALT 13 (4-49) U/L Alkaline Phosphatase 55 (38-126) U/L Total Protein 7.2 (6.3-8.2) g/dL Albumin 3.8 (3.5-5.0) g/dL Assessment and Plan Assessment: History of rectal cancer. Patient underwent recent surgery at [facility]. I recommended transferring the patient back to the surgeon for further definitive care. No surgical intervention is planned.
[2020-09-04 12:42] VITALS: BMI 43.0
--- NOTE | 2020-09-04 13:08 | P.CN ---
Psychiatric Consult - . Consult date: 09/04/20 Consult:: IDENTIFYING DATA: This patient is a single, on disability, 59-year-old male who was admitted for intractable nausea and vomiting. HISTORY OF PRESENT ILLNESS: The patient presented to the hospital on 09/03/2020 for a couple day history of intractable nausea and vomiting. Psychiatry has been consulted for depression as patient has been noted to be very tearful, sad, hopeless, and lonely. Upon evaluation, the patient states that he's been feeling increasingly upset and depressed and anxious. He states that this is because he is uncertain about the treatment he has been receiving in regards to his GI issues and has been unhappy with surgical treatment he has received expressing significant concern that he found a wire sticking out of his rectum. The patient has been endorsing significant symptoms of depression including feelings of isolation, crying episodes, hopelessness, helplessness, but denies any suicidal or homicidal ideation, intention, and/or plan. He reports that his sleep has been poor and his appetite has been irregular. He does endorse elevated anxiety. He initially stated his worries about his general health but later began to rant about his anxieties regarding the state of the world, the pandemic, and ongoing stressors that are beyond his control. He is not reporting any auditory or visualizations. He is not reporting any paranoia or delusions. He denies any significant symptoms of gabriel or hypomania. In regards to substance use, the patient denies any tobacco use. He denies any drug use or significant alcohol use. The patient expresses that he's been feeling increasingly lonely and isolated. He states that he has no social support stating "I have nobody." PAST PSYCHIATRIC HISTORY: Patient has a a history of depression. He is only able to recall being on despiramine for depression the 90s but stopped taking medication as he felt like he was not beneficial. Patient denies any previous psychiatric hospitalizations. Patient denies any psychiatric outpatient follow- up. Patient denies any history of suicide attempts in the past. PAST MEDICAL HISTORY: Past Medical History: Cancer, GERD/Reflux, Osteoarthritis (OA) Additional Past Medical History / Comment(s): Pt admitted to [facility] on 12/01/19 with a fall/struck R side abdomin/abdominal pain/vomiting/decrease ostomy function/incisional abdominal hernia. Other hx: Rectal cancer 2017 with colectomy/ileostomy then reversal/chemo pills and radiation, partial colonic obstruction-pt sent to [place] and had diverting loop colostomy, chronic low back pain, arthritis in multiple joints, neuropathy bilateral feet/toes and R hand, iron deficiency anemia. ALLERGIES: Morphine CHEMICAL DEPENDENCY HISTORY: Patient denies any significant alcohol, tobacco, or illicit drug use. FAMILY PSYCHIATRIC/SUBSTANCE USE HISTORY: Denies SOCIAL HISTORY: Patient reports that he currently lives alone and has no family. He reports that he has not spoken to his father in years does not know where he is. Patient reports that he was living in [place] for 20 years prior to moving back to [place], [place] 5 years ago. He reports he lives alone in an apartment. He is currently on disability. He says that his dog a couple of years ago. MENTAL STATUS EXAM: General Appearance: Patient appears to be stated age is alert, pleasant, and cooperative. Patient appears to have fair hygiene and grooming wearing hospital gown with fair eye contact. He is a tattoo on his left arm. Behavior: Patient is calmly lying in bed without any agitated behavior. Patient does appear tearful during the interview. Speech: Patient's speech is fluent and nonpressured. Mood/Affect: Patient reports their mood is "depressed", affect is congruent and worried. Suicidality/Homicidality: Patient denies having any suicidal or homicidal ideation intent or plan. Perceptions: Patient denies any visual hallucinations and denies any auditory hallucinations Though content/process: Excessive amount of anxiety regarding numerous subjects is endorsed. Otherwise no delusional thought content is evident. Thought process is dysphoric. Memory and concentration: AOX3, grossly intact for the purposes of this session. Can spell "WORLD" backwards Judgment and insight: Fair IMPRESSIONS: Depressive disorder secondary to general medical condition Generalized anxiety disorder PLAN: -At this time patient DOES NOT meet criteria for inpatient psychiatric admission. The patient is endorsing significant depression and anxiety related to his general medical condition but does not meet inpatient criteria for psychiatric illness as he presents with no risk for harm to self, others, or ability to care for self. -Would recommend the following medication changes/additions: We will start hydroxyzine 25 mg by mouth 3 times a day when necessary for anxiety We will start Remeron 50 mg by mouth at bedtime for insomnia/depression/anxiety/nausea. We will gradually titrate his medications pending patient's response and tolerance. -Will continue to follow along 09/04/20 12:58
[2020-09-04] MEDS: HYDROcodone/APAP 10-325MG 1 EACH TAB PO PRN (20:44)
[2020-09-04] MEDS ORDERED: MIRTAZAPINE 15 MG TAB PO SCH (21:00)
[2020-09-05] MEDS: HYDROmorphone 1 MG/ML 1 ML SYRINGE IVP PRN ×3 (00:30→15:03)
[2020-09-05] MEDS: SODIUM CHLORIDE 0.9% 1,000 ML IV SCH ×3 (03:32→17:45)
[2020-09-05] MEDS: HYDROcodone/APAP 10-325MG 1 EACH TAB PO PRN ×3 (05:46→20:45)
[2020-09-05 07:02] LABS: HCT 30.2 % (39.0-53.0); HGB 9.6 gm/dL (13.0-17.5); Hypochromasia Slight; MCH 27.2 pg (25.0-35.0); MCHC 31.9 g/dL (31.0-37.0); MCV 85.3 fL (80.0-100.0); Mean Platelet Volume 6.5; Platelet Count 205 k/uL (150-450); RBC 3.54 m/uL (4.30-5.90); RDW 15.2 % (11.5-15.5); WBC 4.7 k/uL (3.8-10.6)
[2020-09-05] MEDS: ONDANSETRON 4 MG/2 ML VIAL IVP PRN ×2 (08:17→20:49)
[2020-09-05] MEDS: TRIAMTERENE-HCTZ 37.5-25MG 1 EACH CAP PO SCH (08:18)
[2020-09-05 10:50] LABS: African American GFR (CKD) 121.4 (60.0-200.0); Albumin 3.8 g/dL (3.80-4.90); Albumin/Globulin Ratio 1.81 (1.60-3.17); Anion Gap 11.2 mmol/L (4.00-12.00); BUN/Creat Ratio 12.86 Ratio (12.00-20.00); Calcium 8.8 mg/dL (8.7-10.3); Carbon Dioxide 21.8 mmol/L (21.6-31.8); Globulin 2.1 g/dL (1.6-3.3); Magnesium 1.9 mg/dL (1.5-2.4); Non-African American GFR(CKD) 104.8 (60.0-200.0); Potassium 4.3 mmol/L (3.5-5.5); Total Bilirubin 0.4 mg/dL (0.3-1.2); Total Protein 5.9 g/dL (6.2-8.2)
--- NOTE | 2020-09-05 11:15 | P.PN ---
Progress Note - Text Progress Note Date: 09/05/20 Patient still has complaints of pain. On exam vital signs are stable. Abdomen soft. There is some stool in the stoma bag. History of rectal cancer. Patient has pain seeking behavior. Patient will be followed by Dr. Leonides noland.
[2020-09-05] MEDS ORDERED: MIRTAZAPINE 15 MG TAB PO STA (12:30)
--- NOTE | 2020-09-05 12:36 | P.PN ---
Progress Note - Text Progress Note Date: 09/05/20 Interval History: Patient was seen resting in bed and was directable and agreeable to speak with the engineering writer. Patient is currently expressing that he feels "not right." When asked to expand on what he is feeling, the patient is unable to provide any specifics. He does state that he feels nauseated when he eats. This provider asked him what are his expectations of treatment, and the patient is unable to provide any specifics on that either. This provider tried to inform him that at baseline he may be experiencing pain, and the patient's responses "if I knew that, I probably would've just let the cancer kill me." As noted by the patient's nurse, the patient has been repeatedly asking for narcotic medication. The patient has not given a trial to the Vistaril that has been ordered. He was encouraged to do so to help manage his anxiety. He is agreeable to increa sing his Remeron to help with the depression/anxiety/nausea. He is not endorsing any auditory or visual hallucinations. Mental Status Exam: General Appearance: Patient appears to be stated age is alert, pleasant, and cooperative. Patient appears to have fair hygiene and grooming wearing hospital gown with fair eye contact. He is a tattoo on his left arm. Behavior: Patient is calmly lying in bed without any agitated behavior. Patient does appear tearful during the interview. Speech: Patient's speech is monotone, low in volume, and nonspontaneous. Mood/Affect: Patient reports their mood is "not right", affect is congruent, worried, dysphoric. Suicidality/Homicidality: Patient denies having any suicidal or homicidal ideation intent or plan. Perceptions: Patient denies any visual hallucinations and denies any auditory hallucinations Though content/process: Thought process appears dysphoric. Thought content is very somatic. Memory and concentration: AOX3, grossly intact for the purposes of this session. Can spell "WORLD" backwards Judgment and insight: Fair Assessment Depressive disorder secondary to general medical condition Generalized anxiety disorder Plan: -At this time patient DOES NOT meet criteria for inpatient psychiatric admission. The patient is endorsing significant depression and anxiety related to his general medical condition but does not meet inpatient criteria for psychiatric illness as he presents with no risk for harm to self, others, or ability to care for self. -Would recommend the following medication changes/additions: Continue hydroxyzine 25 mg by mouth 3 times a day when necessary for anxiety. We encourages patient to try this medication. Increase Remeron to 30 mg by mouth at bedtime for insomnia/depression/anxiety/nausea. We will gradually titrate his medications pending patient's response and tolerance. -Will continue to follow along
--- NOTE | 2020-09-05 15:37 | P.PN ---
Subjective Progress Note Date: 09/05/20 Principal diagnosis: Abdominal pain Patient states that he continues to feel uncomfortable with discomfort in his stomach. He is feeling nauseous as well. Nursing reported that he has been watching the clock waiting to get Dilaudid for pain. Objective - Vital Signs Vital signs: Vital Signs Temp 98.2 F 09/05/20 08:00 Pulse 81 09/05/20 08:00 Resp 18 09/05/20 08:00 BP 138/82 09/05/20 08:00 Pulse Ox 97 09/05/20 08:00 Intake & Output 09/04/20 09/05/20 09/05/20 18:59 06:59 18:59 Intake Total 960 600 Balance 960 600 Weight 136.078 kg Intake: Oral 960 600 Other: Voiding Method Toilet # Voids 2 # Bowel Movements 1 1 - Exam Constitutional: No acute distress, conversant, pleasant Eyes:Anicteric sclerae, moist conjunctiva, no lid-lag, PERRLA, ENMT: Oropharynx clear, no erythema, exudates Neck: Supple, FROM, no masses, or JVD, No carotid bruits, No thyromegaly Lungs: Clear to auscultation, Clear to percussion, Normal respiratory effort, no accessory muscle use Cardiovascular: Heart regular in rate and rhythm, No murmurs, gallops, or rubs, No peripheral edema Abdominal: Colostomy bag, abdomen tender all over, Soft, no guarding, rebound or rigidity, Normoactive bowel sounds, No hepatomegaly, No splenomegaly, No palpable mass Skin: Normal temperature, tone, texture, turgor, no induration, No subcutaneous nodules, No rash, lesions, No ulcers Extremities: No digital cyanosis, No clubbing, Pedal pulses intact and symmetrical, Radial pulses intact and symmetrical, No calf tenderness Psychiatric: Alert and oriented to person, place and time, appropriate affect, intact judgement Neuro: Muscles Strength 5/5 in all 4 extremities, Sensation to light touch grossly present throughout, Cranial nerves II-XII grossly intact, no focal sensory deficits - Labs CBC & Chem 7: 09/05/20 06:30 09/05/20 06:30 Labs: Abnormal Lab Results - Last 24 Hours (Table) 09/05/20 09/05/20 Range/Units 06:30 06:30 RBC 3.54 L (4.30-5.90) m/uL Hgb 9.6 L (13.0-17.5) gm/dL Hct 30.2 L (39.0-53.0) % ALT 8 L (10-49) U/L Total Protein 5.9 L (6.2-8.2) g/dL Assessment and Plan Plan: Intractable nausea and vomiting/acute on chronic abd pain/history of rectal cancer IVF hydration with normal saline resume norco, this is a chronic home med Discontinued dilaudid diet as tolerated gen surgery consulted, no need for intervention currently Lactic acidosis Resolved Chronic anemia Essential hypertension Resume meds Stable Depression Psychiatry consulted, psych advised hydroxyzine 25 mg 3 times a day when necessary for anxiety as well as increasing Remeron 30 mg daily. Discharge today was discussed with patient who adamantly does not think that he is ready to go home yet due to his current symptoms. When told to go back in follow-up with his surgeon patient states that he does not want to see his old surgeon again. Patient states that he wants to talk to Dr. Head from surgery after being told that he will be here tomorrow. I told him that he could see Dr. Head in the office but he refused saying that he is not from the area and it would be a long drive for him. Anticipated discharge place: home Anticipated discharge: Tomorrow A total of 25 minutes was spent on the care of this complex patient more than 50% of the time was spent in counseling and care coordination.
[2020-09-05] MEDS: hydrOXYzine pamoate 25 MG CAP PO PRN (17:43)
[2020-09-06] MEDS: SODIUM CHLORIDE 0.9% 1,000 ML IV SCH ×3 (00:14→13:13)
[2020-09-06 01:36] VITALS: TEMP 98.2
[2020-09-06] MEDS: HYDROcodone/APAP 10-325MG 1 EACH TAB PO PRN ×3 (01:59→13:59)
[2020-09-06 07:49] VITALS: BP 111/69; PULSE 69; RESP 16
[2020-09-06] MEDS: hydrOXYzine pamoate 25 MG CAP PO PRN (07:56)
[2020-09-06] MEDS: TRIAMTERENE-HCTZ 37.5-25MG 1 EACH CAP PO SCH (07:57)
--- NOTE | 2020-09-06 11:20 | P.PN ---
<Korin Rasmussen - Last Filed: 09/06/20 11:02> Subjective Progress Note Date: 09/06/20 CHIEF COMPLAINT: Nausea, vomiting and Abdominal pain HISTORY OF PRESENT ILLNESS: Patient has known history of rectal cancer. His most recent surgery was about 6 weeks ago at [facility] and patient had a diverting colostomy completed. Patient reports that after the procedure he had been feeling better but then within the last 3 days his lower abdominal pain that he chronically complains of has come back as well as vomiting and nausea. Computed tomography scan abdomen and pelvis had showed evidence of ileus. Patient does have pain seeking tendencies. He has been evaluated by psychiatry. They have adjusted medications to help with his anxiety, depression and insomnia. Patient reports having nausea and still having abdominal pain. He's had no further vomiting. He reports decrease in appetite. He is having s oft brown stools through his colostomy. Denies any blood in the stools. Afebrile. WBC 4.7 hemoglobin 9.6 PHYSICAL EXAM: VITAL SIGNS: Reviewed. GENERAL: Well-developed in no acute distress. HEENT: No sclera icterus. Extraocular movements grossly intact. Moist buccal mucosa. Head is atraumatic, normocephalic. ABDOMEN: Soft. Obese tender with palpation of the lower abdomen. Colostomy on the left with brownish stool NEUROLOGIC: Alert and oriented. Cranial nerves II through XII grossly intact. ASSESSMENT: 1. Abdominal pain 2. Ileus PLAN: -Continue supportive care -Continue regular diet -Further recommendations forthcoming per surgeon Physician Management Psychologist note has been reviewed by physician. Signing provider agrees with the documented findings, assessment, and plan of care. Objective - Vital Signs Vital signs: Vital Signs Temp 98.2 F 09/06/20 07:48 Pulse 69 09/06/20 07:48 Resp 16 09/06/20 07:48 BP 111/69 09/06/20 07:48 Pulse Ox 97 09/06/20 07:48 Intake & Output 09/05/20 09/06/20 09/06/20 18:59 06:59 18:59 Intake Total 960 Balance 960 Intake: Oral 960 Other: Voiding Method Toilet # Voids 3 1 # Bowel Movements 1 2 - Labs CBC & Chem 7: 09/05/20 06:30 09/05/20 06:30 <Dru Lawson Last Filed: 09/06/20 13:54> Subjective As above. Patient admitted with nausea vomiting and discomfort. Patient had diverting ostomy for distal colonic obstruction at the stent placement site. This was done at [facility]. Patient does not want to return there for a variety of reasons apparently. Tolerating diet currently. Having ostomy function. May discharge. Possible colonoscopy as follow-up to the patient's previous rectal cancer as outpatient. Objective - Vital Signs Vital signs: Vital Signs Temp 98.2 F 09/06/20 07:48 Pulse 69 09/06/20 07:48 Resp 16 09/06/20 07:48 BP 111/69 09/06/20 07:48 Pulse Ox 97 09/06/20 07:48 Intake & Output 09/05/20 09/06/20 09/06/20 18:59 06:59 18:59 Intake Total 960 236 Balance 960 236 Intake: Oral 960 236 Other: Voiding Method Toilet # Voids 3 1 # Bowel Movements 1 2 - Labs CBC & Chem 7: 09/05/20 06:30 09/05/20 06:30
--- NOTE | 2020-09-06 12:53 | P.DS ---
Providers Date of admission: 09/03/20 23:34 Expected date of discharge: 09/06/20 Attending physician: Monik Eric MD Consults: 09/04/20 03:11 Consult Physician Routine Consulting Provider: Vj Pitts Consult Reason/Comments: depression Do you want consulting provider notified?: Yes, Notify in am 09/04/20 03:13 Consult Physician Routine Consulting Provider: Dru Lawson Consult Reason/Comments: known to doc, revision of colostomy and rectal stent Do you want consulting provider notified?: Yes, Notify in am Primary care physician: Josiah Connors DO Hospital Course: This is a 59-year-old male with complex past medical history significant for history of rectal cancer presented to the emergency room with worsening abdominal pain. Patient was evaluated in the and a computed tomography scan of the abdomen and pelvis showed evidence of an ileus. He was admitted to the hospital and was seen and evaluated by general surgery. His overall addition improved significantly. On the day of my evaluation, patient was tolerating a regular diet with no difficulty. He was complaining of chronic abdominal pain. He was seen and evaluated by psychiatry during this admission and was started on Remeron and hydroxyzine for underlying depression/anxiety. Patient was cleared for discharge home. He will be discharged home in a stable condition. He will follow-up with oncology and general surgery as directed. Patient will be discharged home in a stable condition. For further details about this hospitalization please refer to the electronic chart. Time spent on discharge > 30 minutes including counseling and coordination of care Patient Condition at Discharge: Fair Plan - Discharge Summary Discharge Rx Participant: No New Discharge Prescriptions: New Mirtazapine [Remeron] 15 mg PO HS #30 tab hydrOXYzine pamoate [Vistaril] 25 mg PO TID PRN #60 cap PRN Reason: Anxiety Continue Docusate [Colace] 100 mg PO DAILY PRN PRN Reason: Constipation HYDROcodone/APAP 10-325MG [[place] 10-325] 2 tab PO Q6H PRN #16 tab PRN Reason: Pain Famotidine [Pepcid] 20 mg PO BID PRN PRN Reason: Gi Upset Ondansetron [Zofran ODT] 4 mg PO DAILY PRN PRN Reason: Nausea And Vomiting Triamterene-Hctz 37.5-25Mg [Dyazide 37.5-25 Capsule] 1 cap PO DAILY Discharge Medication List Docusate [Colace] 100 mg PO DAILY PRN 12/14/19 [History] HYDROcodone/APAP 10-325MG [[place] 10-325] 2 tab PO Q6H PRN #16 tab 12/26/19 [Rx] Famotidine [Pepcid] 20 mg PO BID PRN 05/11/20 [History] Ondansetron [Zofran ODT] 4 mg PO DAILY PRN 05/27/20 [History] Triamterene-Hctz 37.5-25Mg [Dyazide 37.5-25 Capsule] 1 cap PO DAILY 09/03/20 [History] Mirtazapine [Remeron] 15 mg PO HS #30 tab 09/06/20 [Rx] hydrOXYzine pamoate [Vistaril] 25 mg PO TID PRN #60 cap 09/06/20 [Rx] Follow up Appointment(s)/Referral(s): Josiah Connors DO [Primary Care Provider] - 1-2 days Discharge Disposition: HOME SELF-CARE
[2020-09-06] MEDS: ONDANSETRON 4 MG/2 ML VIAL IVP PRN (13:59)
== END 2020-09-06 14:21 | disposition home or self-care (01) | DRG 389 ==
LOC: EC 21:43 → 5NMEDONC 23:34
PROVIDERS: ADMIT Internal Medicine; ATTEND Internal Medicine
DX: K56.7 Ileus, unspecified (principal); E87.2 Acidosis; R11.2 Nausea with vomiting, unspecified; D50.9 Iron deficiency anemia, unspecified; F32.9 Major depressive disorder, single episode, unspecified; F41.1 Generalized anxiety disorder; G47.00 Insomnia, unspecified; G89.29 Other chronic pain; I10 Essential (primary) hypertension; Z80.0 Family history of malignant neoplasm of digestive organs; Z82.49 Family history of ischemic heart disease and other diseases of the circulatory system; Z83.3 Family history of diabetes mellitus; Z85.048 Personal history of other malignant neoplasm of rectum, rectosigmoid junction, and anus; Z90.49 Acquired absence of other specified parts of digestive tract; Z93.3 Colostomy status; G62.9 Polyneuropathy, unspecified; M15.9 Polyosteoarthritis, unspecified; Z80.9 Family history of malignant neoplasm, unspecified; Z88.5 Allergy status to narcotic agent; Z60.2 Problems related to living alone; M54.5 Low back pain
CPT/HCPCS: 36415; 74176; 80053; 81003; 83605; 83690; 83735; 85025; 85027; 96361; 96374; 96375; 96376; 99285

== ENCOUNTER 2020-09-18 17:50 | Inpatient (IN) | payer OTHER ==
[2020-09-18] MEDS ORDERED: SODIUM CHLORIDE 0.9% 1,000 ML IV ONE (18:29)
[2020-09-18] MEDS ORDERED: ONDANSETRON 4 MG/2 ML VIAL IVP STA (18:31)
[2020-09-18] MEDS ORDERED: HYDROmorphone 1 MG/ML 1 ML SYRINGE IVP STA ×2 (18:31→20:27)
--- NOTE | 2020-09-18 18:33 | ED ---
General Adult HPI - General Chief complaint: Abdominal Pain Stated complaint: Nausea/vomiting/abd pain Time Seen by Provider: 09/18/20 18:09 Source: patient Mode of arrival: wheelchair Limitations: no limitations - History of Present Illness Initial comments: Patient presents the ED complaining of having generalized abdominal pain and nausea/vomiting/diarrhea for the past 3 days or so. Patient states that he has a colostomy, and he states he has had similar symptoms in the past. He states that he most recently had these symptoms from an ileus. Patient denies trauma or injury, fever or chills, headache, focal neuro deficit, chest pain, dyspnea, dizziness, back or flank pain, bloody or melanotic ostomy output, hematemesis, dysuria/hematuria/urinary frequency/urinary symptoms, or any other symptoms or complaints. - Related Data Home Medications Medication Instructions Recorded Confirmed Docusate [Colace] 100 mg PO DAILY PRN 12/14/19 09/18/20 Famotidine [Pepcid] 20 mg PO BID PRN 05/11/20 09/18/20 Triamterene-Hctz 37.5-25Mg 1 cap PO DAILY 09/03/20 09/18/20 [Dyazide 37.5-25 Capsule] Previous Rx's Medication Instructions Recorded HYDROcodone/APAP 10-325MG [[place] 2 tab PO Q6H PRN #16 tab 12/26/19 10-325] Allergies Allergy/AdvReac Type Severity Reaction Status Date / Time morphine Allergy Unknown Verified 09/18/20 19:25 Review of Systems ROS Statement: Those systems with pertinent positive or pertinent negative responses have been documented in the HPI. ROS Other: All systems not noted in ROS Statement are negative. Past Medical History Past Medical History: Cancer, GERD/Reflux, Osteoarthritis (OA) Additional Past Medical History / Comment(s): Pt admitted to [facility] on 12/01/19 with a fall/struck R side abdomin/abdominal pain/vomiting/decrease ostomy function/incisional abdominal hernia. Other hx: Rectal cancer 2017 with colectomy/ileostomy then reversal/chemo pills and radiation, partial colonic obstruction-pt sent to [facility] and had diverting loop colostomy, chronic low ba ck pain, arthritis in multiple joints, neuropathy bilateral feet/toes and R hand, iron deficiency anemia. History of Any Multi-Drug Resistant Organisms: None Reported Past Surgical History: Appendectomy, Bowel Resection, Orthopedic Surgery, Tonsillectomy Additional Past Surgical History / Comment(s): Colectomy/ileostomy with reversal, diverting loop colostomy, colonoscopies, L elbow bursa surgery, double hernia repair Past Anesthesia/Blood Transfusion Reactions: No Reported Reaction Past Psychological History: No Psychological Hx Reported Smoking Status: Never smoker Past Alcohol Use History: Rare Past Drug Use History: None Reported - Past Family History Mother Family Medical History: Cancer, Diabetes Mellitus Additional Family Medical History / Comment(s): from liver cancer Father Family Medical History: Myocardial Infarction ([place]) Additional Family Medical History / Comment(s): Pt has not spoken to his father in years and does not know much of his medical hx. General Exam Limitations: no limitations General appearance: alert, in no apparent distress Head exam: Present: atraumatic, normocephalic Eye exam: Present: normal appearance, EOMI ENT exam: Present: mucous membranes moist Neck exam: Present: other (Trachea is in midline) Respiratory exam: Present: normal lung sounds bilaterally. Absent: respiratory distress, wheezes, rales, rhonchi, stridor Cardiovascular Exam: Present: normal rhythm, tachycardia, normal heart sounds, other (Normal radial pulses bilaterally) GI/Abdominal exam: Present: soft, normal bowel sounds, other (Moderate generalized tenderness; colostomy bag contains loose brown stool). Absent: distended, guarding, rebound Extremities exam: Absent: tenderness, pedal edema Back exam: Absent: CVA tenderness (R), CVA tenderness (L) Neurological exam: Present: alert, oriented X3. Absent: motor sensory deficit Psychiatric exam: Present: normal affect Skin exam: Present: warm, dry, intact, normal color Course Vital Signs 09/18/20 09/18/20 17:59 19:30 Temperature 99.0 F 98.9 F Pulse Rate 119 H 100 Respiratory 18 18 Rate Blood Pressure 143/88 116/85 O2 Sat by Pulse 98 95 Oximetry - Reevaluation(s) Reevaluation #1: 09/18/20 20:17 Case, H&P, test results and ED management were discussed with Dr. Rodriguez. He accepts hospital admission. He recommends placing an order for general surgery consultation with Dr. Lawson. He also recommends Covid testing. He has no further recommendations at this time. 09/18/20 20:30 Patient states that his symptoms have improved with ED treatment, and he denies development of any new symptoms while in the ED. Patient's abdomen remains soft and without any surgical signs on examination. Patient is afebrile and without leukocytosis. Patient is aware of his test results, and he agrees with hospital admission at this time. Medical Decision Making - Medical Decision Making Patient is afebrile and without leukocytosis. Patient has a nonsurgical abdominal exam. I suspect that the patient's symptoms are likely secondary to ileus versus small bowel obstruction given the patient's history and CT findings. Will admit the patient to the hospital for further evaluation, monitoring and symptom control. Dr. Rodriguez is accepted hospital admission. - Lab Data Result diagrams: 09/18/20 18:22 09/18/20 18:22 Lab Results 09/18/20 09/18/20 Range/Units 18:22 18:22 WBC 8.1 (3.8-10.6) k/uL RBC 4.46 (4.30-5.90) m/uL Hgb 11.8 L (13.0-17.5) gm/dL Hct 37.1 L (39.0-53.0) % MCV 83.3 (80.0-100.0) fL MCH 26.4 (25.0-35.0) pg MCHC 31.7 (31.0-37.0) g/dL RDW 14.7 (11.5-15.5) % Plt Count 393 (150-450) k/uL MPV 6.1 Neutrophils % 83 % Lymphocytes % 9 % Monocytes % 7 % Eosinophils % 0 % Basophils % 0 % Neutrophils # 6.7 (1.3-7.7) k/uL Lymphocytes # 0.7 L (1.0-4.8) k/uL Monocytes # 0.5 (0-1.0) k/uL Eosinophils # 0.0 (0-0.7) k/uL Basophils # 0.0 (0-0.2) k/uL Sodium 138 (137-145) mmol/L Potassium 3.7 (3.5-5.1) mmol/L Chloride 103 (98-107) mmol/L Carbon Dioxide 25 (22-30) mmol/L Anion Gap 10 mmol/L BUN 16 (9-20) mg/dL Creatinine 0.85 (0.66-1.25) mg/dL Est GFR (CKD-EPI)AfAm >90 (>60 ml/min/1.73 sqM) Est GFR (CKD-EPI)NonAf >90 (>60 ml/min/1.73 sqM) Glucose 162 H (74-99) mg/dL Calcium 10.1 (8.4-10.2) mg/dL Total Bilirubin 0.6 (0.2-1.3) mg/dL AST 18 (17-59) U/L ALT 12 (4-49) U/L Alkaline Phosphatase 64 (38-126) U/L Total Protein 7.8 (6.3-8.2) g/dL Albumin 4.2 (3.5-5.0) g/dL Amylase 47 (30-110) U/L Lipase 34 (23-300) U/L - Radiology Data Radiology results: report reviewed (CT abdomen/pelvis with IV contrast: There are dilated loops of small bowel improved slightly compared to old exam, this could relate to ileus or partial obstruction) Disposition Clinical Impression: Abdominal pain, Vomiting, Diarrhea Narrative: Suspected ileus versus partial bowel obstruction Disposition: ADMITTED IP TO THIS [facility] Condition: Stable Is patient prescribed a controlled substance at d/c from ED?: No Referrals: Josiah Connors DO [Primary Care Provider] - 1-2 days Time of Disposition: 20:24
[2020-09-18 18:52] LABS: Basophils % (A) 0 %; Eosinophils % (A) 0 %; HCT 37.1 % (39.0-53.0); HGB 11.8 gm/dL (13.0-17.5); Lymphocytes # (A) 0.7 k/uL (1.0-4.8); Lymphocytes % (A) 9 %; MCH 26.4 pg (25.0-35.0); MCHC 31.7 g/dL (31.0-37.0); MCV 83.3 fL (80.0-100.0); Mean Platelet Volume 6.1; Monocytes # (A) 0.5 k/uL (0-1.0); Monocytes % (A) 7 %; Neutrophils # (A) 6.7 k/uL (1.3-7.7); Neutrophils % (A) 83 %; Platelet Count 393 k/uL (150-450); RBC 4.46 m/uL (4.30-5.90); RDW 14.7 % (11.5-15.5); WBC 8.1 k/uL (3.8-10.6)
[2020-09-18 19:10] LABS: ALT 12 U/L (4-49); AST 18 U/L (17-59); African American GFR (CKD) >90 (>60 ml/min/1.73 sqM); Albumin 4.2 g/dL (3.5-5.0); Alkaline Phosphatase 64 U/L (38-126); Amylase 47 U/L (30-110); Anion Gap 10 mmol/L; Blood Urea Nitrogen 16 mg/dL (9-20); Calcium 10.1 mg/dL (8.4-10.2); Carbon Dioxide 25 mmol/L (22-30); Chloride 103 mmol/L (98-107); Glucose 162 mg/dL (74-99); Lipase 34 U/L (23-300); Non-African American GFR(CKD) >90 (>60 ml/min/1.73 sqM); Potassium 3.7 mmol/L (3.5-5.1); Sodium 138 mmol/L (137-145); Total Bilirubin 0.6 mg/dL (0.2-1.3); Total Protein 7.8 g/dL (6.3-8.2)
--- NOTE | 2020-09-18 19:17 | CT ---
EXAMINATION TYPE: CT abdomen pelvis w con DATE OF EXAM: 09/18/2020 COMPARISON: 09/03/2020 HISTORY: Generalized abdominal pain with nausea, vomiting and diarrhea. CT DLP: 1880.9 mGycm Automated exposure control for dose reduction was used. CONTRAST: Performed with IV Contrast, patient injected with 100 mL of Isovue 300. Lung bases are clear. There is no pleural effusion. Heart appears normal. Liver spleen stomach pancreas gallbladder appear intact. Bile ducts are not dilated. There is no adre nal mass. Kidneys show satisfactory contrast opacification. There is no hydronephrosis. There is 1.5 cm cortical cyst upper pole right kidney. Ureters are not dilated. There is no retroperitoneal adenop athy. Delayed images show normal renal excretion. There is left side colostomy noted. There is stent in the rectum. Bladder distends smoothly. There is no free fluid in the pelvis. There is increased so ft tissue density around the rectum. This measures 8 cm in diameter. 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 The pelvic ring is intact. The lumbar spine is intact. There is 20% wedging of T12 vertebra t hat appears old. There is no mesenteric edema. There is previous surgery at the hepatic flexure of the colon. There is no ascites. There is no free air. There are some distended fluid-filled small bowel loops in the mid abdomen. These measure up to 3.4 cm. Transition point not seen. IMPRESSION: There are dilated loops of small bowel improved slightly compared to old exam. This could relate to i leus or partial obstruction. There is Loop colostomy on the left side. There is rectal mass unchanged. There is previous surgery w ith stent at the rectosigmoid junction. This appears unchanged. Mild compression fracture of T12 unchanged.
[2020-09-18] MEDS ORDERED: NALOXONE 0.4 MG/ML 1 ML VIAL IV PRN (20:24)
[2020-09-18] MEDS ORDERED: HYDROmorphone 0.5 MG/0.5 ML SYRINGE IVP PRN (20:24)
[2020-09-18] MEDS: SODIUM CHLORIDE 0.9% 1,000 ML IV SCH (20:34)
[2020-09-19] MEDS: HYDROmorphone 0.5 MG/0.5 ML SYRINGE IVP SCH ×2 (00:56→02:22)
[2020-09-19] MEDS: ONDANSETRON 4 MG/2 ML VIAL IVP PRN ×2 (01:36→12:54)
[2020-09-19] MEDS: HYDROmorphone 0.5 MG/0.5 ML SYRINGE IVP PRN ×5 (05:29→22:49)
[2020-09-19 05:49] LABS: Basophils % (A) 0 %; Eosinophils # (A) 0.1 k/uL (0-0.7); Eosinophils % (A) 1 %; HCT 34.5 % (39.0-53.0); HGB 10.5 gm/dL (13.0-17.5); Hypochromasia Moderate; Lymphocytes # (A) 1.1 k/uL (1.0-4.8); Lymphocytes % (A) 16 %; MCHC 30.4 g/dL (31.0-37.0); MCV 85.5 fL (80.0-100.0); Mean Platelet Volume 6.3; Monocytes # (A) 0.6 k/uL (0-1.0); Monocytes % (A) 8 %; Neutrophils # (A) 5.3 k/uL (1.3-7.7); Neutrophils % (A) 73 %; Platelet Count 324 k/uL (150-450); RBC 4.04 m/uL (4.30-5.90); RDW 14.7 % (11.5-15.5); WBC 7.2 k/uL (3.8-10.6)
[2020-09-19 09:03] LABS: African American GFR (CKD) 114.9 (60.0-200.0); Albumin 4.3 g/dL (3.80-4.90); Albumin/Globulin Ratio 1.87 (1.60-3.17); BUN/Creat Ratio 22.5 Ratio (12.00-20.00); Calcium 9.2 mg/dL (8.7-10.3); Globulin 2.3 g/dL (1.6-3.3); Non-African American GFR(CKD) 99.2 (60.0-200.0); Potassium 3.8 mmol/L (3.5-5.5); Total Bilirubin 0.5 mg/dL (0.2-1.2); Total Protein 6.6 g/dL (6.2-8.2)
--- NOTE | 2020-09-19 12:12 | P.GSCN ---
History of Present Illness Consult date: 09/19/20 Reason for Consult: Abdominal pain History of present illness: 59-year-old male with chronic abdominal pain. Presents to the hospital complain ing of crampy abdominal pain. Loose stools through the ostomy. CAT scan performed and demonstrates mild proximal small bowel dilation. Ileus versus partial small bowel obstruction suspected per radiology. Patient without vomiting. Appetite diminished. Patient with history of rectal cancer. Un derwent low anterior resection developed a leak. Had a stent placed at the leak site which eventually eroded through the wall of the rectum partially. This led to an obstruction. Patient had a diverting ostomy. Ostomy was reversed and then only recently at [facility] 1-2 months ago had a loop colostomy again for a recurrent obstruction at the stent site. A new stent was placed while he was at [facility]. Patient is adamant that the loop colostomy be reversed. He is due for colonoscopy for screening purposes given his personal history of rectal cancer. He is afebrile. White blood Cell count is normal. Review of Systems The patient denies any acute changes in vision or hearing, no dysphagia or odynophagia, no chest pain or shortness of breath, no dysuria or hematuria, no headache, no runny nose, no rectal bleeding or melena, no unexplained weight loss Past Medical History Past Medical History: Cancer, GERD/Reflux, Osteoarthritis (OA) Additional Past Medical History / Comment(s): Pt admitted to [facility] on 12/01/19 with a fall/struck R side abdomin/abdominal pain/vomiting/decrease ostomy function/incisional abdominal hernia. Other hx: Rectal cancer 2017 with colectomy/ileostomy then reversal/chemo pills and radiation, partial colonic obstruction-pt sent to [facility] and had diverting loop colostomy, chronic low back pain, arthritis in multiple joints, neuropathy bilateral feet/toes and R hand, iron deficiency anemia. History of Any Multi-Drug Resistant Organisms: None Reported Past Surgical History: Appendectomy, Bowel Resection, Orthopedic Surgery, Tonsillectomy Additional Past Surgical History / Comment(s): Colectomy/ileostomy with reversal, diverting loop colostomy, colonoscopies, L elbow bursa surgery, double hernia repair Past Anesthesia/Blood Transfusion Reactions: No Reported Reaction Past Psychological History: No Psychological Hx Reported Additional Psychological History / Comment(s): Pt resides in an apartment alone. Pt has a cane which he uses prn. He drives. Smoking Status: Former smoker Past Alcohol Use History: Rare Additional Past Alcohol Use History / Comment(s): Pt started smoking as a teen and quit in 1998. Past Drug Use History: None Reported - Past Family History Mother Family Medical History: Cancer, Diabetes Mellitus Additional Family Medical History / Comment(s): from liver cancer Father Family Medical History: Myocardial Infarction ([place]) Additional Family Medical History / Comment(s): Pt has not spoken to his father in years and does not know much of his medical hx. Medications and Allergies Home Medications Medication Instructions Recorded Confirmed Type Docusate [Colace] 100 mg PO DAILY PRN 12/14/19 09/18/20 History HYDROcodone/APAP 10-325MG [[place] 2 tab PO Q6H PRN #16 tab 12/26/19 09/18/20 Rx 10-325] Famotidine [Pepcid] 20 mg PO BID PRN 05/11/20 09/18/20 History Triamterene-Hctz 37.5-25Mg 1 cap PO DAILY 09/03/20 09/18/20 History [Dyazide 37.5-25 Capsule] Allergies Allergy/AdvReac Type Severity Reaction Status Date / Time morphine Allergy Unknown Verified 09/18/20 19:25 Surgical - Exam Vital Signs Temp Pulse Resp BP Pulse Ox 99.0 F 119 H 18 143/88 98 09/18/20 17:59 09/18/20 17:59 09/18/20 17:59 09/18/20 17:59 09/18/20 17:59 Physical exam: General: Well-developed, well-nourished HEENT: Normocephalic, sclerae nonicteric Abdomen: Mild diffuse tenderness, ostomy functioning, nondistended Extremities: No edema Neuro: Alert and oriented Results - Labs 09/19/20 04:43 09/19/20 04:43 Abnormal Lab Results - Last 24 Hours (Table) 09/18/20 09/18/20 09/19/20 Range/Units 18:22 18:22 04:43 RBC 4.04 L (4.30-5.90) m/uL Hgb 11.8 L 10.5 L (13.0-17.5) gm/dL Hct 37.1 L 34.5 L (39.0-53.0) % MCHC 30.4 L (31.0-37.0) g/dL Lymphocytes # 0.7 L (1.0-4.8) k/uL BUN/Creatinine Ratio (12.00-20.00) Ratio Glucose 162 H (74-99) mg/dL AST (14-35) U/L ALT (10-49) U/L 09/19/20 Range/Units 04:43 RBC (4.30-5.90) m/uL Hgb (13.0-17.5) gm/dL Hct (39.0-53.0) % MCHC (31.0-37.0) g/dL Lymphocytes # (1.0-4.8) k/uL BUN/Creatinine Ratio 22.50 H (12.00-20.00) Ratio Glucose (74-99) mg/dL AST 13 L (14-35) U/L ALT 9 L (10-49) U/L Diabetes panel 09/18/20 09/19/20 Range/Units 18:22 04:43 Sodium 138 139 (137-145) mmol/L Potassium 3.7 3.8 (3.5-5.1) mmol/L Chloride 103 104 (98-107) mmol/L Carbon Dioxide 25 25.0 (22-30) mmol/L BUN 16 18.0 (9-20) mg/dL Creatinine 0.85 0.8 (0.66-1.25) mg/dL Glucose 162 H 93 (74-99) mg/dL Calcium 10.1 9.2 (8.4-10.2) mg/dL AST 18 13 L (17-59) U/L ALT 12 9 L (4-49) U/L Alkaline Phosphatase 64 52 (38-126) U/L Total Protein 7.8 6.6 (6.3-8.2) g/dL Albumin 4.2 4.30 (3.5-5.0) g/dL Calcium panel 09/18/20 09/19/20 Range/Units 18:22 04:43 Calcium 10.1 9.2 (8.4-10.2) mg/dL Albumin 4.2 4.30 (3.5-5.0) g/dL Pituitary panel 09/18/20 09/19/20 Range/Units 18:22 04:43 Sodium 138 139 (137-145) mmol/L Potassium 3.7 3.8 (3.5-5.1) mmol/L Chloride 103 104 (98-107) mmol/L Carbon Dioxide 25 25.0 (22-30) mmol/L BUN 16 18.0 (9-20) mg/dL Creatinine 0.85 0.8 (0.66-1.25) mg/dL Glucose 162 H 93 (74-99) mg/dL Calcium 10.1 9.2 (8.4-10.2) mg/dL Adrenal panel 09/18/20 09/19/20 Range/Units 18:22 04:43 Sodium 138 139 (137-145) mmol/L Potassium 3.7 3.8 (3.5-5.1) mmol/L Chloride 103 104 (98-107) mmol/L Carbon Dioxide 25 25.0 (22-30) mmol/L BUN 16 18.0 (9-20) mg/dL Creatinine 0.85 0.8 (0.66-1.25) mg/dL Glucose 162 H 93 (74-99) mg/dL Calcium 10.1 9.2 (8.4-10.2) mg/dL Total Bilirubin 0.6 0.5 (0.2-1.3) mg/dL AST 18 13 L (17-59) U/L ALT 12 9 L (4-49) U/L Alkaline Phosphatase 64 52 (38-126) U/L Total Protein 7.8 6.6 (6.3-8.2) g/dL Albumin 4.2 4.30 (3.5-5.0) g/dL Assessment and Plan (1) Partial small bowel obstruction Narrative/Plan: 59-year-old male with partial small bowel obstruction. Resume liquid diet. Repeat abdominal films tomorrow. Ambulate. Current Visit: No Status: Acute Code(s): K56.600 - PARTIAL INTESTINAL OBSTRUCTION, UNSPECIFIED TO CAUSE SNOMED Code(s): 053771903
--- NOTE | 2020-09-19 18:04 | P.HPIM ---
History of Present Illness H&P Date: 09/19/20 Chief Complaint: Nausea/vomiting/abdominal pain Patient presents the ED complaining of having generalized abdominal pain and nausea/vomiting/diarrhea for the past 3 days or so. Patient states that he has a colostomy, and he states he has had similar symptoms in the past. He states that he most recently had these symptoms from an ileus. Patient denies trauma or injury, fever or chills, headache, focal neuro deficit, chest pain, dyspnea, dizziness, back or flank pain, bloody or melanotic ostomy output, hematemesis, dysuria/hematuria/urinary frequency/urinary symptoms, or any other symptoms or complaints. CT of the abdomen done revealed ileus versus partial small bowel obstruction; patient is admitted to the hospital for further evaluation Patient with history of rectal cancer. Underwent low anterior resection developed a leak. Had a stent placed at the leak site which eventually eroded through the wall of the rectum partially. This led to an obstruction. Patient had a diverting ostomy. Ostomy was reversed and then only recently at [facility] 1-2 months ago had a loop colostomy again for a recurrent obstruction at the stent site. A new stent was placed while he was at [facility]. Patient is adamant that the loop colostomy be reversed. He is due for colonoscopy for screening purposes given his personal history of rectal cancer. Review of Systems REVIEW OF SYSTEMS: CONSTITUTIONAL: No fever, no malaise, no fatigue. HEENT: No recent visual problems or hearing problems. Denied any sore throat. CARDIOVASCULAR: No chest pain, orthopnea, PND, no palpitations, no syncope. PULMONARY: No shortness of breath, no cough, no hemoptysis. GASTROINTESTINAL: No diarrhea, no nausea, no vomiting, no abdominal pain. NEUROLOGICAL: No headaches, no weakness, no numbness. HEMATOLOGICAL: Denies any bleeding or petechiae. GENITOURINARY: Denies any burning micturition, frequency, or urgency. MUSCULOSKELETAL/RHEUMATOLOGICAL: Denies any joint pain, swelling, or any muscle pain. ENDOCRINE: Denies any polyuria or polydipsia. The rest of the 14-point review of systems is negative. Past Medical History Past Medical History: Cancer, GERD/Reflux, Osteoarthritis (OA) Additional Past Medical History / Comment(s): Pt admitted to [facility] on 12/01/19 with a fall/struck R side abdomin/abdominal pain/vomiting/decrease ostomy function/incisional abdominal hernia. Other hx: Rectal cancer 2017 with colectomy/ileostomy then reversal/chemo pills and radiation, partial colonic obstruction-pt sent to [place] and had diverting loop colostomy, chronic low back pain, arthritis in multiple joints, neuropathy bilateral feet/toes and R hand, iron deficiency anemia. History of Any Multi-Drug Resistant Organisms: None Reported Past Surgical History: Appendectomy, Bowel Resection, Orthopedic Surgery, Tonsillectomy Additional Past Surgical History / Comment(s): Colectomy/ileostomy with reversal, diverting loop colostomy, colonoscopies, L elbow bursa surgery, double hernia repair Past Anesthesia/Blood Transfusion Reactions: No Reported Reaction Past Psychological History: No Psychological Hx Reported Additional Psychological History / Comment(s): Pt resides in an apartment alone. Pt has a cane which he uses prn. He drives. Smoking Status: Former smoker Past Alcohol Use History: Rare Additional Past Alcohol Use History / Comment(s): Pt started smoking as a teen and quit in 1998. Past Drug Use History: None Reported - Past Family History Mother Family Medical History: Cancer, Diabetes Mellitus Additional Family Medical History / Comment(s): from liver cancer Father Family Medical History: Myocardial Infarction ([place]) Additional Family Medical History / Comment(s): Pt has not spoken to his father in years and does not know much of his medical hx. Medications and Allergies Home Medications Medication Instructions Recorded Confirmed Type Docusate [Colace] 100 mg PO DAILY PRN 12/14/19 09/18/20 History HYDROcodone/APAP 10-325MG [[place] 2 tab PO Q6H PRN #16 tab 12/26/19 09/18/20 Rx 10-325] Famotidine [Pepcid] 20 mg PO BID PRN 05/11/20 09/18/20 History Triamterene-Hctz 37.5-25Mg 1 cap PO DAILY 09/03/20 09/18/20 History [Dyazide 37.5-25 Capsule] Allergies Allergy/AdvReac Type Severity Reaction Status Date / Time morphine Allergy Unknown Verified 09/18/20 19:25 Physical Exam Vitals: Vital Signs Temp Pulse Pulse Resp BP BP Pulse Ox 09/19/20 08:00 16 09/19/20 07:34 98.3 F 81 16 120/75 97 09/19/20 01:40 98.1 F 91 20 130/79 97 09/18/20 22:52 98.8 F 89 18 127/87 97 09/18/20 21:56 99.3 F 88 17 108/83 97 09/18/20 20:35 98 18 129/89 98 09/18/20 19:30 98.9 F 100 18 116/85 95 09/18/20 17:59 99.0 F 119 H 18 143/88 98 Intake and Output 09/18/20 09/19/20 09/19/20 22:59 06:59 14:59 Intake Total 0 Balance 0 Intake: Oral 0 Other: Voiding Method Toilet Weight 127.006 kg General appearance: alert, in no apparent distress Head exam: Present: atraumatic, normocephalic Eye exam: Present: normal appearance, EOMI ENT exam: Present: mucous membranes moist Neck exam: Present: other (Trachea is in midline) Respiratory exam: Present: normal lung sounds bilaterally. Absent: respiratory distress, wheezes, rales, rhonchi, stridor Cardiovascular Exam: Present: normal rhythm, tachycardia, normal heart sounds, other (Normal radial pulses bilaterally) GI/Abdominal exam: Present: soft, normal bowel sounds, other (Moderate generalized tenderness; colostomy bag contains loose brown stool). Absent: distended, guarding, rebound Extremities exam: Absent: tenderness, pedal edema Back exam: Absent: CVA tenderness (R), CVA tenderness (L) Neurological exam: Present: alert, oriented X3. Absent: motor sensory deficit Psychiatric exam: Present: normal affect Skin exam: Present: warm, dry, intact, normal color Results CBC & Chem 7: 09/19/20 04:43 09/19/20 04:43 Labs: Abnormal Lab Results - Last 24 Hours (Table) 09/18/20 09/18/20 09/19/20 Range/Units 18:22 18:22 04:43 RBC 4.04 L (4.30-5.90) m/uL Hgb 11.8 L 10.5 L (13.0-17.5) gm/dL Hct 37.1 L 34.5 L (39.0-53.0) % MCHC 30.4 L (31.0-37.0) g/dL Lymphocytes # 0.7 L (1.0-4.8) k/uL BUN/Creatinine Ratio (12.00-20.00) Ratio Glucose 162 H (74-99) mg/dL AST (14-35) U/L ALT (10-49) U/L 09/19/20 Range/Units 04:43 RBC (4.30-5.90) m/uL Hgb (13.0-17.5) gm/dL Hct (39.0-53.0) % MCHC (31.0-37.0) g/dL Lymphocytes # (1.0-4.8) k/uL BUN/Creatinine Ratio 22.50 H (12.00-20.00) Ratio Glucose (74-99) mg/dL AST 13 L (14-35) U/L ALT 9 L (10-49) U/L Assessment and Plan Assessment: 1. Suspected ileus versus partial bowel obstruction - Patient is started on IV fluids; plan to monitor strict NENO's; monitor electrolytes - Patient is evaluated by surgery and is recommended repeat imaging tomorrow morning - Patient has been started on clear liquid diet and recommended increase activity 2. Gastro-subjective reflux disease/gastritis; Protonix 40 mg daily 3. Hypertension; blood pressure is soft; patient takes Dyazide 30 7. 525 milligrams daily at home; we will hold off to blood pressure improves 4. DVT prophylaxis; SCDs CODE STATUS; full code
[2020-09-19] MEDS: SODIUM CHLORIDE 0.9% 1,000 ML IV SCH ×2 (20:39→22:50)
[2020-09-20] MEDS: ONDANSETRON 4 MG/2 ML VIAL IVP PRN (00:43)
[2020-09-20] MEDS: HYDROmorphone 0.5 MG/0.5 ML SYRINGE IVP PRN ×3 (04:01→13:20)
--- NOTE | 2020-09-20 08:44 | XR ---
EXAMINATION TYPE: XR abdomen 2V DATE OF EXAM: 09/20/2020 HISTORY: Follow-up obstruction/ileus Technique: 4 views of the abdomen are submitted. Comparison: None. Findings: There is persistent mild distention of small bowel which may reflect partial SBO versus ileus. Postop erative changes left hemicolon. Rectal stents are redemonstrated. No evidence for pneumoperitoneum. IMPRESSION: 1. Nonspecific bowel gas pattern
[2020-09-20 09:09] LABS: African American GFR (CKD) 114.9 (60.0-200.0); Anion Gap 10.4 mmol/L (4.00-12.00); BUN/Creat Ratio 21.25 Ratio (12.00-20.00); Calcium 9.2 mg/dL (8.7-10.3); Carbon Dioxide 22.6 mmol/L (21.6-31.8); Non-African American GFR(CKD) 99.2 (60.0-200.0); Potassium 3.7 mmol/L (3.5-5.5)
[2020-09-20] MEDS: SODIUM CHLORIDE 0.9% 1,000 ML IV SCH ×2 (11:58→21:16)
--- NOTE | 2020-09-20 13:18 | P.PN ---
<Korin Rasmussen - Last Filed: 09/20/20 13:13> Subjective Progress Note Date: 09/20/20 CHIEF COMPLAINT: Abdominal pain HISTORY OF PRESENT ILLNESS: Patient is being followed for partial small bowel obstruction. He is currently tolerating clear liquid diet. He reports passing a small amount of gas through his ostomy as well as having small amount of liquidy stool. He also reports nausea no vomiting. Afebrile WBC 7.2 Covid negative Abdominal x-ray persistent mild distention of small bowel which may reflect partial small bowel obstruction versus ileus. PHYSICAL EXAM: VITAL SIGNS: Reviewed. GENERAL: Well-developed in no acute distress. HEENT: No sclera icterus. Extraocular movements grossly intact. Moist buccal mucosa. Head is atraumatic, normocephalic. ABDOMEN: Soft. Nondistended. Mild diffuse tenderness, ostomy functioning NEUROLOGIC: Alert and oriented. Cranial nerves II through XII grossly intact. ASSESSMENT: 1. Partial small bowel obstruction PLAN: -Continue clear liquid diet -Encouraged patient to ambulate -Ostomy nurse consulted Physician Language Arts Teacher note has been reviewed by physician. Signing provider agrees with the documented findings, assessment, and plan of care. Objective - Vital Signs Vital signs: Vital Signs Temp 98.3 F 09/20/20 08:00 Pulse 76 09/20/20 08:00 Resp 16 09/20/20 08:00 BP 149/77 09/20/20 08:00 Pulse Ox 98 09/20/20 08:00 Intake & Output 09/19/20 09/20/20 09/20/20 18:59 06:59 18:59 Other: Voiding Method Toilet - Labs CBC & Chem 7: 09/19/20 04:43 09/20/20 04:26 Labs: Abnormal Lab Results - Last 24 Hours (Table) 09/20/20 Range/Units 04:26 BUN/Creatinine Ratio 21.25 H (12.00-20.00) Ratio <Dru Lawson - Last Filed: 09/20/20 15:52> Subjective As above. Patient's pain is improved. Ostomy with decreased function. No vomiting. Flat plate improved. Continue clears. Objective - Vital Signs Vital signs: Vital Signs Temp 97.8 F 09/20/20 14:00 Pulse 75 09/20/20 14:00 Resp 16 09/20/20 14:00 BP 129/72 09/20/20 14:00 Pulse Ox 97 09/20/20 14:00 Intake & Output 09/19/20 09/20/20 09/20/20 18:59 06:59 18:59 Other: Voiding Method Toilet - Labs CBC & Chem 7: 09/19/20 04:43 09/20/20 04:26 Labs: Abnormal Lab Results - Last 24 Hours (Table) 09/20/20 Range/Units 04:26 BUN/Creatinine Ratio 21.25 H (12.00-20.00) Ratio Assessment and Plan (1) Partial small bowel obstruction Current Visit: Yes Status: Acute Code(s): K56.600 - PARTIAL INTESTINAL OBSTRUCTION, UNSPECIFIED TO CAUSE SNOMED Code(s): 844374192
[2020-09-20] MEDS ORDERED: FAMOTIDINE 20 MG TAB PO PRN (14:15)
--- NOTE | 2020-09-20 14:15 | P.PN ---
Subjective Progress Note Date: 09/20/20 Patient presents the ED complaining of having generalized abdominal pain and nausea/vomiting/diarrhea for the past 3 days or so. Patient states that he has a colostomy, and he states he has had similar symptoms in the past. He states that he most recently had these symptoms from an ileus. Patient denies trauma or injury, fever or chills, headache, focal neuro deficit, chest pain, dyspnea, dizziness, back or flank pain, bloody or melanotic ostomy output, hematemesis, dysuria/hematuria/urinary frequency/urinary symptoms, or any other symptoms or complaints. CT of the abdomen done revealed ileus versus partial small bowel obstruction; patient is admitted to the hospital for further evaluation Patient with history of rectal cancer. Underwent low anterior resection developed a leak. Had a stent placed at the leak site which eventually eroded through the wall of the rectum partially. This led to an obstruction. Patient had a diverting ostomy. Ostomy was reversed and then only recently at [facility] 1-2 months ago had a loop colostomy again for a recurrent obstruction at the stent site. A new stent was placed while he was at [facility]. Patient is adamant that the loop colostomy be reversed. He is due for colonoscopy for screening purposes given his personal history of rectal cancer. 09/20/2020 Patient is seen and evaluated in follow-up with no acute overnight issues. Patient is being followed by surgery for possible small bowel obstruction versus ileus. Patient is having gas and very small amounts of stool noted in the ostomy. Patient is maintained on clear liquids and tolerating with intermittent periods of nausea although denies vomiting. Instructed the patient to get up out of the bed and sit up in the chair more often and open the windows as he was sitting in the dark requesting the door to be shut. Patient states he continues to have abdominal discomfort in the lower left and right quadrant and rates his pain 8 out of 10 on the pain scale. Sodium is 138 with a potassium of 3.7 and creatinine is 0.8. Patient continues to request pain medication. Ostomy nurse consulted and pending at this time. Review of systems: Constitutional: rePorts fatigue, no reports of fever, or chills Cardiovascular: No reports of chest pain or palpitations Respiratory: No reports of shortness of breath or cough GI: rePorts occasional nausea, no reports of vomiting, has loose stool noted in ostomy : No reports of dysuria or retention Neurovascular: No reports of weakness or numbness All medications have been reviewed Objective - Vital Signs Vital signs: Vital Signs Temp 98.3 F 09/20/20 08:00 Pulse 76 09/20/20 08:00 Resp 16 09/20/20 08:00 BP 149/77 09/20/20 08:00 Pulse Ox 98 09/20/20 08:00 Intake & Output 09/19/20 09/20/20 09/20/20 18:59 06:59 18:59 Other: Voiding Method Toilet - Exam Gen: This is a 59-year-old male awake, alert and oriented 3, well-developed, well-nourished, obese. HEENT: Head is atraumatic, normocephalic. Pupils equal, round. Sclerae is anicteric. NECK: Supple. No JVD. No lymphadenopathy. No thyromegaly. LUNGS: Clear to auscultation. No wheezes or rhonchi. No intercostal retractions. HEART: Regular rate and rhythm. No murmur. ABDOMEN: Soft. Obese. Bowel sounds are present. No masses. Lower right and left quadrant tenderness to palpation. Ostomy noted EXTREMITIES: No pedal edema. No calf tenderness. NEUROLOGICAL: Patient is awake, alert and oriented x3. Cranial nerves 2 through 12 are grossly intact. - Labs CBC & Chem 7: 09/19/20 04:43 09/20/20 04:26 Labs: Abnormal Lab Results - Last 24 Hours (Table) 09/20/20 Range/Units 04:26 BUN/Creatinine Ratio 21.25 H (12.00-20.00) Ratio Assessment and Plan Assessment: Possible ileus versus small partial bowel obstruction, surgery following Gastroesophageal reflux disease/gastritis: continue with Protonix daily Hypertension, will resume appropriate home medications and monitor vitals closely DVT prophylaxis: SCDs Full code Plan: Continue with current medications. Patient instructed and encouraged to increase activity as tolerated and encouraged oral intake as patient is maint ained on clear liquids although not eating very much. Patient continues to request IV pain medications and will discuss with surgery about treatment plan. Repeat abdominal x-ray shows persistent mild distention of small bowel which may reflect partial small bowel obstruction versus ileus with nonspecific bowel gas pattern with no evidence of pneumoperitoneum. Further recommendations to follow. Possible discharge in 24 hours.
[2020-09-20] MEDS: HYDROcodone/APAP 10-325MG 1 EACH TAB PO PRN ×2 (16:25→21:14)
[2020-09-21] MEDS: HYDROcodone/APAP 10-325MG 1 EACH TAB PO PRN ×2 (02:40→09:10)
[2020-09-21 08:55] VITALS: BP 121/75; PULSE 65; RESP 16; TEMP 98.2
[2020-09-21] MEDS: SODIUM CHLORIDE 0.9% 1,000 ML IV SCH (09:10)
--- NOTE | 2020-09-21 11:15 | P.PN ---
<Korin Rasmussen - Last Filed: 09/21/20 11:10> Subjective Progress Note Date: 09/21/20 CHIEF COMPLAINT: Abdominal pain HISTORY OF PRESENT ILLNESS: Patient is being followed for partial small bowel obstruction. He is currently tolerating clear liquid diet. He is still complaining of lower abdominal pain. He reports that he is still only passing a small amount of gas through his ostomy as well as having small amount of liquidy stool. He also reports nausea no vomiting. Afebrile no new labs PHYSICAL EXAM: VITAL SIGNS: Reviewed. GENERAL: Well-developed in no acute distress. HEENT: No sclera icterus. Extraocular movements grossly intact. Moist buccal mucosa. Head is atraumatic, normocephalic. ABDOMEN: Soft. Nondistended. Mild diffuse tenderness, ostomy functioning NEUROLOGIC: Alert and oriented. Cranial nerves II through XII grossly intact. ASSESSMENT: 1. Partial small bowel obstruction PLAN: -Continue clear liquid diet -Encouraged patient to ambulate Physician Eyelet Machine Operator note has been reviewed by physician. Signing provider agrees with the documented findings, assessment, and plan of care. Objective - Vital Signs Vital signs: Vital Signs Temp 98.2 F 09/21/20 08:00 Pulse 65 09/21/20 08:00 Resp 16 09/21/20 08:00 BP 121/75 09/21/20 08:00 Pulse Ox 97 09/21/20 08:00 Intake & Output 09/20/20 09/21/20 09/21/20 18:59 06:59 18:59 Intake Total 0 Balance 0 Intake: Oral 0 Other: Voiding Method Toilet # Voids 3 - Labs CBC & Chem 7: 09/19/20 04:43 09/20/20 04:26 <Dru Lawson - Last Filed: 09/21/20 16:43> Subjective As above. Patient tolerating liquid diet. Ostomy functioning. Still having chronic pain. Recommend increasing diet further. Objective - Vital Signs Vital signs: Vital Signs Temp 98.2 F 09/21/20 08:00 Pulse 65 09/21/20 08:00 Resp 16 09/21/20 08:00 BP 121/75 09/21/20 08:00 Pulse Ox 97 09/21/20 08:00 Intake & Output 01/25/21 01/26/21 01/26/21 18:59 06:59 18:59 Intake Total 0 Balance 0 Intake: Oral 0 Other: Voiding Method Toilet # Voids 3 - Labs CBC & Chem 7: 09/19/20 04:43 09/20/20 04:26 Assessment and Plan (1) Partial small bowel obstruction Status: Acute Code(s): K56.600 - PARTIAL INTESTINAL OBSTRUCTION, UNSPECIFIED TO CAUSE SNOMED Code(s): 256555891
--- NOTE | 2020-09-21 15:42 | P.DS ---
Providers Date of admission: 09/20/20 09:38 Expected date of discharge: 09/21/20 Attending physician: Antonina Rodriguez Consults: 09/18/20 20:20 Consult Physician Urgent Consulting Provider: Dru Lawson Reason/Comments: ileus vs. bowel obstruction Do you want consulting provider notified?: Yes Primary care physician: Josiah Connors, Hospital Course: Final Diagnosis Possible ileus versus small partial bowel obstruction Gastroesophageal reflux disease/gastritis Hypertension DVT prophylaxis Full code Discharge disposition Patient is being discharged in a stable condition with guarded prognosis to home. Patient will follow-up with Dr. Connors in the outpatient setting upon discharge. Patient to follow-up with surgery in the outpatient setting. Total time taken is greater than 35 minutes. Hospital course This is a 59-year-old male who was recently admitted with abdominal pain and CT shows possible partial small bowel obstruction versus ileus and was being closely monitored. Patient was seen and evaluated by surgery recommending conservative management. Patient instructed to follow-up outpatient with surgery to discuss possible reversal of ostomy although is currently not a candidate for this at this time. Patient is maintained on clear liquids and tolerating although isn't eating very much as he states this is not real food. Patient has not been having any nausea or vomiting and instructed to increase diet as tolerated. Patient continues to request IV pain medications although these have been discontinued and patient continues to be upset about pain medication adjustments. Had A lengthy discussion with the patient about the effects of pain medication of bowel habits and patient continues to be upset. Currently no reports of chest pain, shortness of breath, or palpitations. Patient is afebrile. No reports of nausea or vomiting and patient is tolerating diet. Patient will be discharged home today. On exam vital signs are stable. Temp is 98.2F, pulse is 65, respirations are 16, blood pressure is 121/75, oxygen saturation is 97% on room air. Cardio S1, S2 are muffled. Respiratory system shows diminished breath sounds at the bases with no wheezing or rhonchi noted. Abdomen is soft, obese and nontender. Nervous system shows no focal deficits. Please refer to medication reconciliation sheet for a list of medications. Patient Condition at Discharge: Stable Plan - Discharge Summary New Discharge Prescriptions: Continue Docusate [Colace] 100 mg PO DAILY PRN PRN Reason: Constipation HYDROcodone/APAP 10-325MG [[place] 10-325] 2 tab PO Q6H PRN #16 tab PRN Reason: Pain Famotidine [Pepcid] 20 mg PO BID PRN PRN Reason: Gi Upset Triamterene-Hctz 37.5-25Mg [Dyazide 37.5-25 Capsule] 1 cap PO DAILY Discharge Medication List Docusate [Colace] 100 mg PO DAILY PRN 12/14/19 [History] HYDROcodone/APAP 10-325MG [[place] 10-325] 2 tab PO Q6H PRN #16 tab 12/26/19 [Rx] Famotidine [Pepcid] 20 mg PO BID PRN 05/11/20 [History] Triamterene-Hctz 37.5-25Mg [Dyazide 37.5-25 Capsule] 1 cap PO DAILY 09/03/20 [History] Follow up Appointment(s)/Referral(s): Josiah Connors DO [Primary Care Provider] - 09/23/20 10:00 am Patient Instructions/Handouts: Acute Abdominal Pain (DC) Activity/Diet/Wound Care/Special Instructions: Activity Limited until follow-up Continue current diet and advance slowly as tolerated Follow-up with primary care provider upon discharge Follow-up with surgery in the outpatient setting Discharge Disposition: HOME SELF-CARE
== END 2020-09-21 12:52 | disposition home health service (06) | DRG 389 ==
LOC: EC 17:50 → 6NMEDSUR 20:25 → OBSVTOIN 09-20 09:38
PROVIDERS: ADMIT Hospitalist; ATTEND Hospitalist
DX: K56.600 Partial intestinal obstruction, unspecified as to cause (principal); Z68.41 Body mass index [BMI] 40.0-44.9, adult; Z93.3 Colostomy status; Z20.822 Contact with and (suspected) exposure to COVID-19; I10 Essential (primary) hypertension; K29.70 Gastritis, unspecified, without bleeding; K21.9 Gastro-esophageal reflux disease without esophagitis; M19.90 Unspecified osteoarthritis, unspecified site; G89.29 Other chronic pain; G62.9 Polyneuropathy, unspecified; D50.9 Iron deficiency anemia, unspecified; E66.9 Obesity, unspecified; M54.5 Low back pain; Z87.891 Personal history of nicotine dependence; Z79.899 Other long term (current) drug therapy; Z85.048 Personal history of other malignant neoplasm of rectum, rectosigmoid junction, and anus; Z92.3 Personal history of irradiation; Z92.21 Personal history of antineoplastic chemotherapy; Z90.49 Acquired absence of other specified parts of digestive tract; Z98.890 Other specified postprocedural states; Z88.5 Allergy status to narcotic agent; Z80.0 Family history of malignant neoplasm of digestive organs; Z83.3 Family history of diabetes mellitus; Z82.49 Family history of ischemic heart disease and other diseases of the circulatory system
CPT/HCPCS: 36415; 74019; 74177; 80048; 80053; 82150; 83690; 85025; 87635; 96361; 96374; 96375; 96376; 99285

== ENCOUNTER 2020-09-30 23:53 | Emergency (ER) | payer OTHER ==
[2020-10-01] VITALS: TEMP 98.3
[2020-10-01] MEDS ORDERED: SODIUM CHLORIDE 0.9% 500 ML 500 ML IV STA (00:12)
[2020-10-01] MEDS ORDERED: diphenhydrAMINE 50 MG/ML 1 ML VIAL IVP STA (00:12)
[2020-10-01] MEDS ORDERED: ONDANSETRON 4 MG/2 ML VIAL IVP STA (00:12)
[2020-10-01] MEDS ORDERED: SODIUM CHLORIDE 0.9% 1,000 ML IV STA (00:12)
[2020-10-01] MEDS ORDERED: HYDROmorphone 1 MG/ML 1 ML SYRINGE IVP STA ×2 (00:13→01:30)
[2020-10-01] MEDS ORDERED: FAMOTIDINE 20 MG/2 ML VIAL IV STA (00:13)
--- NOTE | 2020-10-01 00:18 | ED ---
Nausea/Vomiting/Diarrhea HPI - General Chief complaint: Nausea/Vomiting/Diarrhea Stated complaint: Abdominal Pain, Nausea Time Seen by Provider: 10/01/20 00:00 Source: patient Mode of arrival: ambulatory Limitations: no limitations - History of Present Illness Initial comments: 59 year-old female patient with past medical history significant for rectal c ancer s/p bowel resection, s/p chemoradiotherapy, with history of ileus and chronic abdominal pain presents to the emergency department for evaluation of generalized burning abdominal pain and vomiting that started a three days ago. States he is unable to keep down any food or fluid. Has tried to take his home pain medication, but is concerned he is not keeping it down. Denies fever or chills. Is reporting minimal output in his colostomy. Has not been able to follow up with his surgeon. Denies any new symptoms today, but feels like his pain is worse than usual. Patient denies any recent rash, cough, shortness of breath, chest pain, back pain, numbness, tingling, dizziness, weakness, hematur ia, dysuria, urinary urgency, urinary frequency, headache, visual changes, or any other complaints. - Related Data Home Medications Medication Instructions Recorded Confirmed Docusate [Colace] 100 mg PO DAILY PRN 12/14/19 09/18/20 Famotidine [Pepcid] 20 mg PO BID PRN 05/11/20 09/18/20 Triamterene-Hctz 37.5-25Mg 1 cap PO DAILY 09/03/20 09/18/20 [Dyazide 37.5-25 Capsule] Previous Rx's Medication Instructions Recorded HYDROcodone/APAP 10-325MG [[place] 2 tab PO Q6H PRN #16 tab 12/26/19 10-325] Allergies Allergy/AdvReac Type Severity Reaction Status Date / Time morphine Allergy Unknown Verified 09/30/20 23:58 Review of Systems ROS Statement: Those systems with pertinent positive or pertinent negative responses have been documented in the HPI. ROS Other: All systems not noted in ROS Statement are negative. Past Medical History Past Medical History: Cancer, GERD/Reflux, Osteoarthritis (OA) Additional Past Medical History / Comment(s): Pt admitted to [facility] on 12/01/19 with a fall/struck R side abdomin/abdominal pain/vomiting/decrease ostomy function/incisional abdominal hernia. Other hx: Rectal cancer 2017 with colectomy/ileostomy then reversal/chemo pills and radiation, partial colonic obstruction-pt sent to [place] and had diverting loop colostomy, chronic low back pain, arthritis in multiple joints, neuropathy bilateral feet/toes and R hand, iron deficiency anemia. History of Any Multi-Drug Resistant Organisms: None Reported Past Surgical History: Appendectomy, Bowel Resection, Orthopedic Surgery, Tonsillectomy Additional Past Surgical History / Comment(s): Colectomy/ileostomy with reversal, diverting loop colostomy, colonoscopies, L elbow bursa surgery, double hernia repair Past Anesthesia/Blood Transfusion Reactions: No Reported Reaction Past Psychological History: No Psychological Hx Reported Smoking Status: Former smoker Past Alcohol Use History: Rare Past Drug Use History: None Reported - Past Family History Mother Family Medical History: Cancer, Diabetes Mellitus Additional Family Medical History / Comment(s): from liver cancer Father Family Medical History: Myocardial Infarction ([place]) Additional Family Medical History / Comment(s): Pt has not spoken to his father in years and does not know much of his medical hx. General Exam Limitations: no limitations General appearance: alert, in no apparent distress, other (This is a well- developed, well-nourished adult male patient in no acute distress. Vital signs upon presentation are temperature 98.3F, pulse 104, respirations 18, blood pressure 162/95, pulse ox 97% on room air.) Respiratory exam: Present: normal lung sounds bilaterally. Absent: respiratory distress, wheezes, rales, rhonchi, stridor Cardiovascular Exam: Present: regular rate, normal rhythm, normal heart sounds. Absent: systolic murmur, diastolic murmur, rubs, gallop, clicks GI/Abdominal exam: Present: soft, tenderness (Generalized), normal bowel sounds, other (Colostomy to the left mid abdomen. There is healed midline surgical scar. ). Absent: distended, guarding, rebound, rigid Neurological exam: Present: alert, oriented X3, CN II-XII intact Psychiatric exam: Present: normal affect, normal mood Skin exam: Present: warm, dry, intact, normal color. Absent: rash Course Vital Signs 09/30/20 23:58 Temperature 98.3 F Pulse Rate 104 H Respiratory 18 Rate Blood Pressure 162/95 O2 Sat by Pulse 97 Oximetry Medical Decision Making - Medical Decision Making 59-year-old male patient with past medical history significant for rectal cancer status post chemo and radiotherapy, bowel resection with colostomy, chronic abdominal pain and recurrent ileus presents to the emergency department today for evaluation of abdominal pain and vomiting. Physical examination did reveal mild generalized abdominal tenderness. He is afebrile normal vital signs. Labs reviewed and are unremarkable. X-ray shows nonobstructive bowel gas pattern. I did discuss findings and results with the patient. He does report improvement of symptoms upon reevaluation. He'll be discharged follow up with his primary care physician for recheck in 1-2 days. He does have pain medicine and Zofran at home. Return parameters discussed in detail. He verbalizes understanding and agrees with this plan. Case discussed with my attending Dr. Burgess. - Lab Data Result diagrams: 10/01/20 00:20 10/01/20 00:20 Lab Results 10/01/20 10/01/20 10/01/20 Range/Units 00:20 00:20 00:20 WBC 6.9 (3.8-10.6) k/uL RBC 3.86 L (4.30-5.90) m/uL Hgb 10.5 L (13.0-17.5) gm/dL Hct 32.0 L (39.0-53.0) % MCV 82.8 (80.0-100.0) fL MCH 27.3 (25.0-35.0) pg MCHC 33.0 (31.0-37.0) g/dL RDW 15.1 (11.5-15.5) % Plt Count 280 (150-450) k/uL MPV 6.4 Neutrophils % 78 % Lymphocytes % 11 % Monocytes % 8 % Eosinophils % 1 % Basophils % 0 % Neutrophils # 5.4 (1.3-7.7) k/uL Lymphocytes # 0.8 L (1.0-4.8) k/uL Monocytes # 0.6 (0-1.0) k/uL Eosinophils # 0.1 (0-0.7) k/uL Basophils # 0.0 (0-0.2) k/uL Sodium 132 L (137-145) mmol/L Potassium 4.1 (3.5-5.1) mmol/L Chloride 102 (98-107) mmol/L Carbon Dioxide 24 (22-30) mmol/L Anion Gap 6 mmol/L BUN 14 (9-20) mg/dL Creatinine 0.74 (0.66-1.25) mg/dL Est GFR (CKD-EPI)AfAm >90 (>60 ml/min/1.73 sqM) Est GFR (CKD-EPI)NonAf >90 (>60 ml/min/1.73 sqM) Glucose 108 H (74-99) mg/dL Plasma Lactic Acid Gerry (0.7-2.0) mmol/L Calcium 9.6 (8.4-10.2) mg/dL Total Bilirubin 0.6 (0.2-1.3) mg/dL AST 17 (17-59) U/L ALT 9 (4-49) U/L Alkaline Phosphatase 59 (38-126) U/L Total Protein 7.2 (6.3-8.2) g/dL Albumin 3.9 (3.5-5.0) g/dL Lipase 93 (23-300) U/L Urine Color Colorless Urine Appearance Clear (Clear) Urine pH 5.5 (5.0-8.0) Ur Specific [place] 1.011 (1.001-1.035) Urine Protein Negative (Negative) Urine Glucose (UA) Negative (Negative) Urine Ketones Negative (Negative) Urine Blood Negative (Negative) Urine Nitrite Negative (Negative) Urine Bilirubin Negative (Negative) Urine Urobilinogen <2.0 (<2.0) mg/dL Ur Leukocyte Esterase Negative (Negative) 10/01/20 Range/Units 00:20 WBC (3.8-10.6) k/uL RBC (4.30-5.90) m/uL Hgb (13.0-17.5) gm/dL Hct (39.0-53.0) % MCV (80.0-100.0) fL MCH (25.0-35.0) pg MCHC (31.0-37.0) g/dL RDW (11.5-15.5) % Plt Count (150-450) k/uL MPV Neutrophils % % Lymphocytes % % Monocytes % % Eosinophils % % Basophils % % Neutrophils # (1.3-7.7) k/uL Lymphocytes # (1.0-4.8) k/uL Monocytes # (0-1.0) k/uL Eosinophils # (0-0.7) k/uL Basophils # (0-0.2) k/uL Sodium (137-145) mmol/L Potassium (3.5-5.1) mmol/L Chloride (98-107) mmol/L Carbon Dioxide (22-30) mmol/L Anion Gap mmol/L BUN (9-20) mg/dL Creatinine (0.66-1.25) mg/dL Est GFR (CKD-EPI)AfAm (>60 ml/min/1.73 sqM) Est GFR (CKD-EPI)NonAf (>60 ml/min/1.73 sqM) Glucose (74-99) mg/dL Plasma Lactic Acid Gerry 0.9 (0.7-2.0) mmol/L Calcium (8.4-10.2) mg/dL Total Bilirubin (0.2-1.3) mg/dL AST (17-59) U/L ALT (4-49) U/L Alkaline Phosphatase (38-126) U/L Total Protein (6.3-8.2) g/dL Albumin (3.5-5.0) g/dL Lipase (23-300) U/L Urine Color Urine Appearance (Clear) Urine pH (5.0-8.0) Ur Specific [place] (1.001-1.035) Urine Protein (Negative) Urine Glucose (UA) (Negative) Urine Ketones (Negative) Urine Blood (Negative) Urine Nitrite (Negative) Urine Bilirubin (Negative) Urine Urobilinogen (<2.0) mg/dL Ur Leukocyte Esterase (Negative) - Radiology Data Radiology results: report reviewed, image reviewed One view x-ray of the abdomen is obtained. Report was reviewed in its entirety. Impression by Dr. Estrada shows slightly more prominent small bowel gas is nonspecific and may represent mild enteritis normal variation. Mild stool blurred in the right colon. No radiographic evidence for high-grade bulb suction. Previous rectal stent in the central pelvis is stable in position and appearance. Disposition Clinical Impression: Abdominal pain, Vomiting Disposition: HOME SELF-CARE Condition: Good Instructions (If sedation given, give patient instructions): Acute Nausea and Vomiting (ED), Abdominal Pain (ED) Additional Instructions: Follow-up through primary care physician for recheck as soon as possible. He is home medications as directed. Return to the emergency department for any new, worsening, or concerning symptoms. Is patient prescribed a controlled substance at d/c from ED?: No Referrals: Josiah Connors DO [Primary Care Provider] - 1-2 days Time of Disposition: 01:31
[2020-10-01 01:00] LABS: Basophils % (A) 0 %; Eosinophils # (A) 0.1 k/uL (0-0.7); Eosinophils % (A) 1 %; HGB 10.5 gm/dL (13.0-17.5); Lymphocytes # (A) 0.8 k/uL (1.0-4.8); Lymphocytes % (A) 11 %; MCH 27.3 pg (25.0-35.0); MCV 82.8 fL (80.0-100.0); Mean Platelet Volume 6.4; Monocytes # (A) 0.6 k/uL (0-1.0); Monocytes % (A) 8 %; Neutrophils # (A) 5.4 k/uL (1.3-7.7); Neutrophils % (A) 78 %; Platelet Count 280 k/uL (150-450); RBC 3.86 m/uL (4.30-5.90); RDW 15.1 % (11.5-15.5); WBC 6.9 k/uL (3.8-10.6)
[2020-10-01 01:07] LABS: ALT 9 U/L (4-49); AST 17 U/L (17-59); African American GFR (CKD) >90 (>60 ml/min/1.73 sqM); Albumin 3.9 g/dL (3.5-5.0); Alkaline Phosphatase 59 U/L (38-126); Anion Gap 6 mmol/L; Blood Urea Nitrogen 14 mg/dL (9-20); Calcium 9.6 mg/dL (8.4-10.2); Carbon Dioxide 24 mmol/L (22-30); Chloride 102 mmol/L (98-107); Glucose 108 mg/dL (74-99); Lipase 93 U/L (23-300); Non-African American GFR(CKD) >90 (>60 ml/min/1.73 sqM); Potassium 4.1 mmol/L (3.5-5.1); Sodium 132 mmol/L (137-145); Total Bilirubin 0.6 mg/dL (0.2-1.3); Total Protein 7.2 g/dL (6.3-8.2)
--- NOTE | 2020-10-01 01:16 | XR ---
EXAM: XR Abdomen, 1 View CLINICAL HISTORY: ITS.REASON XR Reason: abd pain TECHNIQUE: Frontal supine view of the abdomen/pelvis. COMPARISON: 09/20/2020 FINDINGS: Intraperitoneal space: There is mild stool burden in the right abdomen with postsurgical suture material again identified. Gastrointestinal tract: A rectal stent is identified in the central pelvis. Scattered gas in nondilated small and large bowel is noted throughout the abdomen and pelvis. There is slightly more prominent small bowel gas in the left abdomen and central pelvis. Bones/joints: Severe degenerative changes of the right hip with a bone- on-bone appearance and sclerosis and subchondral cyst formation suggested. Degenerative changes of the inferior lumbar spine, stable. IMPRESSION: 1. Slightly more prominent small bowel gas is nonspecific and may represent mild enteritis or normal variation. Mild stool burden in the right colon. No radiographic evidence for high-grade bowel obstruction. 2. Previously noted rectal stent in the central pelvis is stable in position and appearance.
[2020-10-01 01:28] LABS: Appearance,Urine Clear (Clear); Bilirubin,Urine Negative (Negative); Blood,Urine Negative (Negative); Color,Urine Colorless; Glucose,Urine (UA) Negative (Negative); Ketones,Urine Negative (Negative); Leukocyte Esterase,Urine Negative (Negative); Nitrite,Urine Negative (Negative); PH, Urine 5.5 (5.0-8.0); Protein,Urine Negative (Negative); Specific Gravity,Urine 1.011 (1.001-1.035); Urobilinogen,Urine <2.0 mg/dL (<2.0)
[2020-10-01 01:42] VITALS: BP 139/73; PULSE 90; RESP 20
== END 2020-10-01 01:45 | disposition home or self-care (01) ==
LOC: EC 23:53
DX: R10.84 Generalized abdominal pain (principal); R11.10 Vomiting, unspecified; K21.9 Gastro-esophageal reflux disease without esophagitis; Z79.899 Other long term (current) drug therapy; Z88.5 Allergy status to narcotic agent; Z87.891 Personal history of nicotine dependence; Z85.048 Personal history of other malignant neoplasm of rectum, rectosigmoid junction, and anus; Z92.21 Personal history of antineoplastic chemotherapy; Z92.3 Personal history of irradiation; Z90.49 Acquired absence of other specified parts of digestive tract
CPT/HCPCS: 36415; 80053; 83605; 83690; 85025; 81003; 74018; 99284; 96374; 96375 ×3; 96376; 96361; J1200; J2405; J1170

== ENCOUNTER 2020-10-17 18:41 | Emergency (ER) | payer OTHER ==
[2020-10-17 18:45] VITALS: TEMP 98.5
[2020-10-17] MEDS ORDERED: PANTOPRAZOLE 40 MG/10 ML VIAL IVP STA (18:57)
[2020-10-17] MEDS ORDERED: ONDANSETRON 4 MG/2 ML VIAL IVP STA (18:57)
[2020-10-17] MEDS ORDERED: SODIUM CHLORIDE 0.9% 1,000 ML IV STA (18:57)
[2020-10-17] MEDS ORDERED: HYDROmorphone 1 MG/ML 1 ML SYRINGE IVP STA ×2 (19:07→21:04)
[2020-10-17 20:08] LABS: Basophils % (A) 0 %; Eosinophils % (A) 1 %; HCT 35.4 % (39.0-53.0); HGB 11.5 gm/dL (13.0-17.5); Lymphocytes # (A) 0.9 k/uL (1.0-4.8); Lymphocytes % (A) 13 %; MCH 26.7 pg (25.0-35.0); MCHC 32.5 g/dL (31.0-37.0); MCV 82.1 fL (80.0-100.0); Mean Platelet Volume 6.2; Monocytes # (A) 0.5 k/uL (0-1.0); Monocytes % (A) 7 %; Neutrophils # (A) 5.7 k/uL (1.3-7.7); Neutrophils % (A) 78 %; Platelet Count 314 k/uL (150-450); RBC 4.31 m/uL (4.30-5.90); RDW 14.6 % (11.5-15.5); WBC 7.3 k/uL (3.8-10.6)
[2020-10-17 20:19] LABS: ALT 12 U/L (4-49); AST 19 U/L (17-59); African American GFR (CKD) >90 (>60 ml/min/1.73 sqM); Albumin 4.2 g/dL (3.5-5.0); Alkaline Phosphatase 61 U/L (38-126); Anion Gap 9 mmol/L; Blood Urea Nitrogen 21 mg/dL (9-20); Calcium 9.8 mg/dL (8.4-10.2); Carbon Dioxide 23 mmol/L (22-30); Chloride 105 mmol/L (98-107); Glucose 113 mg/dL (74-99); Lipase 36 U/L (23-300); Non-African American GFR(CKD) >90 (>60 ml/min/1.73 sqM); Sodium 137 mmol/L (137-145); Total Bilirubin 0.7 mg/dL (0.2-1.3); Total Protein 7.8 g/dL (6.3-8.2)
--- NOTE | 2020-10-17 20:53 | XR ---
EXAMINATION TYPE: XR KUB DATE OF EXAM: 10/17/2020 COMPARISON: NONE HISTORY: Abdominal pain TECHNIQUE: 2 views upright FINDINGS: There is apparent rectal stent. There is no sign of pneumoperitoneum. Fecal pattern is norm al. I see no sign of a bowel obstruction. There are no pathologic calcifications over the kidneys. Darryl ny structures are intact. Lung bases are clear. IMPRESSION: Nonacute abdomen. No significant change.
--- NOTE | 2020-10-17 20:53 | ED ---
Abdominal Pain HPI - General Chief Complaint: Abdominal Pain Stated Complaint: abd pain, vomiting Time Seen by Provider: 10/17/20 18:47 Source: patient Mode of arrival: wheelchair Limitations: no limitations - History of Present Illness Initial Comments: 59-year-old male with history of rectal cancer, colostomy presents to the emergency department with a chief complaint of abdominal pain. He states that is somewhat typical for him to develop small bowel obstruction secondary to multiple abdominal surgeries. He does a colostomy seems to be producing enough fecal matter. Patient reports the pain started last night and is located in the lower abdominal region. He also reports nausea and multiple episodes of nonbilious vomiting. Denies hematuria, hematochezia or melena. denies any chest pain back pain shortness of breath. Denies any night sweats fevers or chills. States he takes [place] multiple times per day for the pain. However, this time it did not resolve his symptoms. - Related Data Home Medications Medication Instructions Recorded Confirmed Docusate [Colace] 100 mg PO DAILY PRN 12/14/19 09/18/20 Famotidine [Pepcid] 20 mg PO BID PRN 05/11/20 09/18/20 Triamterene-Hctz 37.5-25Mg 1 cap PO DAILY 09/03/20 09/18/20 [Dyazide 37.5-25 Capsule] Previous Rx's Medication Instructions Recorded HYDROcodone/APAP 10-325MG [[place] 2 tab PO Q6H PRN #16 tab 12/26/19 10-325] Allergies Allergy/AdvReac Type Severity Reaction Status Date / Time ketorolac [From Toradol] Allergy Nausea & Verified 10/17/20 18:45 Vomiting morphine Allergy Unknown Verified 10/17/20 18:45 Review of Systems ROS Statement: Those systems with pertinent positive or pertinent negative responses have been documented in the HPI. ROS Other: All systems not noted in ROS Statement are negative. Past Medical History Past Medical History: Cancer, GERD/Reflux, Osteoarthritis (OA) Additional Past Medical History / Comment(s): Pt admitted to [facility] on 12/01/19 with a fall/struck R side abdomin/abdominal pain/vomiting/decrease ostomy function/incisional abdominal hernia. Other hx: Rectal cancer 2017 with colecto my/ileostomy then reversal/chemo pills and radiation, partial colonic obstruction-pt sent to [place] and had diverting loop colostomy, chronic low back pain, arthritis in multiple joints, neuropathy bilateral feet/toes and R hand, iron deficiency anemia. History of Any Multi-Drug Resistant Organisms: None Reported Past Surgical History: Appendectomy, Bowel Resection, Orthopedic Surgery, Tonsillectomy Additional Past Surgical History / Comment(s): Colectomy/ileostomy with reversal, diverting loop colostomy, colonoscopies, L elbow bursa surgery, double hernia repair Past Anesthesia/Blood Transfusion Reactions: No Reported Reaction Past Psychological History: No Psychological Hx Reported Smoking Status: Former smoker Past Alcohol Use History: Rare Past Drug Use History: None Reported - Past Family History Mother Family Medical History: Cancer, Diabetes Mellitus Additional Family Medical History / Comment(s): from liver cancer Father Family Medical History: Myocardial Infarction ([place]) Additional Family Medical History / Comment(s): Pt has not spoken to his father in years and does not know much of his medical hx. General Exam Limitations: no limitations General appearance: alert, in no apparent distress, obese Head exam: Present: atraumatic, normocephalic, normal inspection Eye exam: Present: normal appearance, PERRL, EOMI Pupils: Present: normal accommodation ENT exam: Present: normal exam, normal oropharynx, mucous membranes moist Neck exam: Present: normal inspection, full ROM. Absent: tenderness Respiratory exam: Present: normal lung sounds bilaterally. Absent: respiratory distress, wheezes, rhonchi, stridor Cardiovascular Exam: Present: regular rate, normal rhythm, normal heart sounds GI/Abdominal exam: Present: soft, tenderness (mild diffuse abdominal tendern ess), normal bowel sounds, other (colostomy bag appears to be within normal limits. No signs of surrounding infection. There are some stool currently in the bag.). Absent: distended, guarding, rebound, rigid Extremities exam: Present: normal inspection, full ROM, normal capillary refill. Absent: tenderness, pedal edema, joint swelling Back exam: Present: normal inspection, full ROM. Absent: tenderness, CVA tenderness (R), CVA tenderness (L) Neurological exam: Present: alert, oriented X3, normal gait Psychiatric exam: Present: normal affect, normal mood Skin exam: Present: warm, dry, intact, normal color Course Vital Signs 10/17/20 10/17/20 10/17/20 18:43 19:37 20:36 Temperature 98.5 F Pulse Rate 109 H 83 83 Respiratory 18 18 18 Rate Blood Pressure 152/94 123/71 131/76 O2 Sat by Pulse 99 97 99 Oximetry 10/17/20 10/17/20 21:26 21:53 Temperature Pulse Rate 84 84 Respiratory 18 16 Rate Blood Pressure 137/80 124/73 O2 Sat by Pulse 99 99 Oximetry Medical Decision Making - Medical Decision Making 59-year-old male with history of rectal cancer,colostomy presents to emergency Department with chief complaint abdominal pain nausea vomiting. On physical examination, patient appears to diffuse abdominal tenderness to palpation. Colostomy appears to be working according. CBC mild anemia but this appears to be chronic. CMP UA unremarkable. Patient was given IV fluids and analgesia and antiemetics. patient has had multiple CAT scans in the recent months. For this reason, only KUB was obtained showing no signs of small bowel obstruction. On reevaluation patient reports improvement in the pain, however the nausea seems to persist. Patient was given Reglan and Benadryl. On reevaluation, patient does report a progress of this. He will follow-up with his primary care physician. Strict return parameters were thoroughly discussed the patient is understanding agreeable. Case discussed with - Lab Data Result diagrams: 10/17/20 19:37 10/17/20 19:37 Lab Results 10/17/20 10/17/20 10/17/20 Range/Units 19:37 19:37 20:36 WBC 7.3 (3.8-10.6) k/uL RBC 4.31 (4.30-5.90) m/uL Hgb 11.5 L (13.0-17.5) gm/dL Hct 35.4 L (39.0-53.0) % MCV 82.1 (80.0-100.0) fL MCH 26.7 (25.0-35.0) pg MCHC 32.5 (31.0-37.0) g/dL RDW 14.6 (11.5-15.5) % Plt Count 314 (150-450) k/uL MPV 6.2 Neutrophils % 78 % Lymphocytes % 13 % Monocytes % 7 % Eosinophils % 1 % Basophils % 0 % Neutrophils # 5.7 (1.3-7.7) k/uL Lymphocytes # 0.9 L (1.0-4.8) k/uL Monocytes # 0.5 (0-1.0) k/uL Eosinophils # 0.0 (0-0.7) k/uL Basophils # 0.0 (0-0.2) k/uL Sodium 137 (137-145) mmol/L Potassium 4.0 (3.5-5.1) mmol/L Chloride 105 (98-107) mmol/L Carbon Dioxide 23 (22-30) mmol/L Anion Gap 9 mmol/L BUN 21 H (9-20) mg/dL Creatinine 0.86 (0.66-1.25) mg/dL Est GFR (CKD-EPI)AfAm >90 (>60 ml/min/1.73 sqM) Est GFR (CKD-EPI)NonAf >90 (>60 ml/min/1.73 sqM) Glucose 113 H (74-99) mg/dL Calcium 9.8 (8.4-10.2) mg/dL Total Bilirubin 0.7 (0.2-1.3) mg/dL AST 19 (17-59) U/L ALT 12 (4-49) U/L Alkaline Phosphatase 61 (38-126) U/L Total Protein 7.8 (6.3-8.2) g/dL Albumin 4.2 (3.5-5.0) g/dL Lipase 36 (23-300) U/L Urine Color Yellow Urine Appearance Cloudy (Clear) Urine pH 5.5 (5.0-8.0) Ur Specific [place] 1.029 (1.001-1.035) Urine Protein 1+ H (Negative) Urine Glucose (UA) Negative (Negative) Urine Ketones Negative (Negative) Urine Blood Negative (Negative) Urine Nitrite Negative (Negative) Urine Bilirubin Negative (Negative) Urine Urobilinogen <2.0 (<2.0) mg/dL Ur Leukocyte Esterase Negative (Negative) Urine RBC 4 (0-5) /hpf Urine WBC 7 H (0-5) /hpf Urine Mucus Many H (None) /hpf Disposition Clinical Impression: Abdominal pain, Nausea & vomiting Disposition: HOME SELF-CARE Condition: Good Instructions (If sedation given, give patient instructions): Abdominal Pain (ED) Additional Instructions: Please return to the Emergency Department if symptoms worsen or any other concerns. Is patient prescribed a controlled substance at d/c from ED?: No Referrals: Freddy Burton MD [Primary Care Provider] - 1-2 days Time of Disposition: 21:25
[2020-10-17 20:58] LABS: Appearance,Urine Cloudy (Clear); Bilirubin,Urine Negative (Negative); Blood,Urine Negative (Negative); Color,Urine Yellow; Glucose,Urine (UA) Negative (Negative); Ketones,Urine Negative (Negative); Leukocyte Esterase,Urine Negative (Negative); Mucus,Urine Many /hpf; Nitrite,Urine Negative (Negative); PH, Urine 5.5 (5.0-8.0); Protein,Urine 1+ (Negative); RBC,Urine 4 /hpf (0-5); Specific Gravity,Urine 1.029 (1.001-1.035); Urobilinogen,Urine <2.0 mg/dL (<2.0); WBC,Urine 7 /hpf (0-5)
[2020-10-17] MEDS ORDERED: METOCLOPRAMIDE 5 MG/ML 2 ML VIAL IVP STA (21:24)
[2020-10-17] MEDS ORDERED: diphenhydrAMINE 50 MG/ML 1 ML VIAL IVP STA (21:24)
[2020-10-17 21:27] VITALS: PULSE 84
[2020-10-17 21:54] VITALS: BP 124/73; RESP 16
== END 2020-10-17 21:54 | disposition home or self-care (01) ==
LOC: EC 18:41
DX: R10.819 Abdominal tenderness, unspecified site (principal); R11.2 Nausea with vomiting, unspecified; K21.9 Gastro-esophageal reflux disease without esophagitis; Z79.899 Other long term (current) drug therapy; Z93.3 Colostomy status; Z87.891 Personal history of nicotine dependence; Z90.49 Acquired absence of other specified parts of digestive tract; Z88.5 Allergy status to narcotic agent; Z88.6 Allergy status to analgesic agent; Z85.048 Personal history of other malignant neoplasm of rectum, rectosigmoid junction, and anus
CPT/HCPCS: 36415; 80053; 83690; 85025; 81001; 74018; 99284; 96374; 96375 ×4; 96376; 96361 ×2; J1200; J2765; J2405; J1170; C9113

== ENCOUNTER 2020-10-18 13:50 | Emergency (ER) | payer OTHER ==
[2020-10-18 13:56] VITALS: TEMP 99
[2020-10-18] MEDS ORDERED: ONDANSETRON 4 MG/2 ML VIAL IVP STA ×2 (14:25→17:06)
[2020-10-18] MEDS ORDERED: SODIUM CHLORIDE 0.9% 1,000 ML IV STA (14:25)
[2020-10-18] MEDS ORDERED: diphenhydrAMINE 50 MG/ML 1 ML VIAL IVP STA (14:26)
[2020-10-18] MEDS ORDERED: HYDROmorphone 1 MG/ML 1 ML SYRINGE IVP STA ×2 (14:26→17:06)
--- NOTE | 2020-10-18 14:36 | ED ---
Abdominal Pain HPI <Cirilo Whitney - Last Filed: 10/18/20 17:53> - General Source: patient, RN notes reviewed Mode of arrival: wheelchair Limitations: no limitations <Ned Mendoza - Last Filed: 10/18/20 17:57> - General Chief Complaint: Abdominal Pain Stated Complaint: SOB,ABD pain - History of Present Illness Initial Comments: Patient is a 59-year-old male presents emergency complained of dental pain. He noted that he was just discharged yesterday with the same complaint but was instructed to come back pain got worse. Patient does have a history of a colostomy and noted that it was not producing stool today. He noted that he was sent home yesterday with pain management and antinausea medication and appeared to be doing better before discharging. Today he was in mild distress and pain while sitting up but an exam and interview. He noted that he had generalized abdominal pain to touch and pressure. She did note several bouts of vomiting today totaling 3 episodes. He denied any headache chest pain shortness of breath diarrhea fever fatigue chills melena hematochezia or hematemesis. (Ned Mendoza) - Related Data Home Medications Medication Instructions Recorded Confirmed Docusate [Colace] 100 mg PO DAILY PRN 12/14/19 09/18/20 Famotidine [Pepcid] 20 mg PO BID PRN 05/11/20 09/18/20 Triamterene-Hctz 37.5-25Mg 1 cap PO DAILY 09/03/20 09/18/20 [Dyazide 37.5-25 Capsule] Previous Rx's Medication Instructions Recorded HYDROcodone/APAP 10-325MG [[place] 2 tab PO Q6H PRN #16 tab 12/26/19 10-325] Allergies Allergy/AdvReac Type Severity Reaction Status Date / Time ketorolac [From Toradol] Allergy Nausea & Verified 10/18/20 13:56 Vomiting morphine Allergy Unknown Verified 10/18/20 13:56 Review of Systems ROS Other: All systems not noted in ROS Statement are negative. <Cirilo Whitney - Last Filed: 10/18/20 17:53> ROS Other: All systems not noted in ROS Statement are negative. <Ned Mendoza - Last Filed: 10/18/20 17:57> ROS Statement: Those systems with pertinent positive or pertinent negative responses have been documented in the HPI. Past Medical History Past Medical History: Cancer, GERD/Reflux, Osteoarthritis (OA) Additional Past Medical History / Comment(s): Pt admitted to [facility] on 12/01/19 with a fall/struck R side abdomin/abdominal pain/vomiting/decrease ostomy function/incisional abdominal hernia. Other hx: Rectal cancer 2017 with colectomy/ileostomy then reversal/chemo pills and radiation, partial colonic obstruction-pt sent to [place] and had diverting loop colostomy, chronic low back pain, arthritis in multiple joints, neuropathy bilateral feet/toes and R hand, iron deficiency anemia. History of Any Multi-Drug Resistant Organisms: None Reported Past Surgical History: Appendectomy, Bowel Resection, Orthopedic Surgery, Tonsillectomy Additional Past Surgical History / Comment(s): Colectomy/ileostomy with reversal, diverting loop colostomy, colonoscopies, L elbow bursa surgery, double hernia repair Past Anesthesia/Blood Transfusion Reactions: No Reported Reaction Past Psychological History: No Psychological Hx Reported Smoking Status: Former smoker Past Alcohol Use History: Rare Past Drug Use History: None Reported - Past Family History Mother Family Medical History: Cancer, Diabetes Mellitus Additional Family Medical History / Comment(s): from liver cancer Father Family Medical History: Myocardial Infarction ([place]) Additional Family Medical History / Comment(s): Pt has not spoken to his father in years and does not know much of his medical hx. <Ned Mendoza - Last Filed: 10/18/20 17:57> General Exam Limitations: no limitations General appearance: alert, in distress, obese Head exam: Present: atraumatic, normocephalic, normal inspection Eye exam: Present: normal appearance, PERRL, EOMI. Absent: scleral icterus, conjunctival injection, periorbital swelling ENT exam: Present: normal exam, mucous membranes moist Neck exam: Present: normal inspection. Absent: tenderness, meningismus, lymphadenopathy Respiratory exam: Present: normal lung sounds bilaterally. Absent: respiratory distress, wheezes, rales, rhonchi, stridor Cardiovascular Exam: Present: regular rate, normal rhythm, normal heart sounds. Absent: systolic murmur, diastolic murmur, rubs, gallop, clicks GI/Abdominal exam: Present: soft, tenderness (Generalized to palpation), normal bowel sounds, other (Colostomy was clean with no signs or symptoms of infection, bag was empty patient reported no stool production today.). Absent: distended, guarding, rebound, rigid Extremities exam: Present: normal inspection, full ROM, normal capillary refill. Absent: tenderness, pedal edema, joint swelling, calf tenderness Neurological exam: Present: alert, oriented X3, CN II-XII intact Psychiatric exam: Present: normal affect, normal mood Skin exam: Present: warm, dry, intact, normal color. Absent: rash <Ned Mendoza - Last Filed: 10/18/20 17:57> Course Vital Signs 10/18/20 10/18/20 13:53 17:27 Temperature 99 F Pulse Rate 101 H 90 Respiratory 20 18 Rate Blood Pressure 145/78 146/72 O2 Sat by Pulse 98 99 Oximetry Medical Decision Making - Lab Data Result diagrams: 10/18/20 14:47 10/18/20 14:47 <Cirilo Whitney - Last Filed: 10/18/20 17:53> - Lab Data Result diagrams: 10/18/20 14:47 10/18/20 14:47 - Radiology Data Radiology results: report reviewed, image reviewed <Ned Mendoza - Last Filed: 10/18/20 17:57> - Medical Decision Making Patient reevaluated by myself, Dr. Whitney. Patient has mild diffuse tenderness. Patient complains of discomfort and nausea still. Patient requests further pain medication. Case discussed with Dr. paul request discussing case with surgeon. Case discussed with Dr. Tucker covering for Dr. Coyle who does know this patient well. Exam and labs and CT report reviewed with him. He states patient can be discharged and should follow-up with Dr. Siegel at [facility]. (Cirilo Whitney) [age] male complaining of abdominal pain with lack of stool production and colostomy. Was recently discharged on 10/17/2020. Basic labs, 1 L normal saline bolus, KUB x-ray, pain medication and antiemetic medication given. Patient recently had CT scans done about one month ago. If x-ray comes back negative and patient is not improving CT of abdomen and pelvis ordered. Case discussed with Dr. Whitney, it was decided the patient to discharge home with follow-up to his GI surgeon at [facility]. Ned Campbell) - Lab Data Lab Results 10/18/20 10/18/20 10/18/20 Range/Units 14:47 14:47 14:47 WBC 7.2 (3.8-10.6) k/uL RBC 4.09 L (4.30-5.90) m/uL Hgb 10.6 L (13.0-17.5) gm/dL Hct 33.5 L (39.0-53.0) % MCV 82.1 (80.0-100.0) fL MCH 26.0 (25.0-35.0) pg MCHC 31.7 (31.0-37.0) g/dL RDW 14.6 (11.5-15.5) % Plt Count 314 (150-450) k/uL MPV 6.3 Neutrophils % 79 % Lymphocytes % 11 % Monocytes % 6 % Eosinophils % 2 % Basophils % 0 % Neutrophils # 5.7 (1.3-7.7) k/uL Lymphocytes # 0.8 L (1.0-4.8) k/uL Monocytes # 0.4 (0-1.0) k/uL Eosinophils # 0.2 (0-0.7) k/uL Basophils # 0.0 (0-0.2) k/uL Hypochromasia Slight Sodium 138 (137-145) mmol/L Potassium 4.4 (3.5-5.1) mmol/L Chloride 106 (98-107) mmol/L Carbon Dioxide 24 (22-30) mmol/L Anion Gap 8 mmol/L BUN 20 (9-20) mg/dL Creatinine 0.80 (0.66-1.25) mg/dL Est GFR (CKD-EPI)AfAm >90 (>60 ml/min/1.73 sqM) Est GFR (CKD-EPI)NonAf >90 (>60 ml/min/1.73 sqM) Glucose 103 H (74-99) mg/dL Plasma Lactic Acid Gerry 1.0 (0.7-2.0) mmol/L Calcium 9.5 (8.4-10.2) mg/dL Total Bilirubin 0.6 (0.2-1.3) mg/dL AST 21 (17-59) U/L ALT 11 (4-49) U/L Alkaline Phosphatase 53 (38-126) U/L Total Protein 7.2 (6.3-8.2) g/dL Albumin 4.0 (3.5-5.0) g/dL Amylase 42 (30-110) U/L Lipase 37 (23-300) U/L Urine Color Urine Appearance (Clear) Urine pH (5.0-8.0) Ur Specific [place] (1.001-1.035) Urine Protein (Negative) Urine Glucose (UA) (Negative) Urine Ketones (Negative) Urine Blood (Negative) Urine Nitrite (Negative) Urine Bilirubin (Negative) Urine Urobilinogen (<2.0) mg/dL Ur Leukocyte Esterase (Negative) 10/18/20 Range/Units 16:38 WBC (3.8-10.6) k/uL RBC (4.30-5.90) m/uL Hgb (13.0-17.5) gm/dL Hct (39.0-53.0) % MCV (80.0-100.0) fL MCH (25.0-35.0) pg MCHC (31.0-37.0) g/dL RDW (11.5-15.5) % Plt Count (150-450) k/uL MPV Neutrophils % % Lymphocytes % % Monocytes % % Eosinophils % % Basophils % % Neutrophils # (1.3-7.7) k/uL Lymphocytes # (1.0-4.8) k/uL Monocytes # (0-1.0) k/uL Eosinophils # (0-0.7) k/uL Basophils # (0-0.2) k/uL Hypochromasia Sodium (137-145) mmol/L Potassium (3.5-5.1) mmol/L Chloride (98-107) mmol/L Carbon Dioxide (22-30) mmol/L Anion Gap mmol/L BUN (9-20) mg/dL Creatinine (0.66-1.25) mg/dL Est GFR (CKD-EPI)AfAm (>60 ml/min/1.73 sqM) Est GFR (CKD-EPI)NonAf (>60 ml/min/1.73 sqM) Glucose (74-99) mg/dL Plasma Lactic Acid Gerry (0.7-2.0) mmol/L Calcium (8.4-10.2) mg/dL Total Bilirubin (0.2-1.3) mg/dL AST (17-59) U/L ALT (4-49) U/L Alkaline Phosphatase (38-126) U/L Total Protein (6.3-8.2) g/dL Albumin (3.5-5.0) g/dL Amylase (30-110) U/L Lipase (23-300) U/L Urine Color Yellow Urine Appearance Clear (Clear) Urine pH 5.5 (5.0-8.0) Ur Specific [place] 1.044 H (1.001-1.035) Urine Protein Trace H (Negative) Urine Glucose (UA) Negative (Negative) Urine Ketones Negative (Negative) Urine Blood Negative (Negative) Urine Nitrite Negative (Negative) Urine Bilirubin Negative (Negative) Urine Urobilinogen <2.0 (<2.0) mg/dL Ur Leukocyte Esterase Negative (Negative) - Radiology Data Previous metallic rectal stent. There are some air-fluid levels in small bowel loops in the left side of the abdomen dilated 5.3 cm correlate for ileus/enteritis or developing small bowel obstruction. Hepatosplenomegaly. Postprocedural postop changes. Abnormal presacral soft tissue may be related to rectal carcinoma. Difficult to exclude colitis. Correlate for possible ulcer disease. (Ned Mendoza) Disposition <Cirilo Whitney - Last Filed: 10/18/20 17:53> Is patient prescribed a controlled substance at d/c from ED?: No Time of Disposition: 17:57 <Ned Mendoza - Last Filed: 10/18/20 17:57> Clinical Impression: Abdominal pain, Nausea & vomiting Disposition: HOME SELF-CARE Condition: Stable Instructions (If sedation given, give patient instructions): Abdominal Pain (ED) Additional Instructions: Please return to the Emergency Department if symptoms worsen or any other concerns. Follow-up with surgeon at [facility] for ongoing abdominal pain, nausea, vomiting. Continue taking outpatient medications as prescribed. Increase fluid intake. Follow-up with primary care 1-2 days. Referrals: Freddy Burton MD [Primary Care Provider] - 1-2 days
[2020-10-18 14:56] LABS: Basophils % (A) 0 %; Eosinophils # (A) 0.2 k/uL (0-0.7); Eosinophils % (A) 2 %; HCT 33.5 % (39.0-53.0); HGB 10.6 gm/dL (13.0-17.5); Hypochromasia Slight; Lymphocytes # (A) 0.8 k/uL (1.0-4.8); Lymphocytes % (A) 11 %; MCHC 31.7 g/dL (31.0-37.0); MCV 82.1 fL (80.0-100.0); Mean Platelet Volume 6.3; Monocytes # (A) 0.4 k/uL (0-1.0); Monocytes % (A) 6 %; Neutrophils # (A) 5.7 k/uL (1.3-7.7); Neutrophils % (A) 79 %; Platelet Count 314 k/uL (150-450); RBC 4.09 m/uL (4.30-5.90); RDW 14.6 % (11.5-15.5); WBC 7.2 k/uL (3.8-10.6)
[2020-10-18 15:08] LABS: ALT 11 U/L (4-49); AST 21 U/L (17-59); African American GFR (CKD) >90 (>60 ml/min/1.73 sqM); Alkaline Phosphatase 53 U/L (38-126); Amylase 42 U/L (30-110); Anion Gap 8 mmol/L; Blood Urea Nitrogen 20 mg/dL (9-20); Calcium 9.5 mg/dL (8.4-10.2); Carbon Dioxide 24 mmol/L (22-30); Chloride 106 mmol/L (98-107); Glucose 103 mg/dL (74-99); Lipase 37 U/L (23-300); Non-African American GFR(CKD) >90 (>60 ml/min/1.73 sqM); Potassium 4.4 mmol/L (3.5-5.1); Sodium 138 mmol/L (137-145); Total Bilirubin 0.6 mg/dL (0.2-1.3); Total Protein 7.2 g/dL (6.3-8.2)
--- NOTE | 2020-10-18 15:16 | XR ---
EXAMINATION TYPE: XR KUB DATE OF EXAM: 10/18/2020 Comparison: 10/17/2020 Clinical History: 59-year-old male abdominal pain Findings: Dilated small bowel loops measure up to 5.3 cm with air-fluid levels in the left side of the abdomen. Some air within the right side of the colon. No evidence for free intraperitoneal air. End-stage joint right hip with bony erosion/remodeling along the superior weight-bearing aspect of th e joint. A metallic rectal stent is noted. Impression: Previous metallic rectal stent. There are some air-fluid levels and small bowel loops in the left stuart e of the abdomen, dilated up to 5.3 cm. Correlate for ileus/enteritis or developing small bowel obstr uction.
--- NOTE | 2020-10-18 16:37 | CT ---
EXAMINATION TYPE: CT abdomen pelvis w con DATE OF EXAM: 10/18/2020 COMPARISON: CT 09/18/2020 HISTORY: Abdominal pain and vomiting CT DLP: 1798.7 mGycm Automated exposure control for dose reduction was used. TECHNIQUE: Helical acquisition of images from the lung bases through the pelvis have been completed. CONTRAST: Performed without Oral Contrast and with IV Contrast, patient injected with 100 mL of Isovue 300. FINDINGS: There is a clip at the level of patient's ostomy in the left lower quadrant as on prior exa m likely for retention. Posterior diaphragmatic hernia contains fat on the right. LUNG BASES: No significant abnormality is appreciated. AORTA: No significant abnormality is appreciated. LIVER/GB: Liver is enlarged and shows low attenuation possibly due to hepatic steatosis, gallbladder is within normal limits PANCREAS: No significant abnormality is seen. SPLEEN: Borderline enlarged. ADRENALS: No significant abnormality is seen. KIDNEYS: Stable, low dense focus is present at the midpole the right kidney REPRODUCTIVE ORGANS: No significant abnormality is seen BOWEL: Abnormal soft tissue is again noted within the pelvis, there is a stent in place at the level of the rectum, coaxial stent has been placed with relative narrowing seen on sagittal image 77 simil ar to prior exam. Colonic interposition noted anterior to the liver as on prior. Postop changes are n oted to the bowel in the right upper quadrant as on prior. Question some colonic wall thickening. Pro ximal duodenum Gastroduodenal junction shows a focal air pocket within air-fluid level which may represent normal jonas wel content and shows a similar to appearance to previous exam, difficult to exclude wall thickening however. FREE AIR: No Free Air visible. ASCITES: None visible. PELVIC ADENOPATHY: None visualized. RETROPERITONEAL ADENOPATHY: No Retroperitoneal Adenopathy visible. URINARY BLADDER: No significant abnormality is seen. OSSEOUS STRUCTURES: There are marked osteoarthritic changes in the right hip, degenerative disc rizvi ges present in the lumbosacral junction, T12 shows mild anterior wedge compression deformity similar to prior. IMPRESSION: HEPATOSPLENOMEGALY. POSTPROCEDURAL POSTOP CHANGES, ABNORMAL PRESACRAL SOFT TISSUE MAY BE RELATED TO R ECTAL CARCINOMA. DIFFICULT TO EXCLUDE COLITIS. CORRELATE FOR POSSIBLE ULCER DISEASE.
[2020-10-18 16:49] LABS: Appearance,Urine Clear (Clear); Bilirubin,Urine Negative (Negative); Blood,Urine Negative (Negative); Color,Urine Yellow; Glucose,Urine (UA) Negative (Negative); Ketones,Urine Negative (Negative); Leukocyte Esterase,Urine Negative (Negative); Nitrite,Urine Negative (Negative); PH, Urine 5.5 (5.0-8.0); Protein,Urine Trace (Negative); Specific Gravity,Urine 1.044 (1.001-1.035); Urobilinogen,Urine <2.0 mg/dL (<2.0)
[2020-10-18 17:28] VITALS: BP 146/72; PULSE 90; RESP 18
== END 2020-10-18 18:38 | disposition home or self-care (01) ==
LOC: EC 13:50
DX: R10.819 Abdominal tenderness, unspecified site (principal); R11.2 Nausea with vomiting, unspecified; K21.9 Gastro-esophageal reflux disease without esophagitis; Z79.899 Other long term (current) drug therapy; Z87.891 Personal history of nicotine dependence; Z90.49 Acquired absence of other specified parts of digestive tract; Z92.21 Personal history of antineoplastic chemotherapy; Z85.048 Personal history of other malignant neoplasm of rectum, rectosigmoid junction, and anus; Z93.3 Colostomy status; Z92.3 Personal history of irradiation; Z88.5 Allergy status to narcotic agent; Z88.6 Allergy status to analgesic agent
CPT/HCPCS: 36415; 80053; 82150; 83605; 83690; 85025; 81003; 74018; 74177; 99284; 96374; 96375 ×2; 96376 ×2; 96361 ×2; J1200; J2405; J1170; Q9967

== ENCOUNTER 2020-10-28 17:41 | Inpatient (IN) | payer OTHER ==
[2020-10-28] MEDS ORDERED: SODIUM CHLORIDE 0.9% 1,000 ML IV STA (18:18)
[2020-10-28] MEDS ORDERED: PANTOPRAZOLE 40 MG/10 ML VIAL IVP STA (18:18)
[2020-10-28] MEDS ORDERED: ONDANSETRON 4 MG/2 ML VIAL IVP STA (18:18)
[2020-10-28] MEDS ORDERED: HYDROmorphone 1 MG/ML 1 ML SYRINGE IVP STA (18:19)
--- NOTE | 2020-10-28 18:22 | ED ---
General Adult HPI - General Chief complaint: Abdominal Pain Stated complaint: Abd pain/vomiting Time Seen by Provider: 10/28/20 18:02 Source: patient, RN notes reviewed Mode of arrival: ambulatory Limitations: no limitations - History of Present Illness Initial comments: Patient is a pleasant 89-year-old male presenting to the emergency Department with complaints of abdominal discomfort. Patient has had decreased output from his ostomy over the past 2-3 days. Patient has had abdominal discomfort over the past day or 2. Patient is having nausea vomiting 3-4 times daily, usually with attempted oral intake. Patient has had similar symptoms approximately 3-4 times previously however is unclear why. No fevers. - Related Data Home Medications Medication Instructions Recorded Confirmed Docusate [Colace] 100 mg PO DAILY PRN 12/14/19 09/18/20 Famotidine [Pepcid] 20 mg PO BID PRN 05/11/20 09/18/20 Triamterene-Hctz 37.5-25Mg 1 cap PO DAILY 09/03/20 09/18/20 [Dyazide 37.5-25 Capsule] Previous Rx's Medication Instructions Recorded HYDROcodone/APAP 10-325MG [[place] 2 tab PO Q6H PRN #16 tab 12/26/19 10-325] Allergies Allergy/AdvReac Type Severity Reaction Status Date / Time ketorolac [From Toradol] Allergy Nausea & Verified 10/28/20 17:57 Vomiting morphine Allergy Unknown Verified 10/28/20 17:57 Review of Systems ROS Statement: Those systems with pertinent positive or pertinent negative responses have been documented in the HPI. ROS Other: All systems not noted in ROS Statement are negative. Constitutional: Denies: fever Eyes: Denies: eye pain ENT: Denies: ear pain Respiratory: Denies: cough Cardiovascular: Denies: chest pain Endocrine: Denies: fatigue Gastrointestinal: Reports: abdominal pain, nausea, vomiting Genitourinary: Denies: dysuria Musculoskeletal: Denies: back pain Skin: Denies: rash Neurological: Denies: weakness Past Medical History Past Medical History: Cancer, GERD/Reflux, Osteoarthritis (OA) Additional Past Medical History / Comment(s): Pt admitted to [facility] on 12/01/19 with a fall/struck R side abdomin/abdominal pain/vomiting/decrease ostomy function/incisional abdominal hernia. Other hx: Rectal cancer 2017 with colectomy/ileostomy then reversal/chemo pills and radiation, partial colonic obstruction-pt sent to [place] and had diverting loop colostomy, chronic low back pain, arthritis in multiple joints, neuropathy bilateral feet/toes and R hand, iron deficiency anemia. History of Any Multi-Drug Resistant Organisms: None Reported Past Surgical History: Appendectomy, Bowel Resection, Orthopedic Surgery, Tonsillectomy Additional Past Surgical History / Comment(s): Colectomy/ileostomy with reve rsal, diverting loop colostomy, colonoscopies, L elbow bursa surgery, double hernia repair Past Anesthesia/Blood Transfusion Reactions: No Reported Reaction Past Psychological History: No Psychological Hx Reported Smoking Status: Former smoker Past Alcohol Use History: Rare Past Drug Use History: None Reported - Past Family History Mother Family Medical History: Cancer, Diabetes Mellitus Additional Family Medical History / Comment(s): from liver cancer Father Family Medical History: Myocardial Infarction ([place]) Additional Family Medical History / Comment(s): Pt has not spoken to his father in years and does not know much of his medical hx. General Exam Limitations: no limitations General appearance: alert, in no apparent distress, obese Head exam: Present: normocephalic Eye exam: Present: normal appearance Neck exam: Present: normal inspection Respiratory exam: Present: normal lung sounds bilaterally Cardiovascular Exam: Present: regular rate, normal rhythm GI/Abdominal exam: Present: soft, tenderness (Mild to moderate diffuse tenderness, more so in the epigastric), normal bowel sounds. Absent: distended, rebound, rigid, pulsatile mass Extremities exam: Present: normal inspection Neurological exam: Present: alert Psychiatric exam: Present: normal affect, normal mood Skin exam: Present: normal color Course Vital Signs 10/28/20 10/28/20 17:53 20:06 Temperature 98.2 F Pulse Rate 123 H 98 Respiratory 18 18 Rate Blood Pressure 138/87 162/90 O2 Sat by Pulse 97 99 Oximetry Medical Decision Making - Medical Decision Making Patient reevaluated. Patient complaining of return of discomfort. Abdominal exam remains soft with mild/moderate diffuse tenderness. Patient updated on results. Patient would like to be admitted and have more pain medication. Case discussed with Dr. Rivero, covering for Dr. Sandoval, who admits for Dr. Rangel, and she will admit. - Lab Data Result diagrams: 10/28/20 18:29 10/28/20 18:29 Lab Results 10/28/20 10/28/20 10/28/20 Range/Units 18:29 18:29 18:29 WBC 7.5 (3.8-10.6) k/uL RBC 4.46 (4.30-5.90) m/uL Hgb 11.7 L (13.0-17.5) gm/dL Hct 36.0 L (39.0-53.0) % MCV 80.6 (80.0-100.0) fL MCH 26.2 (25.0-35.0) pg MCHC 32.5 (31.0-37.0) g/dL RDW 14.5 (11.5-15.5) % Plt Count 325 (150-450) k/uL MPV 6.2 Neutrophils % 80 % Lymphocytes % 10 % Monocytes % 6 % Eosinophils % 3 % Basophils % 0 % Neutrophils # 6.0 (1.3-7.7) k/uL Lymphocytes # 0.8 L (1.0-4.8) k/uL Monocytes # 0.4 (0-1.0) k/uL Eosinophils # 0.2 (0-0.7) k/uL Basophils # 0.0 (0-0.2) k/uL Hypochromasia Slight PT 10.6 (9.0-12.0) sec INR 1.0 (<1.2) APTT 23.6 (22.0-30.0) sec Sodium 140 (137-145) mmol/L Potassium 4.1 (3.5-5.1) mmol/L Chloride 105 (98-107) mmol/L Carbon Dioxide 24 (22-30) mmol/L Anion Gap 11 mmol/L BUN 21 H (9-20) mg/dL Creatinine 0.71 (0.66-1.25) mg/dL Est GFR (CKD-EPI)AfAm >90 (>60 ml/min/1.73 sqM) Est GFR (CKD-EPI)NonAf >90 (>60 ml/min/1.73 sqM) Glucose 122 H (74-99) mg/dL Calcium 10.1 (8.4-10.2) mg/dL Total Bilirubin 0.6 (0.2-1.3) mg/dL AST 21 (17-59) U/L ALT 12 (4-49) U/L Alkaline Phosphatase 60 (38-126) U/L Total Protein 7.9 (6.3-8.2) g/dL Albumin 4.5 (3.5-5.0) g/dL Amylase 38 (30-110) U/L Lipase 34 (23-300) U/L - Radiology Data Radiology results: report reviewed Disposition Clinical Impression: Abdominal pain Disposition: ADMITTED IP TO THIS HOSP Is patient prescribed a controlled substance at d/c from ED?: No Referrals: Freddy Burton MD [Primary Care Provider] - 1-2 days Decision Time: 20:25
[2020-10-28 18:46] LABS: Basophils % (A) 0 %; Eosinophils # (A) 0.2 k/uL (0-0.7); Eosinophils % (A) 3 %; HGB 11.7 gm/dL (13.0-17.5); Hypochromasia Slight; Lymphocytes # (A) 0.8 k/uL (1.0-4.8); Lymphocytes % (A) 10 %; MCH 26.2 pg (25.0-35.0); MCHC 32.5 g/dL (31.0-37.0); MCV 80.6 fL (80.0-100.0); Mean Platelet Volume 6.2; Monocytes # (A) 0.4 k/uL (0-1.0); Monocytes % (A) 6 %; Neutrophils % (A) 80 %; Platelet Count 325 k/uL (150-450); RBC 4.46 m/uL (4.30-5.90); RDW 14.5 % (11.5-15.5); WBC 7.5 k/uL (3.8-10.6)
[2020-10-28 18:57] LABS: Partial Thromboplastin Time 23.6 sec (22.0-30.0); Prothrombin Time 10.6 sec (9.0-12.0)
[2020-10-28 19:05] LABS: ALT 12 U/L (4-49); AST 21 U/L (17-59); African American GFR (CKD) >90 (>60 ml/min/1.73 sqM); Albumin 4.5 g/dL (3.5-5.0); Alkaline Phosphatase 60 U/L (38-126); Amylase 38 U/L (30-110); Anion Gap 11 mmol/L; Blood Urea Nitrogen 21 mg/dL (9-20); Calcium 10.1 mg/dL (8.4-10.2); Carbon Dioxide 24 mmol/L (22-30); Chloride 105 mmol/L (98-107); Glucose 122 mg/dL (74-99); Lipase 34 U/L (23-300); Non-African American GFR(CKD) >90 (>60 ml/min/1.73 sqM); Potassium 4.1 mmol/L (3.5-5.1); Sodium 140 mmol/L (137-145); Total Bilirubin 0.6 mg/dL (0.2-1.3); Total Protein 7.9 g/dL (6.3-8.2)
--- NOTE | 2020-10-28 19:59 | CT ---
EXAMINATION TYPE: CT abdomen pelvis wo con DATE OF EXAM: 10/28/2020 COMPARISON: CT 10/18/2019 HISTORY: Abdomial pain, groin pain and rectal pain. CT DLP: 1598.4 mGycm Automated exposure control for dose reduction was used. TECHNIQUE: Helical acquisition of images was performed from the lung bases through the pelvis. FINDINGS: LUNG BASES: No acute process. LIVER/GB: Liver is enlarged and shows low attenuation possibly due to hepatic steatosis, gallbladder is within normal limits PANCREAS: No significant abnormality is seen. SPLEEN: Borderline enlarged. ADRENALS: No significant abnormality is seen. KIDNEYS: Stable, low dense focus is present at the midpole the right kidney PERITONEAL CAVITY: No abnormal fluid collections or pneumoperitoneum. RETROPERITONEAL ADENOPATHY: None visualized REPRODUCTIVE ORGANS: No significant abnormality is seen URINARY BLADDER: No significant abnormality is seen. PELVIC ADENOPATHY: None visualized. OSSEOUS STRUCTURES: The sacrum shows nonspecific heterogeneous attenuation, as seen on the prior jeannie dy. BOWEL: The extensive presacral soft tissue process above the pelvic diaphragm has mildly decreased i n its overall volume when compared to prior study. At the upper margin of this presacral process, the small gas bubble seen on the prior study are redemonstrated, but they are smaller in volume than the prior study. The previously seen stent/coaxial stent at the level of the rectum and distal sigmoid h as similar appearance as on the prior study. In the abdomen, scattered jejunal loops are top normal in caliber, measuring 3 cm, mildly increased c ompared the prior study. This is a nonspecific finding. IMPRESSION: 1. NONSPECIFIC JEJUNAL LOOP PROMINENCE, TOP NORMAL IN CALIBER. 2. EVIDENCE OF MILD INTERVAL PELVIC IMPROVEMENT.
[2020-10-28] MEDS ORDERED: HYDROmorphone 0.5 MG/0.5 ML SYRINGE IVP PRN (20:25)
[2020-10-28] MEDS ORDERED: NALOXONE 0.4 MG/ML 1 ML VIAL IV PRN (20:25)
[2020-10-28] MEDS: SODIUM CHLORIDE 0.9% 1,000 ML IV SCH (21:08)
[2020-10-28] MEDS: ONDANSETRON 4 MG/2 ML VIAL IVP PRN (21:09)
[2020-10-28] MEDS: HYDROmorphone 1 MG/ML 1 ML SYRINGE IVP PRN (22:25)
[2020-10-29] MEDS: HYDROmorphone 1 MG/ML 1 ML SYRINGE IVP PRN ×7 (01:30→22:02)
[2020-10-29] MEDS: SODIUM CHLORIDE 0.9% 1,000 ML IV SCH ×3 (04:49→21:22)
[2020-10-29] MEDS: ONDANSETRON 4 MG/2 ML VIAL IVP PRN ×2 (09:30→18:18)
[2020-10-29] MEDS: PANTOPRAZOLE 40 MG/10 ML VIAL IV SCH (09:31)
--- NOTE | 2020-10-29 13:51 | P.GSCN ---
History of Present Illness Consult date: 10/29/20 History of present illness: CHIEF COMPLAINT: Abdominal pain HISTORY OF PRESENT ILLNESS: This is a 59-year-old male with a known history of rectal cancer. He underwent a lower anterior resection and developed a leak. He had a stent placed at the leak site which eventually eroded through the wall of the rectum partially. This led to an obstruction. Patient had a diverting ostomy. Ostomy was reversed at [facility] and he then had a loop colostomy again for a recurrent obstruction at the stent site. Patient was hospitalized in August for partial small bowel obstruction. He presented to the emergency room with complaints of abdominal pain for the last 3 days. He reports a diffuse pain but more in the right lower quadrant. He does report some nausea and vomiting and decreased output through his ostomy. He reports a decreased appetite. Patient has had similar symptoms in the past. He had computed tomography scan of the abdomen and pelvis completed showing nonspecific jejunal loop prominence. White count is normal. He's afebrile. He is r equesting more pain medication. PAST MEDICAL HISTORY: See list. PAST SURGICAL HISTORY: See list. MEDICATIONS: See list. ALLERGIES: See list. SOCIAL HISTORY: No illicit drug use. REVIEW OF SYSTEMS: CONSTITUTIONAL: Denies fever or chills. HEENT: Denies blurred vision, vision changes, or eye pain. Denies hemoptysis CARDIOVASCULAR: Denies chest pain or pressure. RESPIRATORY: No shortness of breath. GASTROINTESTINAL: See HPI for pertinent findings HEMATOLOGIC: Denies bleeding disorders. GENITOURINARY: Denies any blood in urine or increased urinary frequency. SKIN: Denies pruitis. Denies rash. PHYSICAL EXAM: VITAL SIGNS: Reviewed GENERAL: Well-developed in no acute distress. HEENT: No sclera icterus. Extraocular movements grossly intact. Moist buccal mucosa. Head is atraumatic, normocephalic. No nasal drainage. ABDOMEN: Soft. Obese. Nondistended. Diffuse abdominal tenderness. Ostomy with brownish liquid. Stoma pink in color NEUROLOGIC: Alert and oriented. Cranial nerves II through XII grossly intact. LABORATORY DATA: WBC 7.5 Hgb 11.7 platelets 325 IMAGING: computed tomography scan of the abdomen and pelvis completed showing nonspecific jejunal loop prominence, top normal in caliber. Evidence of mild low pelvic improvement ASSESSMENT: 1. Abdominal pain with computed tomography scan showing nonspecific jejunal loop prominence 2. History of rectal cancer PLAN: -Continue supportive care -Advance diet to full liquids -Continue IV fluids -Continue pain medication as needed Thank you for this consultation Physician Ground Defence Officer note has been reviewed by physician. Signing provider agrees with the documented findings, assessment, and plan of care. Past Medical History Past Medical History: Cancer, GERD/Reflux, Osteoarthritis (OA) Additional Past Medical History / Comment(s): Pt admitted to [facility] on 12/01/19 with a fall/struck R side abdomin/abdominal pain/vomiting/decrease ostomy function/incisional abdominal hernia. Other hx: Rectal cancer 2017 with colectomy/ileostomy then reversal/chemo pills and radiation, partial colonic obstruction-pt sent to [place] and had diverting loop colostomy, chronic low back pain, arthritis in multiple joints, neuropathy bilateral feet/toes and R hand, iron deficiency anemia. History of Any Multi-Drug Resistant Organisms: None Reported Past Surgical History: Appendectomy, Bowel Resection, Orthopedic Surgery, Tonsillectomy Additional Past Surgical History / Comment(s): Colectomy/ileostomy with reversal, diverting loop colostomy, colonoscopies, L elbow bursa surgery, double hernia repair Past Anesthesia/Blood Transfusion Reactions: No Reported Reaction Past Psychological History: No Psychological Hx Reported Additional Psychological History / Comment(s): Pt resides in an apartment alone. Pt has a cane which he uses prn. He drives. Smoking Status: Never smoker Past Alcohol Use History: Rare Additional Past Alcohol Use History / Comment(s): Pt started smoking as a teen and quit in 1998. Past Drug Use History: None Reported - Past Family History Mother Family Medical History: Cancer, Diabetes Mellitus Additional Family Medical History / Comment(s): from liver cancer Father Family Medical History: Myocardial Infarction ([place]) Additional Family Medical History / Comment(s): Pt has not spoken to his father in years and does not know much of his medical hx. Medications and Allergies Home Medications Medication Instructions Recorded Confirmed Type Docusate [Colace] 100 mg PO DAILY PRN 12/14/19 10/28/20 History HYDROcodone/APAP 10-325MG [[place] 2 tab PO Q6H PRN #16 tab 12/26/19 10/28/20 Rx 10-325] Famotidine [Pepcid] 20 mg PO BID PRN 05/11/20 10/28/20 History Triamterene-Hctz 37.5-25Mg 1 cap PO DAILY 09/03/20 10/28/20 History [Dyazide 37.5-25 Capsule] Allergies Allergy/AdvReac Type Severity Reaction Status Date / Time ketorolac [From Toradol] Allergy Nausea & Verified 10/28/20 20:38 Vomiting morphine Allergy Unknown Verified 10/28/20 20:38 Surgical - Exam Vital Signs Temp Pulse Resp BP Pulse Ox 98.2 F 123 H 18 138/87 97 10/28/20 17:53 10/28/20 17:53 10/28/20 17:53 10/28/20 17:53 10/28/20 17:53 Results - Labs 10/28/20 18:29 10/28/20 18:29 Abnormal Lab Results - Last 24 Hours (Table) 10/28/20 10/28/20 Range/Units 18:29 18:29 Hgb 11.7 L (13.0-17.5) gm/dL Hct 36.0 L (39.0-53.0) % Lymphocytes # 0.8 L (1.0-4.8) k/uL BUN 21 H (9-20) mg/dL Glucose 122 H (74-99) mg/dL Diabetes panel 10/28/20 Range/Units 18:29 Sodium 140 (137-145) mmol/L Potassium 4.1 (3.5-5.1) mmol/L Chloride 105 (98-107) mmol/L Carbon Dioxide 24 (22-30) mmol/L BUN 21 H (9-20) mg/dL Creatinine 0.71 (0.66-1.25) mg/dL Glucose 122 H (74-99) mg/dL Calcium 10.1 (8.4-10.2) mg/dL AST 21 (17-59) U/L ALT 12 (4-49) U/L Alkaline Phosphatase 60 (38-126) U/L Total Protein 7.9 (6.3-8.2) g/dL Albumin 4.5 (3.5-5.0) g/dL Calcium panel 10/28/20 Range/Units 18:29 Calcium 10.1 (8.4-10.2) mg/dL Albumin 4.5 (3.5-5.0) g/dL Pituitary panel 10/28/20 Range/Units 18:29 Sodium 140 (137-145) mmol/L Potassium 4.1 (3.5-5.1) mmol/L Chloride 105 (98-107) mmol/L Carbon Dioxide 24 (22-30) mmol/L BUN 21 H (9-20) mg/dL Creatinine 0.71 (0.66-1.25) mg/dL Glucose 122 H (74-99) mg/dL Calcium 10.1 (8.4-10.2) mg/dL Adrenal panel 10/28/20 Range/Units 18:29 Sodium 140 (137-145) mmol/L Potassium 4.1 (3.5-5.1) mmol/L Chloride 105 (98-107) mmol/L Carbon Dioxide 24 (22-30) mmol/L BUN 21 H (9-20) mg/dL Creatinine 0.71 (0.66-1.25) mg/dL Glucose 122 H (74-99) mg/dL Calcium 10.1 (8.4-10.2) mg/dL Total Bilirubin 0.6 (0.2-1.3) mg/dL AST 21 (17-59) U/L ALT 12 (4-49) U/L Alkaline Phosphatase 60 (38-126) U/L Total Protein 7.9 (6.3-8.2) g/dL Albumin 4.5 (3.5-5.0) g/dL
--- NOTE | 2020-10-29 18:39 | P.HPIM ---
History of Present Illness H&P Date: 10/29/20 Chief Complaint: Abdominal pain/vomiting 89-year-old male presenting to the emergency Department with complaints of abdominal discomfort. Patient has had decreased output from his ostomy over the past 2-3 days. Patient has had abdominal discomfort over the past day or 2. P atient is having nausea vomiting 3-4 times daily, usually with attempted oral intake. Patient has had similar symptoms approximately 3-4 times previously however is unclear why. No fevers. Workup in ED with blood work revealed a WBC of 7.5, hemoglobin 11.7; chemical profile revealed sodium of 140, potassium 4.1, BUN/creatinine of 21/0.7 and blood glucose of 122 CT of abdomen and pelvis was done which reveals nonspecific judgment no loop prominence; patient is admitted for evaluation by surgical service Review of Systems REVIEW OF SYSTEMS: CONSTITUTIONAL: No fever, no malaise, no fatigue. HEENT: No recent visual problems or hearing problems. Denied any sore throat. CARDIOVASCULAR: No chest pain, orthopnea, PND, no palpitations, no syncope. PULMONARY: No shortness of breath, no cough, no hemoptysis. GASTROINTESTINAL: No diarrhea, no nausea, no vomiting, no abdominal pain. NEUROLOGICAL: No headaches, no weakness, no numbness. HEMATOLOGICAL: Denies any bleeding or petechiae. GENITOURINARY: Denies any burning micturition, frequency, or urgency. MUSCULOSKELETAL/RHEUMATOLOGICAL: Denies any joint pain, swelling, or any muscle pain. ENDOCRINE: Denies any polyuria or polydipsia. The rest of the 14-point review of systems is negative. Past Medical History Past Medical History: Cancer, GERD/Reflux, Osteoarthritis (OA) Additional Past Medical History / Comment(s): Pt admitted to [facility] on 12/01/19 with a fall/struck R side abdomin/abdominal pain/vomiting/decrease ostomy function/incisional abdominal hernia. Other hx: Rectal cancer 2017 with colect julieth/ileostomy then reversal/chemo pills and radiation, partial colonic obstruction-pt sent to [place] and had diverting loop colostomy, chronic low back pain, arthritis in multiple joints, neuropathy bilateral feet/toes and R hand, iron deficiency anemia. History of Any Multi-Drug Resistant Organisms: None Reported Past Surgical History: Appendectomy, Bowel Resection, Orthopedic Surgery, Tonsillectomy Additional Past Surgical History / Comment(s): Colectomy/ileostomy with reversal, diverting loop colostomy, colonoscopies, L elbow bursa surgery, double hernia repair Past Anesthesia/Blood Transfusion Reactions: No Reported Reaction Past Psychological History: No Psychological Hx Reported Additional Psychological History / Comment(s): Pt resides in an apartment alone. Pt has a cane which he uses prn. He drives. Smoking Status: Never smoker Past Alcohol Use History: Rare Additional Past Alcohol Use History / Comment(s): Pt started smoking as a teen and quit in 1998. Past Drug Use History: None Reported - Past Family History Mother Family Medical History: Cancer, Diabetes Mellitus Additional Family Medical History / Comment(s): from liver cancer Father Family Medical History: Myocardial Infarction ([place]) Additional Family Medical History / Comment(s): Pt has not spoken to his father in years and does not know much of his medical hx. Medications and Allergies Home Medications Medication Instructions Recorded Confirmed Type Docusate [Colace] 100 mg PO DAILY PRN 12/14/19 10/28/20 History HYDROcodone/APAP 10-325MG [[place] 2 tab PO Q6H PRN #16 tab 12/26/19 10/28/20 Rx 10-325] Famotidine [Pepcid] 20 mg PO BID PRN 05/11/20 10/28/20 History Triamterene-Hctz 37.5-25Mg 1 cap PO DAILY 09/03/20 10/28/20 History [Dyazide 37.5-25 Capsule] Allergies Allergy/AdvReac Type Severity Reaction Status Date / Time ketorolac [From Toradol] Allergy Nausea & Verified 10/28/20 20:38 Vomiting morphine Allergy Unknown Verified 10/28/20 20:38 Physical Exam Vitals: Vital Signs Temp Pulse Pulse Resp BP BP Pulse Ox 10/29/20 12:50 97.8 F 78 18 133/80 99 10/29/20 12:08 79 14 10/29/20 07:27 97.9 F 78 14 128/71 100 10/29/20 07:00 98.0 F 79 16 124/81 99 10/29/20 04:50 98.2 F 84 22 138/77 98 10/29/20 01:28 98.4 F 10/29/20 01:00 95 16 158/68 100 10/28/20 22:15 95 18 133/96 98 10/28/20 20:06 98 18 162/90 99 10/28/20 17:53 98.2 F 123 H 18 138/87 97 Intake and Output 10/28/20 10/29/20 10/29/20 22:59 06:59 14:59 Output Total 1 Balance -1 Output: Stool 1 Other: # Voids 1 Weight 125.191 kg 125.191 kg Limitations: no limitations General appearance: alert, in no apparent distress, obese Head exam: Present: normocephalic Eye exam: Present: normal appearance Neck exam: Present: normal inspection Respiratory exam: Present: normal lung sounds bilaterally Cardiovascular Exam: Present: regular rate, normal rhythm GI/Abdominal exam: Present: soft, tenderness (Mild to moderate diffuse tenderness, more so in the epigastric), normal bowel sounds. Absent: distended, rebound, rigid, pulsatile mass Extremities exam: Present: normal inspection Neurological exam: Present: alert Psychiatric exam: Present: normal affect, normal mood Skin exam: Present: normal color Results CBC & Chem 7: 10/28/20 18:29 10/28/20 18:29 Labs: Abnormal Lab Results - Last 24 Hours (Table) 10/28/20 10/28/20 Range/Units 18:29 18:29 Hgb 11.7 L (13.0-17.5) gm/dL Hct 36.0 L (39.0-53.0) % Lymphocytes # 0.8 L (1.0-4.8) k/uL BUN 21 H (9-20) mg/dL Glucose 122 H (74-99) mg/dL Thrombosis Risk Factor Assmnt - Choose All That Apply Each Factor Represents 1 point: Age 41-60 years, Obesity (BMI >25) Other Risk Factors: No Thrombosis Risk Factor Assessment Total Risk Factor Score: 2 Thrombosis Risk Factor Assessment Level: Low Risk Assessment and Plan Assessment: 1. Abdominal pain - CT of the abdomen reveals nonspecific vaginal prominence - Surgery is consulted and recommending to start patient on clear liquid diet and continue with supportive care; continue with IV fluids - Pain controlled 2. GERD/gastritis; patient started on Protonix 40 mg IV daily 3. Right hip pain - No history of fall or injury - We will order hip x-ray with further recommendations pending results 4. History of colon cancer DVT prophylaxis; SCDs CODE STATUS; full code
--- NOTE | 2020-10-29 19:40 | XR ---
EXAMINATION TYPE: XR Hip Bilateral Complete DATE OF EXAM: 10/29/2020 COMPARISON: NONE HISTORY: Chronic hip pain TECHNIQUE: 4 views FINDINGS: Left hip joint spaces are well-maintained. Proximal left femur appears normal. There is severe narrowing of the right hip joint space with some collapse of the articular surface of the femoral head. There is erosion of the right acetabulum. There is stent in the rectum. 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 Normal left hip joint . There is progression of the sclerosis and collapse of the articular surface of the femoral head com pared to old exam of 09/20/2020.
[2020-10-30] MEDS: HYDROmorphone 1 MG/ML 1 ML SYRINGE IVP PRN ×8 (00:55→23:28)
[2020-10-30] MEDS: ONDANSETRON 4 MG/2 ML VIAL IVP PRN (04:04)
[2020-10-30] MEDS: SODIUM CHLORIDE 0.9% 1,000 ML IV SCH ×2 (04:59→14:34)
[2020-10-30 08:41] LABS: African American GFR (CKD) >90 (>60 ml/min/1.73 sqM); Anion Gap 9 mmol/L; Blood Urea Nitrogen 19 mg/dL (9-20); Calcium 8.9 mg/dL (8.4-10.2); Carbon Dioxide 18 mmol/L (22-30); Chloride 111 mmol/L (98-107); Glucose 85 mg/dL (74-99); Non-African American GFR(CKD) >90 (>60 ml/min/1.73 sqM); Sodium 138 mmol/L (137-145)
[2020-10-30] MEDS: PANTOPRAZOLE 40 MG/10 ML VIAL IV SCH (08:59)
[2020-10-30 09:57] LABS: Basophils % (A) 0 %; Eosinophils # (A) 0.1 k/uL (0-0.7); Eosinophils % (A) 1 %; HCT 31.1 % (39.0-53.0); Hypochromasia Moderate; Lymphocytes # (A) 0.7 k/uL (1.0-4.8); Lymphocytes % (A) 9 %; MCH 26.3 pg (25.0-35.0); MCHC 31.8 g/dL (31.0-37.0); MCV 82.9 fL (80.0-100.0); Monocytes # (A) 0.7 k/uL (0-1.0); Monocytes % (A) 9 %; Neutrophils # (A) 5.6 k/uL (1.3-7.7); Neutrophils % (A) 79 %; Platelet Count 206 k/uL (150-450); RBC 3.76 m/uL (4.30-5.90); RDW 14.5 % (11.5-15.5)
[2020-10-30 10:14] LABS: HGB 9.9 gm/dL (13.0-17.5)
--- NOTE | 2020-10-30 11:57 | P.PN ---
Progress Note - Text Progress Note Date: 10/30/20 The patient is resting comfortably in bed. He appears to have adequate pain control. On exam vital signs are stable. Abdomen is soft. Stoma is functioning. Chronic abdominal pain related to previous surgeries for rectal cancer. Patient will be observed this point.
--- NOTE | 2020-10-30 18:38 | P.PN ---
Subjective Progress Note Date: 10/30/20 Principal diagnosis: Abdominal pain with computed tomography scan showing nonspecific jejunal loop prominence History of rectal cancer GI bleed 59-year-old male presenting to the emergency Department with complaints of abdominal discomfort. Patient has had decreased output from his ostomy over the past 2-3 days. Patient has had abdominal discomfort over the past day or 2. Bobo walker is having nausea vomiting 3-4 times daily, usually with attempted oral intake. Patient has had similar symptoms approximately 3-4 times previously however is unclear why. No fevers. Workup in ED with blood work revealed a WBC of 7.5, hemoglobin 11.7; chemical profile revealed sodium of 140, potassium 4.1, BUN/creatinine of 21/0.7 and blood glucose of 122 CT of abdomen and pelvis was done which reveals nonspecific judgment no loop prominence; patient is admitted for evaluation by surgical service 10/30/2020 Patient is seen and evaluated in room at bedside; continues to complain of severe abdominal pain requiring IV narcotics complain of bloody stools in colos phyllis bag We will continue with supportive care; shouldn't has been made nothing by mouth; we will continue with IV fluids and consult GI for further recommendations Objective - Vital Signs Vital signs: Vital Signs Temp 99.1 F 10/30/20 07:00 Pulse 97 10/30/20 07:00 Resp 18 10/30/20 07:00 BP 142/76 10/30/20 07:00 Pulse Ox 91 L 10/30/20 07:00 Intake & Output 10/29/20 10/30/20 10/30/20 18:59 06:59 18:59 Intake Total 240 Output Total 1 3 Balance -1 237 Weight 125.191 kg Intake: Oral 240 Output: Stool 1 3 Other: # Voids 1 1 - Exam - Constitutional General appearance: Present: average body habitus, cooperative, no acute di stress - EENT Eyes: Present: anicteric sclerae, EOMI, PERRLA, normal appearance ENT: Present: hearing grossly normal, normal oropharynx Ears: bilateral: normal - Neck Neck: Present: normal ROM. Absent: lymphadenopathy, rigidity, thyromegaly Carotids: negative: bruit present Thyroid: bilateral: normal size, negative: enlarged, nodule - Respiratory Respiratory: bilateral: CTA, negative: rales, rhonchi, wheezing - Cardiovascular Rhythm: regular Heart sounds: normal: S1, S2 Abnormal Heart Sounds: Absent: systolic murmur, diastolic murmur - Gastrointestinal General gastrointestinal: Present: normal bowel sounds, soft. Absent: distended, organomegaly, tenderness - Genitourinary Genitourinary Comment(s): deferred - Integumentary Integumentary: Present: normal turgor. Absent: jaundiced, rash, ulcer - Neurologic Neurologic: Present: CNII-XII intact. Absent: focal deficits - Musculoskeletal Musculoskeletal: Present: gait normal, strength equal bilaterally - Psychiatric Psychiatric: Present: A&O x's 3, appropriate affect, intact judgment & insight - Labs CBC & Chem 7: 10/30/20 06:39 10/30/20 06:39 Labs: Abnormal Lab Results - Last 24 Hours (Table) 10/30/20 10/30/20 Range/Units 06:39 06:39 RBC 3.76 L (4.30-5.90) m/uL Hgb 9.9 L D (13.0-17.5) gm/dL Hct 31.1 L (39.0-53.0) % Lymphocytes # 0.7 L (1.0-4.8) k/uL Potassium 6.0 H (3.5-5.1) mmol/L Chloride 111 H (98-107) mmol/L Carbon Dioxide 18 L (22-30) mmol/L Creatinine 0.61 L (0.66-1.25) mg/dL Assessment and Plan Assessment: 1. Abdominal pain - CT of the abdomen reveals nonspecific vaginal prominence - Surgery is consulted and recommending to start patient on clear liquid diet and continue with supportive care; continue with IV fluids - Pain controlled 2. GERD/gastritis; patient started on Protonix 40 mg IV daily 3. Right hip pain - No history of fall or injury - We will order hip x-ray with further recommendations pending results 4. History of colon cancer DVT prophylaxis; SCDs CODE STATUS; full code
[2020-10-31] MEDS: HYDROmorphone 1 MG/ML 1 ML SYRINGE IVP PRN ×7 (02:26→20:28)
[2020-10-31 09:04] LABS: Basophils # (A) 0 X 10*3/uL (0.00-0.10); Basophils % (A) 0 %; Eosinophils # (A) 0 X 10*3/uL (0.04-0.35); Eosinophils % (A) 0 %; HCT 29.9 % (39.6-50.0); HGB 9.1 g/dL (13.0-17.0); Lymphocytes # (A) 0.41 X 10*3/uL (0.90-5.00); Lymphocytes % (A) 10.9 %; MCH 25.9 pg (27.0-32.0); MCHC 30.4 g/dL (32.0-37.0); MCV 84.9 fL (80.0-97.0); Mean Platelet Volume 9.9 fL (9.5-12.2); Monocytes # (A) 0.52 X 10*3/uL (0.20-1.00); Monocytes % (A) 13.8 %; Neutrophils # (A) 2.81 X 10*3/uL (1.80-7.70); Neutrophils % (A) 74.8 %; Platelet Count 164 X 10*3/uL (140-440); RBC 3.52 X 10*6/uL (4.40-5.60); RDW 13.8 % (11.5-14.5); WBC 3.76 X 10*3/uL (4.50-10.00)
[2020-10-31 09:40] LABS: African American GFR (CKD) 121.4 (60.0-200.0); Anion Gap 6.3 mmol/L (4.00-12.00); BUN/Creat Ratio 15.71 Ratio (12.00-20.00); Calcium 8.5 mg/dL (8.7-10.3); Carbon Dioxide 23.7 mmol/L (21.6-31.8); Non-African American GFR(CKD) 104.8 (60.0-200.0); Potassium 3.4 mmol/L (3.5-5.5)
[2020-10-31] MEDS ORDERED: Potassium Replacement Protocol 1 EACH MISC MISCELLANE PRN (10:06)
[2020-10-31] MEDS: POTASSIUM CHLORIDE ER 20 MEQ TAB.ER PO SCH ×2 (10:26→11:38)
--- NOTE | 2020-10-31 13:30 | P.CONS ---
History of Present Illness - Reason for Consult Consult date: 10/31/20 GI bleed Requesting physician: Kai Tucker - Chief Complaint Abdominal pain - History of Present Illness 59-year-old male with a history of GERD, chronic abdominal pain, iron deficiency anemia and rectal cancer who presented to the hospital for abdominal pain. Patient has long-standing history of abdominal pain in the past and has been seen in the hospital on numerous occasions for such complaint. He reports diffuse pain across his abdomen describes as sharp and severe in nature. Previously he has a history of rectal cancer in 2017 for which she underwent lower anterior resection for which she developed a leak and had stent placement. The patient also underwent chemotherapy for his cancer. The patient developed an obstruction and subsequently had formation of a diverting ostomy. Previously he was seen for partial small bowel obstruction and 08/2020. He presented on current admission for abdominal pain as stated. Subsequently the patient has been noted to have some dark output from his ostomy and there is concern for possible GI bleed. Hemoglobin which was 11 on presentation currently 9.1 from 9.9 previously. He denies any history of peptic ulcer disease and denies NSAID use. It is unclear if he is had an EGD in the past. Computed tomography scan of the abdomen showed some jejunal prominence. Review of Systems REVIEW OF SYSTEMS: CONSTITUTIONAL: Denies any fevers, chills, weight change or fatigue. CARDIOVASCULAR: Denies any chest pain, palpitations high or low blood pressures RESPIRATORY: Denies any shortness of breath, hemoptysis or cough. GENITOURINARY: No dysuria or hematuria. MUSCULOSKELETAL: No weakness reported. SKIN: Denies any new rashes or lesions, jaundice or pallor. PSYCHIATRIC: Denies any depression or anxiety. NEUROLOGY: Denies headache, denies any new focal deficits. EARS/NOSE/THROAT: No recent hearing change, congestion, nasal discharge or sore throat. EYES: No pain in eyes, discharge or change in vision. GASTROINTESTINAL: As per HPI. Past Medical History Past Medical History: Cancer, GERD/Reflux, Osteoarthritis (OA) Additional Past Medical History / Comment(s): Pt admitted to [facility] on 12/01/19 with a fall/struck R side abdomin/abdominal pain/vomiting/decrease ostomy fun ction/incisional abdominal hernia. Other hx: Rectal cancer 2017 with colectomy/ileostomy then reversal/chemo pills and radiation, partial colonic obstruction-pt sent to [facility] and had diverting loop colostomy, chronic low back pain, arthritis in multiple joints, neuropathy bilateral feet/toes and R hand, iron deficiency anemia. History of Any Multi-Drug Resistant Organisms: None Reported Past Surgical History: Appendectomy, Bowel Resection, Orthopedic Surgery, Tonsillectomy Additional Past Surgical History / Comment(s): Colectomy/ileostomy with reversal, diverting loop colostomy, colonoscopies, L elbow bursa surgery, double hernia repair Past Anesthesia/Blood Transfusion Reactions: No Reported Reaction Past Psychological History: No Psychological Hx Reported Additional Psychological History / Comment(s): Pt resides in an apartment alone. Pt has a cane which he uses prn. He drives. Smoking Status: Never smoker Past Alcohol Use History: Rare Additional Past Alcohol Use History / Comment(s): Pt started smoking as a teen and quit in 1998. Past Drug Use History: None Reported - Past Family History Mother Family Medical History: Cancer, Diabetes Mellitus Additional Family Medical History / Comment(s): from liver cancer Father Family Medical History: Myocardial Infarction ([place]) Additional Family Medical History / Comment(s): Pt has not spoken to his father in years and does not know much of his medical hx. Medications and Allergies Home Medications Medication Instructions Recorded Confirmed Type Docusate [Colace] 100 mg PO DAILY PRN 12/14/19 10/28/20 History HYDROcodone/APAP 10-325MG [[facility] 2 tab PO Q6H PRN #16 tab 12/26/19 10/28/20 Rx 10-325] Famotidine [Pepcid] 20 mg PO BID PRN 05/11/20 10/28/20 History Triamterene-Hctz 37.5-25Mg 1 cap PO DAILY 09/03/20 10/28/20 History [Dyazide 37.5-25 Capsule] Allergies Allergy/AdvReac Type Severity Reaction Status Date / Time ketorolac [From Toradol] Allergy Nausea & Verified 10/28/20 20:38 Vomiting morphine Allergy Unknown Verified 10/28/20 20:38 Physical Exam Vitals: Vital Signs Temp Pulse Resp BP Pulse Ox 10/31/20 07:00 98.7 F 96 18 126/74 96 10/31/20 02:30 99.1 F 83 19 152/73 95 10/31/20 02:00 99 15 10/30/20 20:00 99 15 10/30/20 19:12 98.9 F 99 15 130/83 98 10/30/20 15:00 99 F 101 H 18 154/77 98 Intake and Output 10/30/20 10/31/20 10/31/20 22:59 06:59 14:59 Intake Total 240 Output Total 2 51 Balance 238 -51 Intake: Oral 240 Output: Stool 2 51 Other: # Voids 1 1 On physical examination, patient appears comfortable in no apparent distress. HEAD: Normocephalic, atraumatic. EYES: No scleral icterus. No conjunctival injection. MOUTH: No lesions, tongue midline. NECK: Trachea midline, no gross abnormalities. CHEST: Clear to auscultation with no wheezing or rhonchi appreciated. HEART: S1-S2 appreciated. ABDOMEN: Soft, obese, healthy appearing ostomy with large well-healed midline scar. Bowel sounds are positive. No organomegaly. No guarding or rigidity. EXTREMITIES: No pedal edema. SKIN: No rashes, no jaundice. NEUROLOGIC: Alert and oriented x3. No focal deficits. Results CBC & Chem 7: 10/31/20 06:04 10/31/20 06:04 Labs: Abnormal Lab Results - Last 24 Hours (Table) 10/31/20 10/31/20 Range/Units 06:04 06:04 WBC 3.76 L (4.50-10.00) X 10*3/uL RBC 3.52 L (4.40-5.60) X 10*6/uL Hgb 9.1 L (13.0-17.0) g/dL Hct 29.9 L (39.6-50.0) % MCH 25.9 L (27.0-32.0) pg MCHC 30.4 L (32.0-37.0) g/dL Lymphocytes # 0.41 L (0.90-5.00) X 10*3/uL Eosinophils # 0 L (0.04-0.35) X 10*3/uL Potassium 3.4 L (3.5-5.5) mmol/L Calcium 8.5 L (8.7-10.3) mg/dL CT scan - abdomen: report reviewed (Computed tomography scan of the abdomen with some jejunal prominence noted) Assessment and Plan (1) Melena Narrative/Plan: 59-year-old male with a history of rectal cancer diagnosed in 2017 for which he underwent surgical resection and chemotherapy with subsequent reversal and then formation of an ostomy secondary to obstruction who presented with abdominal pain. Patient has chronic abdominal pain at baseline. He denies any history of peptic ulcer disease is unclear if he has had an EGD in the past. Patient's hemoglobin 11.7 on presentation subsequent fell to 9.1. His been noted to be having some dark output from his ostomy. Concern is for possible upper GI bleed with differential including peptic ulcer disease, gastritis, esophagitis, AVM or other etiology. Computed tomography scan of the abdomen did show some jejunal prominence. Current Visit: Yes Status: Acute Code(s): K92.1 - MELENA SNOMED Code(s): 6423052 (2) Abdominal pain Current Visit: Yes Status: Acute Code(s): R10.9 - UNSPECIFIED ABDOMINAL PAIN SNOMED Code(s): 70937483 (3) History of creation of ostomy Current Visit: No Status: Acute Code(s): Z93.9 - ARTIFICIAL OPENING STATUS, UNSPECIFIED SNOMED Code(s): 375551523 (4) History of rectal cancer Current Visit: No Status: Acute Code(s): Z85.048 - PRSNL HX OF MALIG NEOPLM OF RECTUM, RECTOSIG JUNCT, AND ANUS SNOMED Code(s): 655987793 Plan: Supportive care Nothing by mouth Continue monitor hemoglobin and hematocrit and transfuse as needed Protonix 40 mg twice daily added Surgical service has been consulted to see the patient and is following Nothing by mouth after midnight with plan for EGD tomorrow to rule out GI bleed with all the risks, benefits and possible, patient's of the procedure to into the patient length. His questions answered to his satisfaction Thank you for allowing us to participate in the care of the patient
[2020-10-31] MEDS: PANTOPRAZOLE 40 MG/10 ML VIAL IVP SCH ×2 (13:55→20:28)
--- NOTE | 2020-10-31 15:58 | P.PN ---
Subjective Progress Note Date: 10/31/20 Principal diagnosis: Abdominal pain with computed tomography scan showing nonspecific jejunal loop prominence History of rectal cancer GI bleed 59-year-old male presenting to the emergency Department with complaints of abdominal discomfort. Patient has had decreased output from his ostomy over the past 2-3 days. Patient has had abdominal discomfort over the past day or 2. Bobo walker is having nausea vomiting 3-4 times daily, usually with attempted oral intake. Patient has had similar symptoms approximately 3-4 times previously however is unclear why. No fevers. Workup in ED with blood work revealed a WBC of 7.5, hemoglobin 11.7; chemical profile revealed sodium of 140, potassium 4.1, BUN/creatinine of 21/0.7 and blood glucose of 122 CT of abdomen and pelvis was done which reveals nonspecific judgment no loop prominence; patient is admitted for evaluation by surgical service 10/30/2020 Patient is seen and evaluated in room at bedside; continues to complain of severe abdominal pain requiring IV narcotics complain of bloody stools in colos phyllis bag We will continue with supportive care; shouldn't has been made nothing by mouth; we will continue with IV fluids and consult GI for further recommendations 10/31/2020 Patient is seen sitting up in bed; continues to report of severe pain requesting pain medication be increased; continues to have bloody stools and colostomy Vital signs reveal blood pressure 167/79; remains afebrile Vital signs are reviewed and reveal slow downward trend of hemoglobin which is down to 9.1 this morning from 11.7 on admission Hyperkalemia resolved from potassium level of 6.0 yesterday down to 3.6 Patient is evaluated by GI and recommended to remain nothing by mouth with supportive care and close monitoring of H&H; patient is started on Protonix 40 mg twice a day; plan is possible EGD tomorrow to rule out GI bleed Objective - Vital Signs Vital signs: Vital Signs Temp 98.4 F 10/31/20 14:35 Pulse 74 10/31/20 14:35 Resp 18 10/31/20 14:35 BP 167/79 10/31/20 14:35 Pulse Ox 98 10/31/20 14:35 Intake & Output 10/30/20 10/31/20 10/31/20 18:59 06:59 18:59 Intake Total 240 200 Output Total 53 4 Balance 240 -53 196 Intake: Oral 240 200 Output: Stool 53 4 Other: # Voids 4 1 - Exam - Constitutional General appearance: Present: average body habitus, cooperative, no acute distress - EENT Eyes: Present: anicteric sclerae, EOMI, PERRLA, normal appearance ENT: Present: hearing grossly normal, normal oropharynx Ears: bilateral: normal - Neck Neck: Present: normal ROM. Absent: lymphadenopathy, rigidity, thyromegaly Carotids: negative: bruit present Thyroid: bilateral: normal size, negative: enlarged, nodule - Respiratory Respiratory: bilateral: CTA, negative: rales, rhonchi, wheezing - Cardiovascular Rhythm: regular Heart sounds: normal: S1, S2 Abnormal Heart Sounds: Absent: systolic murmur, diastolic murmur - Gastrointestinal General gastrointestinal: Present: normal bowel sounds, soft. Absent: distended, organomegaly, tenderness - Genitourinary Genitourinary Comment(s): deferred - Integumentary Integumentary: Present: normal turgor. Absent: jaundiced, rash, ulcer - Neurologic Neurologic: Present: CNII-XII intact. Absent: focal deficits - Musculoskeletal Musculoskeletal: Present: gait normal, strength equal bilaterally - Psychiatric Psychiatric: Present: A&O x's 3, appropriate affect, intact judgment & insight - Labs CBC & Chem 7: 10/31/20 06:04 10/31/20 12:37 Labs: Abnormal Lab Results - Last 24 Hours (Table) 10/31/20 10/31/20 Range/Units 06:04 06:04 WBC 3.76 L (4.50-10.00) X 10*3/uL RBC 3.52 L (4.40-5.60) X 10*6/uL Hgb 9.1 L (13.0-17.0) g/dL Hct 29.9 L (39.6-50.0) % MCH 25.9 L (27.0-32.0) pg MCHC 30.4 L (32.0-37.0) g/dL Lymphocytes # 0.41 L (0.90-5.00) X 10*3/uL Eosinophils # 0 L (0.04-0.35) X 10*3/uL Potassium 3.4 L (3.5-5.5) mmol/L Calcium 8.5 L (8.7-10.3) mg/dL Assessment and Plan Assessment: 1. Abdominal pain - CT of the abdomen reveals nonspecific vaginal prominence - Surgery is consulted and recommending to start patient on clear liquid diet and continue with supportive care; continue with IV fluids - Pain controlled 2. GERD/gastritis; patient started on Protonix 40 mg IV daily 3. Right hip pain - No history of fall or injury - We will order hip x-ray with further recommendations pending results 4. History of colon cancer DVT prophylaxis; SCDs CODE STATUS; full code
--- NOTE | 2020-10-31 17:21 | P.PN ---
Progress Note - Text Progress Note Date: 10/31/20 The patient is still complaining of abdominal pain. He has had several bowel movements was colostomy. On exam vitals are stable. Abdomen soft. Chronic abdominal pain related to previous surgeries and rectal cancer. Patient be reevaluated by Dr. Coyle in the a.m.
[2020-11-01] MEDS: HYDROmorphone 1 MG/ML 1 ML SYRINGE IVP PRN ×5 (00:03→13:49)
[2020-11-01 06:29] LABS: African American GFR (CKD) >90 (>60 ml/min/1.73 sqM); Anion Gap 8 mmol/L; Blood Urea Nitrogen 11 mg/dL (9-20); Calcium 8.8 mg/dL (8.4-10.2); Carbon Dioxide 22 mmol/L (22-30); Chloride 104 mmol/L (98-107); Glucose 76 mg/dL (74-99); Non-African American GFR(CKD) >90 (>60 ml/min/1.73 sqM); Potassium 3.8 mmol/L (3.5-5.1); Sodium 134 mmol/L (137-145)
[2020-11-01] MEDS: PANTOPRAZOLE 40 MG/10 ML VIAL IVP SCH (09:26)
[2020-11-01 09:57] LABS: Basophils # (A) 0 X 10*3/uL (0.00-0.10); Basophils % (A) 0 %; Eosinophils # (A) 0.05 X 10*3/uL (0.04-0.35); Eosinophils % (A) 1.3 %; HCT 29.4 % (39.6-50.0); HGB 9.1 g/dL (13.0-17.0); Lymphocytes # (A) 0.64 X 10*3/uL (0.90-5.00); Lymphocytes % (A) 16.5 %; MCH 25.9 pg (27.0-32.0); MCV 83.5 fL (80.0-97.0); Mean Platelet Volume 10.4 fL (9.5-12.2); Monocytes # (A) 0.59 X 10*3/uL (0.20-1.00); Monocytes % (A) 15.2 %; Neutrophils # (A) 2.58 X 10*3/uL (1.80-7.70); Neutrophils % (A) 66.5 %; Platelet Count 138 X 10*3/uL (140-440); RBC 3.52 X 10*6/uL (4.40-5.60); RDW 13.8 % (11.5-14.5); WBC 3.88 X 10*3/uL (4.50-10.00)
--- NOTE | 2020-11-01 11:56 | P.PN ---
<Korin Rasmussen - Last Filed: 11/01/20 11:45> Subjective Progress Note Date: 11/01/20 CHIEF COMPLAINT: Abdominal pain HISTORY OF PRESENT ILLNESS: Patient has been complaining of diffuse abdominal pain. He is also reporting that he has had melena type stools through his ostomy as well as some rectal bleeding over the weekend. Patient is scheduled for EGD today with GI service. Afebrile. WBC 3.88 hemoglobin 9.1 platelets 138 PHYSICAL EXAM: VITAL SIGNS: Reviewed. GENERAL: Well-developed in no acute distress. HEENT: No sclera icterus. Extraocular movements grossly intact. Moist buccal mucosa. Head is atraumatic, normocephalic. ABDOMEN: Soft. Nondistended. diffuse tenderness. Ostomy they just recently emptied. Stoma is beefy red. NEUROLOGIC: Alert and oriented. Cranial nerves II through XII grossly intact. ASSESSMENT: 1. Chronic abdominal pain likely related to previous surgeries and rectal c ancer 2. Melena stools through ostomy and rectal bleeding PLAN: -EGD scheduled by GI service today -Continue supportive care Physician Acid Concentrator note has been reviewed by physician. Signing provider agrees with the documented findings, assessment, and plan of care. Objective - Vital Signs Vital signs: Vital Signs Temp 97.8 F 11/01/20 07:00 Pulse 78 11/01/20 07:00 Resp 14 11/01/20 07:00 BP 161/77 11/01/20 07:00 Pulse Ox 99 11/01/20 07:00 Intake & Output 10/31/20 11/01/20 11/01/20 18:59 06:59 18:59 Intake Total 300 Output Total 10 15 Balance 290 -15 Intake: Oral 300 Output: Stool 10 15 Other: # Voids 1 # Bowel Movements 1 - Labs CBC & Chem 7: 11/01/20 05:29 11/01/20 05:29 Labs: Abnormal Lab Results - Last 24 Hours (Table) 11/01/20 11/01/20 Range/Units 05:29 05:29 WBC 3.88 L (4.50-10.00) X 10*3/uL RBC 3.52 L (4.40-5.60) X 10*6/uL Hgb 9.1 L (13.0-17.0) g/dL Hct 29.4 L (39.6-50.0) % MCH 25.9 L (27.0-32.0) pg MCHC 31.0 L (32.0-37.0) g/dL Plt Count 138 L (140-440) X 10*3/uL Lymphocytes # 0.64 L (0.90-5.00) X 10*3/uL Sodium 134 L (137-145) mmol/L Creatinine 0.61 L (0.66-1.25) mg/dL <rDu Lawson - Last Filed: 11/01/20 16:47> Subjective As above. Patient with persistent complaints of pain. No etiology identified. Recent ostomy and rectal bleeding noted. Upper endoscopy without evidence of active bleed. May require small bowel workup of the patient's bleeding if recurs. Patient still interested in ostomy reversal. She and I have had multiple discussions that I defer that decision to colorectal surgery. Apparently he does not want to go back to see the surgeon that placed the most recent ostomy. Previously he had seen Dr. Cast at [facility]. I agreed to contact him on the patient's behalf to see if he would be willing to do a virtual consult to discuss ostomy reversal. Apparently after discussing with Dr. Cast I learned that the patient had been discontinued from his practice the cause of ongoing narcotic use and refusal to seek out help for that reason. Patient apparently being discharged. We'll discuss further with the patient post discharge. Objective - Vital Signs Vital signs: Vital Signs Temp 98.4 F 11/01/20 13:33 Pulse 80 11/01/20 13:33 Resp 17 11/01/20 13:33 BP 139/70 11/01/20 13:33 Pulse Ox 99 11/01/20 13:33 Intake & Output 10/31/20 11/01/20 11/01/20 18:59 06:59 18:59 Intake Total 300 200 Output Total 10 15 Balance 290 -15 200 Intake: IV 200 Oral 300 Output: Stool 10 15 Other: # Voids 1 # Bowel Movements 1 - Labs CBC & Chem 7: 11/01/20 05:29 11/01/20 05:29 Labs: Abnormal Lab Results - Last 24 Hours (Table) 11/01/20 11/01/20 Range/Units 05:29 05:29 WBC 3.88 L (4.50-10.00) X 10*3/uL RBC 3.52 L (4.40-5.60) X 10*6/uL Hgb 9.1 L (13.0-17.0) g/dL Hct 29.4 L (39.6-50.0) % MCH 25.9 L (27.0-32.0) pg MCHC 31.0 L (32.0-37.0) g/dL Plt Count 138 L (140-440) X 10*3/uL Lymphocytes # 0.64 L (0.90-5.00) X 10*3/uL Sodium 134 L (137-145) mmol/L Creatinine 0.61 L (0.66-1.25) mg/dL
[2020-11-01] MEDS ORDERED: LIDOCAINE 1% INJ 10MG/ML (20 ML MDV) ONE (12:46)
[2020-11-01] MEDS ORDERED: PROPOFOL 10 MG/ML 20 ML VIAL IV ONE (12:46)
[2020-11-01] MEDS ORDERED: IV FLUID CONTINUATION 1,000 ML IV ONE ×2 (12:48)
[2020-11-01] MEDS ORDERED: SODIUM CHLORIDE 0.9% 500 ML 500 ML IV ONE (13:14)
--- NOTE | 2020-11-01 13:30 | P.PCN ---
Date of Procedure: 11/01/20 Description of Procedure: BRIEF HISTORY: 59-year-old male with a history of GERD, chronic abdominal pain, iron deficiency anemia and rectal cancer who presented to the hospital for abdominal pain. Patient has long-standing history of abdominal pain in the past and has been seen in the hospital on numerous occasions for such complaint. He reports diffuse pain across his abdomen describes as sharp and severe in nature. Previously he has a history of rectal cancer in 2017 for which she underwent lower anterior resection for which she developed a leak and had stent placement. The patient also underwent chemotherapy for his cancer. The patient developed an obstruction and subsequently had formation of a diverting ostomy. Previously he was seen for partial small bowel obstruction and 08/2020. He presented on current admission for abdominal pain as stated. Subsequently the patient has been noted to have some dark output from his ostomy and there is concern for possible GI bleed. Hemoglobin which was 11 on presentation currently 9.1 from 9.9 previously. He denies any history of peptic ulcer disease and denies NSAID use. It is unclear if he is had an EGD in the past. Computed tomography scan of the abdomen showed some jejunal prominence. PROCEDURE PERFORMED: Esophagogastroduodenoscopy with biopsy. PREOPERATIVE DIAGNOSIS: Melena, anemia. ESTIMATED BLOOD LOSS: Minimal. IV sedation per anesthesia. PROCEDURE: After informed consent was obtained, the patient was brought into the endoscopy unit. IV sedation was administered by Anesthesia under continuous monitoring. Initially the Olympus GIF-190 video endoscope was inserted into the mouth. Esophagus intubated without any difficulty. It was gradually advanced into the stomach and duodenum and carefully examined. The bulb and the second part of the duodenum appeared normal, except for some mild nodularity in the second portion of the duodenum suggestive of mild duodenitis with biopsies taken. The scope at this time was withdrawn to the stomach, adequately insufflated with air, and upon careful examination, mucosa of the antrum, body, cardia and the fundus appeared normal, except for some mild punctate erythema in the antrum and body suggestive of mild gastritis with biopsies of antrum and body taken. The scope was then withdrawn into the esophagus. The GE junction was located at 39 cm from the incisors. The esophagus appeared normal. There were no erosions or ulcerations seen and the patient tolerated the procedure well. IMPRESSION: 1. Mild gastritis . 2. Mild duodenitis. 3. Biopsies of the duodenum, antrum and body.. RECOMMENDATIONS: The findings of this examination were discussed with the patient and medical team. Okay to his diet and advance as tolerated. Continue to monitor hemoglobin and hematocrit and transfuse as needed. Continue medical management..
[2020-11-01 13:34] VITALS: BP 139/70; PULSE 80; RESP 17; TEMP 98.4
[2020-11-01] MEDS ORDERED: HYDROmorphone 1 MG/ML 1 ML SYRINGE IVP PRN (14:08)
[2020-11-01] MEDS ORDERED: FAMOTIDINE 20 MG TAB PO PRN (14:21)
[2020-11-01] MEDS ORDERED: HYDROcodone/APAP 10-325MG 1 EACH TAB PO PRN (14:21)
[2020-11-01] MEDS ORDERED: DOCUSATE 100 MG CAP PO PRN (14:21)
--- NOTE | 2020-11-01 16:32 | P.DS ---
Providers Date of admission: 10/30/20 14:35 Expected date of discharge: 11/01/20 Attending physician: Chandan Garnica MD Consults: 10/28/20 20:26 Consult Physician Routine Consulting Provider: Dru Lawson Consult Reason/Comments: ab pain Do you want consulting provider notified?: Yes 10/30/20 18:45 Consult Physician Stat Consulting Provider: Valdemar Jackson Consult Reason/Comments: GI Bleed Do you want consulting provider notified?: Yes Primary care physician: Freddy Burton Hospital Course: Final diagnosis Abdominal pain with possible GI bleed Gastroesophageal reflux disease Possible gastritis Status post EGD showing mild gastritis and mild duodenitis with biopsies obtained Right hip pain History of colon cancer DVT prophylaxis GI prophylaxis Discharge disposition Patient is being discharged in a stable condition with guarded prognosis to home. Patient will follow-up with Dr. Burton in the outpatient setting upon discharge. Patient also instructed to follow-up with GI in 2 weeks for biopsy results. Prescription provided for repeat labs in 1-2 days to monitor CBC. Total time taken is greater than 35 minutes. Hospital course Abdominal pain with computed tomography scan showing nonspecific jejunal loop prominence History of rectal cancer GI bleed 59-year-old male presenting to the emergency Department with complaints of abdominal discomfort. Patient has had decreased output from his ostomy over the past 2-3 days. Patient has had abdominal discomfort over the past day or 2. Patient is having nausea vomiting 3-4 times daily, usually with attempted oral intake. Patient has had similar symptoms approximately 3-4 times previously however is unclear why. No fevers. Workup in ED with blood work revealed a WBC of 7.5, hemoglobin 11.7; chemical profile revealed sodium of 140, potassium 4.1, BUN/creatinine of 21/0.7 and blood glucose of 122 CT of abdomen and pelvis was done which reveals nonspecific judgment no loop prominence; patient is admitted for evaluation by surgical service 10/30/2020 Patient is seen and evaluated in room at bedside; continues to complain of severe abdominal pain requiring IV narcotics complain of bloody stools in colostomy bag We will continue with supportive care; shouldn't has been made nothing by mouth; we will continue with IV fluids and consult GI for further recommendations 10/31/2020 Patient is seen sitting up in bed; continues to report of severe pain requesting pain medication be increased; continues to have bloody stools and colostomy Vital signs reveal blood pressure 167/79; remains afebrile Vital signs are reviewed and reveal slow downward trend of hemoglobin which is down to 9.1 this morning from 11.7 on admission Hyperkalemia resolved from potassium level of 6.0 yesterday down to 3.6 Patient is evaluated by GI and recommended to remain nothing by mouth with supportive care and close monitoring of H&H; patient is started on Protonix 40 mg twice a day; plan is possible EGD tomorrow to rule out GI bleed 11/01/2020 Patient is seen in follow-up this morning and has been nothing by mouth and is scheduled to undergo EGD. EGD shows mild gastritis with mild duodenitis and biopsies obtained. Patient okay to resume diet and instructed to follow-up with GI outpatient for biopsy results in 1-2 weeks. Patient will continue on Pepcid along with Protonix until follow-up. Prescription was provided for CBC in 1-2 days to monitor hemoglobin. Patient reports to previously vomiting blood and having blood noted in his stool in the ostomy and evaluated ostomy multiple times today and patient states he emptied the ostomy and no blood noted. Hemoglobin today is 9.1. Patient continues to request IV pain medication and became belligerent and upset with staff once resumed on oral medications. Patient instructed to follow-up with primary care provider upon discharge as well. Patient will be discharged home today. Guarded prognosis. Currently no reports of chest pain, shortness of breath, or palpitations. Patient is afebrile. No reports of nausea or vomiting and patient is tolerating diet. On exam vital signs are stable. Cardio S1, S2 are muffled. Respiratory system shows diminished breath sounds at the bases with no wheezing or rhonchi noted. Abdomen is soft and obese, and nontender. Nervous system shows no focal deficits. Please refer to medication reconciliation sheet for a list of medications. Patient Condition at Discharge: Stable Plan - Discharge Summary Discharge Rx Participant: No New Discharge Prescriptions: New Pantoprazole Sodium [Protonix] 40 mg PO DAILY #30 tablet. Continue Docusate [Colace] 100 mg PO DAILY PRN PRN Reason: Constipation HYDROcodone/APAP 10-325MG [[place] 10-325] 2 tab PO Q6H PRN #16 tab PRN Reason: Pain Famotidine [Pepcid] 20 mg PO BID PRN PRN Reason: Gi Upset Triamterene-Hctz 37.5-25Mg [Dyazide 37.5-25 Capsule] 1 cap PO DAILY Discharge Medication List Docusate [Colace] 100 mg PO DAILY PRN 12/14/19 [History] HYDROcodone/APAP 10-325MG [[place] 10-325] 2 tab PO Q6H PRN #16 tab 12/26/19 [Rx] Famotidine [Pepcid] 20 mg PO BID PRN 05/11/20 [History] Triamterene-Hctz 37.5-25Mg [Dyazide 37.5-25 Capsule] 1 cap PO DAILY 09/03/20 [History] Pantoprazole Sodium [Protonix] 40 mg PO DAILY #30 tablet. 11/01/20 [Rx] Follow up Appointment(s)/Referral(s): Freddy Burton MD [Primary Care Provider] - 1-2 days Valdemar Jackson MD [STAFF PHYSICIAN] - 2 Weeks Ambulatory/Diagnostic Orders: Complete Blood Count w/diff [LAB.AMB] Time Frame: 3 Days, Location: None Selected Activity/Diet/Wound Care/Special Instructions: Activity Limited until follow-up Continue current diet and slowly advance as tolerated Continue with Protonix daily along with Pepcid twice daily Follow-up with primary care provider upon discharge Follow-up with GI in 2 weeks for biopsy results Discharge Disposition: HOME SELF-CARE
== END 2020-11-01 15:01 | disposition home or self-care (01) | DRG 378 ==
LOC: EC 17:41 → 6NMEDSUR 20:25 → OBSVTOIN 10-30 14:35
PROVIDERS: ADMIT Internal Medicine; ATTEND Internal Medicine
PROC: 0DB78ZX Excision of Stomach, Pylorus, Via Natural or Artificial Opening Endoscopic, Diagnostic (ICD-10-PCS; principal; 2020-11-01 09:50)
PROC: 0DB98ZX Excision of Duodenum, Via Natural or Artificial Opening Endoscopic, Diagnostic (ICD-10-PCS; principal; 2020-11-01 09:50)
DX: K29.71 Gastritis, unspecified, with bleeding (principal); Z68.41 Body mass index [BMI] 40.0-44.9, adult; D50.9 Iron deficiency anemia, unspecified; K29.81 Duodenitis with bleeding; Z93.3 Colostomy status; E66.9 Obesity, unspecified; Z20.822 Contact with and (suspected) exposure to COVID-19; E87.5 Hyperkalemia; G89.29 Other chronic pain; K21.9 Gastro-esophageal reflux disease without esophagitis; G62.9 Polyneuropathy, unspecified; M54.5 Low back pain; M15.9 Polyosteoarthritis, unspecified; M25.551 Pain in right hip; Z79.899 Other long term (current) drug therapy; Z87.891 Personal history of nicotine dependence; Z86.2 Personal history of diseases of the blood and blood-forming organs and certain disorders involving the immune mechanism; Z85.048 Personal history of other malignant neoplasm of rectum, rectosigmoid junction, and anus; Z90.49 Acquired absence of other specified parts of digestive tract; Z87.19 Personal history of other diseases of the digestive system; Z87.39 Personal history of other diseases of the musculoskeletal system and connective tissue; Z92.21 Personal history of antineoplastic chemotherapy; Z92.3 Personal history of irradiation; Z90.89 Acquired absence of other organs; Z98.890 Other specified postprocedural states; Z88.6 Allergy status to analgesic agent; Z88.5 Allergy status to narcotic agent; Z80.0 Family history of malignant neoplasm of digestive organs; Z83.3 Family history of diabetes mellitus; Z82.49 Family history of ischemic heart disease and other diseases of the circulatory system
CPT/HCPCS: 36415; 43239; 73521; 74176; 80048; 80053; 82150; 83690; 84132; 85025; 85610; 85730; 87635; 88305; 96361; 96374; 96375; 96376; 99285

== ENCOUNTER 2020-11-10 01:57 | Observation (INO) | payer OTHER ==
[2020-11-10] MEDS ORDERED: SODIUM CHLORIDE 0.9% 1,000 ML IV STA (02:50)
[2020-11-10] MEDS ORDERED: HYDROmorphone 1 MG/ML 1 ML SYRINGE IVP STA (02:51)
--- NOTE | 2020-11-10 02:51 | ED ---
Abdominal Pain HPI - General Chief Complaint: Abdominal Pain Stated Complaint: Abd Pain Time Seen by Provider: 11/10/20 02:19 Source: patient, RN notes reviewed, old records reviewed Mode of arrival: wheelchair Limitations: no limitations - History of Present Illness Initial Comments: This is a 60-year-old male DF for evaluation patient Dese for evaluation regards to severe abdominal pain severe and persistent dull. Nausea vomiting. Patient also has significant anxiety. She does believe all habits or change. Patient is multiple ER visits consultations for similar issues. Patient states he just not making it at home with his pain is just increasing with persistent nausea and decreased appetite. MD Complaint: abdominal pain -: days(s) Location: diffuse, epigastric, suprapubic Radiation: epigastric, suprapubic Migration to: L flank, R flank Severity: moderate Severity scale (1-10): 6 Quality: cramping, aching, sharp Consistency: intermittent Improves With: nothing Worsens With: eating Context: recent surgery/procedure Associated Symptoms: nausea, vomiting, constipation Treatments Prior to Arrival: prescription analgesics - Related Data Home Medications Medication Instructions Recorded Confirmed Docusate [Colace] 100 mg PO DAILY PRN 12/14/19 11/12/20 Famotidine [Pepcid] 20 mg PO BID PRN 05/11/20 11/12/20 Triamterene-Hctz 37.5-25Mg 1 cap PO DAILY 09/03/20 11/12/20 [Dyazide 37.5-25 Capsule] Previous Rx's Medication Instructions Recorded HYDROcodone/APAP 10-325MG [[place] 2 tab PO Q6H PRN #16 tab 12/26/19 10-325] Pantoprazole Sodium [Protonix] 40 mg PO DAILY #30 tablet. 11/01/20 Allergies Allergy/AdvReac Type Severity Reaction Status Date / Time ketorolac [From Toradol] Allergy Nausea & Verified 11/12/20 21:56 Vomiting morphine Allergy itching, Verified 11/12/20 21:56 upset stomach Review of Systems ROS Statement: Those systems with pertinent positive or pertinent negative responses have been documented in the HPI. ROS Other: All systems not noted in ROS Statement are negative. Past Medical History Past Medical History: Cancer, GERD/Reflux, Osteoarthritis (OA) Additional Past Medical History / Comment(s): Pt admitted to [facility] on 12/01/19 with a fall/struck R side abdomin/abdominal pain/vomiting/decrease ostomy function/incisional abdominal hernia. Other hx: Rectal cancer 2017 with colectomy/ileostomy then reversal/chemo pills and radiation, partial colonic obstruction-pt sent to [facility] [place] and had diverting loop colostomy, chronic low back pain, arthritis in multiple joints, neuropathy bilateral feet/toes and R hand, iron deficiency anemia. History of Any Multi-Drug Resistant Organisms: None Reported Past Surgical History: Appendectomy, Bowel Resection, Orthopedic Surgery, Tonsillectomy Additional Past Surgical History / Comment(s): Colectomy/ileostomy with reversal, diverting loop colostomy, colonoscopies, L elbow bursa surgery, double hernia repair Past Anesthesia/Blood Transfusion Reactions: No Reported Reaction Past Psychological History: No Psychological Hx Reported Smoking Status: Never smoker Past Alcohol Use History: Rare Past Drug Use History: None Reported - Past Family History Mother Family Medical History: Cancer, Diabetes Mellitus Additional Family Medical History / Comment(s): from liver cancer Father Family Medical History: Myocardial Infarction (NH) Additional Family Medical History / Comment(s): Pt has not spoken to his father in years and does not know much of his medical hx. General Exam Limitations: no limitations General appearance: alert, in no apparent distress, anxious Head exam: Present: atraumatic, normocephalic, normal inspection Eye exam: Present: normal appearance, PERRL, EOMI. Absent: scleral icterus, conjunctival injection, periorbital swelling ENT exam: Present: normal exam, mucous membranes moist Neck exam: Present: normal inspection. Absent: tenderness, meningismus, lymphadenopathy Respiratory exam: Present: normal lung sounds bilaterally. Absent: respiratory distress, wheezes, rales, rhonchi, stridor Cardiovascular Exam: Present: normal rhythm, tachycardia, normal heart sounds. Absent: systolic murmur, diastolic murmur, rubs, gallop, clicks GI/Abdominal exam: Present: soft, normal bowel sounds. Absent: distended, tenderness, guarding, rebound, rigid Extremities exam: Present: normal inspection, full ROM, normal capillary refill. Absent: tenderness, pedal edema, joint swelling, calf tenderness Back exam: Present: normal inspection Neurological exam: Present: alert, oriented X3, CN II-XII intact Psychiatric exam: Present: normal affect, normal mood Skin exam: Present: warm, dry, intact, normal color. Absent: rash Course Vital Signs 11/10/20 11/10/20 11/10/20 02:00 03:30 05:37 Temperature 98.5 F Pulse Rate 120 H 100 93 Respiratory 24 18 Rate Blood Pressure 150/80 143/80 167/82 O2 Sat by Pulse 99 98 97 Oximetry 11/10/20 11/10/20 11/10/20 07:17 11:34 15:39 Temperature 98.6 F Pulse Rate 91 74 Respiratory 18 18 18 Rate Blood Pressure 168/98 143/77 O2 Sat by Pulse 99 98 Oximetry - Reevaluation(s) Reevaluation #1: Medical record is reviewed Patient symptoms improved here in the ER Patient family informed of results, questions have been answered Medical Decision Making - Medical Decision Making 60 male with intractable abdominal pain and rectal cancer history of ileus, will admit for pain control - Lab Data Result diagrams: 11/10/20 03:13 11/10/20 03:13 Lab Results 11/10/20 11/10/20 11/10/20 Range/Units 03:13 03:13 03:13 WBC 6.6 (3.8-10.6) k/uL RBC 4.11 L (4.30-5.90) m/uL Hgb 10.6 L (13.0-17.5) gm/dL Hct 32.8 L (39.0-53.0) % MCV 79.9 L (80.0-100.0) fL MCH 25.7 (25.0-35.0) pg MCHC 32.2 (31.0-37.0) g/dL RDW 14.3 (11.5-15.5) % Plt Count 370 (150-450) k/uL MPV 6.4 Neutrophils % 77 % Lymphocytes % 13 % Monocytes % 9 % Eosinophils % 0 % Basophils % 0 % Neutrophils # 5.0 (1.3-7.7) k/uL Lymphocytes # 0.8 L (1.0-4.8) k/uL Monocytes # 0.6 (0-1.0) k/uL Eosinophils # 0.0 (0-0.7) k/uL Basophils # 0.0 (0-0.2) k/uL Hypochromasia Slight Sodium 139 (137-145) mmol/L Potassium 3.8 (3.5-5.1) mmol/L Chloride 105 (98-107) mmol/L Carbon Dioxide 25 (22-30) mmol/L Anion Gap 9 mmol/L BUN 15 (9-20) mg/dL Creatinine 0.69 (0.66-1.25) mg/dL Est GFR (CKD-EPI)AfAm >90 (>60 ml/min/1.73 sqM) Est GFR (CKD-EPI)NonAf >90 (>60 ml/min/1.73 sqM) Glucose 124 H (74-99) mg/dL Calcium 9.9 (8.4-10.2) mg/dL Phosphorus 3.4 (2.5-4.5) mg/dL Magnesium 2.2 (1.6-2.3) mg/dL Total Bilirubin 0.5 (0.2-1.3) mg/dL AST 18 (17-59) U/L ALT 9 (4-49) U/L Alkaline Phosphatase 65 (38-126) U/L Lactate Dehydrogenase (313-618) U/L C-Reactive Protein (<10.0) mg/L Total Protein 7.2 (6.3-8.2) g/dL Albumin 4.0 (3.5-5.0) g/dL Amylase 42 (30-110) U/L Lipase 37 (23-300) U/L Blood Type A Positive Blood Type Recheck A Pos Bld Type Recheck Status No Antibody Screen NEGATIVE Spec Expiration Date 11/13/2020 - 231211/10/20 Range/Units 03:17 WBC (3.8-10.6) k/uL RBC (4.30-5.90) m/uL Hgb (13.0-17.5) gm/dL Hct (39.0-53.0) % MCV (80.0-100.0) fL MCH (25.0-35.0) pg MCHC (31.0-37.0) g/dL RDW (11.5-15.5) % Plt Count (150-450) k/uL MPV Neutrophils % % Lymphocytes % % Monocytes % % Eosinophils % % Basophils % % Neutrophils # (1.3-7.7) k/uL Lymphocytes # (1.0-4.8) k/uL Monocytes # (0-1.0) k/uL Eosinophils # (0-0.7) k/uL Basophils # (0-0.2) k/uL Hypochromasia Sodium (137-145) mmol/L Potassium (3.5-5.1) mmol/L Chloride (98-107) mmol/L Carbon Dioxide (22-30) mmol/L Anion Gap mmol/L BUN (9-20) mg/dL Creatinine (0.66-1.25) mg/dL Est GFR (CKD-EPI)AfAm (>60 ml/min/1.73 sqM) Est GFR (CKD-EPI)NonAf (>60 ml/min/1.73 sqM) Glucose (74-99) mg/dL Calcium (8.4-10.2) mg/dL Phosphorus (2.5-4.5) mg/dL Magnesium (1.6-2.3) mg/dL Total Bilirubin (0.2-1.3) mg/dL AST (17-59) U/L ALT (4-49) U/L Alkaline Phosphatase (38-126) U/L Lactate Dehydrogenase 361 (313-618) U/L C-Reactive Protein 27.7 H (<10.0) mg/L Total Protein (6.3-8.2) g/dL Albumin (3.5-5.0) g/dL Amylase (30-110) U/L Lipase (23-300) U/L Blood Type Blood Type Recheck Bld Type Recheck Status Antibody Screen Spec Expiration Date - Radiology Data Radiology results: report reviewed (X-ray does show persistent ileus type changes different or fluid levels), image reviewed Disposition Clinical Impression: Morbid obesity due to excess calories, Nausea & vomiting, Abdominal pain, History of rectal cancer, Intractable abdominal pain, Ileus Disposition: [facility] Is patient prescribed a controlled substance at d/c from ED?: No
[2020-11-10 03:37] LABS: Basophils % (A) 0 %; Eosinophils % (A) 0 %; HCT 32.8 % (39.0-53.0); HGB 10.6 gm/dL (13.0-17.5); Hypochromasia Slight; Lymphocytes # (A) 0.8 k/uL (1.0-4.8); Lymphocytes % (A) 13 %; MCH 25.7 pg (25.0-35.0); MCHC 32.2 g/dL (31.0-37.0); MCV 79.9 fL (80.0-100.0); Mean Platelet Volume 6.4; Monocytes # (A) 0.6 k/uL (0-1.0); Monocytes % (A) 9 %; Neutrophils % (A) 77 %; Platelet Count 370 k/uL (150-450); RBC 4.11 m/uL (4.30-5.90); RDW 14.3 % (11.5-15.5); WBC 6.6 k/uL (3.8-10.6)
--- NOTE | 2020-11-10 03:49 | XR ---
EXAM: XR Abdomen, 2 Views and XR Chest, 1 View CLINICAL HISTORY: ITS.REASON XR Reason: pain TECHNIQUE: Frontal view of the chest, frontal view of the abdomen/pelvis and upright or decubitus view of the abdomen. COMPARISON: 10/01/20 and 06/14/20. FINDINGS: Lungs: Patchy bilateral lung opacities. Pleural space: No significant pleural effusion or pneumothorax. Heart: Stable cardiomediastinal silhouette. Mediastinum: See above. Gastrointestinal tract: Several air-fluid levels, query ileus or enteritis. Curvilinear lucency at the right upper quadrant, only seen on one view, potentially within bowel but not definite. Rectal stents again noted. Bones/joints: Degenerative changes. IMPRESSION: 1. Patchy bilateral lung opacities. Correlate clinically regarding infection or edema. 2. Several air-fluid levels, query ileus or enteritis. 3. Curvilinear lucency at the right upper quadrant, potentially within bowel but not definite. CT can further evaluate if there is clinical concern.
[2020-11-10 03:51] LABS: ALT 9 U/L (4-49); AST 18 U/L (17-59); African American GFR (CKD) >90 (>60 ml/min/1.73 sqM); Alkaline Phosphatase 65 U/L (38-126); Amylase 42 U/L (30-110); Anion Gap 9 mmol/L; Blood Urea Nitrogen 15 mg/dL (9-20); Calcium 9.9 mg/dL (8.4-10.2); Carbon Dioxide 25 mmol/L (22-30); Chloride 105 mmol/L (98-107); Glucose 124 mg/dL (74-99); Lipase 37 U/L (23-300); Magnesium 2.2 mg/dL (1.6-2.3); Non-African American GFR(CKD) >90 (>60 ml/min/1.73 sqM); Phosphorus 3.4 mg/dL (2.5-4.5); Potassium 3.8 mmol/L (3.5-5.1); Sodium 139 mmol/L (137-145); Total Bilirubin 0.5 mg/dL (0.2-1.3); Total Protein 7.2 g/dL (6.3-8.2)
[2020-11-10] MEDS ORDERED: SODIUM CHLORIDE 0.9% 1,000 ML IV ONE (03:52)
[2020-11-10 04:39] LABS: C Reactive Protein 27.7 mg/L (<10.0)
[2020-11-10] MEDS ORDERED: ONDANSETRON 4 MG/2 ML VIAL IVP PRN (05:28)
[2020-11-10] MEDS ORDERED: ONDANSETRON 4 MG/2 ML VIAL IVP STA (05:28)
[2020-11-10] MEDS: HYDROmorphone 1 MG/ML 1 ML SYRINGE IVP PRN ×5 (05:32→21:03)
--- NOTE | 2020-11-10 14:15 | CONS ---
CONSULTATION DATE OF DICTATION: November 10, 2020. REASON FOR CONSULTATION: Severe abdominal pain. HISTORY OF PRESENT ILLNESS: The patient is a 60-year-old white male with multiple hospitalizations over the last several months with severe abdominal pain. He was recently discharged home about a week ago at which time he was admitted for the same reason. He describes the pain mostly located in the lower abdominal area and has noticed some nausea, vomiting. He has not had any bowel movements in the colostomy bag in the last 2 days. The patient has history of rectal cancer diagnosed in 2017 for which he underwent low anterior resection followed by a leak and subsequently underwent sigmoid stent placement. He subsequently underwent diverting colostomy in June of 2020 at [facility]. He follows with Dr. Lawson. He is complaining of some nausea but no emesis. The pain is mostly in the lower abdominal area. He denies any blood in the colostomy bag. He denies any fever, chills, or night sweats. During his last hospitalization, he had an upper endoscopy done by Dr. Jackson that showed some gastritis and duodenitis. PAST MEDICAL HISTORY: His past medical history is significant for rectal cancer diagnosed in 2017, status post low anterior resection, history of GERD, degenerative joint disease, chronic abdominal pain. PAST SURGICAL HISTORY: Appendectomy, low anterior resection in 2017, history of ileostomy followed by reversal now has a dilated loop colostomy done in June of 2020, double hernia repair. MEDICATIONS: Medications at home include Colace, [place], Pepcid, Dyazide. ALLERGIES: KETORALAC and MORPHINE. SOCIAL HISTORY: No smoking. No alcohol use. FAMILY HISTORY: Mother has diabetes mellitus and liver cancer. Father had coronary artery disease. REVIEW OF SYSTEMS: CARDIOPULMONARY: No chest pain or shortness of breath. GENITOURINARY: No dysuria or hematuria. MUSCULOSKELETAL: Unremarkable. SKIN: Unremarkable. ENDOCRINE: Unremarkable. PSYCHIATRIC: Unremarkable. ENT/VISION: Unremarkable. CONSTITUTIONAL: No recent weight loss. No fever, chills, night sweats. HEMATOLOGY: Unremarkable. PHYSICAL EXAMINATION: He appears comfortable. No apparent distress. Vital signs are stable. Blood pressure is 143/77, pulse rate 74, temperature 98. HEENT EXAMINATION: Unremarkable. Conjunctivae pink. Sclerae anicteric. Oral cavity no lesions. NECK: No JVD or lymph node enlargement. CHEST was clear to auscultation. HEART: Regular rate and rhythm. ABDOMEN: Was obese. There was descending colon colostomy noted. The colostomy bag had no stool. No bleeding noted. There was mild diffuse tenderness noted throughout the entire abdomen. EXTREMITIES: No pedal edema. NEURO: He is alert and oriented x3. No focal deficits. LABS: Labs from today: WBC 6.6, hemoglobin 10.6, platelets normal. Basic metabolic panel is within normal limits. BUN and creatinine are 15 and 0.6 respectively. Coronavirus PCR is negative. His last CT of the abdomen and pelvis done was during his last hospitalization on October 28, 2020 that showed nonspecific jejunal loop prominence, but otherwise unremarkable. IMPRESSION: Chronic lower abdominal pain for the last 2 years duration. CAT scan done during last hospitalization was unremarkable. Patient with history of rectal cancer diagnosed in 2017, status post low anterior resection followed by chemoradiation therapy and subsequently had reversal of diverting colostomy performed last year secondary to obstruction. Now continues to have lower abdominal discomfort chronically for last 2 years duration. Last CAT scan of the abdomen done on October 31 showed evidence of some jejunal prominence, but no other significant abnormality. Abdominal x-rays done today in the ER did show some air-fluid levels and suspicion for bowel obstruction versus enteritis was suggested by the radiologist. RECOMMENDATIONS: 1. Obtain surgical consultation. 2. Keep him n.p.o. for now. 3. Pain medications as needed for the abdominal pain. 4. Continue with current medications. 5. We will follow with you closely. Thank you for this consultation. MMODL / IJN: [id number] /
[2020-11-10] MEDS ORDERED: FAMOTIDINE 20 MG TAB PO PRN (19:02)
[2020-11-10] MEDS ORDERED: DOCUSATE 100 MG CAP PO PRN (19:02)
--- NOTE | 2020-11-10 19:35 | P.HPIM ---
History of Present Illness H&P Date: 11/10/20 Chief Complaint: Lower abdominal pain History of presenting complaint: This is a 60-year-old patient who follows with Dr. Burton. Chronic stable medical conditions include GERD, hypertension, osteoarthritis, gastritis duodenitis from recent EGD, arthritis in multiple joints, peripheral neuropathy, iron deficiency anemia. Patient has a known history of rectal cancer. Underwent low anterior resection, developed a leak. Had a stent. Placed at the leaking site. Which eventually converted to the wall of the rectum partially. This led to further obstruction. Patient landed up having a diverging ostomy. Ostomy within reversed recently at [facility] in June 2020. In and a loop colostomy again for recurrent obstruction at the stent site. Patient was here 2 weeks ago. Underwent EGD by Dr. Emerson. Found to have mild gastritis and duodenitis. Had a computed tomography scan of the abdomen 2 weeks ago underwent nonspecific jejunal loop prominence. Patient now presents with lower pelvic abdominal pain for about 3 days. Some nausea vomiting. No f ever no chills. Last bowel movement was about 4 days ago. Acute abdominal series was nonspecific. Review of systems: GEN.: Tired EYES: None HEENT: None NECK: None RESPIRATORY: None CARDIOVASCULAR: None GASTROINTESTINAL: As above GENITOURINARY: None MUSCULOSKELETAL: [Joint pains LYMPHATICS: None HEMATOLOGICAL: None PSYCHIATRY: Anxious NEUROLOGICAL: None Past medical history to include: Rectal cancer, GERD, hypertension, obstructive arthritis, mild gastritis and duodenitis, rectal cancer in 2016 with colectomy ileostomy and reversal 2 more pills, radiation, partial colonic obstruction secondary to Arabella had a diverticular colostomy, peripheral neuropathy, iron deficiency anemia Social history: Patient started smoking as a teenager and quit in 1998. Alcohol rarely. Lives alone in the apartment. Uses a cane a occasionally Physical examination: VITAL SIGNS: 98.6, 91, 18, 143 with 77, 98% room air GENERAL: For BMI 41.3, laying in bed, awake. EYES: Pupils equal. Conjunctiva normal. HEENT: External appearance of nose and ears normal, oral cavity grossly normal. NECK: JVD not raised; masses not palpable. HEART: First and second heart sounds are normal; no edema. LUNGS: Respiratory rate normal; clear to auscultation. ABDOMEN: Soft, mild suprapubic tenderness, no guarding rigidity, liver spleen not palpable, no masses palpable. Surgical scars, colostomy on the left side Musculoskeletal: Evidence of OA PSYCH: Alert and oriented x3; mood and affect anxiousl. NEUROLOGICAL: Cranial nerves grossly intact; no facial asymmetry, power and sensation grossly intact. LYMPHATICS: No lymph nodes palpable in the axilla and neck INVESTIGATIONS, reviewed in the clinical context: WBC 6.6 globin 10.6 platelets 370 potassium 3.8 creatinine 0.69 Coronavirus [PCR]-not detected Acute abdominal series was reviewed by me: Air-fluid levels Assessment and plan: -This is a patient extensive surgical history. Now presents with 4 days of no bowel movement lower abdominal pain. Some air-fluid level. Questionable ileus -GERD, continue Protonix -Mild gastritis mild duodenitis per recent EGD, on Protonix -Essential hypertension, on diuretics -Primary osteoarthritis, use Tylenol when necessary -Peripheral neuropathy, follow clinically -Diverging loop colostomy Care was discussed with the patient. Consultation made to GI and surgery. Patient be put on ice chips and oral medications. DVT prophylaxis Past Medical History Past Medical History: Cancer, GERD/Reflux, Osteoarthritis (OA) Additional Past Medical History / Comment(s): Pt admitted to [facility] on 12/01/19 with a fall/struck R side abdomin/abdominal pain/vomiting/decrease ostomy function/incisional abdominal hernia. Other hx: Rectal cancer 2017 with colectomy/ileostomy then reversal/chemo pills and radiation, partial colonic obstruction-pt sent to [place] and had diverting loop colostomy, chronic low back pain, arthritis in multiple joints, neuropathy bilateral feet/toes and R hand, iron deficiency anemia. History of Any Multi-Drug Resistant Organisms: None Reported Past Surgical History: Appendectomy, Bowel Resection, Orthopedic Surgery, Tonsillectomy Additional Past Surgical History / Comment(s): Colectomy/ileostomy with reversal, diverting loop colostomy, colonoscopies, L elbow bursa surgery, double hernia repair Past Anesthesia/Blood Transfusion Reactions: No Reported Reaction Past Psychological History: No Psychological Hx Reported Smoking Status: Never smoker Past Alcohol Use History: Rare Past Drug Use History: None Reported - Past Family History Mother Family Medical History: Cancer, Diabetes Mellitus Additional Family Medical History / Comment(s): from liver cancer Father Family Medical History: Myocardial Infarction ([place]) Additional Family Medical History / Comment(s): Pt has not spoken to his father in years and does not know much of his medical hx. Medications and Allergies Home Medications Medication Instructions Recorded Confirmed Type Docusate [Colace] 100 mg PO DAILY PRN 12/14/19 11/10/20 History HYDROcodone/APAP 10-325MG [[place] 2 tab PO Q6H PRN #16 tab 12/26/19 11/10/20 Rx 10-325] Famotidine [Pepcid] 20 mg PO BID PRN 05/11/20 11/10/20 History Triamterene-Hctz 37.5-25Mg 1 cap PO DAILY 09/03/20 11/10/20 History [Dyazide 37.5-25 Capsule] Pantoprazole Sodium [Protonix] 40 mg PO DAILY #30 tablet. 11/01/20 11/10/20 Rx Allergies Allergy/AdvReac Type Severity Reaction Status Date / Time ketorolac [From Toradol] Allergy Nausea & Verified 11/10/20 17:28 Vomiting morphine Allergy itching, Verified 11/10/20 17:28 upset stomach Physical Exam Vitals: Vital Signs Temp Pulse Resp BP Pulse Ox 11/10/20 07:17 98.6 F 91 18 168/98 99 11/10/20 05:37 93 18 167/82 97 11/10/20 03:30 100 143/80 98 11/10/20 02:00 98.5 F 120 H 24 150/80 99 Intake and Output 11/09/20 11/10/20 11/10/20 22:59 06:59 14:59 Other: Weight 127.006 kg Results CBC & Chem 7: 11/10/20 03:13 11/10/20 03:13 Labs: Abnormal Lab Results - Last 24 Hours (Table) 11/10/20 11/10/20 11/10/20 Range/Units 03:13 03:13 03:17 RBC 4.11 L (4.30-5.90) m/uL Hgb 10.6 L (13.0-17.5) gm/dL Hct 32.8 L (39.0-53.0) % MCV 79.9 L (80.0-100.0) fL Lymphocytes # 0.8 L (1.0-4.8) k/uL Glucose 124 H (74-99) mg/dL C-Reactive Protein 27.7 H (<10.0) mg/L
[2020-11-10] MEDS: SODIUM CHLORIDE 0.9% 1,000 ML IV SCH (19:51)
[2020-11-11] MEDS: HYDROmorphone 1 MG/ML 1 ML SYRINGE IVP PRN ×4 (00:31→11:58)
[2020-11-11] MEDS: SODIUM CHLORIDE 0.9% 1,000 ML IV SCH (04:03)
[2020-11-11 08:25] VITALS: RESP 18
[2020-11-11] MEDS ORDERED: TRIAMTERENE-HCTZ 37.5-25MG 1 EACH CAP PO SCH (09:00)
[2020-11-11] MEDS ORDERED: PANTOPRAZOLE 40 MG/10 ML VIAL IVP SCH (09:00)
--- NOTE | 2020-11-11 09:38 | P.PN ---
Subjective Progress Note Date: 11/11/20 Principal diagnosis: Abdominal pain Patient is a 60-year-old male who came into the emergency room with complaints of abdominal pain that is diffuse. He recently underwent an ostomy formation at [facility]. He's had multiple abdominal surgeries. He has chronic abdominal pain. He states he has not had a bowel movement in 4 days. He has small amounts of liquid stool in his ostomy bag. He states his abdominal pain is diffuse, IV pain medication helps that. He denies any vomiting, he states he does have some nausea. Objective - Vital Signs Vital signs: Vital Signs Temp 98.3 F 11/11/20 07:27 Pulse 69 11/11/20 07:27 Resp 18 11/11/20 07:27 BP 158/89 11/11/20 07:27 Pulse Ox 97 11/11/20 07:27 Intake & Output 11/10/20 11/11/20 11/11/20 18:59 06:59 18:59 Weight 127.006 kg Other: # Voids 2 2 # Bowel Movements 1 - Exam General appearance: The patient is alert, oriented, appears in no acute distress. HET: Head is normocephalic and atraumatic. Conjunctiva pink. Sclera anicteric. Neck: Supple without lymphadenopathy. Abdomen: Soft, diffuse tenderness, ostomy with small amount of liquid brown stool, nondistended with bowel sounds. No guarding or rigidity. Extremities: Normal skin color and turgor. No pedal edema Skin: No rashes, no jaundice Neurological: No focal deficits. Alert and oriented 3. - Labs CBC & Chem 7: 11/10/20 03:13 11/10/20 03:13 Assessment and Plan (1) Abdominal pain Current Visit: Yes Status: Acute Code(s): R10.9 - UNSPECIFIED ABDOMINAL PAIN SNOMED Code(s): 34346502 (2) History of rectal cancer Current Visit: Yes Status: Acute Code(s): Z85.048 - PRSNL HX OF MALIG NEOPLM OF RECTUM, RECTOSIG JUNCT, AND ANUS SNOMED Code(s): 503887146 (3) Ileus Current Visit: Yes Status: Acute Code(s): K56.7 - ILEUS, UNSPECIFIED SNOMED Code(s): 891472797 (4) Morbid obesity due to excess calories Current Visit: Yes Status: Acute Code(s): E66.01 - MORBID (SEVERE) OBESITY DUE TO EXCESS CALORIES SNOMED Code(s): 973028208 Plan: 1. Supportive care 2. Diet per recommendations from surgical services 3. No plans for any endoscopic evaluation at this time 4. Gen. surgery on consult await their recommendations 5. Antiemetics as needed Thank you for this consultation, we will continue to follow Dr. Karissa Johnson I agree with the dictator's note, documented as a scribe by Carmen Vora.
[2020-11-11 10:26] VITALS: BP 151/73; PULSE 70; TEMP 96.3
[2020-11-11 11:27] VITALS: BMI 41.3
--- NOTE | 2020-11-11 15:53 | P.GSCN ---
History of Present Illness Consult date: 11/11/20 Reason for Consult: Abdominal pain History of present illness: 60-year-old male well known to our service. Patient with history of previous re ctal cancer. Developed anastomotic stricture requiring stent placement. Patient had complication of his stent eroding through the rectal wall requiring diverting loop colostomy. Patient had a second stent placed at [facility] with ostomy reversal and subsequent to that developed additional problems requiring ostomy once again. Patient is due for screening colonoscopy given his personal history of rectal cancer however patient keeps having recurrent admissions for pain and nausea. Now complaining of some blood at the ostomy site and also rectally. Patient with history of narcotic abuse in the past. He was discharged from his colorectal surgeons practice at [place] because of noncompliance. Patient describes the abdominal pain as being diffuse in nature. Apparently he told Dr. Johnson that he has not had any stool for the last 2 days although told me today that he emptied at this morning. He described bleeding to myself but not to GI. He did have a recent EGD performed by GI. I discussed with the patient last week by phone after his discharge that we would facilitate a referral to [facility] colorectal surgery team. Patient was going to try to obtain a means of transportation and call me back. Review of Systems The patient denies any acute changes in vision or hearing, no dysphagia or odynophagia, no chest pain or shortness of breath, no dysuria or hematuria, no headache, no runny nose,, no unexplained weight loss Past Medical History Past Medical History: Cancer, GERD/Reflux, Osteoarthritis (OA) Additional Past Medical History / Comment(s): Pt admitted to [facility] on 12/01/19 with a fall/struck R side abdomin/abdominal pain/vomiting/decrease ostomy function/incisional abdominal hernia. Other hx: Rectal cancer 2017 with colectomy/ileostomy then reversal/chemo pills and radiation, partial colonic obstruction-pt sent to [place] and had diverting loop colostomy, chronic low back pain, arthritis in multiple joints, neuropathy bilateral feet/toes and R taylor nd, iron deficiency anemia. History of Any Multi-Drug Resistant Organisms: None Reported Past Surgical History: Appendectomy, Bowel Resection, Orthopedic Surgery, Tonsillectomy Additional Past Surgical History / Comment(s): Colectomy/ileostomy with reversal, diverting loop colostomy, colonoscopies, L elbow bursa surgery, double hernia repair Past Anesthesia/Blood Transfusion Reactions: No Reported Reaction Past Psychological History: No Psychological Hx Reported Smoking Status: Never smoker Past Alcohol Use History: Rare Past Drug Use History: None Reported - Past Family History Mother Family Medical History: Cancer, Diabetes Mellitus Additional Family Medical History / Comment(s): from liver cancer Father Family Medical History: Myocardial Infarction ([place]) Additional Family Medical History / Comment(s): Pt has not spoken to his father in years and does not know much of his medical hx. Medications and Allergies Home Medications Medication Instructions Recorded Confirmed Type Docusate [Colace] 100 mg PO DAILY PRN 12/14/19 11/10/20 History HYDROcodone/APAP 10-325MG [[place] 2 tab PO Q6H PRN #16 tab 12/26/19 11/10/20 Rx 10-325] Famotidine [Pepcid] 20 mg PO BID PRN 05/11/20 11/10/20 History Triamterene-Hctz 37.5-25Mg 1 cap PO DAILY 09/03/20 11/10/20 History [Dyazide 37.5-25 Capsule] Pantoprazole Sodium [Protonix] 40 mg PO DAILY #30 tablet. 11/01/20 11/10/20 Rx Allergies Allergy/AdvReac Type Severity Reaction Status Date / Time ketorolac [From Toradol] Allergy Nausea & Verified 11/10/20 17:28 Vomiting morphine Allergy itching, Verified 11/10/20 17:28 upset stomach Surgical - Exam Vital Signs Temp Pulse Resp BP Pulse Ox 98.5 F 120 H 24 150/80 99 11/10/20 02:00 11/10/20 02:00 11/10/20 02:00 11/10/20 02:00 11/10/20 02:00 Physical exam: General: Well-developed, well-nourished HEENT: Normocephalic, sclerae nonicteric Abdomen: Mild tenderness diffusely, ostomy with green stool left midabdomen, previous scars noted, nondistended Extremities: No edema Neuro: Alert and oriented Results - Labs 11/10/20 03:13 11/10/20 03:13 Assessment and Plan (1) Abdominal pain Narrative/Plan: Patient with recurrent admissions for pain and now occasional rectal bleeding and ostomy bleeding. Patient insistent that ostomy be reversed. He and I have discussed numerous times that that decision and management needs to be made by colorectal surgery. We will facilitate referral to [facility] if the patient is interested in doing so. Recommend resumption of diet. Will follow. Current Visit: Yes Status: Acute Code(s): R10.9 - UNSPECIFIED ABDOMINAL PAIN SNOMED Code(s): 11726354
--- NOTE | 2020-11-12 17:28 | P.DS ---
Providers Date of admission: 11/10/20 03:52 Expected date of discharge: 11/11/20 Attending physician: Nav Sandoval Consults: 11/10/20 03:52 Consult Physician Routine Consulting Provider: Dru Lawson Consult Reason/Comments: known Do you want consulting provider notified?: Yes Consult Physician Routine Consulting Provider: Valdemar Jackson Reason/Comments: pain Do you want consulting provider notified?: Yes Primary care physician: [facility] Course: Chief Complaint: Lower abdominal pain History of presenting complaint: This is a 60-year-old patient who follows with Dr. Burton. Chronic stable medical conditions include GERD, hypertension, osteoarthritis, gastritis duodenitis from recent EGD, arthritis in multiple joints, peripheral neuropathy, iron deficiency anemia. Patient has a known history of rectal cancer. Underwent low anterior resection, developed a leak. Had a stent. Placed at the leaking site. Which eventually converted to the wall of the rectum partially. This led to further obstruction. Patient landed up having a diverging ostomy. Ostomy within reversed recently at [facility] in June 2020. In and a loop colostomy again for recurrent obstruction at the stent site. Patient was here 2 weeks ago. Underwent EGD by Dr. Emerson. Found to have mild gastritis and duodenitis. Had a computed tomography scan of the abdomen 2 weeks ago underwent nonspecific jejunal loop prominence. Patient now presents with lower pelvic abdominal pain for about 3 days. Some nausea vomiting. No fever no chills. Last bowel movement was about 4 days ago. Acute abdominal series was nonspecific. Patient was seen by GI Dr. Karissa Johnson. Also seen with Dr. Coyle from general surgery. No further intervention for them. This was discussed with the patient. Cleared by both services for discharge. Patient was to follow-up with his original surgeon. Consultation: Dr. Coyle from general surgery Karissa Johnson from GI Past medical history to include: Rectal cancer, GERD, hypertension, obstructive arthritis, mild gastritis and duodenitis, rectal cancer in 2017 with colectomy ileostomy and reversal 2 more pills, radiation, partial colonic obstruction secondary to Arabella had a diverticular colostomy, peripheral neuropathy, iron deficiency anemia Social history: Patient started smoking as a teenager and quit in 1998. Alcohol rarely. Lives alone in the apartment. Uses a cane a occasionally Physical examination: VITAL SIGNS: 96.3, 70, 18, 151 with 73, 97% room air GENERAL: BMI 41.3, laying in bed, awake. EYES: Pupils equal. Conjunctiva normal. NECK: JVD not raised; masses not palpable. HEART: First and second heart sounds are normal; no edema. LUNGS: Respiratory rate normal; clear to auscultation. ABDOMEN: Soft, mild suprapubic tenderness, no guarding rigidity, liver spleen not palpable, no masses palpable. Surgical scars, colostomy on the left side Musculoskeletal: Evidence of OA PSYCH: Alert and oriented x3; mood and affect anxiousl. INVESTIGATIONS, reviewed in the clinical context: WBC 6.6 globin 10.6 platelets 370 potassium 3.8 creatinine 0.69 Coronavirus [PCR]-not detected Acute abdominal series was reviewed by me: Air-fluid levels Assessment and plan: - Now presents with 4 days of no bowel movement lower abdominal pain. Some air- fluid level. Questionable ileus. Feeling better. Cleared for discharge -GERD, continue Protonix -Mild gastritis mild duodenitis per recent EGD, on Protonix -Essential hypertension, on diuretics -Primary osteoarthritis, use Tylenol when necessary -Peripheral neuropathy, follow clinically -Divergint loop colostomy Disposition: Home Plan - Discharge Summary Discharge Rx Participant: No New Discharge Prescriptions: Continue Docusate [Colace] 100 mg PO DAILY PRN PRN Reason: Constipation HYDROcodone/APAP 10-325MG [[place] 10-325] 2 tab PO Q6H PRN #16 tab PRN Reason: Pain Famotidine [Pepcid] 20 mg PO BID PRN PRN Reason: Gi Upset Triamterene-Hctz 37.5-25Mg [Dyazide 37.5-25 Capsule] 1 cap PO DAILY Pantoprazole Sodium [Protonix] 40 mg PO DAILY #30 tablet.dr Discharge Medication List Docusate [Colace] 100 mg PO DAILY PRN 12/14/19 [History] HYDROcodone/APAP 10-325MG [[place] 10-325] 2 tab PO Q6H PRN #16 tab 12/26/19 [Rx] Famotidine [Pepcid] 20 mg PO BID PRN 05/11/20 [History] Triamterene-Hctz 37.5-25Mg [Dyazide 37.5-25 Capsule] 1 cap PO DAILY 09/03/20 [History] Pantoprazole Sodium [Protonix] 40 mg PO DAILY #30 tablet. 11/01/20 [Rx] Follow up Appointment(s)/Referral(s): Dru Lawson MD [Medical Doctor] - 11/18/20 8:30 am Freddy Burton MD [Primary Care Provider] - 11/26/20 11:00 am Patient Instructions/Handouts: Abdominal Pain (ED) Activity/Diet/Wound Care/Special Instructions: Home Care: [place] [facility]: cleared by GI and surgery Discharge Disposition: HOME WITH HOME HEALTH SERVICES
== END 2020-11-11 16:27 | disposition home health service (06) ==
LOC: EC 01:57 → 4SSUR 03:52 → INTOOBSV 03:52 → 4SSUR 16:37 → UNDODISIN 11-11 16:27
PROVIDERS: ADMIT Hospitalist; ATTEND Hospitalist
DX: R10.30 Lower abdominal pain, unspecified (principal); K62.5 Hemorrhage of anus and rectum; K21.9 Gastro-esophageal reflux disease without esophagitis; I10 Essential (primary) hypertension; M19.90 Unspecified osteoarthritis, unspecified site; D50.9 Iron deficiency anemia, unspecified; G62.9 Polyneuropathy, unspecified; K29.70 Gastritis, unspecified, without bleeding; K29.80 Duodenitis without bleeding; G89.29 Other chronic pain; M54.5 Low back pain; Z20.822 Contact with and (suspected) exposure to COVID-19; M19.91 Primary osteoarthritis, unspecified site; F41.9 Anxiety disorder, unspecified; E66.01 Morbid (severe) obesity due to excess calories; Z68.41 Body mass index [BMI] 40.0-44.9, adult; Z85.048 Personal history of other malignant neoplasm of rectum, rectosigmoid junction, and anus; Z87.891 Personal history of nicotine dependence; Z92.21 Personal history of antineoplastic chemotherapy; Z92.3 Personal history of irradiation; Z90.89 Acquired absence of other organs; Z90.49 Acquired absence of other specified parts of digestive tract; Z82.49 Family history of ischemic heart disease and other diseases of the circulatory system; Z80.0 Family history of malignant neoplasm of digestive organs; Z83.3 Family history of diabetes mellitus; Z79.899 Other long term (current) drug therapy; Z79.891 Long term (current) use of opiate analgesic; Z88.5 Allergy status to narcotic agent; Z88.8 Allergy status to other drugs, medicaments and biological substances; R11.2 Nausea with vomiting, unspecified; Z93.3 Colostomy status
CPT/HCPCS: 96376 ×3; 96361 ×3; 96375 ×2; 96374; 99285; 36415; 86900; 86901; 80053; 82150; 83615; 83690; 83735; 84100; 85025; 86850; 86140; 87635; 74022; G0378 ×2; J2405; J1170 ×2; C9113

== ENCOUNTER 2020-11-12 19:25 | Observation (INO) | payer OTHER ==
[2020-11-12] MEDS ORDERED: SODIUM CHLORIDE 0.9% 1,000 ML IV STA ×2 (20:23→21:50)
[2020-11-12] MEDS ORDERED: ONDANSETRON 4 MG/2 ML VIAL IVP STA (20:23)
[2020-11-12] MEDS ORDERED: PANTOPRAZOLE 40 MG/10 ML VIAL IVP STA (20:23)
[2020-11-12] MEDS ORDERED: HYDROmorphone 1 MG/ML 1 ML SYRINGE IVP STA ×2 (21:03→22:33)
[2020-11-12 21:17] LABS: Appearance,Urine Clear (Clear); Bilirubin,Urine 1+ (Negative); Blood,Urine Negative (Negative); Color,Urine Yellow; Glucose,Urine (UA) Negative (Negative); Hyaline Casts,Urine 11 /lpf (0-2); Ketones,Urine 4+ (Negative); Leukocyte Esterase,Urine Negative (Negative); Mucus,Urine Many /hpf; Nitrite,Urine Negative (Negative); PH, Urine 5.5 (5.0-8.0); Protein,Urine 1+ (Negative); RBC,Urine 1 /hpf (0-5); Specific Gravity,Urine 1.027 (1.001-1.035); Squamous Epithelial Cell,Urine 1 /hpf (0-4); WBC,Urine 4 /hpf (0-5)
[2020-11-12 21:17] LABS: Basophils % (A) 0 %; Eosinophils % (A) 0 %; HCT 35.4 % (39.0-53.0); HGB 11.1 gm/dL (13.0-17.5); Hypochromasia Slight; Lymphocytes # (A) 0.6 k/uL (1.0-4.8); Lymphocytes % (A) 8 %; MCH 24.9 pg (25.0-35.0); MCHC 31.5 g/dL (31.0-37.0); MCV 79.1 fL (80.0-100.0); Mean Platelet Volume 6.2; Monocytes # (A) 0.5 k/uL (0-1.0); Monocytes % (A) 6 %; Neutrophils % (A) 85 %; Platelet Count 347 k/uL (150-450); RBC 4.47 m/uL (4.30-5.90); RDW 14.7 % (11.5-15.5); WBC 8.2 k/uL (3.8-10.6)
--- NOTE | 2020-11-12 21:18 | ED ---
General Adult HPI - General Chief complaint: Nausea/Vomiting/Diarrhea Stated complaint: Abd/Groin Pain, Dc'd yest Time Seen by Provider: 11/12/20 20:15 Source: patient Mode of arrival: wheelchair Limitations: no limitations - History of Present Illness Initial comments: 60-year-old male with history of rectal cancer presents to the emergency department with a chief complaint abdominal pain. Patient reports being discharged 2 days ago but his symptoms have not improved. States she has not been able to take any oral fluids or liquids due to nausea or vomiting. States she has not been able to eat approximately one week. Patient reports IV Zofran typically works for him, however the sublingual has limited effects. States he typically takes narcotic home but he has not been able to take the medication. He has a colostomy that has had decreased output but he states this is secondary to decreased intake. He also reports continuous lower abdominal pain. He denies any chest pain or shortness of breath. - Related Data Home Medications Medication Instructions Recorded Confirmed Docusate [Colace] 100 mg PO DAILY PRN 12/14/19 11/12/20 Famotidine [Pepcid] 20 mg PO BID PRN 05/11/20 11/12/20 Triamterene-Hctz 37.5-25Mg 1 cap PO DAILY 09/03/20 11/12/20 [Dyazide 37.5-25 Capsule] Previous Rx's Medication Instructions Recorded HYDROcodone/APAP 10-325MG [[place] 2 tab PO Q6H PRN #16 tab 12/26/19 10-325] Pantoprazole Sodium [Protonix] 40 mg PO DAILY #30 tablet. 11/01/20 Allergies Allergy/AdvReac Type Severity Reaction Status Date / Time ketorolac [From Toradol] Allergy Nausea & Verified 11/12/20 21:56 Vomiting morphine Allergy itching, Verified 11/12/20 21:56 upset stomach Review of Systems ROS Statement: Those systems with pertinent positive or pertinent negative responses have been documented in the HPI. ROS Other: All systems not noted in ROS Statement are negative. Past Medical History Past Medical History: Cancer, GERD/Reflux, Osteoarthritis (OA) Additional Past Medical History / Comment(s): Pt admitted to [facility] on 12/01/19 with a fall/struck R side abdomin/abdominal pain/vomiting/decrease ostomy function/incisional abdominal hernia. Other hx: Rectal cancer 2017 with colectomy/ileostomy then reversal/chemo pills and radiation, partial colonic obstruction-pt sent to [place] and had diverting loop colostomy, chronic low back pain, arthritis in multiple joints, neuropathy bilateral feet/toes and R hand, iron deficiency anemia. History of Any Multi-Drug Resistant Organisms: None Reported Past Surgical History: Appendectomy, Bowel Resection, Orthopedic Surgery, Tonsillectomy Additional Past Surgical History / Comment(s): Colectomy/ileostomy with reversal, diverting loop colostomy, colonoscopies, L elbow bursa surgery, double hernia repair Past Anesthesia/Blood Transfusion Reactions: No Reported Reaction Past Psychological History: No Psychological Hx Reported Smoking Status: Never smoker Past Alcohol Use History: Rare Past Drug Use History: None Reported - Past Family History Mother Family Medical History: Cancer, Diabetes Mellitus Additional Family Medical History / Comment(s): from liver cancer Father Family Medical History: Myocardial Infarction ([place]) Additional Family Medical History / Comment(s): Pt has not spoken to his father in years and does not know much of his medical hx. General Exam Limitations: no limitations General appearance: alert, in no apparent distress Head exam: Present: atraumatic, normocephalic, normal inspection Eye exam: Present: normal appearance, PERRL, EOMI Pupils: Present: normal accommodation ENT exam: Present: normal exam, normal oropharynx, mucous membranes moist Neck exam: Present: normal inspection, full ROM. Absent: tenderness Respiratory exam: Present: normal lung sounds bilaterally. Absent: respiratory distress Cardiovascular Exam: Present: regular rate, normal rhythm, normal heart sounds GI/Abdominal exam: Present: soft, tenderness (Lower abdominal tenderness. Multiple scars from surgeries. Colostomy bag appears to be draining well.). Absent: distended, guarding, rebound, rigid Extremities exam: Present: normal inspection, full ROM, normal capillary refill. Absent: tenderness Back exam: Present: normal inspection, full ROM. Absent: tenderness Neurological exam: Present: alert, oriented X3, normal gait Psychiatric exam: Present: normal affect, normal mood Skin exam: Present: warm, dry, intact, normal color Course Vital Signs 11/12/20 11/12/20 11/12/20 19:55 20:55 21:55 Temperature 99.4 F Pulse Rate 115 H 92 98 Respiratory 20 18 18 Rate Blood Pressure 137/81 136/74 138/72 O2 Sat by Pulse 98 98 97 Oximetry Medical Decision Making - Medical Decision Making 60-year-old male with history of rectal cancer presents to emergency Department with a chief complaint abdominal pain. On physical examination, lower abdominal pain. Colostomy bag appears to be functioning well. He did have some stool production while I was evaluating him. I reviewed his medical records the patient has been admitted here multiple times and he has been seen multiple times for this intractable abdominal pain. Patient was given 2 mg of Dilaudid with no significant impairment his symptoms. However, I was able to get his nausea under control. He does have plus for ketones and was given 2 L of IV bolus fluids. He said minimal oral intake for the past several days. Patient will be admitted for further medical management. Case discussed with Admitting is Dr Sandoval - Lab Data Result diagrams: 11/12/20 21:02 11/12/20 21:02 Lab Results 11/12/20 11/12/20 11/12/20 Range/Units 20:52 21:02 21:02 WBC 8.2 (3.8-10.6) k/uL RBC 4.47 (4.30-5.90) m/uL Hgb 11.1 L (13.0-17.5) gm/dL Hct 35.4 L (39.0-53.0) % MCV 79.1 L (80.0-100.0) fL MCH 24.9 L (25.0-35.0) pg MCHC 31.5 (31.0-37.0) g/dL RDW 14.7 (11.5-15.5) % Plt Count 347 (150-450) k/uL MPV 6.2 Neutrophils % 85 % Lymphocytes % 8 % Monocytes % 6 % Eosinophils % 0 % Basophils % 0 % Neutrophils # 7.0 (1.3-7.7) k/uL Lymphocytes # 0.6 L (1.0-4.8) k/uL Monocytes # 0.5 (0-1.0) k/uL Eosinophils # 0.0 (0-0.7) k/uL Basophils # 0.0 (0-0.2) k/uL Hypochromasia Slight Sodium 136 L (137-145) mmol/L Potassium 3.7 (3.5-5.1) mmol/L Chloride 102 (98-107) mmol/L Carbon Dioxide 21 L (22-30) mmol/L Anion Gap 13 mmol/L BUN 14 (9-20) mg/dL Creatinine 0.74 (0.66-1.25) mg/dL Est GFR (CKD-EPI)AfAm >90 (>60 ml/min/1.73 sqM) Est GFR (CKD-EPI)NonAf >90 (>60 ml/min/1.73 sqM) Glucose 82 (74-99) mg/dL Calcium 9.6 (8.4-10.2) mg/dL Total Bilirubin 0.8 (0.2-1.3) mg/dL AST 20 (17-59) U/L ALT 9 (4-49) U/L Alkaline Phosphatase 68 (38-126) U/L Total Protein 7.5 (6.3-8.2) g/dL Albumin 4.2 (3.5-5.0) g/dL Lipase 32 (23-300) U/L Urine Color Yellow Urine Appearance Clear (Clear) Urine pH 5.5 (5.0-8.0) Ur Specific [place] 1.027 (1.001-1.035) Urine Protein 1+ H (Negative) Urine Glucose (UA) Negative (Negative) Urine Ketones 4+ H (Negative) Urine Blood Negative (Negative) Urine Nitrite Negative (Negative) Urine Bilirubin 1+ H (Negative) Urine Urobilinogen 3.0 (<2.0) mg/dL Ur Leukocyte Esterase Negative (Negative) Urine RBC 1 (0-5) /hpf Urine WBC 4 (0-5) /hpf Ur Squamous Epith Cells 1 (0-4) /hpf Hyaline Casts 11 H (0-2) /lpf Urine Mucus Many H (None) /hpf Disposition Clinical Impression: Intractable abdominal pain, Nausea & vomiting Disposition: ADMITTED IP TO THIS HOSP Condition: Fair Is patient prescribed a controlled substance at d/c from ED?: No Referrals: Freddy Burton MD [Primary Care Provider] - 1-2 days Time of Disposition: 23:54
[2020-11-12 21:40] LABS: ALT 9 U/L (4-49); AST 20 U/L (17-59); African American GFR (CKD) >90 (>60 ml/min/1.73 sqM); Albumin 4.2 g/dL (3.5-5.0); Alkaline Phosphatase 68 U/L (38-126); Anion Gap 13 mmol/L; Blood Urea Nitrogen 14 mg/dL (9-20); Calcium 9.6 mg/dL (8.4-10.2); Carbon Dioxide 21 mmol/L (22-30); Chloride 102 mmol/L (98-107); Glucose 82 mg/dL (74-99); Lipase 32 U/L (23-300); Non-African American GFR(CKD) >90 (>60 ml/min/1.73 sqM); Potassium 3.7 mmol/L (3.5-5.1); Sodium 136 mmol/L (137-145); Total Bilirubin 0.8 mg/dL (0.2-1.3); Total Protein 7.5 g/dL (6.3-8.2)
[2020-11-12] MEDS ORDERED: LORazepam 2 MG/ML INJ IV PRN (23:51)
[2020-11-12] MEDS ORDERED: NALOXONE 0.4 MG/ML 1 ML VIAL IV PRN (23:51)
[2020-11-13] MEDS: HYDROmorphone 1 MG/ML 1 ML SYRINGE IVP PRN ×4 (00:54→11:13)
[2020-11-13] MEDS: SODIUM CHLORIDE 0.9% 1,000 ML IV SCH ×2 (00:54→11:19)
[2020-11-13] MEDS: ONDANSETRON 4 MG/2 ML VIAL IVP PRN ×2 (03:43→11:18)
[2020-11-13 07:37] VITALS: TEMP 98.3
[2020-11-13 08:34] VITALS: BP 168/80; PULSE 79; RESP 18
[2020-11-13] MEDS ORDERED: FAMOTIDINE 20 MG TAB PO PRN (10:20)
[2020-11-13] MEDS ORDERED: DOCUSATE 100 MG CAP PO PRN (10:20)
[2020-11-13] MEDS ORDERED: PANTOPRAZOLE 40 MG TABLET PO SCH (10:23)
[2020-11-13] MEDS ORDERED: TRIAMTERENE-HCTZ 37.5-25MG 1 EACH CAP PO SCH (10:30)
[2020-11-13] MEDS ORDERED: HYDROcodone/APAP 10-325MG 1 EACH TAB PO PRN (12:29)
--- NOTE | 2020-11-13 22:26 | P.HPIM ---
History of Present Illness H&P Date: 11/13/20 Chief Complaint: Abdominal pain History of presenting complaint: This is a 60-year-old patient who follows with Dr. Burton. Chronic stable medical conditions include GERD, hypertension, osteoarthritis, gastritis duodenitis from recent EGD, arthritis in multiple joints, peripheral neuropathy, iron deficiency anemia. Patient has a known history of rectal cancer. Underwent low anterior resection, developed a leak. Had a stent. Placed at the leaking site. Which eventually converted to the wall of the rectum partially. This led to further obstruction. Patient landed up having a diverging ostomy. Ostomy within reversed recently at [facility] in June 2020. In and a loop colostomy again for recurrent obstruction at the stent site. Patient was here 2 weeks ago. Underwent EGD by Dr. Emerson. Found to have mild gastritis and duodenitis. Had a computed tomography scan of the abdomen 2 weeks ago underwent nonspecific jejunal loop prominence. Patient was just in the hospital from through November 11. Patient seen by both by Dr. Karissa Johnson from GI and Dr. Coyel from general surgery. He has been told repeatedly and by the surgeon that he needs to follow-up with his original surgeon. Patient now presents with the exact same symptoms. Lower abdominal pain. Decreased appetite. No fever no chills. . Review of systems: GEN.: Tired EYES: None HEENT: None NECK: None RESPIRATORY: None CARDIOVASCULAR: None GASTROINTESTINAL: As above GENITOURINARY: None MUSCULOSKELETAL: [Joint pains LYMPHATICS: None HEMATOLOGICAL: None PSYCHIATRY: Anxious NEUROLOGICAL: None Past medical history to include: Rectal cancer, GERD, hypertension, obstructive arthritis, mild gastritis and duodenitis, rectal cancer in 2017 with colectomy ileostomy and reversal 2 more pills, radiation, partial colonic obstruction secondary to Arabella had a diverticular colostomy, peripheral neuropathy, iron deficiency anemia Social history: Patient started smoking as a teenager and quit in 1998. Alcohol rarely. Lives alone in the apartment. Uses a cane a occasionally Physical examination: VITAL SIGNS: 98.3, 75, 17, 147/73, 96% room air GENERAL: BMI 41.3, laying in bed, awake. EYES: Pupils equal. Conjunctiva normal. HEENT: External appearance of nose and ears normal, oral cavity grossly normal. NECK: JVD not raised; masses not palpable. HEART: First and second heart sounds are normal; no edema. LUNGS: Respiratory rate normal; clear to auscultation. ABDOMEN: Soft, mild suprapubic tenderness, no guarding rigidity, liver spleen not palpable, no masses palpable. Surgical scars, colostomy on the left side Musculoskeletal: Evidence of OA PSYCH: Alert and oriented x3; mood and affect anxiousl. NEUROLOGICAL: Cranial nerves grossly intact; no facial asymmetry, power and sensation grossly intact. LYMPHATICS: No lymph nodes palpable in the axilla and neck INVESTIGATIONS, reviewed in the clinical context: WBC 8.2 hemoglobin 11.1 platelets 347 potassium 3.7 creatinine 0.74 Coronavirus [PCR]-not detected Assessment and plan: -This is a patient extensive surgical history. Presents with the same lower abdominal pain with these presented several times to the ER in the hospital. Patient does not want to follow-up with his own surgeon. He is supposed follow- up with a colorectal surgeon. -GERD, continue Protonix -Mild gastritis mild duodenitis per recent EGD, on Protonix -Essential hypertension, on diuretics -Primary osteoarthritis, use Tylenol when necessary -Peripheral neuropathy, follow clinically -Diverging loop colostomy I explained to the patient at length about his discussion with Dr. Coyle last admission that I spoke to Dr. Coyle myself last time. Patient does need to follow up with the colorectal surgeon. Patient is requesting IV Dilaudid. I did explain to him at length why IV Dilaudid is not indicated for chronic pain. Advance diet Past Medical History Past Medical History: Cancer, GERD/Reflux, Osteoarthritis (OA) Additional Past Medical History / Comment(s): Pt admitted to [facility] on 12/01/19 with a fall/struck R side abdomin/abdominal pain/vomiting/decrease ostomy function/incisional abdominal hernia. Other hx: Rectal cancer 2017 with colec phyllis/ileostomy then reversal/chemo pills and radiation, partial colonic obstruction-pt sent to [place] and had diverting loop colostomy, chronic low back pain, arthritis in multiple joints, neuropathy bilateral feet/toes and R hand, iron deficiency anemia. History of Any Multi-Drug Resistant Organisms: None Reported Past Surgical History: Appendectomy, Bowel Resection, Orthopedic Surgery, Tonsillectomy Additional Past Surgical History / Comment(s): Colectomy/ileostomy with reversal, diverting loop colostomy, colonoscopies, L elbow bursa surgery, double hernia repair Past Anesthesia/Blood Transfusion Reactions: No Reported Reaction Past Psychological History: No Psychological Hx Reported Additional Psychological History / Comment(s): Pt resides in an apartment alone. Pt has a cane which he uses prn. He drives. Smoking Status: Former smoker Past Alcohol Use History: Rare Additional Past Alcohol Use History / Comment(s): Pt started smoking as a teen and quit in 1998. Past Drug Use History: None Reported - Past Family History Mother Family Medical History: Cancer, Diabetes Mellitus Additional Family Medical History / Comment(s): from liver cancer Father Family Medical History: Myocardial Infarction ([place]) Additional Family Medical History / Comment(s): Pt has not spoken to his father in years and does not know much of his medical hx. Medications and Allergies Home Medications Medication Instructions Recorded Confirmed Type Docusate [Colace] 100 mg PO DAILY PRN 12/14/19 11/12/20 History HYDROcodone/APAP 10-325MG [[place] 2 tab PO Q6H PRN #16 tab 12/26/19 11/12/20 Rx 10-325] Famotidine [Pepcid] 20 mg PO BID PRN 05/11/20 11/12/20 History Triamterene-Hctz 37.5-25Mg 1 cap PO DAILY 09/03/20 11/12/20 History [Dyazide 37.5-25 Capsule] Pantoprazole Sodium [Protonix] 40 mg PO DAILY #30 tablet. 11/01/20 11/12/20 Rx Allergies Allergy/AdvReac Type Severity Reaction Status Date / Time ketorolac [From Toradol] Allergy Nausea & Verified 11/12/20 21:56 Vomiting morphine Allergy itching, Verified 11/12/20 21:56 upset stomach Physical Exam Vitals: Vital Signs Temp Pulse Pulse Resp BP BP Pulse Ox 11/13/20 08:00 98.3 F 79 18 168/80 97 11/13/20 04:31 98.3 F 75 17 147/73 96 11/13/20 02:40 18 11/13/20 00:55 98.5 F 92 18 126/71 98 11/12/20 21:55 98 18 138/72 97 11/12/20 20:55 92 18 136/74 98 11/12/20 19:55 99.4 F 115 H 20 137/81 98 Intake and Output 11/12/20 11/13/20 11/13/20 22:59 06:59 14:59 Intake Total 600 Balance 600 Intake: IV 600 Sodium Chloride 0.9% 1, 600 000 ml @ 75 mls/hr IV . [id number] JOY Rx#:[id number] Other: Voiding Method Toilet # Voids 1 Weight 127.006 kg 127.006 kg Results CBC & Chem 7: 11/12/20 21:02 11/12/20 21:02 Labs: Abnormal Lab Results - Last 24 Hours (Table) 11/12/20 11/12/20 11/12/20 Range/Units 20:52 21:02 21:02 Hgb 11.1 L (13.0-17.5) gm/dL Hct 35.4 L (39.0-53.0) % MCV 79.1 L (80.0-100.0) fL MCH 24.9 L (25.0-35.0) pg Lymphocytes # 0.6 L (1.0-4.8) k/uL Sodium 136 L (137-145) mmol/L Carbon Dioxide 21 L (22-30) mmol/L Urine Protein 1+ H (Negative) Urine Ketones 4+ H (Negative) Urine Bilirubin 1+ H (Negative) Hyaline Casts 11 H (0-2) /lpf Urine Mucus Many H (None) /hpf Thrombosis Risk Factor Assmnt - Choose All That Apply Each Factor Represents 1 point: Age 41-60 years, Obesity (BMI >25) Thrombosis Risk Factor Assessment Total Risk Factor Score: 2 Thrombosis Risk Factor Assessment Level: Low Risk
--- NOTE | 2020-11-13 22:28 | P.DS ---
Providers Date of admission: 11/12/20 23:41 Expected date of discharge: 11/13/20 Attending physician: Nav Sandoval Primary care physician: Freddy Micheal [facility] Course: Chief Complaint: Abdominal pain History of presenting complaint: This is a 60-year-old patient who follows with Dr. Burton. Chronic stable medical conditions include GERD, hypertension, osteoarthritis, gastritis duodenitis from recent EGD, arthritis in multiple joints, peripheral neuropathy, iron deficiency anemia. Patient has a known history of rectal cancer. Underwent low anterior resection, developed a leak. Had a stent. Placed at the leaking site. Which eventually converted to the wall of the rectum partially. This led to further obstruction. Patient landed up having a diverging ostomy. Ostomy within reversed recently at [facility] in June 2020. In and a loop colostomy again for recurrent obstruction at the stent site. Patient was here 2 weeks ago. Underwent EGD by Dr. Emerson. Found to have mild gastritis and duodenitis. Had a computed tomography scan of the abdomen 2 weeks ago underwent nonspecific jejunal loop prominence. Patient was just in the hospital from through November 11. Patient seen by both by Dr. Karissa Johnson from GI and Dr. Coyle from general surgery. He has been told repeatedly and by the surgeon that he needs to follow-up with his original surgeon. Patient now presents with the exact same symptoms. Lower abdominal pain. Decreased appetite. No fever no chills. Patient sees Dr. mahajan of functional pelvic pain. He has no fever no white count. It was discussed at length with him that he's been told several times to follow-up with his own surgeon/colorectal surgeon. He said he'll follow-up with Dr. Coyle in the office and get a referral for the same Past medical history to include: Rectal cancer, GERD, hypertension, obstructive arthritis, mild gastritis and duodenitis, rectal cancer in 2017 with colectomy ileostomy and reversal 2 more pills, radiation, partial colonic obstruction secondary to Arabella had a diverticular colostomy, peripheral neuropathy, iron deficiency anemia Social history: Patient started smoking as a teenager and quit in 1998. Alcohol rarely. Lives alone in the apartment. Uses a cane a occasionally Physical examination: VITAL SIGNS: 98.3, 75, 17, 147/73, 96% room air GENERAL: BMI 41.3, laying in bed, awake. EYES: Pupils equal. Conjunctiva normal. HEENT: External appearance of nose and ears normal, oral cavity grossly normal. NECK: JVD not raised; masses not palpable. HEART: First and second heart sounds are normal; no edema. LUNGS: Respiratory rate normal; clear to auscultation. ABDOMEN: Soft, mild suprapubic tenderness, no guarding rigidity, liver spleen not palpable, no masses palpable. Surgical scars, colostomy on the left side Musculoskeletal: Evidence of OA PSYCH: Alert and oriented x3; mood and affect anxiousl. INVESTIGATIONS, reviewed in the clinical context: WBC 8.2 hemoglobin 11.1 platelets 347 potassium 3.7 creatinine 0.74 Coronavirus [PCR]-not detected Assessment and plan: -This is a patient extensive surgical history. Presents with the same lower abdominal pain with these presented several times to the ER in the hospital. Patient does not want to follow-up with his own surgeon. He is supposed follow- up with a colorectal surgeon. Likely functional pelvic/abdominal pain. No fever no white count -GERD, continue Protonix -Mild gastritis mild duodenitis per recent EGD, on Protonix -Essential hypertension, on diuretics -Primary osteoarthritis, use Tylenol when necessary -Peripheral neuropathy, follow clinically -Diverging loop colostomy Disposition: Home Patient Condition at Discharge: Fair Plan - Discharge Summary Discharge Rx Participant: No New Discharge Prescriptions: Continue Docusate [Colace] 100 mg PO DAILY PRN PRN Reason: Constipation HYDROcodone/APAP 10-325MG [[place] 10-325] 2 tab PO Q6H PRN #16 tab PRN Reason: Pain Famotidine [Pepcid] 20 mg PO BID PRN PRN Reason: Gi Upset Triamterene-Hctz 37.5-25Mg [Dyazide 37.5-25 Capsule] 1 cap PO DAILY Pantoprazole Sodium [Protonix] 40 mg PO DAILY #30 tablet.dr Discharge Medication List Docusate [Colace] 100 mg PO DAILY PRN 12/14/19 [History] HYDROcodone/APAP 10-325MG [[place] 10-325] 2 tab PO Q6H PRN #16 tab 12/26/19 [Rx] Famotidine [Pepcid] 20 mg PO BID PRN 05/11/20 [History] Triamterene-Hctz 37.5-25Mg [Dyazide 37.5-25 Capsule] 1 cap PO DAILY 09/03/20 [History] Pantoprazole Sodium [Protonix] 40 mg PO DAILY #30 tablet. 11/01/20 [Rx] Follow up Appointment(s)/Referral(s): Freddy Burton MD [Primary Care Provider] - 1-2 days Patient Instructions/Handouts: Acute Nausea and Vomiting (DC), Acute Abdominal Pain (DC) Activity/Diet/Wound Care/Special Instructions: Liquid diet advance to soft bland foods as tolerated. Follow up with Dr. Lawson for colorectal specialist referral Discharge Disposition: HOME SELF-CARE
== END 2020-11-13 13:02 | disposition home or self-care (01) ==
LOC: EC 19:25 → 4SSUR 23:41
PROVIDERS: ADMIT Hospitalist; ATTEND Hospitalist
DX: R10.30 Lower abdominal pain, unspecified (principal); R10.2 Pelvic and perineal pain; R11.2 Nausea with vomiting, unspecified; R19.7 Diarrhea, unspecified; K21.9 Gastro-esophageal reflux disease without esophagitis; G89.29 Other chronic pain; M54.5 Low back pain; G62.9 Polyneuropathy, unspecified; D50.9 Iron deficiency anemia, unspecified; I10 Essential (primary) hypertension; M19.91 Primary osteoarthritis, unspecified site; K29.70 Gastritis, unspecified, without bleeding; K29.80 Duodenitis without bleeding; E66.9 Obesity, unspecified; Z68.41 Body mass index [BMI] 40.0-44.9, adult; Z93.3 Colostomy status; Z79.899 Other long term (current) drug therapy; Z79.891 Long term (current) use of opiate analgesic; Z88.5 Allergy status to narcotic agent; Z91.81 History of falling; Z85.048 Personal history of other malignant neoplasm of rectum, rectosigmoid junction, and anus; Z92.21 Personal history of antineoplastic chemotherapy; Z87.891 Personal history of nicotine dependence; Z92.3 Personal history of irradiation; Z90.49 Acquired absence of other specified parts of digestive tract; Z83.3 Family history of diabetes mellitus; Z82.49 Family history of ischemic heart disease and other diseases of the circulatory system; Z80.0 Family history of malignant neoplasm of digestive organs; Z20.822 Contact with and (suspected) exposure to COVID-19
CPT/HCPCS: 96376 ×3; 96361 ×2; 96374; 96375; 99284; 36415; 80053; 83690; 85025; 81001; 87635; G0378; J2405 ×2; J1170 ×2; C9113

== ENCOUNTER 2021-12-08 15:19 | Inpatient (IN) | payer OTHER ==
[2021-12-08] MEDS ORDERED: HYDROmorphone 1 MG/ML 1 ML SYRINGE IVP STA ×3 (15:48→22:10)
--- NOTE | 2021-12-08 16:08 | ED ---
General Adult HPI - General Source: patient, EMS, RN notes reviewed, old records reviewed Mode of arrival: EMS Limitations: physical limitation <Martin Mckeon - Last Filed: 12/08/21 18:38> <Tray Burgess - Last Filed: 12/08/21 22:14> - General Chief complaint: GI Bleed Stated complaint: GI Bleed Time Seen by Provider: 12/08/21 15:25 - History of Present Illness Initial comments: This a 61-year-old male who presents to the emergency department stating that he had a rectal cancer years ago and then he had an infection in the cleft of his buttocks. Patient states her small hole there and it is very painful and it is been draining quite a bit of blood. Patient states he went to see his primary medical care doctor and they sent him in to see us in the ER to be admitted and he refuses to be transferred anywhere and refuse to see anyone but Dr. Lawson. Patient states this is been ongoing for about a year. Patient states there has been quite a bit of drainage but more recently quite a bit of blood draining. Patient states she's been seen down at [facility] but he refuses to go there again. Patient denies any fever chills per patient denies any abdominal pain patient denies nausea vomiting or diarrhea. (Martin Mckeon) - Related Data Home Medications Medication Instructions Recorded Confirmed HYDROcodone/APAP 10-325MG [[facility] 2 tab PO Q6H PRN 12/08/21 12/08/21 10-325] Meloxicam 15 mg PO DAILY 12/08/21 12/08/21 cefTRIAXone [Rocephin] 2 gm IV DAILY 12/08/21 12/08/21 metFORMIN HCL [Glucophage] 500 mg PO DAILY 12/08/21 12/08/21 Allergies Allergy/AdvReac Type Severity Reaction Status Date / Time ketorolac [From Toradol] Allergy Nausea & Verified 12/08/21 15:34 Vomiting morphine Allergy itching, Verified 12/08/21 15:34 upset stomach Review of Systems ROS Other: All systems not noted in ROS Statement are negative. <Martin Mckeon - Last Filed: 12/08/21 18:38> ROS Other: All systems not noted in ROS Statement are negative. <Tray Burgess - Last Filed: 12/08/21 22:14> ROS Statement: Those systems with pertinent positive or pertinent negative responses have been documented in the HPI. Past Medical History Past Medical History: Cancer, GERD/Reflux, Osteoarthritis (OA) Additional Past Medical History / Comment(s): Rectal cancer 2017 with colectomy/ileostomy then reversal/chemo pills and radiation, partial colonic obstruction-pt sent to [place] and had diverting loop colostomy, chronic low back pain, arthritis in multiple joints, neuropathy bilateral feet/toes and R hand, iron deficiency anemia. History of Any Multi-Drug Resistant Organisms: None Reported Past Surgical History: Appendectomy, Bowel Resection, Hernia Repair, Orthopedic Surgery, Tonsillectomy Additional Past Surgical History / Comment(s): Colectomy/ileostomy with reversal, diverting loop colostomy, colonoscopies, L elbow bursa surgery, double hernia repair Past Anesthesia/Blood Transfusion Reactions: No Reported Reaction Past Psychological History: No Psychological Hx Reported Smoking Status: Former smoker - Past Family History Mother Family Medical History: Cancer (pancreatic), Diabetes Mellitus Additional Family Medical History / Comment(s): from liver cancer Father Family Medical History: Myocardial Infarction ([place]) Additional Family Medical History / Comment(s): Pt has not spoken to his father in years and does not know much of his medical hx. <Martin Mckeon - Last Filed: 12/08/21 18:38> General Exam Limitations: physical limitation <Martin Mckeon - Last Filed: 12/08/21 18:38> - General Exam Comments Initial Comments: GENERAL: Patient is well-developed and well-nourished. Patient is nontoxic and well- hydrated and is in mild distress. ENT: Neck is soft and supple. No significant lymphadenopathy is noted. Oropharynx is clear. Moist mucous membranes. EYES: The sclera were anicteric and conjunctiva were pink and moist. Extraocular m ovements were intact and pupils were equal round and reactive to light. Eyelids were unremarkable. PULMONARY: Unlabored respirations. Good breath sounds bilaterally. No audible rales rhonchi or wheezing was noted. CARDIOVASCULAR: There is a regular rate and rhythm without any murmurs gallops or rubs. ABDOMEN: Soft and nontender with normal bowel sounds. BUTTOCKS: Between the cheeks into the buttocks there is a very small opening which is draining some blood and some opaque material which could be pus. I did take a culture. The area around it is erythematous like a superficial cellulitis or possibly the beginnings of a pressure sore SKIN: Skin is clear with no lesions or rashes and otherwise unremarkable. NEUROLOGIC: Patient is alert and oriented x3. Cranial nerves II through XII are grossly intact. Motor and sensory are also intact. Normal speech, volume and content. Symmetrical smile. MUSCULOSKELETAL: Normal extremities with adequate strength and full range of motion. LYMPHATICS: No significant lymphadenopathy is noted PSYCHIATRIC: Normal psychiatric evaluation. (Martin Mckeon) Course Vital Signs 12/08/21 12/08/21 12/08/21 15:25 16:00 17:00 Temperature 97.4 F L Pulse Rate 103 H 87 89 Respiratory 18 16 16 Rate Blood Pressure 117/83 103/60 98/54 O2 Sat by Pulse 97 98 97 Oximetry 12/08/21 12/08/21 18:00 19:00 Temperature Pulse Rate 86 84 Respiratory 16 16 Rate Blood Pressure 127/52 118/54 O2 Sat by Pulse 96 96 Oximetry Medical Decision Making - Lab Data Result diagrams: 12/08/21 16:14 12/08/21 16:14 <Martin Mckeon - Last Filed: 12/08/21 18:38> - Lab Data Result diagrams: 12/08/21 16:14 12/08/21 16:14 <Tray Burgess - Last Filed: 12/08/21 22:14> - Medical Decision Making I went back in to discuss the patient's results with him he was very upset because he states this is been ongoing for a year and he can't continue living like this. Patient states he does not want to be transferred anywhere else he wants to be admitted here and he wants to see Dr. maki only EKG shows sinus rhythm at 96 bpm LA interval is 151 QRSs 108 QT interval 344 QTC is 397. Patient's EKG shows no ST segment elevation or depression. I spoke with Dr. Burk she agreed to admit the patient admitted the patient wrote admitting orders Dr. Burk spoke with Dr. shanthi Lawson said the patient needed to go to [facility] patient eventually agreed I spoke with [facility] they agreed to accept the transfer. (Martin Mckeon) This patient is pending transfer, and I was asked to enter continue antibiotic and analgesic medications as well as a home med. No other interaction with patient. (Tray Burgess) - Lab Data Lab Results 12/08/21 12/08/21 12/08/21 Range/Units 16:14 16:14 16:14 WBC 5.5 (3.8-10.6) k/uL RBC 4.13 L (4.30-5.90) m/uL Hgb 10.1 L (13.0-17.5) gm/dL Hct 32.2 L (39.0-53.0) % MCV 77.9 L (80.0-100.0) fL MCH 24.4 L (25.0-35.0) pg MCHC 31.3 (31.0-37.0) g/dL RDW 15.7 H (11.5-15.5) % Plt Count 264 (150-450) k/uL MPV 6.6 Neutrophils % 81 % Lymphocytes % 6 % Monocytes % 9 % Eosinophils % 0 % Basophils % 0 % Neutrophils # 4.4 (1.3-7.7) k/uL Lymphocytes # 0.3 L (1.0-4.8) k/uL Monocytes # 0.5 (0-1.0) k/uL Eosinophils # 0.0 (0-0.7) k/uL Basophils # 0.0 (0-0.2) k/uL Hypochromasia Moderate Microcytosis Slight PT 10.6 (9.0-12.0) sec INR 1.0 (<1.2) APTT 26.8 (22.0-30.0) sec Sodium (137-145) mmol/L Potassium (3.5-5.1) mmol/L Chloride (98-107) mmol/L Carbon Dioxide (22-30) mmol/L Anion Gap mmol/L BUN (9-20) mg/dL Creatinine (0.66-1.25) mg/dL Est GFR (CKD-EPI)AfAm (>60 ml/min/1.73 sqM) Est GFR (CKD-EPI)NonAf (>60 ml/min/1.73 sqM) Glucose (74-99) mg/dL Plasma Lactic Acid Gerry (0.7-2.0) mmol/L Calcium (8.4-10.2) mg/dL Total Bilirubin (0.2-1.3) mg/dL AST (17-59) U/L ALT (4-49) U/L Alkaline Phosphatase (38-126) U/L Total Protein (6.3-8.2) g/dL Albumin (3.5-5.0) g/dL Urine Color Yellow Urine Appearance Clear (Clear) Urine pH 6.0 (5.0-8.0) Ur Specific [place] 1.041 H (1.001-1.035) Urine Protein 1+ H (Negative) Urine Glucose (UA) 1+ H (Negative) Urine Ketones Trace H (Negative) Urine Blood Negative (Negative) Urine Nitrite Negative (Negative) Urine Bilirubin Negative (Negative) Urine Urobilinogen <2.0 (<2.0) mg/dL Ur Leukocyte Esterase Negative (Negative) Urine RBC 1 (0-5) /hpf Urine WBC 2 (0-5) /hpf Ur Squamous Epith Cells <1 (0-4) /hpf Hyaline Casts 3 H (0-2) /lpf Urine Mucus Few H (None) /hpf Coronavirus (PCR) (Not Detectd) 12/08/21 12/08/21 12/08/21 Range/Units 16:14 16:14 18:19 WBC (3.8-10.6) k/uL RBC (4.30-5.90) m/uL Hgb (13.0-17.5) gm/dL Hct (39.0-53.0) % MCV (80.0-100.0) fL MCH (25.0-35.0) pg MCHC (31.0-37.0) g/dL RDW (11.5-15.5) % Plt Count (150-450) k/uL MPV Neutrophils % % Lymphocytes % % Monocytes % % Eosinophils % % Basophils % % Neutrophils # (1.3-7.7) k/uL Lymphocytes # (1.0-4.8) k/uL Monocytes # (0-1.0) k/uL Eosinophils # (0-0.7) k/uL Basophils # (0-0.2) k/uL Hypochromasia Microcytosis PT (9.0-12.0) sec INR (<1.2) APTT (22.0-30.0) sec Sodium 132 L (137-145) mmol/L Potassium 4.2 (3.5-5.1) mmol/L Chloride 99 (98-107) mmol/L Carbon Dioxide 25 (22-30) mmol/L Anion Gap 8 mmol/L BUN 14 (9-20) mg/dL Creatinine 0.83 (0.66-1.25) mg/dL Est GFR (CKD-EPI)AfAm >90 (>60 ml/min/1.73 sqM) Est GFR (CKD-EPI)NonAf >90 (>60 ml/min/1.73 sqM) Glucose 144 H (74-99) mg/dL Plasma Lactic Acid Gerry 1.3 (0.7-2.0) mmol/L Calcium 8.5 (8.4-10.2) mg/dL Total Bilirubin 0.5 (0.2-1.3) mg/dL AST 28 (17-59) U/L ALT 21 (4-49) U/L Alkaline Phosphatase 78 (38-126) U/L Total Protein 6.2 L (6.3-8.2) g/dL Albumin 3.1 L (3.5-5.0) g/dL Urine Color Urine Appearance (Clear) Urine pH (5.0-8.0) Ur Specific [place] (1.001-1.035) Urine Protein (Negative) Urine Glucose (UA) (Negative) Urine Ketones (Negative) Urine Blood (Negative) Urine Nitrite (Negative) Urine Bilirubin (Negative) Urine Urobilinogen (<2.0) mg/dL Ur Leukocyte Esterase (Negative) Urine RBC (0-5) /hpf Urine WBC (0-5) /hpf Ur Squamous Epith Cells (0-4) /hpf Hyaline Casts (0-2) /lpf Urine Mucus (None) /hpf Coronavirus (PCR) Not Detected (Not Detectd) Disposition Time of Disposition: 17:05 - Out of Hospital Transfer - Req. Specs Out of Hospital Transfer - Requested Specifics: Other Emergency Center ([facility]) <Martin Mckeon - Last Filed: 12/08/21 18:38> <Tray Burgess - Last Filed: 12/08/21 22:14> Clinical Impression: Bleeding from wound, Cellulitis of buttock, Infected wound Disposition: OTHER INSTITUTION NOT DEFINED Referrals: Otoniel Gann MD [Primary Care Provider] - 1-2 days
[2021-12-08] MEDS: SODIUM CHLORIDE 0.9% 500 ML 500 ML IV SCH ×2 (16:28→17:55)
[2021-12-08 16:37] LABS: Appearance,Urine Clear (Clear); Bilirubin,Urine Negative (Negative); Blood,Urine Negative (Negative); Color,Urine Yellow; Glucose,Urine (UA) 1+ (Negative); Hyaline Casts,Urine 3 /lpf (0-2); Ketones,Urine Trace (Negative); Leukocyte Esterase,Urine Negative (Negative); Mucus,Urine Few /hpf; Nitrite,Urine Negative (Negative); Protein,Urine 1+ (Negative); RBC,Urine 1 /hpf (0-5); Specific Gravity,Urine 1.041 (1.001-1.035); Squamous Epithelial Cell,Urine <1 /hpf (0-4); Urobilinogen,Urine <2.0 mg/dL (<2.0); WBC,Urine 2 /hpf (0-5)
[2021-12-08 16:47] LABS: Partial Thromboplastin Time 26.8 sec (22.0-30.0); Prothrombin Time 10.6 sec (9.0-12.0)
[2021-12-08 16:49] LABS: Basophils % (A) 0 %; Eosinophils % (A) 0 %; HCT 32.2 % (39.0-53.0); HGB 10.1 gm/dL (13.0-17.5); Hypochromasia Moderate; Lymphocytes # (A) 0.3 k/uL (1.0-4.8); Lymphocytes % (A) 6 %; MCH 24.4 pg (25.0-35.0); MCHC 31.3 g/dL (31.0-37.0); MCV 77.9 fL (80.0-100.0); Mean Platelet Volume 6.6; Microcytosis Slight; Monocytes # (A) 0.5 k/uL (0-1.0); Monocytes % (A) 9 %; Neutrophils # (A) 4.4 k/uL (1.3-7.7); Neutrophils % (A) 81 %; Platelet Count 264 k/uL (150-450); RBC 4.13 m/uL (4.30-5.90); RDW 15.7 % (11.5-15.5); WBC 5.5 k/uL (3.8-10.6)
[2021-12-08 16:52] LABS: Albumin 3.1 g/dL (3.5-5.0); Chloride 99 mmol/L (98-107); Glucose 144 mg/dL (74-99); Potassium 4.2 mmol/L (3.5-5.1); Sodium 132 mmol/L (137-145); Total Protein 6.2 g/dL (6.3-8.2)
[2021-12-08 16:53] LABS: ALT 21 U/L (4-49); AST 28 U/L (17-59); African American GFR (CKD) >90 (>60 ml/min/1.73 sqM); Alkaline Phosphatase 78 U/L (38-126); Anion Gap 8 mmol/L; Blood Urea Nitrogen 14 mg/dL (9-20); Calcium 8.5 mg/dL (8.4-10.2); Carbon Dioxide 25 mmol/L (22-30); Non-African American GFR(CKD) >90 (>60 ml/min/1.73 sqM); Total Bilirubin 0.5 mg/dL (0.2-1.3)
[2021-12-08] MEDS ORDERED: SODIUM CHLORIDE 0.9% 1,000 ML IV ONE (17:25)
[2021-12-08] MEDS ORDERED: PIPERACILLIN-TAZOBACTAM 3.375 GM in SODIUM CHLORIDE 0.9% 100 ML IVPB STA (18:05)
--- NOTE | 2021-12-08 18:40 | P.CONS ---
History of Present Illness - Reason for Consult Consult date: 12/08/21 possible admission Requesting physician: Martin Mckeon - Chief Complaint rectal bleeding - History of Present Illness Patient is a 61 yo CM with a hx of rectal cancer in 2017 s/p colostomy with rectal stents, DM 2, Morbid obesity who presented to the ED with c/o inabilty to care for himself, incresed pain and drainage from his rectal wound, and increased weakness. 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 He required transfer to [facility]. Patient states he is currently on IV antibiotics through his PICC line and has been taking them daily. He reports that they did not plan agree any persistent surgical procedures at that point in time. He is asking to be admitted here initially as he thinks Dr. Lawson can help him. He reports that he has been discharged home a nd has been sleeping in a chair. He has been unable to get up and down successfully. He went to his primary care physician who directed him to the ER due to his level of weakness, bleeding, and the unhealing nature of his wound. Patient seen and examined at bedside in the emergency department. He reports that he has been taking his IV antibiotics. He states that he is getting weaker and not better at home. He lives alone and is unable to care for himself. He states that his wound has been draining more and more recently. It is also been draining bright red blood which is new. He reports that it soaks through his clothes and sheets at night. He states he has been taking his IV antibiotics as prescribed. He is feeling very frustrated and wants surgical correction of this problem. He states he has had poor appetite and has not been eating and drinking well. He complains of some shortness of breath and overall deconditioning. He denies any overt chest pain, nausea, vomiting, diarrhea. He is feeling very depressed and frustrated. Pertinent positives and negatives as discussed in HPI, a complete review of systems was performed and all other systems are negative. General: non toxic, no distress, appears at stated age, obese, malodorous Derm: warm, dry- PICC line in place left upper extremity without warmth, fluctuance, or erythema. Dressing appears to be barely intact and PICC line insertion is exposed to air. Head: atraumatic, normocephalic, symmetric Eyes: EOMI, no lid lag, anicteric sclera, pupils equal round reactive to light ENT: Nose and ears atraumatic, no thrush, no pharyngeal erythema Neck: No thyromegaly, no cervical lymphadenopathy, trachea midline, supple Mouth: no lip lesion, mucus membranes moist Cardiovascular: S1S2 reg, no murmur, positive posterior tibial pulse bilateral, b/l lymphedema, capillary refill less than 2 seconds Lungs: Decreased bs bilateral, no ronchi, no rales, no wheeze, no accessory muscle use Abdominal: soft, nontender to palpation, no guarding, unable to assess for organomegally due to body habitus, normal bowel sounds, colosotomy bag in place scaral red and indurated with small dime sized wound with serosanguanous drainage, possible fluctuance Ext: no gross muscle atrophy, muscle strength muscle strength 5 out of 5 in all 4 extremities, no contractures Neuro: CN II-XI grossly intact, light touch intact all 4 extremities, finger to nose within normal limits, Psych: Alert, oriented, appropriate affect Assessment/plan: 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 Lawson who states that patient needs evaluation by colorectal surgery and should again be transferred to [facility]. Case discussed with Dr. Mckeon ED physician who will facilitate transfer. Iron deficiency anemia, chronic at baseline - follow CBC GERD - PPI neuropathy Patient is informed of recommendations for transfer by Dr. Lawson and is in agreement with transfer. Past Medical History Past Medical History: Cancer, GERD/Reflux, Osteoarthritis (OA) Additional Past Medical History / Comment(s): Rectal cancer 2017 with colectomy /ileostomy then reversal/chemo pills and radiation, partial colonic obstruction- pt sent to [place] and had diverting loop colostomy, chronic low back pain, arthritis in multiple joints, neuropathy bilateral feet/toes and R hand, iron deficiency anemia. History of Any Multi-Drug Resistant Organisms: None Reported Past Surgical History: Appendectomy, Bowel Resection, Hernia Repair, Orthopedic Surgery, Tonsillectomy Additional Past Surgical History / Comment(s): Colectomy/ileostomy with reversal, diverting loop colostomy, colonoscopies, L elbow bursa surgery, double hernia repair Past Anesthesia/Blood Transfusion Reactions: No Reported Reaction Past Psychological History: No Psychological Hx Reported Smoking Status: Former smoker - Past Family History Mother Family Medical History: Cancer (pancreatic), Diabetes Mellitus Additional Family Medical History / Comment(s): from liver cancer Father Family Medical History: Myocardial Infarction ([place]) Additional Family Medical History / Comment(s): Pt has not spoken to his father in years and does not know much of his medical hx. Medications and Allergies Home Medications Medication Instructions Recorded Confirmed Type HYDROcodone/APAP 10-325MG [[facility] 2 tab PO Q6H PRN 12/08/21 12/08/21 History 10-325] Meloxicam 15 mg PO DAILY 12/08/21 12/08/21 History cefTRIAXone [Rocephin] 2 gm IV DAILY 12/08/21 12/08/21 History metFORMIN HCL [Glucophage] 500 mg PO DAILY 12/08/21 12/08/21 History Allergies Allergy/AdvReac Type Severity Reaction Status Date / Time ketorolac [From Toradol] Allergy Nausea & Verified 12/08/21 15:34 Vomiting morphine Allergy itching, Verified 12/08/21 15:34 upset stomach Physical Exam Osteopathic Statement: *. No significant issues noted on an osteopathic structural exam other than those noted in the History and Physical/Consult. Vitals: Vital Signs Temp Pulse Resp BP Pulse Ox 12/08/21 15:25 97.4 F L 103 H 18 117/83 97 Intake and Output 12/08/21 12/08/21 12/08/21 06:59 14:59 22:59 Other: Weight 166.468 kg Results CBC & Chem 7: 12/08/21 16:14 12/08/21 16:14 Labs: Abnormal Lab Results - Last 24 Hours (Table) 12/08/21 12/08/21 12/08/21 Range/Units 16:14 16:14 16:14 RBC 4.13 L (4.30-5.90) m/uL Hgb 10.1 L (13.0-17.5) gm/dL Hct 32.2 L (39.0-53.0) % MCV 77.9 L (80.0-100.0) fL MCH 24.4 L (25.0-35.0) pg RDW 15.7 H (11.5-15.5) % Lymphocytes # 0.3 L (1.0-4.8) k/uL Sodium 132 L (137-145) mmol/L Glucose 144 H (74-99) mg/dL Total Protein 6.2 L (6.3-8.2) g/dL Albumin 3.1 L (3.5-5.0) g/dL Ur Specific [place] 1.041 H (1.001-1.035) Urine Protein 1+ H (Negative) Urine Glucose (UA) 1+ H (Negative) Urine Ketones Trace H (Negative) Hyaline Casts 3 H (0-2) /lpf Urine Mucus Few H (None) /hpf
--- NOTE | 2021-12-08 19:40 | CT ---
EXAMINATION TYPE: CT pelvis w con CT DLP: 2272.6 mGycm, Automated exposure control for dose reduction was used. DATE OF EXAM: 12/08/2021 7:11 PM COMPARISON: CT abdomen pelvis most recent from 10/28/2020. CLINICAL INDICATION:Male, 61 years old with history of Infection buttocks; TECHNIQUE: Standard CT of the pelvis following the administration of 100 cc of Isovue [address] material. Coronal and sagittal reformats were performed. FINDINGS: Visualized portions of liver, spleen, pancreas, gallbladder are unremarkable. Right renal cyst measur ing 16 mm. PELVIS BLADDER: Unremarkable REPRODUCTIVE: Unremarkable. ABDOMEN & PELVIS STOMACH AND BOWEL: Extensive postsurgical changes to the large and small bowel with stent involving t he rectum and sigmoid colon. Soft tissue changes around the rectum are grossly unchanged from prior. Evaluation slightly limited given diffuse haziness is soft tissues. No evidence of bowel obstruction. PERITONEUM: No evidence of pneumoperitoneum or free fluid. VASCULATURE: Mild atherosclerotic calcifications are present throughout the abdominal aorta and its b ranches. MUSCULOSKELETAL: New osseous erosive changes to the posterior sacrum with a soft tissue tract extendi ng to the right gluteus ilana muscle. The coccyx is not definitively visualized suggesting. There i s end-stage osteoarthritic changes of the right hip with [id number] articulation and subchondral cy stic changes and sclerosis. No evidence of organizing fluid collection. LYMPH NODES: No gross evidence for lymphadenopathy. SOFT TISSUE/ABDOMINAL WALL: Small ventral wall umbilical hernia measuring 23 mm at the neck. IMPRESSION: Asymmetric inflammation changes are seen within the right gluteus ilana muscle which appears to be tracking from new erosive changes to the posterior cortex of the sacrum with nonvisualization/complet e erosion/destruction of the coccyx likely representing acute on chronic osteomyelitis. Phase of cont rast slightly limits evaluation for organizing fluid collection. Consider evaluation with MRI pelvis with IV contrast.
[2021-12-09] MEDS: HYDROcodone/APAP 10-325MG 1 EACH TAB PO PRN ×4 (01:39→20:32)
[2021-12-09] MEDS: HYDROmorphone 1 MG/ML 1 ML SYRINGE IVP PRN ×8 (03:04→22:17)
[2021-12-09] MEDS: PIPERACILLIN-TAZOBACTAM 3.375 GM in SODIUM CHLORIDE 0.9% 100 ML IVPB SCH ×3 (03:05→19:45)
[2021-12-09] MEDS ORDERED: metFORMIN 500 MG TAB PO SCH (09:00)
[2021-12-09] MEDS ORDERED: MELOXICAM 7.5 MG TAB PO SCH (09:00)
[2021-12-09 11:56] VITALS: TEMP 97
[2021-12-09] MEDS ORDERED: ONDANSETRON 4 MG/2 ML VIAL IVP PRN (14:47)
[2021-12-09] MEDS ORDERED: ALPRAZolam 0.25 MG TAB PO PRN (14:47)
[2021-12-09] MEDS ORDERED: MELATONIN 3 MG TABLET PO PRN (14:47)
[2021-12-09] MEDS ORDERED: NALOXONE 0.4 MG/ML 1 ML VIAL IV PRN (14:47)
[2021-12-09] MEDS: SODIUM CHLORIDE 0.9% 1,000 ML IV SCH ×2 (15:58→22:18)
[2021-12-09 17:03] LABS: HCT 31.7 % (39.0-53.0); HGB 9.6 gm/dL (13.0-17.5); Hypochromasia Marked; MCH 24.5 pg (25.0-35.0); MCHC 30.2 g/dL (31.0-37.0); MCV 81.3 fL (80.0-100.0); Platelet Count 285 k/uL (150-450); RDW 15.2 % (11.5-15.5); WBC 4.4 k/uL (3.8-10.6)
[2021-12-09 17:05] LABS: Glucose,Whole Blood 125 mg/dL (75-99)
--- NOTE | 2021-12-09 17:45 | P.PN ---
Subjective Progress Note Date: 12/09/21 (delayed charting seen at 1430) Principal diagnosis: drainage from sacral wound Patient is a 61 yo CM with a hx of rectal cancer in 2017 s/p colostomy with rectal stents, DM 2, Morbid obesity who presented to the ED with c/o inabilty to care for himself, incresed pain and drainage from his rectal wound, and increased weakness. Patient was here in Sep 2021 and had a sigmoidoscopy which showed 2 stents present wtih stricture of the distal rectum and complete o cclusion of the lumen colocutaneous fistula with additional tunneling down to the sacral bone. He required transfer to [facility]. Patient states he is currently on IV antibiotics through his PICC line and has been taking them daily. He reports that they did not plan agree any persistent surgical procedures at that point in time. He is asking to be admitted here initially as he thinks Dr. Lawson can help him. He reports that he has been discharged home and has been sleeping in a chair. He has been unable to get up and down successfully. He went to his primary care physician who directed him to the ER due to his level of weakness, bleeding, and the unhealing nature of his wound. Patient seen and examined at bedside in the emergency department. He is frustrated as he does not want to be in the ED anymore. He is asking for his home 2 norco every 6 hours. Pertinent positives and negatives as discussed in HPI, a complete review of systems was performed and all other systems are negative. General: ill appearing, no distress, appears older than stated age, Obese Derm: warm, dry Head: atraumatic, normocephalic, symmetric Eyes: EOMI, no lid lag, anicteric sclera, pupils equal round reactive to light ENT: Nose and ears atraumatic, no thrush, no pharyngeal erythema Neck: No thyromegaly, no cervical lymphadenopathy, trachea midline, supple Mouth: no lip lesion, mucus membranes moist Cardiovascular: S1S2 reg, no murmur, positive posterior tibial pulse bilateral, 4+ edema, capillary refill less than 2 seconds Lungs:Decreased bs bilateral, no ronchi, no rales, no wheeze, no accessory muscle use Abdominal: soft, nontender to palpation, no guarding, no appreciable organomegaly, normal bowel sounds Ext: no gross muscle atrophy, muscle strength muscle strength 5 out of 5 in all 4 extremities, no contractures Neuro: CN II-XI grossly intact, light touch intact all 4 extremities, finger to nose within normal limits, Psych: Alert, oriented, appropriate affect Assessment/plan: 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 and associated rectal stent Diverting loop colostomy Prior rectal cancer Morbid obesity - Patient has been on outpatient IV and oral ABX being managed by [facility] - Zosyn - Currently awaiting transfer to [facility] - consult ID while awaiting transfer - follow CBC - change dressing as needed - surgery recommended transfer to location with [facility] surgeon and patient has been following at [facility] Iron deficiency anemia, chronic at baseline - follow CBC GERD - PPI neuropathy Baording here as inpatient while awaiting bed at [facility]. Objective - Vital Signs Vital signs: Vital Signs Temp 97 F L 12/09/21 11:53 Pulse 101 H 12/09/21 11:53 Resp 20 12/09/21 11:53 BP 157/79 12/09/21 11:53 Pulse Ox 98 12/09/21 11:53 Intake & Output 12/08/21 12/09/21 12/09/21 18:59 06:59 18:59 Weight 166.468 kg - Labs CBC & Chem 7: 12/09/21 16:45 12/08/21 16:14 Labs: Abnormal Lab Results - Last 24 Hours (Table) 12/09/21 12/09/21 Range/Units 16:45 17:03 RBC 3.90 L (4.30-5.90) m/uL Hgb 9.6 L (13.0-17.5) gm/dL Hct 31.7 L (39.0-53.0) % MCH 24.5 L (25.0-35.0) pg MCHC 30.2 L (31.0-37.0) g/dL POC Glucose (mg/dL) 125 H (75-99) mg/dL Microbiology - Last 24 Hours (Table) 12/08/21 16:14 Gram Stain - Preliminary Buttock Wound Culture - Preliminary
[2021-12-09] MEDS: INSULIN ASPART (NovoLOG) 100 UNIT/ML VIAL SQ SCH ×2 (18:54→21:19)
[2021-12-09 21:20] LABS: Glucose,Whole Blood 126 mg/dL (75-99)
[2021-12-09 21:40] VITALS: BP 128/69; PULSE 72; RESP 16
--- NOTE | 2021-12-09 23:43 | P.CONS ---
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 coli Proteus and neymar erobic gram-negative bacilli patient now presenting to the [facility] ER yesterday for evaluation of worsening pain to the sacral area and persistent drainage from his sacral wound, patient described the pain to be more of a dull aching retrobulbar steroid obtain with no radiation with associated bloodstain drainage patient mention he has been infusing his antibiotic as scheduled patient denies high-grade fever though did have some chills denies any chest pain shortness of breath or cough some nausea but no vomiting on presentation to the hospital patient was afebrile slightly tachycardic did have a normal white count kidney function was normal urine was negative [place] PCR was negative patient did have a CT of the pelvis completed which shows asymmetric inflammation changes within the right gluteus ilana muscle which appears to be tracking with new erosive changes to the posterior coccyx with nonvisualization/complete erosion destruction of the coccyx likely representing acute on chronic osteomyelitis patient did have local cultures obtained has been continued on Zosyn infectious disease consulted this afternoon for further management Review of Systems Positive point has been mentioned in the HPI rest of the systems are negative Past Medical History Past Medical History: Cancer, GERD/Reflux, Osteoarthritis (OA) Additional Past Medical History / Comment(s): Rectal cancer 2017 with colectomy/ileostomy then reversal/chemo pills and radiation, partial colonic obstruction-pt sent to [place] and had diverting loop colostomy, chronic low back pain, arthritis in multiple joints, neuropathy bilateral feet/toes and R hand, iron deficiency anemia. History of Any Multi-Drug Resistant Organisms: None Reported Past Surgical History: Appendectomy, Bowel Resection, Hernia Repair, Orthopedic Surgery, Tonsillectomy Additional Past Surgical History / Comment(s): Colectomy/ileostomy with reversal, diverting loop colostomy, colonoscopies, L elbow bursa surgery, double hernia repair Past Anesthesia/Blood Transfusion Reactions: No Reported Reaction Past Psychological History: No Psychological Hx Reported Smoking Status: Former smoker - Past Family History Mother Family Medical History: Cancer (pancreatic), Diabetes Mellitus Additional Family Medical History / Comment(s): from liver cancer Father Family Medical History: Myocardial Infarction ([place]) Additional Family Medical History / Comment(s): Pt has not spoken to his father in years and does not know much of his medical hx. Medications and Allergies Home Medications Medication Instructions Recorded Confirmed Type HYDROcodone/APAP 10-325MG [[place] 2 tab PO Q6H PRN 12/08/21 12/08/21 History 10-325] Meloxicam 15 mg PO DAILY 12/08/21 12/08/21 History cefTRIAXone [Rocephin] 2 gm IV DAILY 12/08/21 12/08/21 History metFORMIN HCL [Glucophage] 500 mg PO DAILY 12/08/21 12/08/21 History Allergies Allergy/AdvReac Type Severity Reaction Status Date / Time ketorolac [From Toradol] Allergy Nausea & Verified 12/08/21 15:34 Vomiting morphine Allergy itching, Verified 12/08/21 15:34 upset stomach Physical Exam Vitals: Vital Signs Temp Pulse Resp BP Pulse Ox 12/09/21 11:53 97 F L 101 H 20 157/79 98 12/09/21 06:06 97.9 F 81 18 132/72 97 12/08/21 22:25 96 18 125/76 99 12/08/21 19:00 84 16 118/54 96 12/08/21 18:00 86 16 127/52 96 12/08/21 17:00 89 16 98/54 97 12/08/21 16:00 87 16 103/60 98 GENERAL DESCRIPTION: Middle-aged male lying in bed, no distress. No tachypnea or accessory muscle of respiration use. HEENT: Shows Pallor , no scleral icterus. Oral mucous membrane is dry. No pharyngeal erythema or thrush NECK: Trachea central, no thyromegaly. LUNGS: Unlabored breathing. Clear to auscultation anteriorly. No wheeze or crackle. HEART: S1, S2, regular rate and rhythm. No loud murmur ABDOMEN: Soft, no tenderness , guarding or rigidity, no organomegaly Sacrum did have small wound with minimal drainage on the dressing EXTREMITIES: No edema of feet. SKIN: No rash, no masses palpable. NEUROLOGICAL: The patient is awake, alert, oriented x3, mood and affect normal. Results CBC & Chem 7: 12/09/21 16:45 12/08/21 16:14 Labs: Abnormal Lab Results - Last 24 Hours (Table) 12/08/21 12/08/21 12/08/21 Range/Units 16:14 16:14 16:14 RBC 4.13 L (4.30-5.90) m/uL Hgb 10.1 L (13.0-17.5) gm/dL Hct 32.2 L (39.0-53.0) % MCV 77.9 L (80.0-100.0) fL MCH 24.4 L (25.0-35.0) pg RDW 15.7 H (11.5-15.5) % Lymphocytes # 0.3 L (1.0-4.8) k/uL Sodium 132 L (137-145) mmol/L Glucose 144 H (74-99) mg/dL Total Protein 6.2 L (6.3-8.2) g/dL Albumin 3.1 L (3.5-5.0) g/dL Ur Specific [place] 1.041 H (1.001-1.035) Urine Protein 1+ H (Negative) Urine Glucose (UA) 1+ H (Negative) Urine Ketones Trace H (Negative) Hyaline Casts 3 H (0-2) /lpf Urine Mucus Few H (None) /hpf Microbiology - Last 24 Hours (Table) 12/08/21 16:14 Gram Stain - Preliminary Buttock Wound Culture - Preliminary Assessment and Plan (1) Infected wound Current Visit: Yes Status: Acute Code(s): T14.8XXA - OTHER INJURY OF UNSPECIFIED BODY REGION, INITIAL ENCOUNTER; L08.9 - LOCAL INFECTION OF THE SKIN AND SUBCUTANEOUS TISSUE, UNSP SNOMED Code(s): 79940571 Plan: 1patient with his to rectal cancer concerning for a colocutaneous fistula and destruction of the coccyx concerning for osteomyelitis patient culture done at this facility in October 12, 2021 was positive for E. coli Proteus and anaerobes patient subsequently did have a management done at [facility] not presenting with worsening pain and drainage with the concern for failure of medical treatment. 2- Patient to continue with Zosyn to bridge of all 3 pathogen was sensitive 3-patient will likely need surgical debridement and drainage procedure for the patient currently being in the positive getting transferred to [facility] as the surgical procedure cannot be done here. We will follow on clinical condition and cultures to further adjust medication if needed Thank you for this consultation will follow this patient along with you Time with Patient: Greater than 30
[2021-12-10] MEDS: HYDROmorphone 1 MG/ML 1 ML SYRINGE IVP PRN (00:41)
--- NOTE | 2021-12-10 07:30 | P.DS ---
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 Patient was admitted in Sep 2021 and had a sigmoidoscopy which showed 2 stents present wtih stricture of the distal rectum and complete occlusion of the lumen; colocutaneous fistula with additional tunneling down to the sacral bone. He required transfer to [facility]. He was subsequently discharged home on rocpehin and flagyl. Patient reports he is currently on IV antibiotics through his PICC line and has been taking them daily. He reports that they did not plan on any surgical procedures at that point in time. He is asking to be admitted here initially as he thinks Dr. Lawson can help him. He reports that since he was discharged home he has been sleeping in a chair. He has been unable to get up and down successfully. He went to his primary care physician who directed him to the ER due to his level of weakness, bleeding, and the unhealing nature of his wound. CT of the pelvis was completed which again demonstarted acute on chronic osteomyelitis of the sacrum adn coccys with myositis of the gluteus ilana. Case was discussed with Dr. Lawson who again recommended transfer to [facility]. This was arranged, however there was no bed immediatly available. Patient was subsequently admitted here while awaiting transfer. He was stated on zosyn, cultures were growing gram negative rods (prior admission was E. coli and Proteus). He was seen by ID who agreed with deyvi. He was transferred to [facility] on 12/10/21 at 0041. for physical exam see progress not same date. A total of 25 minutes of time were spent preparing this complex discharge summary . Patient Condition at Discharge: Fair Plan - Discharge Summary Discharge Rx Participant: Yes New Discharge Prescriptions: No Action cefTRIAXone [Rocephin] 2 gm IV DAILY Meloxicam 15 mg PO DAILY metFORMIN HCL [Glucophage] 500 mg PO DAILY HYDROcodone/APAP 10-325MG [[place] 10-325] 2 tab PO Q6H PRN PRN Reason: Pain Discharge Medication List HYDROcodone/APAP 10-325MG [[place] 10-325] 2 tab PO Q6H PRN 12/08/21 [History] Meloxicam 15 mg PO DAILY 12/08/21 [History] cefTRIAXone [Rocephin] 2 gm IV DAILY 12/08/21 [History] metFORMIN HCL [Glucophage] 500 mg PO DAILY 12/08/21 [History] Follow up Appointment(s)/Referral(s): Otoniel Gann MD [Primary Care Provider] - 1-2 days Discharge Disposition: OTHER INSTITUTION NOT DEFINED
[2021-12-10] MEDS ORDERED: ENOXAPARIN 40 MG/0.4 ML SYRINGE SQ SCH (09:00)
--- NOTE | 2021-12-12 18:55 | P.HPIM ---
History of Present Illness H&P Date: 12/08/21 (please see consult note. ) Past Medical History Past Medical History: Cancer, GERD/Reflux, Osteoarthritis (OA) Additional Past Medical History / Comment(s): Rectal cancer 2017 with colectomy/ileostomy then reversal/chemo pills and radiation, partial colonic obstruction-pt sent to [place] and had diverting loop colostomy, chronic low back pain, arthritis in multiple joints, neuropathy bilateral feet/toes and R hand, iron deficiency anemia. History of Any Multi-Drug Resistant Organisms: None Reported Past Surgical History: Appendectomy, Bowel Resection, Hernia Repair, Orthopedic Surgery, Tonsillectomy Additional Past Surgical History / Comment(s): Colectomy/ileostomy with reversal, diverting loop colostomy, colonoscopies, L elbow bursa surgery, double hernia repair Past Anesthesia/Blood Transfusion Reactions: No Reported Reaction Past Psychological History: No Psychological Hx Reported Smoking Status: Former smoker - Past Family History Mother Family Medical History: Cancer (pancreatic), Diabetes Mellitus Additional Family Medical History / Comment(s): from liver cancer Father Family Medical History: Myocardial Infarction ([place]) Additional Family Medical History / Comment(s): Pt has not spoken to his father in years and does not know much of his medical hx. Medications and Allergies Home Medications Medication Instructions Recorded Confirmed Type HYDROcodone/APAP 10-325MG [[place] 2 tab PO Q6H PRN 12/08/21 12/08/21 History 10-325] Meloxicam 15 mg PO DAILY 12/08/21 12/08/21 History cefTRIAXone [Rocephin] 2 gm IV DAILY 12/08/21 12/08/21 History metFORMIN HCL [Glucophage] 500 mg PO DAILY 12/08/21 12/08/21 History Allergies Allergy/AdvReac Type Severity Reaction Status Date / Time ketorolac [From Toradol] Allergy Nausea & Verified 12/08/21 15:34 Vomiting morphine Allergy itching, Verified 12/08/21 15:34 upset stomach Physical Exam Osteopathic Statement: *. No significant issues noted on an osteopathic structural exam other than those noted in the History and Physical/Consult. Results CBC & Chem 7: 12/09/21 16:45 12/08/21 16:14 Labs: Microbiology - Last 24 Hours (Table) 12/08/21 16:14 Blood Culture - Preliminary Blood No Growth after 96 hours 12/08/21 16:14 Blood Culture - Preliminary Blood No Growth after 96 hours Thrombosis Risk Factor Assmnt - Choose All That Apply Any of the Below Risk Factors Present?: Yes Each Factor Represents 1 point: Age 41-60 years, Obesity (BMI >25) Other Risk Factors: No Other congenital or acquired thrombophilia - If yes, enter type in comment: No Thrombosis Risk Factor Assessment Total Risk Factor Score: 2 Thrombosis Risk Factor Assessment Level: Low Risk
== END 2021-12-10 00:52 | disposition other institution (70) | DRG 603 ==
LOC: EC 15:19 → SUPCPDRO 15:19 → UNDOADMOB 17:25 → 4SSUR 17:25 → 5NMEDONC 12-09 20:27
PROVIDERS: ADMIT Internal Medicine; ATTEND Internal Medicine
DX: L03.317 Cellulitis of buttock (principal); M46.28 Osteomyelitis of vertebra, sacral and sacrococcygeal region; K63.2 Fistula of intestine; K51.911 Ulcerative colitis, unspecified with rectal bleeding; D62 Acute posthemorrhagic anemia; Z68.43 Body mass index [BMI] 50.0-59.9, adult; K92.2 Gastrointestinal hemorrhage, unspecified; M60.9 Myositis, unspecified; T81.89XA Other complications of procedures, not elsewhere classified, initial encounter; E11.69 Type 2 diabetes mellitus with other specified complication; E66.01 Morbid (severe) obesity due to excess calories; Z20.822 Contact with and (suspected) exposure to COVID-19; G62.9 Polyneuropathy, unspecified; G89.29 Other chronic pain; R00.0 Tachycardia, unspecified; R58 Hemorrhage, not elsewhere classified; M54.50 Low back pain, unspecified; K21.9 Gastro-esophageal reflux disease without esophagitis; Z79.1 Long term (current) use of non-steroidal anti-inflammatories (NSAID); Z79.84 Long term (current) use of oral hypoglycemic drugs; Z80.0 Family history of malignant neoplasm of digestive organs; Z82.49 Family history of ischemic heart disease and other diseases of the circulatory system; Z83.3 Family history of diabetes mellitus; Z85.048 Personal history of other malignant neoplasm of rectum, rectosigmoid junction, and anus; Z87.891 Personal history of nicotine dependence; Z93.3 Colostomy status; Z90.49 Acquired absence of other specified parts of digestive tract; Z88.5 Allergy status to narcotic agent; Z88.8 Allergy status to other drugs, medicaments and biological substances
CPT/HCPCS: 36415; 72193; 80053; 81001; 83605; 85025; 85027; 85610; 85730; 87040; 87070; 87077; 87186; 87205; 87635; 93005; 96361; 96365; 96366; 96375; 96376; 99285

== ENCOUNTER 2021-12-30 16:37 | Emergency (ER) | payer OTHER ==
[2021-12-30 16:41] VITALS: TEMP 98
[2021-12-30] MEDS ORDERED: ONDANSETRON 4 MG/2 ML VIAL IVP STA (22:10)
[2021-12-30] MEDS ORDERED: HYDROmorphone 1 MG/ML 1 ML SYRINGE IVP STA (22:10)
[2021-12-30] MEDS ORDERED: SODIUM CHLORIDE 0.9% 1,000 ML IV STA (22:10)
--- NOTE | 2021-12-30 22:53 | ED ---
General Adult HPI - General Chief complaint: Skin/Abscess/Foreign Body Stated complaint: Cyst/Lower Back Pain Time Seen by Provider: 12/30/21 21:38 Source: patient, RN notes reviewed Mode of arrival: ambulatory Limitations: no limitations - History of Present Illness Initial comments: 61-year-old male presents to the emergency department for evaluation of pain, redness, and swelling to the low back. Patient states he has a recurrent cyst or abscess in that area that continues to drain. Patient reports recent hospitalization at [facility] for antibiotic treatment. States he was discharged earlier this week on oral antibiotics and has been taking them as directed. Patient states he was seen by his PCP earlier today and was sent here for hospitalization. Vehemently refuses discussion of going to [facility] as he felt he did not receive adequate care. Denies fever, chills, cough, congestion, shortness of breath, abdominal pain, nausea, and vomiting. - Related Data Home Medications Medication Instructions Recorded Confirmed HYDROcodone/APAP 10-325MG [[place] 2 tab PO Q6H 12/08/21 12/30/21 10-325] metFORMIN HCL [Glucophage] 500 mg PO BID 12/08/21 12/30/21 Acetaminophen [Tylenol Extra 500 - 1,000 mg PO Q6H PRN 12/30/21 12/30/21 Strength] Amoxicillin/Potassium Clav 1 tab PO TID 12/30/21 12/30/21 [Augmentin 875-125 Tablet] HYDROmorphone [Dilaudid] 4 mg PO Q6H 12/30/21 12/30/21 Magnesium Oxide 400 mg PO BID 12/30/21 12/30/21 Naloxone HCl 4 mg NS ONCE PRN 12/30/21 12/30/21 diphenhydrAMINE [Benadryl] 50 mg PO Q6H 12/30/21 12/30/21 Allergies Allergy/AdvReac Type Severity Reaction Status Date / Time ketorolac [From Toradol] Allergy Nausea & Verified 12/30/21 22:20 Vomiting morphine Allergy itching, Verified 12/30/21 22:20 upset stomach Review of Systems ROS Statement: Those systems with pertinent positive or pertinent negative responses have been documented in the HPI. ROS Other: All systems not noted in ROS Statement are negative. Past Medical History Past Medical History: Cancer, GERD/Reflux, Osteoarthritis (OA) Additional Past Medical History / Comment(s): Rectal cancer 2017 with colectomy/ileostomy then reversal/chemo pills and radiation, partial colonic obstruction-pt sent to [place] and had diverting loop colostomy, chronic low back pain, arthritis in multiple joints, neuropathy bilateral feet/toes and R hand, iron deficiency anemia. History of Any Multi-Drug Resistant Organisms: None Reported Past Surgical History: Appendectomy, Bowel Resection, Hernia Repair, Orthopedic Surgery, Tonsillectomy Additional Past Surgical History / Comment(s): Colectomy/ileostomy with reversal, diverting loop colostomy, colonoscopies, L elbow bursa surgery, double hernia repair Past Anesthesia/Blood Transfusion Reactions: No Reported Reaction Past Psychological History: No Psychological Hx Reported Smoking Status: Former smoker Past Alcohol Use History: None Reported Past Drug Use History: None Reported - Past Family History Mother Family Medical History: Cancer (pancreatic), Diabetes Mellitus Additional Family Medical History / Comment(s): from liver cancer Father Family Medical History: Myocardial Infarction ([place]) Additional Family Medical History / Comment(s): Pt has not spoken to his father in years and does not know much of his medical hx. General Exam Limitations: physical limitation (ambulates with cane) General appearance: alert, in no apparent distress (Well-developed, well- nourished male in no acute distress. Initial temperature 98.0, pulse 120, r espirations 22, blood pressure 160/81, pulse ox 98% on room air.) Eye exam: Present: normal appearance. Absent: scleral icterus, conjunctival injection ENT exam: Present: normal exam, normal oropharynx, mucous membranes moist Respiratory exam: Present: normal lung sounds bilaterally. Absent: respiratory distress, wheezes, rales, rhonchi, stridor, chest wall tenderness Cardiovascular Exam: Present: regular rate, normal rhythm, normal heart sounds. Absent: systolic murmur, diastolic murmur, rubs, gallop, clicks GI/Abdominal exam: Present: soft, normal bowel sounds, other (large abdominal habitus). Absent: distended, tenderness, guarding, rebound, rigid Back exam: Present: other ( small open area at midline upper aspect of intergluteal cleft; draining thin brown discharge; 3x5cm erythematous area extending from abscess toward right buttock; minimal tenderness) Neurological exam: Present: alert, oriented X3, normal gait (ambulates with cane) Psychiatric exam: Present: normal affect, normal mood, other (patient becomes anxious and hostile when discussing need to transfer to [facility] for ongoing care.) Skin exam: Present: warm, dry Course Vital Signs 12/30/21 12/30/21 16:39 23:10 Temperature 98 F Pulse Rate 120 H 80 Respiratory 22 18 Rate Blood Pressure 160/81 169/85 O2 Sat by Pulse 98 98 Oximetry - Reevaluation(s) Reevaluation #1: 12/31/21 22:00 Chart thoroughly reviewed and allergies clarified. 12/31/21 02:30 This patient's care was discussed at length with my attending, Dr. Sesay, as patient refuses transfer to any other facility despite the fact that his care is being managed at [facility] and there is documentation that this decision was made during a recent hospitalization. Patient was adamant that he would decline transfer; explained that he would need to sign out AMA and assume risks associated. Ongoing lengthy discussion with patient about appropriate follow up care and strict adherence with his home medication regimen. Medical Decision Making - Medical Decision Making This is a 61-year-old male with a past medical history of colorectal cancer in 2017 resulting in colostomy who presents to the Emergency Department for evaluation of draining pilonidal abscess. Upon exam, patient verbalizes discomfort, but is in no acute distress. He is able to ambulate to the bathroom utilizing his cane. He was tachycardic initially, but is afebrile and experiencing moderate amount of pain. Physical exam findings are signficant for mildly erythematous area extending from the pilonidal abcess that is open and draining. CT pelvis shows increased fluid collection consistent with abscess and chronic osteomyelitis of the coccyx. Laboratory studies were reviewed. Patient is chronically anemic and hyponatremia is not unusual for him. Lactic was elevated at 2.5. He did receive a liter of IV fluids. He was also given Dilaudid for pain. Patient is taking his antibiotics as prescribed by [facility] upon discharge Sunday. Discussed treatment plan with this patient at length. I recommended transfer to [facility] for ongoing care. Patient adamnatly refuses transfer to any other facility stating that he knows Dr. Lawson can fix this issue. Explained that I had reviewed his medical record at length including a recent hospitalization in which Dr. Lawson recommends transfer to [facility] for further otis gement of this condition. Patient was unahppy with this. Informed the patient that he could sign out AMA and be discharged home to continue on current medication regimen, which is what patient ultimately concluded. Return parameters were discussed in detail. Encouraged to follow as he had been direc elkin by his [facility] providers. This patient's care was discussed at length with my attending, Dr. Sesay. - Lab Data Result diagrams: 12/30/21 23:01 12/30/21 23:01 Lab Results 12/30/21 12/30/21 12/30/21 Range/Units 23:01 23:01 23:01 WBC 10.3 (3.8-10.6) k/uL RBC 4.67 (4.30-5.90) m/uL Hgb 11.4 L (13.0-17.5) gm/dL Hct 37.0 L (39.0-53.0) % MCV 79.1 L (80.0-100.0) fL MCH 24.3 L (25.0-35.0) pg MCHC 30.7 L (31.0-37.0) g/dL RDW 16.6 H (11.5-15.5) % Plt Count 244 (150-450) k/uL MPV 7.0 Neutrophils % 80 % Lymphocytes % 7 % Monocytes % 10 % Eosinophils % 0 % Basophils % 0 % Neutrophils # 8.2 H (1.3-7.7) k/uL Lymphocytes # 0.7 L (1.0-4.8) k/uL Monocytes # 1.1 H (0-1.0) k/uL Eosinophils # 0.0 (0-0.7) k/uL Basophils # 0.0 (0-0.2) k/uL Hypochromasia Marked Anisocytosis Slight Microcytosis Slight Sodium 130 L (137-145) mmol/L Potassium 4.9 (3.5-5.1) mmol/L Chloride 100 (98-107) mmol/L Carbon Dioxide 19 L (22-30) mmol/L Anion Gap 11 mmol/L BUN 15 (9-20) mg/dL Creatinine 0.67 (0.66-1.25) mg/dL Est GFR (CKD-EPI)AfAm >90 (>60 ml/min/1.73 sqM) Est GFR (CKD-EPI)NonAf >90 (>60 ml/min/1.73 sqM) Glucose 140 H (74-99) mg/dL Lactic Ac Sepsis Rflx Plasma Lactic Acid Gerry 2.5 H* (0.7-2.0) mmol/L Calcium 8.9 (8.4-10.2) mg/dL Total Bilirubin 0.9 (0.2-1.3) mg/dL AST 40 (17-59) U/L ALT 18 (4-49) U/L Alkaline Phosphatase 73 (38-126) U/L Total Protein 7.5 (6.3-8.2) g/dL Albumin 3.9 (3.5-5.0) g/dL 12/31/21 Range/Units 00:10 WBC (3.8-10.6) k/uL RBC (4.30-5.90) m/uL Hgb (13.0-17.5) gm/dL Hct (39.0-53.0) % MCV (80.0-100.0) fL MCH (25.0-35.0) pg MCHC (31.0-37.0) g/dL RDW (11.5-15.5) % Plt Count (150-450) k/uL MPV Neutrophils % % Lymphocytes % % Monocytes % % Eosinophils % % Basophils % % Neutrophils # (1.3-7.7) k/uL Lymphocytes # (1.0-4.8) k/uL Monocytes # (0-1.0) k/uL Eosinophils # (0-0.7) k/uL Basophils # (0-0.2) k/uL Hypochromasia Anisocytosis Microcytosis Sodium (137-145) mmol/L Potassium (3.5-5.1) mmol/L Chloride (98-107) mmol/L Carbon Dioxide (22-30) mmol/L Anion Gap mmol/L BUN (9-20) mg/dL Creatinine (0.66-1.25) mg/dL Est GFR (CKD-EPI)AfAm (>60 ml/min/1.73 sqM) Est GFR (CKD-EPI)NonAf (>60 ml/min/1.73 sqM) Glucose (74-99) mg/dL Lactic Ac Sepsis Rflx Y Plasma Lactic Acid Gerry (0.7-2.0) mmol/L Calcium (8.4-10.2) mg/dL Total Bilirubin (0.2-1.3) mg/dL AST (17-59) U/L ALT (4-49) U/L Alkaline Phosphatase (38-126) U/L Total Protein (6.3-8.2) g/dL Albumin (3.5-5.0) g/dL - Radiology Data Radiology results: report reviewed, image reviewed CT of the pelvis with contrast was obtained. Report was reviewed in its entirety. Impression per Dr. Ho is previous surgery. Irregular fluid collection at the tip of the sacrum consistent with abscess and chronic osteomyelitis of the coccyx. Fluid appears increased compared to old exam. Appearance of the coccyx unchanged. Disposition Clinical Impression: Pilonidal abscess, Chronic osteomyelitis Disposition: Left Against Medical Advice Condition: Serious Instructions (If sedation given, give patient instructions): Osteomyelitis (ED), Self-Care Measures with a Chronic Disease (ED), Abscess (ED) Additional Instructions: If you change your mind regarding transfer to [facility], please return to the Emergency Department. You should follow up with your [facility] providers as directed upon discharge. Continue taking your antibiotic and regular home medications as directed. Return to emergency department with any new, worsening, or concerning symptoms. Is patient prescribed a controlled substance at d/c from ED?: No Referrals: Otoniel Gann MD [Primary Care Provider] - 1-2 days Time of Disposition: 03:13
[2021-12-30 23:12] VITALS: BP 169/85; PULSE 80; RESP 18
[2021-12-30 23:53] LABS: Anisocytosis Slight; Basophils % (A) 0 %; Eosinophils % (A) 0 %; HGB 11.4 gm/dL (13.0-17.5); Hypochromasia Marked; Lymphocytes # (A) 0.7 k/uL (1.0-4.8); Lymphocytes % (A) 7 %; MCH 24.3 pg (25.0-35.0); MCHC 30.7 g/dL (31.0-37.0); MCV 79.1 fL (80.0-100.0); Microcytosis Slight; Monocytes # (A) 1.1 k/uL (0-1.0); Monocytes % (A) 10 %; Neutrophils # (A) 8.2 k/uL (1.3-7.7); Neutrophils % (A) 80 %; Platelet Count 244 k/uL (150-450); RBC 4.67 m/uL (4.30-5.90); RDW 16.6 % (11.5-15.5); WBC 10.3 k/uL (3.8-10.6)
[2021-12-30 23:56] LABS: ALT 18 U/L (4-49); African American GFR (CKD) >90 (>60 ml/min/1.73 sqM); Anion Gap 11 mmol/L; Blood Urea Nitrogen 15 mg/dL (9-20); Calcium 8.9 mg/dL (8.4-10.2); Carbon Dioxide 19 mmol/L (22-30); Chloride 100 mmol/L (98-107); Glucose 140 mg/dL (74-99); Non-African American GFR(CKD) >90 (>60 ml/min/1.73 sqM); Sodium 130 mmol/L (137-145); Total Bilirubin 0.9 mg/dL (0.2-1.3)
[2021-12-31 00:08] LABS: Potassium 4.9 mmol/L (3.5-5.1)
[2021-12-31 00:09] LABS: AST 40 U/L (17-59); Albumin 3.9 g/dL (3.5-5.0); Alkaline Phosphatase 73 U/L (38-126); Total Protein 7.5 g/dL (6.3-8.2)
[2021-12-31] MEDS ORDERED: SODIUM CHLORIDE 0.9% 1,000 ML IV STA (00:16)
--- NOTE | 2021-12-31 01:09 | CT ---
EXAMINATION TYPE: CT pelvis w con DATE OF EXAM: 12/31/2021 COMPARISON: 12/08/2021 HISTORY: pain CT DLP: 3410 mGycm Automated exposure control for dose reduction was used. CONTRAST: Performed with IV Contrast, patient injected with 100 mL of Isovue 300. Images obtained from the iliac crest to the subtrochanteric femurs with IV contrast. There is a loop colostomy in the left lower quadrant. No sign of a bowel obstruction. There are some small bowel fluid levels. No free air. There is stent in the rectosigmoid colon. There is previous bay rgery. There is irregular 5 cm fluid collection at the tip of the sacrum consistent with pilonidal ab scess. No presacral fluid. Bladder distends smoothly. There is severe osteoarthritis in the right hip joint. 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 There appears to be bone loss at the tip of the sacrum with loss of coccygeal segments. IMPRESSION: Previous surgery. Irregular fluid collection at the tip of the sacrum consistent with abscess and chr onic osteomyelitis of the coccyx. Fluid appears increased compared to old CT scan. Appearance of the coccyx unchanged.
[2021-12-31] MEDS ORDERED: HYDROmorphone 1 MG/ML 1 ML SYRINGE IVP STA (01:11)
== END 2021-12-31 03:08 | disposition left against medical advice (07) ==
LOC: EC 16:37
DX: M54.50 Low back pain, unspecified (principal); Z82.49 Family history of ischemic heart disease and other diseases of the circulatory system; L05.01 Pilonidal cyst with abscess; M86.6 Other chronic osteomyelitis; Z87.891 Personal history of nicotine dependence; Z88.6 Allergy status to analgesic agent; Z88.5 Allergy status to narcotic agent
CPT/HCPCS: 36415 ×2; 80053; 83605; 85025; 87040; 87070; 87205; 87077; 87186; 72193; 99284; 96374; 96375; 96376; 96361; J2405; J1170 ×2; Q9967

== ENCOUNTER 2022-01-01 16:48 | Emergency (ER) | payer OTHER ==
[2022-01-01 16:55] VITALS: RESP 18; TEMP 99.6
[2022-01-01] MEDS ORDERED: HYDROmorphone 1 MG/ML 1 ML SYRINGE IVP STA ×3 (17:01→19:50)
[2022-01-01] MEDS ORDERED: SODIUM CHLORIDE 0.9% 1,000 ML IV STA (17:01)
[2022-01-01] MEDS ORDERED: ONDANSETRON 4 MG/2 ML VIAL IVP STA (17:01)
--- NOTE | 2022-01-01 17:07 | ED ---
Skin/Abscess/FB HPI - General Stated complaint: Abscess Time Seen by Provider: 01/01/22 16:52 Source: patient, EMS, RN notes reviewed Mode of arrival: EMS Limitations: no limitations, physical limitation - History of Present Illness Initial comments: This is a pleasant 61-year-old male with a history of rectal cancer. Patient has had recurrent problems with a cyst in the gluteal cleft area which has been infected several times. Apparently the patient has been seen several times at [facility], most recently he was admitted there for 6 days and released on December 26. He is on Augmentin. However he states the area is worsening despite the antibiotics. Patient also has increased pain. Patient arrives via ambulance. Patient was seen here on Sunday for the same thing. Apparently it was suggested that he be transferred to [facility]. However the patient refused this. Pain to the gluteal cleft area with swelling and erythema. Pain is exacerbated by palpation. No headache, no fever or chills, no changes in vision or hearing, no sore throat or difficulty with speech, no neck pain, no chest pain or shortness of breath, no abdominal pain, no nausea or vomiting, no changes in urination or bowel movements, no numbness or tingling, no extremity pain, no skin rashes or lesions. - Related Data Home Medications Medication Instructions Recorded Confirmed HYDROcodone/APAP 10-325MG [[place] 2 tab PO Q6H 12/08/21 12/30/21 10-325] metFORMIN HCL [Glucophage] 500 mg PO BID 12/08/21 12/30/21 Acetaminophen [Tylenol Extra 500 - 1,000 mg PO Q6H PRN 12/30/21 12/30/21 Strength] Amoxicillin/Potassium Clav 1 tab PO TID 12/30/21 12/30/21 [Augmentin 875-125 Tablet] HYDROmorphone [Dilaudid] 4 mg PO Q6H 12/30/21 12/30/21 Magnesium Oxide 400 mg PO BID 12/30/21 12/30/21 Naloxone HCl 4 mg NS ONCE PRN 12/30/21 12/30/21 diphenhydrAMINE [Benadryl] 50 mg PO Q6H 12/30/21 12/30/21 Allergies Allergy/AdvReac Type Severity Reaction Status Date / Time ketorolac [From Toradol] Allergy Nausea & Verified 01/01/22 16:55 Vomiting morphine Allergy itching, Verified 01/01/22 16:55 upset stomach Review of Systems ROS Statement: Those systems with pertinent positive or pertinent negative responses have been documented in the HPI. ROS Other: All systems not noted in ROS Statement are negative. Past Medical History Past Medical History: Cancer, GERD/Reflux, Osteoarthritis (OA) Additional Past Medical History / Comment(s): Rectal cancer 2017 with colectomy/ileostomy then reversal/chemo pills and radiation, partial colonic obstruction-pt sent to [place] and had diverting loop colostomy, chronic low back pain, arthritis in multiple joints, neuropathy bilateral feet/toes and R hand, iron deficiency anemia. History of Any Multi-Drug Resistant Organisms: None Reported Past Surgical History: Appendectomy, Bowel Resection, Hernia Repair, Orthopedic Surgery, Tonsillectomy Additional Past Surgical History / Comment(s): Colectomy/ileostomy with reversal, diverting loop colostomy, colonoscopies, L elbow bursa surgery, double hernia repair Past Anesthesia/Blood Transfusion Reactions: No Reported Reaction Past Psychological History: No Psychological Hx Reported Smoking Status: Former smoker Past Alcohol Use History: Occasional Past Drug Use History: None Reported - Past Family History Mother Family Medical History: Cancer (pancreatic), Diabetes Mellitus Additional Family Medical History / Comment(s): from liver cancer Father Family Medical History: Myocardial Infarction ([place]) Additional Family Medical History / Comment(s): Pt has not spoken to his father in years and does not know much of his medical hx. General Exam Limitations: no limitations, physical limitation General appearance: alert, in distress Head exam: Present: atraumatic, normocephalic, normal inspection Eye exam: Present: normal appearance, PERRL, EOMI. Absent: scleral icterus, conjunctival injection, periorbital swelling ENT exam: Present: normal exam, mucous membranes moist Neck exam: Present: normal inspection. Absent: tenderness, meningismus, lymphadenopathy Respiratory exam: Present: normal lung sounds bilaterally. Absent: respiratory distress, wheezes, rales, rhonchi, stridor Cardiovascular Exam: Present: regular rate, normal rhythm, normal heart sounds. Absent: systolic murmur, diastolic murmur, rubs, gallop, clicks GI/Abdominal exam: Present: soft, normal bowel sounds. Absent: distended, tenderness, guarding, rebound, rigid Extremities exam: Present: normal inspection, full ROM, normal capillary refill. Absent: tenderness, pedal edema, joint swelling, calf tenderness Back exam: Present: normal inspection, full ROM. Absent: CVA tenderness (R), CVA tenderness (L), paraspinal tenderness, vertebral tenderness Neurological exam: Present: alert, oriented X3, CN II-XII intact Psychiatric exam: Present: normal affect, normal mood Skin exam: Present: warm, dry, intact, erythema (Patient has an erythematous, tender area overlying the right gluteal cleft area consistent with an infected pilonidal cyst. No current drainage.). Absent: normal color, rash Course Vital Signs 01/01/22 16:51 Temperature 99.6 F Pulse Rate 106 H Respiratory 18 Rate Blood Pressure 160/94 O2 Sat by Pulse 98 Oximetry Medical Decision Making - Medical Decision Making Patient presents with recurrent abscess to the gluteal cleft area. Likely an infected Tylenol cyst. Patient was recently admitted to [facility]. He states he had cultures done of the area there. He is on Augmentin but states that the symptomology is worsening despite antibiotics. Patient had a computed tomography scan done here on Sunday night which showed osteomyelitis of the coccyx area. This was increased in severity from the previous study. Again, patient has been on antibiotics. Apparently cultures from [facility] were showing Proteus and E. coli species--- seen on previous documentation. This was sensitive to Zosyn. I'm going to order 4.5 g IV piggyback pending transfer. This case was discussed with Dr. Lawson previously who recurrent recommended transfer to [facility] for continuity of care. Patient be transferred to [facility] for continuity of care. This case was discussed with the patient's surgeon here who requested the transfer. The case was discussed in detail with ED attending physician. Presentation, findings, treatment plan discussed in detail. Dr. Issa Case discussed with the accepting physician at [facility], Dr. Rojas with subsequent case. The ER to ER transfer. Patient stable for transfer - Lab Data Result diagrams: 01/01/22 17:28 01/01/22 17:28 Lab Results 01/01/22 01/01/22 01/01/22 Range/Units 17:28 17:28 17:28 WBC 7.7 (3.8-10.6) k/uL RBC 4.97 (4.30-5.90) m/uL Hgb 11.8 L (13.0-17.5) gm/dL Hct 39.6 (39.0-53.0) % MCV 79.8 L (80.0-100.0) fL MCH 23.7 L (25.0-35.0) pg MCHC 29.7 L (31.0-37.0) g/dL RDW 16.0 H (11.5-15.5) % Plt Count 273 (150-450) k/uL MPV 7.1 Neutrophils % 85 % Lymphocytes % 7 % Monocytes % 6 % Eosinophils % 0 % Basophils % 0 % Neutrophils # 6.6 (1.3-7.7) k/uL Lymphocytes # 0.5 L (1.0-4.8) k/uL Monocytes # 0.5 (0-1.0) k/uL Eosinophils # 0.0 (0-0.7) k/uL Basophils # 0.0 (0-0.2) k/uL Hypochromasia Moderate Anisocytosis Slight ESR Cancelled Sodium 139 (137-145) mmol/L Potassium 4.2 (3.5-5.1) mmol/L Chloride 109 H (98-107) mmol/L Carbon Dioxide 25 (22-30) mmol/L Anion Gap 5 mmol/L BUN 9 (9-20) mg/dL Creatinine 0.58 L (0.66-1.25) mg/dL Est GFR (CKD-EPI)AfAm >90 (>60 ml/min/1.73 sqM) Est GFR (CKD-EPI)NonAf >90 (>60 ml/min/1.73 sqM) Glucose 143 H (74-99) mg/dL Plasma Lactic Acid Gerry 1.1 (0.7-2.0) mmol/L Calcium 8.9 (8.4-10.2) mg/dL Total Bilirubin 0.5 (0.2-1.3) mg/dL AST 23 (17-59) U/L ALT 15 (4-49) U/L Alkaline Phosphatase 75 (38-126) U/L C-Reactive Protein 14.8 H (<1.0) mg/dL Total Protein 7.0 (6.3-8.2) g/dL Albumin 3.6 (3.5-5.0) g/dL 01/01/22 Range/Units 17:50 WBC (3.8-10.6) k/uL RBC (4.30-5.90) m/uL Hgb (13.0-17.5) gm/dL Hct (39.0-53.0) % MCV (80.0-100.0) fL MCH (25.0-35.0) pg MCHC (31.0-37.0) g/dL RDW (11.5-15.5) % Plt Count (150-450) k/uL MPV Neutrophils % % Lymphocytes % % Monocytes % % Eosinophils % % Basophils % % Neutrophils # (1.3-7.7) k/uL Lymphocytes # (1.0-4.8) k/uL Monocytes # (0-1.0) k/uL Eosinophils # (0-0.7) k/uL Basophils # (0-0.2) k/uL Hypochromasia Anisocytosis ESR 85 H Sodium (137-145) mmol/L Potassium (3.5-5.1) mmol/L Chloride (98-107) mmol/L Carbon Dioxide (22-30) mmol/L Anion Gap mmol/L BUN (9-20) mg/dL Creatinine (0.66-1.25) mg/dL Est GFR (CKD-EPI)AfAm (>60 ml/min/1.73 sqM) Est GFR (CKD-EPI)NonAf (>60 ml/min/1.73 sqM) Glucose (74-99) mg/dL Plasma Lactic Acid Gerry (0.7-2.0) mmol/L Calcium (8.4-10.2) mg/dL Total Bilirubin (0.2-1.3) mg/dL AST (17-59) U/L ALT (4-49) U/L Alkaline Phosphatase (38-126) U/L C-Reactive Protein (<1.0) mg/dL Total Protein (6.3-8.2) g/dL Albumin (3.5-5.0) g/dL Disposition Clinical Impression: Osteomyelitis of coccyx, Pilonidal abscess Disposition: OTHER INSTITUTION NOT DEFINED Condition: Stable Is patient prescribed a controlled substance at d/c from ED?: No Referrals: Otoniel Gann MD [Primary Care Provider] - 1-2 days Time of Disposition: 19:05 - Out of Hospital Transfer - Req. Specs Out of Hospital Transfer - Requested Specifics: Other Emergency Center
[2022-01-01] MEDS ORDERED: PIPERACILLIN-TAZOBACTAM 4.5 GM in SODIUM CHLORIDE 0.9% 100 ML IVPB STA (17:12)
[2022-01-01] MEDS ORDERED: PIPERACILLIN-TAZOBACTAM 3.375 GM in SODIUM CHLORIDE 0.9% 100 ML IVPB STA (17:14)
[2022-01-01 17:41] LABS: Anisocytosis Slight; Basophils % (A) 0 %; Eosinophils % (A) 0 %; HCT 39.6 % (39.0-53.0); HGB 11.8 gm/dL (13.0-17.5); Hypochromasia Moderate; Lymphocytes # (A) 0.5 k/uL (1.0-4.8); Lymphocytes % (A) 7 %; MCH 23.7 pg (25.0-35.0); MCHC 29.7 g/dL (31.0-37.0); MCV 79.8 fL (80.0-100.0); Mean Platelet Volume 7.1; Monocytes # (A) 0.5 k/uL (0-1.0); Monocytes % (A) 6 %; Neutrophils # (A) 6.6 k/uL (1.3-7.7); Neutrophils % (A) 85 %; Platelet Count 273 k/uL (150-450); RBC 4.97 m/uL (4.30-5.90); WBC 7.7 k/uL (3.8-10.6)
[2022-01-01 17:56] LABS: ALT 15 U/L (4-49); AST 23 U/L (17-59); African American GFR (CKD) >90 (>60 ml/min/1.73 sqM); Albumin 3.6 g/dL (3.5-5.0); Alkaline Phosphatase 75 U/L (38-126); Anion Gap 5 mmol/L; Blood Urea Nitrogen 9 mg/dL (9-20); Calcium 8.9 mg/dL (8.4-10.2); Carbon Dioxide 25 mmol/L (22-30); Chloride 109 mmol/L (98-107); Glucose 143 mg/dL (74-99); Non-African American GFR(CKD) >90 (>60 ml/min/1.73 sqM); Potassium 4.2 mmol/L (3.5-5.1); Sodium 139 mmol/L (137-145); Total Bilirubin 0.5 mg/dL (0.2-1.3)
[2022-01-01 18:09] LABS: C Reactive Protein 14.8 mg/dL (<1.0)
[2022-01-01 20:34] VITALS: BP 154/68; PULSE 78
== END 2022-01-01 21:21 | disposition other institution (70) ==
LOC: EC 16:48
DX: M46.20 Osteomyelitis of vertebra, site unspecified (principal); L05.01 Pilonidal cyst with abscess; Z87.891 Personal history of nicotine dependence; Z82.49 Family history of ischemic heart disease and other diseases of the circulatory system; Z88.5 Allergy status to narcotic agent; Z88.6 Allergy status to analgesic agent
CPT/HCPCS: 36415; 80053; 85652; 83605; 85025; 86140; 87040; 87635; 99284; 96365; 96366; 96361; 96375; 96376; J2543; J2405; J1170

== ENCOUNTER 2022-01-10 00:28 | Emergency (ER) | payer OTHER ==
[2022-01-10 00:58] VITALS: RESP 18
--- NOTE | 2022-01-10 07:11 | ED ---
General Adult HPI - General Chief complaint: Skin/Abscess/Foreign Body Stated complaint: abscess Time Seen by Provider: 01/10/22 06:28 Source: patient, RN notes reviewed Mode of arrival: wheelchair Limitations: no limitations - History of Present Illness Initial comments: This is a 61-year-old male presents emergency Department chief complaint of buttocks wound. Patient has been dealing with his chronic wound for several months. Patient was recently transferred back down to [facility] for treatment. He states that 1 week in the hospital and was discharged 2 days ago. Patient states he was sent home on Augmentin. Patient states that he needs to rates to take care of him he states he needs help changing his dressings. He's had no fevers or chills he is on multiple pain medications. Patient states that it nathan when his exposed to the air. Patient denies any abdominal pain no headache no chest pain or shortness breath. - Related Data Home Medications Medication Instructions Recorded Confirmed metFORMIN HCL [Glucophage] 500 mg PO BID 12/08/21 01/10/22 Acetaminophen [Tylenol Extra 500 - 1,000 mg PO Q6H PRN 12/30/21 01/10/22 Strength] Amoxicillin/Potassium Clav 1 tab PO TID 12/30/21 01/10/22 [Augmentin 875-125 Tablet] HYDROmorphone [Dilaudid] 2 mg PO Q4H PRN 12/30/21 01/10/22 Naloxone HCl 4 mg NS ONCE PRN 12/30/21 01/10/22 diphenhydrAMINE [Benadryl] 50 mg PO Q6H PRN 12/30/21 01/10/22 DULoxetine HCL [Cymbalta] 60 mg PO DAILY 01/10/22 01/10/22 Melatonin 3 mg PO HS 01/10/22 01/10/22 Menthol [[place]] 7.5 mg MM QID PRN 01/10/22 01/10/22 Oxycodone Myristate [Xtampza ER] See Taper PO DIRECTED 01/10/22 01/10/22 Polyethylene Glycol 3350 [Miralax] 17 gm PO Q72H PRN 01/10/22 01/10/22 Sennosides/Docusate Sodium [Senna 1 cap PO BID PRN 01/10/22 01/10/22 Plus 8.6-50 mg Softgel] methocarbamoL [Methocarbamol] 750 mg PO Q6H PRN 01/10/22 01/10/22 Allergies Allergy/AdvReac Type Severity Reaction Status Date / Time ketorolac [From Toradol] AdvReac Nausea & Verified 01/10/22 09:05 Vomiting morphine AdvReac itching, Verified 01/10/22 09:05 upset stomach Review of Systems ROS Statement: Those systems with pertinent positive or pertinent negative responses have been documented in the HPI. ROS Other: All systems not noted in ROS Statement are negative. Past Medical History Past Medical History: Cancer, GERD/Reflux, Osteoarthritis (OA) Additional Past Medical History / Comment(s): Rectal cancer 2017 with colectomy/ileostomy then reversal/chemo pills and radiation, partial colonic obstruction-pt sent to [facility] and had diverting loop colostomy, chronic low back pain, arthritis in multiple joints, neuropathy bilateral feet/toes and R hand, iron deficiency anemia. History of Any Multi-Drug Resistant Organisms: None Reported Past Surgical History: Appendectomy, Bowel Resection, Hernia Repair, Orthopedic Surgery, Tonsillectomy Additional Past Surgical History / Comment(s): Colectomy/ileostomy with reversal, diverting loop colostomy, colonoscopies, L elbow bursa surgery, double hernia repair Past Anesthesia/Blood Transfusion Reactions: No Reported Reaction Past Psychological History: No Psychological Hx Reported Smoking Status: Former smoker Past Alcohol Use History: Occasional Past Drug Use History: None Reported - Past Family History Mother Family Medical History: Cancer (pancreatic), Diabetes Mellitus Additional Family Medical History / Comment(s): from liver cancer Father Family Medical History: Myocardial Infarction (IA) Additional Family Medical History / Comment(s): Pt has not spoken to his father in years and does not know much of his medical hx. General Exam General appearance: alert, in no apparent distress Head exam: Present: atraumatic, normocephalic, normal inspection Eye exam: Present: normal appearance, PERRL, EOMI. Absent: scleral icterus, conjunctival injection, periorbital swelling Neck exam: Present: normal inspection. Absent: tenderness, meningismus, lymphadenopathy Respiratory exam: Present: normal lung sounds bilaterally. Absent: respiratory distress, wheezes, rales, rhonchi, stridor Cardiovascular Exam: Present: regular rate, normal rhythm, normal heart sounds. Absent: systolic murmur, diastolic murmur, rubs, gallop, clicks GI/Abdominal exam: Present: soft, normal bowel sounds. Absent: distended, tenderness, guarding, rebound, rigid Rectal exam: Present: other (Large buttocks wound noted, erythema, serosanguineous drainage) Skin exam: Present: warm, dry, intact, normal color. Absent: rash Course Vital Signs 01/10/22 00:48 Temperature 98.4 F Pulse Rate 105 H Respiratory 18 Rate Blood Pressure 137/78 O2 Sat by Pulse 97 Oximetry Medical Decision Making - Medical Decision Making Patient's had multiple recent admissions and evaluations. Patient's needs help with home care. Patient case discussed with social work who was set up wound care/home care patient is agreeable as planned he'll continue his antibiotics as prescribed by his surgeon at [facility]. Disposition Clinical Impression: Buttock wound Disposition: HOME SELF-CARE Condition: Stable Additional Instructions: Please return to the Emergency Department if symptoms worsen or any other concerns. Is patient prescribed a controlled substance at d/c from ED?: No Referrals: Otoniel Gann MD [Primary Care Provider] - 1-2 days [facility], [NON-STAFF] - 1-2 days [facility] [NON-STAFF] - 1-2 days Time of Disposition: 10:01
[2022-01-10 12:25] VITALS: BP 147/99; PULSE 101; TEMP 98.3
== END 2022-01-10 12:50 | disposition home or self-care (01) ==
LOC: EC 00:28
DX: S31.819A Unspecified open wound of right buttock, initial encounter (principal); S31.829A Unspecified open wound of left buttock, initial encounter; M19.90 Unspecified osteoarthritis, unspecified site; Z87.891 Personal history of nicotine dependence; Z88.5 Allergy status to narcotic agent; Z88.6 Allergy status to analgesic agent; Z79.899 Other long term (current) drug therapy; X58.XXXA Exposure to other specified factors, initial encounter
CPT/HCPCS: 99282